=== PATIENT | female | born 1975 | race Caucasian/White ===

== ENCOUNTER → 2018-04-04 | Outpatient (CLI) | payer MEDICAID ==
[2018-04-04 10:02] LABS: Basophils % (A) 0 %; Eosinophils # (A) 0.1 k/uL (0-0.7); Eosinophils % (A) 1 %; HCT 36.9 % (34.0-46.0); HGB 12.3 gm/dL (11.4-16.0); Lymphocytes # (A) 2.4 k/uL (1.0-4.8); Lymphocytes % (A) 23 %; MCH 27.9 pg (25.0-35.0); MCHC 33.2 g/dL (31.0-37.0); MCV 84.1 fL (80.0-100.0); Mean Platelet Volume 6.9; Monocytes # (A) 0.4 k/uL (0-1.0); Monocytes % (A) 4 %; Neutrophils # (A) 7.2 k/uL (1.3-7.7); Neutrophils % (A) 69 %; Platelet Count 253 k/uL (150-450); RBC 4.39 m/uL (3.80-5.40); RDW 13.7 % (11.5-15.5); WBC 10.4 k/uL (3.8-10.6)
[2018-04-04 13:11] LABS: Erythrocyte Sedimentation Rate 8 mm/hr (0-20)
[2018-04-04 17:11] LABS: Gliadin AB IgA, Unit <0.2 U/mL
[2018-04-04 18:03] LABS: Peanut IgE <0.10 kU/L
[2018-04-04 18:25] LABS: Walnut IgE (Food) <0.10 kU/L
[2018-04-05 13:39] LABS: Almond IgE <0.35 kU/L (<0.35); Almond IgE Class CLASS 0; Cashew IgE <0.35 kU/L (<0.35); Pecan IgE <0.35 kU/L (<0.35); Pecan IgE Class CLASS 0
[2018-04-05 14:24] LABS: Immunoglobulin M 90.1 mg/dL (40.0-280.0)
[2018-04-05 14:27] LABS: Immunoglobulin A 73.7 mg/dL (60.0-350.0)
== END | disposition home or self-care (01) ==
LOC: LABWHC1 09:24
PROVIDERS: ATTEND Orthopaedic Surgery
DX: K21.9 Gastro-esophageal reflux disease without esophagitis (principal); H66.90 Otitis media, unspecified, unspecified ear; M12.9 Arthropathy, unspecified
CPT/HCPCS: 36415; 82784; 82785; 83516; 85025; 85652; 86003; 86140; 86160

== ENCOUNTER → 2018-04-11 | Outpatient (CLI) | payer MEDICAID ==
[2018-04-12 01:11] LABS: Vitamin D 25 Hydroxy 18.9 ng/mL (30.0-100.0)
[2018-04-12 12:11] LABS: IgG Subclass 4 30.4 mg/dL (3.0-175.0)
== END | disposition home or self-care (01) ==
LOC: LABWHC1 17:28
PROVIDERS: ATTEND Allergy & Immunology
DX: A41.9 Sepsis, unspecified organism (principal); E55.9 Vitamin D deficiency, unspecified; H66.91 Otitis media, unspecified, right ear; J32.9 Chronic sinusitis, unspecified
CPT/HCPCS: 36415; 82306; 82787; 86003; 86317

== ENCOUNTER 2018-05-07 14:46 | Emergency (ER) | payer MEDICAID ==
[2018-05-07 15:48] VITALS: RESP 18
[2018-05-07 18:49] LABS: Basophils % (A) 0 %; Eosinophils % (A) 0 %; HCT 38.5 % (34.0-46.0); HGB 12.3 gm/dL (11.4-16.0); Lymphocytes # (A) 1.4 k/uL (1.0-4.8); Lymphocytes % (A) 14 %; MCH 27.1 pg (25.0-35.0); MCHC 31.9 g/dL (31.0-37.0); MCV 84.9 fL (80.0-100.0); Mean Platelet Volume 7.5; Monocytes # (A) 0.3 k/uL (0-1.0); Monocytes % (A) 3 %; Neutrophils # (A) 8.3 k/uL (1.3-7.7); Neutrophils % (A) 82 %; Platelet Count 281 k/uL (150-450); RBC 4.54 m/uL (3.80-5.40); RDW 13.5 % (11.5-15.5); WBC 10.2 k/uL (3.8-10.6)
[2018-05-07 18:58] LABS: ALT 36 U/L (9-52); AST 21 U/L (14-36); Albumin 4.1 g/dL (3.5-5.0); Alkaline Phosphatase 94 U/L (38-126); Amylase 60 U/L (30-110); Anion Gap 11 mmol/L; Blood Urea Nitrogen 12 mg/dL (7-17); Calcium 9.2 mg/dL (8.4-10.2); Carbon Dioxide 21 mmol/L (22-30); Chloride 109 mmol/L (98-107); Glucose 159 mg/dL (74-99); Lipase 60 U/L (23-300); Sodium 141 mmol/L (137-145); Total Bilirubin 0.3 mg/dL (0.2-1.3); Total Protein 6.7 g/dL (6.3-8.2)
[2018-05-07] MEDS ORDERED: KETOROLAC 30 MG/ML 1 ML VIAL IVP STA (20:18)
[2018-05-07] MEDS ORDERED: MORPHINE SULFATE 2 MG/ML SYRINGE IVP STA (20:18)
[2018-05-07] MEDS ORDERED: ONDANSETRON 4 MG/2 ML VIAL IVP STA (20:18)
[2018-05-07] MEDS ORDERED: SODIUM CHLORIDE 0.9% 1,000 ML IV ONE (20:18)
--- NOTE | 2018-05-07 20:21 | ED ---
Abdominal Pain HPI - General Chief Complaint: Abdominal Pain Stated Complaint: Abd Pain Time Seen by Provider: 05/07/18 19:51 Source: patient Mode of arrival: ambulatory Limitations: no limitations - History of Present Illness Initial Comments: 43-year-old female patient presents the emergency department today for complaints of left flank pain that radiates into the left lower quadrant. Patient does have a history of kidney stones and states this feels similar. Patient states that pain started around 11 AM today. Patient states that the pain in her back is sharp and stabbing. States she has been nauseated has been vomiting all day today. States she hasn't been able to keep any food or fluids down. She denies any fevers or chills. States she hasn't been able to urinate. Denies any constipation or diarrhea. Patient denies any recent rash, shortness breath, chest pain, numbness, tingling, dizziness, weakness, hematuria , dysuria, urinary urgency, urinary frequency, headache, visual changes, or any other complaints. - Related Data Home Medications Medication Instructions Recorded Confirmed ARIPiprazole [Abilify] 2.5 mg PO DAILY 05/07/18 05/07/18 Butalb/APAP/Caff 50-325-40Mg 1 tab PO Q4H PRN 05/07/18 05/07/18 [Fioricet 50-325-40] Eszopiclone 3 mg PO HS 05/07/18 05/07/18 Lisinopril [Zestril] 20 mg PO DAILY 05/07/18 05/07/18 Metoprolol Succinate (ER) [Toprol 100 mg PO BID 05/07/18 05/07/18 Xl] Pregabalin [Lyrica] 200 mg PO BID 05/07/18 05/07/18 Vortioxetine Hydrobromide 10 mg PO DAILY 05/07/18 05/07/18 [Trintellix] Previous Rx's Medication Instructions Recorded Hydrocodone/Acetaminophen [Talala 1 tab PO Q6HR PRN #12 tab 05/07/18 5-325] Ibuprofen [Motrin] 600 mg PO Q8HR PRN #30 tab 05/07/18 Ondansetron [Zofran ODT] 4 mg PO Q8HR PRN #10 tab 05/07/18 Tamsulosin HCl [Flomax] 0.4 mg PO DAILY #7 cap 05/07/18 Allergies Allergy/AdvReac Type Severity Reaction Status Date / Time bupropion [From Wellbutrin] Allergy Hallucinati Verified 05/07/18 20:00 ons fluoxetine [From Prozac] Allergy Hallucinati Verified 05/07/18 20:00 ons venlafaxine [From Effexor] Allergy Hallucinati Verified 05/07/18 20:00 ons SAI Inhibitors AdvReac ANGIOEDEMA Verified 05/07/18 20:01 Review of Systems ROS Statement: Those systems with pertinent positive or pertinent negative responses have been documented in the HPI. ROS Other: All systems not noted in ROS Statement are negative. Past Medical History Past Medical History: Hypertension Additional Past Medical History / Comment(s): kidney stones History of Any Multi-Drug Resistant Organisms: None Reported Past Surgical History: Bariatric Surgery, Section, Cholecystectomy, Hysterectomy, Orthopedic Surgery Past Psychological History: Anxiety, Depression Smoking Status: Never smoker Past Alcohol Use History: None Reported Past Drug Use History: None Reported General Exam Limitations: no limitations General appearance: alert, in no apparent distress, other (This is a well- developed, obese adult female patient in no acute distress. Vital signs upon presentation are temperature 98.2F, pulse 68, respirations 18, blood pressure 146/89, pulse ox 98% on room air.) Eye exam: Present: normal appearance, PERRL, EOMI. Absent: scleral icterus, conjunctival injection, periorbital swelling ENT exam: Present: normal exam, normal oropharynx, mucous membranes moist Respiratory exam: Present: normal lung sounds bilaterally. Absent: respiratory distress, wheezes, rales, rhonchi, stridor Cardiovascular Exam: Present: regular rate, normal rhythm, normal heart sounds. Absent: systolic murmur, diastolic murmur, rubs, gallop, clicks GI/Abdominal exam: Present: soft, normal bowel sounds. Absent: distended, tenderness, guarding, rebound, rigid Back exam: Present: normal inspection, CVA tenderness (L). Absent: CVA tenderness (R) Neurological exam: Present: alert, oriented X3, CN II-XII intact Psychiatric exam: Present: normal affect, normal mood Skin exam: Present: warm, dry, intact, normal color. Absent: rash Course Vital Signs 08/20/18 08/20/18 15:46 22:31 Temperature 98 F 98.3 F Pulse Rate 68 95 Respiratory 18 18 Rate Blood Pressure 146/89 147/67 O2 Sat by Pulse 98 98 Oximetry Medical Decision Making - Medical Decision Making 43-year-old female patient presents the emergency department today for evaluation of left flank pain radiates down into her left lower quadrant. Patient does have history of kidney stones states that her pain is similar to her previous episode. Urinalysis did show evidence of calcium oxalate crystals as well as blood. Both her symptoms and urinalysis findings are consistent with kidney stone. Patient was given IV pain medication, IV fluids, and IV nausea medication, she is feeling improved upon reevaluation. She'll be given prescriptions for pain management as well as Flomax at home. She is instructed to follow-up with urology for further evaluation, she has seen Dr. Decker in the past. Patient also did have elevated blood sugar at 159 on lab evaluation. She also had presence of glucose in the urine. I did discuss this finding with the patient and did discuss my concern for possible diabetes. She was given follow-up for primary care physician. Return parameters were discussed in detail. Patient is discharged in stable condition. She verbalizes understanding and agrees this plan. - Lab Data Result diagrams: 05/07/18 18:37 05/07/18 18:37 Lab Results 05/07/18 05/07/18 05/07/18 Range/Units 18:37 18:37 21:00 WBC 10.2 (3.8-10.6) k/uL RBC 4.54 (3.80-5.40) m/uL Hgb 12.3 (11.4-16.0) gm/dL Hct 38.5 (34.0-46.0) % MCV 84.9 (80.0-100.0) fL MCH 27.1 (25.0-35.0) pg MCHC 31.9 (31.0-37.0) g/dL RDW 13.5 (11.5-15.5) % Plt Count 281 (150-450) k/uL Neutrophils % 82 % Lymphocytes % 14 % Monocytes % 3 % Eosinophils % 0 % Basophils % 0 % Neutrophils # 8.3 H (1.3-7.7) k/uL Lymphocytes # 1.4 (1.0-4.8) k/uL Monocytes # 0.3 (0-1.0) k/uL Eosinophils # 0.0 (0-0.7) k/uL Basophils # 0.0 (0-0.2) k/uL Sodium 141 (137-145) mmol/L Potassium 4.0 (3.5-5.1) mmol/L Chloride 109 H (98-107) mmol/L Carbon Dioxide 21 L (22-30) mmol/L Anion Gap 11 mmol/L BUN 12 (7-17) mg/dL Creatinine 0.67 (0.52-1.04) mg/dL Est GFR (CKD-EPI)AfAm >90 (>60 ml/min/1.73 sqM) Est GFR (CKD-EPI)NonAf >90 (>60 ml/min/1.73 sqM) Glucose 159 H (74-99) mg/dL Calcium 9.2 (8.4-10.2) mg/dL Total Bilirubin 0.3 (0.2-1.3) mg/dL AST 21 (14-36) U/L ALT 36 (9-52) U/L Alkaline Phosphatase 94 (38-126) U/L Total Protein 6.7 (6.3-8.2) g/dL Albumin 4.1 (3.5-5.0) g/dL Amylase 60 (30-110) U/L Lipase 60 (23-300) U/L Urine Color Yellow Urine Appearance Cloudy H (Clear) Urine pH 5.5 (5.0-8.0) Ur Specific Lequire 1.024 (1.001-1.035) Urine Protein 1+ H (Negative) Urine Glucose (UA) Trace H (Negative) Urine Ketones 1+ H (Negative) Urine Blood Moderate H (Negative) Urine Nitrite Negative (Negative) Urine Bilirubin Negative (Negative) Urine Urobilinogen <2.0 (<2.0) mg/dL Ur Leukocyte Esterase Negative (Negative) Urine RBC 53 H (0-5) /hpf Urine WBC 3 (0-5) /hpf Ur Squamous Epith Cells 10 H (0-4) /hpf Calcium Oxalate Crystal Occasional H (None) /hpf Urine Bacteria Rare H (None) /hpf Urine Mucus Occasional H (None) /hpf Urine HCG, Qual (Not Detectd) 05/07/18 Range/Units 21:00 WBC (3.8-10.6) k/uL RBC (3.80-5.40) m/uL Hgb (11.4-16.0) gm/dL Hct (34.0-46.0) % MCV (80.0-100.0) fL MCH (25.0-35.0) pg MCHC (31.0-37.0) g/dL RDW (11.5-15.5) % Plt Count (150-450) k/uL Neutrophils % % Lymphocytes % % Monocytes % % Eosinophils % % Basophils % % Neutrophils # (1.3-7.7) k/uL Lymphocytes # (1.0-4.8) k/uL Monocytes # (0-1.0) k/uL Eosinophils # (0-0.7) k/uL Basophils # (0-0.2) k/uL Sodium (137-145) mmol/L Potassium (3.5-5.1) mmol/L Chloride (98-107) mmol/L Carbon Dioxide (22-30) mmol/L Anion Gap mmol/L BUN (7-17) mg/dL Creatinine (0.52-1.04) mg/dL Est GFR (CKD-EPI)AfAm (>60 ml/min/1.73 sqM) Est GFR (CKD-EPI)NonAf (>60 ml/min/1.73 sqM) Glucose (74-99) mg/dL Calcium (8.4-10.2) mg/dL Total Bilirubin (0.2-1.3) mg/dL AST (14-36) U/L ALT (9-52) U/L Alkaline Phosphatase (38-126) U/L Total Protein (6.3-8.2) g/dL Albumin (3.5-5.0) g/dL Amylase (30-110) U/L Lipase (23-300) U/L Urine Color Urine Appearance (Clear) Urine pH (5.0-8.0) Ur Specific Lequire (1.001-1.035) Urine Protein (Negative) Urine Glucose (UA) (Negative) Urine Ketones (Negative) Urine Blood (Negative) Urine Nitrite (Negative) Urine Bilirubin (Negative) Urine Urobilinogen (<2.0) mg/dL Ur Leukocyte Esterase (Negative) Urine RBC (0-5) /hpf Urine WBC (0-5) /hpf Ur Squamous Epith Cells (0-4) /hpf Calcium Oxalate Crystal (None) /hpf Urine Bacteria (None) /hpf Urine Mucus (None) /hpf Urine HCG, Qual Not Detected (Not Detectd) - Radiology Data Radiology results: report reviewed, image reviewed Two-view x-ray of the abdomen is obtained. There is a gastric sleeve. There are clips from cholecystectomy. There is no sign of intestinal obstruction or pneumoperitoneum. Fecal pattern is normal. There are no pathologic calcifications. Impression by Dr. Solomon shows nonacute abdomen. Disposition Clinical Impression: Kidney stone Disposition: HOME SELF-CARE Condition: Good Instructions: Kidney Stones (ED), How to Strain Your Urine (ED) Additional Instructions: Increase fluids. Take medications as directed. Follow-up with urology for recheck as soon as possible. Return here immediately for any new, worsening, or concerning symptoms. Prescriptions: Hydrocodone/Acetaminophen [Talala 5-325] 1 tab PO Q6HR PRN #12 tab PRN Reason: Pain Ibuprofen [Motrin] 600 mg PO Q8HR PRN #30 tab PRN Reason: Pain Ondansetron [Zofran ODT] 4 mg PO Q8HR PRN #10 tab PRN Reason: Nausea Tamsulosin HCl [Flomax] 0.4 mg PO DAILY #7 cap Is patient prescribed a controlled substance at d/c from ED?: No Referrals: None,Stated [Primary Care Provider] - 1-2 days Marlon Decker MD [STAFF PHYSICIAN] - 1-2 days Time of Disposition: 21:40
[2018-05-07 21:22] LABS: Appearance,Urine Cloudy (Clear); Bacteria,Urine Rare /hpf; Bilirubin,Urine Negative (Negative); Blood,Urine Moderate (Negative); Calcium Oxalate Crystals,Urine Occasional /hpf; Color,Urine Yellow; Glucose,Urine (UA) Trace (Negative); Ketones,Urine 1+ (Negative); Leukocyte Esterase,Urine Negative (Negative); Mucus,Urine Occasional /hpf; Nitrite,Urine Negative (Negative); PH, Urine 5.5 (5.0-8.0); Protein,Urine 1+ (Negative); RBC,Urine 53 /hpf (0-5); Specific Gravity,Urine 1.024 (1.001-1.035); Squamous Epithelial Cell,Urine 10 /hpf (0-4); Urobilinogen,Urine <2.0 mg/dL (<2.0); WBC,Urine 3 /hpf (0-5)
--- NOTE | 2018-05-07 21:32 | XR ---
EXAMINATION TYPE: XR KUB DATE OF EXAM: 05/07/2018 COMPARISON: NONE HISTORY: Flank pain TECHNIQUE: 2 views FINDINGS: There is a gastric sleeve. There are clips from cholecystectomy. There is no sign of intest inal obstruction or pneumoperitoneum. Fecal pattern is normal. There are no pathologic calcifications . IMPRESSION: Nonacute abdomen.
[2018-05-07] MEDS ORDERED: ACET/COD 300 MG/30 MG STARTER PACK 6 TAB BTL PO STA (21:40)
[2018-05-07] MEDS ORDERED: ONDANSETRON 4 MG ODT STARTER PACK 2 TAB BTL PO STA (21:40)
[2018-05-07] MEDS ORDERED: MORPHINE SULFATE 4 MG/ML SYRINGE IVP STA (21:41)
[2018-05-07] MEDS ORDERED: IBUPROFEN 600 MG STARTER PACK 4 TAB BTL PO STA (21:41)
[2018-05-07 22:32] VITALS: BP 147/67; PULSE 95; TEMP 98.3
== END 2018-05-07 22:40 | disposition home or self-care (01) ==
LOC: EC 14:46
DX: N20.0 Calculus of kidney (principal); Z87.442 Personal history of urinary calculi; I10 Essential (primary) hypertension; F32.9 Major depressive disorder, single episode, unspecified; F41.9 Anxiety disorder, unspecified; Z79.899 Other long term (current) drug therapy; Z88.8 Allergy status to other drugs, medicaments and biological substances; Z90.49 Acquired absence of other specified parts of digestive tract; Z98.84 Bariatric surgery status
CPT/HCPCS: 36415; 80053; 82150; 83690; 85025; 81001; 81025; 74018; 99284; 96374; 96375 ×2; 96376; 96361 ×2; J2270 ×2; J2405; J1885; S0119

== ENCOUNTER → 2018-07-04 | Outpatient (CLI) | payer MEDICAID | LOC: LABWHC1 11:28 | PROVIDERS: ATTEND Allergy & Immunology | DX: J32.9 Chronic sinusitis, unspecified (principal); A41.9 Sepsis, unspecified organism | CPT/HCPCS: 36415; 82306; 86003; 86317 ==

== ENCOUNTER → 2018-07-04 | Outpatient (CLI) | payer MEDICAID ==
--- NOTE | 2018-07-04 13:00 | XR ---
EXAMINATION TYPE: XR shoulder complete LT DATE OF EXAM: 07/04/2018 COMPARISON: NONE HISTORY: 43-year-old female with left shoulder pain TECHNIQUE: 3 views FINDINGS: Mild degenerative spurring at the AC joint. Subacromial space is preserved. No tendinous or bursal ca lcifications. No acute fracture, subluxation, or dislocation. Hazy densities in the left lung could b e due to low lung volumes. IMPRESSION: Mild AC joint OA. No acute osseous abnormality seen. Hazy densities in the left lung could be due to low lung volumes and generalized atelectasis.
== END ==
LOC: RADXRMAIN 11:06
PROVIDERS: ATTEND Psychiatry & Neurology Neurology
DX: M19.012 Primary osteoarthritis, left shoulder (principal)

== ENCOUNTER 2018-09-11 14:14 | Observation (INO) | payer MEDICAID ==
[2018-09-11] MEDS ORDERED: ONDANSETRON 4 MG/2 ML VIAL IVP STA (14:46)
[2018-09-11] MEDS ORDERED: NITROGLYCERIN SL TABS 0.4 MG TAB SUBLINGUAL STA (14:46)
[2018-09-11] MEDS ORDERED: SODIUM CHLORIDE 0.9% 500 ML 500 ML IV STA (14:46)
[2018-09-11] MEDS ORDERED: ASPIRIN 81 MG PO STA (14:46)
[2018-09-11] MEDS ORDERED: MORPHINE SULFATE 4 MG/ML SYRINGE IV STA (14:46)
--- NOTE | 2018-09-11 14:49 | ED ---
Chest Pain HPI - General Chief Complaint: Chest Pain Stated Complaint: Flank Pain Time Seen by Provider: 09/11/18 14:40 Source: patient Mode of arrival: ambulatory Limitations: no limitations - History of Present Illness Initial Comments: 43-year-old female patient presents to the emergency department today for evaluation of left-sided chest pain radiating into the left shoulder. Patient states pain started 2 hours ago and has been constant since. Patient states the pain has been steadily worsening. She describes the pain as a dull ache with occasional sharp pains. States that she is feeling short of breath, nausea , and sweaty with this. Denies any dizziness or weakness. Patient states she has had a cough for the last couple of weeks that has been persistent. States she is coughing up sputum, denies any hemoptysis. Patient denies any recent rash , fever, chills, abdominal pain, diarrhea, constipation, back pain, numbness, tingling, dizziness, weakness, hematuria, dysuria, urinary urgency, urinary frequency, headache, visual changes, or any other complaints. - Related Data Home Medications Medication Instructions Recorded Confirmed Butalb/APAP/Caff 50-325-40Mg 1 tab PO Q4H PRN 05/07/18 09/11/18 [Fioricet 50-325-40] Eszopiclone 3 mg PO HS 05/07/18 09/11/18 Metoprolol Succinate (ER) [Toprol 100 mg PO BID 05/07/18 09/11/18 Xl] Pregabalin [Lyrica] 200 mg PO BID 05/07/18 09/11/18 Vortioxetine Hydrobromide 10 mg PO DAILY 05/07/18 09/11/18 [Trintellix] Ibuprofen [Advil] 800 mg PO Q8HR PRN 09/11/18 09/11/18 Allergies Allergy/AdvReac Type Severity Reaction Status Date / Time bupropion [From Wellbutrin] Allergy Hallucinati Verified 09/11/18 19:14 ons fluoxetine [From Prozac] Allergy Hallucinati Verified 09/11/18 19:14 ons venlafaxine [From Effexor] Allergy Hallucinati Verified 09/11/18 19:14 ons SAI Inhibitors AdvReac ANGIOEDEMA Verified 09/11/18 19:14 Review of Systems ROS Statement: Those systems with pertinent positive or pertinent negative responses have been documented in the HPI. ROS Other: All systems not noted in ROS Statement are negative. EKG Findings - EKG Comments: EKG Findings:: EKG obtained at 1435 shows normal sinus rhythm with a ventricular rate of 95, TX interval 136, QRS duration 82, QT 338, QTC 424. No evidence of ST elevation or depression. EKG #2 obtained at 1536 shows sinus rhythm with a ventricular rate of 80, TX interval 138, QRS duration 80, QT 368, QTC 424. No evidence of ST elevation or depression. Past Medical History Past Medical History: Hypertension Additional Past Medical History / Comment(s): kidney stones History of Any Multi-Drug Resistant Organisms: None Reported Past Surgical History: Bariatric Surgery, Section, Cholecystectomy, Hysterectomy, Orthopedic Surgery Past Psychological History: Anxiety, Depression Smoking Status: Never smoker Past Alcohol Use History: None Reported Past Drug Use History: None Reported General Exam Limitations: no limitations General appearance: alert, in no apparent distress Eye exam: Present: normal appearance, PERRL, EOMI. Absent: scleral icterus, conjunctival injection, periorbital swelling ENT exam: Present: normal exam, normal oropharynx, mucous membranes moist Respiratory exam: Present: normal lung sounds bilaterally. Absent: respiratory distress, wheezes, rales, rhonchi, stridor Cardiovascular Exam: Present: regular rate, normal rhythm, normal heart sounds. Absent: systolic murmur, diastolic murmur, rubs, gallop, clicks GI/Abdominal exam: Present: soft, normal bowel sounds. Absent: distended, tenderness, guarding, rebound, rigid Neurological exam: Present: alert, oriented X3, CN II-XII intact Psychiatric exam: Present: normal affect, normal mood Skin exam: Present: warm, dry, intact, normal color. Absent: rash Course Vital Signs 09/11/18 09/11/18 09/11/18 14:31 14:36 15:00 Temperature 98.0 F Pulse Rate 100 109 H 116 H Pulse Rate [ 110 H Camera Technician ] Respiratory 18 20 16 Rate Blood Pressure 184/112 178/126 176/102 O2 Sat by Pulse 96 95 97 Oximetry 09/11/18 09/11/18 09/11/18 15:30 16:00 16:40 Temperature Pulse Rate 93 88 72 Pulse Rate [ Camera Technician ] Respiratory 18 18 15 Rate Blood Pressure 150/100 152/97 162/97 O2 Sat by Pulse 98 93 L 97 Oximetry 09/11/18 09/11/18 09/11/18 16:50 17:00 17:10 Temperature Pulse Rate 75 84 73 Pulse Rate [ Camera Technician ] Respiratory 16 19 12 Rate Blood Pressure 162/97 162/97 145/78 O2 Sat by Pulse 97 99 99 Oximetry 09/11/18 09/11/18 09/11/18 17:20 17:30 17:40 Temperature Pulse Rate 73 80 67 Pulse Rate [ Camera Technician ] Respiratory 17 16 17 Rate Blood Pressure 145/78 145/78 162/101 O2 Sat by Pulse 97 99 99 Oximetry 09/11/18 09/11/18 09/11/18 17:50 18:00 18:10 Temperature Pulse Rate 65 65 78 Pulse Rate [ Camera Technician ] Respiratory 18 20 16 Rate Blood Pressure 162/101 162/101 159/88 O2 Sat by Pulse 100 99 99 Oximetry 09/11/18 09/11/18 09/11/18 18:20 18:30 18:40 Temperature 97.8 F Pulse Rate 67 69 80 Pulse Rate [ Camera Technician ] Respiratory 16 14 16 Rate Blood Pressure 159/88 159/88 156/89 O2 Sat by Pulse Oximetry Chest Pain [facility] RADIOLOGY:Two-view x-ray of the chest is obtained. Report was reviewed in its entirety. Impression by Dr. Solomon shows normal chest. CT chest with contrast for PE was obtained. Report was reviewed in its entirety. Impression by Dr. Solomon shows gastroesophageal reflux. No evidence of pulmonary embolism. Previous surgery. MDM: 43-year-old female patient presented to the emergency department today for evaluation of sharp stabbing left-sided chest pain, nausea, shortness of breath , and sweats. Physical examination did reveal clear equal lung sounds. Abdomen soft and nontender. Labs reviewed, no acute abnormalities. Chest x- ray showed no acute cardio pulmonary process. Given patient's symptoms we did obtain CT of the chest with contrast for PE, this showed no evidence of dissection, aneurysm, or evidence of PE. Given patient's symptoms and risk factors will admit for observation, serial troponin, and evaluation by cardiology tomorrow. Did discuss findings, results, plan with the patient, she is agreeable. Disposition Clinical Impression: Chest pain Disposition: ADMITTED IP TO THIS HOSP Condition: Serious Decision to Admit Reason: Admit from EC Decision Date: 09/11/18 Decision Time: 17:04
[2018-09-11 14:57] LABS: Glucose,Whole Blood 135 mg/dL (75-99)
[2018-09-11 15:08] LABS: Basophils % (A) 0 %; Eosinophils # (A) 0.2 k/uL (0-0.7); Eosinophils % (A) 2 %; HCT 40.7 % (34.0-46.0); HGB 13.6 gm/dL (11.4-16.0); Lymphocytes % (A) 32 %; MCH 27.9 pg (25.0-35.0); MCHC 33.4 g/dL (31.0-37.0); MCV 83.6 fL (80.0-100.0); Mean Platelet Volume 7.1; Monocytes # (A) 0.5 k/uL (0-1.0); Monocytes % (A) 5 %; Neutrophils # (A) 5.4 k/uL (1.3-7.7); Neutrophils % (A) 58 %; Platelet Count 246 k/uL (150-450); RBC 4.87 m/uL (3.80-5.40); WBC 9.3 k/uL (3.8-10.6)
[2018-09-11 15:18] LABS: ALT 26 U/L (9-52); AST 15 U/L (14-36); Albumin 3.9 g/dL (3.5-5.0); Alkaline Phosphatase 84 U/L (38-126); Anion Gap 8 mmol/L; Blood Urea Nitrogen 8 mg/dL (7-17); Calcium 9.4 mg/dL (8.4-10.2); Carbon Dioxide 25 mmol/L (22-30); Chloride 106 mmol/L (98-107); Glucose 156 mg/dL (74-99); Potassium 4.4 mmol/L (3.5-5.1); Sodium 139 mmol/L (137-145); Total Bilirubin 0.6 mg/dL (0.2-1.3); Total Protein 6.7 g/dL (6.3-8.2)
[2018-09-11 15:22] LABS: D-Dimer 0.23 mg/L FEU (<0.60); INR 0.9 (<1.2); Prothrombin Time 9.9 sec (9.0-12.0)
[2018-09-11 15:25] LABS: Creatine Kinase 35 U/L (30-135)
[2018-09-11 15:38] LABS: Creatine Kinase MB 0.3 ng/mL (0.0-2.4); Troponin I <0.012 ng/mL (0.000-0.034)
--- NOTE | 2018-09-11 15:53 | XR ---
EXAMINATION TYPE: XR chest 2V DATE OF EXAM: 09/11/2018 COMPARISON: NONE HISTORY: Left side chest pain TECHNIQUE: Frontal and lateral views of the chest are obtained. FINDINGS: Heart and mediastinum are normal. Lungs are clear. Diaphragm is normal. Bony thorax is nor mal. There are chest leads. IMPRESSION: Normal chest.
--- NOTE | 2018-09-11 15:58 | CT ---
EXAMINATION TYPE: CT chest angio for PE DATE OF EXAM: 09/11/2018 COMPARISON: None HISTORY: Left side chest pain, cough, and congestion. CT DLP: 511.2 mGycm Automated exposure control for dose reduction was used. CONTRAST: CT Chest for pulmonary embolism performed with with IV Contrast, patient injected with 100 mL of Isov ue 370. There are 3-D post processed images. FINDINGS: The lungs are clear of infiltrate. There is no evidence of a pulmonary mass. There is no mediastinal adenopathy. Heart size is normal. There is no pericardial effusion. Thoracic aorta appears intact wit hout evidence of aneurysm or dissection. There is normal contrast opacification of the pulmonary arteries. I see no filling defect. There is n o pleural effusion. There are no hilar masses. There is fluid in the distal esophagus consistent with reflux. There is probably a hiatal hernia. There is spurring in the thoracic spine. There is bariatr ic surgery and gastric sling noted. IMPRESSION: Gastroesophageal reflux. No evidence of pulmonary embolism. Previous surgery.
[2018-09-11] MEDS ORDERED: NITROGLYCERIN SL TABS 0.4 MG TAB SUBLINGUAL PRN (17:00)
[2018-09-11] MEDS ORDERED: MORPHINE SULFATE 2 MG/ML SYRINGE IV PRN (17:11)
[2018-09-11 17:13] LABS: Amylase 50 U/L (30-110); Lipase 89 U/L (23-300)
--- NOTE | 2018-09-11 17:28 | P.HPIM ---
History of Present Illness H&P Date: 09/11/18 Chief Complaint: chest pain 43-year-old female with PMH of depression, cervical disc herniation and tachycardia presents to the ED for chest pain. Patient reports experiencing chest pain that started around 11 AM as she was watching TV. Patient states that the chest pain is located directly under her left breast. Pain is 7 out of 10 in severity and occasionally radiates to the back. Patient reports that the pain is always aching, but has periods of sharp and stabbing episodes. Patient states that her chest pain is associated with sweating, left shoulder tingling and nausea. patient reports the pain to be worsened with cough and with deep inspiration. Of note, patient reports suffering from a cough for the past 2 weeks. Her cough is productive of yellow sputum, associated with rhinorrhea and nasal congestion. Patient reported going to her PCP, took a 3 day course of antibiotics. This did not resolve her infection, and she was then prescribed a 10 day course of antibiotics with a chest x ray. chest x-ray revealed no pneumonia but did show a pleural nodule for which she has the CT chest scheduled in the outpatient setting. Patient reports measuring a maximum temperature of 99.5F. She denies any headache, lower extremity edema, vomiting, palpitations, changes in urination or bowel habits. No changes in appetite or weight. In the ED, CBC and BMP was unremarkable except for a glucose of 156. Initial troponin was less than 0.012. D-dimer was 0.23, CTA of the chest was negative for PE. Vital signs were within normal limits except for a heart rate of 110. Chest x-ray was within normal limits. Patient is admitted for chest pain, rule out acute coronary syndrome. Cardiology is on consult. Review of Systems All systems: negative Past Medical History Past Medical History: Hypertension Additional Past Medical History / Comment(s): kidney stones History of Any Multi-Drug Resistant Organisms: None Reported Past Surgical History: Bariatric Surgery, Section, Cholecystectomy, Hysterectomy, Orthopedic Surgery Past Psychological History: Anxiety, Depression Smoking Status: Never smoker Past Alcohol Use History: None Reported Past Drug Use History: None Reported Medications and Allergies Home Medications Medication Instructions Recorded Confirmed Type ARIPiprazole [Abilify] 2.5 mg PO DAILY 05/07/18 05/07/18 History Butalb/APAP/Caff 50-325-40Mg 1 tab PO Q4H PRN 05/07/18 05/07/18 History [Fioricet 50-325-40] Eszopiclone 3 mg PO HS 05/07/18 05/07/18 History Hydrocodone/Acetaminophen [[place] 1 tab PO Q6HR PRN #12 tab 05/07/18 Rx 5-325] Ibuprofen [Motrin] 600 mg PO Q8HR PRN #30 tab 05/07/18 Rx Lisinopril [Zestril] 20 mg PO DAILY 05/07/18 05/07/18 History Metoprolol Succinate (ER) [Toprol 100 mg PO BID 05/07/18 05/07/18 History Xl] Ondansetron [Zofran ODT] 4 mg PO Q8HR PRN #10 tab 05/07/18 Rx Pregabalin [Lyrica] 200 mg PO BID 05/07/18 05/07/18 History Tamsulosin HCl [Flomax] 0.4 mg PO DAILY #7 cap 05/07/18 Rx Vortioxetine Hydrobromide 10 mg PO DAILY 05/07/18 05/07/18 History [Trintellix] Allergies Allergy/AdvReac Type Severity Reaction Status Date / Time bupropion [From Wellbutrin] Allergy Hallucinati Verified 05/07/18 20:00 ons fluoxetine [From Prozac] Allergy Hallucinati Verified 05/07/18 20:00 ons venlafaxine [From Effexor] Allergy Hallucinati Verified 05/07/18 20:00 ons SAI Inhibitors AdvReac ANGIOEDEMA Verified 05/07/18 20:01 Physical Exam Vitals: Vital Signs Temp Pulse Pulse Resp BP Pulse Ox 09/11/18 16:00 88 18 152/97 93 L 09/11/18 15:30 93 18 150/100 98 09/11/18 15:00 116 H 16 176/102 97 09/11/18 14:36 98.0 F 109 H 110 H 20 178/126 95 09/11/18 14:31 100 18 184/112 96 Intake and Output 09/11/18 09/11/18 09/11/18 06:59 14:59 22:59 Other: Weight 117.934 kg General: [non toxic], [no distress], [appears at stated age] Derm: [warm], [dry] Head: [atraumatic], [normocephalic], [symmetric] Eyes: [EOMI], [no lid lag], [anicteric sclera] Mouth: [no lip lesion], [mucus membranes moist] Cardiovascular: [sinus tachycardia], [no murmur], [positive DP pulse bilateral] Lungs: [CTA bilateral], [no rhonchi, no rales] , [no accessory muscle use] Abdominal: [soft], [ nontender to palpation], [no guarding], [no appreciable organomegaly] Ext: [no gross muscle atrophy], [no edema], [no contractures] Neuro: [no focal neuro deficits] Psych: [Alert], [oriented], [appropriate affect] Results CBC & Chem 7: 09/11/18 14:50 09/11/18 14:50 Labs: Abnormal Lab Results - Last 24 Hours (Table) 09/11/18 09/11/18 Range/Units 14:50 14:53 Glucose 156 H (74-99) mg/dL POC Glucose (mg/dL) 135 H (75-99) mg/dL Assessment and Plan Assessment: Assessment and Plan 1. Chest pain: Appears non cardiac, pleuritic in nature (pleuritis?). Patient is afebrile with no leukocytosis. Plans to r/o ACS. D-Dimer 0.23, CTA negative to PE. Troponin < 0.012 x 1, EKG showing sinus tachycardia. CXR is negative. Pain management with Tylenol, Nitrostat PRN and Morphine 2 mg IV Q4H PRN for breakthrough. Start ASA 325 mg PO QD. Trend 2 Trop/EKG to r/o ACS. Telemetry monitoring. FU Echocardiogram, Cardiology consult 2. Sinus tachycardia: Possibly due to pain? Patient reports a long history with no identifiable cause by her PCP. Continue Metoprolol 100 mg PO BID. Telemetry monitoring. FU Cardiology consult. 3. Depression: Stable. Continue Trintellix 10 mg PO QD. 4. C6/C7 disk herniation: Stable. Continue Lyrica 200 mg PO BID. 5. DVT Prophylaxis: Low risk, SCD boots only. Patient is admitted for likely > 48 hour stay for chest pain, rule out acute coronary syndrome. Cardiology is on consult.
[2018-09-11 19:52] VITALS: BMI 43.0
[2018-09-11] MEDS ORDERED: ZOLPIDEM 5 MG TAB PO PRN (20:04)
[2018-09-11] MEDS: METOPROLOL SUCCINATE (ER) 100 MG TAB.ER.24H PO SCH (20:55)
[2018-09-11] MEDS: PREGABALIN 100 MG CAP PO SCH (20:55)
[2018-09-11] MEDS: NITROGLYCERIN OINT 1 INCH/GM PACKET TOPICAL SCH ×2 (20:56→22:23)
[2018-09-11] MEDS: VORTIOXETINE HYDROBROMIDE 10 MG TABLET PO SCH (20:56)
[2018-09-11] MEDS: ACETAMINOPHEN TAB 325 MG TAB PO PRN (22:23)
[2018-09-11 22:51] LABS: Creatine Kinase 41 U/L (30-135)
[2018-09-11 23:05] LABS: Creatine Kinase MB 0.4 ng/mL (0.0-2.4); Troponin I <0.012 ng/mL (0.000-0.034)
[2018-09-12 02:31] VITALS: RESP 18
[2018-09-12 03:13] LABS: Cholesterol 184 mg/dL (<200); HDL Cholesterol 42 mg/dL (40-60); LDL Cholesterol,Calculated 110 mg/dL (0-99); Triglycerides 162 mg/dL (<150)
[2018-09-12 03:16] LABS: Creatine Kinase 37 U/L (30-135)
[2018-09-12 03:29] LABS: Creatine Kinase MB 0.4 ng/mL (0.0-2.4); Troponin I <0.012 ng/mL (0.000-0.034)
[2018-09-12] MEDS: NITROGLYCERIN OINT 1 INCH/GM PACKET TOPICAL SCH ×2 (05:23→10:55)
[2018-09-12 07:13] VITALS: BP 93/50; PULSE 67; TEMP 98.8
[2018-09-12] MEDS: PREGABALIN 100 MG CAP PO SCH (08:03)
[2018-09-12] MEDS: ACETAMINOPHEN TAB 325 MG TAB PO PRN (08:04)
[2018-09-12] MEDS: VORTIOXETINE HYDROBROMIDE 10 MG TABLET PO SCH (08:05)
[2018-09-12] MEDS: METOPROLOL SUCCINATE (ER) 100 MG TAB.ER.24H PO SCH (08:43)
--- NOTE | 2018-09-12 08:44 | P.CRDCN ---
History of Present Illness Consult date: 09/12/18 History of present illness: This is a 43-year-old female with history of hypertension being treated with metoprolol has been having symptoms of bronchitis and cough a couple weeks. Yesterday she was watching TV and suddenly felt pain which is sharp in nature and of the left breast area. He seemed to be very localized. The pain is constant in nature. It is somewhat aggravated by coughing and also deep breathing. Not related to the movements of the chest. Patient took Motrin at home without much relief. Patient came to the emergency room. Her EKG did not reveal any acute changes. Cardiac enzymes studies are negative. Computed tomography scan of the chest was negative for any pulmonary emboli. Her pains appear to be atypical and probably related to her cough. Patient is being scheduled for an echocardiogram and stress echo. If the test are negative patient could be discharged home Review of Systems As per the chart Past Medical History Past Medical History: Hypertension Additional Past Medical History / Comment(s): kidney stones History of Any Multi-Drug Resistant Organisms: None Reported Past Surgical History: Bariatric Surgery, Section, Cholecystectomy, Hysterectomy, Orthopedic Surgery Additional Past Surgical History / Comment(s): Left knee replacement Past Psychological History: Anxiety, Depression Smoking Status: Never smoker Past Alcohol Use History: None Reported Past Drug Use History: None Reported Medications and Allergies Home Medications Medication Instructions Recorded Confirmed Type Butalb/APAP/Caff 50-325-40Mg 1 tab PO Q4H PRN 05/07/18 09/11/18 History [Fioricet 50-325-40] Eszopiclone 3 mg PO HS 05/07/18 09/11/18 History Metoprolol Succinate (ER) [Toprol 100 mg PO BID 05/07/18 09/11/18 History Xl] Pregabalin [Lyrica] 200 mg PO BID 05/07/18 09/11/18 History Vortioxetine Hydrobromide 10 mg PO DAILY 05/07/18 09/11/18 History [Trintellix] Ibuprofen [Advil] 800 mg PO Q8HR PRN 09/11/18 09/11/18 History Allergies Allergy/AdvReac Type Severity Reaction Status Date / Time bupropion [From Wellbutrin] Allergy Hallucinati Verified 09/11/18 19:14 ons fluoxetine [From Prozac] Allergy Hallucinati Verified 09/11/18 19:14 ons venlafaxine [From Effexor] Allergy Hallucinati Verified 09/11/18 19:14 ons SAI Inhibitors AdvReac ANGIOEDEMA Verified 09/11/18 19:14 Physical Exam Vitals: Vital Signs Temp Pulse Pulse Pulse Resp BP BP 09/12/18 07:12 98.8 F 67 18 93/50 09/12/18 04:00 98.7 F 72 18 104/62 09/12/18 03:24 18 09/12/18 02:30 98.7 F 96 18 144/85 09/12/18 00:00 83 17 113/73 09/11/18 20:00 98.8 F 93 17 134/72 09/11/18 18:40 97.8 F 80 16 156/89 09/11/18 18:30 69 14 159/88 09/11/18 18:20 67 16 159/88 09/11/18 18:10 78 16 159/88 09/11/18 18:00 65 20 162/101 09/11/18 17:50 65 18 162/101 09/11/18 17:40 67 17 162/101 09/11/18 17:30 80 16 145/78 09/11/18 17:20 73 17 145/78 09/11/18 17:10 73 12 145/78 09/11/18 17:00 84 19 162/97 09/11/18 16:50 75 16 162/97 09/11/18 16:40 72 15 162/97 09/11/18 16:00 88 18 152/97 09/11/18 15:30 93 18 150/100 09/11/18 15:00 116 H 16 176/102 09/11/18 14:36 98.0 F 109 H 110 H 20 178/126 09/11/18 14:31 100 18 184/112 Pulse Ox 09/12/18 07:12 97 09/12/18 04:00 94 L 09/12/18 03:24 09/12/18 02:30 99 09/12/18 00:00 94 L 09/11/18 20:00 98 09/11/18 18:40 09/11/18 18:30 09/11/18 18:20 09/11/18 18:10 99 09/11/18 18:00 99 09/11/18 17:50 100 09/11/18 17:40 99 09/11/18 17:30 99 09/11/18 17:20 97 09/11/18 17:10 99 09/11/18 17:00 99 09/11/18 16:50 97 09/11/18 16:40 97 09/11/18 16:00 93 L 09/11/18 15:30 98 09/11/18 15:00 97 09/11/18 14:36 95 09/11/18 14:31 96 Intake and Output 09/11/18 09/12/18 09/12/18 22:59 06:59 14:59 Other: Voiding Method Toilet # Voids 1 2 Weight 117.1 kg GENERAL EXAM: Patient is alert and oriented and doesn't appear to be in any acute distress HEENT: Normocephalic. Normal reaction of pupils, equal size, normal range of extraocular motion. No erythema or exudates in the throat. NECK: No masses, no nuchal rigidity. CHEST: Mild tenderness noted under the left breast LUNGS: Accept default HEART: [S1 and S2 normal with no audible mumurs or gallops. Regular rhythm, femorals equal on both sides..] ABDOMEN: No hepatosplenomegaly, normal bowel sounds, no guarding or rigidity. SKIN: No rashes CENTRAL NERVOUS SYSTEM: No focal deficits. EXTREMITIES: [No cyanosis, clubbing or edema.] Results 09/11/18 14:50 09/11/18 14:50 Cardiac Enzymes 09/11/18 09/11/18 09/11/18 Range/Units 14:50 14:50 22:09 AST 15 (14-36) U/L CK-MB (CK-2) 0.3 0.4 (0.0-2.4) ng/mL Troponin I <0.012 <0.012 (0.000-0.034) ng/mL 09/12/18 Range/Units 02:43 AST (14-36) U/L CK-MB (CK-2) 0.4 (0.0-2.4) ng/mL Troponin I <0.012 (0.000-0.034) ng/mL Coagulation 09/11/18 Range/Units 14:50 PT 9.9 (9.0-12.0) sec APTT 24.0 (22.0-30.0) sec Lipids 09/12/18 Range/Units 02:43 Triglycerides 162 H (<150) mg/dL Cholesterol 184 (<200) mg/dL HDL Cholesterol 42 (40-60) mg/dL CBC 09/11/18 Range/Units 14:50 WBC 9.3 (3.8-10.6) k/uL RBC 4.87 (3.80-5.40) m/uL Hgb 13.6 (11.4-16.0) gm/dL Hct 40.7 (34.0-46.0) % Plt Count 246 (150-450) k/uL Comprehensive Metabolic Panel 09/11/18 Range/Units 14:50 Sodium 139 (137-145) mmol/L Potassium 4.4 (3.5-5.1) mmol/L Chloride 106 (98-107) mmol/L Carbon Dioxide 25 (22-30) mmol/L BUN 8 (7-17) mg/dL Creatinine 0.60 (0.52-1.04) mg/dL Glucose 156 H (74-99) mg/dL Calcium 9.4 (8.4-10.2) mg/dL AST 15 (14-36) U/L ALT 26 (9-52) U/L Alkaline Phosphatase 84 (38-126) U/L Total Protein 6.7 (6.3-8.2) g/dL Albumin 3.9 (3.5-5.0) g/dL Current Medications Generic Name Dose Route Start Last Admin Trade Name Freq PRN Reason Stop Dose Admin Acetaminophen 650 mg 09/11/18 17:11 09/12/18 08:04 Tylenol Tab PO 650 mg Q6HR PRN Administration Mild Pain or Fever > 100.5 Aspirin 325 mg 09/12/18 09:00 09/12/18 08:03 Aspirin PO Not Given DAILY ARIANA Metoprolol Succinate 100 mg 09/11/18 21:00 09/11/18 20:55 Toprol Xl PO 100 mg BID RAIANA Administration Morphine Sulfate 2 mg 09/11/18 17:11 09/12/18 02:14 Morphine Sulfate (Inj) IV 2 mg Q4HR PRN Administration Severe Pain Nitroglycerin 0.5 inch 09/11/18 20:15 09/12/18 05:23 Nitro-Bid Oint TOPICAL Not Given Q6HR ARIANA Pregabalin 200 mg 09/11/18 21:00 09/12/18 08:03 Lyrica PO Not Given BID ARIANA Vortioxetine 10 mg 09/11/18 21:00 09/12/18 08:05 Trintellix PO Not Given DAILY ARIANA Zolpidem Tartrate 5 mg 09/11/18 20:04 09/11/18 22:23 Ambien PO 5 mg HS PRN Administration Insomnia Intake and Output 09/11/18 09/12/18 09/12/18 22:59 06:59 14:59 Other: Voiding Method Toilet # Voids 1 2 Weight 117.1 kg 09/11/18 14:50 09/11/18 14:50 EKG Interpretations (text) Showed sinus rhythm Assessment and Plan (1) Atypical chest pain Current Visit: Yes Status: Acute Code(s): R07.89 - OTHER CHEST PAIN SNOMED Code(s): 366783115 (2) Hypertension Current Visit: Yes Status: Acute Code(s): I10 - ESSENTIAL (PRIMARY) HYPERTENSION SNOMED Code(s): 73851240 (3) Cough Current Visit: Yes Status: Acute Code(s): R05 - COUGH SNOMED Code(s): 74547458 Plan: We'll proceed with a stress echo and also echocardiogram. If the test are normal. Patient could be discharged home.
[2018-09-12] MEDS ORDERED: VORTIOXETINE HYDROBROMIDE 10 MG TABLET PO SCH (09:00)
[2018-09-12] MEDS ORDERED: ASPIRIN 325 MG TAB PO SCH (09:00)
--- NOTE | 2018-09-12 10:47 | P.STRESS ---
- Stress Test Note Stress Test Results/Findings: Exam Performed: stress echo exercise with con Exam Date: 09/12/18 Reason for Exam: Chest Pain Height: 5 ft 5 in Weight: 117.1 kg Protocol: Sress Echo Stage: 2 Duration of Exercise: 7:26 Resting Heart Rate: 72 Resting Blood Pressure: 114/72 Maximum Achieved Heart Rate: 149 Maximum Achieved Blood Pressure: 215/88 85% PMHR: 149 100% PMHR: 175 METS: 8.5 Technologist Comment: Stress Test Results/Findings: This is a 43-year-old female was admitted to the hospital chest pain. Appear to be atypical. Patient also has history of hypertension. Stress data: Baseline EKG showed a sinus rhythm with normal MO interval, QRS duration. Blood pressure at rest is 114/72 with pulse rate of 72. Patient walked on the Marshall protocol for 7 minutes and 26 seconds achieving a maximal rate of 147 with a blood pressure 189/60. EKGs taken during and after the exercise did not reveal any significant changes from the baseline. Patient did not experience any chest pain. Echo data: Baseline echo images showed normal wall motion and thickening. Exercise echo images showed augmentation of wall motion and thickening in all the segments. Final impression: #1. Negative stress test #2. Negative stress echo.
--- NOTE | 2018-09-12 10:57 | ECHOF ---
Referral Reason:Chest pain MEASUREMENTS -------- HEIGHT: 165.1 cm WEIGHT: 117.0 kg BP: RVIDd: 3.1 cm (< 3.3) IVSd: 1.0 cm (0.6 - 1.1) LVIDd: 4.2 cm (3.9 - 5.3) LVPWd: 1.2 cm (0.6 - 1.1) IVSs: 2.0 cm LVIDs: 1.8 cm LVPWs: 1.5 cm Ao Diam: 3.0 cm (2.0 - 3.7) AV Cusp: 1.9 cm (1.5 - 2.6) LA Diam: 3.7 cm (2.7 - 3.8) MV EXCURSION: 17.007 mm (> 18.000) MV EF SLOPE: 109 mm/s (70 - 150) EPSS: 0.5 cm MV E Ad: 0.80 m/s MV DecT: 251 ms MV A Ad: 0.63 m/s MV E/A Ratio: 1.28 RAP: 5.00 mmHg RVSP: 8.72 mmHg FINDINGS -------- Sinus rhythm. This was a technically adequate study. The left ventricular size is normal. Left ventricular wall thickness is normal. Overall left vent ricular systolic function is normal with, an EF between 55 - 60 %. The right ventricle is normal in size. The left atrium is normal in size. The right atrium is normal in size. The aortic valve is trileaflet, and appears structurally normal. No aortic stenosis or regurgitation. There is trace mitral regurgitation. Trace tricuspid regurgitation present. The right ventricular systolic pressure, as measured by Dopp ler, is 8.72mmHg. Pulmonic valve appears structurally normal. The aortic root size is normal. Normal inferior vena cava with normal inspiratory collapse consistent with estimated right atrial pre ssure of 5 mmHg. The pericardium is normal. CONCLUSIONS -------- 1. Sinus rhythm. 2. This was a technically adequate study. 3. The left ventricular size is normal. 4. Left ventricular wall thickness is normal. 5. Overall left ventricular systolic function is normal with, an EF between 55 - 60 %. 6. The right ventricle is normal in size. 7. The left atrium is normal in size. 8. The right atrium is normal in size. 9. The aortic valve is trileaflet, and appears structurally normal. No aortic stenosis or regurgitati on. 10. There is trace mitral regurgitation. 11. Trace tricuspid regurgitation present. 12. The right ventricular systolic pressure, as measured by Doppler, is 8.72mmHg. 13. Pulmonic valve appears structurally normal. 14. The aortic root size is normal. 15. Normal inferior vena cava with normal inspiratory collapse consistent with estimated right atrial pressure of 5 mmHg. 16. The pericardium is normal. PMP PROJECT MANAGER: Frieda Powers RDCS
--- NOTE | 2018-09-12 11:25 | P.DS ---
Providers Date of admission: 09/11/18 16:43 Expected date of discharge: 09/12/18 Attending physician: Attila Kirkland MD Consults: 09/11/18 17:00 Consult Physician Urgent Consulting Provider: [facility] Consult Reason/Comments: Chest Pain Do you want consulting provider notified?: Yes Primary care physician: Rosa Stewart - Discharge Diagnosis(es) (1) Sinus tachycardia Current Visit: Yes Status: Acute (2) Depression Current Visit: Yes Status: Acute (3) Cervical disc herniation Current Visit: Yes Status: Acute (4) Atypical chest pain Current Visit: Yes Status: Acute Hospital Course: 43-year-old female with PMH of depression, cervical disc herniation and tachycardia presents to the ED for chest pain. Patient reports experiencing chest pain that started around 11 AM as she was watching TV. Patient states that the chest pain is located directly under her left breast. Pain is 7 out of 10 in severity and occasionally radiates to the back. Patient reports that the pain is always aching, but has periods of sharp and stabbing episodes. Patient states that her chest pain is associated with sweating, left shoulder tingling and nausea. patient reports the pain to be worsened with cough and with deep inspiration. Of note, patient reports suffering from a cough for the past 2 weeks. Her cough is productive of yellow sputum, associated with rhinorrhea and nasal congestion. Patient reported going to her PCP, took a 3 day course of antibiotics. This did not resolve her infection, and she was then prescribed a 10 day course of antibiotics with a chest x ray. chest x-ray revealed no pneumonia but did show a pleural nodule for which she has the CT chest scheduled in the outpatient setting. Patient reports measuring a maximum temperature of 99.5F. She denies any headache, lower extremity edema, vomiting, palpitations, changes in urination or bowel habits. No changes in appetite or weight. In the ED, CBC and BMP was unremarkable except for a glucose of 156. Initial troponin was less than 0.012. D-dimer was 0.23, CTA of the chest was negative for PE. Vital signs were within normal limits except for a heart rate of 110. Chest x-ray was within normal limits. Patient is admitted for chest pain, rule out acute coronary syndrome. Cardiology is on consult. Troponin was less than 0.0123, EKG showing normal sinus rhythm. Cardiology was consulted and recommended stress test. Stress echo was negative. Patient was cleared for discharge from cardiology perspective. Patient seen and examined prior to discharge. No acute events overnight. Patient course resolution of her chest pain. No more shortness of breath or palpitations. She is looking for to going home. General: [non toxic], [no distress], [appears at stated age] Derm: [warm], [dry] Head: [atraumatic], [normocephalic], [symmetric] Eyes: [EOMI], [no lid lag], [anicteric sclera] Mouth: [no lip lesion], [mucus membranes moist] Cardiovascular: [sinus tachycardia], [no murmur], [positive DP pulse bilateral] Lungs: [CTA bilateral], [no rhonchi, no rales] , [no accessory muscle use] Abdominal: [soft], [ nontender to palpation], [no guarding], [no appreciable organomegaly] Ext: [no gross muscle atrophy], [no edema], [no contractures] Neuro: [no focal neuro deficits] Psych: [Alert], [oriented], [appropriate affect] Assessment and Plan 1. Chest pain: Appears non cardiac, pleuritic in nature (pleuritis?). Patient is afebrile with no leukocytosis. Plans to r/o ACS. D-Dimer 0.23, CTA negative to PE. Troponin < 0.012 x 3, EKG showing sinus tachycardia. CXR is negative. Pain management with Tylenol, Nitrostat PRN and Morphine 2 mg IV Q4H PRN for breakthrough. Start ASA 325 mg PO QD. Telemetry monitoring. Stress test negative. Cardiology consulted, cleared for discharge. 2. Sinus tachycardia: Possibly due to pain? Patient reports a long history with no identifiable cause by her PCP. Continue Metoprolol 100 mg PO BID. Telemetry monitoring. FU Cardiology consult. 3. Depression: Stable. Continue Trintellix 10 mg PO QD. 4. C6/C7 disk herniation: Stable. Continue Lyrica 200 mg PO BID. 5. DVT Prophylaxis: Low risk, SCD boots only. Pertinent Studies: Stress echo Chest x-ray Patient Condition at Discharge: Stable Plan - Discharge Summary Discharge Rx Participant: No New Discharge Prescriptions: Continue Vortioxetine Hydrobromide [Trintellix] 10 mg PO DAILY Pregabalin [Lyrica] 200 mg PO BID Eszopiclone 3 mg PO HS Butalb/APAP/Caff 50-325-40Mg [Fioricet 50-325-40] 1 tab PO Q4H PRN PRN Reason: Migraine Headache Metoprolol Succinate (ER) [Toprol XL] 100 mg PO BID Discontinued Ibuprofen [Advil] 800 mg PO Q8HR PRN PRN Reason: Pain Discharge Medication List Butalb/APAP/Caff 50-325-40Mg [Fioricet 50-325-40] 1 tab PO Q4H PRN 05/07/18 [ History] Eszopiclone 3 mg PO HS 05/07/18 [History] Metoprolol Succinate (ER) [Toprol XL] 100 mg PO BID 05/07/18 [History] Pregabalin [Lyrica] 200 mg PO BID 05/07/18 [History] Vortioxetine Hydrobromide [Trintellix] 10 mg PO DAILY 05/07/18 [History] Follow up Appointment(s)/Referral(s): Rosa Stewart MD [Primary Care Provider] - 1-2 days Activity/Diet/Wound Care/Special Instructions: Diet: Regular Please follow-up with your primary care provider within 1-2 days of discharge. Discharge Disposition: HOME SELF-CARE
[2018-09-12 11:36] LABS: Hemoglobin A1C 5.3 % (4.0-6.0)
--- NOTE | 2018-09-21 09:48 | ECHOS ---
Stress Test Results/Findings: Exam Performed: stress echo exercise with con Exam Date: 09/12/18 Reason for Exam: Chest Pain Height: 5 ft 5 in Weight: 117.1 kg Protocol: Sress Echo Stage: 2 Duration of Exercise: 7:26 Resting Heart Rate: 72 Resting Blood Pressure: 114/72 Maximum Achieved Heart Rate: 149 Maximum Achieved Blood Pressure: 215/88 85% PMHR: 149 100% PMHR: 175 METS: 8.5 Technologist Comment: Stress Test Results/Findings: This is a 43-year-old female was admitted to the hospital chest pain. Appear to be atypical. Patient also has history of hypertension. Stress data: Baseline EKG showed a sinus rhythm with normal DC interval, QRS duration. Blood pressure at rest is 114/72 with pulse rate of 72. Patient walked on the Marshall protocol for 7 minutes and 26 seconds achieving a maximal rate of 147 with a blood pressure 189/60. EKGs taken during and after the exercise did not reveal any significant changes from the baseline. Patient did not experience any chest pain. Echo data: Baseline echo images showed normal wall motion and thickening. Exercise echo images showed augmentation of wall motion and thickening in all the segments. Final impression: #1. Negative stress test #2. Negative stress echo. DENISE
== END 2018-09-12 11:52 | disposition home or self-care (01) ==
LOC: EC 14:14 → 3SCARD 16:43 → 1SOBS 09-12 01:59
PROVIDERS: ADMIT Family Medicine; ATTEND Family Medicine
DX: R07.89 Other chest pain (principal); F32.9 Major depressive disorder, single episode, unspecified; R00.0 Tachycardia, unspecified; M50.223 Other cervical disc displacement at C6-C7 level; F41.9 Anxiety disorder, unspecified; R05 Cough; I10 Essential (primary) hypertension; Z87.442 Personal history of urinary calculi; Z90.710 Acquired absence of both cervix and uterus; Z90.49 Acquired absence of other specified parts of digestive tract; Z79.899 Other long term (current) drug therapy; Z88.8 Allergy status to other drugs, medicaments and biological substances
CPT/HCPCS: 96376; 96361; 96374; 96375; 99285; 36415; 93005; 93306; 93351; 85379; 80061; 80053; 82150; 82550 ×2; 82553 ×2; 83690; 83735; 84484 ×2; 85025; 85610; 85730; 83036; 71046; 71275; G0378 ×2; J2270 ×2; J2405; Q9950; Q9967

== ENCOUNTER → 2018-12-26 | Outpatient (CLI) | payer MEDICAID ==
--- NOTE | 2018-12-26 22:38 | MR ---
EXAMINATION TYPE: MR brain wo con DATE OF EXAM: 12/26/2018 COMPARISON: NONE HISTORY: headache unusual duration TECHNIQUE: Multiplanar, multisequence imaging of the brain and brainstem is performed without IV cont rast. FINDINGS: Diffusion weighted images demonstrate no evidence of a recent infarct or other diffusion abnormality. There is no worrisome extra-axial fluid collection. The ventricular system and cisternal spaces are normal in size and appearance. The brain volume is age appropriate. There are 2-3 scattered T2 hyper intense lesions including a 3 mm posterior right frontal lesion at level of alvarado radiata. Lesions a re nonspecific in appearance and distribution. Midline structures demonstrate normal morphology. The craniocervical junction appears within normal limits. Normal vascular flow voids are present. The visualized sinuses are clear and the globes are i ntact. IMPRESSION: Minimal nonspecific white matter changes may be on basis of altered vascular blood flow r elated to product of migraine headaches.
--- NOTE | 2018-12-26 22:42 | MR ---
EXAMINATION TYPE: MR lumbar spine wo con DATE OF EXAM: 12/26/2018 COMPARISON: NONE HISTORY: Lumbago per order. Low back pain for 6 months per patient. TECHNIQUE: Multiplanar, multisequence imaging of the lumbar spine is performed without IV contrast. FINDINGS: Sagittal images of the lumbar spine show vertebral body heights and alignment to appear sat isfactory. There is disc desiccation with mild disc space narrowing L3-L4 through the L5-S1 levels. P osterior disc herniations are seen on sagittal images at L4-L5 and L5-S1 levels. Annular tear noted p osteriorly at L3-L4 level. The conus medullaris is normal in position and signal ending superior L1 l evel. Two hemangiomas are present at the L2 vertebra sagittal image 7. Axial images show the T12-L1, L1-L2, L2-L3, and L3-L4 levels all to appear within normal limits. Axial images at the L4-L5 level show mild facet degenerative changes with mild broad disc bulge mildl y effacing the anterior thecal sac on axial image 11. There is mild bilateral inferior neural foramin al narrowing. Axial images at the L5-S1 level mild facet degenerative changes bilaterally with [id number] bro ad disc bulge. Spinal canal is preserved. There is prominence of epidural fat at this level. There is moderate right and mild left-sided inferior neural foraminal narrowing, encroachment on right L5 ner ve is difficult to exclude sagittal image 11 and axial image 4. Extrarenal pelvis on the right is suspected as there is prominence of renal pelvis without calyceal d ilatation IMPRESSION: Multilevel degenerative changes mid to lower lumbar spine with suggestion of right L5 enc roachment due to disc herniation. Further details as discussed above.
== END | disposition home or self-care (01) ==
LOC: RADMRIMAIN 14:37
PROVIDERS: ATTEND Psychiatry & Neurology Pain Medicine
DX: M48.07 Spinal stenosis, lumbosacral region (principal); M51.27 Other intervertebral disc displacement, lumbosacral region; D18.09 Hemangioma of other sites; M47.816 Spondylosis without myelopathy or radiculopathy, lumbar region; R90.89 Other abnormal findings on diagnostic imaging of central nervous system; R51 Headache
CPT/HCPCS: 70551; 72148

== ENCOUNTER → 2019-10-28 | Outpatient (CLI) | payer MEDICAID | END | disposition home or self-care (01) | LOC: LABWHC1 09:18 | PROVIDERS: ATTEND Otolaryngology | DX: Z01.82 Encounter for allergy testing (principal) | CPT/HCPCS: 36415 ==

== ENCOUNTER 2020-04-21 20:20 | Emergency (ER) | payer MEDICAID ==
[2020-04-21 20:33] VITALS: TEMP 98.2
[2020-04-21] MEDS ORDERED: ONDANSETRON 4 MG/2 ML VIAL IVP STA (20:51)
[2020-04-21] MEDS ORDERED: SODIUM CHLORIDE 0.9% 1,000 ML IV STA (20:51)
[2020-04-21] MEDS ORDERED: KETOROLAC 30 MG/ML 1 ML VIAL IVP STA (20:51)
[2020-04-21 21:17] LABS: Basophils # (A) 0.1 k/uL (0-0.2); Basophils % (A) 1 %; Eosinophils # (A) 0.2 k/uL (0-0.7); Eosinophils % (A) 1 %; HCT 40.3 % (34.0-46.0); Lymphocytes # (A) 1.9 k/uL (1.0-4.8); Lymphocytes % (A) 18 %; MCH 27.8 pg (25.0-35.0); MCHC 32.2 g/dL (31.0-37.0); MCV 86.4 fL (80.0-100.0); Mean Platelet Volume 7.7; Monocytes # (A) 0.4 k/uL (0-1.0); Monocytes % (A) 4 %; Neutrophils % (A) 75 %; Platelet Count 283 k/uL (150-450); RBC 4.66 m/uL (3.80-5.40); RDW 13.3 % (11.5-15.5); WBC 10.7 k/uL (3.8-10.6)
[2020-04-21 21:24] LABS: ALT 26 U/L (4-34); AST 26 U/L (14-36); African American GFR (CKD) >90 (>60 ml/min/1.73 sqM); Albumin 4.4 g/dL (3.5-5.0); Alkaline Phosphatase 117 U/L (38-126); Amylase 75 U/L (30-110); Anion Gap 10 mmol/L; Blood Urea Nitrogen 15 mg/dL (7-17); Calcium 9.4 mg/dL (8.4-10.2); Carbon Dioxide 23 mmol/L (22-30); Chloride 106 mmol/L (98-107); Glucose 150 mg/dL (74-99); Non-African American GFR(CKD) >90 (>60 ml/min/1.73 sqM); Potassium 4.5 mmol/L (3.5-5.1); Sodium 139 mmol/L (137-145); Total Bilirubin 0.3 mg/dL (0.2-1.3); Total Protein 6.9 g/dL (6.3-8.2)
--- NOTE | 2020-04-21 22:05 | CT ---
EXAMINATION TYPE: CT abdomen pelvis wo con DATE OF EXAM: 04/21/2020 COMPARISON: None HISTORY: Left Flank Pain CT DLP: 1834.90 mGycm Automated exposure control for dose reduction was used. Multiple axial sections were obtained from the diaphragm to the floor the pelvis with no contrast. The lung bases are clear. There is no pleural effusion. Heart size is normal. There is no pericardial effusion. There is gastric sleeve noted. Liver spleen pancreas stomach appear intact. There is small hiatal hernia. The bile ducts are not dilated. There are clips from cholecystectomy. There is no adrenal mass. Kidneys have normal size and contour. There is some fullness of the left re nal pelvis. There are multiple bilateral renal calculi that measure up to 4 mm. There is 5 mm obstruc ting calculus at the left ureteropelvic junction. There is no retroperitoneal adenopathy. Ureters are not dilated. Bladder is almost empty. There is no inguinal hernia. There is no free fluid in the pelvis. There is no evidence of pelvic mass. There is apparent hysterec leah. Lumbar vertebra have normal spacing and alignment. Posterior elements are intact. There is no c ompression fracture. Bony pelvis is intact. There is no mesenteric edema. There is no ascites or free air. There is no bowel obstruction. Appendi x is posterior and appears normal. IMPRESSION: Multiple bilateral renal calculi. Obstructing calculus at the left ureteropelvic junction with left-s ided hydronephrosis. Normal appendix.
[2020-04-21] MEDS ORDERED: METOCLOPRAMIDE 5 MG/ML 2 ML VIAL IVP STA (22:07)
[2020-04-21] MEDS ORDERED: HYDROmorphone 0.5 MG/0.5 ML SYRINGE IVP STA ×2 (22:07→22:09)
--- NOTE | 2020-04-21 22:08 | ED ---
General Adult HPI - General Chief complaint: Abdominal Pain Stated complaint: Poss Kidney Stone Time Seen by Provider: 04/21/20 20:44 Source: patient, RN notes reviewed Mode of arrival: ambulatory - History of Present Illness Initial comments: 45-year-old female with a past medical history of hypertension, kidney stones presents to the emergency room for a chief complaint of left-sided low back and flank pain. Patient states this started this afternoon. Patient states it fe els like a previous kidney stone. Patient denies fevers or chills. Denies abdominal pain. Patient does admit to nausea vomiting associated with this.Patient has no other complaints at this time including shortness of breath, chest pain, headache, or visual changes. - Related Data Home Medications Medication Instructions Recorded Confirmed Butalb/APAP/Caff 50-325-40Mg 1 tab PO Q4H PRN 05/07/18 09/11/18 [Fioricet 50-325-40] Eszopiclone 3 mg PO HS 05/07/18 09/11/18 Metoprolol Succinate (ER) [Toprol 100 mg PO BID 05/07/18 09/11/18 XL] Pregabalin [Lyrica] 200 mg PO BID 05/07/18 09/11/18 Vortioxetine Hydrobromide 10 mg PO DAILY 05/07/18 09/11/18 [Trintellix] Previous Rx's Medication Instructions Recorded HYDROcodone/APAP 5-325MG [[place] 1 tab PO Q6HR PRN #10 tab 04/21/20 5-325] Ibuprofen [Motrin] 600 mg PO Q6HR PRN #20 tab 04/21/20 Ondansetron [Zofran ODT] 4 mg PO Q8HR PRN #15 tab 04/21/20 Tamsulosin [Flomax] 0.4 mg PO DAILY #14 cap 04/21/20 Allergies Allergy/AdvReac Type Severity Reaction Status Date / Time bupropion [From Wellbutrin] Allergy Hallucinati Verified 04/21/20 20:32 ons fluoxetine [From Prozac] Allergy Hallucinati Verified 04/21/20 20:32 ons venlafaxine [From Effexor] Allergy Hallucinati Verified 04/21/20 20:32 ons SAI Inhibitors AdvReac ANGIOEDEMA Verified 04/21/20 20:32 Review of Systems ROS Statement: Those systems with pertinent positive or pertinent negative responses have been documented in the HPI. ROS Other: All systems not noted in ROS Statement are negative. Past Medical History Past Medical History: Hypertension Additional Past Medical History / Comment(s): kidney stones History of Any Multi-Drug Resistant Organisms: None Reported Past Surgical History: Bariatric Surgery, Section, Cholecystectomy, Hysterectomy, Orthopedic Surgery Additional Past Surgical History / Comment(s): Left knee replacement Past Psychological History: Anxiety, Depression Smoking Status: Never smoker Past Alcohol Use History: None Reported Past Drug Use History: None Reported General Exam General appearance: alert, in no apparent distress Head exam: Present: atraumatic, normocephalic, normal inspection Eye exam: Present: normal appearance, PERRL, EOMI. Absent: scleral icterus, conjunctival injection, periorbital swelling ENT exam: Present: normal exam, mucous membranes moist Neck exam: Present: normal inspection, full ROM. Absent: tenderness, meningismus, lymphadenopathy Respiratory exam: Present: normal lung sounds bilaterally. Absent: respiratory distress, wheezes, rales, rhonchi, stridor Cardiovascular Exam: Present: regular rate, normal rhythm, normal heart sounds. Absent: systolic murmur, diastolic murmur, rubs, gallop, clicks GI/Abdominal exam: Present: soft, normal bowel sounds. Absent: distended, tenderness (no significant abdominal tenderness), guarding, rebound, rigid Back exam: Present: CVA tenderness (L) Course Vital Signs 04/21/20 04/21/20 20:29 22:23 Temperature 98.2 F Pulse Rate 86 104 H Respiratory 17 18 Rate Blood Pressure 190/102 156/81 O2 Sat by Pulse 97 96 Oximetry Medical Decision Making - Medical Decision Making Vitals are stable. HPI and physical exam as documented. CBC CMP unremarkable. Urinalysis shows 182 red blood cells which is consistent with kidney stone finding. CT abdomen and pelvis without contrast shows multiple bilateral renal calculi with an obstructing calculus at the left UPJ with left-sided hydronephrosis. This is measuring 5 mm. X-ray was ordered for urology. Patient's pain was much improved and she was in much better upon discharge. She was prescribed antiemetics and pain medication. Patient is a patient of Dr. Decker and will follow-up with him. She will return here for any worsening symptoms. I did discuss returning if pain is intolerable or she is not able to tolerate oral intake. - Lab Data Result diagrams: 04/21/20 20:59 04/21/20 20:59 Lab Results 04/21/20 04/21/20 04/21/20 Range/Units 20:59 20:59 21:03 WBC 10.7 H (3.8-10.6) k/uL RBC 4.66 (3.80-5.40) m/uL Hgb 13.0 (11.4-16.0) gm/dL Hct 40.3 (34.0-46.0) % MCV 86.4 (80.0-100.0) fL MCH 27.8 (25.0-35.0) pg MCHC 32.2 (31.0-37.0) g/dL RDW 13.3 (11.5-15.5) % Plt Count 283 (150-450) k/uL Neutrophils % 75 % Lymphocytes % 18 % Monocytes % 4 % Eosinophils % 1 % Basophils % 1 % Neutrophils # 8.0 H (1.3-7.7) k/uL Lymphocytes # 1.9 (1.0-4.8) k/uL Monocytes # 0.4 (0-1.0) k/uL Eosinophils # 0.2 (0-0.7) k/uL Basophils # 0.1 (0-0.2) k/uL Sodium 139 (137-145) mmol/L Potassium 4.5 (3.5-5.1) mmol/L Chloride 106 (98-107) mmol/L Carbon Dioxide 23 (22-30) mmol/L Anion Gap 10 mmol/L BUN 15 (7-17) mg/dL Creatinine 0.70 (0.52-1.04) mg/dL Est GFR (CKD-EPI)AfAm >90 (>60 ml/min/1.73 sqM) Est GFR (CKD-EPI)NonAf >90 (>60 ml/min/1.73 sqM) Glucose 150 H (74-99) mg/dL Calcium 9.4 (8.4-10.2) mg/dL Total Bilirubin 0.3 (0.2-1.3) mg/dL AST 26 (14-36) U/L ALT 26 (4-34) U/L Alkaline Phosphatase 117 (38-126) U/L Total Protein 6.9 (6.3-8.2) g/dL Albumin 4.4 (3.5-5.0) g/dL Amylase 75 (30-110) U/L Lipase 132 (23-300) U/L Urine Color Yellow Urine Appearance Cloudy H (Clear) Urine pH 5.5 (5.0-8.0) Ur Specific [place] 1.025 (1.001-1.035) Urine Protein 1+ H (Negative) Urine Glucose (UA) Negative (Negative) Urine Ketones Trace H (Negative) Urine Blood Large H (Negative) Urine Nitrite Negative (Negative) Urine Bilirubin Negative (Negative) Urine Urobilinogen 2.0 (<2.0) mg/dL Ur Leukocyte Esterase Negative (Negative) Urine RBC >182 H (0-5) /hpf Urine WBC 4 (0-5) /hpf Ur Squamous Epith Cells 6 H (0-4) /hpf Calcium Oxalate Crystal Rare H (None) /hpf Urine Bacteria Rare H (None) /hpf Hyaline Casts 6 H (0-2) /lpf Urine Mucus Many H (None) /hpf Disposition Clinical Impression: Kidney stone Disposition: HOME SELF-CARE Condition: Good Instructions (If sedation given, give patient instructions): Kidney Stones (ED) Additional Instructions: please take medications as directed. Do not drive or operate machinery while taking Simpson. Follow-up with urology by calling tomorrow for an appointment. If pain is intolerable at home with medication given or you are unable to t olerate oral intake because of nausea return here to the emergency room. Prescriptions: Tamsulosin [Flomax] 0.4 mg PO DAILY #14 cap Ibuprofen [Motrin] 600 mg PO Q6HR PRN #20 tab PRN Reason: Pain HYDROcodone/APAP 5-325MG [[place] 5-325] 1 tab PO Q6HR PRN #10 tab PRN Reason: Pain Ondansetron [Zofran ODT] 4 mg PO Q8HR PRN #15 tab PRN Reason: Nausea Is patient prescribed a controlled substance at d/c from ED?: Yes When asked, does pt state using other controlled substances?: No If prescribed controlled substance>3 days was MAPS reviewed?: Prescribed <3 Days If opioid is for acute pain is fill amount 7 days or less?: Yes If Rx opioid, was Start Talking consent form obtained?: Yes Referrals: Rosa Stewart MD [Primary Care Provider] - 1-2 days Time of Disposition: 22:39
[2020-04-21 22:17] LABS: Appearance,Urine Cloudy (Clear); Bacteria,Urine Rare /hpf; Bilirubin,Urine Negative (Negative); Blood,Urine Large (Negative); Calcium Oxalate Crystals,Urine Rare /hpf; Color,Urine Yellow; Glucose,Urine (UA) Negative (Negative); Hyaline Casts,Urine 6 /lpf (0-2); Ketones,Urine Trace (Negative); Leukocyte Esterase,Urine Negative (Negative); Mucus,Urine Many /hpf; Nitrite,Urine Negative (Negative); PH, Urine 5.5 (5.0-8.0); Protein,Urine 1+ (Negative); RBC,Urine >182 /hpf (0-5); Specific Gravity,Urine 1.025 (1.001-1.035); Squamous Epithelial Cell,Urine 6 /hpf (0-4); WBC,Urine 4 /hpf (0-5)
[2020-04-21 22:24] VITALS: BP 156/81; RESP 18
[2020-04-21] MEDS ORDERED: ACET/COD 300 MG/30 MG STARTER PACK 6 TAB BTL PO STA (22:41)
[2020-04-21 22:56] VITALS: PULSE 97
--- NOTE | 2020-04-21 22:57 | XR ---
EXAMINATION TYPE: XR KUB portable DATE OF EXAM: 04/21/2020 COMPARISON: 05/07/2018 HISTORY: Left flank pain TECHNIQUE: 2 views supine FINDINGS: There is no sign of intestinal obstruction or pneumoperitoneum. Fecal pattern is normal. Th ere is no evidence of a mass. There is gastric sleeve noted. There are clips from cholecystectomy. Th ere is 5 mm calcification over the proximal left ureter also demonstrated on the CT scan today. Fecal pattern is normal. There is no evidence of a mass. IMPRESSION: Nonacute abdomen. Proximal left ureteral calculus demonstrated.
== END 2020-04-21 22:57 | disposition home or self-care (01) ==
LOC: EC 20:20
DX: N13.2 Hydronephrosis with renal and ureteral calculous obstruction (principal); I10 Essential (primary) hypertension; F41.9 Anxiety disorder, unspecified; F32.9 Major depressive disorder, single episode, unspecified; Z79.899 Other long term (current) drug therapy; Z88.8 Allergy status to other drugs, medicaments and biological substances; Z96.652 Presence of left artificial knee joint; Z90.49 Acquired absence of other specified parts of digestive tract; Z98.84 Bariatric surgery status
CPT/HCPCS: 36415; 80053; 82150; 83690; 85025; 81001; 74018; 74176; 99284; 96374; 96375 ×3; 96361 ×2; J2765; J2405; J1885; J1170

== ENCOUNTER 2020-04-24 21:32 | Emergency (ER) | payer MEDICAID ==
[2020-04-24] MEDS ORDERED: SODIUM CHLORIDE 0.9% 1,000 ML IV STA (22:14)
[2020-04-24] MEDS ORDERED: MORPHINE SULFATE 4 MG/ML SYRINGE IV STA (22:28)
[2020-04-24 22:39] LABS: Appearance,Urine Cloudy (Clear); Bilirubin,Urine Negative (Negative); Blood,Urine Large (Negative); Color,Urine Light Red; Glucose,Urine (UA) Negative (Negative); Ketones,Urine Negative (Negative); Leukocyte Esterase,Urine Negative (Negative); Mucus,Urine Occasional /hpf; Nitrite,Urine Negative (Negative); Protein,Urine 1+ (Negative); RBC,Urine >182 /hpf (0-5); Specific Gravity,Urine 1.031 (1.001-1.035); Squamous Epithelial Cell,Urine 2 /hpf (0-4); WBC,Urine 5 /hpf (0-5)
[2020-04-24 22:43] LABS: ALT 33 U/L (4-34); AST 36 U/L (14-36); African American GFR (CKD) >90 (>60 ml/min/1.73 sqM); Albumin 4.1 g/dL (3.5-5.0); Alkaline Phosphatase 89 U/L (38-126); Anion Gap 8 mmol/L; Basophils # (A) 0.1 k/uL (0-0.2); Basophils % (A) 1 %; Blood Urea Nitrogen 16 mg/dL (7-17); Calcium 9.4 mg/dL (8.4-10.2); Carbon Dioxide 24 mmol/L (22-30); Chloride 105 mmol/L (98-107); Eosinophils # (A) 0.2 k/uL (0-0.7); Eosinophils % (A) 3 %; Glucose 113 mg/dL (74-99); HCT 36.9 % (34.0-46.0); HGB 12.2 gm/dL (11.4-16.0); Lymphocytes # (A) 2.5 k/uL (1.0-4.8); Lymphocytes % (A) 34 %; MCH 28.4 pg (25.0-35.0); MCV 85.9 fL (80.0-100.0); Mean Platelet Volume 7.6; Monocytes # (A) 0.4 k/uL (0-1.0); Monocytes % (A) 5 %; Neutrophils # (A) 3.9 k/uL (1.3-7.7); Neutrophils % (A) 55 %; Non-African American GFR(CKD) >90 (>60 ml/min/1.73 sqM); Platelet Count 189 k/uL (150-450); Potassium 4.5 mmol/L (3.5-5.1); RDW 13.3 % (11.5-15.5); Sodium 137 mmol/L (137-145); Total Bilirubin 0.5 mg/dL (0.2-1.3); Total Protein 6.8 g/dL (6.3-8.2); WBC 7.1 k/uL (3.8-10.6)
--- NOTE | 2020-04-24 23:01 | XR ---
EXAMINATION TYPE: XR KUB DATE OF EXAM: 04/24/2020 COMPARISON: 04/21/2020 HISTORY: Left flank pain TECHNIQUE: 2 views upright FINDINGS: There is no sign of intestinal obstruction or pneumoperitoneum. There is gastric sleeve not ed. There is no evidence of a mass. There are clips from cholecystectomy. Lung bases are clear. There are no pathologic calcifications over the kidneys. IMPRESSION: Nonacute abdomen. No adverse change.
--- NOTE | 2020-04-24 23:37 | ED ---
General Adult HPI - General Chief complaint: Abdominal Pain Stated complaint: Poss Kidney Stones Time Seen by Provider: 04/24/20 21:40 Source: patient, RN notes reviewed, old records reviewed Mode of arrival: ambulatory Limitations: no limitations - History of Present Illness Initial comments: 45-year-old female patient with pertinent past medical history of a ureteral calculi and 04/21 presents ED chief complaint of left lower flank pain. Patient was that she was doing well however now she feels as if the kidney stone starting to move again she is having pain lower in her flank region. Patient reports that of nausea without emesis. She called her urologist who recommended that if her symptoms don't improve she comes to the ER for pain control. She denies any other acute complaints. Systemic: Pt denies fatigue, fever/chills, rash. Pt denies weakness, night sweats, weight loss. Neuro: Pt denies headache, visual disturbances, syncope or pre-syncope. HEENT: Pt denies ocular discharge or irritation, otalgia, rhinorrhea, pharyngitis or notable lymphadenopathy. Cardiopulmonary: Pt denies chest pain, SOB, heart palpitations, dyspnea on exertion. Abdominal/GI: Pt denies abdominal pain, n/v/d. : Pt denies dysuria, burning w/ urination, frequency/urgency. Denies new onset urinary or bowel incontinence. MSK: Pt denies myalgia, loss of strength or function in extremities. Neuro: Pt denies new onset weakness, paresthesias. - Related Data Home Medications Medication Instructions Recorded Confirmed Butalb/APAP/Caff 50-325-40Mg 1 tab PO Q4H PRN 05/07/18 04/21/20 [Fioricet 50-325-40] Metoprolol Succinate (ER) [Toprol 100 mg PO BID 05/07/18 04/21/20 XL] ARIPiprazole [Abilify] 5 mg PO HS 04/21/20 04/21/20 Cyclobenzaprine [Flexeril] 10 mg PO DAILY PRN 04/21/20 04/21/20 Erenumab-Aooe [Aimovig 140 mg INJ Q28D 04/21/20 04/21/20 Autoinjector] Pregabalin [Lyrica] 150 mg PO HS 04/21/20 04/21/20 Rimegepant Sulfate [Nurtec Odt] 75 mg PO Q48H PRN 04/21/20 04/21/20 Vortioxetine Hydrobromide 20 mg PO HS 04/21/20 04/21/20 [Trintellix] Zolpidem [Ambien] 10 mg PO HS 04/21/20 04/21/20 cloNIDine HCL [Catapres] 0.1 mg PO HS 04/21/20 04/21/20 Previous Rx's Medication Instructions Recorded HYDROcodone/APAP 5-325MG [[place] 1 tab PO Q6HR PRN #10 tab 04/21/20 5-325] Ibuprofen [Motrin] 600 mg PO Q6HR PRN #20 tab 04/21/20 Ondansetron [Zofran ODT] 4 mg PO Q8HR PRN #15 tab 04/21/20 Tamsulosin [Flomax] 0.4 mg PO DAILY #14 cap 04/21/20 Allergies Allergy/AdvReac Type Severity Reaction Status Date / Time bupropion [From Wellbutrin] Allergy Hallucinati Verified 04/24/20 21:37 ons fluoxetine [From Prozac] Allergy Hallucinati Verified 04/24/20 21:37 ons venlafaxine [From Effexor] Allergy Hallucinati Verified 04/24/20 21:37 ons SAI Inhibitors AdvReac ANGIOEDEMA Verified 04/24/20 21:37 Review of Systems ROS Statement: Those systems with pertinent positive or pertinent negative responses have been documented in the HPI. ROS Other: All systems not noted in ROS Statement are negative. Past Medical History Past Medical History: Hypertension Additional Past Medical History / Comment(s): kidney stones History of Any Multi-Drug Resistant Organisms: None Reported Past Surgical History: Bariatric Surgery, Section, Cholecystectomy, Hysterectomy, Orthopedic Surgery Additional Past Surgical History / Comment(s): Left knee replacement Past Psychological History: Anxiety, Depression Smoking Status: Never smoker Past Alcohol Use History: None Reported Past Drug Use History: None Reported General Exam - General Exam Comments Initial Comments: Constitutional: NAD, AOX3, Pt has pleasant affect. HEENT: NC/AT, trachea midline, neck supple, no lymphadenopathy. External ears appear normal, without discharge. Mucous membranes moist. Eyes PERRLA, EOM intact. There is no scleral icterus. No pallor noted. Cardiopulmonary: RRR, no murmurs, rubs or gallops, no JVD noted. Lungs CTAB in anterior and posterior [place]. No peripheral edema. Abdominal exam: Abdomen soft and non-distended. Abdomen non-tender to palpation in all 4 quadrants. Bowel sounds active in LLQ. No hepatosplenomegaly. No ecchymosis. Flanks nontender bilaterally. Neuro: CN II-XII grossly intact. No nuchal rigidity. No cervical spinal tenderness. MSK: Full active ROM in upper and lower extremities. Limitations: no limitations Course Vital Signs 04/24/20 04/24/20 04/24/20 21:33 22:50 23:00 Temperature 99.0 F Pulse Rate 107 H Respiratory 18 Rate Blood Pressure 174/107 140/88 O2 Sat by Pulse 98 96 95 Oximetry Medical Decision Making - Medical Decision Making 45-year-old female patient with pertinent past medical history of a ureteral calculi and 04/21 presents ED chief complaint of left lower flank pain. Patient was that she was doing well however now she feels as if the kidney stone sta rting to move again she is having pain lower in her flank region. Patient reports that of nausea without emesis. She called her urologist who recommended that if her symptoms don't improve she comes to the ER for pain control. She denies any other acute complaints. Patient vital signs are stable, afebrile. Physical exam did not display acute pathology. Laboratory investigations are unremarkable. KUB did not display any acute process. Patient pain is well- controlled and patient will be discharged with outpatient urology as well as primary care follow-up and will return to ER with any worsening symptoms. Case discussed with Dr. Godfrey. - Lab Data Result diagrams: 04/24/20 22:27 04/24/20 22:27 Lab Results 04/24/20 04/24/20 04/24/20 Range/Units 22:27 22:27 22:27 WBC 7.1 (3.8-10.6) k/uL RBC 4.30 (3.80-5.40) m/uL Hgb 12.2 (11.4-16.0) gm/dL Hct 36.9 (34.0-46.0) % MCV 85.9 (80.0-100.0) fL MCH 28.4 (25.0-35.0) pg MCHC 33.0 (31.0-37.0) g/dL RDW 13.3 (11.5-15.5) % Plt Count 189 (150-450) k/uL Neutrophils % 55 % Lymphocytes % 34 % Monocytes % 5 % Eosinophils % 3 % Basophils % 1 % Neutrophils # 3.9 (1.3-7.7) k/uL Lymphocytes # 2.5 (1.0-4.8) k/uL Monocytes # 0.4 (0-1.0) k/uL Eosinophils # 0.2 (0-0.7) k/uL Basophils # 0.1 (0-0.2) k/uL Sodium 137 (137-145) mmol/L Potassium 4.5 (3.5-5.1) mmol/L Chloride 105 (98-107) mmol/L Carbon Dioxide 24 (22-30) mmol/L Anion Gap 8 mmol/L BUN 16 (7-17) mg/dL Creatinine 0.67 (0.52-1.04) mg/dL Est GFR (CKD-EPI)AfAm >90 (>60 ml/min/1.73 sqM) Est GFR (CKD-EPI)NonAf >90 (>60 ml/min/1.73 sqM) Glucose 113 H (74-99) mg/dL Calcium 9.4 (8.4-10.2) mg/dL Total Bilirubin 0.5 (0.2-1.3) mg/dL AST 36 (14-36) U/L ALT 33 (4-34) U/L Alkaline Phosphatase 89 (38-126) U/L Total Protein 6.8 (6.3-8.2) g/dL Albumin 4.1 (3.5-5.0) g/dL Lipase 81 (23-300) U/L Urine Color Light Red Urine Appearance Cloudy H (Clear) Urine pH 6.0 (5.0-8.0) Ur Specific [place] 1.031 (1.001-1.035) Urine Protein 1+ H (Negative) Urine Glucose (UA) Negative (Negative) Urine Ketones Negative (Negative) Urine Blood Large H (Negative) Urine Nitrite Negative (Negative) Urine Bilirubin Negative (Negative) Urine Urobilinogen 2.0 (<2.0) mg/dL Ur Leukocyte Esterase Negative (Negative) Urine RBC >182 H (0-5) /hpf Urine WBC 5 (0-5) /hpf Ur Squamous Epith Cells 2 (0-4) /hpf Urine Mucus Occasional H (None) /hpf Disposition Clinical Impression: Flank pain, Kidney stone Disposition: HOME SELF-CARE Condition: Stable Instructions (If sedation given, give patient instructions): Kidney Stones (ED) Additional Instructions: Follow-up with primary care provider tomorrow as well as urologist tomorrow. Return to ER if any worsening symptoms. Is patient prescribed a controlled substance at d/c from ED?: No Referrals: Rosa Stewart MD [Primary Care Provider] - 1-2 days
[2020-04-24 23:53] VITALS: BP 116/67
[2020-04-25 00:01] VITALS: PULSE 74; RESP 16; TEMP 98.6
== END 2020-04-24 23:50 | disposition home or self-care (01) ==
LOC: EC 21:32
DX: N20.0 Calculus of kidney (principal); I10 Essential (primary) hypertension; F32.9 Major depressive disorder, single episode, unspecified; F41.9 Anxiety disorder, unspecified; Z79.899 Other long term (current) drug therapy; Z88.8 Allergy status to other drugs, medicaments and biological substances; Z90.49 Acquired absence of other specified parts of digestive tract; Z90.710 Acquired absence of both cervix and uterus; Z96.652 Presence of left artificial knee joint; Z98.84 Bariatric surgery status; Z87.442 Personal history of urinary calculi
CPT/HCPCS: 36415; 80053; 83690; 85025; 81001; 74018; 99284; 96374; 96361; J2270

== ENCOUNTER → 2020-05-15 | Outpatient (CLI) | payer MEDICAID ==
[2020-05-15 12:07] LABS: Basophils % (A) 1 %; Eosinophils # (A) 0.2 k/uL (0-0.7); Eosinophils % (A) 2 %; HCT 38.3 % (34.0-46.0); HGB 12.3 gm/dL (11.4-16.0); Lymphocytes # (A) 2.4 k/uL (1.0-4.8); Lymphocytes % (A) 28 %; MCH 27.7 pg (25.0-35.0); MCHC 32.2 g/dL (31.0-37.0); Mean Platelet Volume 7.6; Monocytes # (A) 0.4 k/uL (0-1.0); Monocytes % (A) 5 %; Neutrophils # (A) 5.4 k/uL (1.3-7.7); Neutrophils % (A) 63 %; Platelet Count 228 k/uL (150-450); RBC 4.45 m/uL (3.80-5.40); RDW 13.5 % (11.5-15.5); WBC 8.5 k/uL (3.8-10.6)
[2020-05-15 12:33] LABS: African American GFR (CKD) >90 (>60 ml/min/1.73 sqM); Anion Gap 8 mmol/L; Blood Urea Nitrogen 13 mg/dL (7-17); Carbon Dioxide 24 mmol/L (22-30); Chloride 106 mmol/L (98-107); Glucose 102 mg/dL (74-99); Non-African American GFR(CKD) >90 (>60 ml/min/1.73 sqM); Potassium 4.2 mmol/L (3.5-5.1); Sodium 138 mmol/L (137-145)
== END | disposition home or self-care (01) ==
LOC: LABPAT 10:37
PROVIDERS: ATTEND Urology
DX: Z01.818 Encounter for other preprocedural examination (principal); N20.1 Calculus of ureter
CPT/HCPCS: 36415; 80048; 85025

== ENCOUNTER → 2020-05-22 | Day surgery (SDC) | payer MEDICAID ==
[2020-05-20 10:40] VITALS: BMI 44.9
[~2020-05-22] MED LIST: DEXAMETHASONE SOD PHOSPHATE 10 MG/ML 1 ML VIAL IV ONE; GENTAMICIN 120 MG in SODIUM CHLORIDE 0.9% 100 ML IVPB ONE; HYDROmorphone 0.5 MG/0.5 ML SYRINGE IVP PRN; IOPAMIDOL-370 50ML BTL MISCELLANE ONE; KETOROLAC 15 MG/ML 1 ML VIAL ONE; LACTATED RINGERS 1,000 ML IV SCH; LIDOCAINE 1% (10MG/ML) FOR IV START INTRADERMA PRN; LIDOCAINE 1% INJ 10MG/ML (20 ML MDV) ONE; MIDAZOLAM 2 MG/2 ML VIAL ONE; ONDANSETRON 4 MG/2 ML VIAL IVP ONE; PROPOFOL 10 MG/ML 20 ML VIAL IV ONE; SCOPOLAMINE 1.5MG/72HR PATCH TRANSDERM ONE; SUCCINYLCHOLINE CHLORIDE 100 MG/5 ML SYR IV ONE; fentaNYL (PF) 50 MCG/ML 2 ML AMP ONE
--- NOTE | 2020-05-22 15:53 | XR ---
EXAMINATION TYPE: XR KUB DATE OF EXAM: 05/22/2020 3:47 PM CLINICAL HISTORY: Left-sided kidney stones. Lithotripsy pending. TECHNIQUE: Supine images of the abdomen and pelvis were obtained COMPARISON: CT abdomen pelvis 04/21/2020. FINDINGS: Incompletely visualized gastric and. Visualized bowel gas pattern is nonspecific. Degenerat ana rosa changes of the lumbosacral spine. The renal shadows are obscured due to overlying bowel contents. No definitive renal calculi. Reconstructed left pelvic phlebolith. IMPRESSION: No definitive renal calculi. Nonspecific bowel gas pattern.
--- NOTE | 2020-05-22 17:38 | P.HPIHPCON ---
History of Present Illness H&P Date: 05/22/20 Chief Complaint: left ureteral stone Ms gooden is a 45-year-old female with history of a 5 mm left UPJ stone. She failed medical expulsive therapy. Option of ureteroscopy and ESWL were discussed with her. She agreed to proceed with left-sided ureteroscopy. I discussed with her the risk which includes but not limited to bleeding, infection, and injury to the ureter. She understood all the risk and agreed to proceed Consent for Procedure: I have explained the operation/procedure to the patient, including the risks, benefits, side effects, alternative therapies (including not receiving the proposed treatment or service), the likelihood of the patient achieving his/her goals, and potential recuperation problems for the procedure/sedation/analgesia, as well as any blood products, if indicated. I also explained to the patient the risks, benefits and side effects of the alternatives, as well as the risks related to not receiving the proposed procedure, care, treatment, or services. Past Medical History Past Medical History: Asthma, GERD/Reflux, Hypertension Additional Past Medical History / Comment(s): kidney stones, MIGRAINE HEADACHES , SEIZURE ONCE FROM MEDICATION , History of Any Multi-Drug Resistant Organisms: None Reported Past Surgical History: Bariatric Surgery, Section, Cholecystectomy, Hysterectomy, Joint Replacement, Orthopedic Surgery Additional Past Surgical History / Comment(s): TOTAL Left knee replacement, LAP BAND SURGERY , FLUID WAS REMOIVED ,LEFT KNEE ARTHROSCOPIC SURGERY , RIGHT CARPAL TUNNEL RELEASE Past Anesthesia/Blood Transfusion Reactions: Postoperative Nausea & Vomiting (PONV) Smoking Status: Never smoker - Past Family History Mother Family Medical History: Cancer Additional Family Medical History / Comment(s): BREAST CANCER Medications and Allergies Home Medications Medication Instructions Recorded Confirmed Type Butalb/APAP/Caff 50-325-40Mg 1 tab PO Q4H PRN 05/07/18 05/22/20 History [Fioricet 50-325-40] Metoprolol Succinate (ER) [Toprol 100 mg PO BID 05/07/18 05/22/20 History XL] ARIPiprazole [Abilify] 5 mg PO HS 04/21/20 05/22/20 History Cyclobenzaprine [Flexeril] 10 mg PO HS PRN 04/21/20 05/22/20 History Erenumab-Aooe [Aimovig 140 mg INJ Q28D 04/21/20 05/22/20 History Autoinjector] HYDROcodone/APAP 5-325MG [[place] 1 tab PO Q6HR PRN #10 tab 04/21/20 05/22/20 Rx 5-325] Ibuprofen [Motrin] 600 mg PO Q6HR PRN #20 tab 04/21/20 05/22/20 Rx Ondansetron [Zofran ODT] 4 mg PO Q8HR PRN #15 tab 04/21/20 05/22/20 Rx Pregabalin [Lyrica] 150 mg PO HS 04/21/20 05/22/20 History Rimegepant Sulfate [Nurtec Odt] 75 mg PO Q48H PRN 04/21/20 05/22/20 History Vortioxetine Hydrobromide 20 mg PO HS 04/21/20 05/22/20 History [Trintellix] Zolpidem [Ambien] 10 mg PO HS 04/21/20 05/22/20 History cloNIDine HCL [Catapres] 0.1 mg PO HS 04/21/20 05/22/20 History Allergies Allergy/AdvReac Type Severity Reaction Status Date / Time bupropion [From Wellbutrin] Allergy Hallucinati Verified 05/22/20 16:00 ons fluoxetine [From Prozac] Allergy Hallucinati Verified 05/22/20 16:00 ons venlafaxine [From Effexor] Allergy Hallucinati Verified 05/22/20 16:00 ons SAI Inhibitors AdvReac ANGIOEDEMA Verified 05/22/20 16:00 Surgical - Exam Vital Signs Temp Pulse Resp BP Pulse Ox 97.8 F 85 16 145/85 97 05/22/20 16:14 05/22/20 16:14 05/22/20 16:14 05/22/20 16:14 05/22/20 16:14 - General well developed, no distress - Respiratory normal expansion, normal respiratory effort - Abdomen Abdomen: soft, non tender Assessment and Plan Assessment: 45 yo female with left sided ureteral stone -OR for left sided ureteroscopy with holmium laser
--- NOTE | 2020-05-22 18:53 | P.OP ---
Date of Procedure: 05/22/20 Preoperative Diagnosis: Left ureteral stone Postoperative Diagnosis: Left renal stone Procedure(s) Performed: Cystoscopy, left retrograde pyelogram, ureteroscopy, holmium laser lithotripsy, stone basketing Implants: None Anesthesia: NEVILLEA Surgeon: Davin Marcelo Estimated Blood Loss (ml): 5 Pathology: other (Left renal stone) Condition: stable Disposition: PACU Indications for Procedure: Ms gooden is a 45-year-old female with history of a 5 mm left UPJ stone. She failed medical expulsive therapy. Option of ureteroscopy and ESWL were discussed with her. She agreed to proceed with left-sided ureteroscopy. I discussed with her the risk which includes but not limited to bleeding, infection, and injury to the ureter. She understood all the risk and agreed to proceed Operative Findings: Multiple stones within the left kidney Description of Procedure: Patient was brought to the operating room, general anesthesia was induced. She was prepped and draped so fashion was in a dorsal lithotomy position. Cystoscopy fitted with a 21 sheath was inserted per urethra, cystoscopy was performed showed no abnormality within the bladder. Attention was then carried to the left ureteral orifice which appeared to be dilated but no stones were seen protruding from it. At this time cystoscope was withdrawn and a semirigid ureteroscope was was inserted. ureteroscope was advanced up the left ureteral o rifice all the way up to the UPJ not stone was encountered in the ureter. Pullback ureteroscopy was performed showed no injury to the ureter or any ureteral stone. Next a sensor wire was advanced through the ureteroscope and the ureteroscope was withdrawn with the wire in place. Next a flexible ureteroscope was passed over the wire, and into the renal pelvis. Renoscopy was performed showed multiple stones throughout the kidney. The stones were dusted. one of the small fragment was removed and sent for chemical analysis. Repeat renoscopy showed no sizable fragments or any additional stones. Pullback ureteroscopy was performed which showed no injury to the ureter. The bladder was emptied and then the case. Patient tolerated the procedure well taken to PACU in stable condition
[2020-05-22 19:04] VITALS: TEMP 96.8
[2020-05-22 19:45] VITALS: RESP 17
[2020-05-22 19:51] VITALS: BP 138/89; PULSE 90
--- NOTE | 2020-05-24 11:57 | FL ---
EXAMINATION TYPE: FL urography retrograde DATE OF EXAM: 05/22/2020 FLUOROSCOPY Fluoroscopy time of 10 seconds was used during left ureteral stone intervention. 1 image/s document/ s the procedure.
== END ==
LOC: OR 15:32
PROVIDERS: ATTEND Urology
DX: N20.0 Calculus of kidney (principal); J45.909 Unspecified asthma, uncomplicated; K21.9 Gastro-esophageal reflux disease without esophagitis; I10 Essential (primary) hypertension; G43.909 Migraine, unspecified, not intractable, without status migrainosus; K08.89 Other specified disorders of teeth and supporting structures; F41.9 Anxiety disorder, unspecified; F32.9 Major depressive disorder, single episode, unspecified; Z88.8 Allergy status to other drugs, medicaments and biological substances; Z87.442 Personal history of urinary calculi; Z86.69 Personal history of other diseases of the nervous system and sense organs; Z98.84 Bariatric surgery status; Z98.890 Other specified postprocedural states; Z90.49 Acquired absence of other specified parts of digestive tract; Z90.710 Acquired absence of both cervix and uterus; Z96.652 Presence of left artificial knee joint; Z91.89 Other specified personal risk factors, not elsewhere classified; Z79.899 Other long term (current) drug therapy; Z80.3 Family history of malignant neoplasm of breast
CPT/HCPCS: 82365; 74420; 74018; 52352; C1769 ×2; J2250; J1100; J0690; J2405; J2001; J3010; J1580; J1885; J0330; J2704; Q9967

== ENCOUNTER → 2020-06-17 | Outpatient (CLI) | payer MEDICAID | END | disposition home or self-care (01) | LOC: LABWHC1 11:02 | PROVIDERS: ATTEND Orthopaedic Surgery | DX: M12.9 Arthropathy, unspecified (principal) | CPT/HCPCS: 36415; 85652; 86140 ==

== ENCOUNTER → 2020-09-23 | Outpatient (CLI) | payer MEDICAID | END | disposition home or self-care (01) | LOC: LABWHC1 14:35 | PROVIDERS: ATTEND Family Medicine | DX: Z20.828 Contact with and (suspected) exposure to other viral communicable diseases (principal); M79.10 Myalgia, unspecified site; R05 Cough; R52 Pain, unspecified; R11.2 Nausea with vomiting, unspecified | CPT/HCPCS: 87502; U0003; C9803 ==

== ENCOUNTER 2021-03-10 09:42 | Emergency (ER) | payer MEDICAID ==
[2021-03-10 09:48] VITALS: TEMP 97.5
[2021-03-10 10:29] LABS: Basophils % (A) 0 %; Eosinophils # (A) 0.1 k/uL (0-0.7); Eosinophils % (A) 1 %; HGB 12.8 gm/dL (11.4-16.0); Lymphocytes # (A) 2.9 k/uL (1.0-4.8); Lymphocytes % (A) 30 %; MCH 27.7 pg (25.0-35.0); MCHC 33.6 g/dL (31.0-37.0); MCV 82.4 fL (80.0-100.0); Monocytes # (A) 0.5 k/uL (0-1.0); Monocytes % (A) 5 %; Neutrophils % (A) 62 %; Platelet Count 278 k/uL (150-450); RBC 4.61 m/uL (3.80-5.40); RDW 14.5 % (11.5-15.5); WBC 9.6 k/uL (3.8-10.6)
--- NOTE | 2021-03-10 10:31 | XR ---
EXAMINATION TYPE: XR chest 2V DATE OF EXAM: 03/10/2021 COMPARISON: 09/11/2018 INDICATION: Chest pain TECHNIQUE: Frontal and lateral views of the chest are obtained. FINDINGS: The heart size is normal. The pulmonary vasculature is normal. The lungs are clear. IMPRESSION: 1. No acute pulmonary process.
[2021-03-10 10:38] LABS: ALT 37 U/L (4-34); AST 23 U/L (14-36); African American GFR (CKD) >90 (>60 ml/min/1.73 sqM); Alkaline Phosphatase 111 U/L (38-126); Anion Gap 7 mmol/L; Blood Urea Nitrogen 12 mg/dL (7-17); Carbon Dioxide 24 mmol/L (22-30); Chloride 107 mmol/L (98-107); Creatine Kinase 43 U/L (30-135); Glucose 114 mg/dL (74-99); Magnesium 1.8 mg/dL (1.6-2.3); Non-African American GFR(CKD) >90 (>60 ml/min/1.73 sqM); Potassium 4.2 mmol/L (3.5-5.1); Sodium 138 mmol/L (137-145); Total Bilirubin 0.1 mg/dL (0.2-1.3); Total Protein 6.4 g/dL (6.3-8.2)
[2021-03-10 11:00] LABS: D-Dimer 0.52 mg/L FEU (<0.60); INR 0.9 (<1.2); Prothrombin Time 9.9 sec (9.0-12.0)
[2021-03-10 11:26] LABS: Partial Thromboplastin Time 21.5 sec (22.0-30.0)
[2021-03-10 11:29] VITALS: RESP 18
[2021-03-10] MEDS ORDERED: KETOROLAC 15 MG/ML 1 ML VIAL IVP STA (11:42)
--- NOTE | 2021-03-10 12:17 | US ---
EXAMINATION TYPE: US venous doppler duplex LE LT DATE OF EXAM: 03/10/2021 12:09 PM COMPARISON: NONE CLINICAL HISTORY: Left leg swelling and pain. SIDE PERFORMED: Left TECHNIQUE: The lower extremity deep venous system is examined utilizing real time linear array sonog ann marie with graded compression, doppler sonography and color-flow sonography. VESSELS IMAGED: Common Femoral Vein Deep Femoral Vein Greater Saphenous Vein * Femoral Vein Popliteal Vein Proximal Calf Veins (* superficial vessels) Left Leg: Negative for DVT IMPRESSION: No sonographic evidence for left lower extremity deep vein thrombosis.
--- NOTE | 2021-03-10 12:34 | ED ---
Chest Pain HPI - General Chief Complaint: Chest Pain Stated Complaint: chest pressure, shoulder pain Time Seen by Provider: 03/10/21 09:55 Source: patient, RN notes reviewed Mode of arrival: wheelchair Limitations: no limitations - History of Present Illness Initial Comments: This is a 45-year-old female who was sent in by her doctor for evaluation of c hest pain and left leg swelling. She states she had this would last several days the left leg is gotten better however chest pain is left-sided or the neck and shoulder area. He does seem he is somewhat worse with movement. No cough no fevers chills nausea vomiting sweats. She does work as a nurse and as low lifting. He does not remember any particular incident however that may have hurt this area of her body. MD Complaint: chest pain, other - Related Data Home Medications Medication Instructions Recorded Confirmed Metoprolol Succinate (ER) [Toprol 100 mg PO BID 05/07/18 03/10/21 XL] Cyclobenzaprine [Flexeril] 10 mg PO HS PRN 04/21/20 03/10/21 Erenumab-Aooe [Aimovig 140 mg INJ Q28D 04/21/20 03/10/21 Autoinjector] Pregabalin [Lyrica] 150 mg PO TID 04/21/20 03/10/21 Rimegepant Sulfate [Nurtec Odt] 75 mg PO Q48H PRN 04/21/20 03/10/21 Vortioxetine Hydrobromide 20 mg PO HS 04/21/20 03/10/21 [Trintellix] Zolpidem [Ambien] 10 mg PO HS 04/21/20 03/10/21 cloNIDine HCL [Catapres] 0.1 mg PO HS 04/21/20 03/10/21 ARIPiprazole [Abilify] 2 mg PO HS 03/10/21 03/10/21 Albuterol Inhaler [Ventolin Hfa 1 - 2 puff INHALATION RT-QID PRN 03/10/21 03/10/21 Inhaler] Loratadine [Claritin] 10 mg PO DAILY PRN 03/10/21 03/10/21 Pantoprazole [Protonix] 40 mg PO BID 03/10/21 03/10/21 amLODIPine [Norvasc] 5 mg PO HS 03/10/21 03/10/21 diphenhydrAMINE HCL [Benadryl] 25 mg PO Q4H PRN 03/10/21 03/10/21 Previous Rx's Medication Instructions Recorded Ketorolac [Toradol] 10 mg PO Q6HR #20 tab 03/10/21 Allergies Allergy/AdvReac Type Severity Reaction Status Date / Time SAI Inhibitors AdvReac ANGIOEDEMA Verified 03/10/21 11:26 bupropion [From Wellbutrin] AdvReac Hallucinati Verified 03/10/21 11:26 ons fluoxetine [From Prozac] AdvReac Hallucinati Verified 03/10/21 11:26 ons venlafaxine [From Effexor] AdvReac Hallucinati Verified 03/10/21 11:26 ons Review of Systems ROS Statement: Those systems with pertinent positive or pertinent negative responses have been documented in the HPI. ROS Other: All systems not noted in ROS Statement are negative. EKG Findings - EKG Results: EKG: interpreted by KIERSTEN, sinus rhythm (Sinus rhythm rate 80 VT interval 136 QRS duration 82 QT/QTC 350/43 evidence of old inferior configuration) Past Medical History Past Medical History: Hypertension Additional Past Medical History / Comment(s): kidney stones History of Any Multi-Drug Resistant Organisms: None Reported Past Surgical History: Bariatric Surgery, Section, Cholecystectomy, Hysterectomy, Orthopedic Surgery Additional Past Surgical History / Comment(s): Left knee replacement Past Psychological History: Anxiety, Depression Smoking Status: Never smoker Past Alcohol Use History: None Reported General Exam - General Exam Comments Initial Comments: This is a well-developed well-nourished awake alert oriented 3 female Limitations: no limitations General appearance: alert, in no apparent distress Head exam: Present: atraumatic, normocephalic, normal inspection Eye exam: Present: normal appearance, PERRL, EOMI. Absent: scleral icterus, conjunctival injection, periorbital swelling ENT exam: Present: normal exam, mucous membranes moist Neck exam: Present: normal inspection, full ROM, other (No stridor JVD or bruits). Absent: tenderness, meningismus, lymphadenopathy Respiratory exam: Present: normal lung sounds bilaterally, chest wall tenderness (Tennis palpation of left lateral chest wall and costochondral margin no step- off or crepitation older anteriorly.). Absent: respiratory distress, wheezes, rales, rhonchi, stridor Cardiovascular Exam: Present: regular rate, normal rhythm, normal heart sounds. Absent: systolic murmur, diastolic murmur, rubs, gallop, clicks GI/Abdominal exam: Present: soft, normal bowel sounds. Absent: distended, te nderness, guarding, rebound, rigid Extremities exam: Present: normal inspection, full ROM, normal capillary refill. Absent: tenderness, pedal edema, joint swelling, calf tenderness Back exam: Present: normal inspection Neurological exam: Present: alert, oriented X3, CN II-XII intact Psychiatric exam: Present: normal affect, normal mood Skin exam: Present: warm, dry, intact, normal color. Absent: rash Course Vital Signs 03/10/21 03/10/21 03/10/21 09:47 09:48 10:48 Temperature 97.5 F L Pulse Rate 18 L 85 89 Respiratory 16 18 18 Rate Blood Pressure 125/82 147/87 148/99 O2 Sat by Pulse 100 96 96 Oximetry 03/10/21 11:00 Temperature Pulse Rate 92 Respiratory 18 Rate Blood Pressure 130/106 O2 Sat by Pulse 96 Oximetry Chest Pain MDM - MDM Imaging reviewed no acute findings no evidence of DVT. I did a long discussion with patient regarding the findings the current presentation is consistent with chest wall pain and costochondritis [address] on nonsteroidal anti-inflammatories will follow back up with her doctor return when necessary Disposition Clinical Impression: Costochondritis, Chest wall syndrome Disposition: HOME SELF-CARE Condition: Good Instructions (If sedation given, give patient instructions): Costochondritis (ED) Prescriptions: Ketorolac [Toradol] 10 mg PO Q6HR #20 tab Is patient prescribed a controlled substance at d/c from ED?: No Referrals: Rosa Stewart MD [Primary Care Provider] - 1-2 days
[2021-03-10 13:23] VITALS: BP 145/99; PULSE 97
== END 2021-03-10 12:58 | disposition home or self-care (01) ==
LOC: EC 09:42
DX: M94.0 Chondrocostal junction syndrome [Tietze] (principal); M79.89 Other specified soft tissue disorders; I10 Essential (primary) hypertension; Z79.899 Other long term (current) drug therapy; Z88.8 Allergy status to other drugs, medicaments and biological substances
CPT/HCPCS: 99285; 96374; 36415; 93005; 85379; 80053; 82550; 83735; 84484; 85025; 85610; 85730; 71046; 93971; J1885

== ENCOUNTER → 2021-03-15 | Outpatient (CLI) | payer MEDICAID ==
--- NOTE | 2021-03-15 20:31 | XR ---
EXAMINATION TYPE: XR Hip Complete LT DATE OF EXAM: 03/15/2021 COMPARISON: NONE HISTORY: 45-year-old female with left hip pain TECHNIQUE: 2 views FINDINGS: No acute fracture, subluxation, dislocation. Tiny os acetabuli or degenerative labral ossification giles perolateral aspect of the acetabulum. IMPRESSION: No acute osseous abnormality seen.
== END | disposition home or self-care (01) ==
LOC: RADXRMAIN 11:53
PROVIDERS: ATTEND Nurse Practitioner Adult Health
DX: M25.552 Pain in left hip (principal)
CPT/HCPCS: 73502

== ENCOUNTER → 2021-04-30 | Outpatient (CLI) | payer MEDICAID ==
--- NOTE | 2021-04-30 06:59 | MR ---
EXAMINATION TYPE: MR lumbar spine wo con DATE OF EXAM: 04/30/2021 COMPARISON: MRI lumbar spine December 26, 2018 HISTORY: Lower back pain into both thighs x 2 years TECHNIQUE: Multiplanar, multisequence imaging of the lumbar spine is performed without IV contrast. FINDINGS: Sagittal images of the lumbar spine show vertebral body heights and alignment to remain sat isfactory. There is multilevel disc desiccation redemonstrated. Mild disc space narrowing L5-S1 level again seen. Annular tear noted posteriorly at L3-L4 level Is once again noted. The conus medullaris remains normal in position and signal ending superior L1 le yash. Two hemangiomas are redemonstrated at the L2 vertebra sagittal image 7. Mild multilevel anterior spurring. Axial images show the T12-L1, L1-L2, L2-L3, and L3-L4 levels all to remain within normal limits. Axial images at the L4-L5 level show mild to moderate left greater than right facet degenerative fowler ges with mild broad disc bulge and posterior annular tear mildly effacing the anterior thecal sac on axial image 7. There is mild to moderate left greater than right bilateral anterior inferior neural f oraminal narrowing. Interval degenerative progression from 2019 MRI noted. Axial images at the L5-S1 level show mild to moderate right greater than left facet degenerative fowler ges bilaterally with mild broad disc bulge having right lateral disc protrusion component. Spinal can al is preserved as there is increased epidural fat redemonstrated. There is moderate to severe right and mild left-sided inferior neural foraminal narrowing, encroachment on right L5 nerve is once again suspected sagittal image 12 and axial image 2. Extrarenal pelvis on the right is suspected as there is prominence of renal pelvis without calyceal d ilatation. Paraspinal muscle bulk is maintained. Prominent retroperitoneal fat again seen. 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 Encroachment on the right L5 nerve once again suspected. Further details as di scussed above.
== END | disposition home or self-care (01) ==
LOC: RADMRIMAIN 06:08
PROVIDERS: ATTEND Psychiatry & Neurology Neurology
DX: M51.16 Intervertebral disc disorders with radiculopathy, lumbar region (principal)
CPT/HCPCS: 72148

== ENCOUNTER 2021-07-13 00:28 | Emergency (ER) | payer OTHER, MEDICAID ==
--- NOTE | 2021-07-13 00:51 | XR ---
EXAMINATION TYPE: XR knee complete RT DATE OF EXAM: 07/13/2021 COMPARISON: NONE HISTORY: Knee pain TECHNIQUE: 3 views FINDINGS: I see no fracture nor dislocation. Joint spaces are normal. There is no sign of knee joint effusion. IMPRESSION: Negative right knee exam.
[2021-07-13] MEDS ORDERED: KETOROLAC 15 MG/ML 1 ML VIAL IM STA (01:10)
--- NOTE | 2021-07-13 01:11 | ED ---
Lower Extremity Injury HPI - General Chief Complaint: Extremity Injury, Lower Stated Complaint: Right Knee Injury Time Seen by Provider: 07/13/21 00:37 Source: patient, RN notes reviewed Mode of arrival: wheelchair - History of Present Illness Initial Comments: Patient is a 46-year-old female that presents to emergency room complaining of right knee pain. She notes that she was walking when she twisted it yesterday. She notes that she has had continuing pain for the past day. She noted minimal relief with at home first for pain control. She came emergently get evaluated for possible injury. She denied any other issues or complaints. She was otherwise well-appearing. She denied chest pain first breath headache nausea vomiting diarrhea constipation fever fatigue chills. - Related Data Home Medications Medication Instructions Recorded Confirmed Metoprolol Succinate (ER) [Toprol 100 mg PO BID 05/07/18 03/10/21 XL] Cyclobenzaprine [Flexeril] 10 mg PO HS PRN 04/21/20 03/10/21 Erenumab-Aooe [Aimovig 140 mg INJ Q28D 04/21/20 03/10/21 Autoinjector] Pregabalin [Lyrica] 150 mg PO TID 04/21/20 03/10/21 Rimegepant Sulfate [Nurtec Odt] 75 mg PO Q48H PRN 04/21/20 03/10/21 Vortioxetine Hydrobromide 20 mg PO HS 04/21/20 03/10/21 [Trintellix] Zolpidem [Ambien] 10 mg PO HS 04/21/20 03/10/21 cloNIDine HCL [Catapres] 0.1 mg PO HS 04/21/20 03/10/21 ARIPiprazole [Abilify] 2 mg PO HS 03/10/21 03/10/21 Albuterol Inhaler [Ventolin Hfa 1 - 2 puff INHALATION RT-QID PRN 03/10/21 03/10/21 Inhaler] Loratadine [Claritin] 10 mg PO DAILY PRN 03/10/21 03/10/21 Pantoprazole [Protonix] 40 mg PO BID 03/10/21 03/10/21 amLODIPine [Norvasc] 5 mg PO HS 03/10/21 03/10/21 diphenhydrAMINE HCL [Benadryl] 25 mg PO Q4H PRN 03/10/21 03/10/21 Previous Rx's Medication Instructions Recorded Ketorolac [Toradol] 10 mg PO Q6HR #20 tab 03/10/21 Allergies Allergy/AdvReac Type Severity Reaction Status Date / Time SAI Inhibitors AdvReac ANGIOEDEMA Verified 07/13/21 00:32 bupropion [From Wellbutrin] AdvReac Hallucinati Verified 07/13/21 00:32 ons fluoxetine [From Prozac] AdvReac Hallucinati Verified 07/13/21 00:32 ons venlafaxine [From Effexor] AdvReac Hallucinati Verified 07/13/21 00:32 ons Review of Systems ROS Statement: Those systems with pertinent positive or pertinent negative responses have been documented in the HPI. ROS Other: All systems not noted in ROS Statement are negative. Past Medical History Past Medical History: Hypertension, Pneumonia Additional Past Medical History / Comment(s): kidney stones History of Any Multi-Drug Resistant Organisms: None Reported Past Surgical History: Bariatric Surgery, Section, Cholecystectomy, Hysterectomy, Orthopedic Surgery Additional Past Surgical History / Comment(s): Left knee replacement Past Psychological History: Anxiety, Depression Smoking Status: Never smoker Past Alcohol Use History: None Reported General Exam General appearance: alert, in no apparent distress Head exam: Present: atraumatic, normocephalic, normal inspection Eye exam: Present: normal appearance, PERRL, EOMI. Absent: scleral icterus, conjunctival injection, periorbital swelling ENT exam: Present: normal exam, mucous membranes moist Neck exam: Present: normal inspection Respiratory exam: Present: normal lung sounds bilaterally. Absent: respiratory distress, wheezes, rales, rhonchi, stridor Cardiovascular Exam: Present: regular rate, normal rhythm, normal heart sounds. Absent: systolic murmur, diastolic murmur, rubs, gallop, clicks Extremities exam: Present: normal inspection, full ROM, normal capillary refill. Absent: tenderness, pedal edema, joint swelling, calf tenderness Neurological exam: Present: alert, oriented X3 Psychiatric exam: Present: normal affect, normal mood Skin exam: Present: warm, dry, intact, normal color. Absent: rash Course Vital Signs 07/13/21 00:29 Temperature 98.5 F Pulse Rate 85 Respiratory 17 Rate Blood Pressure 179/99 O2 Sat by Pulse 97 Oximetry Medical Decision Making - Medical Decision Making 46-year-old female complaining of any pain after twisting it yesterday. X-ray the right knee, 15 mg of Toradol ordered. X-ray negative for any acute fractures dislocations. Patient most likely has a right knee sprain. Case discussed with Dr. Miller, patient discharge home with follow-up to primary care. - Radiology Data Radiology results: report reviewed, image reviewed X-ray right knee: Negative right knee exam. Disposition Clinical Impression: Right knee sprain Disposition: HOME SELF-CARE Condition: Stable Instructions (If sedation given, give patient instructions): Knee Sprain (ED) Additional Instructions: Please return to the Emergency Department if symptoms worsen or any other concerns. Follow-up with primary care 1-2 days. Rest ice compress elevate. Take Tylenol and Motrin as needed for pain. Is patient prescribed a controlled substance at d/c from ED?: No Referrals: Rosa Stewart MD [Primary Care Provider] - 1-2 days Time of Disposition: 01:11
[2021-07-13 01:36] VITALS: BP 142/88; PULSE 89; RESP 18; TEMP 98.9
== END 2021-07-13 01:20 | disposition home or self-care (01) ==
LOC: EC 00:28
DX: S83.91XA Sprain of unspecified site of right knee, initial encounter (principal); I10 Essential (primary) hypertension; Z88.8 Allergy status to other drugs, medicaments and biological substances; Z79.899 Other long term (current) drug therapy
CPT/HCPCS: 73562; 99283; 96372; J1885

== ENCOUNTER 2021-10-24 23:20 | Emergency (ER) | payer MEDICAID ==
[2021-10-25] MEDS ORDERED: SODIUM CHLORIDE 0.9% 1,000 ML IV STA (01:56)
[2021-10-25] MEDS ORDERED: DEXAMETHASONE SOD PHOSPHATE 10 MG/ML 1 ML VIAL IVP STA (01:57)
--- NOTE | 2021-10-25 02:02 | ED ---
SOB HPI - General Chief Complaint: Shortness of Breath Stated Complaint: COVID+, SOB Time Seen by Provider: 10/25/21 01:40 Source: patient Mode of arrival: wheelchair Limitations: no limitations - History of Present Illness Initial Comments: 46 year-old female patient presents to the emergency department for evaluation of shortness of breath, chest tightness, cough, and sore throat. She did have positive home COVID test on . States symptoms have been worsening. States she is having difficulty catching her breath. States she did have left lower lobe pneumonia 3 weeks ago, completed antibiotics and was feeling better. Her son came home from school with similar symptoms to her and tested positive. She states she did use albuterol inhaler at home and took cold medicine around 8pm with minimal relief. She reports dry cough. Feels like there is a band around her chest and upper abdomen. She also reports pain to her left shoulder blade that worsens with deep breathing. She denies history of blood clot. Denies use of hormonal medications or control. She denies leg pain or swelling. She has been vaccinated and did receive booster vaccine for COVID. Patient denies any recent rash, fever, chills, nausea, vomiting, diarrhea, constipation, back pain, numbness, tingling, dizziness, weakness, hematuria, dysuria, urinary urgency, urinary frequency, visual changes, or any other complaints. - Related Data Home Medications Medication Instructions Recorded Confirmed Metoprolol Succinate (ER) [Toprol 100 mg PO BID 05/07/18 03/10/21 XL] Cyclobenzaprine [Flexeril] 10 mg PO HS PRN 04/21/20 03/10/21 Erenumab-Aooe [Aimovig 140 mg INJ Q28D 04/21/20 03/10/21 Autoinjector] Pregabalin [Lyrica] 150 mg PO TID 04/21/20 03/10/21 Rimegepant Sulfate [Nurtec Odt] 75 mg PO Q48H PRN 04/21/20 03/10/21 Vortioxetine Hydrobromide 20 mg PO HS 04/21/20 03/10/21 [Trintellix] Zolpidem [Ambien] 10 mg PO HS 04/21/20 03/10/21 cloNIDine HCL [Catapres] 0.1 mg PO HS 04/21/20 03/10/21 ARIPiprazole [Abilify] 2 mg PO HS 03/10/21 03/10/21 Albuterol Inhaler [Ventolin Hfa 1 - 2 puff INHALATION RT-QID PRN 03/10/21 03/10/21 Inhaler] Loratadine [Claritin] 10 mg PO DAILY PRN 03/10/21 03/10/21 Pantoprazole [Protonix] 40 mg PO BID 03/10/21 03/10/21 amLODIPine [Norvasc] 5 mg PO HS 03/10/21 03/10/21 diphenhydrAMINE HCL [Benadryl] 25 mg PO Q4H PRN 03/10/21 03/10/21 Previous Rx's Medication Instructions Recorded Ketorolac [Toradol] 10 mg PO Q6HR #20 tab 03/10/21 Budesonide [Pulmicort Flexhaler] 2 puff INHALATION BID #1 each 10/25/21 Dexamethasone 6 mg PO DAILY #9 tablet 10/25/21 guaiFENesin-DM 600/30MG [Mucinex 2 each PO Q12HR PRN #20 tab 10/25/21 Dm] Allergies Allergy/AdvReac Type Severity Reaction Status Date / Time SAI Inhibitors AdvReac ANGIOEDEMA Verified 10/24/21 23:37 bupropion [From Wellbutrin] AdvReac Hallucinati Verified 10/24/21 23:37 ons fluoxetine [From Prozac] AdvReac Hallucinati Verified 10/24/21 23:37 ons venlafaxine [From Effexor] AdvReac Hallucinati Verified 10/24/21 23:37 ons Review of Systems ROS Statement: Those systems with pertinent positive or pertinent negative responses have been documented in the HPI. ROS Other: All systems not noted in ROS Statement are negative. Past Medical History Past Medical History: Hypertension, Pneumonia Additional Past Medical History / Comment(s): kidney stones History of Any Multi-Drug Resistant Organisms: None Reported Past Surgical History: Bariatric Surgery, Section, Cholecystectomy, Hysterectomy, Orthopedic Surgery Additional Past Surgical History / Comment(s): Left knee replacement Past Psychological History: Anxiety, Depression Smoking Status: Never smoker Past Alcohol Use History: None Reported Past Drug Use History: None Reported General Exam Limitations: no limitations General appearance: alert, in no apparent distress, other (This is a well- developed, well-nourished adult female in no acute distress.) ENT exam: Present: mucous membranes moist. Absent: normal oropharynx (Phary ngeal erythema, no tonsillar hypertrophy or exudate.) Respiratory exam: Present: normal lung sounds bilaterally. Absent: respiratory distress, wheezes, rales, rhonchi, stridor Cardiovascular Exam: Present: normal rhythm, tachycardia, normal heart sounds. Absent: systolic murmur, diastolic murmur, rubs, gallop, clicks GI/Abdominal exam: Present: soft, normal bowel sounds. Absent: distended, tenderness, guarding, rebound, rigid Neurological exam: Present: alert, oriented X3, CN II-XII intact Psychiatric exam: Present: normal affect, normal mood Skin exam: Present: warm, dry, intact, normal color. Absent: rash Course Vital Signs 10/24/21 10/25/21 10/25/21 23:33 01:46 01:48 Temperature 98.3 F Pulse Rate 125 H 112 H Respiratory 22 22 20 Rate Blood Pressure 128/88 134/90 O2 Sat by Pulse 95 96 Oximetry 10/25/21 02:35 Temperature Pulse Rate 103 H Respiratory 22 Rate Blood Pressure 157/80 O2 Sat by Pulse 98 Oximetry Medical Decision Making - Medical Decision Making 46 year-old female patient presents with shortness of breath and chest tightness. She tested positive for COVID at home on . Physical examination reveals clear equal lung sounds which is tachycardic oxygen saturati on between 95 and 97% on room air. Labs reviewed and did reveal d-dimer 0.2, CRP 1.2, LDH normal. Chest x-ray showed no evidence for pneumonia at this time. I did discuss findings and results with her. She'll be discharged with prescriptions for dexamethasone, Pulmicort, and Mucinex DM. She is given recommendations for supportive care at home. She is instructed to follow-up with the primary care physician for recheck in 1-2 days. Return parameters were discussed in detail. She verbalizes understanding and agrees with this plan. My attending is Dr. Medeiros. - Lab Data Result diagrams: 10/25/21 02:25 10/25/21 02:25 Lab Results 10/25/21 10/25/21 10/25/21 Range/Units 02:25 02:25 02:25 WBC 8.6 (3.8-10.6) k/uL RBC 4.73 (3.80-5.40) m/uL Hgb 12.5 (11.4-16.0) gm/dL Hct 39.6 (34.0-46.0) % MCV 83.6 (80.0-100.0) fL MCH 26.3 (25.0-35.0) pg MCHC 31.5 (31.0-37.0) g/dL RDW 14.9 (11.5-15.5) % Plt Count 252 (150-450) k/uL MPV 7.5 Neutrophils % 56 % Lymphocytes % 31 % Monocytes % 5 % Eosinophils % 3 % Basophils % 1 % Neutrophils # 4.8 (1.3-7.7) k/uL Lymphocytes # 2.7 (1.0-4.8) k/uL Monocytes # 0.5 (0-1.0) k/uL Eosinophils # 0.3 (0-0.7) k/uL Basophils # 0.1 (0-0.2) k/uL Hypochromasia Slight D-Dimer 0.23 (<0.60) mg/L FEU Sodium 137 (137-145) mmol/L Potassium 4.0 (3.5-5.1) mmol/L Chloride 104 (98-107) mmol/L Carbon Dioxide 22 (22-30) mmol/L Anion Gap 11 mmol/L BUN 10 (7-17) mg/dL Creatinine 0.58 (0.52-1.04) mg/dL Est GFR (CKD-EPI)AfAm >90 (>60 ml/min/1.73 sqM) Est GFR (CKD-EPI)NonAf >90 (>60 ml/min/1.73 sqM) Glucose 123 H (74-99) mg/dL Calcium 9.3 (8.4-10.2) mg/dL Total Bilirubin 0.5 (0.2-1.3) mg/dL AST 33 (14-36) U/L ALT 39 H (4-34) U/L Alkaline Phosphatase 126 (38-126) U/L Lactate Dehydrogenase 577 (313-618) U/L Troponin I (0.000-0.034) ng/mL C-Reactive Protein 1.2 H (<1.0) mg/dL Total Protein 6.9 (6.3-8.2) g/dL Albumin 4.2 (3.5-5.0) g/dL Coronavirus (PCR) (Not Detectd) 10/25/21 10/25/21 Range/Units 02:25 02:25 WBC (3.8-10.6) k/uL RBC (3.80-5.40) m/uL Hgb (11.4-16.0) gm/dL Hct (34.0-46.0) % MCV (80.0-100.0) fL MCH (25.0-35.0) pg MCHC (31.0-37.0) g/dL RDW (11.5-15.5) % Plt Count (150-450) k/uL MPV Neutrophils % % Lymphocytes % % Monocytes % % Eosinophils % % Basophils % % Neutrophils # (1.3-7.7) k/uL Lymphocytes # (1.0-4.8) k/uL Monocytes # (0-1.0) k/uL Eosinophils # (0-0.7) k/uL Basophils # (0-0.2) k/uL Hypochromasia D-Dimer (<0.60) mg/L FEU Sodium (137-145) mmol/L Potassium (3.5-5.1) mmol/L Chloride (98-107) mmol/L Carbon Dioxide (22-30) mmol/L Anion Gap mmol/L BUN (7-17) mg/dL Creatinine (0.52-1.04) mg/dL Est GFR (CKD-EPI)AfAm (>60 ml/min/1.73 sqM) Est GFR (CKD-EPI)NonAf (>60 ml/min/1.73 sqM) Glucose (74-99) mg/dL Calcium (8.4-10.2) mg/dL Total Bilirubin (0.2-1.3) mg/dL AST (14-36) U/L ALT (4-34) U/L Alkaline Phosphatase (38-126) U/L Lactate Dehydrogenase (313-618) U/L Troponin I <0.012 (0.000-0.034) ng/mL C-Reactive Protein (<1.0) mg/dL Total Protein (6.3-8.2) g/dL Albumin (3.5-5.0) g/dL Coronavirus (PCR) Detected A (Not Detectd) - Radiology Data Radiology results: report reviewed, image reviewed Two-views of the chest are obtained. Report was reviewed in its entirety. Impression by Dr. Solomon shows normal chest. There is clearing of small area of pneumonia left midlung field compared to last exam. Disposition Clinical Impression: COVID-19 Disposition: HOME SELF-CARE Condition: Good Instructions (If sedation given, give patient instructions): Coronavirus Disease 2019 (COVID-19) Additional Instructions: Tips to help you feel better: -Maintain adequate fluid intake - especially water. -Rest, you are healing your body will require extra sleep. -Eat even if you do not feel like it - broth, jello, toast are fine if you cannot eat full meals. -Take tylenol and motrin alternating (if you have no allergies or have not been instructed to avoid these medications) to help with body aches and fevers. -Obtain over the counter vitamin C, zinc, and vitamin D3. -Take medications as prescribed. Follow-up with your primary care physician for recheck in 1-2 days. Return for any new, worsening, or concerning symptoms. Prescriptions: Dexamethasone 6 mg PO DAILY #9 tablet guaiFENesin-DM 600/30MG [Mucinex Dm] 2 each PO Q12HR PRN #20 tab PRN Reason: Cough Budesonide [Pulmicort Flexhaler] 2 puff INHALATION BID #1 each Is patient prescribed a controlled substance at d/c from ED?: No Referrals: Nonstaff,Physician [Primary Care Provider] - 1-2 days Time of Disposition: 03:32
--- NOTE | 2021-10-25 02:22 | XR ---
EXAMINATION TYPE: XR chest 2V DATE OF EXAM: 10/25/2021 COMPARISON: 10/07/2021 HISTORY: Difficulty breathing TECHNIQUE: FINDINGS: Heart and mediastinum are normal. Lungs are clear. Diaphragm is normal. Bony thorax appears normal. IMPRESSION: Normal chest. There is clearing of the small area of pneumonia in left mid lung field com pared to last exam.
[2021-10-25 02:36] VITALS: RESP 22
[2021-10-25 03:01] LABS: Basophils # (A) 0.1 k/uL (0-0.2); Basophils % (A) 1 %; Eosinophils # (A) 0.3 k/uL (0-0.7); Eosinophils % (A) 3 %; HCT 39.6 % (34.0-46.0); HGB 12.5 gm/dL (11.4-16.0); Hypochromasia Slight; Lymphocytes # (A) 2.7 k/uL (1.0-4.8); Lymphocytes % (A) 31 %; MCH 26.3 pg (25.0-35.0); MCHC 31.5 g/dL (31.0-37.0); MCV 83.6 fL (80.0-100.0); Mean Platelet Volume 7.5; Monocytes # (A) 0.5 k/uL (0-1.0); Monocytes % (A) 5 %; Neutrophils # (A) 4.8 k/uL (1.3-7.7); Neutrophils % (A) 56 %; Platelet Count 252 k/uL (150-450); RBC 4.73 m/uL (3.80-5.40); RDW 14.9 % (11.5-15.5); WBC 8.6 k/uL (3.8-10.6)
[2021-10-25 03:16] LABS: ALT 39 U/L (4-34); AST 33 U/L (14-36); African American GFR (CKD) >90 (>60 ml/min/1.73 sqM); Albumin 4.2 g/dL (3.5-5.0); Alkaline Phosphatase 126 U/L (38-126); Anion Gap 11 mmol/L; Blood Urea Nitrogen 10 mg/dL (7-17); C Reactive Protein 1.2 mg/dL (<1.0); Calcium 9.3 mg/dL (8.4-10.2); Carbon Dioxide 22 mmol/L (22-30); Chloride 104 mmol/L (98-107); Glucose 123 mg/dL (74-99); LDH 577 U/L (313-618); Non-African American GFR(CKD) >90 (>60 ml/min/1.73 sqM); Sodium 137 mmol/L (137-145); Total Bilirubin 0.5 mg/dL (0.2-1.3); Total Protein 6.9 g/dL (6.3-8.2)
[2021-10-25 04:06] VITALS: BP 127/74; PULSE 74; TEMP 98.4
== END 2021-10-25 04:06 | disposition home or self-care (01) ==
LOC: EC 23:20
DX: U07.1 COVID-19 (principal); I10 Essential (primary) hypertension; Z88.8 Allergy status to other drugs, medicaments and biological substances; Z88.5 Allergy status to narcotic agent
CPT/HCPCS: 36415; 93005; 85379; 80053; 83615; 84484; 85025; 86140; 87635; 71046; 99285; 96374; 96361; J1100

== ENCOUNTER → 2022-03-17 | Outpatient (CLI) | payer MEDICAID ==
[2022-03-17 15:22] LABS: Basophils # (A) 0.05 X 10*3/uL (0.00-0.10); Basophils % (A) 0.7 %; Eosinophils # (A) 0.31 X 10*3/uL (0.04-0.35); Eosinophils % (A) 4.1 %; HCT 39.5 % (37.2-46.3); HGB 12.2 g/dL (12.0-15.0); Immature Grans, Automated 0.4 %; Lymphocytes # (A) 2.61 X 10*3/uL (0.90-5.00); Lymphocytes % (A) 34.8 %; MCH 25.3 pg (27.0-32.0); MCHC 30.9 g/dL (32.0-37.0); MCV 81.8 fL (80.0-97.0); Monocytes # (A) 0.53 X 10*3/uL (0.20-1.00); Monocytes % (A) 7.1 %; NRBC Per 100 WBC 0 /100 WBCS (0.0-0.0); Neutrophils # (A) 3.96 X 10*3/uL (1.80-7.70); Neutrophils % (A) 52.9 %; Platelet Count 287 X 10*3/uL (140-440); RBC 4.83 X 10*6/uL (4.10-5.20); RDW 15.6 % (11.5-14.5); WBC 7.49 X 10*3/uL (4.50-10.00)
[2022-03-17 16:22] LABS: Anion Gap 13.1 mmol/L (10.00-18.00); Carbon Dioxide 20.9 mmol/L (20.0-27.5); Potassium 3.9 mmol/L (3.5-5.5)
== END | disposition home or self-care (01) ==
LOC: LABPAT 09:56
PROVIDERS: ATTEND Orthopaedic Surgery Hand Surgery
DX: Z01.812 Encounter for preprocedural laboratory examination (principal); M65.322 Trigger finger, left index finger
CPT/HCPCS: 80051; 85025; 93005

== ENCOUNTER 2022-03-23 07:19 | Day surgery (SDC) | payer MEDICAID ==
[2022-03-18 10:52] VITALS: BMI 46.5
--- NOTE | 2022-03-22 11:03 | P.HPOR ---
History of Present Illness H&P Date: 03/22/22 Chief Complaint: Left middle finger trigger finger Subjective: This is a 46 year old female that presents today for initial evaluation regarding a 1 year history of left middle finger pain that has been progressively worsening over the past several months with locking catching and clicking of the finger. She had a right middle finger trigger finger that responded well to surgery over 10 years ago. She denies any injury or any paresthesias. Physical Examination: LUE: AIN/PIN/Radial/Ulnar/Median motor intact. Radial/Ulnar/Median SILT. 2+/4 Radial/Ulnar pulses palpated. 5/5 APB, 5/5 FDI. Negative Finkelsteins, negative CMC grind, negative Durkan's compression. TTP over left middle finger A1 andres with locking, catching and clicking of digit. Impression: 1.) Left middle finger stenosing tenosynovitis Plan: Diagnosis and treatment options were discussed with the patient. She would like to proceed with surgical intervention with a left middle finger A1 andres re lease since her symptoms have been present for over a year now. Risks and benefit of surgery including bleeding, infection, damage to surrounding tissue, need for further surgery, recurrence, residual numbness were discussed and the patient wished to go forward with surgery. Labs/EKG are ordered, MAC anesthesia is planned. -Ruslan Castro DO Orthopedic Hand/Upper Extremity Surgeon Past Medical History Past Medical History: GERD/Reflux, Hypertension, Pneumonia, Seizure Disorder Additional Past Medical History / Comment(s): Hx occ tachycardia. Allergies, bronchitis w/ any illness. Sl anemia. Migraines. Hx seizure x1 R/T Rx in 2009 est. Hx kidney stones. 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 Lt middle trigger finger. History of Any Multi-Drug Resistant Organisms: None Reported Past Surgical History: Bariatric Surgery, Section, Cholecystectomy, Hysterectomy, Joint Replacement, Orthopedic Surgery Additional Past Surgical History / Comment(s): Tonie Band 2007. C-S x2. Left knee replacement. Rt knee meniscus repair. Colonoscopy, EGD. Kidney stone stents. Past Anesthesia/Blood Transfusion Reactions: Motion Sickness, Postoperative Nausea & Vomiting (PONV) Additional Past Anesthesia/Blood Transfusion Reaction / Comment(s): Nausea after general anesthesia. Grandmother has a hard time waking up. Smoking Status: Never smoker - Past Family History Mother Family Medical History: Cancer Additional Family Medical History / Comment(s): breast cancer Medications and Allergies Home Medications Medication Instructions Recorded Confirmed Type Metoprolol Succinate (ER) [Toprol 100 mg PO BID 05/07/18 03/18/22 History XL] Erenumab-Aooe [Aimovig 140 mg INJ Q28D 04/21/20 03/18/22 History Autoinjector] Pregabalin [Lyrica] 150 mg PO TID 04/21/20 03/18/22 History Rimegepant Sulfate [Nurtec Odt] 75 mg PO Q48H PRN 04/21/20 03/18/22 History Vortioxetine Hydrobromide 20 mg PO HS 04/21/20 03/18/22 History [Trintellix] Zolpidem [Ambien] 10 mg PO HS 04/21/20 03/18/22 History cloNIDine HCL [Catapres] 0.1 mg PO HS 04/21/20 03/18/22 History ARIPiprazole [Abilify] 2 mg PO HS 03/10/21 03/18/22 History Albuterol Inhaler [Ventolin Hfa 1 - 2 puff INHALATION RT-QID PRN 03/10/21 03/18/22 History Inhaler] Loratadine [Claritin] 10 mg PO DAILY PRN 03/10/21 03/18/22 History Pantoprazole [Protonix] 40 mg PO BID 03/10/21 03/18/22 History amLODIPine [Norvasc] 5 mg PO HS 03/10/21 03/18/22 History diphenhydrAMINE HCL [Benadryl] 25 mg PO Q4H PRN 03/10/21 03/18/22 History Cyclobenzaprine [Flexeril] 10 mg PO TID PRN #30 tab 02/08/22 03/18/22 Rx Ibuprofen [Motrin Ib] 800 mg PO Q8H PRN 03/18/22 03/18/22 History Ketorolac [Toradol] 10 mg PO Q6HR PRN 03/18/22 03/18/22 History Prochlorperazine [Compazine] 10 mg PO Q4-6H PRN 03/18/22 03/18/22 History Allergies Allergy/AdvReac Type Severity Reaction Status Date / Time SAI Inhibitors Allergy ANGIOEDEMA Verified 03/18/22 10:22 bupropion [From Wellbutrin] AdvReac Hallucinati Verified 03/18/22 10:22 ons fluoxetine [From Prozac] AdvReac Hallucinati Verified 03/18/22 10:22 ons venlafaxine [From Effexor] AdvReac Hallucinati Verified 03/18/22 10:22 ons Physical Examination Osteopathic Statement: *. No significant issues noted on an osteopathic structural exam other than those noted in the History and Physical/Consult.
[~2022-03-23 07:19] MED LIST changes: -DEXAMETHASONE SOD PHOSPHATE 10 MG/ML 1 ML VIAL IV ONE; +DEXAMETHASONE SOD PHOSPHATE 4 MG/ML 1 ML VIAL IV ONE; -GENTAMICIN 120 MG in SODIUM CHLORIDE 0.9% 100 ML IVPB ONE; -IOPAMIDOL-370 50ML BTL MISCELLANE ONE; -KETOROLAC 15 MG/ML 1 ML VIAL ONE; -LIDOCAINE 1% (10MG/ML) FOR IV START INTRADERMA PRN; -LIDOCAINE 1% INJ 10MG/ML (20 ML MDV) ONE; +MIDAZOLAM 2 MG/2 ML VIAL IV PRN; -MIDAZOLAM 2 MG/2 ML VIAL ONE; -PROPOFOL 10 MG/ML 20 ML VIAL IV ONE; +Pre Op ABX Message 1 EACH MISC MISCELLANE ONE; +SCOPOLAMINE 1 MG/72 HR PATCH TRANSDERM ONE; -SCOPOLAMINE 1.5MG/72HR PATCH TRANSDERM ONE; -SUCCINYLCHOLINE CHLORIDE 100 MG/5 ML SYR IV ONE; -fentaNYL (PF) 50 MCG/ML 2 ML AMP ONE
[2022-03-23 08:10] VITALS: TEMP 98
[2022-03-23] MEDS ORDERED: fentaNYL (PF) 50 MCG/ML 2 ML AMP ONE (08:26)
[2022-03-23] MEDS ORDERED: PROPOFOL 10 MG/ML 20 ML VIAL IV ONE (08:26)
[2022-03-23] MEDS ORDERED: MIDAZOLAM 2 MG/2 ML VIAL ONE (08:26)
[2022-03-23] MEDS ORDERED: BUPIVACAINE (PF) 0.5% 30 ML VIAL SQ ONE ×3 (08:29→08:36)
[2022-03-23] MEDS ORDERED: LIDOCAINE 1% INJ 10MG/ML (20 ML MDV) SQ ONE ×3 (08:29→08:36)
--- NOTE | 2022-03-23 08:49 | P.OP ---
Date of Procedure: 03/23/22 Preoperative Diagnosis: 1.) Left middle finger trigger finger Postoperative Diagnosis: 1.) Left middle finger trigger finger Procedure(s) Performed: 1.) Left middle finger A1 andres release Anesthesia: MAC Surgeon: Ruslan Castro Open Soaper Tender #1: Fransico Thornton Estimated Blood Loss (ml): 0 Pathology: none sent Condition: stable Disposition: PACU Description of Procedure: This is a 46 year old female who presents today for a left middle finger trigger finger A1 andres release after having failed conservative treatment. Risks and benefits of surgery were discussed with the patient including bleeding, damage to surrounding tissue, infection, need for further surgery as well as risks of anesthesia including pulmonary embolism and even and the patient wished to proceed with surgical intervention. The patient was seen in the pre-operative area by myself. Consent and H&P were completed and updated. The correct extremity was marked in the pre-operative area by myself and all other questions were answered. Operative Narrative: The patient was brought to the operating room by the department of anesthesia. They remained on the portable stretcher and a rolling hand table was brought to the side of the operative extremity. Pre-operative time out was performed indicating the correct patient, procedure and laterality. All in the room agreed. Pre-operative antibiotics were given prior to skin incision. The patient was then drifted off to sleep by the department of anesthesia. MAC anesthesia was utilized and a 50:50 mixture of 1% Lidocaine and 0.5% bupivacaine was injected into the subcutaneous tissues of the palmar skin, 6ccs total. A nonsterile tourniquet was then applied to the operative extremity and the left upper extremity was then prepped and draped in normal sterile fashion. The operative extremity was the exsanguinated with an esmarch bandage and the tourniquet was inflated to 250mmHg. Oblique incision was made at the base of the left middle finger finger. Blunt dissection was taken down to the level of the A1 andres. Ragnell retractors were placed both radially and ulnarly to protect neurovascular bundles. Littler tenotomy scissors were then used to release the A1 andres from proximal to dis leonila under direct visualization. Proximal fascial attachments were released. The tendon was then taken through range of motion and no locking or catching was appreciated. The wound was then closed with interrupted 4-0 nylon sutures in a horizontal mattress fashion. Sterile dressing consisting of adaptic, 4x4s, webril, and an luis fernando wrap was applied. Tourniquet was let down and the hand was immediately well perfused. The patient was then woken by the department of anesthesia and transferred to PACU in stable condition. Ruslan Castro D.O. Orthopedic Hand/Upper Extremity Surgeon
[2022-03-23 09:05] VITALS: BP 116/73; PULSE 72; RESP 16
== END 2022-03-23 09:20 | disposition home or self-care (01) ==
LOC: OR 07:19
PROVIDERS: ATTEND Orthopaedic Surgery Hand Surgery
DX: M65.332 Trigger finger, left middle finger (principal); M65.842 Other synovitis and tenosynovitis, left hand; K21.9 Gastro-esophageal reflux disease without esophagitis; I10 Essential (primary) hypertension; Z87.01 Personal history of pneumonia (recurrent); G40.909 Epilepsy, unspecified, not intractable, without status epilepticus; Z87.442 Personal history of urinary calculi; M50.20 Other cervical disc displacement, unspecified cervical region; Z98.84 Bariatric surgery status; Z98.891 History of uterine scar from previous surgery; Z90.49 Acquired absence of other specified parts of digestive tract; Z90.710 Acquired absence of both cervix and uterus; Z96.652 Presence of left artificial knee joint; Z98.890 Other specified postprocedural states; Z80.3 Family history of malignant neoplasm of breast; F41.9 Anxiety disorder, unspecified; F32.A Depression, unspecified; G43.909 Migraine, unspecified, not intractable, without status migrainosus; Z79.899 Other long term (current) drug therapy; Z88.8 Allergy status to other drugs, medicaments and biological substances
CPT/HCPCS: 26055; J2250; J1100; J2405; J2001; J3010; J2704

== ENCOUNTER 2022-04-20 02:14 | Emergency (ER) | payer MEDICAID ==
[2022-04-20 02:28] VITALS: PULSE 77
[2022-04-20 03:05] LABS: Basophils % (A) 0 %; Eosinophils # (A) 0.2 k/uL (0-0.7); Eosinophils % (A) 1 %; HCT 38.1 % (34.0-46.0); HGB 12.1 gm/dL (11.4-16.0); Lymphocytes # (A) 1.4 k/uL (1.0-4.8); Lymphocytes % (A) 11 %; MCH 26.1 pg (25.0-35.0); MCHC 31.7 g/dL (31.0-37.0); MCV 82.3 fL (80.0-100.0); Mean Platelet Volume 7.7; Monocytes # (A) 0.7 k/uL (0-1.0); Monocytes % (A) 5 %; Neutrophils # (A) 10.4 k/uL (1.3-7.7); Neutrophils % (A) 82 %; Platelet Count 274 k/uL (150-450); RBC 4.63 m/uL (3.80-5.40); RDW 15.7 % (11.5-15.5); WBC 12.7 k/uL (3.8-10.6)
[2022-04-20 03:13] LABS: ALT 26 U/L (4-34); AST 24 U/L (14-36); African American GFR (CKD) >90 (>60 ml/min/1.73 sqM); Albumin 4.3 g/dL (3.5-5.0); Alkaline Phosphatase 115 U/L (38-126); Amylase 49 U/L (30-110); Anion Gap 10 mmol/L; Blood Urea Nitrogen 13 mg/dL (7-17); Calcium 9.4 mg/dL (8.4-10.2); Carbon Dioxide 21 mmol/L (22-30); Chloride 106 mmol/L (98-107); Glucose 171 mg/dL (74-99); Lipase 66 U/L (23-300); Non-African American GFR(CKD) 90 (>60 ml/min/1.73 sqM); Potassium 4.2 mmol/L (3.5-5.1); Sodium 137 mmol/L (137-145); Total Bilirubin 0.3 mg/dL (0.2-1.3); Total Protein 6.8 g/dL (6.3-8.2)
[2022-04-20 03:51] LABS: Appearance,Urine Clear (Clear); Bacteria,Urine Rare /hpf; Bilirubin,Urine Negative (Negative); Blood,Urine Moderate (Negative); Color,Urine Yellow; Glucose,Urine (UA) Negative (Negative); Ketones,Urine Negative (Negative); Leukocyte Esterase,Urine Negative (Negative); Mucus,Urine Rare /hpf; Nitrite,Urine Negative (Negative); PH, Urine 6.5 (5.0-8.0); Protein,Urine Negative (Negative); RBC,Urine 58 /hpf (0-5); Specific Gravity,Urine 1.018 (1.001-1.035); Squamous Epithelial Cell,Urine 3 /hpf (0-4); Urobilinogen,Urine <2.0 mg/dL (<2.0); WBC,Urine 1 /hpf (0-5)
[2022-04-20] MEDS ORDERED: ONDANSETRON 4 MG/2 ML VIAL IVP STA (04:08)
[2022-04-20] MEDS ORDERED: MORPHINE SULFATE 4 MG/ML SYRINGE IV STA (04:08)
[2022-04-20] MEDS ORDERED: TAMSULOSIN 0.4 MG CAP.ER.24H PO STA (05:26)
--- NOTE | 2022-04-20 05:28 | ED ---
General Adult HPI - General Chief complaint: Urogenital Stated complaint: Abd Pain, Vomiting Time Seen by Provider: 04/20/22 02:39 Source: patient Mode of arrival: ambulatory - History of Present Illness Initial comments: This patient is a 47-year-old woman presenting with left flank and abdomen pain that she states is very similar to previous kidney stone pain. The pain had s tarted some hours ago. She also has developed some nausea and vomiting associated. She feels like she is urinating more frequently. -: hour(s) Location: abdomen (Flank) Quality: aching Consistency: colicky Improves with: none Worsens with: none Associated Symptoms: nausea/vomiting Treatments Prior to Arrival: none - Related Data Home Medications Medication Instructions Recorded Confirmed Metoprolol Succinate (ER) [Toprol 100 mg PO BID 05/07/18 04/25/22 XL] Erenumab-Aooe [Aimovig 140 mg INJ Q28D 04/21/20 04/25/22 Autoinjector] Pregabalin [Lyrica] 150 mg PO HS 04/21/20 04/25/22 Rimegepant Sulfate [Nurtec Odt] 75 mg PO Q48H PRN 04/21/20 04/25/22 Vortioxetine Hydrobromide 20 mg PO HS 04/21/20 04/25/22 [Trintellix] Zolpidem [Ambien] 10 mg PO HS 04/21/20 04/25/22 cloNIDine HCL [Catapres] 0.1 mg PO HS 04/21/20 04/25/22 ARIPiprazole [Abilify] 2 mg PO HS 03/10/21 04/25/22 Pantoprazole [Protonix] 40 mg PO BID 03/10/21 04/25/22 amLODIPine [Norvasc] 5 mg PO HS 03/10/21 04/25/22 diphenhydrAMINE HCL [Benadryl] 25 mg PO Q4H PRN 03/10/21 04/25/22 Ibuprofen [Motrin Ib] 800 mg PO Q8H PRN 03/18/22 04/25/22 Cyclobenzaprine [Flexeril] 10 mg PO BID 04/22/22 04/25/22 Tamsulosin [Flomax] 0.4 mg PO HS 04/22/22 04/25/22 Topiramate [Topamax] 50 mg PO HS 04/22/22 04/25/22 Previous Rx's Medication Instructions Recorded HYDROcodone/APAP 5-325MG [[place] 1 tab PO Q4HR PRN 3 Days #18 tab 04/20/22 5-325] Ondansetron Odt [Zofran ODT] 4 mg PO Q8HR PRN #10 tab 04/20/22 Cephalexin [Keflex] 500 mg PO Q8HR #15 cap 04/25/22 Ketorolac [Toradol] 10 mg PO Q6HR PRN #10 tab 04/25/22 Allergies Allergy/AdvReac Type Severity Reaction Status Date / Time SAI Inhibitors Allergy ANGIOEDEMA Verified 04/25/22 09:36 ofloxacin [From Floxin] AdvReac Unknown Hallucinati Verified 04/25/22 09:36 ons bupropion [From Wellbutrin] AdvReac seizure Verified 04/25/22 09:36 fluoxetine [From Prozac] AdvReac Hallucinati Verified 04/25/22 09:36 ons venlafaxine [From Effexor] AdvReac seizure Verified 04/25/22 09:36 Review of Systems ROS Statement: Those systems with pertinent positive or pertinent negative responses have been documented in the HPI. ROS Other: All systems not noted in ROS Statement are negative. Constitutional: Denies: fever, chills Respiratory: Denies: cough, dyspnea Cardiovascular: Denies: chest pain, palpitations, edema Gastrointestinal: Reports: as per HPI, abdominal pain, nausea, vomiting. Denies: diarrhea, constipation, hematemesis, melena, hematochezia Genitourinary: Reports: frequency. Denies: dysuria, hematuria, abnormal menses Musculoskeletal: Denies: back pain Skin: Denies: rash Neurological: Denies: headache, weakness Past Medical History Past Medical History: Hypertension, Pneumonia Additional Past Medical History / Comment(s): kidney stones History of Any Multi-Drug Resistant Organisms: None Reported Past Surgical History: Bariatric Surgery, Section, Cholecystectomy, Hysterectomy, Orthopedic Surgery Additional Past Surgical History / Comment(s): Left knee replacement Past Psychological History: Anxiety, Depression Smoking Status: Never smoker Past Alcohol Use History: None Reported Past Drug Use History: None Reported General Exam General appearance: alert, in no apparent distress Head exam: Present: atraumatic, normocephalic Eye exam: Present: normal appearance. Absent: scleral icterus, conjunctival injection Neck exam: Present: normal inspection Respiratory exam: Present: normal lung sounds bilaterally. Absent: respiratory distress, wheezes, rales, rhonchi, stridor Cardiovascular Exam: Present: regular rate, normal rhythm, normal heart sounds. Absent: systolic murmur, diastolic murmur, rubs, gallop GI/Abdominal exam: Present: soft. Absent: distended, tenderness, guarding, rebound, rigid, mass, pulsatile mass, hernia Extremities exam: Present: normal inspection, normal capillary refill. Absent: pedal edema, calf tenderness Back exam: Present: normal inspection, CVA tenderness (L). Absent: CVA tenderness (R) Neurological exam: Present: alert Skin exam: Present: warm, dry, intact, normal color. Absent: rash Course Vital Signs 04/20/22 04/20/22 02:24 06:15 Temperature 98.2 F 97.7 F Pulse Rate 77 77 Respiratory 22 16 Rate Blood Pressure 167/107 167/95 O2 Sat by Pulse 97 97 Oximetry Medical Decision Making - Medical Decision Making Patient is 47-year-old woman presenting with colicky left flank pain she states is similar to previous episode kidney stone. She does have established urology care and would like to follow-up there. She has had good relief with symptomatic treatment here. We did discuss further testing including imaging that the patient would rather limit radiation exposure after the discussion of risks and benefits. She will follow with the urologist. We discussed the appropriate further care as well as return parameters. - Lab Data Result diagrams: 04/20/22 02:58 04/20/22 02:58 Lab Results 04/20/22 04/20/22 04/20/22 Range/Units 02:58 02:58 03:32 WBC 12.7 H (3.8-10.6) k/uL RBC 4.63 (3.80-5.40) m/uL Hgb 12.1 (11.4-16.0) gm/dL Hct 38.1 (34.0-46.0) % MCV 82.3 (80.0-100.0) fL MCH 26.1 (25.0-35.0) pg MCHC 31.7 (31.0-37.0) g/dL RDW 15.7 H (11.5-15.5) % Plt Count 274 (150-450) k/uL MPV 7.7 Neutrophils % 82 % Lymphocytes % 11 % Monocytes % 5 % Eosinophils % 1 % Basophils % 0 % Neutrophils # 10.4 H (1.3-7.7) k/uL Lymphocytes # 1.4 (1.0-4.8) k/uL Monocytes # 0.7 (0-1.0) k/uL Eosinophils # 0.2 (0-0.7) k/uL Basophils # 0.0 (0-0.2) k/uL Sodium 137 (137-145) mmol/L Potassium 4.2 (3.5-5.1) mmol/L Chloride 106 (98-107) mmol/L Carbon Dioxide 21 L (22-30) mmol/L Anion Gap 10 mmol/L BUN 13 (7-17) mg/dL Creatinine 0.78 (0.52-1.04) mg/dL Est GFR (CKD-EPI)AfAm >90 (>60 ml/min/1.73 sqM) Est GFR (CKD-EPI)NonAf 90 (>60 ml/min/1.73 sqM) Glucose 171 H (74-99) mg/dL Calcium 9.4 (8.4-10.2) mg/dL Total Bilirubin 0.3 (0.2-1.3) mg/dL AST 24 (14-36) U/L ALT 26 (4-34) U/L Alkaline Phosphatase 115 (38-126) U/L Total Protein 6.8 (6.3-8.2) g/dL Albumin 4.3 (3.5-5.0) g/dL Amylase 49 (30-110) U/L Lipase 66 (23-300) U/L Urine Color Yellow Urine Appearance Clear (Clear) Urine pH 6.5 (5.0-8.0) Ur Specific [place] 1.018 (1.001-1.035) Urine Protein Negative (Negative) Urine Glucose (UA) Negative (Negative) Urine Ketones Negative (Negative) Urine Blood Moderate H (Negative) Urine Nitrite Negative (Negative) Urine Bilirubin Negative (Negative) Urine Urobilinogen <2.0 (<2.0) mg/dL Ur Leukocyte Esterase Negative (Negative) Urine RBC 58 H (0-5) /hpf Urine WBC 1 (0-5) /hpf Ur Squamous Epith Cells 3 (0-4) /hpf Urine Bacteria Rare H (None) /hpf Urine Mucus Rare H (None) /hpf Disposition Clinical Impression: Kidney stone Disposition: HOME SELF-CARE Condition: Good Instructions (If sedation given, give patient instructions): Kidney Stones (ED) Prescriptions: HYDROcodone/APAP 5-325MG [[place] 5-325] 1 tab PO Q4HR PRN 3 Days #18 tab PRN Reason: Pain Ondansetron Odt [Zofran ODT] 4 mg PO Q8HR PRN #10 tab PRN Reason: Nausea Is patient prescribed a controlled substance at d/c from ED?: Yes Referrals: Rosa Stewart MD [Primary Care Provider] - 1-2 days Davin Marcelo MD [STAFF PHYSICIAN] - 1-2 days
[2022-04-20 06:33] VITALS: BP 167/95; RESP 16; TEMP 97.7
== END 2022-04-20 06:15 | disposition home or self-care (01) ==
LOC: EC 02:14
DX: N20.0 Calculus of kidney (principal); I10 Essential (primary) hypertension; Z79.899 Other long term (current) drug therapy; Z91.018 Allergy to other foods; Z88.1 Allergy status to other antibiotic agents; Z88.8 Allergy status to other drugs, medicaments and biological substances
CPT/HCPCS: 36415; 80053; 82150; 83690; 85025; 81001; 99284; 96374; 96375; J2270; J2405

== ENCOUNTER → 2022-04-21 | Outpatient (CLI) | payer MEDICAID ==
--- NOTE | 2022-04-21 09:09 | XR ---
EXAMINATION TYPE: XR KUB DATE OF EXAM: 04/21/2022 8:43 AM CLINICAL HISTORY: Left-sided kidney stone. TECHNIQUE: Single KUB image of the abdomen is obtained. COMPARISON: KUB 05/22/2020. FINDINGS: Scattered gas is seen in non-distended small bowel loops. Cholecystectomy clips in the oute r quadrant. Subtle radiopaque 7 mm density overlying the inferior pole of the right kidney. Subtle ra diopaque 7 mm density overlying the left expected location of the left ureteropelvic junction. Postsu rgical changes from gastric sleeve noted. Gas and fecal material is seen in non-distended colon. The osseous structures are intact. IMPRESSION: Subtle radiopaque densities which may represent renal calculi overlying the inferior pole the right k idney and expected location of the left uteropelvic junction.
== END | disposition home or self-care (01) ==
LOC: RADXRMAIN 08:32
PROVIDERS: ATTEND Urology
DX: N20.0 Calculus of kidney (principal)
CPT/HCPCS: 74018

== ENCOUNTER 2022-04-25 09:01 | Day surgery (SDC) | payer MEDICAID ==
[2022-04-22 10:18] VITALS: BMI 46.2
--- NOTE | 2022-04-22 13:56 | P.HPIHPCON ---
History of Present Illness H&P Date: 04/22/22 Chief Complaint: Left ureteral stone This is a 47-year-old female with history of a 7 mm left-sided proximal stone, she is symptomatic from her stone. Option of left-sided ureteroscopy with holmium laser was discussed with her in detail. Discussed with her the risk which includes but not limited to bleeding, infection, injury to the ureter. Risk of anesthesia was also discussed with her. She understood all the risk and agreed to proceed Consent for Procedure: I have explained the operation/procedure to the patient, including the risks, benefits, side effects, alternative therapies (including not receiving the proposed treatment or service), the likelihood of the patient achieving his/her goals, and potential recuperation problems for the procedure/sedation/analgesia, as well as any blood products, if indicated. I also explained to the patient the risks, benefits and side effects of the alternatives, as well as the risks related to not receiving the proposed procedure, care, treatment, or services. Past Medical History Past Medical History: GERD/Reflux, Hypertension, Osteoarthritis (OA), Pneumonia Additional Past Medical History / Comment(s): kidney stones, environmental allergies, pneumonia aug 2021 post-op, herniated discs., occasional tachycardia. History of Any Multi-Drug Resistant Organisms: None Reported Past Surgical History: Adenoidectomy, Bariatric Surgery, Section, Cholecystectomy, Hysterectomy, Joint Replacement, Orthopedic Surgery, Tonsillectomy Additional Past Surgical History / Comment(s): Left knee replacement, arthroscopy right knee ., lap band 16 yrs ago- no fluid in band per pt. surgery at [facility].) 03/23/22 trigger finger Past Anesthesia/Blood Transfusion Reactions: Postoperative Nausea & Vomiting (PONV) Additional Past Anesthesia/Blood Transfusion Reaction / Comment(s): grandmother-difficulty waking up, slight fever. Past Psychological History: Depression Smoking Status: Never smoker Past Alcohol Use History: Rare Past Drug Use History: None Reported Medications and Allergies Home Medications Medication Instructions Recorded Confirmed Type Metoprolol Succinate (ER) [Toprol 100 mg PO BID 05/07/18 04/22/22 History XL] Erenumab-Aooe [Aimovig 140 mg INJ Q28D 04/21/20 04/22/22 History Autoinjector] Pregabalin [Lyrica] 150 mg PO HS 04/21/20 04/22/22 History Rimegepant Sulfate [Nurtec Odt] 75 mg PO Q48H PRN 04/21/20 04/22/22 History Vortioxetine Hydrobromide 20 mg PO HS 04/21/20 04/22/22 History [Trintellix] Zolpidem [Ambien] 10 mg PO HS 04/21/20 04/22/22 History cloNIDine HCL [Catapres] 0.1 mg PO HS 04/21/20 04/22/22 History ARIPiprazole [Abilify] 2 mg PO HS 03/10/21 04/22/22 History Pantoprazole [Protonix] 40 mg PO BID 03/10/21 04/22/22 History amLODIPine [Norvasc] 5 mg PO HS 03/10/21 04/22/22 History diphenhydrAMINE HCL [Benadryl] 25 mg PO Q4H PRN 03/10/21 04/22/22 History Ibuprofen [Motrin Ib] 800 mg PO Q8H PRN 03/18/22 04/22/22 History HYDROcodone/APAP 5-325MG [[place] 1 tab PO Q4HR PRN 3 Days #18 tab 04/20/22 04/22/22 Rx 5-325] Ondansetron Odt [Zofran ODT] 4 mg PO Q8HR PRN #10 tab 04/20/22 04/22/22 Rx Cyclobenzaprine [Flexeril] 10 mg PO BID 04/22/22 04/22/22 History Tamsulosin [Flomax] 0.4 mg PO HS 04/22/22 04/22/22 History Topiramate [Topamax] 50 mg PO HS 04/22/22 04/22/22 History Allergies Allergy/AdvReac Type Severity Reaction Status Date / Time SAI Inhibitors Allergy ANGIOEDEMA Verified 04/20/22 02:28 ofloxacin [From Floxin] AdvReac Unknown Hallucinati Verified 04/22/22 10:08 ons bupropion [From Wellbutrin] AdvReac seizure Verified 04/22/22 10:07 fluoxetine [From Prozac] AdvReac Hallucinati Verified 04/20/22 02:28 ons venlafaxine [From Effexor] AdvReac seizure Verified 04/22/22 10:07 Surgical - Exam - General no distress, moderate pain - Eyes normal ocular movement, no pale - ENT normal nares, normal mucosa - Respiratory normal expansion, normal respiratory effort - Abdomen Abdomen: soft, non tender Assessment and Plan Assessment: OR for left-sided ureteroscopy, holmium laser lithotripsy, stone basketing and stent insertion
[~2022-04-25 09:01] MED LIST changes: +LIDOCAINE 1% (10MG/ML) FOR IV START INTRADERMA PRN; -Pre Op ABX Message 1 EACH MISC MISCELLANE ONE; -SCOPOLAMINE 1 MG/72 HR PATCH TRANSDERM ONE; +ceFAZolin 3 GM in SODIUM CHLORIDE 0.9% 100 ML IVPB PRN
--- NOTE | 2022-04-25 09:45 | XR ---
EXAMINATION TYPE: XR KUB DATE OF EXAM: 04/25/2022 9:31 AM CLINICAL HISTORY: Preop left renal stone TECHNIQUE: Upright KUB image of the abdomen is obtained. COMPARISON: KUB 04/21/2022. FINDINGS: Scattered gas is seen in non-distended small bowel loops. Gas and fecal material is seen in non-distended colon. This limits evaluation. Redemonstration of 5 mm subtle radiopaque density overl jessica the inferior pole of the right kidney. Previously demonstrated radiopaque density overlying the expected location of the left ureteropelvic junction is not definitively visualized. This may be obsc ured by overlying gastric lap band device. Postsurgical clips in the right upper quadrant. Postsurgic al changes from gastric lap band. No acute osseous adenopathy. IMPRESSION: Stable subtle radiopaque density overlying the inferior pole of the right kidney. Other previously de monstrated radiopaque density in the expected location of left ureteropelvic junction is not definiti vely visualized.
[2022-04-25] MEDS ORDERED: SCOPOLAMINE 1 MG/72 HR PATCH TRANSDERM ONE (10:02)
[2022-04-25] MEDS ORDERED: PROPOFOL 10 MG/ML 20 ML VIAL IV ONE (11:18)
[2022-04-25] MEDS ORDERED: fentaNYL (PF) 50 MCG/ML 2 ML AMP ONE (11:18)
[2022-04-25] MEDS ORDERED: MIDAZOLAM 2 MG/2 ML VIAL ONE (11:18)
[2022-04-25] MEDS ORDERED: SUCCINYLCHOLINE CHLORIDE 200 MG/10 ML VIAL IV ONE (11:18)
[2022-04-25] MEDS ORDERED: LIDOCAINE 2% INJ 20 MG/ML (2 ML VIAL) ONE (11:18)
--- NOTE | 2022-04-25 12:16 | P.OP ---
Date of Procedure: 04/25/22 Preoperative Diagnosis: Left ureteral stone Postoperative Diagnosis: Same Procedure(s) Performed: Cystoscopy, left ureteroscopy, holmium laser lithotripsy and stone basketing Implants: none Anesthesia: NEVILLEA Surgeon: Davin Marcelo Estimated Blood Loss (ml): 5 Pathology: other (left renal pelvis stone) Condition: stable Disposition: PACU Indications for Procedure: This is a 47-year-old female with history of a 7 mm left-sided proximal stone, she is symptomatic from her stone. Option of left-sided ureteroscopy with holmium laser was discussed with her in detail. Discussed with her the risk which includes but not limited to bleeding, infection, injury to the ureter. Risk of anesthesia was also discussed with her. She understood all the risk and agreed to proceed Description of Procedure: Patient brought to the operating room, general anesthesia was induced. He was prepped and draped in sterile fashion and placed in dorsal lithotomy position. s. A cystoscope fitted with a 17-[place]oc[place] sheath was inserted per urethra, cystoscopy was performed whixh showed no abnormality within the bladder, . At this time the cystoscope was withdrawn and a semirigid ureteroscope was inserted and advanced up the left ureteral orifice, the scope was advanced through the ureteral orifice, and the scope was advanced into the proximal ureter which showed no evidence of stone, pullback ureteroscopy was performed which showed no evidence of stones or injury to the ureter, as the ureteroscope was withdrawn a sensor wire was advanced through. Next under fluoroscopy 1113 [place] access sheath was passed over the wire and into the proximal ureter. Next a flexible ureteroscope was inserted through the access sheath, ureteroscopy was performed which showed no evidence of stone along the proximal ureter, renoscopy was performed which showed a stone in the renal pelvis, using the holmium laser the stone was dusted, sizable fragments were removed and sent for analysis. Repeat renoscopy showed no sizable fragments or injury to the kidney. Pullback ureteroscopy was performed which showed no injury to the ureter or any evidence of ureteral stones or fragments, there was no ureteral edema, thus a stent was not placed. The bladder was emptied at the end of the case. Patient tolerated the procedure well was taken to recovery in stable condition
[2022-04-25 12:27] VITALS: TEMP 96.9
[2022-04-25 13:01] VITALS: BP 140/68; PULSE 89; RESP 18
[2022-04-25] MEDS ORDERED: HYDROcodone/APAP 5-325MG 1 EACH TAB ONE (13:28)
[2022-04-25] MEDS ORDERED: HYDROcodone/APAP 5-325MG 1 EACH TAB PO ONE (13:30)
== END 2022-04-25 14:04 | disposition home or self-care (01) ==
LOC: OR 09:01
PROVIDERS: ATTEND Urology
DX: N20.1 Calculus of ureter (principal); I10 Essential (primary) hypertension; M19.90 Unspecified osteoarthritis, unspecified site; F41.9 Anxiety disorder, unspecified; F32.A Depression, unspecified; K21.9 Gastro-esophageal reflux disease without esophagitis; R56.9 Unspecified convulsions; Z88.8 Allergy status to other drugs, medicaments and biological substances; Z88.3 Allergy status to other anti-infective agents; Z80.3 Family history of malignant neoplasm of breast; Z90.49 Acquired absence of other specified parts of digestive tract; Z98.84 Bariatric surgery status
CPT/HCPCS: 82365; 74018; 52353; C1769; J2250; J0330; J1100; J0690; J2405; J3010; J2704; J2001

== ENCOUNTER → 2022-05-25 | Outpatient (CLI) | payer MEDICAID ==
--- NOTE | 2022-05-26 22:22 | XR ---
EXAMINATION TYPE: XR KUB DATE OF EXAM: 05/25/2022 10:38 AM CLINICAL HISTORY: Hematuria. TECHNIQUE: There are 3 supine KUB images of the abdomen are obtained. COMPARISON: Abdominal x-ray April 25, 2022 FINDINGS: Approximately 8 mm calculus projects over the lower pole right kidney. Approximate 18 mm ca lculus projects over the lower pole left kidney. Cholecystectomy clips are redemonstrated. LAP-BAND device again seen. Surgical clip projects over the right pelvis. Elevated right hemidiaphragm redemonstrated. Visualized osseous structures are intact. IMPRESSION: As above.
== END | disposition home or self-care (01) ==
LOC: LABWHC1 09:47
PROVIDERS: ATTEND Urology
DX: N20.1 Calculus of ureter (principal); N20.0 Calculus of kidney
CPT/HCPCS: 36415; 74018; 82310; 83970

== ENCOUNTER → 2022-06-14 | Outpatient (CLI) | payer MEDICAID ==
--- NOTE | 2022-06-14 09:22 | CT ---
EXAMINATION TYPE: CT abdomen pelvis wo con DATE OF EXAM: 06/14/2022 COMPARISON: 04/21/2020 HISTORY: 47-year-old female N20.0 Calculus of kidney. Left greater than right-sided pain CT DLP: 1427 mGycm. Automated exposure control for dose reduction was used. TECHNIQUE: Contiguous axial scanning of the abdomen and pelvis without IV contrast. Coronal and sagit leonila reconstructions performed. FINDINGS: Lack of IV contrast limits assessment of the solid abdominal viscera, lymph nodes, and vascular struc tures. LUNG BASES: Strandy atelectasis in the lower lungs. Heart normal size without pericardial effusion. LIVER/GB: Liver mildly enlarged measuring at least 18 cm. There is mildly diminished attenuation sugg esting possible mild fatty infiltration. Cholecystectomy clips. PANCREAS: No significant abnormality is seen. SPLEEN: No significant abnormality is seen. ADRENALS: No significant abnormality is seen. KIDNEYS: Extrarenal pelvis on the right. There is a solitary 8 mm nonobstructive right renal calculus . On the left, there are approximately 4 nonobstructive punctate calculi measuring up to 3 mm. No hyd ronephrosis on either side. No ureteral calculus is seen. BOWEL: Small to moderate-sized hiatal hernia. Abdomen device remains in place, overall similar orient ation as 2020. No dilated small bowel, free fluid, or free air. Mild overall stool burden. Normal jim endix. Mildly redundant sigmoid colon. No pericolonic inflammatory change. LYMPH NODES: No significant abnormality is seen. PELVIS: Bladder collapsed. Uterus surgically absent. Left ovary visualized. Right ovary not clearly d elineated from adjacent bowel loops. Dropped cholecystectomy clip within the right side of the pelvis . No abnormal fluid collection in the pelvis or pelvic lymphadenopathy. BONES: Mild degenerative change of the hips. Facet arthropathy lower lumbar spine with trace grade 1 anterolisthesis L4-L5. IMPRESSION: 1. Nonobstructing bilateral renal calculi measuring millimeters on the right. A few punctate 3 mm sm aller stones in the left kidney. No ureteral stone or obstructive uropathy. 2. Small to moderate sized hiatal hernia. Lap band device in place.
== END | disposition home or self-care (01) ==
LOC: RADCTMAIN 08:02
PROVIDERS: ATTEND Urology
DX: N20.0 Calculus of kidney (principal)
CPT/HCPCS: 74176

== ENCOUNTER 2022-08-21 20:06 | Inpatient (IN) | payer MEDICAID ==
[2022-08-21] MEDS ORDERED: MORPHINE SULFATE 4 MG/ML SYRINGE IVP STA (21:58)
[2022-08-21] MEDS ORDERED: SODIUM CHLORIDE 0.9% 1,000 ML IV ONE (21:58)
[2022-08-21] MEDS ORDERED: ONDANSETRON 4 MG/2 ML VIAL IVP STA (21:58)
--- NOTE | 2022-08-21 22:22 | ED ---
General Adult HPI - General Chief complaint: Abdominal Pain Stated complaint: abd pain Time Seen by Provider: 08/21/22 21:30 Source: patient Mode of arrival: ambulatory Limitations: no limitations - History of Present Illness Initial comments: This is a 47-year-old female with a past mental history including hypertension and tachycardia presents emergency department for left upper quadrant abdominal pain, nausea and vomiting. The patient stated that after dinner she experienced extreme left upper quadrant abdominal pain that radiated to her back. The patient stated that she also had severe nausea and vomiting secondary to this. The patient stated that she has never had any symptoms like this in the past. The patient is taking medicine for weight loss and has been taken this over the last month and was told to report to the emergency department immediately if she started to experience any severe abdominal pain. The patient denied any trauma to her abdomen and denied any other acute pain or complaints at this time. The patient was actively nauseous on my evaluation. The patient denied any fevers and chills however. - Related Data Home Medications Medication Instructions Recorded Confirmed Metoprolol Succinate (ER) [Toprol 100 mg PO BID 05/07/18 04/25/22 XL] Erenumab-Aooe [Aimovig 140 mg INJ Q28D 04/21/20 04/25/22 Autoinjector] Pregabalin [Lyrica] 150 mg PO HS 04/21/20 04/25/22 Rimegepant Sulfate [Nurtec Odt] 75 mg PO Q48H PRN 04/21/20 04/25/22 Vortioxetine Hydrobromide 20 mg PO HS 04/21/20 04/25/22 [Trintellix] Zolpidem [Ambien] 10 mg PO HS 04/21/20 04/25/22 cloNIDine HCL [Catapres] 0.1 mg PO HS 04/21/20 04/25/22 ARIPiprazole [Abilify] 2 mg PO HS 03/10/21 04/25/22 Pantoprazole [Protonix] 40 mg PO BID 03/10/21 04/25/22 amLODIPine [Norvasc] 5 mg PO HS 03/10/21 04/25/22 diphenhydrAMINE HCL [Benadryl] 25 mg PO Q4H PRN 03/10/21 04/25/22 Ibuprofen [Motrin Ib] 800 mg PO Q8H PRN 03/18/22 04/25/22 Cyclobenzaprine [Flexeril] 10 mg PO BID 04/22/22 04/25/22 Tamsulosin [Flomax] 0.4 mg PO HS 04/22/22 04/25/22 Topiramate [Topamax] 50 mg PO HS 04/22/22 04/25/22 Previous Rx's Medication Instructions Recorded HYDROcodone/APAP 5-325MG [[place] 1 tab PO Q4HR PRN 3 Days #18 tab 04/20/22 5-325] Ondansetron Odt [Zofran ODT] 4 mg PO Q8HR PRN #10 tab 04/20/22 Cephalexin [Keflex] 500 mg PO Q8HR #15 cap 04/25/22 Ketorolac [Toradol] 10 mg PO Q6HR PRN #10 tab 04/25/22 Allergies Allergy/AdvReac Type Severity Reaction Status Date / Time SAI Inhibitors Allergy ANGIOEDEMA Verified 08/21/22 21:30 ofloxacin [From Floxin] AdvReac Unknown Hallucinati Verified 08/21/22 21:30 ons bupropion [From Wellbutrin] AdvReac seizure Verified 08/21/22 21:30 fluoxetine [From Prozac] AdvReac Hallucinati Verified 08/21/22 21:30 ons venlafaxine [From Effexor] AdvReac seizure Verified 08/21/22 21:30 Review of Systems ROS Statement: Those systems with pertinent positive or pertinent negative responses have been documented in the HPI. ROS Other: All systems not noted in ROS Statement are negative. Past Medical History Past Medical History: GERD/Reflux, Hypertension, Osteoarthritis (OA), Pneumonia Additional Past Medical History / Comment(s): kidney stones, environmental allergies, pneumonia aug 2021 post-op, herniated discs., occasional tachycardia. History of Any Multi-Drug Resistant Organisms: None Reported Past Surgical History: Adenoidectomy, Bariatric Surgery, Section, Cholecystectomy, Hysterectomy, Joint Replacement, Orthopedic Surgery, Tonsillectomy Additional Past Surgical History / Comment(s): Left knee replacement, arthroscopy right knee ., lap band 16 yrs ago- no fluid in band per pt. surgery at [facility].) 03/23/22 trigger finger Past Anesthesia/Blood Transfusion Reactions: Postoperative Nausea & Vomiting ( PONV) Additional Past Anesthesia/Blood Transfusion Reaction / Comment(s): grandmother- difficulty waking up, slight fever. Past Psychological History: Depression Smoking Status: Never smoker Past Alcohol Use History: Rare General Exam Limitations: no limitations General appearance: alert, in no apparent distress, obese Head exam: Present: atraumatic, normocephalic, normal inspection Eye exam: Present: normal appearance, PERRL Pupils: Present: normal accommodation ENT exam: Present: normal exam, normal oropharynx, mucous membranes moist Neck exam: Present: normal inspection, full ROM Respiratory exam: Present: normal lung sounds bilaterally Cardiovascular Exam: Present: normal rhythm, tachycardia, normal heart sounds GI/Abdominal exam: Present: distended, tenderness (Tenderness noted to the left upper quadrant, epigastric tenderness) Extremities exam: Present: normal inspection, full ROM Back exam: Present: normal inspection, full ROM Neurological exam: Present: alert, oriented X3, CN II-XII intact Psychiatric exam: Present: normal affect, normal mood Skin exam: Present: warm, dry Course Vital Signs 08/21/22 08/21/22 08/21/22 21:28 22:30 23:30 Temperature 99.2 F Pulse Rate 152 H 126 H 107 H Respiratory 20 18 18 Rate Blood Pressure 173/90 139/90 146/99 O2 Sat by Pulse 98 96 96 Oximetry EKG Findings - EKG Comments: EKG Findings:: An EKG was obtained and was read by myself. EKG showed a rate of 1:30, NH interval 147, QRS duration of 86 and QTC of 357. This EKG showed a sinus tachycardia without any ST segment elevations or depressions noted. The sinus tachycardia is consistent with the patient's past medical history including previous tachycardia being treated medically. Medical Decision Making - Medical Decision Making The patient was seen and evaluated in the emergency department. Physical exam, the patient was resting in bed without any acute distress. Vital signs on admission did show tachycardia but normal blood pressure. Due to the patient's abdominal pain, laboratory workup, CT abdomen and pelvis with contrast was obtained. Medications including Zofran and fluids were given to the patient. Laboratory workup did show a mildly elevated white blood cell count at 16. The remainder laboratory workup was largely within normal limits. CT of the abdomen and pelvis with contrast was obtained and was interpreted by myself. CT abdomen and pelvis with contrast showed dilated large bowel with fluid levels suggestive of ileus. There was no obstructive lesions seen. There is normal appendix. There was a nonobstructing renal calculi present the abnormality of the large bowel appears new compared to the old exam. The patient reevaluation stated that she had still continued pain so she was given a dose of fentanyl. Due to the patient's significant abdominal pain and intractable abdominal pain in the setting of an ileus, the patient will be admitted for further workup and evaluation, the patient's primary care physician was being covered by Dr. Sanchez. He was contacted and did accept the patient for admission at 0024. The patient was understanding of this and all her questions were answered. The patient was admitted in stable condition. - Lab Data Result diagrams: 08/21/22 22:04 08/21/22 22:04 Lab Results 08/21/22 08/21/22 08/21/22 Range/Units 22:04 22:04 22:04 WBC 16.1 H (3.8-10.6) k/uL RBC 5.18 (3.80-5.40) m/uL Hgb 11.0 L (11.4-16.0) gm/dL Hct 37.0 (34.0-46.0) % MCV 71.4 L (80.0-100.0) fL MCH 21.2 L (25.0-35.0) pg MCHC 29.7 L (31.0-37.0) g/dL RDW 19.0 H (11.5-15.5) % Plt Count 398 (150-450) k/uL MPV 7.8 Neutrophils % 63 % Lymphocytes % 26 % Monocytes % 5 % Eosinophils % 2 % Basophils % 1 % Neutrophils # 10.2 H (1.3-7.7) k/uL Lymphocytes # 4.2 (1.0-4.8) k/uL Monocytes # 0.8 (0-1.0) k/uL Eosinophils # 0.4 (0-0.7) k/uL Basophils # 0.1 (0-0.2) k/uL Hypochromasia Marked Anisocytosis Slight Microcytosis Marked Sodium (137-145) mmol/L Potassium (3.5-5.1) mmol/L Chloride (98-107) mmol/L Carbon Dioxide (22-30) mmol/L Anion Gap mmol/L BUN (7-17) mg/dL Creatinine (0.52-1.04) mg/dL Est GFR (CKD-EPI)AfAm (>60 ml/min/1.73 sqM) Est GFR (CKD-EPI)NonAf (>60 ml/min/1.73 sqM) Glucose (74-99) mg/dL Calcium (8.4-10.2) mg/dL Magnesium (1.6-2.3) mg/dL Total Bilirubin (0.2-1.3) mg/dL AST (14-36) U/L ALT (4-34) U/L Alkaline Phosphatase (38-126) U/L Total Protein (6.3-8.2) g/dL Albumin (3.5-5.0) g/dL Lipase (23-300) U/L Urine Color Light Yellow Urine Appearance Clear (Clear) Urine pH 5.5 (5.0-8.0) Ur Specific [place] 1.015 (1.001-1.035) Urine Protein Negative (Negative) Urine Glucose (UA) Negative (Negative) Urine Ketones Negative (Negative) Urine Blood Negative (Negative) Urine Nitrite Negative (Negative) Urine Bilirubin Negative (Negative) Urine Urobilinogen <2.0 (<2.0) mg/dL Ur Leukocyte Esterase Negative (Negative) Urine HCG, Qual Not Detected (Not Detectd) 08/21/22 Range/Units 22:04 WBC (3.8-10.6) k/uL RBC (3.80-5.40) m/uL Hgb (11.4-16.0) gm/dL Hct (34.0-46.0) % MCV (80.0-100.0) fL MCH (25.0-35.0) pg MCHC (31.0-37.0) g/dL RDW (11.5-15.5) % Plt Count (150-450) k/uL MPV Neutrophils % % Lymphocytes % % Monocytes % % Eosinophils % % Basophils % % Neutrophils # (1.3-7.7) k/uL Lymphocytes # (1.0-4.8) k/uL Monocytes # (0-1.0) k/uL Eosinophils # (0-0.7) k/uL Basophils # (0-0.2) k/uL Hypochromasia Anisocytosis Microcytosis Sodium 137 (137-145) mmol/L Potassium 4.9 (3.5-5.1) mmol/L Chloride 109 H (98-107) mmol/L Carbon Dioxide 18 L (22-30) mmol/L Anion Gap 10 mmol/L BUN 15 (7-17) mg/dL Creatinine 0.59 (0.52-1.04) mg/dL Est GFR (CKD-EPI)AfAm >90 (>60 ml/min/1.73 sqM) Est GFR (CKD-EPI)NonAf >90 (>60 ml/min/1.73 sqM) Glucose 127 H (74-99) mg/dL Calcium 9.3 (8.4-10.2) mg/dL Magnesium 1.9 (1.6-2.3) mg/dL Total Bilirubin 0.4 (0.2-1.3) mg/dL AST 35 (14-36) U/L ALT 25 (4-34) U/L Alkaline Phosphatase 134 H (38-126) U/L Total Protein 7.4 (6.3-8.2) g/dL Albumin 4.5 (3.5-5.0) g/dL Lipase 208 (23-300) U/L Urine Color Urine Appearance (Clear) Urine pH (5.0-8.0) Ur Specific [place] (1.001-1.035) Urine Protein (Negative) Urine Glucose (UA) (Negative) Urine Ketones (Negative) Urine Blood (Negative) Urine Nitrite (Negative) Urine Bilirubin (Negative) Urine Urobilinogen (<2.0) mg/dL Ur Leukocyte Esterase (Negative) Urine HCG, Qual (Not Detectd) Disposition Clinical Impression: Intractable abdominal pain, Ileus Disposition: ADMITTED IP TO THIS [facility] Condition: Stable Is patient prescribed a controlled substance at d/c from ED?: No Referrals: Rosa Stewart MD [Primary Care Provider] - 1-2 days Time of Disposition: 00:24 Decision to Admit Reason: Admit from EC Decision Date: 08/22/22 Decision Time: 00:24
[2022-08-21 22:24] LABS: Anisocytosis Slight; Basophils # (A) 0.1 k/uL (0-0.2); Basophils % (A) 1 %; Eosinophils # (A) 0.4 k/uL (0-0.7); Eosinophils % (A) 2 %; Hypochromasia Marked; Lymphocytes # (A) 4.2 k/uL (1.0-4.8); Lymphocytes % (A) 26 %; MCH 21.2 pg (25.0-35.0); MCHC 29.7 g/dL (31.0-37.0); MCV 71.4 fL (80.0-100.0); Mean Platelet Volume 7.8; Microcytosis Marked; Monocytes # (A) 0.8 k/uL (0-1.0); Monocytes % (A) 5 %; Neutrophils # (A) 10.2 k/uL (1.3-7.7); Neutrophils % (A) 63 %; Platelet Count 398 k/uL (150-450); RBC 5.18 m/uL (3.80-5.40); WBC 16.1 k/uL (3.8-10.6)
[2022-08-21 22:32] LABS: Appearance,Urine Clear (Clear); Bilirubin,Urine Negative (Negative); Blood,Urine Negative (Negative); Color,Urine Light Yellow; Glucose,Urine (UA) Negative (Negative); Ketones,Urine Negative (Negative); Leukocyte Esterase,Urine Negative (Negative); Nitrite,Urine Negative (Negative); PH, Urine 5.5 (5.0-8.0); Protein,Urine Negative (Negative); Specific Gravity,Urine 1.015 (1.001-1.035); Urobilinogen,Urine <2.0 mg/dL (<2.0)
[2022-08-21 22:38] LABS: ALT 25 U/L (4-34); AST 35 U/L (14-36); African American GFR (CKD) >90 (>60 ml/min/1.73 sqM); Albumin 4.5 g/dL (3.5-5.0); Alkaline Phosphatase 134 U/L (38-126); Anion Gap 10 mmol/L; Blood Urea Nitrogen 15 mg/dL (7-17); Calcium 9.3 mg/dL (8.4-10.2); Carbon Dioxide 18 mmol/L (22-30); Chloride 109 mmol/L (98-107); Glucose 127 mg/dL (74-99); Lipase 208 U/L (23-300); Magnesium 1.9 mg/dL (1.6-2.3); Non-African American GFR(CKD) >90 (>60 ml/min/1.73 sqM); Potassium 4.9 mmol/L (3.5-5.1); Sodium 137 mmol/L (137-145); Total Bilirubin 0.4 mg/dL (0.2-1.3); Total Protein 7.4 g/dL (6.3-8.2)
[2022-08-21] MEDS ORDERED: fentaNYL (PF) 50 MCG/ML 2 ML AMP IVP STA (23:16)
--- NOTE | 2022-08-21 23:31 | CT ---
EXAMINATION TYPE: CT abdomen pelvis w con DATE OF EXAM: 08/21/2022 COMPARISON: 06/14/2022 HISTORY: LUQ pain CT DLP: 2495.5 mGycm Automated exposure control for dose reduction was used. CONTRAST: Performed with IV Contrast, patient injected with 100 mL of Isovue 300. The lung bases are clear. No pleural effusion. There is gastric bariatric surgery. There is hiatal he rnia. Liver and spleen are intact. Stomach is intact. The bile ducts are not dilated. There are clips from cholecystectomy. There is no adrenal mass. There is 7 mm calculus lower pole right kidney. There is 3 mm calculus late ral left kidney. No retroperitoneal adenopathy. The bladder distends smoothly. No inguinal hernia. No free fluid in the pelvis. No evidence of a pelvic mass. There is distended large bowel with fluid le vels. Appendix is medial and appears normal. There is distended distal small bowel with a few fluid l evels. No transition point seen. No obstructing lesion identified. The lumbar vertebra. Intact with no compression fracture. The facet joints are intact. Bony pelvis is intact. IMPRESSION: Dilated large bowel with fluid levels suggestive of ileus. No obstructing lesion seen. Normal appendi x. Nonobstructing renal calculi. Calculi appear reduced on the left side compared to old exam. Large bow el abnormality appears new compared to old exam
[2022-08-22] MEDS ORDERED: DICYCLOMINE 10 MG/ML 2 ML AMP IM STA (00:24)
[2022-08-22] MEDS ORDERED: ONDANSETRON 4 MG/2 ML VIAL IVP PRN (00:25)
[2022-08-22] MEDS ORDERED: NALOXONE 0.4 MG/ML 1 ML VIAL IV PRN (00:25)
--- NOTE | 2022-08-22 01:53 | P.HPIM ---
History of Present Illness H&P Date: 08/22/22 The patient is a 47-year-old female with a PMH of hypertension, depression, morbid obesity, who presents to the emergency room with complaints of nausea, vomiting, abdominal pain. The patient reports that her symptoms started suddenly this evening at around 5 PM. She states having her normal homemade dinner with right-sided around 4 PM. Reports multiple episodes of nonbloody nonbilious vomiting as well as left-sided abdominal discomfort, 8 out of 10 maximal intensity, aching in nature, radiating throughout her abdomen, worsened with movement. The patient reports that she recently started taking Lariglutide injections for weight loss roughly 30 days ago. Denied experiencing chest discomfort or shortness of breath. Also denied diarrhea, fever, chills. Reported that her pain had improved to a 5 out of 10 at the time of interview. Denies any prior history of such abdominal pain. CT abdomen and pelvis in the emergency room was consistent with ileus with laboratory evaluation remarkable for leukocytosis of 16.1, hemoglobin 11 with MCV 71.4. Review of systems: Pertinent positives and negatives as discussed in HPI, a complete review of systems was performed and all other systems are negative. Physical examination: General: non toxic, no distress, appears at stated age, morbid obesity Derm: no unusual rashes/lesions, warm Head: atraumatic, normocephalic, symmetric Eyes: EOMI, no lid lag, anicteric sclera, pupils equal round reactive to light ENT: Nose and ears atraumatic Neck: No cervical lymphadenopathy, trachea midline, supple Mouth: no lip lesion, mucus membranes moist Cardiovascular: S1S2 reg, no murmur, positive dorsalis pedis pulse bilateral, no edema Lungs: CTA bilateral, no rhonchi, no rales, no accessory muscle use Abdominal: soft, mild left upper quadrant abdominal tenderness, no guarding Ext: muscle strength 5 out of 5 in all 4 extremities grossly, no gross muscle atrophy, no contractures, Neuro: CN II-XI grossly intact, no gross focal neuro deficits Psych: Alert, oriented, appropriate affect Assessment/plan Intractable abdominal pain with nausea and vomiting -Unclear etiology -Nothing by mouth for now -Pain medication -Antiemetics -IV fluids Microcytic anemia -Check anemia panel Chronic conditions: Hypertension, morbid obesity, depression -Continue with home meds DVT prophylaxis -Heparin subcu The patient is admitted with an anticipated greater than 2 midnight stay for evaluation of abdominal pain CODE STATUS: Full Code Discussed with: Patient Anticipated discharge date: 2-[address]: Home Past Medical History Past Medical History: GERD/Reflux, Hypertension, Osteoarthritis (OA), Pneumonia Additional Past Medical History / Comment(s): kidney stones, environmental allergies, pneumonia aug 2021 post-op, herniated discs., occasional tachycardia. History of Any Multi-Drug Resistant Organisms: None Reported Past Surgical History: Adenoidectomy, Bariatric Surgery, Section, Cholecystectomy, Hysterectomy, Joint Replacement, Orthopedic Surgery, Tonsillectomy Additional Past Surgical History / Comment(s): Left knee replacement, arthrosco py right knee ., lap band 16 yrs ago- no fluid in band per pt. surgery at [facility].) 03/23/22 trigger finger Past Anesthesia/Blood Transfusion Reactions: Postoperative Nausea & Vomiting (PONV) Additional Past Anesthesia/Blood Transfusion Reaction / Comment(s): grandmother- difficulty waking up, slight fever. Past Psychological History: Depression Smoking Status: Never smoker Past Alcohol Use History: Rare - Past Family History Mother Family Medical History: Hypertension Medications and Allergies Home Medications Medication Instructions Recorded Confirmed Type Metoprolol Succinate (ER) [Toprol 100 mg PO BID 05/07/18 04/25/22 History XL] Erenumab-Aooe [Aimovig 140 mg INJ Q28D 04/21/20 04/25/22 History Autoinjector] Pregabalin [Lyrica] 150 mg PO HS 04/21/20 04/25/22 History Rimegepant Sulfate [Nurtec Odt] 75 mg PO Q48H PRN 04/21/20 04/25/22 History Vortioxetine Hydrobromide 20 mg PO HS 04/21/20 04/25/22 History [Trintellix] Zolpidem [Ambien] 10 mg PO HS 04/21/20 04/25/22 History cloNIDine HCL [Catapres] 0.1 mg PO HS 04/21/20 04/25/22 History ARIPiprazole [Abilify] 2 mg PO HS 03/10/21 04/25/22 History Pantoprazole [Protonix] 40 mg PO BID 03/10/21 04/25/22 History amLODIPine [Norvasc] 5 mg PO HS 03/10/21 04/25/22 History diphenhydrAMINE HCL [Benadryl] 25 mg PO Q4H PRN 03/10/21 04/25/22 History Ibuprofen [Motrin Ib] 800 mg PO Q8H PRN 03/18/22 04/25/22 History HYDROcodone/APAP 5-325MG [[place] 1 tab PO Q4HR PRN 3 Days #18 tab 04/20/22 04/25/22 Rx 5-325] Ondansetron Odt [Zofran ODT] 4 mg PO Q8HR PRN #10 tab 04/20/22 04/25/22 Rx Cyclobenzaprine [Flexeril] 10 mg PO BID 04/22/22 04/25/22 History Tamsulosin [Flomax] 0.4 mg PO HS 04/22/22 04/25/22 History Topiramate [Topamax] 50 mg PO HS 04/22/22 04/25/22 History Cephalexin [Keflex] 500 mg PO Q8HR #15 cap 04/25/22 Rx Ketorolac [Toradol] 10 mg PO Q6HR PRN #10 tab 04/25/22 Rx Allergies Allergy/AdvReac Type Severity Reaction Status Date / Time SAI Inhibitors Allergy ANGIOEDEMA Verified 08/21/22 21:30 ofloxacin [From Floxin] AdvReac Unknown Hallucinati Verified 08/21/22 21:30 ons bupropion [From Wellbutrin] AdvReac seizure Verified 08/21/22 21:30 fluoxetine [From Prozac] AdvReac Hallucinati Verified 08/21/22 21:30 ons venlafaxine [From Effexor] AdvReac seizure Verified 08/21/22 21:30 Physical Exam Vitals: Vital Signs Temp Pulse Resp BP Pulse Ox 08/21/22 23:30 107 H 18 146/99 96 08/21/22 22:30 126 H 18 139/90 96 08/21/22 21:28 99.2 F 152 H 20 173/90 98 Intake and Output 08/21/22 08/21/22 08/22/22 14:59 22:59 06:59 Other: Weight 119.295 kg Results CBC & Chem 7: 08/21/22 22:04 08/21/22 22:04 Labs: Abnormal Lab Results - Last 24 Hours (Table) 08/21/22 08/21/22 Range/Units 22:04 22:04 WBC 16.1 H (3.8-10.6) k/uL Hgb 11.0 L (11.4-16.0) gm/dL MCV 71.4 L (80.0-100.0) fL MCH 21.2 L (25.0-35.0) pg MCHC 29.7 L (31.0-37.0) g/dL RDW 19.0 H (11.5-15.5) % Neutrophils # 10.2 H (1.3-7.7) k/uL Chloride 109 H (98-107) mmol/L Carbon Dioxide 18 L (22-30) mmol/L Glucose 127 H (74-99) mg/dL Alkaline Phosphatase 134 H (38-126) U/L
[2022-08-22] MEDS: MORPHINE SULFATE 4 MG/ML SYRINGE IV PRN ×4 (03:40→19:43)
[2022-08-22] MEDS: SODIUM CHLORIDE 0.9% 1,000 ML IV SCH ×2 (03:42→13:30)
[2022-08-22 04:23] LABS: Anisocytosis Slight; HCT 33.9 % (34.0-46.0); HGB 9.9 gm/dL (11.4-16.0); Hypochromasia Marked; MCH 21.3 pg (25.0-35.0); MCHC 29.1 g/dL (31.0-37.0); MCV 73.3 fL (80.0-100.0); Mean Platelet Volume 8.5; Microcytosis Moderate; Platelet Count 306 k/uL (150-450); RBC 4.63 m/uL (3.80-5.40); RDW 18.9 % (11.5-15.5); WBC 10.4 k/uL (3.8-10.6)
[2022-08-22] MEDS: HEPARIN SODIUM,PORCINE/PF 5,000 UNIT/0.5 ML SYRINGE SQ SCH ×2 (07:51→17:19)
[2022-08-22] MEDS: PREGABALIN 75 MG CAP PO SCH ×2 (08:30→21:11)
[2022-08-22] MEDS: METOPROLOL SUCCINATE (ER) 100 MG TAB.ER.24H PO SCH ×2 (08:30→21:11)
[2022-08-22 09:23] LABS: % Iron Saturation 4.65 (12.00-45.00); ALT 28 U/L (8-44); AST 22 U/L (13-35); Albumin 4.2 g/dL (3.8-4.9); Albumin/Globulin Ratio 1.91 (1.60-3.17); Alkaline Phosphatase 121 U/L (41-126); BUN/Creat Ratio 23.33 Ratio (12.00-20.00); Calcium 8.8 mg/dL (8.7-10.3); Carbon Dioxide 17.3 mmol/L (20.0-27.5); Chloride 108 mmol/L (96-109); Globulin 2.2 g/dL (1.6-3.3); Glucose 105 mg/dL (70-110); Iron 27 ug/dL (50-170); Potassium 4.3 mmol/L (3.5-5.5); Sodium 138 mmol/L (135-145); Total Bilirubin <0.15 mg/dL (0.30-1.20); Total Iron Binding Capacity 589 ug/dL (228-460); Total Protein 6.4 g/dL (6.2-8.2)
--- NOTE | 2022-08-22 11:23 | P.PN ---
Subjective Progress Note Date: 08/22/22 47-year-old female with a PMH of hypertension, depression, morbid obesity, who presents to the emergency room with complaints of nausea, vomiting, abdominal pain. The patient reports that she recently started taking Lariglutide injections for weight loss roughly [address] abdomen and pelvis in the [facility] room was consistent with ileus with laboratory evaluation remarkable for leukocytosis of 16.1, hemoglobin 11 with MCV 71.4. Patient was seen and examined this morning. No acute events overnight. Patient reports no episodes of nausea or vomiting. She continues to complain of colicky abdominal pain that is relieved with morphine. She did have an episode of diarrhea today. She is passing gas. General: non toxic, no distress, appears at stated age Derm: warm, dry Head: atraumatic, normocephalic, symmetric Eyes: EOMI, no lid lag, anicteric sclera Mouth: no lip lesion, mucus membranes moist Cardiovascular: S1S2 reg, no murmur, positive posterior tibial pulse bilateral, Lungs: CTA bilateral, no rhonchi, no rales , no accessory muscle use Abdominal: soft, nontender to palpation, no guarding, sluggish bowel sounds Ext: no gross muscle atrophy, no edema, no contractures Neuro: no focal neuro deficits Psych: Alert, oriented, appropriate affect #Intractable abdominal pain with nausea and vomiting #Ileus Unclear etiology. Advance diet as tolerated. Morphine as needed for pain. Zofran as needed for nausea and vomiting. Start normal saline at 75 mL/h. Surgery consult. #Leukocytosis Likely reactive. Continue to monitor. #Microcytic anemia Iron studies show iron deficiency anemia. Transfuse if Hg < 7. Start ferrous sulfate. Chronic conditions: Hypertension, morbid obesity, depression Continue with home meds Objective - Vital Signs Vital signs: Vital Signs Temp 99.2 F 08/21/22 21:28 Pulse 105 H 08/22/22 07:51 Resp 18 08/22/22 07:51 BP 136/84 08/22/22 07:51 Pulse Ox 97 08/22/22 07:51 FiO2 Intake & Output 08/21/22 08/22/22 08/22/22 18:59 06:59 18:59 Weight 119.295 kg - Labs CBC & Chem 7: 08/22/22 03:28 08/22/22 03:28 Labs: Abnormal Lab Results - Last 24 Hours (Table) 08/21/22 08/21/22 08/22/22 Range/Units 22:04 22:04 03:28 WBC 16.1 H (3.8-10.6) k/uL Hgb 11.0 L 9.9 L (11.4-16.0) gm/dL Hct 33.9 L (34.0-46.0) % MCV 71.4 L 73.3 L (80.0-100.0) fL MCH 21.2 L 21.3 L (25.0-35.0) pg MCHC 29.7 L 29.1 L (31.0-37.0) g/dL RDW 19.0 H 18.9 H (11.5-15.5) % Neutrophils # 10.2 H (1.3-7.7) k/uL Chloride 109 H (98-107) mmol/L Carbon Dioxide 18 L (22-30) mmol/L BUN/Creatinine Ratio (12.00-20.00) Ratio Glucose 127 H (74-99) mg/dL Iron (50-170) ug/dL TIBC (228-460) ug/dL % Saturation (12.00-45.00) Transferrin (204.0-354.0) mg/dL Ferritin (10.0-291.0) ng/mL Total Bilirubin (0.30-1.20) mg/dL Alkaline Phosphatase 134 H (38-126) U/L 08/22/22 Range/Units 03:28 WBC (3.8-10.6) k/uL Hgb (11.4-16.0) gm/dL Hct (34.0-46.0) % MCV (80.0-100.0) fL MCH (25.0-35.0) pg MCHC (31.0-37.0) g/dL RDW (11.5-15.5) % Neutrophils # (1.3-7.7) k/uL Chloride (98-107) mmol/L Carbon Dioxide 17.3 L (22-30) mmol/L BUN/Creatinine Ratio 23.33 H (12.00-20.00) Ratio Glucose (74-99) mg/dL Iron 27 L (50-170) ug/dL TIBC 589 H (228-460) ug/dL % Saturation 4.65 L (12.00-45.00) Transferrin 421.0 H (204.0-354.0) mg/dL Ferritin 8.0 L (10.0-291.0) ng/mL Total Bilirubin <0.15 L (0.30-1.20) mg/dL Alkaline Phosphatase (38-126) U/L
--- NOTE | 2022-08-22 13:45 | P.GSCN ---
History of Present Illness Consult date: 08/22/22 History of present illness: CHIEF COMPLAINT: Abdominal pain HISTORY OF PRESENT ILLNESS: This is a 47-year-old female who presented to the emergency room with complaints of left upper quadrant abdominal pain that started at 5:30 last night after eating dinner. Her during her was chicken and rice. She reports she had nausea and vomited about 4 times which the emesis contained both food and bile. She reports having a normal bowel movement on Monday she did have an episode of diarrhea this morning. She is having flatus. Her last episode of vomiting was yesterday evening. Patient does have abdominal surgical history which includes a , cholecystectomy hysterectomy and lap band. Patient reports her lap band slips. All of the fluid has been removed from the LAP-BAND. And she is scheduled for a sleeve procedure with Dr. quinteros and Yoko Graff. Patient has been tachycardic with leukocytosis on admission computed tomography scan abdomen and pelvis that showed evidence of ileus. Patient does report she is feeling better this morning. Patient was seen and examined in the ER. Patient denies any prior history of ileus or bowel obstruction. PAST MEDICAL HISTORY: See below PAST SURGICAL HISTORY: See below MEDICATIONS: See below ALLERGIES: See below SOCIAL HISTORY: No illicit drug use. REVIEW OF SYSTEMS: CONSTITUTIONAL: Denies fever or chills. HEENT: Denies blurred vision, vision changes, or eye pain. Denies hemoptysis CARDIOVASCULAR: Denies chest pain or pressure. RESPIRATORY: No shortness of breath. GASTROINTESTINAL: See HPI for pertinent findings HEMATOLOGIC: Denies bleeding disorders. GENITOURINARY: Denies any blood in urine or increased urinary frequency. SKIN: Denies pruitis. Denies rash. PHYSICAL EXAM: VITAL SIGNS: Reviewed GENERAL: Well-developed in no acute distress. HEENT: No sclera icterus. Extraocular movements grossly intact. Moist buccal mucosa. Head is atraumatic, normocephalic. No nasal drainage. ABDOMEN: Soft. Obese. Nondistended. Minimal discomfort with palpation of the left upper quadrant. LAP-BAND port palpable left side of abdomen NEUROLOGIC: Alert and oriented. Cranial nerves II through XII grossly intact. LABORATORY DATA: WBC 16.1 down to 10.4 hemoglobin 11 down to 9.9 platelets 306 Sodium 138 potassium 4.3 creatinine 0.6 Total iron is 27 iron saturation low at 4.6 LFTs normal alk phos is down to 134-121 lipase 208 Urinalysis negative urine HCG not detect IMAGING: Computed tomography scan abdomen and pelvis dilated large bowel with fluid levels suggestive of ileus. rectal lesion seen. Normal appendix. Nonobstructing renal calculi. Calculi appear Reduced on the left side compared to old exam. Large bowel normal. New compared to old exam ASSESSMENT: 1. Left upper quadrant abdominal pain with evidence of ileus on computed tomography scan 2. Prior abdominal surgeries 3. Iron deficiency anemia started on oral Iron per medicine PLAN: -Start clear liquid diet -Encourage patient to ambulate -Continue IV fluid -Continue supportive care Thank you for this consultation Physician Audiometric Technician note has been reviewed by physician. Signing provider agrees with the documented findings, assessment, and plan of care. Past Medical History Past Medical History: GERD/Reflux, Hypertension, Osteoarthritis (OA), Pneumonia Additional Past Medical History / Comment(s): kidney stones, environmental allergies, pneumonia aug 2021 post-op, herniated discs., occasional tachycardia. History of Any Multi-Drug Resistant Organisms: None Reported Past Surgical History: Adenoidectomy, Bariatric Surgery, Section, Cholecystectomy, Hysterectomy, Joint Replacement, Orthopedic Surgery, Tonsillectomy Additional Past Surgical History / Comment(s): Left knee replacement, arthroscopy right knee ., lap band 16 yrs ago- no fluid in band per pt. surgery at [facility].) 03/23/22 trigger finger Past Anesthesia/Blood Transfusion Reactions: Postoperative Nausea & Vomiting (PONV) Additional Past Anesthesia/Blood Transfusion Reaction / Comm: grandmother- difficulty waking up, slight fever. Past Psychological History: Depression Smoking Status: Never smoker Past Alcohol Use History: Rare - Past Family History Mother Family Medical History: Hypertension Medications and Allergies Home Medications Medication Instructions Recorded Confirmed Type Metoprolol Succinate (ER) [Toprol 100 mg PO BID 05/07/18 08/22/22 History XL] Erenumab-Aooe [Aimovig 140 mg SQ Q28D 04/21/20 08/22/22 History Autoinjector] Pregabalin [Lyrica] 150 mg PO BID 04/21/20 08/22/22 History Rimegepant Sulfate [Nurtec Odt] 75 mg PO Q48H PRN 04/21/20 08/22/22 History Vortioxetine Hydrobromide 20 mg PO HS 04/21/20 08/22/22 History [Trintellix] Zolpidem [Ambien] 10 mg PO HS 04/21/20 08/22/22 History cloNIDine HCL [Catapres] 0.1 mg PO HS 04/21/20 08/22/22 History ARIPiprazole [Abilify] 2 mg PO HS 03/10/21 08/22/22 History amLODIPine [Norvasc] 5 mg PO HS 03/10/21 08/22/22 History diphenhydrAMINE HCL [Benadryl] 25 mg PO Q4H PRN 03/10/21 08/22/22 History Cyclobenzaprine [Flexeril] 10 mg PO BID PRN 04/22/22 08/22/22 History Liraglutide [Saxenda] 3 mg SQ DAILY 08/22/22 08/22/22 History Meloxicam [Mobic] 15 mg PO DAILY 08/22/22 08/22/22 History Topiramate [Topamax] 50 mg PO HS 08/22/22 08/22/22 History Allergies Allergy/AdvReac Type Severity Reaction Status Date / Time SAI Inhibitors Allergy ANGIOEDEMA Verified 08/22/22 07:49 ofloxacin [From Floxin] AdvReac Unknown Hallucinati Verified 08/22/22 07:49 ons bupropion [From Wellbutrin] AdvReac seizure Verified 08/22/22 07:49 fluoxetine [From Prozac] AdvReac Hallucinati Verified 08/22/22 07:49 ons venlafaxine [From Effexor] AdvReac seizure Verified 08/22/22 07:49 Surgical - Exam Vital Signs Temp Pulse Resp BP Pulse Ox 99.2 F 152 H 20 173/90 98 08/21/22 21:28 08/21/22 21:28 08/21/22 21:28 08/21/22 21:28 08/21/22 21:28 Results - Labs 08/22/22 03:28 08/22/22 03:28 Abnormal Lab Results - Last 24 Hours (Table) 08/21/22 08/21/22 08/22/22 Range/Units 22:04 22:04 03:28 WBC 16.1 H (3.8-10.6) k/uL Hgb 11.0 L 9.9 L (11.4-16.0) gm/dL Hct 33.9 L (34.0-46.0) % MCV 71.4 L 73.3 L (80.0-100.0) fL MCH 21.2 L 21.3 L (25.0-35.0) pg MCHC 29.7 L 29.1 L (31.0-37.0) g/dL RDW 19.0 H 18.9 H (11.5-15.5) % Neutrophils # 10.2 H (1.3-7.7) k/uL Chloride 109 H (98-107) mmol/L Carbon Dioxide 18 L (22-30) mmol/L BUN/Creatinine Ratio (12.00-20.00) Ratio Glucose 127 H (74-99) mg/dL Iron (50-170) ug/dL TIBC (228-460) ug/dL % Saturation (12.00-45.00) Transferrin (204.0-354.0) mg/dL Ferritin (10.0-291.0) ng/mL Total Bilirubin (0.30-1.20) mg/dL Alkaline Phosphatase 134 H (38-126) U/L 08/22/22 Range/Units 03:28 WBC (3.8-10.6) k/uL Hgb (11.4-16.0) gm/dL Hct (34.0-46.0) % MCV (80.0-100.0) fL MCH (25.0-35.0) pg MCHC (31.0-37.0) g/dL RDW (11.5-15.5) % Neutrophils # (1.3-7.7) k/uL Chloride (98-107) mmol/L Carbon Dioxide 17.3 L (22-30) mmol/L BUN/Creatinine Ratio 23.33 H (12.00-20.00) Ratio Glucose (74-99) mg/dL Iron 27 L (50-170) ug/dL TIBC 589 H (228-460) ug/dL % Saturation 4.65 L (12.00-45.00) Transferrin 421.0 H (204.0-354.0) mg/dL Ferritin 8.0 L (10.0-291.0) ng/mL Total Bilirubin <0.15 L (0.30-1.20) mg/dL Alkaline Phosphatase (38-126) U/L Diabetes panel 08/21/22 08/22/22 Range/Units 22:04 03:28 Sodium 137 138 (137-145) mmol/L Potassium 4.9 4.3 (3.5-5.1) mmol/L Chloride 109 H 108 (98-107) mmol/L Carbon Dioxide 18 L 17.3 L (22-30) mmol/L BUN 15 14.0 (7-17) mg/dL Creatinine 0.59 0.6 (0.52-1.04) mg/dL Glucose 127 H 105 (74-99) mg/dL Calcium 9.3 8.8 (8.4-10.2) mg/dL AST 35 22 (14-36) U/L ALT 25 28 (4-34) U/L Alkaline Phosphatase 134 H 121 (38-126) U/L Total Protein 7.4 6.4 (6.3-8.2) g/dL Albumin 4.5 4.2 (3.5-5.0) g/dL Calcium panel 08/21/22 08/22/22 Range/Units 22:04 03:28 Calcium 9.3 8.8 (8.4-10.2) mg/dL Albumin 4.5 4.2 (3.5-5.0) g/dL Pituitary panel 08/21/22 08/22/22 Range/Units 22:04 03:28 Sodium 137 138 (137-145) mmol/L Potassium 4.9 4.3 (3.5-5.1) mmol/L Chloride 109 H 108 (98-107) mmol/L Carbon Dioxide 18 L 17.3 L (22-30) mmol/L BUN 15 14.0 (7-17) mg/dL Creatinine 0.59 0.6 (0.52-1.04) mg/dL Glucose 127 H 105 (74-99) mg/dL Calcium 9.3 8.8 (8.4-10.2) mg/dL Adrenal panel 08/21/22 08/22/22 Range/Units 22:04 03:28 Sodium 137 138 (137-145) mmol/L Potassium 4.9 4.3 (3.5-5.1) mmol/L Chloride 109 H 108 (98-107) mmol/L Carbon Dioxide 18 L 17.3 L (22-30) mmol/L BUN 15 14.0 (7-17) mg/dL Creatinine 0.59 0.6 (0.52-1.04) mg/dL Glucose 127 H 105 (74-99) mg/dL Calcium 9.3 8.8 (8.4-10.2) mg/dL Total Bilirubin 0.4 <0.15 L (0.2-1.3) mg/dL AST 35 22 (14-36) U/L ALT 25 28 (4-34) U/L Alkaline Phosphatase 134 H 121 (38-126) U/L Total Protein 7.4 6.4 (6.3-8.2) g/dL Albumin 4.5 4.2 (3.5-5.0) g/dL
[2022-08-22] MEDS: CALCIUM CARBONATE 500 MG CHEWABLE PO PRN ×2 (15:30→19:42)
[2022-08-22] MEDS: FERROUS SULFATE 325 MG TAB PO SCH (17:19)
[2022-08-22] MEDS: TOPIRAMATE 25 MG TAB PO SCH (21:11)
[2022-08-22] MEDS: ARIPiprazole 2 MG TAB PO SCH (21:11)
[2022-08-23] MEDS: HEPARIN SODIUM,PORCINE/PF 5,000 UNIT/0.5 ML SYRINGE SQ SCH ×4 (00:12→23:30)
[2022-08-23] MEDS: ZOLPIDEM 5 MG TAB PO SCH ×2 (01:22→21:28)
[2022-08-23] MEDS: SODIUM CHLORIDE 0.9% 1,000 ML IV SCH ×2 (04:08→16:09)
[2022-08-23] MEDS: PREGABALIN 75 MG CAP PO SCH ×2 (10:01→21:27)
[2022-08-23] MEDS: FERROUS SULFATE 325 MG TAB PO SCH ×2 (10:01→16:29)
[2022-08-23] MEDS: CALCIUM CARBONATE 500 MG CHEWABLE PO PRN (10:01)
[2022-08-23] MEDS: METOPROLOL SUCCINATE (ER) 100 MG TAB.ER.24H PO SCH ×2 (10:06→21:27)
--- NOTE | 2022-08-23 13:06 | P.PN ---
Subjective Progress Note Date: 08/23/22 CHIEF COMPLAINT: Abdominal pain HISTORY OF PRESENT ILLNESS: Surgical service is following in regards to patient's ileus. Patient is having bowel movements. Her abdominal pain has resolved. She denies any nausea vomiting. Her BMs are small and loose. Afebrile. White count has normalized from 16-10.4. Hemoglobin 9.9 platelets 306 PHYSICAL EXAM: VITAL SIGNS: Reviewed. GENERAL: Well-developed in no acute distress. HEENT: No sclera icterus. Extraocular movements grossly intact. Moist buccal m ucosa. Head is atraumatic, normocephalic. ABDOMEN: Soft. Nondistended. Nontender. NEUROLOGIC: Alert and oriented. Cranial nerves II through XII grossly intact. ASSESSMENT: 1. Abdominal ileus possibly due to dehydration PLAN: -Patient can be discharged from surgical standpoint if tolerating advancement of diet -Advance diet to full liquids -Continue supportive care Physician Medical Assisting Program Director note has been reviewed by physician. Signing provider agrees with the documented findings, assessment, and plan of care. Objective - Vital Signs Vital signs: Vital Signs Temp 98.9 F 08/23/22 11:30 Pulse 81 08/23/22 11:30 Resp 16 08/23/22 11:30 BP 116/75 08/23/22 11:30 Pulse Ox 97 08/23/22 11:30 FiO2 Intake & Output 08/22/22 08/23/22 08/23/22 18:59 06:59 18:59 Intake Total 300 480 Balance 300 480 Weight 119.295 kg Intake: Oral 300 480 - Labs CBC & Chem 7: 08/22/22 03:28 08/22/22 03:28
--- NOTE | 2022-08-23 14:27 | P.PN ---
Subjective Progress Note Date: 08/23/22 47-year-old female with a PMH of hypertension, depression, morbid obesity, who presents to the emergency room with complaints of nausea, vomiting, abdominal pain. The patient reports that she recently started taking Lariglutide injections for weight loss roughly [address] [facility] was consistent with ileus with laboratory evaluation remarkable for leukocytosis of 16.1, hemoglobin 11 with MCV 71.4. Patient was seen and examined this morning. She was started on FLD today. She continues to complain of colicky abdominal pain after diet was advanced. She did have 5 episodes of diarrhea today. General: non toxic, no distress, appears at stated age Derm: warm, dry Head: atraumatic, normocephalic, symmetric Eyes: EOMI, no lid lag, anicteric sclera Mouth: no lip lesion, mucus membranes moist Cardiovascular: S1S2 reg, no murmur, positive posterior tibial pulse bilateral, Lungs: CTA bilateral, no rhonchi, no rales , no accessory muscle use Abdominal: soft, nontender to palpation, no guarding, sluggish bowel sounds Ext: no gross muscle atrophy, no edema, no contractures Neuro: no focal neuro deficits Psych: Alert, oriented, appropriate affect #Intractable abdominal pain with nausea and vomiting #Ileus Unclear etiology. Advance diet as tolerated. Morphine as needed for pain. Zofran as needed for nausea and vomiting. Increase IV hydration to NS 100 cc/hr. Surgery consult. #Leukocytosis Likely reactive. Continue to monitor. #Microcytic anemia Iron studies show iron deficiency anemia. Transfuse if Hg < 7. Start ferrous sulfate. Chronic conditions: Hypertension, morbid obesity, depression Continue with home meds Objective - Vital Signs Vital signs: Vital Signs Temp 98.9 F 08/23/22 11:30 Pulse 81 08/23/22 11:30 Resp 16 08/23/22 11:30 BP 116/75 08/23/22 11:30 Pulse Ox 97 08/23/22 11:30 FiO2 Intake & Output 08/22/22 08/23/22 08/23/22 18:59 06:59 18:59 Intake Total 300 480 Balance 300 480 Weight 119.295 kg Intake: Oral 300 480 Other: # Voids 1 # Bowel Movements 1 - Labs CBC & Chem 7: 08/22/22 03:28 08/22/22 03:28
[2022-08-23] MEDS: MORPHINE SULFATE 4 MG/ML SYRINGE IV PRN ×2 (18:30→22:30)
[2022-08-23] MEDS: ARIPiprazole 2 MG TAB PO SCH (21:28)
[2022-08-23] MEDS: TOPIRAMATE 25 MG TAB PO SCH (21:28)
[2022-08-24] MEDS: SODIUM CHLORIDE 0.9% 1,000 ML IV SCH ×2 (02:42→11:25)
[2022-08-24] MEDS: MORPHINE SULFATE 4 MG/ML SYRINGE IV PRN ×2 (02:53→11:25)
[2022-08-24] MEDS: CALCIUM CARBONATE 500 MG CHEWABLE PO PRN (02:53)
[2022-08-24] MEDS: FERROUS SULFATE 325 MG TAB PO SCH (05:50)
[2022-08-24 08:28] LABS: Anisocytosis Slight; HCT 31.5 % (34.0-46.0); HGB 9.5 gm/dL (11.4-16.0); Hypochromasia Marked; MCH 21.6 pg (25.0-35.0); MCV 71.9 fL (80.0-100.0); Mean Platelet Volume 8.4; Microcytosis Marked; Platelet Count 247 k/uL (150-450); RBC 4.38 m/uL (3.80-5.40); WBC 6.8 k/uL (3.8-10.6)
[2022-08-24] MEDS: HEPARIN SODIUM,PORCINE/PF 5,000 UNIT/0.5 ML SYRINGE SQ SCH ×2 (08:31→16:51)
[2022-08-24] MEDS: PREGABALIN 75 MG CAP PO SCH (08:31)
[2022-08-24] MEDS: METOPROLOL SUCCINATE (ER) 100 MG TAB.ER.24H PO SCH (08:35)
[2022-08-24 08:37] LABS: African American GFR (CKD) >90 (>60 ml/min/1.73 sqM); Anion Gap 6 mmol/L; Blood Urea Nitrogen 5 mg/dL (7-17); Calcium 8.6 mg/dL (8.4-10.2); Carbon Dioxide 23 mmol/L (22-30); Chloride 109 mmol/L (98-107); Glucose 138 mg/dL (74-99); Non-African American GFR(CKD) >90 (>60 ml/min/1.73 sqM); Potassium 3.6 mmol/L (3.5-5.1); Sodium 138 mmol/L (137-145)
[2022-08-24 13:47] VITALS: BP 108/65; PULSE 77; RESP 16; TEMP 99
[2022-08-24] MEDS: IOPAMIDOL CONTRAST (ORAL USE) VIAL PO PRN ×2 (13:47→14:46)
--- NOTE | 2022-08-24 14:04 | P.PN ---
Subjective Progress Note Date: 08/24/22 47-year-old female with a PMH of hypertension, depression, morbid obesity, who presents to the emergency room with complaints of nausea, vomiting, abdominal pain. The patient reports that she recently started taking Lariglutide injections for weight loss roughly [address] [facility] with [facility] with laboratory evaluation remarkable for leukocytosis of 16.1, hemoglobin 11 with MCV 71.4. Patient was seen and examined this morning. She was started on FLD yesterday. She continues to complain of colicky abdominal pain after diet was advanced. She did have 8 episodes of diarrhea yesterday. Plans for repeat CT later today. She has been able to tolerate oatmeal so far. General: non toxic, no distress, appears at stated age Derm: warm, dry Head: atraumatic, normocephalic, symmetric Eyes: EOMI, no lid lag, anicteric sclera Mouth: no lip lesion, mucus membranes moist Cardiovascular: S1S2 reg, no murmur, positive posterior tibial pulse bilateral, Lungs: CTA bilateral, no rhonchi, no rales , no accessory muscle use Abdominal: soft, nontender to palpation, no guarding, sluggish bowel sounds Ext: no gross muscle atrophy, no edema, no contractures Neuro: no focal neuro deficits Psych: Alert, oriented, appropriate affect #Intractable abdominal pain with nausea and vomiting #Ileus Unclear etiology. Advance diet as tolerated. Morphine as needed for pain. Zofran as needed for nausea and vomiting. Increase IV hydration to NS 100 cc/hr. Follow repeat CT AP. Surgery consult. #Leukocytosis Likely reactive. Continue to monitor. #Microcytic anemia Iron studies show iron deficiency anemia. Transfuse if Hg < 7. Start ferrous sulfate. Chronic conditions: Hypertension, morbid obesity, depression Continue with home meds Objective - Vital Signs Vital signs: Vital Signs Temp 99 F 08/24/22 13:00 Pulse 77 08/24/22 13:00 Resp 16 08/24/22 13:00 BP 108/65 08/24/22 13:00 Pulse Ox 98 08/24/22 13:00 FiO2 Intake & Output 08/23/22 08/24/22 08/24/22 18:59 06:59 18:59 Other: # Voids 1 3 # Bowel Movements 1 - Labs CBC & Chem 7: 08/24/22 08:08 08/24/22 08:08 Labs: Abnormal Lab Results - Last 24 Hours (Table) 08/24/22 08/24/22 Range/Units 08:08 08:08 Hgb 9.5 L (11.4-16.0) gm/dL Hct 31.5 L (34.0-46.0) % MCV 71.9 L (80.0-100.0) fL MCH 21.6 L (25.0-35.0) pg MCHC 30.0 L (31.0-37.0) g/dL RDW 19.0 H (11.5-15.5) % Chloride 109 H (98-107) mmol/L BUN 5 L (7-17) mg/dL Glucose 138 H (74-99) mg/dL
--- NOTE | 2022-08-24 14:17 | P.PN ---
Subjective Progress Note Date: 08/24/22 CHIEF COMPLAINT: Abdominal pain HISTORY OF PRESENT ILLNESS: Surgical service is following in regards to patient's ileus. Patient started on a full liquid diet yesterday. Patient reports about 20 minutes after eating she had left upper quadrant abdominal pain rated at 6 out of 10. It is similar to the pain that brought her into the hospital and she started to have watery stools. Patient reports having about 17 watery stools after eating yesterday. She had 2 watery stools this morning. No blood in the stools. Denies any nausea or vomiting. The left upper quadrant pain is more of a discomfort today. Her last colonoscopy was about a year ago. Her mother does have a history of ulcerative colitis. Afebrile. WBC 6.8 hemoglobin is 9.5 platelets 247 sodium was 138 potassium 3.6 creatinine 0.55 Patient seen and examined with Dr. Newton PHYSICAL EXAM: VITAL SIGNS: Reviewed. GENERAL: Well-developed in no acute distress. HEENT: No sclera icterus. Extraocular movements grossly intact. Moist buccal mucosa. Head is atraumatic, normocephalic. ABDOMEN: Soft. Nondistended. Mild discomfort with palpation left upper quadrant NEURO: Alert and oriented. Cranial nerves II through XII grossly intact. ASSESSMENT: 1. Left upper quadrant abdominal pain with diarrhea 2. Abdominal ileus PLAN: -Computed tomography scan abdomen and pelvis with oral contrast ordered for further wish patient's abdominal pain and diarrhea -Continue supportive care -Continue full liquid diet -Continue IV fluids Physician Assembling Fabricator note has been reviewed by physician. Signing provider agrees with the documented findings, assessment, and plan of care. Objective - Vital Signs Vital signs: Vital Signs Temp 99 F 08/24/22 13:00 Pulse 77 08/24/22 13:00 Resp 16 08/24/22 13:00 BP 108/65 08/24/22 13:00 Pulse Ox 98 08/24/22 13:00 FiO2 Intake & Output 08/23/22 08/24/22 08/24/22 18:59 06:59 18:59 Other: # Voids 1 3 # Bowel Movements 1 - Labs CBC & Chem 7: 08/24/22 08:08 08/24/22 08:08 Labs: Abnormal Lab Results - Last 24 Hours (Table) 08/24/22 08/24/22 Range/Units 08:08 08:08 Hgb 9.5 L (11.4-16.0) gm/dL Hct 31.5 L (34.0-46.0) % MCV 71.9 L (80.0-100.0) fL MCH 21.6 L (25.0-35.0) pg MCHC 30.0 L (31.0-37.0) g/dL RDW 19.0 H (11.5-15.5) % Chloride 109 H (98-107) mmol/L BUN 5 L (7-17) mg/dL Glucose 138 H (74-99) mg/dL
--- NOTE | 2022-08-24 15:42 | CT ---
EXAMINATION TYPE: CT abdomen pelvis wo con DATE OF EXAM: 08/24/2022 HISTORY: LUQ pain CT DLP: 1392.9 mGycm. Automated Exposure Control for Dose Reduction was Utilized. TECHNIQUE: CT scan of the abdomen and pelvis is performed with oral but without IV contrast. COMPARISON: Prior CT 3 days ago and older studies FINDINGS: Within the limitations of a non-contrast study, the following observations are made. LUNG BASES: Mild right basilar linear scarring. LIVER/GB: Cholecystectomy clips are redemonstrated. PANCREAS: No significant abnormality is seen. SPLEEN: No significant abnormality is seen. ADRENALS: No significant abnormality is seen. KIDNEYS: Scattered small renal calculi bilaterally redemonstrated. Approximately 8 tiny left renal ca lculi all measuring up to 3 mm in size image 60. There is a single larger 8 mm lower pole right renal calculus image 68. No hydronephrosis or obstructing ureteral calculi bilaterally. BOWEL: Oral contrast reaches level of the transverse colon. No suspicious small or large bowel dilata tion. Lap band device epigastric region is stable and satisfactory in position. Normal-appearing appe ndix redemonstrated. Fluid in the rectum is noted on current study. Improved air-fluid levels in tesha l prominence noted from prior study. GENITAL ORGANS: Uterus surgically absent or markedly atrophic. LYMPH NODES: No greater than 1cm abdominal or pelvic lymph nodes are appreciated. OSSEOUS STRUCTURES: No significant abnormality is seen. OTHER: No significant additional abnormality is seen. IMPRESSION: Possible mild uncomplicated distal colitis and/or diarrhea. Correlate clinically. Resolve d ileus noted. Otherwise no suspicious new or acute findings. No bowel obstruction. Bilateral nephrol ithiasis redemonstrated.
--- NOTE | 2022-08-24 18:47 | P.DS ---
Providers Date of admission: 08/22/22 00:25 Expected date of discharge: 08/24/22 Attending physician: Tez Sanchez MD Consults: 08/22/22 08:05 Consult Physician Routine Consulting Provider: Jose Luis Newton Consult Reason/Comments: ileus Do you want consulting provider notified?: Yes Primary care physician: [facility] Course: 47-year-old female with a PMH of hypertension, depression, morbid obesity, who presents to the emergency room with complaints of nausea, vomiting, abdominal pain. The patient reports that she recently started taking Lariglutide inject ions for weight loss roughly [address] abdomen and pelvis in the emergency room was consistent with ileus with laboratory evaluation remarkable for leukocytosis of 16.1, hemoglobin 11 with MCV 71.4. Surgery was consulted for management of this patient. Patient was placed NPO and diet was advanced as tolerated. She has some diarrhea on full liquid diet. Repeat CT with oral contrast showed mild uncomplicated distal colitis with resolved ileus. Patient was seen and examined. Tolatering breakfast. She has mild cramping. No bowel movements this morning. Pertinent studies include CT AP. General: non toxic, no distress, appears at stated age Derm: warm, dry Head: atraumatic, normocephalic, symmetric Eyes: EOMI, no lid lag, anicteric sclera Mouth: no lip lesion, mucus membranes moist Cardiovascular: S1S2 reg, no murmur, positive posterior tibial pulse bilateral, Lungs: CTA bilateral, no rhonchi, no rales , no accessory muscle use Abdominal: soft, nontender to palpation, no guarding, sluggish bowel sounds Ext: no gross muscle atrophy, no edema, no contractures Neuro: no focal neuro deficits Psych: Alert, oriented, appropriate affect Discharge Diagnosis: #Intractable abdominal pain with nausea and vomiting #Ileus #Leukocytosis #Microcytic anemia Chronic conditions: Hypertension, morbid obesity, depression She is discharged home with the following instructions: Diet: Full liquid diet and advance. Come back to the ED for worsening abdominal pain, intractable N/V Follow up with surgery within 1 week of discharge. You will need a colonoscopy after resolution of your colitis. This complex discharge took 35 minutes to complete. Patient Condition at Discharge: Stable Plan - Discharge Summary New Discharge Prescriptions: New Ferrous Sulfate [Iron (65 MG Elemental)] 325 mg PO BID-W/MEALS #60 tab Continue Metoprolol Succinate (ER) [Toprol XL] 100 mg PO BID Zolpidem [Ambien] 10 mg PO HS Vortioxetine Hydrobromide [Trintellix] 20 mg PO HS Rimegepant Sulfate [Nurtec Odt] 75 mg PO Q48H PRN PRN Reason: Migraine Headache Pregabalin [Lyrica] 150 mg PO BID Erenumab-Aooe [Aimovig Autoinjector] 140 mg SQ Q28D ARIPiprazole [Abilify] 2 mg PO HS Meloxicam [Mobic] 15 mg PO DAILY Liraglutide [Saxenda] 3 mg SQ DAILY Topiramate [Topamax] 50 mg PO HS amLODIPine [Norvasc] 5 mg PO HS Discontinued cloNIDine HCL [Catapres] 0.1 mg PO HS diphenhydrAMINE HCL [Benadryl] 25 mg PO Q4H PRN PRN Reason: Allergy Symptoms Cyclobenzaprine [Flexeril] 10 mg PO BID PRN PRN Reason: Muscle Spasm Discharge Medication List Metoprolol Succinate (ER) [Toprol XL] 100 mg PO BID 05/07/18 [History] Erenumab-Aooe [Aimovig Autoinjector] 140 mg SQ Q28D 04/21/20 [History] Pregabalin [Lyrica] 150 mg PO BID 04/21/20 [History] Rimegepant Sulfate [Nurtec Odt] 75 mg PO Q48H PRN 04/21/20 [History] Vortioxetine Hydrobromide [Trintellix] 20 mg PO HS 04/21/20 [History] Zolpidem [Ambien] 10 mg PO HS 04/21/20 [History] ARIPiprazole [Abilify] 2 mg PO HS 03/10/21 [History] amLODIPine [Norvasc] 5 mg PO HS 03/10/21 [History] Liraglutide [Saxenda] 3 mg SQ DAILY 08/22/22 [History] Meloxicam [Mobic] 15 mg PO DAILY 08/22/22 [History] Topiramate [Topamax] 50 mg PO HS 08/22/22 [History] Ferrous Sulfate [Iron (65 MG Elemental)] 325 mg PO BID-W/MEALS #60 tab 08/23/22 [Rx] Follow up Appointment(s)/Referral(s): Rosa Stewart MD [Primary Care Provider] - 1-2 days Jose Luis Newton MD [STAFF PHYSICIAN] - 1 Week Patient Instructions/Handouts: Ileus (DC) Activity/Diet/Wound Care/Special Instructions: Diet: Full liquid diet and advance. Come back to the ED for worsening abdominal pain, intractable N/V Follow up with surgery within 1 week of discharge. You will need a colonoscopy after resolution of your colitis. Discharge Disposition: HOME SELF-CARE
== END 2022-08-24 17:52 | disposition home or self-care (01) | DRG 389 ==
LOC: EC 20:06 → 4SSUR 08-22 00:25 → 5NMEDONC 08-22 13:25
PROVIDERS: ADMIT Internal Medicine; ATTEND Internal Medicine
DX: K56.7 Ileus, unspecified (principal); Z68.44 Body mass index [BMI] 60.0-69.9, adult; R11.2 Nausea with vomiting, unspecified; N20.0 Calculus of kidney; D50.9 Iron deficiency anemia, unspecified; R00.0 Tachycardia, unspecified; E66.01 Morbid (severe) obesity due to excess calories; J30.2 Other seasonal allergic rhinitis; F32.A Depression, unspecified; E86.0 Dehydration; I10 Essential (primary) hypertension; K52.9 Noninfective gastroenteritis and colitis, unspecified; Z98.84 Bariatric surgery status; Z79.1 Long term (current) use of non-steroidal anti-inflammatories (NSAID); Z79.899 Other long term (current) drug therapy; Z82.49 Family history of ischemic heart disease and other diseases of the circulatory system; Z87.442 Personal history of urinary calculi; Z90.710 Acquired absence of both cervix and uterus; Z96.652 Presence of left artificial knee joint; Z88.8 Allergy status to other drugs, medicaments and biological substances; Z87.01 Personal history of pneumonia (recurrent); Z90.49 Acquired absence of other specified parts of digestive tract
CPT/HCPCS: 36415; 74176; 74177; 80048; 80053; 81003; 81025; 82728; 83540; 83550; 83690; 83735; 85025; 85027; 93005; 96361; 96372; 96374; 96375; 96376; 99285

== ENCOUNTER 2022-08-29 07:32 | Emergency (ER) | payer MEDICAID ==
[2022-08-29 07:51] VITALS: RESP 18
[2022-08-29] MEDS ORDERED: ONDANSETRON 4 MG/2 ML VIAL IVP STA (08:16)
[2022-08-29] MEDS ORDERED: PANTOPRAZOLE 40 MG/10 ML VIAL IVP STA (08:16)
[2022-08-29] MEDS ORDERED: SODIUM CHLORIDE 0.9% 1,000 ML IV STA (08:16)
[2022-08-29] MEDS ORDERED: SODIUM CHLORIDE 0.9% 500 ML 500 ML IV STA (08:16)
--- NOTE | 2022-08-29 09:10 | XR ---
EXAMINATION TYPE: XR KUB DATE OF EXAM: 08/29/2022 COMPARISON: 05/25/2022 HISTORY: Pain TECHNIQUE: Single supine KUB image of the abdomen is obtained FINDINGS: Small bowel demonstrates no evidence for dilatation or air fluid levels. Gas and fecal material is seen in non-distended colon. No convincing evidence for pneumoperitoneum. Calculus overlying the lower pole right kidney measures 5.6 mm. The lung bases are clear. The osseous structures are intact. Gastric banding device is in place. IMPRESSION: 1. Overall nonobstructive bowel gas pattern.
[2022-08-29 09:17] LABS: Anisocytosis Moderate; Basophils % (A) 0 %; Eosinophils # (A) 0.5 k/uL (0-0.7); Eosinophils % (A) 6 %; HCT 34.5 % (34.0-46.0); HGB 10.6 gm/dL (11.4-16.0); Hypochromasia Marked; Lymphocytes # (A) 2.1 k/uL (1.0-4.8); Lymphocytes % (A) 23 %; MCH 22.3 pg (25.0-35.0); MCHC 30.8 g/dL (31.0-37.0); MCV 72.5 fL (80.0-100.0); Mean Platelet Volume 7.7; Microcytosis Marked; Monocytes # (A) 0.4 k/uL (0-1.0); Monocytes % (A) 5 %; Neutrophils # (A) 5.7 k/uL (1.3-7.7); Neutrophils % (A) 64 %; Platelet Count 283 k/uL (150-450); RBC 4.75 m/uL (3.80-5.40); RDW 20.4 % (11.5-15.5); WBC 8.8 k/uL (3.8-10.6)
[2022-08-29 09:18] LABS: ALT 28 U/L (4-34); AST 23 U/L (14-36); African American GFR (CKD) >90 (>60 ml/min/1.73 sqM); Albumin 3.8 g/dL (3.5-5.0); Alkaline Phosphatase 117 U/L (38-126); Amylase 58 U/L (30-110); Anion Gap 9 mmol/L; Blood Urea Nitrogen 6 mg/dL (7-17); Calcium 8.6 mg/dL (8.4-10.2); Carbon Dioxide 21 mmol/L (22-30); Chloride 111 mmol/L (98-107); Glucose 101 mg/dL (74-99); Lipase 190 U/L (23-300); Magnesium 1.8 mg/dL (1.6-2.3); Non-African American GFR(CKD) >90 (>60 ml/min/1.73 sqM); Sodium 141 mmol/L (137-145); Total Bilirubin 0.3 mg/dL (0.2-1.3); Total Protein 6.4 g/dL (6.3-8.2)
[2022-08-29] MEDS ORDERED: METOCLOPRAMIDE 5 MG/ML 2 ML VIAL IVP STA (09:53)
[2022-08-29 10:06] LABS: Appearance,Urine Cloudy (Clear); Bilirubin,Urine Negative (Negative); Blood,Urine Negative (Negative); Calcium Oxalate Crystals,Urine Occasional /hpf; Color,Urine Yellow; Glucose,Urine (UA) Negative (Negative); Hyaline Casts,Urine 7 /lpf (0-2); Ketones,Urine Negative (Negative); Leukocyte Esterase,Urine Trace (Negative); Mucus,Urine Many /hpf; Nitrite,Urine Negative (Negative); Protein,Urine 1+ (Negative); RBC,Urine 2 /hpf (0-5); Specific Gravity,Urine 1.027 (1.001-1.035); Squamous Epithelial Cell,Urine 7 /hpf (0-4); Urobilinogen,Urine <2.0 mg/dL (<2.0); WBC,Urine 5 /hpf (0-5)
[2022-08-29] MEDS ORDERED: SODIUM CHLORIDE 0.9% 500 ML 500 ML IV ONE (10:44)
--- NOTE | 2022-08-29 10:46 | ED ---
General Adult HPI - General Chief complaint: Nausea/Vomiting/Diarrhea Stated complaint: abd pain, diarrhea Time Seen by Provider: 08/29/22 08:06 Source: patient, RN notes reviewed Mode of arrival: ambulatory Limitations: no limitations - History of Present Illness Initial comments: 47-year-old female presents emergency Department chief complaint of diarrhea. Patient states that she was recently admitted for an ileus states that she had a CAT scan prior to discharge showing evidence ileus had resolved possible colitis versus diarrhea type changes. Patient states she's had persistent diarrhea she was not placed on antibiotics. Patient denies fever or chills currently but states she had 100 temp other day. Patient denies any localized abdominal pain states she's has mild discomfort no pain compared to her prior discomfort that brought her in emergency from. She does have a lap band which has been deflated states that he was dislodged. Patient denies any dysuria, hematuria she does admit to some ongoing nausea. - Related Data Home Medications Medication Instructions Recorded Confirmed Metoprolol Succinate (ER) [Toprol 100 mg PO BID 05/07/18 08/22/22 XL] Erenumab-Aooe [Aimovig 140 mg SQ Q28D 04/21/20 08/22/22 Autoinjector] Pregabalin [Lyrica] 150 mg PO BID 04/21/20 08/22/22 Rimegepant Sulfate [Nurtec Odt] 75 mg PO Q48H PRN 04/21/20 08/22/22 Vortioxetine Hydrobromide 20 mg PO HS 04/21/20 08/22/22 [Trintellix] Zolpidem [Ambien] 10 mg PO HS 04/21/20 08/22/22 ARIPiprazole [Abilify] 2 mg PO HS 03/10/21 08/22/22 amLODIPine [Norvasc] 5 mg PO HS 03/10/21 08/22/22 Liraglutide [Saxenda] 3 mg SQ DAILY 08/22/22 08/22/22 Meloxicam [Mobic] 15 mg PO DAILY 08/22/22 08/22/22 Topiramate [Topamax] 50 mg PO HS 08/22/22 08/22/22 Previous Rx's Medication Instructions Recorded Ferrous Sulfate [Iron (65 MG 325 mg PO BID-W/MEALS #60 tab 08/23/22 Elemental)] Amoxic-Pot Clav 875-125Mg 1 tab PO Q12HR #14 tab 08/29/22 [Augmentin 875-125] Dicyclomine [Bentyl] 20 mg PO TID #30 tablet 08/29/22 Ondansetron Odt [Zofran Odt] 4 mg PO Q8HR PRN #14 tab 08/29/22 Allergies Allergy/AdvReac Type Severity Reaction Status Date / Time SAI Inhibitors Allergy ANGIOEDEMA Verified 08/29/22 07:52 ofloxacin [From Floxin] AdvReac Unknown Hallucinati Verified 08/29/22 07:52 ons bupropion [From Wellbutrin] AdvReac seizure Verified 08/29/22 07:52 fluoxetine [From Prozac] AdvReac Hallucinati Verified 08/29/22 07:52 ons venlafaxine [From Effexor] AdvReac seizure Verified 08/29/22 07:52 Review of Systems ROS Statement: Those systems with pertinent positive or pertinent negative responses have been documented in the HPI. ROS Other: All systems not noted in ROS Statement are negative. Past Medical History Past Medical History: GERD/Reflux, Hypertension, Osteoarthritis (OA), Pneumonia Additional Past Medical History / Comment(s): kidney stones, environmental allergies, pneumonia aug 2021 post-op, herniated discs., occasional tachycardia. ileus History of Any Multi-Drug Resistant Organisms: None Reported Past Surgical History: Adenoidectomy, Bariatric Surgery, Section, Cholecystectomy, Hysterectomy, Joint Replacement, Orthopedic Surgery, Tonsillectomy Additional Past Surgical History / Comment(s): Left knee replacement, arthroscopy right knee ., lap band 16 yrs ago- no fluid in band per pt. surgery at [facility].) 03/23/22 trigger finger Past Anesthesia/Blood Transfusion Reactions: Postoperative Nausea & Vomiting (PONV) Additional Past Anesthesia/Blood Transfusion Reaction / Comment(s): grandmother- difficulty waking up, slight fever. Past Psychological History: Depression Smoking Status: Never smoker Past Alcohol Use History: Rare Past Drug Use History: None Reported - Past Family History Mother Family Medical History: Hypertension General Exam Limitations: no limitations General appearance: alert, in no apparent distress Head exam: Present: atraumatic, normocephalic, normal inspection Eye exam: Present: normal appearance, PERRL, EOMI. Absent: scleral icterus, conjunctival injection, periorbital swelling ENT exam: Present: normal exam, normal oropharynx, mucous membranes dry Neck exam: Present: normal inspection, full ROM. Absent: tenderness, meningismus, lymphadenopathy Respiratory exam: Present: normal lung sounds bilaterally. Absent: respiratory distress, wheezes, rales, rhonchi, stridor Cardiovascular Exam: Present: regular rate, normal rhythm, normal heart sounds. Absent: systolic murmur, diastolic murmur, rubs, gallop, clicks GI/Abdominal exam: Present: soft, tenderness (Minimal), normal bowel sounds. Absent: distended, guarding, rebound, rigid Back exam: Absent: CVA tenderness (R), CVA tenderness (L) Neurological exam: Present: alert, oriented X3 Skin exam: Present: warm, dry, intact, normal color. Absent: rash Course Vital Signs 08/29/22 07:49 Temperature 98.3 F Pulse Rate 96 Respiratory 18 Rate Blood Pressure 114/71 O2 Sat by Pulse 98 Oximetry Procedures - [place] Protocol (Time Out) Nurse: Keiko Mckay Medical Decision Making - Medical Decision Making 47-year-old female presented emergency department for diarrhea. I did review prior imaging including 2 CTs, lab work. Patient did have evidence of colitis type changes on CT versus diarrhea. She's had persistent diarrhea they did inform she may be treated for the sclerae if symptoms persist. She has not had any resolution of symptoms patient was acutely dehydrated she was given 2 L of fluid does feel greatly improved. - Lab Data Result diagrams: 08/29/22 09:00 08/29/22 09:00 Lab Results 08/29/22 08/29/22 08/29/22 Range/Units 09:00 09:00 09:00 WBC 8.8 (3.8-10.6) k/uL RBC 4.75 (3.80-5.40) m/uL Hgb 10.6 L (11.4-16.0) gm/dL Hct 34.5 (34.0-46.0) % MCV 72.5 L (80.0-100.0) fL MCH 22.3 L (25.0-35.0) pg MCHC 30.8 L (31.0-37.0) g/dL RDW 20.4 H (11.5-15.5) % Plt Count 283 (150-450) k/uL MPV 7.7 Neutrophils % 64 % Lymphocytes % 23 % Monocytes % 5 % Eosinophils % 6 % Basophils % 0 % Neutrophils # 5.7 (1.3-7.7) k/uL Lymphocytes # 2.1 (1.0-4.8) k/uL Monocytes # 0.4 (0-1.0) k/uL Eosinophils # 0.5 (0-0.7) k/uL Basophils # 0.0 (0-0.2) k/uL Hypochromasia Marked Anisocytosis Moderate Microcytosis Marked Sodium 141 (137-145) mmol/L Potassium 4.0 (3.5-5.1) mmol/L Chloride 111 H (98-107) mmol/L Carbon Dioxide 21 L (22-30) mmol/L Anion Gap 9 mmol/L BUN 6 L (7-17) mg/dL Creatinine 0.60 (0.52-1.04) mg/dL Est GFR (CKD-EPI)AfAm >90 (>60 ml/min/1.73 sqM) Est GFR (CKD-EPI)NonAf >90 (>60 ml/min/1.73 sqM) Glucose 101 H (74-99) mg/dL Plasma Lactic Acid Pietro 2.4 H* (0.7-2.0) mmol/L Calcium 8.6 (8.4-10.2) mg/dL Magnesium 1.8 (1.6-2.3) mg/dL Total Bilirubin 0.3 (0.2-1.3) mg/dL AST 23 (14-36) U/L ALT 28 (4-34) U/L Alkaline Phosphatase 117 (38-126) U/L Total Protein 6.4 (6.3-8.2) g/dL Albumin 3.8 (3.5-5.0) g/dL Amylase 58 (30-110) U/L Lipase 190 (23-300) U/L Urine Color Urine Appearance (Clear) Urine pH (5.0-8.0) Ur Specific [place] (1.001-1.035) Urine Protein (Negative) Urine Glucose (UA) (Negative) Urine Ketones (Negative) Urine Blood (Negative) Urine Nitrite (Negative) Urine Bilirubin (Negative) Urine Urobilinogen (<2.0) mg/dL Ur Leukocyte Esterase (Negative) Urine RBC (0-5) /hpf Urine WBC (0-5) /hpf Ur Squamous Epith Cells (0-4) /hpf Calcium Oxalate Crystal (None) /hpf Hyaline Casts (0-2) /lpf Urine Mucus (None) /hpf 08/29/22 Range/Units 09:39 WBC (3.8-10.6) k/uL RBC (3.80-5.40) m/uL Hgb (11.4-16.0) gm/dL Hct (34.0-46.0) % MCV (80.0-100.0) fL MCH (25.0-35.0) pg MCHC (31.0-37.0) g/dL RDW (11.5-15.5) % Plt Count (150-450) k/uL MPV Neutrophils % % Lymphocytes % % Monocytes % % Eosinophils % % Basophils % % Neutrophils # (1.3-7.7) k/uL Lymphocytes # (1.0-4.8) k/uL Monocytes # (0-1.0) k/uL Eosinophils # (0-0.7) k/uL Basophils # (0-0.2) k/uL Hypochromasia Anisocytosis Microcytosis Sodium (137-145) mmol/L Potassium (3.5-5.1) mmol/L Chloride (98-107) mmol/L Carbon Dioxide (22-30) mmol/L Anion Gap mmol/L BUN (7-17) mg/dL Creatinine (0.52-1.04) mg/dL Est GFR (CKD-EPI)AfAm (>60 ml/min/1.73 sqM) Est GFR (CKD-EPI)NonAf (>60 ml/min/1.73 sqM) Glucose (74-99) mg/dL Plasma Lactic Acid Pietro (0.7-2.0) mmol/L Calcium (8.4-10.2) mg/dL Magnesium (1.6-2.3) mg/dL Total Bilirubin (0.2-1.3) mg/dL AST (14-36) U/L ALT (4-34) U/L Alkaline Phosphatase (38-126) U/L Total Protein (6.3-8.2) g/dL Albumin (3.5-5.0) g/dL Amylase (30-110) U/L Lipase (23-300) U/L Urine Color Yellow Urine Appearance Cloudy H (Clear) Urine pH 6.0 (5.0-8.0) Ur Specific [place] 1.027 (1.001-1.035) Urine Protein 1+ H (Negative) Urine Glucose (UA) Negative (Negative) Urine Ketones Negative (Negative) Urine Blood Negative (Negative) Urine Nitrite Negative (Negative) Urine Bilirubin Negative (Negative) Urine Urobilinogen <2.0 (<2.0) mg/dL Ur Leukocyte Esterase Trace H (Negative) Urine RBC 2 (0-5) /hpf Urine WBC 5 (0-5) /hpf Ur Squamous Epith Cells 7 H (0-4) /hpf Calcium Oxalate Crystal Occasional H (None) /hpf Hyaline Casts 7 H (0-2) /lpf Urine Mucus Many H (None) /hpf Disposition Clinical Impression: Colitis, Diarrhea Disposition: HOME SELF-CARE Instructions (If sedation given, give patient instructions): Acute Nausea and Vomiting (ED), Acute Diarrhea (ED) Additional Instructions: Please return to the Emergency Department if symptoms worsen or any other concerns. Prescriptions: Amoxic-Pot Clav 875-125Mg [Augmentin 875-125] 1 tab PO Q12HR #14 tab Dicyclomine [Bentyl] 20 mg PO TID #30 tablet Ondansetron Odt [Zofran Odt] 4 mg PO Q8HR PRN #14 tab PRN Reason: Nausea Is patient prescribed a controlled substance at d/c from ED?: No Referrals: Rosa Stewart MD [Primary Care Provider] - 1-2 days Time of Disposition: 10:22
[2022-08-29 11:45] VITALS: BP 117/73; PULSE 83; TEMP 98.1
== END 2022-08-29 11:45 | disposition home or self-care (01) ==
LOC: EC 07:32
DX: K52.9 Noninfective gastroenteritis and colitis, unspecified (principal); I10 Essential (primary) hypertension; F32.A Depression, unspecified; M19.90 Unspecified osteoarthritis, unspecified site; Z88.1 Allergy status to other antibiotic agents; Z88.8 Allergy status to other drugs, medicaments and biological substances; Z79.899 Other long term (current) drug therapy
CPT/HCPCS: 36415; 80053; 82150; 83605; 83690; 83735; 85025; 81001; 74018; 99284; 96374; 96375 ×2; 96361; J2765; J2405; C9113

== ENCOUNTER 2022-09-08 10:03 | Day surgery (SDC) | payer MEDICAID ==
[2022-09-07 10:09] VITALS: BMI 42.4
[~2022-09-08 10:03] MED LIST changes: -DEXAMETHASONE SOD PHOSPHATE 4 MG/ML 1 ML VIAL IV ONE; -HYDROmorphone 0.5 MG/0.5 ML SYRINGE IVP PRN; -LIDOCAINE 1% (10MG/ML) FOR IV START INTRADERMA PRN; -MIDAZOLAM 2 MG/2 ML VIAL IV PRN; -ONDANSETRON 4 MG/2 ML VIAL IVP ONE; -ceFAZolin 3 GM in SODIUM CHLORIDE 0.9% 100 ML IVPB PRN
[2022-09-08 10:42] VITALS: TEMP 97.8
[2022-09-08] MEDS ORDERED: PROPOFOL 10 MG/ML 20 ML VIAL IV ONE (11:20)
--- NOTE | 2022-09-08 11:37 | P.OP ---
Date of Procedure: 09/08/22 Preoperative Diagnosis: Colitis Postoperative Diagnosis: Hemorrhoids Rectal biopsy pathology pending Procedure(s) Performed: Colonoscopy Anesthesia: MAC Surgeon: Jose Luis Newton Pathology: other (Rectum) Condition: stable Disposition: PACU Description of Procedure: The patient's placed on the endoscopy table in the lateral position. She received IV sedation. Digital rectal exam was performed. This revealed external hemorrhoids. Flexible colonoscope was then placed patient anus and passed throughout the entire colon. The ileocecal valve was visualized. The cecum, ascending and transverse colon appeared normal. The descending and sigmoid colon appeared normal. Scope summer back the rectum and this appeared normal. A random rectal biopsies performed due to the patient's symptoms of diarrhea. Scope was then withdrawn.
[2022-09-08 11:56] VITALS: BP 108/70; PULSE 69; RESP 15
== END 2022-09-08 12:35 | disposition home or self-care (01) ==
LOC: ORWHC2ENDO 10:03
PROVIDERS: ATTEND Surgery
DX: K52.9 Noninfective gastroenteritis and colitis, unspecified (principal); K64.4 Residual hemorrhoidal skin tags; I10 Essential (primary) hypertension; M19.90 Unspecified osteoarthritis, unspecified site; K21.9 Gastro-esophageal reflux disease without esophagitis; Z90.49 Acquired absence of other specified parts of digestive tract; Z90.710 Acquired absence of both cervix and uterus; Z90.89 Acquired absence of other organs; Z82.49 Family history of ischemic heart disease and other diseases of the circulatory system; Z96.60 Presence of unspecified orthopedic joint implant; Z79.899 Other long term (current) drug therapy
CPT/HCPCS: 88305; 45380; J2704

== ENCOUNTER 2023-04-04 05:20 | Emergency (ER) | payer MEDICAID ==
[2023-04-04] MEDS ORDERED: SODIUM CHLORIDE 0.9% 1,000 ML IV STA (06:00)
[2023-04-04] MEDS ORDERED: KETOROLAC 15 MG/ML 1 ML VIAL IVP STA (06:00)
--- NOTE | 2023-04-04 06:10 | ED ---
Back Pain HPI - General Chief Complaint: Urogenital Stated Complaint: Kidney Stone Time Seen by Provider: 04/04/23 05:56 Source: patient, RN notes reviewed Mode of arrival: ambulatory Limitations: no limitations - History of Present Illness Initial Comments: This is a 47-year-old female who presents to the emergency department for left flank pain. States that this started at around 4 AM, about 2 hours prior to arrival. States that this is intermittent in nature and she has associated nausea. She reports a history of kidney stones and states that this feels the same. Also states that her urine appears darker than normal. The pain does not wrap around to the abdomen. Denies any fevers, chills, sore throat, cough, dyspnea, chest pain, palpitations, abdominal pain, vomiting, diarrhea, or headaches. MD Complaint: back pain - Related Data Home Medications Medication Instructions Recorded Confirmed Metoprolol Succinate (ER) [Toprol 100 mg PO BID 05/07/18 09/07/22 XL] Erenumab-Aooe [Aimovig 140 mg SQ Q28D 04/21/20 09/07/22 Autoinjector] Pregabalin [Lyrica] 150 mg PO BID 04/21/20 09/07/22 Rimegepant Sulfate [Nurtec Odt] 75 mg PO Q48H PRN 04/21/20 09/07/22 Vortioxetine Hydrobromide 20 mg PO HS 04/21/20 09/07/22 [Trintellix] Zolpidem [Ambien] 10 mg PO HS 04/21/20 09/07/22 ARIPiprazole [Abilify] 2 mg PO HS 03/10/21 09/07/22 amLODIPine [Norvasc] 5 mg PO HS 03/10/21 09/07/22 Liraglutide [Saxenda] 3 mg SQ DAILY 08/22/22 09/07/22 Meloxicam [Mobic] 15 mg PO DAILY 08/22/22 09/07/22 Topiramate [Topamax] 50 mg PO HS 08/22/22 09/07/22 Ferrous Sulfate [Iron (65 MG 325 mg PO BID-W/MEALS 09/07/22 09/07/22 Elemental)] Previous Rx's Medication Instructions Recorded Dicyclomine [Bentyl] 20 mg PO TID #30 tablet 08/29/22 Ondansetron Odt [Zofran Odt] 4 mg PO Q8HR PRN #14 tab 08/29/22 Ketorolac [Toradol] 10 mg PO Q6HR PRN #15 tab 04/04/23 Ondansetron Odt [Zofran Odt] 4 mg PO Q8HR PRN #15 tab 04/04/23 Sulfamethox-Tmp 800-160Mg [Bactrim 1 tab PO Q12HR 7 Days #14 tab 04/04/23 DS 800-160 mg] Allergies Allergy/AdvReac Type Severity Reaction Status Date / Time SAI Inhibitors Allergy ANGIOEDEMA Verified 04/04/23 05:32 ofloxacin [From Floxin] AdvReac Unknown Hallucinati Verified 04/04/23 05:32 ons bupropion [From Wellbutrin] AdvReac seizure Verified 04/04/23 05:32 fluoxetine [From Prozac] AdvReac Hallucinati Verified 04/04/23 05:32 ons venlafaxine [From Effexor] AdvReac seizure Verified 04/04/23 05:32 Review of Systems ROS Statement: Those systems with pertinent positive or pertinent negative responses have been documented in the HPI. ROS Other: All systems not noted in ROS Statement are negative. Past Medical History Past Medical History: GERD/Reflux, Hypertension, Osteoarthritis (OA), Pneumonia Additional Past Medical History / Comment(s): kidney stones, environmental allergies, pneumonia aug 2021 post-op, herniated discs., occasional tachycardia. ileus History of Any Multi-Drug Resistant Organisms: None Reported Past Surgical History: Adenoidectomy, Bariatric Surgery, Section, Cholecystectomy, Hysterectomy, Joint Replacement, Orthopedic Surgery, Tonsillectomy Additional Past Surgical History / Comment(s): Left knee replacement, arthroscopy right knee ., lap band 16 yrs ago- no fluid in band per pt. surgery at [facility].) 03/23/22 trigger finger , KIDNEY STONE SX, COLONOSCOPY Past Anesthesia/Blood Transfusion Reactions: Postoperative Nausea & Vomiting (PONV) Additional Past Anesthesia/Blood Transfusion Reaction / Comment(s): grandmother- difficulty waking up, slight fever. Past Psychological History: Depression Smoking Status: Never smoker - Past Family History Mother Family Medical History: Cancer, Hypertension General Exam Limitations: no limitations General appearance: alert, in no apparent distress Head exam: Present: atraumatic, normocephalic, normal inspection Respiratory exam: Present: normal lung sounds bilaterally. Absent: respiratory distress, wheezes, rales, rhonchi, stridor Cardiovascular Exam: Present: regular rate, normal rhythm, normal heart sounds. Absent: systolic murmur, diastolic murmur, rubs, gallop, clicks GI/Abdominal exam: Present: soft, normal bowel sounds. Absent: distended, tenderness, guarding, rebound, rigid Back exam: Present: CVA tenderness (L). Absent: CVA tenderness (R) Neurological exam: Present: alert, oriented X3, CN II-XII intact Psychiatric exam: Present: normal affect, normal mood Skin exam: Present: warm, dry, intact, normal color. Absent: rash Course Vital Signs 04/04/23 04/04/23 05:29 07:34 Temperature 98.4 F 98.2 F Pulse Rate 77 69 Respiratory 18 16 Rate Blood Pressure 131/85 111/77 O2 Sat by Pulse 96 97 Oximetry Medical Decision Making - Medical Decision Making This is a 47-year-old female who presents to the emergency department for left flank pain. Was pt. sent in by a medical professional or institution? @ -No Did you speak to anyone other than the patient for history? @ -No Did you review nursing and triage notes? @ -Yes, and I agree, it is accurate with regards to the patient's symptoms. Were old charts reviewed? @ -No Differential Diagnosis? @ -Differential Flank Pain: UTI, pyelonephritis, kidney stone, musculoskeletal, pancreatitis, cholecystitis, this is not meant to be an all-inclusive list. EKG interpreted by me (3pts min.)? @ -Not obtained X-rays interpreted by me (1pt min.)? @ -Not obtained CT interpreted by me (1pt min.)? @ -Computed tomography scan of the abdomen and pelvis obtained. My interpretation identifies nephrolithiasis without evidence of a ureteral calculus. U/S interpreted by me (1pt. min.)? @ -Not obtained What testing was considered but not performed? (CT, X-rays, U/S, labs)? Why? @ -None What meds were considered but not given? Why? @ -None Did you discuss the management of the patient with other professionals? @ -No Did you reconcile home meds? @ -No Was smoking cessation discussed for >3mins.? @ -No Was critical care preformed (if so, how long)? @ -No Were there social determinants of health that impacted care today? How? (Homelessness, low income, unemployed, alcoholism, drug addiction, transportation, low edu. Level, literacy, decrease access to med. care, halfway, rehab)? @ -No Was there de-escalation of care discussed even if they declined? (Discuss DNR or withdrawal of care, Hospice)? @ -No What co-morbidities impacted this encounter? (DM, HTN, Smoking, COPD, CAD, Cancer, CVA, Hep., AIDS, mental health diagnosis, sleep apnea, morbid obesity)? @ -Morbid obesity Was patient admitted / discharged? @ -Discharged. Lab work obtained and found to be nonactionable. Urinalysis reveals a large amount of blood along with leukoesterase and white blood cells. She was treated with IV fluids and Toradol, which was beneficial for her symptoms. Computed tomography scan of the abdomen and pelvis obtained revealing nephrolithiasis, however there is no evidence of an acute process or ureteral calculus. Advised the patient that this may be musculoskeletal in nature. It may also be related to UTI given the blood and leukoesterase in her urine. We'll treat the patient for possible UTI and the urine was sent for culture. Prescription for Bactrim, Toradol, and Zofran provided with dosing instructions reviewed. Patient is instructed to take the Toradol with Tylenol if needed and avoid any other [id number] anti-inflammatories such as ibuprofen with the Toradol. Otherwise advised follow-up with her primary care provider for reevaluation. Undiagnosed new problem with uncertain prognosis? @ -None Drug Therapy requiring intensive monitoring for toxicity (Heparin, Nitro, Insulin, Cardizem)? @ -None Were any procedures done? @ -None Diagnosis/symptom? @ -Left flank pain, UTI Acute, or Chronic, or Acute on Chronic? @ -Acute Uncomplicated (without systemic symptoms) or Complicated (systemic symptoms)? @ -Uncomplicated Side effects of treatment? @ -None Exacerbation, Progression, or Severe Exacerbation] @ -Not applicable Poses a threat to life or bodily function? @ -No Return precautions reviewed in depth, the patient is instructed to return to the emergency department with any new, worsening, or concerning symptoms. Patient verbalized understanding. This case was discussed in detail with the attending ED physician, Dr. Daly. Presentation, findings, and treatment plan discussed in detail as well. - Lab Data Result diagrams: 04/04/23 05:56 04/04/23 05:56 Lab Results 04/04/23 04/04/23 04/04/23 Range/Units 05:56 05:56 05:56 WBC 9.3 (3.8-10.6) k/uL RBC 4.96 (3.80-5.40) m/uL Hgb 13.3 (11.4-16.0) gm/dL Hct 41.2 (34.0-46.0) % MCV 83.0 (80.0-100.0) fL MCH 26.8 (25.0-35.0) pg MCHC 32.2 (31.0-37.0) g/dL RDW 14.2 (11.5-15.5) % Plt Count 283 (150-450) k/uL MPV 8.0 Neutrophils % (Manual) 59 % Lymphocytes % (Manual) 34 % Monocytes % (Manual) 7 % Neutrophils # (Manual) 5.49 (1.3-7.7) k/uL Lymphocytes # (Manual) 3.16 (1.0-4.8) k/uL Monocytes # (Manual) 0.65 (0-1.0) k/uL Nucleated RBCs 0 (0-0) /100 WBC Manual Slide Review Performed RBC Morphology Normal Sodium 138 (137-145) mmol/L Potassium 4.4 (3.5-5.1) mmol/L Chloride 108 H (98-107) mmol/L Carbon Dioxide 23 (22-30) mmol/L Anion Gap 7 mmol/L BUN 16 (7-17) mg/dL Creatinine 0.60 (0.52-1.04) mg/dL Est GFR (CKD-EPI)AfAm >90 (>60 ml/min/1.73 sqM) Est GFR (CKD-EPI)NonAf >90 (>60 ml/min/1.73 sqM) Glucose 119 H (74-99) mg/dL Calcium 9.2 (8.4-10.2) mg/dL Total Bilirubin 0.4 (0.2-1.3) mg/dL AST 20 (14-36) U/L ALT 25 (4-34) U/L Alkaline Phosphatase 118 (38-126) U/L Total Protein 6.8 (6.3-8.2) g/dL Albumin 4.0 (3.5-5.0) g/dL Urine Color Yellow Urine Appearance Cloudy H (Clear) Urine pH 6.0 (5.0-8.0) Ur Specific [place] 1.020 (1.001-1.035) Urine Protein Trace H (Negative) Urine Glucose (UA) Negative (Negative) Urine Ketones Negative (Negative) Urine Blood Large H (Negative) Urine Nitrite Negative (Negative) Urine Bilirubin Negative (Negative) Urine Urobilinogen <2.0 (<2.0) mg/dL Ur Leukocyte Esterase Large H (Negative) Urine RBC 27 H (0-5) /hpf Urine WBC 6 H (0-5) /hpf Ur Squamous Epith Cells 13 H (0-4) /hpf Urine Mucus Few H (None) /hpf - Radiology Data Radiology results: report reviewed, image reviewed Disposition Clinical Impression: Urinary tract infection, Left flank pain Disposition: HOME SELF-CARE Instructions (If sedation given, give patient instructions): Urinary Tract Infection in Women (ED), Flank Pain (ED) Additional Instructions: Return to the emergency department with any new, worsening, or concerning symptoms. Take the antibiotic as prescribed for 7 days. Take the Toradol with Tylenol as needed for pain relief. If you choose to take the Toradol, do not take ibuprofen or any other [id number]-anr-[id number] anti-inflammatories. You can take the Zofran up to every 8 hours as needed for nausea and vomiting. Follow up with your primary care provider in 1-2 days. Prescriptions: Sulfamethox-Tmp 800-160Mg [Bactrim DS 800-160 mg] 1 tab PO Q12HR 7 Days #14 tab Ketorolac [Toradol] 10 mg PO Q6HR PRN #15 tab PRN Reason: Pain Ondansetron Odt [Zofran Odt] 4 mg PO Q8HR PRN #15 tab PRN Reason: Nausea And Vomiting Is patient prescribed a controlled substance at d/c from ED?: No Referrals: Rosa Stewart MD [Primary Care Provider] - 1-2 days
[2023-04-04 06:19] LABS: Appearance,Urine Cloudy (Clear); Bilirubin,Urine Negative (Negative); Blood,Urine Large (Negative); Color,Urine Yellow; Glucose,Urine (UA) Negative (Negative); Ketones,Urine Negative (Negative); Leukocyte Esterase,Urine Large (Negative); Mucus,Urine Few /hpf; Nitrite,Urine Negative (Negative); Protein,Urine Trace (Negative); RBC,Urine 27 /hpf (0-5); Squamous Epithelial Cell,Urine 13 /hpf (0-4); Urobilinogen,Urine <2.0 mg/dL (<2.0); WBC,Urine 6 /hpf (0-5)
[2023-04-04 06:31] LABS: ALT 25 U/L (4-34); AST 20 U/L (14-36); African American GFR (CKD) >90 (>60 ml/min/1.73 sqM); Alkaline Phosphatase 118 U/L (38-126); Anion Gap 7 mmol/L; Blood Urea Nitrogen 16 mg/dL (7-17); Calcium 9.2 mg/dL (8.4-10.2); Carbon Dioxide 23 mmol/L (22-30); Chloride 108 mmol/L (98-107); Glucose 119 mg/dL (74-99); Non-African American GFR(CKD) >90 (>60 ml/min/1.73 sqM); Potassium 4.4 mmol/L (3.5-5.1); Sodium 138 mmol/L (137-145); Total Bilirubin 0.4 mg/dL (0.2-1.3); Total Protein 6.8 g/dL (6.3-8.2)
[2023-04-04 06:35] LABS: HCT 41.2 % (34.0-46.0); HGB 13.3 gm/dL (11.4-16.0); MCH 26.8 pg (25.0-35.0); MCHC 32.2 g/dL (31.0-37.0); Platelet Count 283 k/uL (150-450); RBC 4.96 m/uL (3.80-5.40); RDW 14.2 % (11.5-15.5); WBC 9.3 k/uL (3.8-10.6)
[2023-04-04 07:00] LABS: Lymphocytes # (M) 3.16 k/uL (1.0-4.8); Monocytes # (M) 0.65 k/uL (0-1.0); Neutrophils # (M) 5.49 k/uL (1.3-7.7); Neutrophils % (M) 59 %; Nucleated Red Blood Cells 0 /100 WBC (0-0); RBC Morphology Normal; Total Cells Counted 100
[2023-04-04 07:35] VITALS: BP 111/77; PULSE 69; RESP 16; TEMP 98.2
--- NOTE | 2023-04-04 07:39 | CT ---
EXAMINATION TYPE: CT abdomen pelvis wo con DATE OF EXAM: 04/04/2023 COMPARISON: 08/24/2022 INDICATION: Left Flank pain; history of renal stones DLP: 1427.5 mGycm, Automated exposure control for dose reduction was used. CONTRAST: 0 mL of Isovue 300. Study performed without Oral Contrast TECHNIQUE: Axial images were obtained from above the diaphragm to the pubic rami in the axial plane a t 5 mm thick sections. Reconstructed images are reviewed on the computer in the coronal plane. FINDINGS: Limited CT sections are obtained the lung bases. The lung bases are clear. CT ABDOMEN: A lap band is present. Liver: Normal Spleen: Normal Pancreas: Normal Adrenal glands: The adrenal glands are normal. Gallbladder: Surgically absent Kidneys: No masses are evident. No hydronephrosis is present. No cysts are present. Several nonobs tructing renal stones are present. On the left this would include a 0.5 cm calcification at the infer ior pole, a 0.6 cm calcification within the posterior mid to inferior pole. A posterior mid renal trista cification measuring 0.2 cm, upper to mid posterior renal stone measuring 0.3 cm and a upper 0.4 cm c alcification. On the right this would include a 0.9 cm mid inferior pole right renal stone. Aorta: Vascular calcification is within the aorta. Inferior vena cava: Normal. CT PELVIS: Loops of bowel within the abdomen and pelvis are normal. The study is without oral contrast limit ing bowel evaluation. Appendix: Normal as visualized. Urinary bladder: Normal. Genitourinary structures: Uterus and ovaries are not identified. Osseous structures: No suspicious lytic or sclerotic lesions. IMPRESSIONS: 1. Multiple bilateral nonobstructing renal stones
== END 2023-04-04 07:58 | disposition home or self-care (01) ==
LOC: EC 05:20
DX: N39.0 Urinary tract infection, site not specified (principal); R10.32 Left lower quadrant pain; K21.9 Gastro-esophageal reflux disease without esophagitis; I10 Essential (primary) hypertension; M19.90 Unspecified osteoarthritis, unspecified site; F32.A Depression, unspecified; Z88.8 Allergy status to other drugs, medicaments and biological substances; Z88.1 Allergy status to other antibiotic agents; Z79.899 Other long term (current) drug therapy; Z90.49 Acquired absence of other specified parts of digestive tract
CPT/HCPCS: 36415; 80053; 85025; 81001; 87086; 74176; 99284; 96374; 96361; J1885

== ENCOUNTER 2023-07-09 12:33 | Inpatient (IN) | payer MEDICAID ==
--- NOTE | 2023-07-09 12:58 | ED ---
General Adult HPI - General Chief complaint: Fever Stated complaint: fever,aches Time Seen by Provider: 07/09/23 12:43 Source: patient, RN notes reviewed, old records reviewed Mode of arrival: ambulatory Limitations: no limitations - History of Present Illness Initial comments: 48-year-old female with 4 days of fever, dry cough, rhinorrhea. Patient had been seen at urgent care and was sent to the emergency department with request for chest x-ray and laboratory testing. Patient has not tested for coronavirus or influenza. She has history of hypertension but is otherwise healthy. No vomiting. No dysuria, patient has had some mild left-sided flank pain. - Related Data Home Medications Medication Instructions Recorded Confirmed Metoprolol Succinate (ER) [Toprol 100 mg PO BID 05/07/18 09/07/22 XL] Erenumab-Aooe [Aimovig 140 mg SQ Q28D 04/21/20 09/07/22 Autoinjector] Pregabalin [Lyrica] 150 mg PO BID 04/21/20 09/07/22 Rimegepant Sulfate [Nurtec Odt] 75 mg PO Q48H PRN 04/21/20 09/07/22 Vortioxetine Hydrobromide 20 mg PO HS 04/21/20 09/07/22 [Trintellix] Zolpidem [Ambien] 10 mg PO HS 04/21/20 09/07/22 ARIPiprazole [Abilify] 2 mg PO HS 03/10/21 09/07/22 amLODIPine [Norvasc] 5 mg PO HS 03/10/21 09/07/22 Liraglutide [Saxenda] 3 mg SQ DAILY 08/22/22 09/07/22 Meloxicam [Mobic] 15 mg PO DAILY 08/22/22 09/07/22 Topiramate [Topamax] 50 mg PO HS 08/22/22 09/07/22 Ferrous Sulfate [Iron (65 MG 325 mg PO BID-W/MEALS 09/07/22 09/07/22 Elemental)] Previous Rx's Medication Instructions Recorded Dicyclomine [Bentyl] 20 mg PO TID #30 tablet 08/29/22 Ondansetron Odt [Zofran Odt] 4 mg PO Q8HR PRN #14 tab 08/29/22 Ketorolac [Toradol] 10 mg PO Q6HR PRN #15 tab 04/04/23 Ondansetron Odt [Zofran Odt] 4 mg PO Q8HR PRN #15 tab 04/04/23 Sulfamethox-Tmp 800-160Mg [Bactrim 1 tab PO Q12HR 7 Days #14 tab 04/04/23 DS 800-160 mg] Allergies Allergy/AdvReac Type Severity Reaction Status Date / Time SAI Inhibitors Allergy ANGIOEDEMA Verified 07/09/23 12:42 ofloxacin [From Floxin] AdvReac Unknown Hallucinati Verified 07/09/23 12:42 ons bupropion [From Wellbutrin] AdvReac seizure Verified 07/09/23 12:42 fluoxetine [From Prozac] AdvReac Hallucinati Verified 07/09/23 12:42 ons venlafaxine [From Effexor] AdvReac seizure Verified 07/09/23 12:42 Review of Systems ROS Statement: Those systems with pertinent positive or pertinent negative responses have been documented in the HPI. ROS Other: All systems not noted in ROS Statement are negative. Past Medical History Past Medical History: GERD/Reflux, Hypertension, Osteoarthritis (OA), Pneumonia Additional Past Medical History / Comment(s): kidney stones, environmental allergies, pneumonia aug 2021 post-op, herniated discs., occasional tachycardia. ileus History of Any Multi-Drug Resistant Organisms: None Reported Past Surgical History: Adenoidectomy, Bariatric Surgery, Section, Cholecystectomy, Hysterectomy, Joint Replacement, Orthopedic Surgery, Tonsillectomy Additional Past Surgical History / Comment(s): Left knee replacement, arthroscopy right knee ., lap band 16 yrs ago- no fluid in band per pt. surgery at [facility].) 03/23/22 trigger finger , KIDNEY STONE SX, COLONOSCOPY Past Anesthesia/Blood Transfusion Reactions: Postoperative Nausea & Vomiting (PONV) Additional Past Anesthesia/Blood Transfusion Reaction / Comment(s): grandmother- difficulty waking up, slight fever. Past Psychological History: Depression Smoking Status: Never smoker - Past Family History Mother Family Medical History: Cancer, Hypertension General Exam Limitations: no limitations General appearance: alert, in no apparent distress Head exam: Present: atraumatic, normocephalic Eye exam: Present: normal appearance, PERRL ENT exam: Present: normal oropharynx, other (Mild rhinorrhea) Neck exam: Present: normal inspection. Absent: tenderness, meningismus Respiratory exam: Present: rhonchi (Scattered). Absent: respiratory distress, wheezes Cardiovascular Exam: Present: regular rate, normal rhythm GI/Abdominal exam: Present: soft. Absent: distended, tenderness Extremities exam: Present: normal inspection Neurological exam: Present: alert, oriented X3, CN II-XII intact. Absent: motor sensory deficit Psychiatric exam: Present: normal affect, normal mood Skin exam: Present: warm, dry, intact. Absent: cyanosis, diaphoretic Course Vital Signs 07/09/23 07/09/23 07/09/23 12:40 13:02 14:40 Temperature 98.7 F 98.5 F 99.9 F H Pulse Rate 94 90 105 H Respiratory 16 18 18 Rate Blood Pressure 176/100 124/78 145/84 O2 Sat by Pulse 96 98 98 Oximetry Medical Decision Making - Medical Decision Making Was pt. sent in by a medical professional or institution (, PA, FORM MAKER [employer]ER, urgent care, hospital, or senior care...) When possible be specific @ -No Did you speak to anyone other than the patient for history (EMS, parent, family, police, friend...)? What history was obtained from this source @ -No Did you review nursing and triage notes (agree or disagree)? Why? @ -I reviewed and agree with nursing and triage notes Were old charts reviewed (outside hosp., previous admission, EMS record, old EKG, old radiological studies, urgent care reports/EKG's, senior care records)? Report findings @ -No old charts were reviewed Differential Diagnosis (chest pain, altered mental status, abdominal pain women, abdominal pain men, vaginal bleeding, weakness, fever, dyspnea, syncope, headache, dizziness, GI bleed, back pain, seizure, CVA, palpatations, mental health, musculoskeletal)? @ -Differential Fever: Pneumonia, viral URI, endocarditis, myocarditis, pericarditis, otitis, sinusitis, peritonsillar Abscess, retropharyngeal Abscess, epiglottitis, peritonitis, appendicitis, Zakiya cystitis, diverticulitis, hepatitis, colitis, UTI, PID, TOA, pyelonephritis, prostatitis, epididymitis, meningitis, encephalitis, pulmonary embolism, CVA, thyroid storm, pancreatitis, adrenal crisis, cavernous sinus thrombosis, this is not meant to be an all-inclusive list. EKG interpreted by me (3pts min.). @ -As above X-rays interpreted by me (1pt min.). @ -[No focal pneumonia CT interpreted by me (1pt min.). @ -None done U/S interpreted by me (1pt. min.). @ -None done What testing was considered but not performed or refused? (CT, X-rays, U/S, labs)? Why? @ -None What meds were considered but not given or refused? Why? @ -None Did you discuss the management of the patient with other professionals (professionals i.e. , PA, FORM MAKER P[employer]ER, lab, RT, psych nurse, licensed social worker, deck mechanic, teacher, sports development officer, case fitter)? Give summary @ -[Sound physician Was smoking cessation discussed for >3mins.? @ -No Was critical care preformed (if so, how long)? @ -No Were there social determinants of health that impacted care today? How? (Homelessness, low income, unemployed, alcoholism, drug addiction, transportation, low edu. Level, literacy, decrease access to med. care, correction, rehab)? @ -No Was there de-escalation of care discussed even if they declined (Discuss DNR or withdrawal of care, Hospice)? DNR status @ -No What co-morbidities impacted this encounter? (DM, HTN, Smoking, COPD, CAD, Cancer, CVA, ARF, Chemo, Hep., AIDS, mental health diagnosis, sleep apnea, mor bid obesity)? @ -None Was patient admitted / discharged? Hospital course, mention meds given and route, prescriptions, significant lab abnormalities, going to OR and other pertinent info. @ -48-year-old female with fever, sent from urgent care. Testing reveals that the patient has a significant urinary tract infection with fever. Urine culture and blood cultures are pending. Patient started on Rocephin mold will be admitted for IV antibiotics and IV fluids. Undiagnosed new problem with uncertain prognosis? @ -No Drug Therapy requiring intensive monitoring for toxicity (Heparin, Nitro, Insulin, Cardizem)? @ -No Were any procedures done? @ -No Diagnosis/symptom? @ -[Pyelonephritis Acute, or Chronic, or Acute on Chronic? @ -acute Uncomplicated (without systemic symptoms) or Complicated (systemic symptoms)? @ -default Side effects of treatment? @ -No Exacerbation, Progression, or Severe Exacerbation? @ -No Poses a threat to life or bodily function? How? (Chest pain, USA, MS, pneumonia, PE, COPD, DKA, ARF, appy, cholecystitis, CVA, Diverticulitis, Homicidal, Suicidal, threat to staff... and all critical care pts) @ -yes, sepsis - Lab Data Result diagrams: 07/09/23 13:14 07/09/23 13:38 Lab Results 07/09/23 07/09/23 07/09/23 Range/Units 12:52 13:14 13:14 WBC 7.6 (3.8-10.6) k/uL RBC 4.23 (3.80-5.40) m/uL Hgb 12.1 (11.4-16.0) gm/dL Hct 36.9 (34.0-46.0) % MCV 87.4 (80.0-100.0) fL MCH 28.6 (25.0-35.0) pg MCHC 32.8 (31.0-37.0) g/dL RDW 15.7 H (11.5-15.5) % Plt Count 189 (150-450) k/uL MPV 8.9 Neutrophils % 77 % Lymphocytes % 12 % Monocytes % 6 % Eosinophils % 2 % Basophils % 0 % Neutrophils # 5.8 (1.3-7.7) k/uL Lymphocytes # 0.9 L (1.0-4.8) k/uL Monocytes # 0.4 (0-1.0) k/uL Eosinophils # 0.1 (0-0.7) k/uL Basophils # 0.0 (0-0.2) k/uL Sodium (137-145) mmol/L Potassium (3.5-5.1) mmol/L Chloride (98-107) mmol/L Carbon Dioxide (22-30) mmol/L Anion Gap mmol/L BUN (7-17) mg/dL Creatinine (0.52-1.04) mg/dL Est GFR (CKD-EPI)AfAm (>60 ml/min/1.73 sqM) Est GFR (CKD-EPI)NonAf (>60 ml/min/1.73 sqM) Glucose (74-99) mg/dL Calcium (8.4-10.2) mg/dL Total Bilirubin (0.2-1.3) mg/dL AST (14-36) U/L ALT (4-34) U/L Alkaline Phosphatase (38-126) U/L Total Protein (6.3-8.2) g/dL Albumin (3.5-5.0) g/dL Urine Color [place] Urine Appearance Cloudy H (Clear) Urine RBC 57 H (0-5) /hpf Urine WBC >182 H (0-5) /hpf Urine WBC Clumps Occasional H (None) /hpf Ur Squamous Epith Cells 2 (0-4) /hpf Amorphous Sediment Rare H (None) /hpf Urine Bacteria Rare H (None) /hpf Urine Mucus Few H (None) /hpf Heterophile Antibody (Negative) Influenza Type A (PCR) Not Detected (Not Detectd) Influenza Type B (PCR) Not Detected (Not Detectd) RSV (PCR) Not Detected (Not Detectd) SARS-CoV-2 (PCR) Not Detected (Not Detectd) 07/09/23 07/09/23 Range/Units 13:38 14:36 WBC (3.8-10.6) k/uL RBC (3.80-5.40) m/uL Hgb (11.4-16.0) gm/dL Hct (34.0-46.0) % MCV (80.0-100.0) fL MCH (25.0-35.0) pg MCHC (31.0-37.0) g/dL RDW (11.5-15.5) % Plt Count (150-450) k/uL MPV Neutrophils % % Lymphocytes % % Monocytes % % Eosinophils % % Basophils % % Neutrophils # (1.3-7.7) k/uL Lymphocytes # (1.0-4.8) k/uL Monocytes # (0-1.0) k/uL Eosinophils # (0-0.7) k/uL Basophils # (0-0.2) k/uL Sodium 137 (137-145) mmol/L Potassium 3.5 (3.5-5.1) mmol/L Chloride 102 (98-107) mmol/L Carbon Dioxide 23 (22-30) mmol/L Anion Gap 12 mmol/L BUN 22 H (7-17) mg/dL Creatinine 1.02 (0.52-1.04) mg/dL Est GFR (CKD-EPI)AfAm 75 (>60 ml/min/1.73 sqM) Est GFR (CKD-EPI)NonAf 65 (>60 ml/min/1.73 sqM) Glucose 183 H (74-99) mg/dL Calcium 9.0 (8.4-10.2) mg/dL Total Bilirubin 0.9 (0.2-1.3) mg/dL AST 40 H (14-36) U/L ALT 40 H (4-34) U/L Alkaline Phosphatase 259 H (38-126) U/L Total Protein 6.3 (6.3-8.2) g/dL Albumin 3.1 L (3.5-5.0) g/dL Urine Color Urine Appearance (Clear) Urine RBC (0-5) /hpf Urine WBC (0-5) /hpf Urine WBC Clumps (None) /hpf Ur Squamous Epith Cells (0-4) /hpf Amorphous Sediment (None) /hpf Urine Bacteria (None) /hpf Urine Mucus (None) /hpf Heterophile Antibody Negative (Negative) Influenza Type A (PCR) (Not Detectd) Influenza Type B (PCR) (Not Detectd) RSV (PCR) (Not Detectd) SARS-CoV-2 (PCR) (Not Detectd) Disposition Clinical Impression: Pyelonephritis Disposition: ADMITTED IP TO THIS HOSP Condition: Stable Is patient prescribed a controlled substance at d/c from ED?: No Referrals: Rosa Stewart MD [Primary Care Provider] - 1-2 days Time of Disposition: 15:22
[2023-07-09 13:25] LABS: Basophils % (A) 0 %; Eosinophils # (A) 0.1 k/uL (0-0.7); Eosinophils % (A) 2 %; HCT 36.9 % (34.0-46.0); HGB 12.1 gm/dL (11.4-16.0); Lymphocytes # (A) 0.9 k/uL (1.0-4.8); Lymphocytes % (A) 12 %; MCH 28.6 pg (25.0-35.0); MCHC 32.8 g/dL (31.0-37.0); MCV 87.4 fL (80.0-100.0); Mean Platelet Volume 8.9; Monocytes # (A) 0.4 k/uL (0-1.0); Monocytes % (A) 6 %; Neutrophils # (A) 5.8 k/uL (1.3-7.7); Neutrophils % (A) 77 %; Platelet Count 189 k/uL (150-450); RBC 4.23 m/uL (3.80-5.40); RDW 15.7 % (11.5-15.5); WBC 7.6 k/uL (3.8-10.6)
[2023-07-09 13:37] LABS: Amorphous Sediment,Urine Rare /hpf; Bacteria,Urine Rare /hpf; Mucus,Urine Few /hpf; RBC,Urine 57 /hpf (0-5); Squamous Epithelial Cell,Urine 2 /hpf (0-4); WBC,Urine >182 /hpf (0-5)
--- NOTE | 2023-07-09 13:38 | XR ---
EXAMINATION TYPE: XR chest 2V DATE OF EXAM: 07/09/2023 1:20 PM CLINICAL INDICATION:Female, 48 years old with history of fever; COMPARISON: Chest radiographs from 10/25/2021 TECHNIQUE: XR chest 2V Frontal and lateral views of the chest. FINDINGS: Lungs/Pleura: There is no evidence of pleural effusion, focal consolidation, or pneumothorax. Pulmonary vascularity: Unremarkable. Heart/mediastinum: Cardiomediastinal silhouette is unremarkable. Musculoskeletal: No acute osseous pathology. IMPRESSION: No acute cardiopulmonary disease/process.
[2023-07-09 13:39] LABS: Color,Urine Orange
[2023-07-09 13:40] LABS: Appearance,Urine Cloudy (Clear)
[2023-07-09] MEDS ORDERED: cefTRIAXone IN SWFI 1,000 MG/10 ML SYRINGE IVP STA (13:56)
[2023-07-09] MEDS ORDERED: SODIUM CHLORIDE 0.9% 1,000 ML IV ONE (13:58)
[2023-07-09 14:22] LABS: ALT 40 U/L (4-34); AST 40 U/L (14-36); African American GFR (CKD) 75 (>60 ml/min/1.73 sqM); Albumin 3.1 g/dL (3.5-5.0); Alkaline Phosphatase 259 U/L (38-126); Anion Gap 12 mmol/L; Blood Urea Nitrogen 22 mg/dL (7-17); Carbon Dioxide 23 mmol/L (22-30); Chloride 102 mmol/L (98-107); Glucose 183 mg/dL (74-99); Non-African American GFR(CKD) 65 (>60 ml/min/1.73 sqM); Potassium 3.5 mmol/L (3.5-5.1); Sodium 137 mmol/L (137-145); Total Bilirubin 0.9 mg/dL (0.2-1.3); Total Protein 6.3 g/dL (6.3-8.2)
[2023-07-09] MEDS ORDERED: IBUPROFEN 600 MG TAB PO STA (14:36)
[2023-07-09] MEDS ORDERED: IBUPROFEN 600 MG TAB PO PRN (15:17)
[2023-07-09] MEDS ORDERED: NALOXONE 0.4 MG/ML 1 ML VIAL IV PRN (15:17)
--- NOTE | 2023-07-09 16:06 | US ---
EXAMINATION TYPE: US renals and bladder DATE OF EXAM: 07/09/2023 COMPARISON: CT CLINICAL INDICATION: Female, 48 years old with history of Pyelonephritis; Flank pain, fever EXAM MEASUREMENTS: Right Kidney: 13.0 x 7.0 x 6.3 cm Left Kidney: 14.8 x 8.1 x 6.6 cm Incidental finding enlarged spleen The right kidney is normal in size and there is no cortical mass, cortical thinning or hydronephrosis . There is a 8mm nonobstructing right lower pole renal calcification. Left kidney is not enlarged and there is no cortical mass, cortical thinning or renal calcification. There is moderate hydronephrosis. No perinephric fluid collections are seen IMPRESSION: 1. Moderate left hydronephrosis. 2. nonobstructing lower pole right renal calculus. 3. splenomegaly.
[2023-07-09] MEDS: SODIUM CHLORIDE 0.9% 1,000 ML IV SCH ×2 (16:09→20:49)
--- NOTE | 2023-07-09 16:32 | P.HPIM ---
History of Present Illness H&P Date: 07/09/23 Patient is a 48-year-old female with history of hypertension, depression, migraine headaches presenting with flank pain. She claims that she started having myalgias and arthralgias as well as high fever starting . She was also experiencing left-sided flank pain. She had some dysuria and urgency. She presented to an urgent care and was asked to come to the emergency. She claims that she has some nausea but denies any abdominal pain, chest pain, shortness of breath, bowel complaints, any travel history. She currently works as a nurse on the medical surgical floor. She has an extensive history of renal stones, attributed to her history of bariatric surgery. In the ED, Temperature of 99.9, pulse 105, respiratory rate 18, blood pressure 145/84, saturating at 98% on room air. WBC 7.6, hemoglobin 12.1, potassium 3.5, creatinine 1.02, BUN 22, glucose 183, total bilirubin 0.9, AST 40, ALT 40, ALP 259, urinalysis shows greater than 182 WBCs with clumps, respiratory viral panel negative. Chest x-ray, independently interpreted, under inflated, otherwise no opacities. Patient was started on IV ceftriaxone, admitted for acute pyelonephritis. Pertinent positives and negatives as discussed in HPI, a complete review of systems was performed and all other systems are negative. Patient seen and examined at bedside. Vital signs reviewed General: nontoxic, no distress, appears at stated age, obese Derm: warm, dry bruising noted on left lower quadrant of abdomen from recent trauma at work place Head: atraumatic, normocephalic, symmetric Eyes: EOMI, no lid lag, anicteric sclera, pupils equal round reactive to light ENT: Nose and ears atraumatic Neck: No thyromegaly, supple Mouth: no lip lesion, mucus membranes moist Cardiovascular: S1S2 reg, no murmur, no edema Lungs: clear to auscultation bilateral, no rhonchi, no rales, no wheeze, no accessory muscle use Abdominal: soft, nontender to palpation, no guarding, no appreciable organomegaly, CVA tenderness on left side Ext: no gross muscle atrophy, muscle strength muscle strength 5 out of 5 in all 4 extremities, no contractures Neuro: CN II-XII grossly intact Psych: Alert, oriented, appropriate affect Assessment/Plan: Active: Acute pyelonephritis History of renal stones Prerenal azotemia -CT abdomen and pelvis with contrast ordered -Continue IV ceftriaxone -Blood cultures and urine cultures pending -Continue continue IV fluids at 1 30 mL an hour -Tylenol as needed for pain and fever Transaminitis -No left upper quadrant pain -Repeat CMP tomorrow Chronic: Depression Migraine Hypertension restart home meds when reconciled. The patient is admitted with an anticipated greater than 2 midnight stay as observation status for evaluation of pyelonephritis. Surrogate decision-maker: mother CODE STATUS:full code DVT prophylaxis: heparin sq Anticipated discharge date: pending clinical course Anticipated discharge place: pending clinical course A total of 55 minutes was spent on the care of this complex patient more than 50% of the time was spent in counseling and care coordination. Past Medical History Past Medical History: GERD/Reflux, Hypertension, Osteoarthritis (OA), Pneumonia Additional Past Medical History / Comment(s): kidney stones, environmental allergies, pneumonia aug 2021 post-op, herniated discs., occasional tachycardia. ileus History of Any Multi-Drug Resistant Organisms: None Reported Past Surgical History: Adenoidectomy, Bariatric Surgery, Section, Cholecystectomy, Hysterectomy, Joint Replacement, Orthopedic Surgery, Tonsillectomy Additional Past Surgical History / Comment(s): Left knee replacement, arthroscopy right knee ., lap band 16 yrs ago- no fluid in band per pt. surgery at [facility].) 03/23/22 trigger finger , KIDNEY STONE SX, COLONOSCOPY Past Anesthesia/Blood Transfusion Reactions: Postoperative Nausea & Vomiting (PONV) Additional Past Anesthesia/Blood Transfusion Reaction / Comment(s): grandmother- difficulty waking up, slight fever. Past Psychological History: Depression Smoking Status: Never smoker - Past Family History Mother Family Medical History: Cancer, Hypertension Medications and Allergies Home Medications Medication Instructions Recorded Confirmed Type Metoprolol Succinate (ER) [Toprol 100 mg PO BID 05/07/18 09/07/22 History XL] Erenumab-Aooe [Aimovig 140 mg SQ Q28D 04/21/20 09/07/22 History Autoinjector] Pregabalin [Lyrica] 150 mg PO BID 04/21/20 09/07/22 History Rimegepant Sulfate [Nurtec Odt] 75 mg PO Q48H PRN 04/21/20 09/07/22 History Vortioxetine Hydrobromide 20 mg PO HS 04/21/20 09/07/22 History [Trintellix] Zolpidem [Ambien] 10 mg PO HS 04/21/20 09/07/22 History ARIPiprazole [Abilify] 2 mg PO HS 03/10/21 09/07/22 History amLODIPine [Norvasc] 5 mg PO HS 03/10/21 09/07/22 History Liraglutide [Saxenda] 3 mg SQ DAILY 08/22/22 09/07/22 History Meloxicam [Mobic] 15 mg PO DAILY 08/22/22 09/07/22 History Topiramate [Topamax] 50 mg PO HS 08/22/22 09/07/22 History Dicyclomine [Bentyl] 20 mg PO TID #30 tablet 08/29/22 09/07/22 Rx Ondansetron Odt [Zofran Odt] 4 mg PO Q8HR PRN #14 tab 08/29/22 09/07/22 Rx Ferrous Sulfate [Iron (65 MG 325 mg PO BID-W/MEALS 09/07/22 09/07/22 History Elemental)] Ketorolac [Toradol] 10 mg PO Q6HR PRN #15 tab 04/04/23 Rx Ondansetron Odt [Zofran Odt] 4 mg PO Q8HR PRN #15 tab 04/04/23 Rx Sulfamethox-Tmp 800-160Mg [Bactrim 1 tab PO Q12HR 7 Days #14 tab 04/04/23 Rx DS 800-160 mg] Allergies Allergy/AdvReac Type Severity Reaction Status Date / Time SAI Inhibitors Allergy ANGIOEDEMA Verified 07/09/23 12:42 ofloxacin [From Floxin] AdvReac Unknown Hallucinati Verified 07/09/23 12:42 ons bupropion [From Wellbutrin] AdvReac seizure Verified 07/09/23 12:42 fluoxetine [From Prozac] AdvReac Hallucinati Verified 07/09/23 12:42 ons venlafaxine [From Effexor] AdvReac seizure Verified 07/09/23 12:42 Physical Exam Vitals: Vital Signs Temp Pulse Resp BP Pulse Ox 07/09/23 16:10 114 H 20 139/70 95 07/09/23 14:40 99.9 F H 105 H 18 145/84 98 07/09/23 13:02 98.5 F 90 18 124/78 98 07/09/23 12:40 98.7 F 94 16 176/100 96 Intake and Output 07/09/23 07/09/23 07/09/23 06:59 14:59 22:59 Other: Weight 123.377 kg Results CBC & Chem 7: 07/09/23 13:14 07/09/23 13:38 Labs: Abnormal Lab Results - Last 24 Hours (Table) 07/09/23 07/09/23 07/09/23 Range/Units 13:14 13:14 13:38 RDW 15.7 H (11.5-15.5) % Lymphocytes # 0.9 L (1.0-4.8) k/uL BUN 22 H (7-17) mg/dL Glucose 183 H (74-99) mg/dL AST 40 H (14-36) U/L ALT 40 H (4-34) U/L Alkaline Phosphatase 259 H (38-126) U/L Albumin 3.1 L (3.5-5.0) g/dL Urine Appearance Cloudy H (Clear) Urine RBC 57 H (0-5) /hpf Urine WBC >182 H (0-5) /hpf Urine WBC Clumps Occasional H (None) /hpf Amorphous Sediment Rare H (None) /hpf Urine Bacteria Rare H (None) /hpf Urine Mucus Few H (None) /hpf
--- NOTE | 2023-07-09 17:09 | CT ---
EXAMINATION TYPE: CT abdomen pelvis w con DATE OF EXAM: 07/09/2023 COMPARISON: 07/09/2023 HISTORY: Acute pyelonephritis, hx of multiple stones CT DLP: 3132.4 mGycm Automated exposure control for dose reduction was used. TECHNIQUE: Helical acquisition of images was performed from the lung bases through the pelvis. CONTRAST: Performed without Oral Contrast and with IV Contrast, patient injected with 100 mL of Isovue 370. FINDINGS: Visualized lung bases are clear. There is a moderate hiatal hernia. There are postsurgical changes of a lap band device. There is no focal mass or organomegaly involving the liver, pancreas or spleen. There are surgical ab sence of the gallbladder. The caliber the abdominal aorta is normal and there is no retroperitoneal adenopathy or hemorrhage. There is a persistent 9 on the left, there is interval development of moderate to marked hydronephros is and hydroureter secondary to an obstructing 10 mm calcification in the distal left ureter just pro ximal to the left UVJ. There are 3 additional nonobstructing left renal calcifications. The bowel loops are normal in caliber and there is no dilatation or obstruction. There is no pelvic mass or adenopathy. There are surgical absence of uterus. The osseous structures and soft tissues unremarkable. IMPRESSION: 1. Interval development of moderate to marked left hydronephrosis secondary to a 10 mm obstructing di stal left ureteral calcification. 2. persistent bilateral renal calcifications as described above. 3. Moderate hiatal hernia. 4. Lap band procedure. 5. Status post cholecystectomy and hysterectomy.
[2023-07-09] MEDS ORDERED: ACETAMINOPHEN TAB 325 MG TAB PO PRN (17:25)
[2023-07-09] MEDS: ONDANSETRON 4 MG/2 ML VIAL IVP PRN (18:22)
[2023-07-09] MEDS: HYDROmorphone 0.5 MG/0.5 ML SYRINGE IVP PRN ×2 (18:22→23:58)
[2023-07-09] MEDS: VORTIOXETINE HYDROBROMIDE 20 MG TABLET PO SCH (20:47)
[2023-07-09] MEDS: PREGABALIN 75 MG CAP PO SCH (20:47)
[2023-07-09] MEDS: ZOLPIDEM 5 MG TAB PO SCH (20:48)
[2023-07-09] MEDS: DULoxetine HCL 60 MG CAPSULE.DR PO SCH (20:48)
[2023-07-09] MEDS: ARIPiprazole 2 MG TAB PO SCH (20:48)
[2023-07-09] MEDS: METOPROLOL SUCCINATE (ER) 50 MG TAB.ER.24H PO SCH (20:48)
[2023-07-09] MEDS: cloNIDine HCL 0.1 MG TAB PO SCH (20:48)
[2023-07-09] MEDS: MULTIVITAMINS, THERA 1 EACH TAB PO SCH (20:48)
[2023-07-09] MEDS: HEPARIN SODIUM,PORCINE 5,000 UNIT/ML 1 ML VIAL SQ SCH (20:54)
[2023-07-10] MEDS: HYDROmorphone 0.5 MG/0.5 ML SYRINGE IVP PRN ×3 (04:35→22:02)
[2023-07-10] MEDS: SODIUM CHLORIDE 0.9% 1,000 ML IV SCH (04:36)
[2023-07-10] MEDS: ACETAMINOPHEN TAB 325 MG TAB PO PRN (06:14)
[2023-07-10 06:48] LABS: African American GFR (CKD) 65 (>60 ml/min/1.73 sqM); Anion Gap 16 mmol/L; Anisocytosis Slight; Blood Urea Nitrogen 20 mg/dL (7-17); Carbon Dioxide 18 mmol/L (22-30); Chloride 101 mmol/L (98-107); Glucose 139 mg/dL (74-99); HGB 10.8 gm/dL (11.4-16.0); Hypochromasia Slight; MCH 27.7 pg (25.0-35.0); MCHC 30.9 g/dL (31.0-37.0); MCV 89.8 fL (80.0-100.0); Mean Platelet Volume 9.8; Non-African American GFR(CKD) 57 (>60 ml/min/1.73 sqM); Platelet Count 116 k/uL (150-450); Potassium 3.9 mmol/L (3.5-5.1); RBC 3.89 m/uL (3.80-5.40); RDW 16.3 % (11.5-15.5); Sodium 135 mmol/L (137-145); WBC 8.3 k/uL (3.8-10.6)
--- NOTE | 2023-07-10 07:40 | P.GSCN ---
History of Present Illness Consult date: 07/10/23 History of present illness: 48-year-old female with a known history of kidney stones treated by in the past. She presents with left flank pain fever and chills of. She had a normal white count. Urine is infected. She developed temperature this morning. We are consult. She had a computed tomography scan identifying a 70 mm distal ureteral stone on the left with hydronephrosis. His urine is infected. Review of Systems All systems: negative - Constitutional Denies fever, Denies weight loss - EENT Eyes: denies blurred vision Ears, nose, mouth and throat: Denies dysphagia - Cardiovascular Denies chest pain, Denies shortness of breath - Respiratory Denies cough, Denies 7 - Gastrointestinal Reports as per HPI - Genitourinary Genitourinary: Denies dysuria, Denies hematuria - Integumentary Denies rash, Denies unusual bruising - Neurological Denies headaches, Denies syncope - Hematologic/Lymphatic Denies easy bleeding, Denies easy bruising Past Medical History Past Medical History: GERD/Reflux, Hypertension, Osteoarthritis (OA), Pneumonia Additional Past Medical History / Comment(s): kidney stones, environmental allergies, pneumonia aug 2021 post-op, herniated discs., occasional tachycardia. ileus History of Any Multi-Drug Resistant Organisms: None Reported Past Surgical History: Adenoidectomy, Bariatric Surgery, Section, Cholecystectomy, Hysterectomy, Joint Replacement, Orthopedic Surgery, Tonsillectomy Additional Past Surgical History / Comment(s): Left knee replacement, arthroscopy right knee ., lap band 16 yrs ago- no fluid in band per pt. surgery at [facility].) 03/23/22 trigger finger , KIDNEY STONE SX, COLONOSCOPY Past Anesthesia/Blood Transfusion Reactions: Postoperative Nausea & Vomiting (PONV) Additional Past Anesthesia/Blood Transfusion Reaction / Comm: grandmother- difficulty waking up, slight fever. Past Psychological History: Depression Smoking Status: Never smoker Past Alcohol Use History: Rare Past Drug Use History: None Reported - Past Family History Mother Family Medical History: Cancer, Hypertension Medications and Allergies Home Medications Medication Instructions Recorded Confirmed Type Metoprolol Succinate (ER) [Toprol 150 mg PO BID 05/07/18 07/09/23 History XL] Pregabalin [Lyrica] 150 mg PO HS 04/21/20 07/09/23 History Vortioxetine Hydrobromide 20 mg PO HS 04/21/20 07/09/23 History [Trintellix] Zolpidem [Ambien] 10 mg PO HS 04/21/20 07/09/23 History ARIPiprazole [Abilify] 2 mg PO HS 03/10/21 07/09/23 History amLODIPine [Norvasc] 5 mg PO HS 03/10/21 07/09/23 History Acetaminophen Tab [Tylenol] 650 mg PO Q6H PRN 07/09/23 07/09/23 History Cyclobenzaprine [Flexeril] 10 mg PO BID PRN 07/09/23 07/09/23 History DULoxetine HCL [Cymbalta] 60 mg PO HS 07/09/23 07/09/23 History Ibuprofen [Motrin Ib] 400 mg PO Q6H PRN 07/09/23 07/09/23 History Multivitamins, Thera [Multivitamin 1 tab PO HS 07/09/23 07/09/23 History (formulary)] cloNIDine HCL [Catapres] 0.1 mg PO HS 07/09/23 07/09/23 History Allergies Allergy/AdvReac Type Severity Reaction Status Date / Time ofloxacin [From Floxin] AdvReac Unknown Hallucinati Verified 07/09/23 16:39 ons SAI Inhibitors AdvReac ANGIOEDEMA Verified 07/09/23 16:39 bupropion [From Wellbutrin] AdvReac seizure Verified 07/09/23 16:39 fluoxetine [From Prozac] AdvReac Hallucinati Verified 07/09/23 16:39 ons venlafaxine [From Effexor] AdvReac seizure Verified 07/09/23 16:39 Surgical - Exam Vital Signs Temp Pulse Resp BP Pulse Ox 98.7 F 94 16 176/100 96 07/09/23 12:40 07/09/23 12:40 07/09/23 12:40 07/09/23 12:40 07/09/23 12:40 - General well developed, well nourished, no distress - Eyes normal ocular movement, no icteric - ENT no hearing loss, no congestion - Neck no masses, trachea midline - Respiratory normal respiratory effort, clear to auscultation - Abdomen Abdomen: soft, non tender, no guarding, no rigid, no rebound - Integumentary no rash, no abnormal pigmentation - Neurologic no disoriented, no combative - Psychiatric oriented to time, oriented to person, oriented to place, speech is normal, memory intact Results - Labs 07/10/23 05:55 07/10/23 05:55 Abnormal Lab Results - Last 24 Hours (Table) 07/09/23 07/09/23 07/09/23 Range/Units 13:14 13:14 13:38 Hgb (11.4-16.0) gm/dL MCHC (31.0-37.0) g/dL RDW 15.7 H (11.5-15.5) % Plt Count (150-450) k/uL Lymphocytes # 0.9 L (1.0-4.8) k/uL Sodium (137-145) mmol/L Carbon Dioxide (22-30) mmol/L BUN 22 H (7-17) mg/dL Creatinine (0.52-1.04) mg/dL Glucose 183 H (74-99) mg/dL Calcium (8.4-10.2) mg/dL AST 40 H (14-36) U/L ALT 40 H (4-34) U/L Alkaline Phosphatase 259 H (38-126) U/L Albumin 3.1 L (3.5-5.0) g/dL Urine Appearance Cloudy H (Clear) Urine RBC 57 H (0-5) /hpf Urine WBC >182 H (0-5) /hpf Urine WBC Clumps Occasional H (None) /hpf Amorphous Sediment Rare H (None) /hpf Urine Bacteria Rare H (None) /hpf Urine Mucus Few H (None) /hpf 07/10/23 07/10/23 Range/Units 05:55 05:55 Hgb 10.8 L (11.4-16.0) gm/dL MCHC 30.9 L (31.0-37.0) g/dL RDW 16.3 H (11.5-15.5) % Plt Count 116 L (150-450) k/uL Lymphocytes # (1.0-4.8) k/uL Sodium 135 L (137-145) mmol/L Carbon Dioxide 18 L (22-30) mmol/L BUN 20 H (7-17) mg/dL Creatinine 1.14 H (0.52-1.04) mg/dL Glucose 139 H (74-99) mg/dL Calcium 8.0 L (8.4-10.2) mg/dL AST (14-36) U/L ALT (4-34) U/L Alkaline Phosphatase (38-126) U/L Albumin (3.5-5.0) g/dL Urine Appearance (Clear) Urine RBC (0-5) /hpf Urine WBC (0-5) /hpf Urine WBC Clumps (None) /hpf Amorphous Sediment (None) /hpf Urine Bacteria (None) /hpf Urine Mucus (None) /hpf Diabetes panel 07/09/23 07/10/23 Range/Units 13:38 05:55 Sodium 137 135 L (137-145) mmol/L Potassium 3.5 3.9 (3.5-5.1) mmol/L Chloride 102 101 (98-107) mmol/L Carbon Dioxide 23 18 L (22-30) mmol/L BUN 22 H 20 H (7-17) mg/dL Creatinine 1.02 1.14 H (0.52-1.04) mg/dL Glucose 183 H 139 H (74-99) mg/dL Calcium 9.0 8.0 L (8.4-10.2) mg/dL AST 40 H (14-36) U/L ALT 40 H (4-34) U/L Alkaline Phosphatase 259 H (38-126) U/L Total Protein 6.3 (6.3-8.2) g/dL Albumin 3.1 L (3.5-5.0) g/dL Calcium panel 07/09/23 07/10/23 Range/Units 13:38 05:55 Calcium 9.0 8.0 L (8.4-10.2) mg/dL Albumin 3.1 L (3.5-5.0) g/dL Pituitary panel 07/09/23 07/10/23 Range/Units 13:38 05:55 Sodium 137 135 L (137-145) mmol/L Potassium 3.5 3.9 (3.5-5.1) mmol/L Chloride 102 101 (98-107) mmol/L Carbon Dioxide 23 18 L (22-30) mmol/L BUN 22 H 20 H (7-17) mg/dL Creatinine 1.02 1.14 H (0.52-1.04) mg/dL Glucose 183 H 139 H (74-99) mg/dL Calcium 9.0 8.0 L (8.4-10.2) mg/dL Adrenal panel 07/09/23 07/10/23 Range/Units 13:38 05:55 Sodium 137 135 L (137-145) mmol/L Potassium 3.5 3.9 (3.5-5.1) mmol/L Chloride 102 101 (98-107) mmol/L Carbon Dioxide 23 18 L (22-30) mmol/L BUN 22 H 20 H (7-17) mg/dL Creatinine 1.02 1.14 H (0.52-1.04) mg/dL Glucose 183 H 139 H (74-99) mg/dL Calcium 9.0 8.0 L (8.4-10.2) mg/dL Total Bilirubin 0.9 (0.2-1.3) mg/dL AST 40 H (14-36) U/L ALT 40 H (4-34) U/L Alkaline Phosphatase 259 H (38-126) U/L Total Protein 6.3 (6.3-8.2) g/dL Albumin 3.1 L (3.5-5.0) g/dL - Imaging CT scan - abdomen: report reviewed, image reviewed CT scan - pelvis: report reviewed, image reviewed Assessment and Plan Assessment: Impression: Left ureteral calculus with obstruction, urinary tract infection with sepsis, left pyelonephrosis. Medical comorbidities Recommendation: Patient will need a stent placement today to drain the infected pyelonephritis urine on the left side. The stone manipulation redundant later date. She's been made nothing by mouth.
[2023-07-10] MEDS: HEPARIN SODIUM,PORCINE 5,000 UNIT/ML 1 ML VIAL SQ SCH ×3 (08:55→22:01)
[2023-07-10] MEDS: METOPROLOL SUCCINATE (ER) 50 MG TAB.ER.24H PO SCH ×2 (08:57→20:21)
[2023-07-10] MEDS: MEROPENEM 500 MG in SODIUM CHLORIDE 0.9% 100 ML IVPB SCH ×3 (11:06→22:01)
--- NOTE | 2023-07-10 13:06 | P.PN ---
Subjective Progress Note Date: 07/10/23 Hospital Course: 48-year-old female with history of hypertension, depression, migraine headaches presenting with flank pain. In the ED, Temperature of 99.9, pulse 105, respiratory rate 18, blood pressure 145/84, saturating at 98% on room air. WBC 7.6, hemoglobin 12.1, potassium 3.5, creatinine 1.02, BUN 22, glucose 183, total bilirubin 0.9, AST 40, ALT 40, ALP 259, urinalysis shows greater than 182 WBCs with clumps, respiratory viral panel negative. Chest x-ray, independently inte rpreted, under inflated, otherwise no opacities. Patient was started on IV ceftriaxone, admitted for acute pyelonephritis. CT abdomen and pelvis shows left 10 mm obstructing distal ureteral calcification with moderate to marked left hydronephrosis, bilateral renal calcifications. Urology consulted, pending ureteral stent placement. Patient also has ESBL E. coli bacteremia. Started on meropenem. Subjective: Patient seen and examined at bedside. No acute events overnight. Feeling a little better today. Pertinent positives and negatives as discussed above, a complete review of systems was performed and all other systems are negative. Vitals Signs Reviewed. General: nontoxic, no distress, appears at stated age, obese Derm: warm, dry bruising noted on left lower quadrant of abdomen from recent trauma at work place Head: atraumatic, normocephalic, symmetric Eyes: EOMI, no lid lag, anicteric sclera, pupils equal round reactive to light ENT: Nose and ears atraumatic Neck: No thyromegaly, supple Mouth: no lip lesion, mucus membranes moist Cardiovascular: S1S2 reg, no murmur, no edema Lungs: clear to auscultation bilateral, no rhonchi, no rales, no wheeze, no accessory muscle use Abdominal: soft, nontender to palpation, no guarding, no appreciable organomegaly, CVA tenderness on left side Ext: no gross muscle atrophy, muscle strength muscle strength 5 out of 5 in all 4 extremities, no contractures Neuro: CN II-XII grossly intact Psych: Alert, oriented, appropriate affect Data Reviewed Today: Pertinent Labs: Hemoglobin 10.8, platelet 116, sodium 135, bicarbonate 18, creatinine 1.14 Imaging: No new imaging Assessment and Plan: Sepsis secondary to Acute pyelonephritis ESBL E. coli bacteremia Left obstructive ureteral stone with moderate to marked hydronephrosis Bilateral ureteral stones Prerenal azotemia Metabolic acidosis, high anion gap -Repeat cultures ordered -Started on IV meropenem, ceftriaxone discontinued -Urine cultures pending -Urology note reviewed, pending ureteral stent placement today -Tylenol as needed for pain and fever -Also on IV Dilaudid 0.5 every 4 hours as needed for pain -Fluids changed from normal saline to lactated Ringer at 1 25 mL an hour Transaminitis -No left upper quadrant pain -Repeat CMP tomorrow Chronic: Depression Migraine Hypertension DVT ppx: Subcu heparin Code status: Full code Anticipated discharge place: Pending clinical course Anticipated discharge time: Pending clinical course Objective - Vital Signs Vital signs: Vital Signs Temp 98.4 F 07/10/23 07:00 Pulse 104 H 07/10/23 07:00 Resp 14 07/10/23 07:00 BP 127/83 07/10/23 07:00 Pulse Ox 91 L 07/10/23 07:00 FiO2 Intake & Output 07/09/23 07/10/23 07/10/23 18:59 06:59 18:59 Weight 123.377 kg Other: # Voids 1 6 - Labs CBC & Chem 7: 07/10/23 05:55 07/10/23 05:55 Labs: Abnormal Lab Results - Last 24 Hours (Table) 07/09/23 07/09/23 07/09/23 Range/Units 13:14 13:14 13:38 Hgb (11.4-16.0) gm/dL MCHC (31.0-37.0) g/dL RDW 15.7 H (11.5-15.5) % Plt Count (150-450) k/uL Lymphocytes # 0.9 L (1.0-4.8) k/uL Sodium (137-145) mmol/L Carbon Dioxide (22-30) mmol/L BUN 22 H (7-17) mg/dL Creatinine (0.52-1.04) mg/dL Glucose 183 H (74-99) mg/dL Calcium (8.4-10.2) mg/dL AST 40 H (14-36) U/L ALT 40 H (4-34) U/L Alkaline Phosphatase 259 H (38-126) U/L Albumin 3.1 L (3.5-5.0) g/dL Urine Appearance Cloudy H (Clear) Urine RBC 57 H (0-5) /hpf Urine WBC >182 H (0-5) /hpf Urine WBC Clumps Occasional H (None) /hpf Amorphous Sediment Rare H (None) /hpf Urine Bacteria Rare H (None) /hpf Urine Mucus Few H (None) /hpf 07/10/23 07/10/23 Range/Units 05:55 05:55 Hgb 10.8 L (11.4-16.0) gm/dL MCHC 30.9 L (31.0-37.0) g/dL RDW 16.3 H (11.5-15.5) % Plt Count 116 L (150-450) k/uL Lymphocytes # (1.0-4.8) k/uL Sodium 135 L (137-145) mmol/L Carbon Dioxide 18 L (22-30) mmol/L BUN 20 H (7-17) mg/dL Creatinine 1.14 H (0.52-1.04) mg/dL Glucose 139 H (74-99) mg/dL Calcium 8.0 L (8.4-10.2) mg/dL AST (14-36) U/L ALT (4-34) U/L Alkaline Phosphatase (38-126) U/L Albumin (3.5-5.0) g/dL Urine Appearance (Clear) Urine RBC (0-5) /hpf Urine WBC (0-5) /hpf Urine WBC Clumps (None) /hpf Amorphous Sediment (None) /hpf Urine Bacteria (None) /hpf Urine Mucus (None) /hpf Microbiology - Last 24 Hours (Table) 07/09/23 16:15 Blood Culture Gram Stain - Preliminary Blood 07/09/23 16:20 Blood Culture Gram Stain - Preliminary Blood
[2023-07-10] MEDS: LACTATED RINGERS 1,000 ML IV SCH ×3 (13:17→20:21)
[2023-07-10] MEDS ORDERED: DEXAMETHASONE SOD PHOSPHATE 4 MG/ML 1 ML VIAL IVP ONE (14:00)
[2023-07-10] MEDS: ONDANSETRON 4 MG/2 ML VIAL IVP PRN (14:00)
[2023-07-10 14:05] LABS: Band Neutrophils % 1 %; Lymphocytes # (M) 1.66 k/uL (1.0-4.8); Monocytes # (M) 0.83 k/uL (0-1.0); Neutrophils % (M) 69 %; Nucleated Red Blood Cells 0 /100 WBC (0-0); Total Cells Counted 100
[2023-07-10] MEDS ORDERED: IV FLUID CONTINUATION 1,000 ML IV ONE ×2 (14:08)
[2023-07-10] MEDS ORDERED: LACTATED RINGERS 1,000 ML IV ONE ×2 (14:08)
--- NOTE | 2023-07-10 15:22 | P.OP ---
Date of Procedure: 07/10/23 Preoperative Diagnosis: Left ureteral calculus, urinary tract infection with obstruction and sepsis, left pyelonephrosis Postoperative Diagnosis: Same Procedure(s) Performed: Cystoscopy placement of 6 x 24 double-J catheter left Anesthesia: NEVILLEA Surgeon: Fam Berry Pathology: none sent Condition: stable Disposition: PACU Indications for Procedure: The patient has a 9 mm distal ureteral stone with obstruction, urinary tract infection with sepsis and pyelonephrosis on the left side Description of Procedure: Patient brought to the operating suite. Given general endotracheal anesthesia. Placed lithotomy position with a sterile prep and drape. Cystoscopy Foroblique lens and 21-Congolese sheath identifies a normal urethra. There is some mild cystitis on the floor the bladder. The rest the bladder is unremarkable. An 035 straight wires passed through the left ureteral orifice up the left ureter into the renal pelvis. Over the wires and passed a 6 x 24 double-J catheter that coils in the renal pelvis and in the bladder. The bladder is drained the patient is awakened and returned recovery room good condition Impression successful placement of left double-J catheter to relieve obstruction tract infection. The stone will be dealt with at a later date. This is been discussed with the patient and her
[2023-07-10] MEDS ORDERED: HYDROmorphone 0.5 MG/0.5 ML SYRINGE IVP ONE (15:23)
--- NOTE | 2023-07-10 15:40 | FL ---
Intraoperative/procedural fluoroscopic services were provided for left ureteral stent placement. Tota l fluoroscopy time is 16.9 seconds with a total of 3 submitted images to PACS. Total DAP 6.6018 Gycm2 . Please see the operative note for further details.
[2023-07-10] MEDS: cloNIDine HCL 0.1 MG TAB PO SCH (20:21)
[2023-07-10] MEDS: DULoxetine HCL 60 MG CAPSULE.DR PO SCH (20:21)
[2023-07-10] MEDS: ARIPiprazole 2 MG TAB PO SCH (20:22)
[2023-07-10] MEDS: VORTIOXETINE HYDROBROMIDE 20 MG TABLET PO SCH (20:22)
[2023-07-10] MEDS: PREGABALIN 75 MG CAP PO SCH (20:22)
[2023-07-10] MEDS: MULTIVITAMINS, THERA 1 EACH TAB PO SCH (20:22)
[2023-07-10] MEDS: ZOLPIDEM 5 MG TAB PO SCH (20:22)
[2023-07-11] MEDS: LACTATED RINGERS 1,000 ML IV SCH ×3 (03:41→19:56)
[2023-07-11] MEDS: HYDROmorphone 0.5 MG/0.5 ML SYRINGE IVP PRN ×2 (03:41→22:28)
[2023-07-11] MEDS: MEROPENEM 500 MG in SODIUM CHLORIDE 0.9% 100 ML IVPB SCH ×4 (03:43→22:29)
[2023-07-11] MEDS: METOPROLOL SUCCINATE (ER) 50 MG TAB.ER.24H PO SCH ×2 (09:22→19:53)
[2023-07-11] MEDS: HEPARIN SODIUM,PORCINE 5,000 UNIT/ML 1 ML VIAL SQ SCH ×3 (09:22→22:29)
[2023-07-11 11:24] LABS: Anisocytosis Slight; Basophils % (A) 0 %; Eosinophils % (A) 0 %; HCT 31.5 % (34.0-46.0); HGB 10.1 gm/dL (11.4-16.0); Hypochromasia Slight; Lymphocytes # (A) 1.4 k/uL (1.0-4.8); Lymphocytes % (A) 12 %; MCH 28.6 pg (25.0-35.0); MCHC 32.1 g/dL (31.0-37.0); MCV 89.1 fL (80.0-100.0); Mean Platelet Volume 9.7; Monocytes # (A) 0.8 k/uL (0-1.0); Monocytes % (A) 7 %; Neutrophils # (A) 8.8 k/uL (1.3-7.7); Neutrophils % (A) 77 %; RBC 3.54 m/uL (3.80-5.40); RDW 16.2 % (11.5-15.5); WBC 11.5 k/uL (3.8-10.6)
--- NOTE | 2023-07-11 11:36 | P.PN ---
Subjective Progress Note Date: 07/11/23 Hospital Course: 48-year-old female with history of hypertension, depression, migraine headaches presenting with flank pain. In the ED, Temperature of 99.9, pulse 105, respiratory rate 18, blood pressure 145/84, saturating at 98% on room air. WBC 7.6, hemoglobin 12.1, potassium 3.5, creatinine 1.02, BUN 22, glucose 183, total bilirubin 0.9, AST 40, ALT 40, ALP 259, urinalysis shows greater than 182 WBCs with clumps, respiratory viral panel negative. Chest x-ray, independently interpreted, under inflated, otherwise no opacities. Patient was started on IV ceftriaxone, admitted for sepsis secondary to acute pyelonephritis. CT abdomen and pelvis shows left 10 mm obstructing distal ureteral calcification with moderate to marked left hydronephrosis, bilateral renal calcifications. Urology consulted, ureteral stent placed. Patient also has ESBL E. coli bacteremia. Started on meropenem. Subjective: Patient seen and examined at bedside. No acute events overnight. Feeling a lit tle better today. Pertinent positives and negatives as discussed above, a complete review of systems was performed and all other systems are negative. Vitals Signs Reviewed. General: nontoxic, no distress, appears at stated age, obese Derm: warm, dry, bruising noted on left lower quadrant of abdomen from recent trauma at work place Head: atraumatic, normocephalic, symmetric Eyes: EOMI, no lid lag, anicteric sclera, pupils equal round reactive to light ENT: Nose and ears atraumatic Neck: No thyromegaly, supple Mouth: no lip lesion, mucus membranes moist Cardiovascular: S1S2 reg, no murmur, no edema Lungs: clear to auscultation bilateral, no rhonchi, no rales, no wheeze, no accessory muscle use Abdominal: soft, nontender to palpation, no guarding, no appreciable organomegaly Ext: no gross muscle atrophy, muscle strength muscle strength 5 out of 5 in all 4 extremities, no contractures Neuro: CN II-XII grossly intact Psych: Alert, oriented, appropriate affect Data Reviewed Today: Pertinent Labs: CBC and CMP pending, will be reviewed when available, blood cultures and urine cultures both growing gram-negative bacilli Imaging: No new imaging Assessment and Plan: Sepsis secondary to Acute pyelonephritis ESBL E. coli bacteremia Left obstructive ureteral stone with moderate to marked hydronephrosis status post ureteral stent Bilateral ureteral stones Prerenal azotemia Metabolic acidosis, high anion gap -Repeat cultures drawn, no growth to date -Continue IV meropenem until final speciation, and then switched to oral and discharge patient home -Urine cultures also growing gram-negative bacilli -Urology following, patient status post ureteral stent placement -Tylenol as needed for pain and fever -Also on IV Dilaudid 0.5 every 4 hours as needed for pain -On lactated Ringer's at 1 25 mL an hour -Labs pending, will be reviewed when available Transaminitis -No left upper quadrant pain -Repeat CMP pending Chronic: Depression Migraine Hypertension DVT ppx: Subcu heparin Code status: Full code Anticipated discharge place: Pending clinical course Anticipated discharge time: Pending clinical course Objective - Vital Signs Vital signs: Vital Signs Temp 98.7 F 07/11/23 07:00 Pulse 101 H 07/11/23 07:00 Resp 14 07/11/23 07:00 BP 134/84 07/11/23 07:00 Pulse Ox 94 L 07/11/23 07:00 FiO2 Intake & Output 07/10/23 07/11/23 07/11/23 18:59 06:59 18:59 Intake Total 1100 118 Output Total 0 Balance 1100 118 Intake: IV 1100 Oral 118 Output: Estimated Blood Loss 0 Other: # Voids 1 - Labs CBC & Chem 7: 07/10/23 05:55 07/10/23 05:55 Labs: Microbiology - Last 24 Hours (Table) 07/09/23 16:20 Blood Culture Gram Stain - Preliminary Blood Blood Culture - Preliminary Gram Neg Bacilli 07/09/23 16:15 Blood Culture Gram Stain - Preliminary Blood Blood Culture - Preliminary Gram Neg Bacilli 07/09/23 14:36 Urine Culture - Preliminary Urine,Clean Catch Gram Neg Bacilli
[2023-07-11 11:37] LABS: ALT 26 U/L (4-34); AST 23 U/L (14-36); African American GFR (CKD) >90 (>60 ml/min/1.73 sqM); Albumin 2.7 g/dL (3.5-5.0); Alkaline Phosphatase 262 U/L (38-126); Anion Gap 12 mmol/L; Blood Urea Nitrogen 21 mg/dL (7-17); Calcium 8.1 mg/dL (8.4-10.2); Carbon Dioxide 21 mmol/L (22-30); Chloride 104 mmol/L (98-107); Globulin 2.7 g/dL; Glucose 153 mg/dL (74-99); Non-African American GFR(CKD) 83 (>60 ml/min/1.73 sqM); Potassium 3.9 mmol/L (3.5-5.1); Sodium 137 mmol/L (137-145); Total Bilirubin 0.5 mg/dL (0.2-1.3); Total Protein 5.4 g/dL (6.3-8.2)
[2023-07-11 11:39] LABS: Platelet Count 182 k/uL (150-450)
[2023-07-11] MEDS: ACETAMINOPHEN TAB 325 MG TAB PO PRN (13:35)
[2023-07-11] MEDS: HYDROcodone/APAP 5-325MG 1 EACH TAB PO PRN ×2 (13:35→19:54)
--- NOTE | 2023-07-11 14:40 | P.PN ---
Subjective Progress Note Date: 07/11/23 underwent left sided stent insertion. denies any flank pain., urine and blood culture growing gram negative bacilli Objective - Vital Signs Vital signs: Vital Signs Temp 100.4 F H 07/11/23 13:57 Pulse 96 07/11/23 13:57 Resp 12 07/11/23 13:57 BP 129/86 07/11/23 13:57 Pulse Ox 94 L 07/11/23 13:57 FiO2 Intake & Output 07/10/23 07/11/23 07/11/23 18:59 06:59 18:59 Intake Total 1100 236 Output Total 0 Balance 1100 236 Intake: IV 1100 Oral 236 Output: Estimated Blood Loss 0 Other: # Voids 1 - Constitutional General appearance: Present: no acute distress - Gastrointestinal General gastrointestinal: Present: soft. Absent: distended, tenderness - Labs CBC & Chem 7: 07/11/23 07:27 07/11/23 07:27 Labs: Abnormal Lab Results - Last 24 Hours (Table) 07/11/23 07/11/23 Range/Units 07:27 07:27 WBC 11.5 H (3.8-10.6) k/uL RBC 3.54 L (3.80-5.40) m/uL Hgb 10.1 L (11.4-16.0) gm/dL Hct 31.5 L (34.0-46.0) % RDW 16.2 H (11.5-15.5) % Neutrophils # 8.8 H (1.3-7.7) k/uL Carbon Dioxide 21 L (22-30) mmol/L BUN 21 H (7-17) mg/dL Glucose 153 H (74-99) mg/dL Calcium 8.1 L (8.4-10.2) mg/dL Alkaline Phosphatase 262 H (38-126) U/L Total Protein 5.4 L (6.3-8.2) g/dL Albumin 2.7 L (3.5-5.0) g/dL Microbiology - Last 24 Hours (Table) 07/09/23 16:20 Blood Culture Gram Stain - Preliminary Blood Blood Culture - Preliminary Gram Neg Bacilli 07/09/23 16:15 Blood Culture Gram Stain - Preliminary Blood Blood Culture - Preliminary Gram Neg Bacilli 07/09/23 14:36 Urine Culture - Preliminary Urine,Clean Catch Gram Neg Bacilli Assessment and Plan Assessment: S/P left stent insertion for septic stone. CT showed a 10 mm left-sided distal stone, and a 9 mm right-sided midpole stone -F/U on urine and blood culture. Antibiotics based on culture susceptibility -We'll arrange for outpatient left-sided ureteroscopy with holmium laser possible right-sided ureteroscopy
[2023-07-11] MEDS: MULTIVITAMINS, THERA 1 EACH TAB PO SCH (19:53)
[2023-07-11] MEDS: ARIPiprazole 2 MG TAB PO SCH (19:53)
[2023-07-11] MEDS: ZOLPIDEM 5 MG TAB PO SCH (19:53)
[2023-07-11] MEDS: DULoxetine HCL 60 MG CAPSULE.DR PO SCH (19:53)
[2023-07-11] MEDS: VORTIOXETINE HYDROBROMIDE 20 MG TABLET PO SCH (19:53)
[2023-07-11] MEDS: cloNIDine HCL 0.1 MG TAB PO SCH (19:54)
[2023-07-11] MEDS: PREGABALIN 75 MG CAP PO SCH (19:54)
[2023-07-12] MEDS: ACETAMINOPHEN TAB 325 MG TAB PO PRN ×3 (03:41→23:12)
[2023-07-12] MEDS: HYDROcodone/APAP 5-325MG 1 EACH TAB PO PRN ×2 (03:41→09:24)
[2023-07-12] MEDS: LACTATED RINGERS 1,000 ML IV SCH ×3 (03:43→23:11)
[2023-07-12] MEDS: MEROPENEM 500 MG in SODIUM CHLORIDE 0.9% 100 ML IVPB SCH (06:01)
[2023-07-12] MEDS: METOPROLOL SUCCINATE (ER) 50 MG TAB.ER.24H PO SCH ×2 (08:59→21:03)
[2023-07-12] MEDS: HEPARIN SODIUM,PORCINE 5,000 UNIT/ML 1 ML VIAL SQ SCH ×3 (08:59→23:12)
--- NOTE | 2023-07-12 09:16 | P.PN ---
Progress Note - Text Progress Note Date: 07/12/23 The patient is status post placement of a left double-J catheter for an obstructing ureteral calculus, urinary tract infection with sepsis and left pyelonephrosis. She is feeling better. She has some stent irritation. She is afebrile. Pending cultures as to antibiotic recommendations orally. The patient will need a stone and stent removal later date. Is been discussed with the patient.
[2023-07-12 09:35] LABS: Anisocytosis Slight; Basophils % (A) 0 %; Eosinophils # (A) 0.1 k/uL (0-0.7); Eosinophils % (A) 1 %; HGB 10.2 gm/dL (11.4-16.0); Hypochromasia Slight; Lymphocytes # (A) 2.4 k/uL (1.0-4.8); Lymphocytes % (A) 21 %; MCH 29.2 pg (25.0-35.0); MCHC 32.8 g/dL (31.0-37.0); MCV 89.1 fL (80.0-100.0); Mean Platelet Volume 8.3; Monocytes # (A) 0.6 k/uL (0-1.0); Monocytes % (A) 5 %; Neutrophils # (A) 7.8 k/uL (1.3-7.7); Neutrophils % (A) 69 %; Platelet Count 246 k/uL (150-450); RBC 3.48 m/uL (3.80-5.40); RDW 16.2 % (11.5-15.5); WBC 11.3 k/uL (3.8-10.6)
[2023-07-12 10:56] LABS: African American GFR (CKD) >90 (>60 ml/min/1.73 sqM); Anion Gap 10 mmol/L; Blood Urea Nitrogen 17 mg/dL (7-17); Calcium 8.1 mg/dL (8.4-10.2); Carbon Dioxide 20 mmol/L (22-30); Chloride 107 mmol/L (98-107); Glucose 138 mg/dL (74-99); Non-African American GFR(CKD) >90 (>60 ml/min/1.73 sqM); Potassium 3.5 mmol/L (3.5-5.1); Sodium 137 mmol/L (137-145)
[2023-07-12] MEDS: ERTAPENEM 1 GM in SODIUM CHLORIDE 0.9% 50 ML IVPB SCH (11:12)
[2023-07-12] MEDS ORDERED: SUMAtriptan succinate 25 MG TAB PO STA (11:20)
--- NOTE | 2023-07-12 11:35 | P.PN ---
Subjective Progress Note Date: 07/12/23 Hospital Course: 48-year-old female with history of hypertension, depression, migraine headaches presenting with flank pain. In the ED, Temperature of 99.9, pulse 105, respiratory rate 18, blood pressure 145/84, saturating at 98% on room air. WBC 7.6, hemoglobin 12.1, potassium 3.5, creatinine 1.02, BUN 22, glucose 183, total bilirubin 0.9, AST 40, ALT 40, ALP 259, urinalysis shows greater than 182 WBCs with clumps, respiratory viral panel negative. Chest x-ray, independently interpreted, under inflated, otherwise no opacities. Patient was started on IV ceftriaxone, admitted for sepsis secondary to acute pyelonephritis. CT abdomen and pelvis shows left 10 mm obstructing distal ureteral calcification with moderate to marked left hydronephrosis, bilateral renal calcifications. Urology consulted, ureteral stent placed. Patient also has ESBL E. coli bacteremia. Started on meropenem. Still having fevers. ID also consulted. Subjective: Patient seen and examined at bedside. Had fevers overnight. Otherwise feeling okay. Pertinent positives and negatives as discussed above, a complete review of systems was performed and all other systems are negative. Vitals Signs Reviewed. General: nontoxic, no distress, appears at stated age, obese Derm: warm, dry, bruising noted on left lower quadrant of abdomen from recent trauma at work place Head: atraumatic, normocephalic, symmetric Eyes: EOMI, no lid lag, anicteric sclera, pupils equal round reactive to light ENT: Nose and ears atraumatic Neck: No thyromegaly, supple Mouth: no lip lesion, mucus membranes moist Cardiovascular: S1S2 reg, no murmur, no edema Lungs: clear to auscultation bilateral, no rhonchi, no rales, no wheeze, no accessory muscle use Abdominal: soft, nontender to palpation, no guarding, no appreciable organomegaly Ext: no gross muscle atrophy, muscle strength muscle strength 5 out of 5 in all 4 extremities, no contractures Neuro: CN II-XII grossly intact Psych: Alert, oriented, appropriate affect Data Reviewed Today: Pertinent Labs: WBC 11.3, hemoglobin 10.2, bicarbonate 20, creatinine 0.71 Imaging: No new imaging Assessment and Plan: Sepsis secondary to Acute pyelonephritis ESBL E. coli bacteremia Left obstructive ureteral stone with moderate to marked hydronephrosis status post ureteral stent Bilateral ureteral stones Prerenal azotemia Metabolic acidosis Normocytic anemia, likely in the setting of acute illness -Repeat blood cultures, no growth to date -Continue IV meropenem -Patient continues to have intermittent fevers -Urology note reviewed, no further interventions -ID consulted -Tylenol as needed for pain and fever -Also on IV Dilaudid 0.5 every 4 hours as needed for pain, and oral no: 5-6 hours as needed -On lactated Ringer's at 1 25 mL an hour Transaminitis, resolved Chronic: Depression Migraine Hypertension DVT ppx: Subcu heparin Code status: Full code Anticipated discharge place: Pending clinical course Anticipated discharge time: Pending clinical course Objective - Vital Signs Vital signs: Vital Signs Temp 99.2 F 07/12/23 07:05 Pulse 83 07/12/23 07:05 Resp 18 07/12/23 07:05 BP 133/80 07/12/23 07:05 Pulse Ox 93 L 07/12/23 07:05 FiO2 Intake & Output 07/11/23 07/12/23 07/12/23 18:59 06:59 18:59 Intake Total 836 Balance 836 Intake: Intake, IV Titration 600 Amount Lactated Ringers 1,000 ml 600 @ 125 mls/hr IV .Q8H [facility] Rx#:[id number] Oral 236 Other: Voiding Method Toilet # Voids 1 - Labs CBC & Chem 7: 07/12/23 09:15 07/12/23 09:15 Labs: Abnormal Lab Results - Last 24 Hours (Table) 07/11/23 07/11/23 07/12/23 Range/Units 07:27 07:27 09:15 WBC 11.5 H 11.3 H (3.8-10.6) k/uL RBC 3.54 L 3.48 L (3.80-5.40) m/uL Hgb 10.1 L 10.2 L (11.4-16.0) gm/dL Hct 31.5 L 31.0 L (34.0-46.0) % RDW 16.2 H 16.2 H (11.5-15.5) % Neutrophils # 8.8 H 7.8 H (1.3-7.7) k/uL Carbon Dioxide 21 L (22-30) mmol/L BUN 21 H (7-17) mg/dL Glucose 153 H (74-99) mg/dL Calcium 8.1 L (8.4-10.2) mg/dL Alkaline Phosphatase 262 H (38-126) U/L Total Protein 5.4 L (6.3-8.2) g/dL Albumin 2.7 L (3.5-5.0) g/dL 07/12/23 Range/Units 09:15 WBC (3.8-10.6) k/uL RBC (3.80-5.40) m/uL Hgb (11.4-16.0) gm/dL Hct (34.0-46.0) % RDW (11.5-15.5) % Neutrophils # (1.3-7.7) k/uL Carbon Dioxide 20 L (22-30) mmol/L BUN (7-17) mg/dL Glucose 138 H (74-99) mg/dL Calcium 8.1 L (8.4-10.2) mg/dL Alkaline Phosphatase (38-126) U/L Total Protein (6.3-8.2) g/dL Albumin (3.5-5.0) g/dL Microbiology - Last 24 Hours (Table) 07/09/23 16:20 Blood Culture Gram Stain - Final Blood Blood Culture - Final Escherichia coli 07/09/23 16:15 Blood Culture Gram Stain - Final Blood Blood Culture - Final Escherichia coli 07/10/23 16:56 Blood Culture - Preliminary Blood 07/10/23 13:45 Blood Culture - Preliminary Blood 07/09/23 14:36 Urine Culture - Final Urine,Clean Catch Escherichia coli
[2023-07-12] MEDS ORDERED: SENNOSIDES 8.6 MG TAB PO PRN (11:39)
[2023-07-12] MEDS: HYDROmorphone 0.5 MG/0.5 ML SYRINGE IVP PRN ×2 (13:33→21:35)
[2023-07-12] MEDS: cloNIDine HCL 0.1 MG TAB PO SCH (21:02)
[2023-07-12] MEDS: ARIPiprazole 2 MG TAB PO SCH (21:02)
[2023-07-12] MEDS: DULoxetine HCL 60 MG CAPSULE.DR PO SCH (21:02)
[2023-07-12] MEDS: PREGABALIN 75 MG CAP PO SCH (21:02)
[2023-07-12] MEDS: VORTIOXETINE HYDROBROMIDE 20 MG TABLET PO SCH (21:03)
[2023-07-12] MEDS: ZOLPIDEM 5 MG TAB PO SCH (21:03)
[2023-07-12] MEDS: MULTIVITAMINS, THERA 1 EACH TAB PO SCH (21:03)
--- NOTE | 2023-07-12 22:31 | P.CONS ---
History of Present Illness - Reason for Consult Consult date: 07/12/23 ESBL E. coli UTI and bacteremia Requesting physician: Som Coronel - Chief Complaint Fever and left flank pain x few days - History of Present Illness Patient is a 48-year-old female with a past medical history significant for hypertension reflux , kidney stone patient presenting to the hospital 3 days ago for evaluation of fever dry cough symptom has been going on for about 4 days before presentation to the hospital patient was complaining of some mild left flank pain describing it more of a sharp pain mild to moderate intensity without radiation patient did have mild burning frequency of urine but no hematuria did have some nausea but no vomiting with the symptoms the patient has been evaluated on presentation to the hospital patient did have low-grade fever however over the last 3 days the patient was running a fever of 101 F patient mild tachycardia but no hypotension or hypoxemia patient on admission to have a normal white count with a slightly up to 11.3 today creatinine has been normal urine has been positive influenza RSV COVID testing was negative patient did have a CT of abdominal pelvis with evidence of moderate left-sided hydrone phrosis secondary to 10 mm obstructing distal left ureteral calculus patient was taken to the OR and the patient is status post cystoscopy and left ureteral stent placement patient cultures are finalized with ESBL E. coli today that has prompted this infectious disease consultation she is growing the pathogen both the blood in the urine Review of Systems Positive point and negatives has been mentioned in the HPI, complete review of systems was performed and all other systems are negative Past Medical History Past Medical History: GERD/Reflux, Hypertension, Osteoarthritis (OA), Pneumonia Additional Past Medical History / Comment(s): kidney stones, environmental allergies, pneumonia aug 2021 post-op, herniated discs., occasional tachycardia. ileus History of Any Multi-Drug Resistant Organisms: None Reported Past Surgical History: Adenoidectomy, Bariatric Surgery, Section, Cholecystectomy, Hysterectomy, Joint Replacement, Orthopedic Surgery, Tonsillectomy Additional Past Surgical History / Comment(s): Left knee replacement, arthroscopy right knee ., lap band 16 yrs ago- no fluid in band per pt. surgery at [facility].) 03/23/22 trigger finger , KIDNEY STONE SX, COLONOSCOPY Past Anesthesia/Blood Transfusion Reactions: Postoperative Nausea & Vomiting (PONV) Additional Past Anesthesia/Blood Transfusion Reaction / Comm: grandmother- difficulty waking up, slight fever. Past Psychological History: Depression Smoking Status: Never smoker Past Alcohol Use History: Rare Past Drug Use History: None Reported - Past Family History Mother Family Medical History: Cancer, Hypertension Medications and Allergies Home Medications Medication Instructions Recorded Confirmed Type Metoprolol Succinate (ER) [Toprol 150 mg PO BID 05/07/18 07/09/23 History XL] Pregabalin [Lyrica] 150 mg PO HS 04/21/20 07/09/23 History Vortioxetine Hydrobromide 20 mg PO HS 04/21/20 07/09/23 History [Trintellix] Zolpidem [Ambien] 10 mg PO HS 04/21/20 07/09/23 History ARIPiprazole [Abilify] 2 mg PO HS 03/10/21 07/09/23 History amLODIPine [Norvasc] 5 mg PO HS 03/10/21 07/09/23 History Acetaminophen Tab [Tylenol] 650 mg PO Q6H PRN 07/09/23 07/09/23 History Cyclobenzaprine [Flexeril] 10 mg PO BID PRN 07/09/23 07/09/23 History DULoxetine HCL [Cymbalta] 60 mg PO HS 07/09/23 07/09/23 History Ibuprofen [Motrin Ib] 400 mg PO Q6H PRN 07/09/23 07/09/23 History Multivitamins, Thera [Multivitamin 1 tab PO HS 07/09/23 07/09/23 History (formulary)] cloNIDine HCL [Catapres] 0.1 mg PO HS 07/09/23 07/09/23 History Ertapenem [INVanz] 1 gm IVPB DAILY each 07/14/23 Rx HYDROcodone/APAP 5-325MG [[place] 1 each PO Q6HR PRN #12 tab 07/14/23 Rx 5-325] Allergies Allergy/AdvReac Type Severity Reaction Status Date / Time ofloxacin [From Floxin] AdvReac Unknown Hallucinati Verified 07/09/23 16:39 ons SAI Inhibitors AdvReac ANGIOEDEMA Verified 07/09/23 16:39 bupropion [From Wellbutrin] AdvReac seizure Verified 07/09/23 16:39 fluoxetine [From Prozac] AdvReac Hallucinati Verified 07/09/23 16:39 ons venlafaxine [From Effexor] AdvReac seizure Verified 07/09/23 16:39 Physical Exam Vitals: Vital Signs Temp Pulse Resp BP BP Pulse Ox 07/12/23 07:05 99.2 F 83 18 133/80 93 L 07/12/23 03:22 101.2 F H 96 19 169/95 95 07/11/23 18:38 99.1 F 84 15 136/86 93 L 07/11/23 13:57 100.4 F H 96 12 129/86 94 L 07/11/23 13:26 102.1 F H Intake and Output 07/11/23 07/12/23 07/12/23 22:59 06:59 14:59 Other: # Voids 1 1 GENERAL DESCRIPTION: Middle-aged female lying in bed, no distress. No tachypnea or accessory muscle of respiration use. HEENT: Shows Pallor , no scleral icterus. Oral mucous membrane is dry. No pharyngeal erythema or thrush NECK: Trachea central, no thyromegaly. LUNGS: Unlabored breathing. Clear to auscultation anteriorly. No wheeze or crackle. HEART: S1, S2, regular rate and rhythm. No loud murmur ABDOMEN: Soft, no tenderness , guarding or rigidity, no organomegaly EXTREMITIES: No edema of feet. SKIN: No rash, no masses palpable. NEUROLOGICAL: The patient is awake, alert, oriented x3, mood and affect normal. Results CBC & Chem 7: 07/14/23 05:39 07/14/23 05:39 Labs: Abnormal Lab Results - Last 24 Hours (Table) 07/11/23 07/11/23 07/12/23 Range/Units 07:27 07:27 09:15 WBC 11.5 H 11.3 H (3.8-10.6) k/uL RBC 3.54 L 3.48 L (3.80-5.40) m/uL Hgb 10.1 L 10.2 L (11.4-16.0) gm/dL Hct 31.5 L 31.0 L (34.0-46.0) % RDW 16.2 H 16.2 H (11.5-15.5) % Neutrophils # 8.8 H 7.8 H (1.3-7.7) k/uL Carbon Dioxide 21 L (22-30) mmol/L BUN 21 H (7-17) mg/dL Glucose 153 H (74-99) mg/dL Calcium 8.1 L (8.4-10.2) mg/dL Alkaline Phosphatase 262 H (38-126) U/L Total Protein 5.4 L (6.3-8.2) g/dL Albumin 2.7 L (3.5-5.0) g/dL Microbiology - Last 24 Hours (Table) 07/10/23 16:56 Blood Culture - Preliminary Blood 07/10/23 13:45 Blood Culture - Preliminary Blood 07/09/23 14:36 Urine Culture - Final Urine,Clean Catch Escherichia coli 07/09/23 16:20 Blood Culture Gram Stain - Preliminary Blood Blood Culture - Preliminary Gram Neg Bacilli 07/09/23 16:15 Blood Culture Gram Stain - Preliminary Blood Blood Culture - Preliminary Gram Neg Bacilli Assessment and Plan (1) Bacteremia Status: Acute Code(s): R78.81 - BACTEREMIA SNOMED Code(s): 7868327 (2) ESBL (extended spectrum beta-lactamase) producing bacteria infection Status: Acute Code(s): A49.9 - BACTERIAL INFECTION, UNSPECIFIED; Z16.12 - EXTENDED SPECTRUM BETA LACTAMASE (ESBL) RESISTANCE SNOMED Code(s): 554548745 (3) Pyelonephritis Status: Acute Code(s): N12 - TUBULO-INTERSTITIAL NEPHRITIS, NOT SPCF ACUTE OR CHRONIC SNOMED Code(s): 67982028 (4) Sepsis Status: Acute Code(s): A41.9 - SEPSIS, UNSPECIFIED ORGANISM SNOMED Code(s): 06680146 Plan: 1-patient with sepsis in this patient with a fever elevated white count Source is complicated UTI in this patient with a left-sided moderate hydronephrosis secondary to distal ureteral stone status post diascopy and left ureteral stent placement 2-ESBL E. coli bacteremia secondary to the complicated UTI. 3-We will discontinue meropenem. 4-Start the patient on Invanz 1 g daily. 5-Blood culture has been repeated and once the patient clears her bacteremia c she will be able to get her midline for outpatient IV antibiotic therapy We will follow on clinical condition and cultures to further adjust medication if needed Thank you for this consultation we will follow the patient along with you Dictation was produced using [employer] software. please excuse any grammatical, word or spelling errors. Time with Patient: Greater than 30
[2023-07-13] MEDS: HYDROmorphone 0.5 MG/0.5 ML SYRINGE IVP PRN ×3 (03:15→21:14)
[2023-07-13] MEDS: ONDANSETRON 4 MG/2 ML VIAL IVP PRN (08:22)
[2023-07-13] MEDS: LACTATED RINGERS 1,000 ML IV SCH (08:22)
[2023-07-13 08:56] LABS: HCT 29.5 % (37.2-46.3); HGB 9.5 d/dL (12.0-15.0); MCHC 32.2 d/dL (32.0-37.0); Mean Platelet Volume 10.9 FL (9.5-12.2); NRBC Per 100 WBC 0 X 10*3/uL (0.00-0.01); Platelet Count 241 X 10*3/uL (140-440); RBC 3.39 X 10*6/uL (4.10-5.20); RDW 16.2 % (11.5-14.5); WBC 12.67 X 10*3/uL (4.50-10.00)
[2023-07-13] MEDS: ERTAPENEM 1 GM in SODIUM CHLORIDE 0.9% 50 ML IVPB SCH (08:59)
[2023-07-13] MEDS: METOPROLOL SUCCINATE (ER) 50 MG TAB.ER.24H PO SCH ×2 (09:03→20:33)
[2023-07-13] MEDS: HEPARIN SODIUM,PORCINE 5,000 UNIT/ML 1 ML VIAL SQ SCH ×2 (09:03→16:09)
[2023-07-13 09:12] LABS: BUN/Creat Ratio 15.14 Ratio (12.00-20.00); Blood Urea Nitrogen 10.6 mg/dL (9.0-27.0); Calcium 8.3 mg/dL (8.7-10.3); Carbon Dioxide 24.5 mmol/L (21.6-31.8); Chloride 102 mmol/L (96-109); Glucose 134 mg/dL (70-110); Potassium 3.3 mmol/L (3.5-5.5); Sodium 139 mmol/L (135-145)
[2023-07-13 09:24] LABS: Basophils # (M) 0.25 X 10*3/uL (0.00-0.10); Eosinophils # (M) 0 X 10*3/uL (0.04-0.35); Lymphocytes # (M) 3.17 X 10*3/uL (0.90-5.00); Metamyelocytes % 3 % (0-0); Monocytes # (M) 0.89 X 10*3/uL (0.20-1.00); Neutrophils # (M) 7.86 X 10*3/uL (1.80-7.70); Neutrophils % (M) 62 %; Nucleated Red Blood Cells 1 /100 WBCS; Promyelocytes # (M) 0.13 k/uL (0); Promyelocytes % 1 %; RBC Morphology Normal (Normal)
[2023-07-13] MEDS ORDERED: POTASSIUM CHLORIDE ER 20 MEQ TAB.ER PO STA (12:26)
--- NOTE | 2023-07-13 12:27 | P.PN ---
Subjective Progress Note Date: 07/13/23 Hospital course: Patient is a very pleasant.48-year-old female with a past medical history of hypertension, depression, and migraine headaches. She presented to the ER on 07/09/23 with a chief complaint of flank pain. In the ED, Temperature of 99.9, pulse 105, respiratory rate 18, blood pressure 145/84, saturating at 98% on room air. WBC 7.6, hemoglobin 12.1, potassium 3.5, creatinine 1.02, BUN 22, glucose 183, total bilirubin 0.9, AST 40, ALT 40, ALP 259, urinalysis shows greater than 182 WBCs with clumps, respiratory viral panel negative. Chest x-ray, independently interpreted, under inflated, otherwise no opacities. Patient was started on IV ceftriaxone, admitted for sepsis secondary to acute pyelonephritis. CT abdomen and pelvis shows left 10 mm obstructing distal u reteral calcification with moderate to marked left hydronephrosis, bilateral renal calcifications. Urology consulted, ureteral stent placed. Patient also has ESBL E. coli bacteremia and was Started on meropenem. Still having fevers and ID consulted. Patient was then placed on IV antibiotics with Invanz 1 g daily. Physical exam: Vital signs reviewed and stable. General: Nontoxic, no distress and appears stated age. Derm: Skin warm and dry, normal coloration for ethnicity. Head: Atraumatic, normocephalic and symmetric. Eyes: EOMs intact, no lid lag, and anicteric sclera Mouth: no lip lesions, mucus membranes moist Cardiovascular: regular rate and rhythm with normal S1S2, no murmur, positive posterior tibial pulses bilaterally, and cap refill < 2 seconds. Lungs: Respirations even, regular, and unlabored on room air. Lungs CTA bilaterally, no rhonchi, no rales, no wheezing, and no accessory muscle usage. Abdominal: soft, nontender to palpation, no guarding, no appreciable or ganomegaly patient reports persistent left flank pain./CVA tenderness. Ext: ROM intact. No gross muscle atrophy, no edema, no contractures Neuro: Speech clear, face symmetrical and CN II-XII grossly intact with no noted focal neuro deficits Psych: Alert and oriented to person, place, time, and situation. Appropriate and pleasant affect. Assessment and Plan of Care: Sepsis secondary to Acute pyelonephritis ESBL E. coli bacteremia secondary to complicated UTI Left obstructive ureteral stone with moderate to marked hydronephrosis status post ureteral stent Bilateral ureteral stones Prerenal azotemia Metabolic acidosis Normocytic anemia, likely in the setting of acute illness -Repeat blood cultures, showing no growth to date. -Continue IV Invanz 1 g daily. -Patient continues to have intermittent fevers -Urology note reviewed, no further interventions -ID following and discontinued meropenem and started patient on Invanz. -Tylenol as needed for mild pain and fever, and [place] 5/325 mg tablets every 6 hours as needed for moderate pain, and Dilaudid 0.5 every 4 hours as needed for severe pain Transaminitis, resolved Depression Migraine Hypertension Patient to continue daily medication regimen with Abilify 2 mg nightly, Cymbalta 60 mg nightly, metoprolol 150 mg by mouth twice daily, Lyrica 150 mg nightly, and Ambien 10 mg nightly. Data reviewed: Vital signs reviewed. Blood pressure 152/103, heart rate 86, respiratory rate 16, temp 99.3F, SpO2 of 93% on room air. Temperature high over the past 24 hours 101.7F. Repeat blood cultures showing no growth to date. CBC showing worsening leukocytosis with WBC count of 12.67, hemoglobin of 9.5,. BMP revealing hyperkalemia with potassium of 3.3 and orders placed for K Dur 40 mEq by mouth 1 dose. CODE STATUS: Full code DVT prophylaxis: Heparin Anticipated discharge date: Clinical course to determine Anticipated discharge place: Clinical course to determine Patient was seen independently by Nurse Pracitioner. This document was prepared using [employer] dictation software. Please allow for errors in manager dish, while rare they do occur. Objective - Vital Signs Vital signs: Vital Signs Temp 99.3 F 07/13/23 07:00 Pulse 86 07/13/23 07:00 Resp 16 07/13/23 07:00 BP 152/103 07/13/23 07:00 Pulse Ox 93 L 07/13/23 07:00 FiO2 Intake & Output 07/12/23 07/13/23 07/13/23 18:59 06:59 18:59 Intake Total 300 Balance 300 Intake: Oral 300 Other: Voiding Method Toilet Toilet Toilet # Voids 2 2 - Labs CBC & Chem 7: 07/13/23 05:46 07/13/23 05:46 Labs: Abnormal Lab Results - Last 24 Hours (Table) 07/12/23 07/13/23 07/13/23 Range/Units 09:15 05:46 05:46 WBC 12.67 H (4.50-10.00) X 10*3/uL RBC 3.39 L (4.10-5.20) X 10*6/uL Hgb 9.5 L (12.0-15.0) d/dL Hct 29.5 L (37.2-46.3) % RDW 16.2 H (11.5-14.5) % Eosinophils # (Manual) 0 L (0.04-0.35) X 10*3/uL Basophils # (Manual) 0.25 H (0.00-0.10) X 10*3/uL Potassium 3.3 L (3.5-5.5) mmol/L Carbon Dioxide 20 L (22-30) mmol/L Anion Gap 12.50 H (4.00-12.00) mmol/L Glucose 138 H 134 H (74-99) mg/dL Calcium 8.1 L 8.3 L (8.4-10.2) mg/dL Microbiology - Last 24 Hours (Table) 07/10/23 16:56 Blood Culture - Preliminary Blood 07/10/23 13:45 Blood Culture - Preliminary Blood 07/09/23 16:20 Blood Culture Gram Stain - Final Blood Blood Culture - Final Escherichia coli 07/09/23 16:15 Blood Culture Gram Stain - Final Blood Blood Culture - Final Escherichia coli
[2023-07-13] MEDS: HYDROcodone/APAP 5-325MG 1 EACH TAB PO PRN (15:08)
--- NOTE | 2023-07-13 20:03 | CT ---
EXAMINATION TYPE: CT abdomen pelvis w con CT DLP: 2735.80 mGycm, Automated exposure control for dose reduction was used. DATE OF EXAM: 07/13/2023 7:48 PM COMPARISON: CT abdomen and 07/11/2022. CLINICAL INDICATION:Female, 48 years old with history of Persistent fevers, increasing leukocytosis; TECHNIQUE: Axial CT of the abdomen and pelvis. Sagittal and coronal reformats were created on a [employer] workstation. Contrast used:85ml mL of Isovue 300 with IV Contrast, (none if empty) Oral contrast used: without Oral Contrast (none if empty) FINDINGS: LOWER CHEST: The lung bases are within normal limits. ABDOMEN LIVER: Unremarkable GALLBLADDER AND BILE DUCTS: Gallbladder surgically absent. No evidence of biliary duct dilation. PANCREAS: Unremarkable. SPLEEN: Unremarkable. ADRENAL GLANDS: Unremarkable. KIDNEYS AND URETERS: Redemonstrated nonobstructive right renal calculus. The right ureter is unremark able. There is interval placement of a left-sided ureteral stent with distal tip within the bladder a nd proximal tip noted within the renal pelvis. Interval improvement of left-sided hydronephrosis. A p unctate left renal calculi are again identified. Lambdoid changes surrounding the left kidney are mil dly improved in the interval. PELVIS BLADDER: Unremarkable REPRODUCTIVE: Unremarkable. ABDOMEN & PELVIS STOMACH AND BOWEL: Postsurgical changes of the stomach with gastric banding identified. No evidence o f bowel obstruction. PERITONEUM/RETROPERITONEUM: No evidence of pneumoperitoneum or free fluid. VASCULATURE: No evidence of aortic aneurysm. MUSCULOSKELETAL: No acute osseous abnormalities. Mild disc degeneration changes are present throughou t the thoracolumbar spine. LYMPH NODES: No gross evidence for lymphadenopathy. SOFT TISSUE/ABDOMINAL WALL: Mild soft tissue anasarca. IMPRESSION: 1. Interval placement of left ureteral stent with improved hydronephrosis and inflammatory changes i nvolving the left kidney. 2. Redemonstration of bilateral nonobstructive renal calculi.
[2023-07-13] MEDS: ZOLPIDEM 5 MG TAB PO SCH (20:33)
[2023-07-13] MEDS: PREGABALIN 75 MG CAP PO SCH (20:33)
[2023-07-13] MEDS: DULoxetine HCL 60 MG CAPSULE.DR PO SCH (20:33)
[2023-07-13] MEDS: VORTIOXETINE HYDROBROMIDE 20 MG TABLET PO SCH (20:33)
[2023-07-13] MEDS: ARIPiprazole 2 MG TAB PO SCH (20:33)
[2023-07-13] MEDS: MULTIVITAMINS, THERA 1 EACH TAB PO SCH (20:33)
[2023-07-13] MEDS: cloNIDine HCL 0.1 MG TAB PO SCH (20:33)
[2023-07-13] MEDS: ACETAMINOPHEN TAB 325 MG TAB PO PRN (21:14)
--- NOTE | 2023-07-13 22:59 | P.PN ---
Subjective Progress Note Date: 07/13/23 Principal diagnosis: Sepsis/UTI/Bacteremia Patient is a 48 female with a past medical history significant for renal stone presenting the hospital with left flank pain nausea and vomiting and fever patient has been diagnosed with a complicated UTI with left-sided hydrone phrosis requiring cystoscopy and left ureteral stent placement urine has been finalized with ESBL E. coli blood culture with the same pathogen. On today's evaluation that is 07/13/2023 patient last temperature was last night afebrile this morning patient is complaining of not feeling very good today and did have an episode of vomiting no chest pain shortness of breath or cough and no diarrhea. Patient white count slightly up to 12.67 today creatinine 0.7 Objective - Vital Signs Vital signs: Vital Signs Temp 99.3 F 07/13/23 07:00 Pulse 86 07/13/23 07:00 Resp 16 07/13/23 07:00 BP 152/103 07/13/23 07:00 Pulse Ox 93 L 07/13/23 07:00 FiO2 Intake & Output 07/12/23 07/13/23 07/13/23 18:59 06:59 18:59 Intake Total 300 Balance 300 Intake: Oral 300 Other: Voiding Method Toilet Toilet Toilet # Voids 2 2 - Exam GENERAL DESCRIPTION: Middle-age female lying in bed in no distress RESPIRATORY SYSTEM: Unlabored breathing , decreased breath sounds at bases HEART: S1 S2 regular rate and rhythm ,no loud murmurs ABDOMEN: Soft , no tenderness EXTREMITIES: No edema feet - Labs CBC & Chem 7: 07/13/23 05:46 07/13/23 05:46 Labs: Abnormal Lab Results - Last 24 Hours (Table) 07/12/23 07/13/23 07/13/23 Range/Units 09:15 05:46 05:46 WBC 12.67 H (4.50-10.00) X 10*3/uL RBC 3.39 L (4.10-5.20) X 10*6/uL Hgb 9.5 L (12.0-15.0) d/dL Hct 29.5 L (37.2-46.3) % RDW 16.2 H (11.5-14.5) % Eosinophils # (Manual) 0 L (0.04-0.35) X 10*3/uL Basophils # (Manual) 0.25 H (0.00-0.10) X 10*3/uL Potassium 3.3 L (3.5-5.5) mmol/L Carbon Dioxide 20 L (22-30) mmol/L Anion Gap 12.50 H (4.00-12.00) mmol/L Glucose 138 H 134 H (74-99) mg/dL Calcium 8.1 L 8.3 L (8.4-10.2) mg/dL Microbiology - Last 24 Hours (Table) 07/10/23 16:56 Blood Culture - Preliminary Blood 07/10/23 13:45 Blood Culture - Preliminary Blood 07/09/23 16:20 Blood Culture Gram Stain - Final Blood Blood Culture - Final Escherichia coli 07/09/23 16:15 Blood Culture Gram Stain - Final Blood Blood Culture - Final Escherichia coli Assessment and Plan (1) Sepsis Current Visit: Yes Status: Acute Code(s): A41.9 - SEPSIS, UNSPECIFIED ORGANISM SNOMED Code(s): 64096196 (2) ESBL (extended spectrum beta-lactamase) producing bacteria infection Current Visit: Yes Status: Acute Code(s): A49.9 - BACTERIAL INFECTION, UNSPECIFIED; Z16.12 - EXTENDED SPECTRUM BETA LACTAMASE (ESBL) RESISTANCE SNOMED Code(s): 278915847 (3) Bacteremia Current Visit: Yes Status: Acute Code(s): R78.81 - BACTEREMIA SNOMED Code(s): 8403589 Plan: 1-patient with sepsis in this patient with a fever elevated white count Source is complicated UTI in this patient with a left-sided moderate hydronephrosis secondary to distal ureteral stone status post diascopy and left ureteral stent placement 2-ESBL E. coli bacteremia secondary to the complicated UTI. 3we will keep the patient on Invanz 1 g daily she did have episode of vomiting and white count slightly up we will monitor the patient in hospital and repeat his CBC and a CRP with a.m. lab to make sure they are trending down Dictation was produced using [email or web address] dictation software. please excuse any grammatical, word or spelling errors.
[2023-07-14] MEDS: HEPARIN SODIUM,PORCINE 5,000 UNIT/ML 1 ML VIAL SQ SCH ×2 (00:06→08:23)
[2023-07-14 03:41] VITALS: RESP 16
[2023-07-14] MEDS: ONDANSETRON 4 MG/2 ML VIAL IVP PRN (06:18)
[2023-07-14] MEDS: HYDROmorphone 0.5 MG/0.5 ML SYRINGE IVP PRN (06:18)
[2023-07-14] MEDS: METOPROLOL SUCCINATE (ER) 50 MG TAB.ER.24H PO SCH (08:23)
[2023-07-14] MEDS: ERTAPENEM 1 GM in SODIUM CHLORIDE 0.9% 50 ML IVPB SCH (08:23)
[2023-07-14 08:24] VITALS: BP 123/78; PULSE 82; TEMP 99
[2023-07-14 09:04] LABS: HCT 31.1 % (37.2-46.3); HGB 9.7 d/dL (12.0-15.0); MCH 27.3 pg (27.0-32.0); MCHC 31.2 d/dL (32.0-37.0); MCV 87.6 FL (80.0-97.0); Mean Platelet Volume 10.6 FL (9.5-12.2); NRBC Per 100 WBC 0 X 10*3/uL (0.00-0.01); Platelet Count 302 X 10*3/uL (140-440); RBC 3.55 X 10*6/uL (4.10-5.20); RDW 16.2 % (11.5-14.5); WBC 13.58 X 10*3/uL (4.50-10.00)
[2023-07-14 09:09] LABS: ALT 29 U/L (8-44); AST 19 U/L (13-35); Albumin 2.9 d/dL (3.8-4.9); Albumin/Globulin Ratio 1.07 Ratio (1.60-3.17); Alkaline Phosphatase 176 U/L (41-126); BUN/Creat Ratio 17.67 Ratio (12.00-20.00); Blood Urea Nitrogen 10.6 mg/dL (9.0-27.0); Calcium 8.8 mg/dL (8.7-10.3); Carbon Dioxide 30.6 mmol/L (21.6-31.8); Chloride 103 mmol/L (96-109); Globulin 2.7 d/dL (1.6-3.3); Glucose 141 mg/dL (70-110); Magnesium 1.7 mg/dL (1.5-2.4); Potassium 3.6 mmol/L (3.5-5.5); Sodium 141 mmol/L (135-145); Total Bilirubin 0.3 mg/dL (0.3-1.2); Total Protein 5.6 d/dL (6.2-8.2)
[2023-07-14 11:11] VITALS: BMI 45.2
[2023-07-14] MEDS: HYDROcodone/APAP 5-325MG 1 EACH TAB PO PRN (11:43)
--- NOTE | 2023-07-14 13:44 | P.DS ---
Providers Date of admission: 07/09/23 15:18 Expected date of discharge: 07/14/23 Attending physician: Som Coronel MD Consults: 07/09/23 17:24 Consult Physician Urgent Consulting Provider: Marlon Decker Consult Reason/Comments: left ureteral stone, obstructing Do you want consulting provider notified?: Yes 07/12/23 08:01 Consult Physician Routine Consulting Provider: Taye Motley Consult Reason/Comments: ESBL e.coli UTI, bacteremia Do you want consulting provider notified?: Yes Primary care physician: [facility] Course: Discharge Diagnosis: Sepsis secondary to Acute pyelonephritis and ESBL E. coli bacteremia.resulting from complicated UTI. Repeat blood cultures showing no growth to date. Midline placed andPatient discharged home on IV antibiotics with Invanz and discharged home with [facility] center and homecare. Patient to follow up outpatient with PCP, urologist, and infectious disease specialist as discussed. ESBL E. coli bacteremia secondary to complicated UTI Left obstructive ureteral stone with moderate to marked hydronephrosis status post ureteral stent Bilateral ureteral stones Prerenal azotemia Metabolic acidosis Normocytic anemia, likely in the setting of acute illness Transaminitis, resolved Depression Migraine Hypertension Hospital Course: Patient is a very pleasant.48-year-old female with a past medical history of hypertension, depression, and migraine headaches. She presented to the ER on 07/09/23 with a chief complaint of flank pain. In the ED, Temperature of 99.9, pulse 105, respiratory rate 18, blood pressure 145/84, saturating at 98% on room air. WBC 7.6, hemoglobin 12.1, potassium 3.5, creatinine 1.02, BUN 22, glucose 183, total bilirubin 0.9, AST 40, ALT 40, ALP 259, urinalysis shows greater than 182 WBCs with clumps, respiratory viral panel negative. Chest x-ray, independently interpreted, under inflated, otherwise no opacities. Patient was started on IV ceftriaxone, admitted for sepsis secondary to acute pyelonephritis. CT abdomen and pelvis shows left 10 mm obstructing distal uret eral calcification with moderate to marked left hydronephrosis, bilateral renal calcifications. Urology consulted, ureteral stent placed. Patient also has ESBL E. coli bacteremia and was Started on meropenem. Still having fevers and ID consulted. Patient was then placed on IV antibiotics with Invanz 1 g daily and a.repeat CT abdomen and pelvis was completed. CT revealed interval placement of left ureteral stent with improved hydronephrosis and inflammatory changes involving the left kidney and redemonstration of bilateral nonobstructive renal calculi. Patient now reporting improvement in painand repeat blood cultures showing no growth to date. Discussed with infectious disease physician and a midline placed and patient being discharged home on IV antibiotics with.Invanz. Patient to follow up outpatient with PCP, infectious disease specialist, and urology as discussed. Patient discharged home with [facility] and [facility] infusion center. Physical exam: Vital signs reviewed and stable. General: Nontoxic, no distress and appears stated age. Derm: Skin warm and dry, normal coloration for ethnicity. Head: Atraumatic, normocephalic and symmetric. Eyes: EOMs intact, no lid lag, and anicteric sclera Mouth: no lip lesions, mucus membranes moist Cardiovascular: regular rate and rhythm with normal S1S2, no murmur, positive posterior tibial pulses bilaterally, and cap refill < 2 seconds. Lungs: Respirations even, regular, and unlabored on room air. Lungs CTA bilaterally, no rhonchi, no rales, no wheezing, and no accessory muscle usage. Abdominal: soft, nontender to palpation, no guarding, no appreciable organomegaly. No CVA tenderness. Ext: ROM intact. No gross muscle atrophy, no edema, no contractures Neuro: Speech clear, face symmetrical and CN II-XII grossly intact with no noted focal neuro deficits Psych: Alert and oriented to person, place, time, and situation. Appropriate and pleasant affect. A total of 35 minutes of time were spent preparing this complex discharge summary. Pt was discharged on 07/14/23 at 1:41 PM. Patient was seen independently by Nurse Practitioner. This document was prepared using [employer] dictation software. Please allow for errors in lining machine operator while rare they do occur. Patient Condition at Discharge: Stable Plan - Discharge Summary New Discharge Prescriptions: New Ertapenem [INVanz] 1 gm IVPB DAILY each HYDROcodone/APAP 5-325MG [Leland 5-325] 1 each PO Q6HR PRN #12 tab PRN Reason: Pain Continue Metoprolol Succinate (ER) [Toprol XL] 150 mg PO BID Zolpidem [Ambien] 10 mg PO HS Vortioxetine Hydrobromide [Trintellix] 20 mg PO HS Pregabalin [Lyrica] 150 mg PO HS ARIPiprazole [Abilify] 2 mg PO HS Multivitamins, Thera [Multivitamin (formulary)] 1 tab PO HS Ibuprofen [Motrin Ib] 400 mg PO Q6H PRN PRN Reason: Fever And/ Or Pain Acetaminophen Tab [Tylenol] 650 mg PO Q6H PRN PRN Reason: Fever amLODIPine [Norvasc] 5 mg PO HS cloNIDine HCL [Catapres] 0.1 mg PO HS DULoxetine HCL [Cymbalta] 60 mg PO HS Cyclobenzaprine [Flexeril] 10 mg PO BID PRN PRN Reason: Muscle Spasm Discharge Medication List Metoprolol Succinate (ER) [Toprol XL] 150 mg PO BID 05/07/18 [History] Pregabalin [Lyrica] 150 mg PO HS 04/21/20 [History] Vortioxetine Hydrobromide [Trintellix] 20 mg PO HS 04/21/20 [History] Zolpidem [Ambien] 10 mg PO HS 04/21/20 [History] ARIPiprazole [Abilify] 2 mg PO HS 03/10/21 [History] amLODIPine [Norvasc] 5 mg PO HS 03/10/21 [History] Acetaminophen Tab [Tylenol] 650 mg PO Q6H PRN 07/09/23 [History] Cyclobenzaprine [Flexeril] 10 mg PO BID PRN 07/09/23 [History] DULoxetine HCL [Cymbalta] 60 mg PO HS 07/09/23 [History] Ibuprofen [Motrin Ib] 400 mg PO Q6H PRN 07/09/23 [History] Multivitamins, Thera [Multivitamin (formulary)] 1 tab PO HS 07/09/23 [History] cloNIDine HCL [Catapres] 0.1 mg PO HS 07/09/23 [History] Ertapenem [INVanz] 1 gm IVPB DAILY each 07/14/23 [Rx] HYDROcodone/APAP 5-325MG [Leland 5-325] 1 each PO Q6HR PRN #12 tab 07/14/23 [Rx] Follow up Appointment(s)/Referral(s): Rosa Stewart MD [Primary Care Provider] - 1-2 days [facility], [NON-STAFF] - 1 Week [facility], [REFERRING] - 1 Week Taye Motley MD [STAFF PHYSICIAN] - 1 Week Fam Berry MD [STAFF PHYSICIAN] - 1 Week Activity/Diet/Wound Care/Special Instructions: Patient to follow up with [facility] and [facility]. [facility] will deliver medications and supplies this evening 07/14/23 between 6:00PM and 8:00PM. Discharge Disposition: HOME WITH HOME HEALTH SERVICES
--- NOTE | 2023-07-14 14:39 | P.PN ---
Subjective Progress Note Date: 07/14/23 Principal diagnosis: Sepsis/UTI/Bacteremia Patient is a 48 female with a past medical history significant for renal stone presenting the hospital with left flank pain nausea and vomiting and fever patient has been diagnosed with a complicated UTI with left-sided hydrone phrosis requiring cystoscopy and left ureteral stent placement urine has been finalized with ESBL E. coli blood culture with the same pathogen. On today's evaluation that is 07/14/2023, the patient did have a low-grade fever 100.7 last night, the patient is afebrile since then, the patient is breathing comfortably on room air and no need for supplemental oxygen, the patient denies any chest pain or cough, patient denies any further nausea/vomiting or diarrhea and no abdominal pain Patient white count slightly up to 13.5 feet today creatinine 0.6, CT abdominal pelvis completed last night did shows overall improvement the left kidney Objective - Vital Signs Vital signs: Vital Signs Temp 99.0 F 07/14/23 07:50 Pulse 82 07/14/23 07:50 Resp 16 07/14/23 07:50 BP 123/78 07/14/23 07:50 Pulse Ox 93 L 07/14/23 07:50 FiO2 Intake & Output 07/13/23 07/14/23 07/14/23 18:59 06:59 18:59 Intake Total 740 168 Balance 740 168 Intake: Oral 740 168 Other: Voiding Method Toilet Toilet Toilet # Voids 1 2 - Exam GENERAL DESCRIPTION: Middle-age female lying in bed in no distress RESPIRATORY SYSTEM: Unlabored breathing , decreased breath sounds at bases HEART: S1 S2 regular rate and rhythm ,no loud murmurs ABDOMEN: Soft , no tenderness EXTREMITIES: No edema feet - Labs CBC & Chem 7: 07/14/23 05:39 07/14/23 05:39 Labs: Abnormal Lab Results - Last 24 Hours (Table) 07/14/23 07/14/23 Range/Units 05:39 05:39 WBC 13.58 H (4.50-10.00) X 10*3/uL RBC 3.55 L (4.10-5.20) X 10*6/uL Hgb 9.7 L (12.0-15.0) d/dL Hct 31.1 L (37.2-46.3) % MCHC 31.2 L (32.0-37.0) d/dL RDW 16.2 H (11.5-14.5) % Glucose 141 H (70-110) mg/dL Alkaline Phosphatase 176 H (41-126) U/L Total Protein 5.6 L (6.2-8.2) d/dL Albumin 2.9 L (3.8-4.9) d/dL Albumin/Globulin Ratio 1.07 L (1.60-3.17) Ratio Microbiology - Last 24 Hours (Table) 07/10/23 16:56 Blood Culture - Preliminary Blood 07/10/23 13:45 Blood Culture - Preliminary Blood Assessment and Plan (1) Sepsis Status: Acute Code(s): A41.9 - SEPSIS, UNSPECIFIED ORGANISM SNOMED Code(s): 09196280 (2) ESBL (extended spectrum beta-lactamase) producing bacteria infection Status: Acute Code(s): A49.9 - BACTERIAL INFECTION, UNSPECIFIED; Z16.12 - EXTENDED SPECTRUM BETA LACTAMASE (ESBL) RESISTANCE SNOMED Code(s): 939809131 (3) Bacteremia Status: Acute Code(s): R78.81 - BACTEREMIA SNOMED Code(s): 2807100 Plan: 1-patient with sepsis in this patient with a fever elevated white count Source is complicated UTI in this patient with a left-sided moderate hydronephrosis secondary to distal ureteral stone status post diascopy and left ureteral stent placement 2-ESBL E. coli bacteremia secondary to the complicated UTI. 3patient has shown clinical improvement with a repeat CAT scan did shows improv ement as well plan is to continue the patient on Invanz 1 g daily for 2 weeks and close outpatient follow-up prescription was provided to the caser shoe parts Dictation was produced using [employer] software. please excuse any grammatical, word or spelling errors. Time with Patient: Less than 30
== END 2023-07-14 14:30 | disposition home health service (06) | DRG 854 ==
LOC: EC 12:33 → 6NMEDSUR 15:17 → OBSVTOIN 15:18 → 6NMEDSUR 16:41
PROVIDERS: ADMIT Student in an Organized Health Care Education/Training Program; ATTEND Student in an Organized Health Care Education/Training Program
PROC: 0T778DZ Dilation of Left Ureter with Intraluminal Device, Via Natural or Artificial Opening Endoscopic (ICD-10-PCS; principal; 2023-07-10 10:20)
PROC: 05HF33Z Insertion of Infusion Device into Left Cephalic Vein, Percutaneous Approach (ICD-10-PCS; 2023-07-11)
DX: A41.51 Sepsis due to Escherichia coli [E. coli] (principal); E87.20 Acidosis, unspecified; N13.6 Pyonephrosis; Z16.12 Extended spectrum beta lactamase (ESBL) resistance; Z20.822 Contact with and (suspected) exposure to COVID-19; D64.9 Anemia, unspecified; I10 Essential (primary) hypertension; F32.A Depression, unspecified; K21.9 Gastro-esophageal reflux disease without esophagitis; G43.909 Migraine, unspecified, not intractable, without status migrainosus; M19.90 Unspecified osteoarthritis, unspecified site; R74.01 Elevation of levels of liver transaminase levels; R79.89 Other specified abnormal findings of blood chemistry; Z79.899 Other long term (current) drug therapy; Z98.84 Bariatric surgery status; Z96.652 Presence of left artificial knee joint; Z87.442 Personal history of urinary calculi; Z71.3 Dietary counseling and surveillance; Z88.8 Allergy status to other drugs, medicaments and biological substances
CPT/HCPCS: 36410; 36415; 71046; 74177; 76770; 76937; 80048; 80053; 81001; 83605; 83735; 85025; 85027; 86308; 87040; 87077; 87086; 87186; 87636; 96361; 96374; 99285

== ENCOUNTER 2023-08-01 20:10 | Emergency (ER) | payer MEDICAID ==
[2023-08-01 20:51] LABS: Basophils # (A) 0.1 k/uL (0-0.2); Basophils % (A) 1 %; Eosinophils # (A) 0.4 k/uL (0-0.7); Eosinophils % (A) 5 %; HCT 35.6 % (34.0-46.0); HGB 12.2 gm/dL (11.4-16.0); Lymphocytes # (A) 2.7 k/uL (1.0-4.8); Lymphocytes % (A) 35 %; MCH 29.2 pg (25.0-35.0); MCHC 34.2 g/dL (31.0-37.0); MCV 85.5 fL (80.0-100.0); Mean Platelet Volume 7.6; Monocytes # (A) 0.4 k/uL (0-1.0); Monocytes % (A) 6 %; Neutrophils # (A) 3.9 k/uL (1.3-7.7); Neutrophils % (A) 50 %; Platelet Count 216 k/uL (150-450); RBC 4.17 m/uL (3.80-5.40); RDW 15.1 % (11.5-15.5); WBC 7.8 k/uL (3.8-10.6)
[2023-08-01] MEDS ORDERED: SODIUM CHLORIDE 0.9% 1,000 ML IV STA (20:54)
--- NOTE | 2023-08-01 21:09 | ED ---
Chest Pain HPI - General Chief Complaint: Chest Pain Stated Complaint: Chest Pain Time Seen by Provider: 08/01/23 20:37 Source: patient, RN notes reviewed, old records reviewed Mode of arrival: wheelchair Limitations: no limitations - History of Present Illness Initial Comments: This is a 48-year-old female to the emergency department today. Patient pr esents today for evaluation multiple complaints chest pain left leg pain. In recent medical history is inpatient hospitalization with significant sepsis kidney stones urinary tract infection. Patient did admit to significant debility from this infection and the hospital she has concern for blood clot. Patient has pain and left lower extremity as well as chest pain that started today MD Complaint: chest pain -: days(s) Onset: during rest, during exertion Pain Location: left chest Pain Radiation: LUE Severity: mild Quality: tightness, heaviness Consistency: constant Improves With: nothing Worsens With: nothing Anginal Symptoms: dyspnea Treatments Prior to Arrival: none - Related Data Home Medications Medication Instructions Recorded Confirmed Metoprolol Succinate (ER) [Toprol 150 mg PO BID 05/07/18 08/04/23 XL] Pregabalin [Lyrica] 150 mg PO HS 04/21/20 08/04/23 Vortioxetine Hydrobromide 20 mg PO HS 04/21/20 08/04/23 [Trintellix] Zolpidem [Ambien] 10 mg PO HS 04/21/20 08/04/23 ARIPiprazole [Abilify] 2 mg PO HS 03/10/21 08/04/23 amLODIPine [Norvasc] 5 mg PO HS 03/10/21 08/04/23 Cyclobenzaprine [Flexeril] 10 mg PO BID PRN 07/09/23 08/04/23 DULoxetine HCL [Cymbalta] 60 mg PO HS 07/09/23 08/04/23 cloNIDine HCL [Catapres] 0.1 mg PO HS 07/09/23 08/04/23 Ketorolac [Toradol] 10 mg PO Q6HR PRN 08/01/23 08/04/23 Allergies Allergy/AdvReac Type Severity Reaction Status Date / Time ofloxacin [From Floxin] AdvReac Unknown Hallucinati Verified 08/04/23 15:00 ons SAI Inhibitors AdvReac ANGIOEDEMA Verified 08/04/23 15:00 bupropion [From Wellbutrin] AdvReac seizure Verified 08/04/23 15:00 fluoxetine [From Prozac] AdvReac Hallucinati Verified 08/04/23 15:00 ons venlafaxine [From Effexor] AdvReac seizure Verified 08/04/23 15:00 Review of Systems ROS Statement: Those systems with pertinent positive or pertinent negative responses have been documented in the HPI. ROS Other: All systems not noted in ROS Statement are negative. Past Medical History Past Medical History: GERD/Reflux, Hypertension, Osteoarthritis (OA), Pneumonia Additional Past Medical History / Comment(s): kidney stones, environmental allergies, pneumonia aug 2021 post-op, herniated discs., occasional tachycardia. ileus History of Any Multi-Drug Resistant Organisms: ESBL Date of last positivie culture/infection: 07/14/23 MDRO Source:: blood and urine Past Surgical History: Adenoidectomy, Bariatric Surgery, Section, Cholecystectomy, Hysterectomy, Joint Replacement, Orthopedic Surgery, Tonsillectomy Additional Past Surgical History / Comment(s): Left knee replacement, arthroscopy right knee ., lap band 16 yrs ago- no fluid in band per pt. surgery at [facility].) 03/23/22 trigger finger , KIDNEY STONE SX, COLONOSCOPY Past Anesthesia/Blood Transfusion Reactions: Postoperative Nausea & Vomiting (PONV) Additional Past Anesthesia/Blood Transfusion Reaction / Comment(s): grandmother- difficulty waking up, slight fever. Past Psychological History: Depression Smoking Status: Never smoker Past Alcohol Use History: Rare Past Drug Use History: None Reported - Past Family History Mother Family Medical History: Cancer, Hypertension General Exam Limitations: no limitations General appearance: alert, in no apparent distress, anxious Head exam: Present: atraumatic, normocephalic, normal inspection Eye exam: Present: normal appearance, PERRL, EOMI. Absent: scleral icterus, conjunctival injection, periorbital swelling ENT exam: Present: normal exam, mucous membranes moist Neck exam: Present: normal inspection. Absent: tenderness, meningismus, lymphadenopathy Respiratory exam: Present: normal lung sounds bilaterally. Absent: respiratory distress, wheezes, rales, rhonchi, stridor Cardiovascular Exam: Present: normal rhythm, tachycardia, normal heart sounds. Absent: systolic murmur, diastolic murmur, rubs, gallop, clicks GI/Abdominal exam: Present: soft, normal bowel sounds. Absent: distended, tenderness, guarding, rebound, rigid Extremities exam: Present: normal inspection, full ROM, normal capillary refill. Absent: tenderness, pedal edema, joint swelling, calf tenderness Back exam: Present: normal inspection Neurological exam: Present: alert, oriented X3, CN II-XII intact Psychiatric exam: Present: normal affect, normal mood Skin exam: Present: warm, dry, intact, normal color. Absent: rash Course Vital Signs 08/01/23 08/01/23 08/01/23 20:11 21:27 22:00 Temperature 98.5 F Pulse Rate 115 H 101 H Pulse Rate [ 109 H Left Sitting Radial] Respiratory 20 22 Rate Blood Pressure 174/106 163/106 O2 Sat by Pulse 97 96 Oximetry 08/01/23 08/02/23 08/02/23 23:00 00:00 01:00 Temperature 97.8 F Pulse Rate 97 108 H 98 Pulse Rate [ Left Sitting Radial] Respiratory 22 18 26 H Rate Blood Pressure 157/90 150/95 155/91 O2 Sat by Pulse 98 95 96 Oximetry - Reevaluation(s) Reevaluation #1: 08/01/23 21:30 Medical records reviewed Reevaluation #2: 08/01/23 21:30 Patient symptoms unchanged Studies CT is negative for acute disease. Ultrasound is negative for acute disease Reevaluation #3: patient informed results questions answered Reevaluation #4: 08/01/23 21:30 Was pt. sent in by a medical professional or institution (, DAR, SCALE AGENT, urgent care, hospital, or penitentiary...) When possible be specific @ -no Did you speak to anyone other than the patient for history (EMS, parent, family, police, friend...)? What history was obtained from this source @ -no Did you review nursing and triage notes (agree or disagree)? Why? @ -agree Are old charts reviewed (outside hosp., previous admission, EMS record, old EKG, old radiological studies, urgent care reports/EKG's, penitentiary records)? Report findings @ -yes Differential Diagnosis (chest pain, altered mental status, abdominal pain women, abdominal pain men, vaginal bleeding, weakness, fever, dyspnea, syncope, headache, dizziness, GI bleed, back pain, seizure, CVA, palpatations, mental health, musculoskeletal)? @ -prior EKG interpreted by me (3pts min.). @ -yes X-rays interpreted by me (1pt min.). @ -no CT interpreted by me (1pt min.). @ -yes U/S interpreted by me (1pt. min.). @ -yes What testing was considered but not performed or refused? (CT, X-rays, U/S, labs)? Why? @ -none What meds were considered but not given or refused? Why? @ -none Did you discuss the management of the patient with other professionals ( professionals i.e. , PA, SCALE AGENT, lab, RT, psych nurse, older adult social work specialist, pool cleaner, teacher, forestry technical officer, case coordinator)? Give summary @ -no Was smoking cessation discussed for >3mins.? @ -no Was critical care preformed (if so, how long)? @ -no Were there social determinants of health that impacted care today? How? (Homelessness, low income, unemployed, alcoholism, drug addiction, transportation, low edu. Level, literacy, decrease access to med. care, custodial, rehab)? @ -none Was there de-escalation of care discussed even if they declined (Discuss DNR or withdrawal of care, Hospice)? DNR status @ -no What co-morbidities impacted this encounter? (DM, HTN, Smoking, COPD, CAD, Cancer, CVA, ARF, Chemo, Hep., AIDS, mental health diagnosis, sleep apnea, morbid obesity)? @ -none Was patient admitted / discharged? Hospital course, mention meds given and route, prescriptions, significant lab abnormalities, going to OR and other pertinent info. @ - 48 female to the emergency department for evaluation of chest pain weakness leg pain. Patient has no DVT test CT angios chest and ultrasound of left lower extremity negative testing is negative patient can be discharged Discharged Undiagnosed new problem with uncertain prognosis? @ -no Drug Therapy requiring intensive monitoring for toxicity (Heparin, Nitro, Insulin, Cardizem)? @ -no Were any procedures done? @ -no Diagnosis/symptom? @ -Chest pain, leg pain, weakness, dizziness Acute, or Chronic, or Acute on Chronic? @ -Acute Uncomplicated (without systemic symptoms) or Complicated (systemic symptoms)? @ -Complicated Side effects of treatment? @ -no Exacerbation, Progression, or Severe Exacerbation? @ -exacerbation Poses a threat to life or bodily function? How? (Chest pain, [place], [place], pneumonia, PE, COPD, DKA, ARF, appy, cholecystitis, CVA, Diverticulitis, Homicidal, Suicidal, threat to staff... and all critical care pts) @ -yes if possible DVT and PE Reevaluation #5: 08/01/23 21:30 Differential Chest Pain: Stable Angina, Unstable Angina, STEMI, NSTEMI Aortic Dissection, Pneumothorax, Musculoskeletal, Esophageal Spasm GERD, Cholecystitis, Pancreatitis, Zoster, this is not meant to be an all-inclusive list. Chest Pain MDM - MDM 48 female to the emergency department for evaluation of chest pain weakness leg pain. Patient has no DVT test CT angios chest and ultrasound of left lower extremity negative testing is negative patient can be discharged Disposition Clinical Impression: Chest pain, Atypical chest pain, Left leg pain Disposition: HOME SELF-CARE Condition: Fair Instructions (If sedation given, give patient instructions): Chest Pain (ED), Leg Pain (ED) Is patient prescribed a controlled substance at d/c from ED?: No Referrals: Rosa Stewart MD [Primary Care Provider] - 1-2 days Time of Disposition: 23:00
[2023-08-01 21:11] LABS: ALT 44 U/L (4-34); AST 43 U/L (14-36); African American GFR (CKD) >90 (>60 ml/min/1.73 sqM); Albumin 4.1 g/dL (3.5-5.0); Alkaline Phosphatase 160 U/L (38-126); Anion Gap 11 mmol/L; Blood Urea Nitrogen 11 mg/dL (7-17); Calcium 9.4 mg/dL (8.4-10.2); Carbon Dioxide 24 mmol/L (22-30); Chloride 103 mmol/L (98-107); Glucose 276 mg/dL (74-99); Magnesium 1.6 mg/dL (1.6-2.3); Non-African American GFR(CKD) >90 (>60 ml/min/1.73 sqM); Potassium 3.8 mmol/L (3.5-5.1); Sodium 138 mmol/L (137-145); Total Bilirubin 0.4 mg/dL (0.2-1.3); Total Protein 7.3 g/dL (6.3-8.2)
[2023-08-01 21:16] LABS: INR 0.8 (<1.2); Partial Thromboplastin Time 23.3 sec (22.0-30.0); Prothrombin Time 9.6 sec (10.0-12.5)
--- NOTE | 2023-08-01 23:19 | US ---
EXAMINATION TYPE: US venous doppler duplex LE LT DATE OF EXAM: 08/01/2023 8:55 PM COMPARISON: NONE CLINICAL INDICATION: Female, 48 years old with history of pe; Left calf pain. Pt states now she is roy ving chest pain. No hx of DVT. NOt on blood thinners SIDE PERFORMED: Left TECHNIQUE: The lower extremity deep venous system is examined utilizing real time linear array sonog ann marie with graded compression, doppler sonography and color-flow sonography. VESSELS IMAGED: Common Femoral Vein Deep Femoral Vein Greater Saphenous Vein * Femoral Vein Popliteal Vein Small Saphenous Vein * Proximal Calf Veins (* superficial vessels) Left Leg: No evidence for DVT IMPRESSION: No evidence of DVT in the left lower extremity.
[2023-08-02] MEDS ORDERED: KETOROLAC 15 MG/ML 1 ML VIAL IVP STA (00:48)
--- NOTE | 2023-08-02 01:00 | CT ---
EXAM: CT Angiography Chest With Intravenous Contrast CLINICAL HISTORY: ITS.REASON CT Reason: pe TECHNIQUE: Axial computed tomographic angiography images of the chest with intravenous contrast. CTDI is 29.4 mGy and DLP is 730.9 mGy-cm. This CT exam was performed using one or more of the following dose reduction techniques: automated exposure control, adjustment of the mA and/or kV according to patient size, and/or use of iterative reconstruction technique. MIP reconstructed images were created and reviewed. COMPARISON: No relevant prior studies available. FINDINGS: Pulmonary arteries: Suboptimal bolus timing. No central pulmonary embolism. Aorta: No acute findings. Normal caliber. No dissection. Lungs: Unremarkable. Pleural space: Unremarkable. Heart: Unremarkable. Mediastinum: Small hiatal hernia. Bones/joints: No acute fracture. Soft tissues: Unremarkable. Lymph nodes: Unremarkable. Upper abdomen: Elevated right hemidiaphragm. IMPRESSION: 1. Suboptimal bolus timing. No central pulmonary embolism. 2. Small hiatal hernia. 3. Elevated right hemidiaphragm.
[2023-08-02 01:42] VITALS: BP 155/91; PULSE 98; RESP 26; TEMP 97.8
== END 2023-08-02 01:45 | disposition home or self-care (01) ==
LOC: EC 20:10
DX: R07.89 Other chest pain (principal); M79.605 Pain in left leg; K44.9 Diaphragmatic hernia without obstruction or gangrene; K21.9 Gastro-esophageal reflux disease without esophagitis; I10 Essential (primary) hypertension; M19.90 Unspecified osteoarthritis, unspecified site; Z86.59 Personal history of other mental and behavioral disorders; Z88.8 Allergy status to other drugs, medicaments and biological substances; Z88.1 Allergy status to other antibiotic agents; Z90.49 Acquired absence of other specified parts of digestive tract; Z79.1 Long term (current) use of non-steroidal anti-inflammatories (NSAID)
CPT/HCPCS: 99285 ×2; 96374 ×2; 96361 ×2; 36415; 93005; 85379; 80053; 83735; 84484; 85025; 85610; 85730; 93971; 71275; J1885; Q9967

== ENCOUNTER → 2023-08-02 | Outpatient (CLI) | payer MEDICAID ==
[2023-08-02 21:21] LABS: Appearance,Urine Clear (Clear); Bilirubin,Urine Negative (Negative); Blood,Urine Large (Negative); Color,Urine Yellow (Yellow); Ketones,Urine Negative (Negative); Nitrite,Urine Negative (Negative); PH, Urine 7.5; Specific Gravity,Urine 1.014 (1.001-1.030); Urobilinogen,Urine 0.2 E.U./DL
[2023-08-02 21:50] LABS: Bacteria,Urine Trace
== END | disposition home or self-care (01) ==
LOC: LABPAT 14:25
PROVIDERS: ATTEND Urology
DX: Z01.812 Encounter for preprocedural laboratory examination (principal); N20.1 Calculus of ureter; R31.29 Other microscopic hematuria
CPT/HCPCS: 81001; 87077; 87086; 87186

== ENCOUNTER 2023-08-09 09:01 | Day surgery (SDC) | payer MEDICAID ==
--- NOTE | 2023-08-07 20:07 | P.GSHP ---
History of Present Illness H&P Date: 08/07/23 48 yo female with a history of stones. Was recently in the hospital with an obstructing left ureteral stone with pyonephrosis. A stent was palced. She has done well and now comes for formal left ureteral stone and stent removal. - Constitutional Constitutional: Denies chills, Denies fever - EENT Eyes: denies blurred vision, denies pain Ears, nose, mouth and throat: Denies headache, Denies sore throat - Cardiovascular Cardiovascular: Denies chest pain, Denies shortness of breath - Respiratory Respiratory: Denies cough, Denies 7 - Gastrointestinal Gastrointestinal: Denies abdominal pain, Denies diarrhea, Denies nausea, Denies vomiting - Genitourinary (Female) Genitourinary: Denies dysuria, Denies hematuria - Genitourinary (Male) Genitourinary: Denies dysuria, Denies hematuria - Musculoskeletal Musculoskeletal: Denies myalgias - Integumentary Integumentary: Denies pruritus, Denies rash - Neurological Neurological: Denies numbness, Denies weakness - Psychiatric Psychiatric: Denies anxiety, Denies depression - Endocrine Endocrine: Denies fatigue, Denies weight change Past Medical History Past Medical History: GERD/Reflux, Hypertension, Osteoarthritis (OA), Pneumonia Additional Past Medical History / Comment(s): kidney stones, environmental allergies, pneumonia aug 2021 post-op, herniated discs., occasional tachycardia. ileus History of Any Multi-Drug Resistant Organisms: ESBL Date of last positivie culture/infection: 06/2023 MDRO Source:: blood and urine Past Surgical History: Adenoidectomy, Back Surgery, Bariatric Surgery, Section, Cholecystectomy, Hysterectomy, Joint Replacement, Orthopedic Surgery, Tonsillectomy Additional Past Surgical History / Comment(s): Left knee replacement, arthroscopy right knee ., lap band 16 yrs ago- no fluid in band per pt. surgery at [facility].) 03/23/22 trigger finger , KIDNEY STONE SX, COLONOSCOPY backk surgery at age 4 Past Anesthesia/Blood Transfusion Reactions: Postoperative Nausea & Vomiting (PONV) Additional Past Anesthesia/Blood Transfusion Reaction / Comment(s): grandmother- difficulty waking up, slight fever. Smoking Status: Never smoker - Past Family History Mother Family Medical History: Cancer, Hypertension Additional Family Medical History / Comment(s): breast Medications and Allergies Home Medications Medication Instructions Recorded Confirmed Type Metoprolol Succinate (ER) [Toprol 150 mg PO BID 05/07/18 08/04/23 History XL] Pregabalin [Lyrica] 150 mg PO HS 04/21/20 08/04/23 History Vortioxetine Hydrobromide 20 mg PO HS 04/21/20 08/04/23 History [Trintellix] Zolpidem [Ambien] 10 mg PO HS 04/21/20 08/04/23 History ARIPiprazole [Abilify] 2 mg PO HS 03/10/21 08/04/23 History amLODIPine [Norvasc] 5 mg PO HS 03/10/21 08/04/23 History Cyclobenzaprine [Flexeril] 10 mg PO BID PRN 07/09/23 08/04/23 History DULoxetine HCL [Cymbalta] 60 mg PO HS 07/09/23 08/04/23 History cloNIDine HCL [Catapres] 0.1 mg PO HS 07/09/23 08/04/23 History Ketorolac [Toradol] 10 mg PO Q6HR PRN 08/01/23 08/04/23 History Allergies Allergy/AdvReac Type Severity Reaction Status Date / Time ofloxacin [From Floxin] AdvReac Unknown Hallucinati Verified 08/04/23 15:00 ons SAI Inhibitors AdvReac ANGIOEDEMA Verified 08/04/23 15:00 bupropion [From Wellbutrin] AdvReac seizure Verified 08/04/23 15:00 fluoxetine [From Prozac] AdvReac Hallucinati Verified 08/04/23 15:00 ons venlafaxine [From Effexor] AdvReac seizure Verified 08/04/23 15:00 Surgical - Exam - General well developed, well nourished, no distress - Eyes normal ocular movement, no icteric - ENT no hearing loss, no congestion - Neck no masses, trachea midline - Respiratory normal respiratory effort, clear to auscultation - Abdomen Abdomen: soft, non tender, no guarding, no rigid, no rebound - Integumentary no rash, no abnormal pigmentation - Neurologic no disoriented, no combative - Psychiatric oriented to time, oriented to person, oriented to place, speech is normal, memory intact Results - Imaging CT scan - abdomen: report reviewed, image reviewed CT scan - pelvis: report reviewed, image reviewed Assessment and Plan Assessment: Impression: left ureteral stone with stent. Plan: cysto left ureteroscopy with laser lithotripsy, stent removal
[~2023-08-09 09:01] MED LIST changes: +AMPICILLIN 1,000 MG in SODIUM CHLORIDE 0.9% 50 ML IVPB PRN; +DEXAMETHASONE SOD PHOSPHATE 4 MG/ML 1 ML VIAL IV ONE; +GENTAMICIN 120 MG in SODIUM CHLORIDE 0.9% 100 ML IVPB PRN; +HYDROmorphone 0.5 MG/0.5 ML SYRINGE IVP PRN; +LIDOCAINE 1% (10MG/ML) FOR IV START INTRADERMA PRN; +MIDAZOLAM 2 MG/2 ML VIAL IV PRN; +ONDANSETRON 4 MG/2 ML VIAL IVP ONE
--- NOTE | 2023-08-09 09:51 | XR ---
EXAMINATION TYPE: XR KUB DATE OF EXAM: 08/09/2023 9:10 AM CLINICAL INDICATION:Female, 48 years old with history of kidney stones; H COMPARISON: None. TECHNIQUE: One radiographic view of the abdomen was obtained. FINDINGS: Left ureteral stent with inferior and superior pigtail catheters in appropriate position. C alcific densities project over the kidney measuring 13 mm on the right and 5 mm on the left. The tesha l gas pattern is nonspecific without dilated loops of small or large bowel. There is no evidence for organomegaly or pneumoperitoneum. The osseous structures are intact. Fecal material and gas are dem onstrated throughout the colon and rectum. IMPRESSION: 1. Ureteral stent in appropriate position. 2. Bilateral renal calculus. 3. Nonspecific bowel gas pattern without radiographic evidence for acute process.
[2023-08-09] MEDS ORDERED: ONDANSETRON 4 MG/2 ML VIAL IVP ONE ×2 (09:57→13:10)
[2023-08-09] MEDS ORDERED: DEXAMETHASONE SOD PHOSPHATE 4 MG/ML 1 ML VIAL IVP ONE (09:57)
[2023-08-09] MEDS ORDERED: ROCURONIUM 10 MG/ML (5 ML VIAL) IV ONE (11:32)
[2023-08-09] MEDS ORDERED: SUCCINYLCHOLINE CHLORIDE 200 MG/10 ML VIAL IV ONE (11:32)
[2023-08-09] MEDS ORDERED: PROPOFOL 10 MG/ML 20 ML VIAL IV ONE (11:32)
[2023-08-09] MEDS ORDERED: fentaNYL (PF) 50 MCG/ML 2 ML AMP ONE (11:32)
[2023-08-09] MEDS ORDERED: HYDROmorphone (PF) 1 MG/ML ONE (11:32)
[2023-08-09] MEDS ORDERED: GLYCOPYRROLATE 0.2 MG/ML 2 ML VIAL ONE (11:32)
[2023-08-09] MEDS ORDERED: MIDAZOLAM 2 MG/2 ML VIAL ONE (11:32)
[2023-08-09] MEDS ORDERED: LIDOCAINE 1% INJ 10MG/ML (20 ML MDV) ONE (11:32)
[2023-08-09] MEDS ORDERED: NEOSTIGMINE 1 MG/ML 10 ML VIAL ONE (11:32)
[2023-08-09] MEDS ORDERED: LACTATED RINGERS 1,000 ML IV ONE (12:20)
--- NOTE | 2023-08-09 12:42 | P.OP ---
Date of Procedure: 08/09/23 Preoperative Diagnosis: Left ureteral and renal stone status post stent placement Postoperative Diagnosis: Same Procedure(s) Performed: Left ureteroscopy with laser lithotripsy and stone basketing. Removal double-J catheter left Anesthesia: SEAN Surgeon: Fam Berry Estimated Blood Loss (ml): 10 Pathology: other (Stone) Condition: stable Disposition: PACU Indications for Procedure: Patient is 48. She recently was in the hospital with an obstructing ureteral stone on the left requiring a stent. She's been on antibiotics. She now comes for formal left stent and stone removal. She also is a stone in the left kidney that are removed Description of Procedure: Patient brought to the operating suite. She is given a general anesthetic on the operating table. She's placed in lithotomy position with a sterile prep and drape. Cystoscopy Foroblique lens identifies the left double-J catheter. It is grasped and pulled to the urethral meatus. An 035 wires and passed through the double-J cath into left kidney. I then place an 08-32-Eneiao reentry sheath. I removed the inner sheath and the wire. I passed the flexible ureteroscope up into the kidney. I explored the kidney completely and identify 2 stones in the lower pole consistent with the proximal ureter stone floating back into the kidney and the left lower pole stone seen originally. With the 272 probe I break the stones into tiny fragments. The largest fragments are basketed. I looked throughout the collecting system see no remaining stones. I do pullout ureteroscopy on the left side and there is no remaining stones. The bladder is drained the patient is awakened and returned recovery room good condition. Blood loss is 10 mL. She'll be discharged home upon recovery and found the office in one week.
[2023-08-09 12:45] VITALS: TEMP 98.3
[2023-08-09 12:47] LABS: Glucose,Whole Blood 194 mg/dL (70-110)
--- NOTE | 2023-08-09 13:50 | FL ---
Intraoperative/procedural fluoroscopic services were provided. Total fluoroscopy time is 31.2 seconds with a total of 5 submitted images to PACS. Please see the operative/procedural note for further det ails. DAP: [id number] mGym2
[2023-08-09 14:16] VITALS: BP 145/87; PULSE 83; RESP 18
== END 2023-08-09 14:07 | disposition home or self-care (01) ==
LOC: OR 09:01
PROVIDERS: ATTEND Urology
DX: N20.2 Calculus of kidney with calculus of ureter (principal); I10 Essential (primary) hypertension; K21.9 Gastro-esophageal reflux disease without esophagitis; M19.90 Unspecified osteoarthritis, unspecified site; Z87.442 Personal history of urinary calculi; Z90.49 Acquired absence of other specified parts of digestive tract; Z90.710 Acquired absence of both cervix and uterus; Z98.891 History of uterine scar from previous surgery; Z90.89 Acquired absence of other organs; Z82.49 Family history of ischemic heart disease and other diseases of the circulatory system; Z79.899 Other long term (current) drug therapy; Z88.1 Allergy status to other antibiotic agents
CPT/HCPCS: 82365; 74018; 52353; J2250; J0330; J1100; J2710; J2405; J2001; J3010; J1580; J0290; J1170; J2704

== ENCOUNTER → 2023-08-29 | Outpatient (CLI) | payer MEDICAID ==
[2023-08-29 15:39] LABS: Basophils # (A) 0.04 X 10*3/uL (0.00-0.10); Basophils % (A) 0.5 %; Eosinophils # (A) 0.39 X 10*3/uL (0.04-0.35); HCT 39.5 % (37.2-46.3); HGB 12.7 g/dL (12.0-15.0); Lymphocytes % (A) 29.3 %; MCH 28.2 pg (27.0-32.0); MCHC 32.2 g/dL (32.0-37.0); MCV 87.8 FL (80.0-97.0); Mean Platelet Volume 10.9 FL (9.5-12.2); Monocytes % (A) 7.6 %; NRBC Per 100 WBC 0 X 10*3/uL (0.00-0.01); Neutrophils % (A) 57.3 %; Platelet Count 279 X 10*3/uL (140-440); RDW 14.4 % (11.5-14.5); WBC 7.85 X 10*3/uL (4.50-10.00)
[2023-08-29 15:47] LABS: Blood Urea Nitrogen 9.6 mg/dL (9.0-27.0); Calcium 9.6 mg/dL (8.7-10.3); Carbon Dioxide 23.3 mmol/L (21.6-31.8); Chloride 104 mmol/L (96-109); Glucose 114 mg/dL (70-110); Potassium 4.6 mmol/L (3.5-5.5); Sodium 141 mmol/L (135-145)
[2023-08-29 15:54] LABS: Appearance,Urine Clear (Clear); Bilirubin,Urine Negative (Negative); Blood,Urine Negative (Negative); Color,Urine Yellow (Yellow); Ketones,Urine Negative (Negative); Nitrite,Urine Negative (Negative); Specific Gravity,Urine 1.015 (1.001-1.030); Urobilinogen,Urine 0.2 E.U./DL
[2023-08-29 15:59] LABS: Bacteria,Urine None Seen (None Seen)
== END | disposition home or self-care (01) ==
LOC: LABPAT 10:16
PROVIDERS: ATTEND Urology
DX: Z01.812 Encounter for preprocedural laboratory examination (principal); N20.0 Calculus of kidney; R31.29 Other microscopic hematuria
CPT/HCPCS: 36415; 80048; 81001; 85025; 87086

== ENCOUNTER 2023-09-06 09:49 | Day surgery (SDC) | payer MEDICAID ==
--- NOTE | 2023-09-05 15:56 | P.GSHP ---
History of Present Illness H&P Date: 09/05/23 48 yo female with a history of caox and infected stones. She had left sided stones that were removed. She had a 10 mm rlp stone. She was given treatment options and comes for a right ureteroscopy with laser lithotripsy. - Constitutional Constitutional: Denies chills, Denies fever - EENT Eyes: denies blurred vision, denies pain Ears, nose, mouth and throat: Denies headache, Denies sore throat - Cardiovascular Cardiovascular: Denies chest pain, Denies shortness of breath - Respiratory Respiratory: Denies cough, Denies 7 - Gastrointestinal Gastrointestinal: Denies abdominal pain, Denies diarrhea, Denies nausea, Denies vomiting - Genitourinary (Female) Genitourinary: Denies dysuria, Denies hematuria - Genitourinary (Male) Genitourinary: Denies dysuria, Denies hematuria - Musculoskeletal Musculoskeletal: Denies myalgias - Integumentary Integumentary: Denies pruritus, Denies rash - Neurological Neurological: Denies numbness, Denies weakness - Psychiatric Psychiatric: Denies anxiety, Denies depression - Endocrine Endocrine: Denies fatigue, Denies weight change Past Medical History Past Medical History: GERD/Reflux, Hypertension, Osteoarthritis (OA), Pneumonia Additional Past Medical History / Comment(s): kidney stones/septic stone, environmental allergies, pneumonia aug 2021 post-op, herniated discs., occasional tachycardia. ileus History of Any Multi-Drug Resistant Organisms: ESBL Date of last positivie culture/infection: 07/14/23 MDRO Source:: urine Past Surgical History: Adenoidectomy, Bariatric Surgery, Section, Cholecystectomy, Hysterectomy, Joint Replacement, Orthopedic Surgery, Tonsillectomy Additional Past Surgical History / Comment(s): 08/09/23 cystoscopy with L lithotripsy/L stent removed, left knee replacement, arthroscopy right knee ., lap band 16 yrs ago- no fluid in band per pt. surgery at [facility].) 03/23/22 trigger finger , KIDNEY STONE SX, COLONOSCOPY Past Anesthesia/Blood Transfusion Reactions: Postoperative Nausea & Vomiting (PONV) Additional Past Anesthesia/Blood Transfusion Reaction / Comment(s): grandmother- difficulty waking up, slight fever. Smoking Status: Never smoker - Past Family History Mother Family Medical History: Cancer, Hypertension Medications and Allergies Home Medications Medication Instructions Recorded Confirmed Type Metoprolol Succinate (ER) [Toprol 150 mg PO BID 05/07/18 09/04/23 History XL] Pregabalin [Lyrica] 150 mg PO HS 04/21/20 09/04/23 History Vortioxetine Hydrobromide 20 mg PO HS 04/21/20 09/04/23 History [Trintellix] Zolpidem [Ambien] 10 mg PO HS 04/21/20 09/04/23 History ARIPiprazole [Abilify] 2 mg PO HS 03/10/21 09/04/23 History amLODIPine [Norvasc] 5 mg PO HS 03/10/21 09/04/23 History Cyclobenzaprine [Flexeril] 10 mg PO BID PRN 07/09/23 09/04/23 History DULoxetine HCL [Cymbalta] 60 mg PO HS 07/09/23 09/04/23 History cloNIDine HCL [Catapres] 0.1 mg PO HS 07/09/23 09/04/23 History Allergies Allergy/AdvReac Type Severity Reaction Status Date / Time ofloxacin [From Floxin] AdvReac Unknown Hallucinati Verified 09/04/23 11:06 ons SAI Inhibitors AdvReac ANGIOEDEMA Verified 09/04/23 11:06 bupropion [From Wellbutrin] AdvReac seizure Verified 09/04/23 11:06 fluoxetine [From Prozac] AdvReac Hallucinati Verified 09/04/23 11:06 ons venlafaxine [From Effexor] AdvReac seizure Verified 09/04/23 11:06 Surgical - Exam - General well developed, well nourished, no distress, obese - Eyes normal ocular movement, no icteric - ENT no hearing loss, no congestion - Neck no masses, trachea midline - Respiratory normal respiratory effort, clear to auscultation - Abdomen Abdomen: soft, non tender, no guarding, no rigid, no rebound - Integumentary no rash, no abnormal pigmentation - Neurologic no disoriented, no combative - Psychiatric oriented to time, oriented to person, oriented to place, speech is normal, memory intact Results - Imaging Abdominal x-ray: report reviewed, image reviewed CT scan - abdomen: report reviewed, image reviewed CT scan - pelvis: report reviewed, image reviewed Assessment and Plan Assessment: Impression: rlp calyceal stone. Plan: right ureteroscopy with laser lithotripsy
[~2023-09-06 09:49] MED LIST changes: -DEXAMETHASONE SOD PHOSPHATE 4 MG/ML 1 ML VIAL IV ONE; -LIDOCAINE 1% (10MG/ML) FOR IV START INTRADERMA PRN; -MIDAZOLAM 2 MG/2 ML VIAL IV PRN
--- NOTE | 2023-09-06 10:29 | XR ---
EXAMINATION TYPE: XR KUB DATE OF EXAM: 09/06/2023 Comparison: 08/09/2023 Clinical History: 48-year-old female N20.0 right renal stone Findings: Cholecystectomy clips. Bilateral renal calculi measuring 1.0 cm on the right and 5 mm on the left are similar. Injection port for lap band device noted. Moderate stool burden. Nonobstructive bowel gas p attern. Retained clip or skin staple right paramedian pelvis. Impression: 1.0 cm right and 5 mm left renal calculi. Removal of the previous left ureteral stent.
[2023-09-06 10:46] VITALS: TEMP 97.8
[2023-09-06] MEDS ORDERED: SUCCINYLCHOLINE CHLORIDE 200 MG/10 ML VIAL IV ONE (11:50)
[2023-09-06] MEDS ORDERED: PHENYLEPHRINE 10 MG/ML VIAL ONE (11:50)
[2023-09-06] MEDS ORDERED: LIDOCAINE 1% INJ 10MG/ML (20 ML MDV) ONE (11:50)
[2023-09-06] MEDS ORDERED: fentaNYL (PF) 50 MCG/ML 2 ML AMP ONE (11:50)
[2023-09-06] MEDS ORDERED: MIDAZOLAM 2 MG/2 ML VIAL ONE (11:50)
[2023-09-06] MEDS ORDERED: PROPOFOL 10 MG/ML 20 ML VIAL IV ONE (11:50)
[2023-09-06] MEDS ORDERED: KETAMINE HCL IN 0.9 % NACL 50 MG/5 ML SYRINGE ONE (11:50)
--- NOTE | 2023-09-06 13:29 | P.OP ---
Date of Procedure: 09/06/23 Preoperative Diagnosis: Right renal stone Postoperative Diagnosis: Same Procedure(s) Performed: Cystoscopy, right ureteroscopy with laser lithotripsy stone basketing and placement of 624 stent Anesthesia: SEAN Surgeon: Fam Berry Estimated Blood Loss (ml): 0 Pathology: other Condition: stable Disposition: PACU Indications for Procedure: Patient is 48. She has active kidney stone disease. She had a percutaneous nephrostolithotomy recently. She now comes for ureteroscopy and laser lithotripsy Description of Procedure: Patient brought to the operating suite. Given general anesthesia. Placed lithotomy position with a sterile prep and drape. Cystoscopy Foroblique lens and 21-[place] sheath identifies a normal bladder. The right ureteral orifice is identified and 035 wires passed up into the kidney. Over the wires passed a 12-24-Jgdzyl reentry sheath. The inner sheath is removed. I passed the flexible ureteroscope up into the right kidney. There is a 10 mm stone on the right lower pole anteriorly. It is difficult access but I eventually access it. With the 272 laser probe the stone was broken into tiny fragments the largest of which are stone basketed. There is only dust remaining. Due to the tightness of the ureter a stent will be placed. An 035 wires and passed the ureteroscope back up into the kidney. I removed the ureteroscope and over the wires passed a 6 x 24 double-J catheter that coils in the right renal pelvis and the bladder the bladder strain the patient is awakened and returned recovery in good condition. She'll be discharged home upon recovery and found the office in one week for stent removal.
[2023-09-06] MEDS ORDERED: LACTATED RINGERS 1,000 ML IV ONE ×2 (13:39)
[2023-09-06] MEDS ORDERED: ONDANSETRON 4 MG/2 ML VIAL ONE (14:39)
[2023-09-06] MEDS ORDERED: ONDANSETRON 4 MG/2 ML VIAL IVP ONE (14:42)
[2023-09-06 15:22] VITALS: RESP 16
[2023-09-06] MEDS ORDERED: HYDROcodone/APAP 5-325MG 1 EACH TAB ONE (15:43)
[2023-09-06] MEDS ORDERED: HYDROcodone/APAP 5-325MG 1 EACH TAB PO ONE (15:45)
[2023-09-06 16:10] VITALS: BP 116/69; PULSE 74
--- NOTE | 2023-09-06 19:26 | FL ---
EXAMINATION TYPE: FL guidance operating room DATE OF EXAM: 09/06/2023 Comparison: None Clinical History: 48-year-old female Cysto for rt kidney stone Findings: Cysto for rt kidney stone 2.25min fluoro time 59.937 mGycm2 DAP 5 images provided Impression: Urology procedure fluoroscopy as above.
== END 2023-09-06 16:22 | disposition home or self-care (01) ==
LOC: OR 09:49
PROVIDERS: ATTEND Urology
DX: N20.0 Calculus of kidney (principal); I10 Essential (primary) hypertension; K21.9 Gastro-esophageal reflux disease without esophagitis; M19.90 Unspecified osteoarthritis, unspecified site; Z87.442 Personal history of urinary calculi; Z88.1 Allergy status to other antibiotic agents; Z88.8 Allergy status to other drugs, medicaments and biological substances; Z90.49 Acquired absence of other specified parts of digestive tract
CPT/HCPCS: 52356; 82365; 74018; C2625; C1769; J2250; J0330; J2405; J2001; J3010; J1580; J0290; J2704; J2371

== ENCOUNTER 2023-09-10 08:38 | Emergency (ER) | payer MEDICAID ==
[2023-09-10 08:44] VITALS: RESP 18
[2023-09-10] MEDS ORDERED: KETOROLAC 15 MG/ML 1 ML VIAL IVP STA (08:58)
[2023-09-10] MEDS ORDERED: SODIUM CHLORIDE 0.9% 1,000 ML IV ONE (08:59)
--- NOTE | 2023-09-10 09:03 | ED ---
General Adult HPI - General Chief complaint: Recheck/Abnormal Lab/Rx Stated complaint: kidney stone Time Seen by Provider: 09/10/23 08:40 Source: patient, RN notes reviewed, old records reviewed Mode of arrival: ambulatory Limitations: no limitations - History of Present Illness Initial comments: This a 48-year-old female presents emergency department stating that she had a stent placed for kidney stone on Monday and now she's having more pain. Hemant cerrato states this is typical of her stents usually cause her as much pain as a stones. Patient states normally Toradol works but she wasn't sent home with any Toradol. Patient states she does have [place] but it's not working at all. Patient states she also some blood in urine which is typical of her getting a stent. Patient states that only been one week and then they will remove it. Patient denies any fever chills. Patient states she has a little bit of back pain. Patient denies any vomiting. Patient denies any other symptoms at this time - Related Data Home Medications Medication Instructions Recorded Confirmed Metoprolol Succinate (ER) [Toprol 150 mg PO BID 05/07/18 09/06/23 XL] Pregabalin [Lyrica] 150 mg PO HS 04/21/20 09/06/23 Vortioxetine Hydrobromide 20 mg PO HS 04/21/20 09/06/23 [Trintellix] Zolpidem [Ambien] 10 mg PO HS 04/21/20 09/06/23 ARIPiprazole [Abilify] 2 mg PO HS 03/10/21 09/06/23 amLODIPine [Norvasc] 5 mg PO HS 03/10/21 09/06/23 Cyclobenzaprine [Flexeril] 10 mg PO BID PRN 07/09/23 09/06/23 DULoxetine HCL [Cymbalta] 60 mg PO HS 07/09/23 09/06/23 cloNIDine HCL [Catapres] 0.1 mg PO HS 07/09/23 09/06/23 Previous Rx's Medication Instructions Recorded HYDROcodone/APAP 5-325MG [[place] 1 tab PO Q4HR PRN #14 tab 09/06/23 5-325] Ketorolac [Toradol] 10 mg PO Q6HR #15 tab 09/10/23 Allergies Allergy/AdvReac Type Severity Reaction Status Date / Time ofloxacin [From Floxin] AdvReac Unknown Hallucinati Verified 09/10/23 08:41 ons SAI Inhibitors AdvReac ANGIOEDEMA Verified 09/10/23 08:41 bupropion [From Wellbutrin] AdvReac seizure Verified 09/10/23 08:41 fluoxetine [From Prozac] AdvReac Hallucinati Verified 09/10/23 08:41 ons venlafaxine [From Effexor] AdvReac seizure Verified 09/10/23 08:41 Review of Systems ROS Statement: Those systems with pertinent positive or pertinent negative responses have been documented in the HPI. ROS Other: All systems not noted in ROS Statement are negative. Past Medical History Past Medical History: GERD/Reflux, Hypertension, Osteoarthritis (OA), Pneumonia Additional Past Medical History / Comment(s): kidney stones/septic stone, env ironmental allergies, pneumonia aug 2021 post-op, herniated discs., occasional tachycardia. ileus History of Any Multi-Drug Resistant Organisms: ESBL Date of last positivie culture/infection: 07/14/23 MDRO Source:: urine Past Surgical History: Adenoidectomy, Bariatric Surgery, Section, Chol ecystectomy, Hysterectomy, Joint Replacement, Orthopedic Surgery, Tonsillectomy Additional Past Surgical History / Comment(s): 08/09/23 cystoscopy with L lithotripsy/L stent removed, left knee replacement, arthroscopy right knee ., lap band 16 yrs ago- no fluid in band per pt. surgery at [facility].) 03/23/22 trigger finger , KIDNEY STONE SX, COLONOSCOPY Past Anesthesia/Blood Transfusion Reactions: Postoperative Nausea & Vomiting (PONV) Additional Past Anesthesia/Blood Transfusion Reaction / Comment(s): grandmother-difficulty waking up, slight fever. Past Psychological History: Depression Smoking Status: Never smoker Past Alcohol Use History: None Reported Past Drug Use History: None Reported - Past Family History Mother Family Medical History: Cancer, Hypertension General Exam - General Exam Comments Initial Comments: GENERAL: Patient is well-developed and well-nourished. Patient is nontoxic and well- hydrated and is in moderate distress. ENT: Neck is soft and supple. No significant lymphadenopathy is noted. Oropharynx is clear. Moist mucous membranes. Neck has full range of motion without eliciting any pain. EYES: The sclera were anicteric and conjunctiva were pink and moist. Extraocular movements were intact and pupils were equal round and reactive to light. Eyelids were unremarkable. PULMONARY: Unlabored respirations. Good breath sounds bilaterally. No audible rales rhonchi or wheezing was noted. CARDIOVASCULAR: There is a regular rate and rhythm without any murmurs gallops or rubs. ABDOMEN: Soft and nontender with normal bowel sounds. SKIN: Skin is clear with no lesions or rashes and otherwise unremarkable. NEUROLOGIC: Patient is alert and oriented x3. Cranial nerves II through XII are grossly intact. Motor and sensory are also intact. Normal speech, volume and content. Symmetrical smile. MUSCULOSKELETAL: Normal extremities with adequate strength and full range of motion. Patient is very mild right CVA tenderness LYMPHATICS: No significant lymphadenopathy is noted PSYCHIATRIC: Normal psychiatric evaluation. Limitations: no limitations Course Vital Signs 09/10/23 09/10/23 08:39 10:19 Temperature 98.7 F Pulse Rate 99 86 Respiratory 18 18 Rate Blood Pressure 162/90 119/86 O2 Sat by Pulse 97 96 Oximetry Medical Decision Making - Medical Decision Making Was pt. sent in by a medical professional or institution (, PA, STOCK CHASER, urgent care, hospital, or detention...) When possible be specific @ -No Did you speak to anyone other than the patient for history (EMS, parent, family, police, friend...)? What history was obtained from this source @ -No Did you review nursing and triage notes (agree or disagree)? Why? @ -I reviewed and agree with nursing and triage notes Were old charts reviewed (outside hosp., previous admission, EMS record, old EK G, old radiological studies, urgent care reports/EKG's, detention records)? Report findings @ -I reviewed the prior chart from prior lab work on this patient Differential Diagnosis (chest pain, altered mental status, abdominal pain women, abdominal pain men, vaginal bleeding, weakness, fever, dyspnea, syncope, headache, dizziness, GI bleed, back pain, seizure, CVA, palpatations, mental health, musculoskeletal)? @ -Differential Abdominal Pain Women: Appendicitis, Cholecystitis, diverticulosis, ischemic bowel, pancreatitis, hepatitis, UTI, gastroenteritis, AAA, incarcerated hernia, bowel obstruction, constipation, inflammatory bowel, hepatitis, peptic ulcer disease, splenic infarction, perforated viscus, vulvitis, ovarian torsion, PID, kidney stone, placenta abruption, this is not meant to be an all-inclusive list EKG interpreted by me (3pts min.). @ -As above X-rays interpreted by me (1pt min.). @ -None done CT interpreted by me (1pt min.). @ -None done U/S interpreted by me (1pt. min.). @ -None done What testing was considered but not performed or refused? (CT, X-rays, U/S, labs)? Why? @ -None What meds were considered but not given or refused? Why? @ -None Did you discuss the management of the patient with other professionals (professionals i.e. , PA, STOCK CHASER, lab, RT, psych nurse, social media marketing specialist, seismic survey assistant, teacher, flight deck officer, wrapper caser)? Give summary @ -No Was smoking cessation discussed for >3mins.? @ -No Was critical care preformed (if so, how long)? @ -No Were there social determinants of health that impacted care today? How? (Homelessness, low income, unemployed, alcoholism, drug addiction, transportation, low edu. Level, literacy, decrease access to med. care, care home, rehab)? @ -No Was there de-escalation of care discussed even if they declined (Discuss DNR or withdrawal of care, Hospice)? DNR status @ -No What co-morbidities impacted this encounter? (DM, HTN, Smoking, COPD, CAD, Cancer, CVA, ARF, Chemo, Hep., AIDS, mental health diagnosis, sleep apnea, morbi d obesity)? @ -None Was patient admitted / discharged? Hospital course, mention meds given and route, prescriptions, significant lab abnormalities, going to OR and other pertinent info. @ -She was given Toradol was feeling considerably better she asked for some Toradol to go home with. Patient will receive some Toradol to go home with. Hemant cerrato's lab work showed no kidney dysfunction. Undiagnosed new problem with uncertain prognosis? @ -No Drug Therapy requiring intensive monitoring for toxicity (Heparin, Nitro, Insulin, Cardizem)? @ -No Were any procedures done? @ -No Diagnosis/symptom? @ -Flank pain Acute, or Chronic, or Acute on Chronic? @ -Acute Uncomplicated (without systemic symptoms) or Complicated (systemic symptoms)? @ -Complicated Side effects of treatment? @ -No Exacerbation, Progression, or Severe Exacerbation? @ -No Poses a threat to life or bodily function? How? (Chest pain, [place], [place], pneumonia, PE, COPD, DKA, ARF, appy, cholecystitis, CVA, Diverticulitis, Homicidal, Suicidal, threat to staff... and all critical care pts) @ -No - Lab Data Result diagrams: 09/10/23 09:10 09/10/23 09:10 Lab Results 09/10/23 09/10/23 Range/Units 09:10 09:10 WBC 9.5 (3.8-10.6) k/uL RBC 4.20 (3.80-5.40) m/uL Hgb 12.2 (11.4-16.0) gm/dL Hct 36.0 (34.0-46.0) % MCV 85.7 (80.0-100.0) fL MCH 29.2 (25.0-35.0) pg MCHC 34.1 (31.0-37.0) g/dL RDW 14.6 (11.5-15.5) % Plt Count 262 (150-450) k/uL MPV 7.6 Neutrophils % 66 % Lymphocytes % 21 % Monocytes % 5 % Eosinophils % 5 % Basophils % 1 % Neutrophils # 6.2 (1.3-7.7) k/uL Lymphocytes # 2.0 (1.0-4.8) k/uL Monocytes # 0.5 (0-1.0) k/uL Eosinophils # 0.4 (0-0.7) k/uL Basophils # 0.1 (0-0.2) k/uL Sodium 137 (137-145) mmol/L Potassium 4.4 (3.5-5.1) mmol/L Chloride 101 (98-107) mmol/L Carbon Dioxide 24 (22-30) mmol/L Anion Gap 12 mmol/L BUN 18 H (7-17) mg/dL Creatinine 0.91 (0.52-1.04) mg/dL Est GFR (CKD-EPI)AfAm 85 (>60 ml/min/1.73 sqM) Est GFR (CKD-EPI)NonAf 74 (>60 ml/min/1.73 sqM) Glucose 181 H (74-99) mg/dL Calcium 9.4 (8.4-10.2) mg/dL Total Bilirubin 0.2 (0.2-1.3) mg/dL AST 25 (14-36) U/L ALT 36 H (4-34) U/L Alkaline Phosphatase 157 H (38-126) U/L Total Protein 6.8 (6.3-8.2) g/dL Albumin 4.0 (3.5-5.0) g/dL Disposition Clinical Impression: Flank pain Disposition: HOME SELF-CARE Condition: Good Instructions (If sedation given, give patient instructions): Kidney Stones (ED) Prescriptions: Ketorolac [Toradol] 10 mg PO Q6HR #15 tab Is patient prescribed a controlled substance at d/c from ED?: No Referrals: Rosa Stewart MD [Primary Care Provider] - 1-2 days Time of Disposition: 10:34
[2023-09-10 09:34] LABS: Basophils # (A) 0.1 k/uL (0-0.2); Basophils % (A) 1 %; Eosinophils # (A) 0.4 k/uL (0-0.7); Eosinophils % (A) 5 %; HGB 12.2 gm/dL (11.4-16.0); Lymphocytes % (A) 21 %; MCH 29.2 pg (25.0-35.0); MCHC 34.1 g/dL (31.0-37.0); MCV 85.7 fL (80.0-100.0); Mean Platelet Volume 7.6; Monocytes # (A) 0.5 k/uL (0-1.0); Monocytes % (A) 5 %; Neutrophils # (A) 6.2 k/uL (1.3-7.7); Neutrophils % (A) 66 %; Platelet Count 262 k/uL (150-450); RDW 14.6 % (11.5-15.5); WBC 9.5 k/uL (3.8-10.6)
[2023-09-10 10:22] LABS: ALT 36 U/L (4-34); AST 25 U/L (14-36); African American GFR (CKD) 85 (>60 ml/min/1.73 sqM); Alkaline Phosphatase 157 U/L (38-126); Anion Gap 12 mmol/L; Blood Urea Nitrogen 18 mg/dL (7-17); Calcium 9.4 mg/dL (8.4-10.2); Carbon Dioxide 24 mmol/L (22-30); Chloride 101 mmol/L (98-107); Glucose 181 mg/dL (74-99); Non-African American GFR(CKD) 74 (>60 ml/min/1.73 sqM); Potassium 4.4 mmol/L (3.5-5.1); Sodium 137 mmol/L (137-145); Total Bilirubin 0.2 mg/dL (0.2-1.3); Total Protein 6.8 g/dL (6.3-8.2)
[2023-09-10 10:38] VITALS: BP 119/86; PULSE 86
[2023-09-10 11:00] VITALS: TEMP 97.8
== END 2023-09-10 10:44 | disposition home or self-care (01) ==
LOC: EC 08:38
DX: R10.9 Unspecified abdominal pain (principal); K21.9 Gastro-esophageal reflux disease without esophagitis; I10 Essential (primary) hypertension; F32.A Depression, unspecified; Z88.6 Allergy status to analgesic agent; Z88.8 Allergy status to other drugs, medicaments and biological substances; Z88.1 Allergy status to other antibiotic agents
CPT/HCPCS: 36415; 80053; 85025; 99283; 96374; 96361 ×2; J1885

== ENCOUNTER 2023-09-12 23:18 | Inpatient (IN) | payer MEDICAID ==
--- NOTE | 2023-09-12 23:22 | ED ---
General Adult HPI - General Source: patient, RN notes reviewed, old records reviewed Mode of arrival: ambulatory Limitations: no limitations <Fortunato Hernandez - Last Filed: 09/12/23 23:21> <Jennifer Medeiros - Last Filed: 09/13/23 05:22> - General Stated complaint: kidney stones Time Seen by Provider: 09/12/23 23:21 - History of Present Illness Initial comments: 48-year-old female presents emergency Department chief complaint of fever, flank pain. Patient states that he's had a history kidney stones with infections states that she was septic the past. She has a current stent placed by Dr. Berry. Patient reports that she's had 102 fever. Patient recent ER visit for flank pain. (Fortunato Hernandez) Patient with history of bacterial sepsis secondary to UTI with kidney stone/stent in Jul. Recent stenting of RIGHT side, into the emergency department today with concerns of fever nausea, vomiting and flank pain. Patient also notes she's had significant hematuria since having the stent placed last week. (Jennifer Medeiros) - Related Data Home Medications Medication Instructions Recorded Confirmed Metoprolol Succinate (ER) [Toprol 150 mg PO BID 05/07/18 09/06/23 XL] Pregabalin [Lyrica] 150 mg PO HS 04/21/20 09/06/23 Vortioxetine Hydrobromide 20 mg PO HS 04/21/20 09/06/23 [Trintellix] Zolpidem [Ambien] 10 mg PO HS 04/21/20 09/06/23 ARIPiprazole [Abilify] 2 mg PO HS 03/10/21 09/06/23 amLODIPine [Norvasc] 5 mg PO HS 03/10/21 09/06/23 Cyclobenzaprine [Flexeril] 10 mg PO BID PRN 07/09/23 09/06/23 DULoxetine HCL [Cymbalta] 60 mg PO HS 07/09/23 09/06/23 cloNIDine HCL [Catapres] 0.1 mg PO HS 07/09/23 09/06/23 Previous Rx's Medication Instructions Recorded HYDROcodone/APAP 5-325MG [[place] 1 tab PO Q4HR PRN #14 tab 09/06/23 5-325] Ketorolac [Toradol] 10 mg PO Q6HR #15 tab 09/10/23 Allergies Allergy/AdvReac Type Severity Reaction Status Date / Time ofloxacin [From Floxin] AdvReac Unknown Hallucinati Verified 09/12/23 23:32 ons SAI Inhibitors AdvReac ANGIOEDEMA Verified 09/12/23 23:32 bupropion [From Wellbutrin] AdvReac seizure Verified 09/12/23 23:32 fluoxetine [From Prozac] AdvReac Hallucinati Verified 09/12/23 23:32 ons venlafaxine [From Effexor] AdvReac seizure Verified 09/12/23 23:32 Review of Systems ROS Other: All systems not noted in ROS Statement are negative. <Fortunato Hernandez - Last Filed: 09/12/23 23:21> ROS Other: All systems not noted in ROS Statement are negative. <Jennifer Medeiros - Last Filed: 09/13/23 05:22> ROS Statement: Those systems with pertinent positive or pertinent negative responses have been documented in the HPI. Past Medical History Past Medical History: GERD/Reflux, Hypertension, Osteoarthritis (OA), Pneumonia Additional Past Medical History / Comment(s): kidney stones/septic stone, environmental allergies, pneumonia aug 2021 post-op, herniated discs., occasional tachycardia. ileus History of Any Multi-Drug Resistant Organisms: ESBL Date of last positivie culture/infection: 07/14/23 MDRO Source:: urine Past Surgical History: Adenoidectomy, Bariatric Surgery, Section, Cholecystectomy, Hysterectomy, Joint Replacement, Orthopedic Surgery, Tonsillectomy Additional Past Surgical History / Comment(s): 08/09/23 cystoscopy with L lithotripsy/L stent removed, left knee replacement, arthroscopy right knee ., lap band 16 yrs ago- no fluid in band per pt. surgery at [facility].) 03/23/22 trigger finger , KIDNEY STONE SX, COLONOSCOPY Past Anesthesia/Blood Transfusion Reactions: Postoperative Nausea & Vomiting (PONV) Additional Past Anesthesia/Blood Transfusion Reaction / Comment(s): grandmother- difficulty waking up, slight fever. Past Psychological History: Depression Smoking Status: Never smoker Past Alcohol Use History: None Reported Past Drug Use History: None Reported - Past Family History Mother Family Medical History: Cancer, Hypertension <Fortunato Hernandez - Last Filed: 09/12/23 23:21> General Exam General appearance: alert, other Head exam: Present: atraumatic, normocephalic (Ill appearing) Respiratory exam: Present: other (Tachypnea). Absent: respiratory distress Cardiovascular Exam: Present: tachycardia GI/Abdominal exam: Present: soft, other (Right-sided flank pain) Extremities exam: Present: normal inspection Back exam: Present: CVA tenderness (R) Neurological exam: Present: alert, oriented X3 Psychiatric exam: Present: normal affect, normal mood Skin exam: Present: warm, other (Last) <Jennifer Medeirso P - Last Filed: 09/13/23 05:22> Course Vital Signs 09/12/23 23:30 Temperature 100.5 F H Pulse Rate 118 H Respiratory 20 Rate Blood Pressure 137/61 O2 Sat by Pulse 94 L Oximetry Procedures - Sepsis Sepsis Focused Exam #1 Sepsis Focused Exam Date: 09/13/23 Sepsis Focused Exam Time: 05:17 Sepsis Focused Exam #2 Time Sepsis Criteria Met: 00:50 Sepsis Focused Exam Date: 09/13/23 Sepsis Focused Exam Time: 05:22 Sepsis Focused Exam Complete: Yes Vital Signs & RN Notes Reviewed: Yes Capillary Refill: < 2 Seconds: Fingers Peripheral Pulses: Strong: Radial (L) Skin Color: Normal for Patient Cardiovascular Exam: tachycardia (HR improved 103) <Jennifer Medeiros P - Last Filed: 09/13/23 05:22> Medical Decision Making - Lab Data Result diagrams: 09/13/23 00:25 09/13/23 00:25 <Jennifer Medeiros P - Last Filed: 09/13/23 05:22> - Medical Decision Making Was pt. sent in by a medical professional or institution (, PA, PYTHON WEB DEVELOPER, urgent care, hospital, or [facility]...) When possible be specific @ -No Did you speak to anyone other than the patient for history (EMS, parent, family, police, friend...)? What history was obtained from this source @ -No Did you review nursing and triage notes (agree or disagree)? Why? @ -I reviewed and agree with nursing and triage notes Were old charts reviewed (outside hosp., previous admission, EMS record, old EKG, old radiological studies, urgent care reports/EKG's, [facility] records)? Report findings @ -Asthma herbology reports were reviewed Differential Diagnosis (chest pain, altered mental status, abdominal pain women, abdominal pain men, vaginal bleeding, weakness, fever, dyspnea, syncope, headache, dizziness, GI bleed, back pain, seizure, CVA, palpatations, mental health)? @ Sepsis EKG interpreted by me (3pts min.). @ -As above X-rays interpreted by me (1pt min.). @ -None done CT interpreted by me (1pt min.). @ -None done U/S interpreted by me (1pt. min.). @ -None done What testing was considered but not performed or refused? (CT, X-rays, U/S, labs)? Why? @ -None What meds were considered but not given or refused? Why? @ -None Did you discuss the management of the patient with other professionals (professionals i.e. , PA, PYTHON WEB DEVELOPER, lab, RT, psych nurse, social service assistant, microbiology coordinator, teacher, ship officer, case assembler)? Give summary @ -Admitting physician Dr. Chahal Was smoking cessation discussed for >3mins.? @ -No Was critical care preformed (if so, how long)? @ -No Were there social determinants of health that impacted care today? How? (Homelessness, low income, unemployed, alcoholism, drug addiction, transportation, low edu. Level, literacy, decrease access to med. care, long-term, rehab)? @ -No Was there de-escalation of care discussed even if they declined (Discuss DNR or withdrawal of care, Hospice)? DNR status @ -No What co-morbidities impacted this encounter? (DM, HTN, Smoking, COPD, CAD, Cancer, CVA, ARF, Chemo, Hep., AIDS, mental health diagnosis, sleep apnea, morbid obesity)? @ -None Was patient admitted / discharged? Hospital course, mention meds given and route, prescriptions, significant lab abnormalities, going to OR and other pertinent info. @ -Admitted Labs obtained when patient in Waiting room - bam ordered, most recent urine culture with E faecalis susceptible to PCN PAtient to be admitted for sepsis secondary to UTI with stent in place Undiagnosed new problem with uncertain prognosis? @ -No Drug Therapy requiring intensive monitoring for toxicity (Heparin, Nitro, Insulin, Cardizem)? @ -No Were any procedures done? @ -No Diagnosis/symptom? @ -Sepsis Acute, or Chronic, or Acute on Chronic? @ Acute Uncomplicated (without systemic symptoms) or Complicated (systemic symptoms)? @ Complicated Side effects of treatment? @ Yes due to stenting Exacerbation, Progression, or Severe Exacerbation? @ -No Poses a threat to life or bodily function? How? (Chest pain, [place], [place], pneumonia, PE, COPD, DKA, ARF, appy, cholecystitis, CVA, Diverticulitis, Homicidal, Suicidal, threat to staff... and all critical care pts) @ Yes can progress to shock Diagnosis/symptom? @ Acute blood loss anemia Acute, or Chronic, or Acute on Chronic? @ Acute Uncomplicated (without systemic symptoms) or Complicated (systemic symptoms)? @ Complicated Side effects of treatment? @ Yes due to ureteral stenting Exacerbation, Progression, or Severe Exacerbation] @ -no Poses a threat to life or bodily function? @ Yes (Jennifer Medeiros) - Lab Data Lab Results 09/13/23 09/13/23 09/13/23 Range/Units 00:25 00:25 00:25 WBC 7.1 (3.8-10.6) k/uL RBC 2.78 L (3.80-5.40) m/uL Hgb 8.0 L D (11.4-16.0) gm/dL Hct 23.6 L (34.0-46.0) % MCV 84.7 (80.0-100.0) fL MCH 28.9 (25.0-35.0) pg MCHC 34.1 (31.0-37.0) g/dL RDW 14.9 (11.5-15.5) % Plt Count 276 (150-450) k/uL MPV 7.7 Neutrophils % 68 % Lymphocytes % 20 % Monocytes % 4 % Eosinophils % 5 % Basophils % 0 % Neutrophils # 4.9 (1.3-7.7) k/uL Lymphocytes # 1.4 (1.0-4.8) k/uL Monocytes # 0.3 (0-1.0) k/uL Eosinophils # 0.3 (0-0.7) k/uL Basophils # 0.0 (0-0.2) k/uL Sodium 133 L (137-145) mmol/L Potassium 4.3 (3.5-5.1) mmol/L Chloride 100 (98-107) mmol/L Carbon Dioxide 18 L (22-30) mmol/L Anion Gap 15 mmol/L BUN 27 H (7-17) mg/dL Creatinine 1.45 H (0.52-1.04) mg/dL Est GFR (CKD-EPI)AfAm 48 (>60 ml/min/1.73 sqM) Est GFR (CKD-EPI)NonAf 42 (>60 ml/min/1.73 sqM) Glucose 141 H (74-99) mg/dL Plasma Lactic Acid Piet[place] 1.7 (0.7-2.0) mmol/L Calcium 8.5 (8.4-10.2) mg/dL Total Bilirubin 0.6 (0.2-1.3) mg/dL AST 64 H (14-36) U/L ALT 51 H (4-34) U/L Alkaline Phosphatase 122 (38-126) U/L Total Protein 6.7 (6.3-8.2) g/dL Albumin 3.9 (3.5-5.0) g/dL Amylase 44 (30-110) U/L Lipase 33 (23-300) U/L Urine Color Urine Appearance (Clear) Urine pH (5.0-8.0) Ur Specific [place] (1.001-1.035) Urine Protein (Negative) Urine Glucose (UA) (Negative) Urine Ketones (Negative) Urine Blood (Negative) Urine Nitrite (Negative) Urine Bilirubin (Negative) Urine Urobilinogen (<2.0) mg/dL Ur Leukocyte Esterase (Negative) Urine RBC (0-5) /hpf Urine WBC (0-5) /hpf Ur Squamous Epith Cells (0-4) /hpf Amorphous Sediment (None) /hpf Urine Bacteria (None) /hpf Hyaline Casts (0-2) /lpf Granular Casts (0) /lpf 09/13/23 Range/Units 02:08 WBC (3.8-10.6) k/uL RBC (3.80-5.40) m/uL Hgb (11.4-16.0) gm/dL Hct (34.0-46.0) % MCV (80.0-100.0) fL MCH (25.0-35.0) pg MCHC (31.0-37.0) g/dL RDW (11.5-15.5) % Plt Count (150-450) k/uL MPV Neutrophils % % Lymphocytes % % Monocytes % % Eosinophils % % Basophils % % Neutrophils # (1.3-7.7) k/uL Lymphocytes # (1.0-4.8) k/uL Monocytes # (0-1.0) k/uL Eosinophils # (0-0.7) k/uL Basophils # (0-0.2) k/uL Sodium (137-145) mmol/L Potassium (3.5-5.1) mmol/L Chloride (98-107) mmol/L Carbon Dioxide (22-30) mmol/L Anion Gap mmol/L BUN (7-17) mg/dL Creatinine (0.52-1.04) mg/dL Est GFR (CKD-EPI)AfAm (>60 ml/min/1.73 sqM) Est GFR (CKD-EPI)NonAf (>60 ml/min/1.73 sqM) Glucose (74-99) mg/dL Plasma Lactic Acid Pietro (0.7-2.0) mmol/L Calcium (8.4-10.2) mg/dL Total Bilirubin (0.2-1.3) mg/dL AST (14-36) U/L ALT (4-34) U/L Alkaline Phosphatase (38-126) U/L Total Protein (6.3-8.2) g/dL Albumin (3.5-5.0) g/dL Amylase (30-110) U/L Lipase (23-300) U/L Urine Color Light Red Urine Appearance Cloudy H (Clear) Urine pH 5.5 (5.0-8.0) Ur Specific [place] 1.012 (1.001-1.035) Urine Protein 1+ H (Negative) Urine Glucose (UA) Negative (Negative) Urine Ketones Negative (Negative) Urine Blood Large H (Negative) Urine Nitrite Negative (Negative) Urine Bilirubin Negative (Negative) Urine Urobilinogen <2.0 (<2.0) mg/dL Ur Leukocyte Esterase Large H (Negative) Urine RBC >182 H (0-5) /hpf Urine WBC 31 H (0-5) /hpf Ur Squamous Epith Cells 3 (0-4) /hpf Amorphous Sediment Rare H (None) /hpf Urine Bacteria Moderate H (None) /hpf Hyaline Casts 12 H (0-2) /lpf Granular Casts 4 (0) /lpf Disposition <Fortunato Hernandez - Last Filed: 09/12/23 23:21> <Jennifer Medeiros - Last Filed: 09/13/23 05:22> Clinical Impression: Sepsis, Flank pain, UTI (urinary tract infection) Disposition: ADMITTED IP TO THIS HOSP Condition: Serious Referrals: Rosa Stewart MD [Primary Care Provider] - 1-2 days
[2023-09-13 00:46] LABS: ALT 51 U/L (4-34); AST 64 U/L (14-36); African American GFR (CKD) 48 (>60 ml/min/1.73 sqM); Albumin 3.9 g/dL (3.5-5.0); Alkaline Phosphatase 122 U/L (38-126); Amylase 44 U/L (30-110); Anion Gap 15 mmol/L; Blood Urea Nitrogen 27 mg/dL (7-17); Calcium 8.5 mg/dL (8.4-10.2); Carbon Dioxide 18 mmol/L (22-30); Chloride 100 mmol/L (98-107); Glucose 141 mg/dL (74-99); Lipase 33 U/L (23-300); Non-African American GFR(CKD) 42 (>60 ml/min/1.73 sqM); Potassium 4.3 mmol/L (3.5-5.1); Sodium 133 mmol/L (137-145); Total Bilirubin 0.6 mg/dL (0.2-1.3); Total Protein 6.7 g/dL (6.3-8.2)
[2023-09-13 00:49] LABS: Basophils % (A) 0 %; Eosinophils # (A) 0.3 k/uL (0-0.7); Eosinophils % (A) 5 %; HCT 23.6 % (34.0-46.0); Lymphocytes # (A) 1.4 k/uL (1.0-4.8); Lymphocytes % (A) 20 %; MCH 28.9 pg (25.0-35.0); MCHC 34.1 g/dL (31.0-37.0); MCV 84.7 fL (80.0-100.0); Mean Platelet Volume 7.7; Monocytes # (A) 0.3 k/uL (0-1.0); Monocytes % (A) 4 %; Neutrophils # (A) 4.9 k/uL (1.3-7.7); Neutrophils % (A) 68 %; Platelet Count 276 k/uL (150-450); RBC 2.78 m/uL (3.80-5.40); RDW 14.9 % (11.5-15.5); WBC 7.1 k/uL (3.8-10.6)
[2023-09-13] MEDS ORDERED: ACETAMINOPHEN TAB 325 MG TAB PO STA (00:54)
[2023-09-13] MEDS ORDERED: cefTRIAXone IN SWFI 1,000 MG/10 ML SYRINGE IVP STA (00:54)
[2023-09-13] MEDS ORDERED: ACETAMINOPHEN TAB 500 MG TAB PO STA (01:26)
[2023-09-13 03:07] LABS: Amorphous Sediment,Urine Rare /hpf; Appearance,Urine Cloudy (Clear); Bacteria,Urine Moderate /hpf; Bilirubin,Urine Negative (Negative); Blood,Urine Large (Negative); Color,Urine Light Red; Glucose,Urine (UA) Negative (Negative); Granular Casts,Urine 4 /lpf (0); Hyaline Casts,Urine 12 /lpf (0-2); Ketones,Urine Negative (Negative); Leukocyte Esterase,Urine Large (Negative); Nitrite,Urine Negative (Negative); PH, Urine 5.5 (5.0-8.0); Protein,Urine 1+ (Negative); RBC,Urine >182 /hpf (0-5); Specific Gravity,Urine 1.012 (1.001-1.035); Squamous Epithelial Cell,Urine 3 /hpf (0-4); Urobilinogen,Urine <2.0 mg/dL (<2.0); WBC,Urine 31 /hpf (0-5)
[2023-09-13] MEDS ORDERED: ONDANSETRON 4 MG/2 ML VIAL IVP STA (04:44)
[2023-09-13] MEDS ORDERED: KETOROLAC 15 MG/ML 1 ML VIAL IVP PRN (05:01)
[2023-09-13] MEDS ORDERED: ACETAMINOPHEN TAB 325 MG TAB PO PRN (05:01)
[2023-09-13] MEDS ORDERED: NALOXONE 0.4 MG/ML 1 ML VIAL IV PRN (05:01)
--- NOTE | 2023-09-13 05:14 | P.HPIM ---
History of Present Illness H&P Date: 09/13/23 Chief Complaint: hematuria , nausea and vomiting 48 year old female with hypertension she is coming in for hematuria , repeated nausea and vomiting,and fever. she was diagnosed with ESBL UTI and Bactremia and treated with long course of Antibiotics late June of this year 2022. where she was found to have large left kidney stone, requiring stenting . last week, she had another stent placed in right ureter for large 1 cm stone, and 2 days later , she noticed worsening hematuria after it started clearing up , and yesterday , she started having repeated nasuea vomiting, and 102 fever. reporting right flank pain , colicky in nature, non radiating . no aggravating or relieving factors , denies GI bleeding . review of systems Pertinent positives as noted in HPI. All other systems were reviewed and are negative on exam Constitutional: No acute distress, conversant, pleasant Eyes: Anicteric sclerae, moist conjunctiva, Pupils equal round reactive to light ENMT: NC/AT Oropharynx clear, no erythema, or exudates Neck: Supple, no masses, or JVD No carotid bruits No thyromegaly Lungs: Clear to auscultation Clear to percussion Normal respiratory effort, no accessory muscle use Cardiovascular: Heart regular in rate and rhythm, No murmurs, gallops, or rubs No peripheral edema Abdominal: Soft Nontender, no guarding, rebound or rigidity Abdomen moving with respiration Normoactive bowel sounds No hepatomegaly, No splenomegaly No palpable mass No abdominal wall hernia noted Extremities: No digital cyanosis No clubbing Pedal pulses intact and symmetrical Radial pulses intact and symmetrical No calf tenderness Psychiatric: Alert and oriented to person, place and time Appropriate affect fair judgement Neuro Muscles Strength 5/5 in all 4 extremities Sensation to light touch grossly present throughout Cranial nerves II-XII grossly intact Lymphatics: no palpable cervical or supraclavicular lymph nodes Past Medical History Past Medical History: GERD/Reflux, Hypertension, Osteoarthritis (OA), Pneumonia Additional Past Medical History / Comment(s): kidney stones/septic stone, environmental allergies, pneumonia aug 2021 post-op, herniated discs., occasional tachycardia. ileus History of Any Multi-Drug Resistant Organisms: ESBL Date of last positivie culture/infection: 07/14/23 MDRO Source:: urine Past Surgical History: Adenoidectomy, Bariatric Surgery, Section, C holecystectomy, Hysterectomy, Joint Replacement, Orthopedic Surgery, Tonsillectomy Additional Past Surgical History / Comment(s): 08/09/23 cystoscopy with L lithotripsy/L stent removed, left knee replacement, arthroscopy right knee ., lap band 16 yrs ago- no fluid in band per pt. surgery at [facility].) 03/23/22 trigger finger , KIDNEY STONE SX, COLONOSCOPY Past Anesthesia/Blood Transfusion Reactions: Postoperative Nausea & Vomiting (PONV) Additional Past Anesthesia/Blood Transfusion Reaction / Comment(s): grandmother-difficulty waking up, slight fever. Past Psychological History: Depression Smoking Status: Never smoker Past Alcohol Use History: None Reported Past Drug Use History: None Reported - Past Family History Mother Family Medical History: Cancer, Hypertension Medications and Allergies Home Medications Medication Instructions Recorded Confirmed Type Metoprolol Succinate (ER) [Toprol 150 mg PO BID 05/07/18 09/06/23 History XL] Pregabalin [Lyrica] 150 mg PO HS 04/21/20 09/06/23 History Vortioxetine Hydrobromide 20 mg PO HS 04/21/20 09/06/23 History [Trintellix] Zolpidem [Ambien] 10 mg PO HS 04/21/20 09/06/23 History ARIPiprazole [Abilify] 2 mg PO HS 03/10/21 09/06/23 History amLODIPine [Norvasc] 5 mg PO HS 03/10/21 09/06/23 History Cyclobenzaprine [Flexeril] 10 mg PO BID PRN 07/09/23 09/06/23 History DULoxetine HCL [Cymbalta] 60 mg PO HS 07/09/23 09/06/23 History cloNIDine HCL [Catapres] 0.1 mg PO HS 07/09/23 09/06/23 History HYDROcodone/APAP 5-325MG [[place] 1 tab PO Q4HR PRN #14 tab 09/06/23 Rx 5-325] Ketorolac [Toradol] 10 mg PO Q6HR #15 tab 09/10/23 Rx Allergies Allergy/AdvReac Type Severity Reaction Status Date / Time ofloxacin [From Floxin] AdvReac Unknown Hallucinati Verified 09/12/23 23:32 ons SAI Inhibitors AdvReac ANGIOEDEMA Verified 09/12/23 23:32 bupropion [From Wellbutrin] AdvReac seizure Verified 09/12/23 23:32 fluoxetine [From Prozac] AdvReac Hallucinati Verified 09/12/23 23:32 ons venlafaxine [From Effexor] AdvReac seizure Verified 09/12/23 23:32 Physical Exam Vitals: Vital Signs Temp Pulse Resp BP Pulse Ox 09/12/23 23:30 100.5 F H 118 H 20 137/61 94 L Intake and Output 09/12/23 09/12/23 09/13/23 14:59 22:59 06:59 Other: Weight 122.47 kg Results CBC & Chem 7: 09/13/23 00:25 09/13/23 00:25 Labs: Abnormal Lab Results - Last 24 Hours (Table) 09/13/23 09/13/23 09/13/23 Range/Units 00:25 00:25 02:08 RBC 2.78 L (3.80-5.40) m/uL Hgb 8.0 L D (11.4-16.0) gm/dL Hct 23.6 L (34.0-46.0) % Sodium 133 L (137-145) mmol/L Carbon Dioxide 18 L (22-30) mmol/L BUN 27 H (7-17) mg/dL Creatinine 1.45 H (0.52-1.04) mg/dL Glucose 141 H (74-99) mg/dL AST 64 H (14-36) U/L ALT 51 H (4-34) U/L Urine Appearance Cloudy H (Clear) Urine Protein 1+ H (Negative) Urine Blood Large H (Negative) Ur Leukocyte Esterase Large H (Negative) Urine RBC >182 H (0-5) /hpf Urine WBC 31 H (0-5) /hpf Amorphous Sediment Rare H (None) /hpf Urine Bacteria Moderate H (None) /hpf Hyaline Casts 12 H (0-2) /lpf Assessment and Plan Assessment: 48 year old female with bilateral kidney stones, had a new stent placed for right kidney stone last week, and now presenting with worsening hematuria , fever, nausea and vomiting for the past couple days .I discussed the case with ED doc and I accepted the admission for SERGIO with suspected obstructive uropathy, secondary to bilateral kidney stones, rule out sepsis UTI with anticipated length of stay > 2 midnights sepsis (tachy , fever), pyelonephritis with complex UTI bilateral kidney stones s/p stents SERGIO suspected obstructive uropathy follow up culture rocephine 1 gm IVPB daily pain control with morphine 4 mg IVP q 4hr ketorolac 15 mg IVP q 6hr prn zofran 4 mg IVP q 8 hr urology consult avoid nephro toxic meds IV F hydration with normal saline 150 cc per hour monitor renal function Cr 1.45 , BUN 27 , Na 133 ,K 4.3 acute anemia hematuria monitor hemoglobin Hgb 8 (drop of 3 gm from baseline ) kalie hematuria hypertension resume home meds amlodipine, clonidine , metoprolol verify home meds full code DVT PPX mechanical
[2023-09-13] MEDS ORDERED: SODIUM CHLORIDE 0.9% 2,000 ML IV ONE (05:20)
[2023-09-13] MEDS: SODIUM CHLORIDE 0.9% 1,000 ML IV SCH ×3 (07:01→20:09)
--- NOTE | 2023-09-13 07:36 | P.GSCN ---
History of Present Illness Consult date: 09/13/23 History of present illness: 48 yo female with history of stones She recently had a right ureterscopy with laser lithotripsy. She came to the hospital with nausea, vomiting,fever and hematuria. She had a stent placed post ureteroscopy. SHe is admitted for antibiotics. A KUB shows the right stent is in appropriate position. There is no notable hydronephrosis on ultrasound Review of Systems All systems: negative - Constitutional Denies fever, Denies weight loss - EENT Eyes: denies blurred vision Ears, nose, mouth and throat: Denies dysphagia - Cardiovascular Denies chest pain, Denies shortness of breath - Respiratory Denies cough, Denies 7 - Gastrointestinal Reports as per HPI - Genitourinary Genitourinary: Denies dysuria, Denies hematuria - Integumentary Denies rash, Denies unusual bruising - Neurological Denies headaches, Denies syncope - Hematologic/Lymphatic Denies easy bleeding, Denies easy bruising Past Medical History Past Medical History: GERD/Reflux, Hypertension, Osteoarthritis (OA), Pneumonia Additional Past Medical History / Comment(s): kidney stones/septic stone, environmental allergies, pneumonia aug 2021 post-op, herniated discs., occasional tachycardia. ileus History of Any Multi-Drug Resistant Organisms: ESBL Year Discovered:: 07/14/23 MDRO Source:: urine Past Surgical History: Adenoidectomy, Bariatric Surgery, Section, Cholecystectomy, Hysterectomy, Joint Replacement, Orthopedic Surgery, Tonsillectomy Additional Past Surgical History / Comment(s): 08/09/23 cystoscopy with L lithotripsy/L stent removed, left knee replacement, arthroscopy right knee ., lap band 16 yrs ago- no fluid in band per pt. surgery at [facility].) 03/23/22 trigger finger , KIDNEY STONE SX, COLONOSCOPY Past Anesthesia/Blood Transfusion Reactions: Postoperative Nausea & Vomiting (PONV) Additional Past Anesthesia/Blood Transfusion Reaction / Comm: grandmother- difficulty waking up, slight fever. Past Psychological History: Depression Smoking Status: Never smoker Past Alcohol Use History: None Reported Past Drug Use History: None Reported - Past Family History Mother Family Medical History: Cancer, Hypertension Medications and Allergies Home Medications Medication Instructions Recorded Confirmed Type Metoprolol Succinate (ER) [Toprol 150 mg PO BID 05/07/18 09/06/23 History XL] Pregabalin [Lyrica] 150 mg PO HS 04/21/20 09/06/23 History Vortioxetine Hydrobromide 20 mg PO HS 04/21/20 09/06/23 History [Trintellix] Zolpidem [Ambien] 10 mg PO HS 04/21/20 09/06/23 History ARIPiprazole [Abilify] 2 mg PO HS 03/10/21 09/06/23 History amLODIPine [Norvasc] 5 mg PO HS 03/10/21 09/06/23 History Cyclobenzaprine [Flexeril] 10 mg PO BID PRN 07/09/23 09/06/23 History DULoxetine HCL [Cymbalta] 60 mg PO HS 07/09/23 09/06/23 History cloNIDine HCL [Catapres] 0.1 mg PO HS 07/09/23 09/06/23 History HYDROcodone/APAP 5-325MG [[place] 1 tab PO Q4HR PRN #14 tab 09/06/23 Rx 5-325] Ketorolac [Toradol] 10 mg PO Q6HR #15 tab 09/10/23 Rx Allergies Allergy/AdvReac Type Severity Reaction Status Date / Time ofloxacin [From Floxin] AdvReac Unknown Hallucinati Verified 09/12/23 23:32 ons SAI Inhibitors AdvReac ANGIOEDEMA Verified 09/12/23 23:32 bupropion [From Wellbutrin] AdvReac seizure Verified 09/12/23 23:32 fluoxetine [From Prozac] AdvReac Hallucinati Verified 09/12/23 23:32 ons venlafaxine [From Effexor] AdvReac seizure Verified 09/12/23 23:32 Surgical - Exam Vital Signs Temp Pulse Resp BP Pulse Ox 100.5 F H 118 H 20 137/61 94 L 09/12/23 23:30 09/12/23 23:30 09/12/23 23:30 09/12/23 23:30 09/12/23 23:30 - General well developed, well nourished, no distress - Eyes normal ocular movement, no icteric - ENT no hearing loss, no congestion - Neck no masses, trachea midline - Respiratory normal respiratory effort, clear to auscultation - Abdomen Abdomen: soft, non tender, no guarding, no rigid, no rebound - Integumentary no rash, no abnormal pigmentation - Neurologic no disoriented, no combative - Psychiatric oriented to time, oriented to person, oriented to place, speech is normal, memory intact Results - Labs 09/13/23 00:25 09/13/23 00:25 Abnormal Lab Results - Last 24 Hours (Table) 09/13/23 09/13/23 09/13/23 Range/Units 00:25 00:25 02:08 RBC 2.78 L (3.80-5.40) m/uL Hgb 8.0 L D (11.4-16.0) gm/dL Hct 23.6 L (34.0-46.0) % Sodium 133 L (137-145) mmol/L Carbon Dioxide 18 L (22-30) mmol/L BUN 27 H (7-17) mg/dL Creatinine 1.45 H (0.52-1.04) mg/dL Glucose 141 H (74-99) mg/dL AST 64 H (14-36) U/L ALT 51 H (4-34) U/L Urine Appearance Cloudy H (Clear) Urine Protein 1+ H (Negative) Urine Blood Large H (Negative) Ur Leukocyte Esterase Large H (Negative) Urine RBC >182 H (0-5) /hpf Urine WBC 31 H (0-5) /hpf Amorphous Sediment Rare H (None) /hpf Urine Bacteria Moderate H (None) /hpf Hyaline Casts 12 H (0-2) /lpf Diabetes panel 09/13/23 Range/Units 00:25 Sodium 133 L (137-145) mmol/L Potassium 4.3 (3.5-5.1) mmol/L Chloride 100 (98-107) mmol/L Carbon Dioxide 18 L (22-30) mmol/L BUN 27 H (7-17) mg/dL Creatinine 1.45 H (0.52-1.04) mg/dL Glucose 141 H (74-99) mg/dL Calcium 8.5 (8.4-10.2) mg/dL AST 64 H (14-36) U/L ALT 51 H (4-34) U/L Alkaline Phosphatase 122 (38-126) U/L Total Protein 6.7 (6.3-8.2) g/dL Albumin 3.9 (3.5-5.0) g/dL Calcium panel 09/13/23 Range/Units 00:25 Calcium 8.5 (8.4-10.2) mg/dL Albumin 3.9 (3.5-5.0) g/dL Pituitary panel 09/13/23 Range/Units 00:25 Sodium 133 L (137-145) mmol/L Potassium 4.3 (3.5-5.1) mmol/L Chloride 100 (98-107) mmol/L Carbon Dioxide 18 L (22-30) mmol/L BUN 27 H (7-17) mg/dL Creatinine 1.45 H (0.52-1.04) mg/dL Glucose 141 H (74-99) mg/dL Calcium 8.5 (8.4-10.2) mg/dL Adrenal panel 09/13/23 Range/Units 00:25 Sodium 133 L (137-145) mmol/L Potassium 4.3 (3.5-5.1) mmol/L Chloride 100 (98-107) mmol/L Carbon Dioxide 18 L (22-30) mmol/L BUN 27 H (7-17) mg/dL Creatinine 1.45 H (0.52-1.04) mg/dL Glucose 141 H (74-99) mg/dL Calcium 8.5 (8.4-10.2) mg/dL Total Bilirubin 0.6 (0.2-1.3) mg/dL AST 64 H (14-36) U/L ALT 51 H (4-34) U/L Alkaline Phosphatase 122 (38-126) U/L Total Protein 6.7 (6.3-8.2) g/dL Albumin 3.9 (3.5-5.0) g/dL - Imaging Abdominal x-ray: report reviewed, image reviewed US - kidney/bladder: report reviewed, image reviewed Assessment and Plan Assessment: Impression: right pyelonephritis status post stone manipulation. Active uroli thiasis. Medical illnesses. Plan: cultures and antibiotics
[2023-09-13] MEDS ORDERED: LEVOFLOXACIN 750MG-D5W PMX 750 MG in DEXTROSE/WATER 1 150ML.BAG IVPB SCH (08:15)
--- NOTE | 2023-09-13 08:45 | US ---
EXAMINATION TYPE: US renals and bladder DATE OF EXAM: 09/13/2023 COMPARISON: US Renal 07/09/23; [place] guidance 09/06/23 CLINICAL INDICATION: Female, 48 years old with history of SERGIO stone; Hx recent right ureteral stent 1 11/07/24 EXAM MEASUREMENTS: Right Kidney: 13.2 x 7.6 x 6.0 cm Left Kidney: 12.2 x 7.4 x 5.7 cm Right Kidney: No masses seen no hydronephrosis. No calculi. Left Kidney: Small, echogenic focus with twinkle artifact - measuring 0.68 cm no hydronephrosis. No masses. Bladder: Not fully distended; 138 ml; anechoic Bilateral Jets seen: No IMPRESSION: 1. No evidence for obstructive uropathy. 2. left nonobstructing calculus.
--- NOTE | 2023-09-13 08:47 | XR ---
EXAMINATION TYPE: XR KUB DATE OF EXAM: 09/13/2023 7:31 AM CLINICAL INDICATION:Female, 48 years old with history of stent location right; [facility] COMPARISON: 09/06/2023.. TECHNIQUE: One radiographic view of the abdomen was obtained. FINDINGS/IMPRESSION: 1. Right ureteral stent with proximal and distal pigtails appearing in appropriate position. 2. Nonspecific bowel gas pattern. 3. Gastric lap banding fusion site present.
[2023-09-13] MEDS: ONDANSETRON 4 MG/2 ML VIAL IVP PRN (10:34)
[2023-09-13] MEDS: METOPROLOL SUCCINATE (ER) 50 MG TAB.ER.24H PO SCH ×2 (10:34→21:44)
[2023-09-13] MEDS: MORPHINE SULFATE 4 MG/ML SYRINGE IVP PRN ×3 (10:38→22:16)
[2023-09-13] MEDS: ERTAPENEM 1 GM in SODIUM CHLORIDE 0.9% 50 ML IVPB SCH (13:30)
[2023-09-13] MEDS: cloNIDine HCL 0.1 MG TAB PO SCH (21:44)
[2023-09-13] MEDS: amLODIPine 5 MG TAB PO SCH (21:44)
--- NOTE | 2023-09-13 22:51 | P.CONS ---
History of Present Illness - Reason for Consult Consult date: 09/13/23 - History of Present Illness Patient is a 48-year-old female with a past medical history definite for hypertension osteoarthritis patient did have a history of complicated UTI with recent admission to the hospital in June 2023 with the patient was admitted with a complicated UTI and did have ESBL E. coli bacteremia that has been treated with a course of IV antibiotic therapy patient mentions since discharge patient did have lithotripsy on both of her kidneys, patient mention her left kidney is free of stone however he still has some stones to the right kidney and recently did have right ureteroscopy with laser lithotripsy patient now presenting to the hospital with intractable nausea vomiting patient did have a fever of 102 F and has been complaining of some pain to the right flank area which is moderate intensity sharp in nature without any radiation with the symptoms the patient was evaluated on presentation to the hospital she did have a fever 100.5 degrees for night patient was tachycardic heart rate of 103 not hypotensive or hypoxic white count of 7.1 BUN/creatinine has been mildly eleva di does observe mildly elevated urine was positive COVID test was negative patient did have a renal ultrasound no evidence of obstructive uropathy left nonobstructing calculus patient also have a KUB x-ray right ureteral stent with proximal and distal pigtail is appearing in appropriate position patient did receive a dose of ceftriaxone Levaquin infectious he was consulted for further management of antibiotic therapy Past Medical History Past Medical History: GERD/Reflux, Hypertension, Osteoarthritis (OA), Pneumonia Additional Past Medical History / Comment(s): kidney stones/septic stone, environmental allergies, pneumonia aug 2021 post-op, herniated discs., occasional tachycardia. ileus History of Any Multi-Drug Resistant Organisms: ESBL Year Discovered:: 07/14/23 MDRO Source:: urine Past Surgical History: Adenoidectomy, Bariatric Surgery, Section, Cholecystectomy, Hysterectomy, Joint Replacement, Orthopedic Surgery, Tonsillectomy Additional Past Surgical History / Comment(s): 08/09/23 cystoscopy with L lithotripsy/L stent removed, left knee replacement, arthroscopy right knee ., l ap band 16 yrs ago- no fluid in band per pt. surgery at [facility].) 03/23/22 trigger finger , KIDNEY STONE SX, COLONOSCOPY Past Anesthesia/Blood Transfusion Reactions: Postoperative Nausea & Vomiting (PONV) Additional Past Anesthesia/Blood Transfusion Reaction / Comm: grandmother- difficulty waking up, slight fever. Past Psychological History: Depression Smoking Status: Never smoker Past Alcohol Use History: None Reported Past Drug Use History: None Reported - Past Family History Mother Family Medical History: Cancer, Hypertension Medications and Allergies Home Medications Medication Instructions Recorded Confirmed Type Metoprolol Succinate (ER) [Toprol 150 mg PO BID 05/07/18 09/13/23 History XL] Pregabalin [Lyrica] 150 mg PO HS 04/21/20 09/13/23 History Vortioxetine Hydrobromide 20 mg PO HS 04/21/20 09/13/23 History [Trintellix] Zolpidem [Ambien] 10 mg PO HS 04/21/20 09/13/23 History ARIPiprazole [Abilify] 2 mg PO HS 03/10/21 09/13/23 History amLODIPine [Norvasc] 5 mg PO HS 03/10/21 09/13/23 History Cyclobenzaprine [Flexeril] 10 mg PO BID PRN 07/09/23 09/13/23 History DULoxetine HCL [Cymbalta] 60 mg PO HS 07/09/23 09/13/23 History cloNIDine HCL [Catapres] 0.1 mg PO HS 07/09/23 09/13/23 History Ketorolac [Toradol] 10 mg PO Q6HR PRN 09/13/23 09/13/23 History Allergies Allergy/AdvReac Type Severity Reaction Status Date / Time ofloxacin [From Floxin] AdvReac Unknown Hallucinati Verified 09/13/23 08:11 ons SAI Inhibitors AdvReac ANGIOEDEMA Verified 09/13/23 08:11 bupropion [From Wellbutrin] AdvReac seizure Verified 09/13/23 08:11 fluoxetine [From Prozac] AdvReac Hallucinati Verified 09/13/23 08:11 ons venlafaxine [From Effexor] AdvReac seizure Verified 09/13/23 08:11 Physical Exam Vitals: Vital Signs Temp Pulse Resp BP Pulse Ox 09/13/23 10:41 100 18 144/88 96 09/13/23 07:53 98.2 F 103 H 16 131/82 96 09/13/23 05:31 105 H 18 123/78 96 09/12/23 23:30 100.5 F H 118 H 20 137/61 94 L Intake and Output 09/12/23 09/13/23 09/13/23 22:59 06:59 14:59 Other: Weight 122.47 kg Results CBC & Chem 7: 09/13/23 00:25 09/13/23 00:25 Labs: Abnormal Lab Results - Last 24 Hours (Table) 09/13/23 09/13/23 09/13/23 Range/Units 00:25 00:25 02:08 RBC 2.78 L (3.80-5.40) m/uL Hgb 8.0 L D (11.4-16.0) gm/dL Hct 23.6 L (34.0-46.0) % Sodium 133 L (137-145) mmol/L Carbon Dioxide 18 L (22-30) mmol/L BUN 27 H (7-17) mg/dL Creatinine 1.45 H (0.52-1.04) mg/dL Glucose 141 H (74-99) mg/dL AST 64 H (14-36) U/L ALT 51 H (4-34) U/L Urine Appearance Cloudy H (Clear) Urine Protein 1+ H (Negative) Urine Blood Large H (Negative) Ur Leukocyte Esterase Large H (Negative) Urine RBC >182 H (0-5) /hpf Urine WBC 31 H (0-5) /hpf Amorphous Sediment Rare H (None) /hpf Urine Bacteria Moderate H (None) /hpf Hyaline Casts 12 H (0-2) /lpf Assessment and Plan Plan: 1-patient was in the hospital with sepsis in this patient with fever and tachycardia positive UA source is likely complicated UTI, patient recently did have ESBL E. coli UTI and bacteremia and will need to cover for resistant gram- negative while waiting for the culture to be finalized 2-discontinue Levaquin 3-start the patient on Invanz 1 g daily while waiting for the culture to finalize We will follow on clinical condition and cultures to further adjust medication if needed Thank you for this consultation we will follow the patient along with you Dictation was produced using [employer] dictation software. please excuse any grammatical, word or spelling errors. Time with Patient: Greater than 30
[2023-09-14] MEDS: VORTIOXETINE HYDROBROMIDE 20 MG TABLET PO SCH ×2 (00:46→19:43)
[2023-09-14] MEDS: DULoxetine HCL 60 MG CAPSULE.DR PO SCH ×2 (00:46→19:44)
[2023-09-14] MEDS: PREGABALIN 75 MG CAP PO SCH ×2 (00:46→19:43)
[2023-09-14] MEDS: ARIPiprazole 2 MG TAB PO SCH ×2 (00:47→19:44)
[2023-09-14] MEDS: MORPHINE SULFATE 4 MG/ML SYRINGE IVP PRN ×4 (04:55→22:21)
[2023-09-14] MEDS: ONDANSETRON 4 MG/2 ML VIAL IVP PRN (04:55)
[2023-09-14 06:54] LABS: HCT 32.1 % (34.0-46.0); HGB 10.5 gm/dL (11.4-16.0); Hypochromasia Slight; MCH 28.4 pg (25.0-35.0); MCHC 32.7 g/dL (31.0-37.0); Mean Platelet Volume 7.8; Platelet Count 228 k/uL (150-450); RBC 3.69 m/uL (3.80-5.40); RDW 14.9 % (11.5-15.5); WBC 4.9 k/uL (3.8-10.6)
[2023-09-14 07:13] LABS: African American GFR (CKD) >90 (>60 ml/min/1.73 sqM); Anion Gap 10 mmol/L; Blood Urea Nitrogen 12 mg/dL (7-17); Calcium 8.5 mg/dL (8.4-10.2); Carbon Dioxide 23 mmol/L (22-30); Chloride 109 mmol/L (98-107); Glucose 155 mg/dL (74-99); Non-African American GFR(CKD) >90 (>60 ml/min/1.73 sqM); Potassium 4.1 mmol/L (3.5-5.1); Sodium 142 mmol/L (137-145)
[2023-09-14] MEDS: SODIUM CHLORIDE 0.9% 1,000 ML IV SCH ×2 (07:22→16:14)
[2023-09-14] MEDS: METOPROLOL SUCCINATE (ER) 50 MG TAB.ER.24H PO SCH ×2 (07:27→19:43)
--- NOTE | 2023-09-14 07:39 | P.PN ---
Subjective Progress Note Date: 09/14/23 It is in the hospital post-right ureteroscopy with laser lithotripsy and stent placement. She has a postoperative kidney infection. She is feeling better. Objective - Vital Signs Vital signs: Vital Signs Temp 97.6 F 09/14/23 00:51 Pulse 76 09/14/23 00:51 Resp 17 09/14/23 00:51 BP 112/69 09/14/23 00:51 Pulse Ox 92 L 09/14/23 00:51 FiO2 Intake & Output 09/13/23 09/14/23 09/14/23 18:59 06:59 18:59 Intake Total 240 Balance 240 Weight 122.47 kg Intake: Oral 240 Other: # Voids 0 2 - Labs CBC & Chem 7: 09/14/23 05:45 09/14/23 05:45 Labs: Abnormal Lab Results - Last 24 Hours (Table) 09/14/23 09/14/23 Range/Units 05:45 05:45 RBC 3.69 L (3.80-5.40) m/uL Hgb 10.5 L (11.4-16.0) gm/dL Hct 32.1 L (34.0-46.0) % Chloride 109 H (98-107) mmol/L Glucose 155 H (74-99) mg/dL Assessment and Plan Assessment: Impression: Postoperative urinary infection status post ureteroscopy laser lithotripsy Recommendations: The patient stent is in place on KUB. Once oral antibiotics are determine she can be discharged home. I will remove her stent later today upon discharge
[2023-09-14] MEDS: ERTAPENEM 1 GM in SODIUM CHLORIDE 0.9% 50 ML IVPB SCH (11:24)
[2023-09-14] MEDS ORDERED: BUTALB/APAP/CAFF 50-325-40MG TAB PO PRN (14:39)
[2023-09-14] MEDS ORDERED: BUTALB/APAP/CAFF 50-325-40MG TAB PO STA (14:39)
--- NOTE | 2023-09-14 14:46 | P.PN ---
Subjective Progress Note Date: 09/14/23 48-year-old female with history of ESBL UTI and bacteremia, history of large left nephrolithiasis requring stenting, hypertension presents to the ED for hematuria, N/V and fever. She recently underwent cystoscopy with right ureteroscopy with laser lithotripsy, stone basketing and stent placement in the right ureter on 09/[address] Berry. She reports right flank pain. In the ED, she underwent extensive evaluation. T 100.5F, HR 118, BP 137/61, RR 20, 94% on RA. CBC shows Hg 8 and Hct 23.6. CMP Na 133, bicarb 18, BUN 27, Cr 1.45, glu 141, AST 64, ALT 51. UA large blood, large LE. COVID negative. Renal US no evidence of obstructive uropathy, left nonobstructing calculus. Patient was given NS bolus, Rocpehin and admitted for further management. ID consulted, antibiotics switched to Ertapenem. 09/14 Patient was seen and examined. Generally feeling better since admission. Complains of headache associated with migraines. CBC Hg 10.5 Hct 32.1. BMP Cl 109, glu 155. UCx and BCx negative so far. General: non toxic, no distress, appears at stated age Derm: warm, dry Head: atraumatic, normocephalic, symmetric Eyes: EOMI, no lid lag, anicteric sclera Cardiovascular: S1S2 reg, no murmur Lungs: CTA bilateral, no rhonchi, no rales , no accessory muscle use Abdominal: soft, nontender to palpation, no guarding, no appreciable organomegaly Ext: no gross muscle atrophy, no edema, no contractures Neuro: no focal neuro deficits Psych: Alert, oriented, appropriate affect Based on my assessment of this patient, this patient meets a high complexity level of care. Patient has an acute diagnosis of UTI sepsis in the setting of recently underwent cystoscopy with right ureteroscopy with laser lithotripsy, stone basketing and stent placement in the right ureter on 09/[address] Berry that poses a threat to life or bodily function. She has a history of ESBL. Sepsis related to UTI: Continue Ertapenem 1g IV QD. Follow UCx and BCx. Telemetry monitoring. Continue NS at 100 cc/hr. ID and Urology on board. Acute blood loss anemia due to Hematuria: Trend CBC. Transfuse if Hg < 7. Resolved: SERGIO, HypoNa, metabolic acidosis CODE STATUS: FULL CODE. DVT Prophylaxis: SCDs GI Prophylaxis: Designated medical POA if patient is not able to make medical decisions for themselves: I have reviewed the following organizational effectiveness consultant notes: Urology note. I have reviewed the results of the following tests: CBC, BMP, UCx, BCx. I have ordered the following tests: CBC Objective - Vital Signs Vital signs: Vital Signs Temp 98.1 F 09/14/23 12:38 Pulse 75 09/14/23 12:38 Resp 17 09/14/23 12:38 BP 131/82 09/14/23 12:38 Pulse Ox 92 L 09/14/23 12:38 FiO2 Intake & Output 09/13/23 09/14/23 09/14/23 18:59 06:59 18:59 Intake Total 240 Balance 240 Weight 122.47 kg Intake: Oral 240 Other: # Voids 0 2 - Labs CBC & Chem 7: 09/14/23 05:45 09/14/23 05:45 Labs: Abnormal Lab Results - Last 24 Hours (Table) 09/14/23 09/14/23 Range/Units 05:45 05:45 RBC 3.69 L (3.80-5.40) m/uL Hgb 10.5 L (11.4-16.0) gm/dL Hct 32.1 L (34.0-46.0) % Chloride 109 H (98-107) mmol/L Glucose 155 H (74-99) mg/dL Microbiology - Last 24 Hours (Table) 09/13/23 00:06 Blood Culture - Preliminary Blood 09/13/23 02:08 Urine Culture - Final Urine,Voided
--- NOTE | 2023-09-14 15:56 | P.PN ---
Subjective Progress Note Date: 09/14/23 Principal diagnosis: Reason for follow-up is complicated UTI/pyonephritis Patient is a 48-year-old female with a past medical history definite for hypertension osteoarthritis patient did have a history of complicated UTI with recent admission to the hospital in June 2023 with ESBL E. coli bacteremia secondary coming complicated UTI present to hospital with intractable nausea vomiting fever abnormal UA concerning for pyelonephritis On today's evaluation that is 09/14/2023 patient did have resolution of her fever and is afebrile this morning patient is breathing comfortably on room air denies any chest pain shortness of breath or cough no further nausea vomiting abdominal pain or diarrhea Objective - Vital Signs Vital signs: Vital Signs Temp 98.1 F 09/14/23 12:38 Pulse 75 09/14/23 12:38 Resp 17 09/14/23 12:38 BP 131/82 09/14/23 12:38 Pulse Ox 92 L 09/14/23 12:38 FiO2 Intake & Output 09/13/23 09/14/23 09/14/23 18:59 06:59 18:59 Intake Total 240 Balance 240 Weight 122.47 kg Intake: Oral 240 Other: # Voids 0 2 - Exam GENERAL DESCRIPTION: Middle-aged female up n bed in no distress RESPIRATORY SYSTEM: Unlabored breathing , decreased breath sounds at bases HEART: S1 S2 regular rate and rhythm , ABDOMEN: Soft , no tenderness EXTREMITIES: No edema feet - Labs CBC & Chem 7: 09/14/23 05:45 09/14/23 05:45 Labs: Abnormal Lab Results - Last 24 Hours (Table) 09/14/23 09/14/23 Range/Units 05:45 05:45 RBC 3.69 L (3.80-5.40) m/uL Hgb 10.5 L (11.4-16.0) gm/dL Hct 32.1 L (34.0-46.0) % Chloride 109 H (98-107) mmol/L Glucose 155 H (74-99) mg/dL Microbiology - Last 24 Hours (Table) 09/13/23 00:06 Blood Culture - Preliminary Blood 09/13/23 02:08 Urine Culture - Final Urine,Voided Assessment and Plan (1) Sepsis Current Visit: Yes Status: Acute Code(s): A41.9 - SEPSIS, UNSPECIFIED ORGANISM SNOMED Code(s): 38251130 (2) UTI (urinary tract infection) Current Visit: Yes Status: Acute Code(s): N39.0 - URINARY TRACT INFECTION, SITE NOT SPECIFIED SNOMED Code(s): 21525826 Plan: 1-patient was in the hospital with sepsis in this patient with fever and tachycardia positive UA source is likely complicated UTI, patient recently did have ESBL E. coli UTI and bacteremia and will need to cover for resistant gram- negative while waiting for the culture to be finalized 2patient to continue with Invanz 1 g daily while waiting for the culture to fin jenny multiple question concern answered Dictation was produced using [employer] dictation software. please excuse any grammatical, word or spelling errors. Time with Patient: Less than 30
[2023-09-14] MEDS: cloNIDine HCL 0.1 MG TAB PO SCH (19:43)
[2023-09-14] MEDS: amLODIPine 5 MG TAB PO SCH (19:44)
[2023-09-15] MEDS: ALPRAZolam 0.25 MG TAB PO PRN (01:18)
[2023-09-15] MEDS: SODIUM CHLORIDE 0.9% 1,000 ML IV SCH ×3 (04:04→21:16)
[2023-09-15] MEDS: MORPHINE SULFATE 4 MG/ML SYRINGE IVP PRN (04:33)
[2023-09-15] MEDS: METOPROLOL SUCCINATE (ER) 50 MG TAB.ER.24H PO SCH ×2 (08:49→21:18)
[2023-09-15] MEDS: ERTAPENEM 1 GM in SODIUM CHLORIDE 0.9% 50 ML IVPB SCH (11:36)
--- NOTE | 2023-09-15 11:50 | CDI ---
Documentation Clarification Form Date: 09/15/2023 11:22:00 AM From: Zahraa Tompkins RN CCDS Phone: [phone] Admit Date: 09/13/2023 05:09:00 AM Patient Name: Katty Ruiz Visit Number: [id number] Discharge Date: ATTENTION: The Clinical Documentation Specialists (CDI) and [facility] Coding Staff appreciate your assistance in clarifying documentation. Please respond to the clarification below the line at the bottom and electronically sign. The CDI & [facility] Coding staff will review the response and follow-up if needed. Please note: Queries are made part of the Legal Health Record. If you have any questions, please contact the author of this message via ITS. Dr. Andra Selby Right pyelonephritis status post stone manipulation. Documented in Urology consult, 09/13. Additional clarification regarding this diagnosis is requested. History/Risk Factors: 48-year-old female recently underwent cystoscopy with right ureteroscopy with laser lithotripsy, stone basketing and stent placement in the right ureter on 09/06. Medical History: HTN. 09/14, Medicine note. Clinical Indicators: Vital Signs, 09/13: B/P 137/61; HR 118; RR 20; Temp 100.5 F Oral; Spo2 94% room air. WBC, 09/13: 7.1 Urinalysis 09/13: Appearance Light red, Cloudy, protein 1+, blood Large, Leukocyte Esterase, RBC >182, Wbc 31; Amorphous sediment rare, Bacteria Moderate, Hyaline casts 12, Granular Casts 4 Urine Tlkaiad05/27: No growth after 18 hours 09/04/23 Treatment: 09/13 0.9NS 2L IV Bolus; 09/13 0.9ns 100cc/hr; Accurate I &O's, Urology and ID consults. Antibiotics: 09/13 Rocepin IVP x 1; 09/13 Ertapenem IVPB Daily Please clarify if there is an additional diagnosis associated with the Pyelonephritis: [ ] Pyelonephritis secondary to recent right ureterscopy with laser lithotripsy procedure. [ ] Other, please specify [ ] Unable to determine (Template Last Revised: November 2020) Lico is not related to procedure MTDD
[2023-09-15] MEDS: HYDROcodone/APAP 5-325MG 1 EACH TAB PO PRN ×2 (15:02→21:18)
--- NOTE | 2023-09-15 15:18 | P.PN ---
Subjective Progress Note Date: 09/15/23 (delayed charting seen at 1045) Patient is a 48-year-old female with hypertension, GERD, osteoarthritis, and history of prior kidney stones with ESBL pyelonephritis who presented to the [facility] with complaints of hematuria, vomiting, and fever. She underwent cystoscopy with laser lithotripsy and stent insertion on 09/06/23. On arrival her labs were remarkable for BUN 27 and creatinine 1.45. There was concerns for possible urinary tract infection which was started on IV antibiotics. Arrangements were made for admission. She was seen by urology and infectious disease. Concern for possible recurrent ESBL in her urine and she was therefore started on ertapenem. Urine culture came back negative as well as blood cultures negative for 24 hours and antibiotics were D escalated to Rocephin. Patient seen and examined at bedside. She reports that she just doesn't feel well today. Her blood pressure was slightly low this morning at 87/54. She has no other complaints currently. She can does continue to have some right flank pain but it is getting better. Vital signs reviewed General: nontoxic, no distress, appears at stated age Cardiovascular: S1S2 reg, no murmur, positive posterior tibial pulse bilateral, Lungs: CTA bilateral, no rhonchi, no rales , no accessory muscle use Abdominal: soft, nontender to palpation, no guarding, no appreciable organomegaly Ext: no gross muscle atrophy, no edema b/l lower extremities, no contractures Neuro: CN II-XI grossly intact, no focal neuro deficits Psych: Alert, oriented, appropriate affect Assessment/Plan: Pyelonephritis, unrelated to recent surgical procedure Hematuria Nephrolithiasis -Case discussed with Dr. Motley. We'll transition to IV Rocephin given negative urine culture and monitor for 24 hours. If patient continues to be afebrile could consider discharge home on Ceftin. Patient will follow up with Dr. Trejo in the outpatient setting for removal of her stent Acute blood loss anemia -[place] to be related to recent stent placement -Repeat CBC in a.m. -No indication for transfusion Hypertension -One episode of hypotension this morning, metoprolol held - follow BP Class III Obesity - outpatient structured weight loss AK I, resolved Hyponatremia, resolved Sepsis, resolved About acidosis, resolved Imaging: None new Data Review: None new DVT prophylaxis: SCDs Anticipated discharge date: in AM Anticipated discharge place: home This dictation was prepared using [employer] voice recognition software. Though every attempt is made to correct errors during dictation some may still exist. Objective - Vital Signs Vital signs: Vital Signs Temp 98.7 F 09/15/23 07:44 Pulse 76 09/15/23 12:18 Resp 19 09/15/23 08:00 BP 127/84 09/15/23 12:18 Pulse Ox 93 L 09/15/23 07:44 FiO2 Intake & Output 09/14/23 09/15/23 09/15/23 18:59 06:59 18:59 Other: Voiding Method Toilet Toilet # Voids 4 - Labs CBC & Chem 7: 09/14/23 05:45 09/14/23 05:45 Labs: Microbiology - Last 24 Hours (Table) 09/13/23 00:06 Blood Culture - Preliminary Blood
[2023-09-15] MEDS: PREGABALIN 75 MG CAP PO SCH (21:18)
[2023-09-15] MEDS: DULoxetine HCL 60 MG CAPSULE.DR PO SCH (21:18)
[2023-09-15] MEDS: amLODIPine 5 MG TAB PO SCH (21:18)
[2023-09-15] MEDS: ARIPiprazole 2 MG TAB PO SCH (21:18)
[2023-09-15] MEDS: cloNIDine HCL 0.1 MG TAB PO SCH (21:18)
[2023-09-15] MEDS: VORTIOXETINE HYDROBROMIDE 20 MG TABLET PO SCH (21:18)
[2023-09-16] MEDS: MORPHINE SULFATE 4 MG/ML SYRINGE IVP PRN ×2 (00:04→08:42)
[2023-09-16] MEDS: ALPRAZolam 0.25 MG TAB PO PRN (00:04)
[2023-09-16] MEDS: SODIUM CHLORIDE 0.9% 1,000 ML IV SCH ×2 (06:10→16:05)
[2023-09-16 07:27] LABS: HCT 33.5 % (34.0-46.0); MCH 28.6 pg (25.0-35.0); MCHC 32.9 g/dL (31.0-37.0); MCV 86.9 fL (80.0-100.0); Mean Platelet Volume 7.6; Platelet Count 243 k/uL (150-450); RBC 3.85 m/uL (3.80-5.40); RDW 14.8 % (11.5-15.5); WBC 5.4 k/uL (3.8-10.6)
[2023-09-16 08:17] LABS: African American GFR (CKD) >90 (>60 ml/min/1.73 sqM); Anion Gap 9 mmol/L; Blood Urea Nitrogen 10 mg/dL (7-17); Calcium 8.4 mg/dL (8.4-10.2); Carbon Dioxide 24 mmol/L (22-30); Chloride 108 mmol/L (98-107); Glucose 123 mg/dL (74-99); Non-African American GFR(CKD) >90 (>60 ml/min/1.73 sqM); Potassium 3.8 mmol/L (3.5-5.1); Sodium 141 mmol/L (137-145)
[2023-09-16] MEDS: METOPROLOL SUCCINATE (ER) 50 MG TAB.ER.24H PO SCH (08:43)
[2023-09-16 09:15] VITALS: RESP 20; TEMP 97.9
--- NOTE | 2023-09-16 12:20 | P.PN ---
Subjective Progress Note Date: 09/15/23 Principal diagnosis: Reason for follow-up is complicated UTI/pyonephritis Patient is a 48-year-old female with a past medical history definite for hypertension osteoarthritis patient did have a history of complicated UTI with recent admission to the hospital in June 2023 with ESBL E. coli bacteremia secondary coming complicated UTI present to hospital with intractable nausea vomiting fever abnormal UA concerning for pyelonephritis On today's evaluation that is 09/15/2023, the patient remains to be afebrile the patient is breathing comfortably on room air, the patient denies having any chest pain or shortness of breath no nausea no vomiting no abdominal pain no diarrhea, feeling better. Patient did have white count of 4.9 creatinine 0.67 as of yesterday urine culture reported negative blood culture negative Objective - Vital Signs Vital signs: Vital Signs Temp 98.7 F 09/15/23 07:44 Pulse 76 09/15/23 07:44 Resp 19 09/15/23 08:00 BP 87/55 09/15/23 07:44 Pulse Ox 93 L 09/15/23 07:44 FiO2 Intake & Output 09/14/23 09/15/23 09/15/23 18:59 06:59 18:59 Other: Voiding Method Toilet Toilet # Voids 4 - Exam GENERAL DESCRIPTION: Middle-aged female up n bed in no distress RESPIRATORY SYSTEM: Unlabored breathing , decreased breath sounds at bases HEART: S1 S2 regular rate and rhythm , ABDOMEN: Soft , no tenderness EXTREMITIES: No edema feet - Labs CBC & Chem 7: 09/16/23 07:02 09/16/23 07:02 Labs: Microbiology - Last 24 Hours (Table) 09/13/23 00:06 Blood Culture - Preliminary Blood 09/13/23 02:08 Urine Culture - Final Urine,Voided Assessment and Plan (1) Sepsis Current Visit: Yes Status: Acute Code(s): A41.9 - SEPSIS, UNSPECIFIED ORGANISM SNOMED Code(s): 68070019 (2) UTI (urinary tract infection) Current Visit: Yes Status: Acute Code(s): N39.0 - URINARY TRACT INFECTION, S ITE NOT SPECIFIED SNOMED Code(s): 70997492 Plan: 1-patient was in the hospital with sepsis in this patient with fever and tachycardia positive UA source is likely complicated UTI, patient recently did have ESBL E. coli UTI and bacteremia and will need to cover for resistant gram- negative while waiting for the culture to be finalized 2-the patient did have resolution of the fever urine culture reported to be negative blood culture so far pending we will discontinue Invanz and start the patient on Rocephin also request for repeat UA if the patient remains to be afebrile and continued improved finishing therapy with oral Ceftin Dictation was produced using [employer] dictation software. please excuse any grammatical, word or spelling errors. Time with Patient: Less than 30
--- NOTE | 2023-09-16 12:22 | P.PN ---
Subjective Progress Note Date: 09/16/23 Principal diagnosis: Reason for follow-up is complicated UTI/pyonephritis Patient is a 48-year-old female with a past medical history definite for hypertension osteoarthritis patient did have a history of complicated UTI with recent admission to the hospital in June 2023 with ESBL E. coli bacteremia secondary coming complicated UTI present to hospital with intractable nausea vomiting fever abnormal UA concerning for pyelonephritis On today's evaluation that is 09/16/2023, the patient continues to be afebrile the patient is breathing comfortably on room air, the patient denies chest pain or shortness of breath or cough, the patient denies having any nausea no vomiting no abdominal pain no diarrhea, feeling better. And wants to go home Patient did have white count of 5.4 and creatinine 0.71 urine culture reported negative blood culture negative, repeat UA was requested yesterday but not done Objective - Vital Signs Vital signs: Vital Signs Temp 97.9 F 09/16/23 07:46 Pulse 70 09/16/23 07:46 Resp 20 09/16/23 07:46 BP 143/84 09/16/23 07:46 Pulse Ox 95 09/16/23 07:46 FiO2 Intake & Output 09/15/23 09/16/23 09/16/23 18:59 06:59 18:59 Other: Voiding Method Toilet Toilet # Voids 7 3 - Exam GENERAL DESCRIPTION: Middle-aged female up n bed in no distress RESPIRATORY SYSTEM: Unlabored breathing , decreased breath sounds at bases HEART: S1 S2 regular rate and rhythm , ABDOMEN: Soft , no tenderness EXTREMITIES: No edema feet - Labs CBC & Chem 7: 09/16/23 07:02 09/16/23 07:02 Labs: Abnormal Lab Results - Last 24 Hours (Table) 09/16/23 09/16/23 Range/Units 07:02 07:02 Hgb 11.0 L (11.4-16.0) gm/dL Hct 33.5 L (34.0-46.0) % Chloride 108 H (98-107) mmol/L Glucose 123 H (74-99) mg/dL Microbiology - Last 24 Hours (Table) 09/13/23 00:06 Blood Culture - Preliminary Blood Assessment and Plan (1) Sepsis Current Visit: Yes Status: Acute Code(s): A41.9 - SEPSIS, UNSPECIFIED ORGANISM SNOMED Code(s): 75197886 (2) UTI (urinary tract infection) Current Visit: Yes Status: Acute Code(s): N39.0 - URINARY TRACT INFECTION, SITE NOT SPECIFIED SNOMED Code(s): 91892593 Plan: 1-patient was in the hospital with sepsis in this patient with fever and tachycardia positive UA source is likely complicated UTI, patient recently did have ESBL E. coli UTI and bacteremia and will need to cover for resistant gram- negative while waiting for the culture to be finalized 2-the patient did have resolution of the fever urine culture reported to be negative and the blood culture has been negative repeat UA was requested yesterday unfortunately not done patient is on Rocephin if continue to improve to finish therapy with oral Ceftin Dictation was produced using [employer] dictation software. please excuse any grammatical, word or spelling errors. Time with Patient: Less than 30
[2023-09-16 15:38] VITALS: BP 151/84; PULSE 72
[2023-09-16] MEDS: HYDROcodone/APAP 5-325MG 1 EACH TAB PO PRN (16:08)
[2023-09-16 17:23] LABS: Appearance,Urine Clear (Clear); Bacteria,Urine Rare /hpf; Bilirubin,Urine Negative (Negative); Blood,Urine Large (Negative); Budding Yeast,Urine Rare /hpf; Color,Urine Colorless; Glucose,Urine (UA) Trace (Negative); Ketones,Urine Negative (Negative); Leukocyte Esterase,Urine Moderate (Negative); Mucus,Urine Rare /hpf; Nitrite,Urine Negative (Negative); Protein,Urine Negative (Negative); RBC,Urine 52 /hpf (0-5); Squamous Epithelial Cell,Urine 2 /hpf (0-4); Transitional Epi Cells,Urine <1 /hpf (0-1); Urobilinogen,Urine <2.0 mg/dL (<2.0); WBC,Urine 2 /hpf (0-5)
--- NOTE | 2023-09-16 17:34 | P.DS ---
Providers Date of admission: 09/13/23 05:09 Expected date of discharge: 09/16/23 Attending physician: Doyle Crawford MD Consults: 09/13/23 08:03 Consult Physician Routine Consulting Provider: Taye Motley Consult Reason/Comments: UTI Do you want consulting provider notified?: Yes [facility]: Discharge Diagnosis: Pyelonephritis, unrelated to recent surgical procedure Hematuria Nephrolithiasis Acute blood loss anemia Hypertension Class III Obesity SERGIO, resolved Hyponatremia, resolved Sepsis, resolved About acidosis, resolved Hospital Course: Patient is a 48-year-old female with hypertension, GERD, osteoarthritis, and history of prior kidney stones with ESBL pyelonephritis who presented to the hospital with complaints of hematuria, vomiting, and fever. She underwent cystoscopy with laser lithotripsy and stent insertion on 09/06/23. On arrival her labs were remarkable for BUN 27 and creatinine 1.45. There was concerns for possible urinary tract infection which was started on IV antibiotics. Arrangements were made for admission. She was seen by urology and infectious disease. Concern for possible recurrent ESBL in her urine and she was therefore started on ertapenem. Urine culture came back negative as well as blood cultures negative for 24 hours and antibiotics were Deescalated to Rocephin. Follow-up: Dr. Berry next week for stent removal, Dr. Ozuna next week, Ceftin 500 mg PO q 12 hours for an additional 10 days. Patient seen and examined at bedside. Doing well, renatapr is controlling pain well. No other complaints at this time. Opiate start talking from signed. Vital signs reviewed and stable. General: nontoxic, no distress, appears at stated age Cardiovascular: S1S2 reg, no murmur, positive posterior tibial pulse bilateral, Lungs: CTA bilateral, no rhonchi, no rales , no accessory muscle use Neuro: CN II-XI grossly intact, no focal neuro deficits Psych: Alert, oriented, appropriate affect A total of 32 minutes of time were spent preparing this complex discharge summary. Patient was discharged on 09/16/23. This dictation was prepared using [employer] voice recognition software. Though every attempt is made to correct errors during dictation some may still exist. Patient Condition at Discharge: Stable Plan - Discharge Summary Discharge Rx Participant: Yes New Discharge Prescriptions: New HYDROcodone/APAP 5-325MG [Firth 5-325] 1 each PO Q6HR PRN #12 tab PRN Reason: Pain Continue Metoprolol Succinate (ER) [Toprol XL] 150 mg PO BID Zolpidem [Ambien] 10 mg PO HS Vortioxetine Hydrobromide [Trintellix] 20 mg PO HS Pregabalin [Lyrica] 150 mg PO HS ARIPiprazole [Abilify] 2 mg PO HS amLODIPine [Norvasc] 5 mg PO HS cloNIDine HCL [Catapres] 0.1 mg PO HS DULoxetine HCL [Cymbalta] 60 mg PO HS Cyclobenzaprine [Flexeril] 10 mg PO BID PRN PRN Reason: Muscle Spasm Discontinued Ketorolac [Toradol] 10 mg PO Q6HR PRN PRN Reason: Pain Discharge Medication List Metoprolol Succinate (ER) [Toprol XL] 150 mg PO BID 05/07/18 [History] Pregabalin [Lyrica] 150 mg PO HS 04/21/20 [History] Vortioxetine Hydrobromide [Trintellix] 20 mg PO HS 04/21/20 [History] Zolpidem [Ambien] 10 mg PO HS 04/21/20 [History] ARIPiprazole [Abilify] 2 mg PO HS 03/10/21 [History] amLODIPine [Norvasc] 5 mg PO HS 03/10/21 [History] Cyclobenzaprine [Flexeril] 10 mg PO BID PRN 07/09/23 [History] DULoxetine HCL [Cymbalta] 60 mg PO HS 07/09/23 [History] cloNIDine HCL [Catapres] 0.1 mg PO HS 07/09/23 [History] HYDROcodone/APAP 5-325MG [Firth 5-325] 1 each PO Q6HR PRN #12 tab 09/16/23 [Rx] Follow up Appointment(s)/Referral(s): Rosa Stewart MD [Primary Care Provider] - 1-2 days Fam Berry MD [Family Provider] - 1 Week (Cystoscopy with stent removal) Activity/Diet/Wound Care/Special Instructions: Activity: As tolerated Diet: Heart Healthy Special Instructions: Ensure follow with Dr. Berry for stent removal. Discharge Disposition: HOME SELF-CARE
== END 2023-09-16 18:41 | disposition home or self-care (01) | DRG 872 ==
LOC: EC 23:18 → 5NMEDONC 09-13 05:09 → 4SSUR 09-13 16:01
PROVIDERS: ADMIT Internal Medicine; ATTEND Internal Medicine
DX: A41.9 Sepsis, unspecified organism (principal); D62 Acute posthemorrhagic anemia; E87.1 Hypo-osmolality and hyponatremia; E87.20 Acidosis, unspecified; Z68.41 Body mass index [BMI] 40.0-44.9, adult; N12 Tubulo-interstitial nephritis, not specified as acute or chronic; N17.9 Acute kidney failure, unspecified; E66.01 Morbid (severe) obesity due to excess calories; Z20.822 Contact with and (suspected) exposure to COVID-19; F32.A Depression, unspecified; G43.909 Migraine, unspecified, not intractable, without status migrainosus; I10 Essential (primary) hypertension; M19.90 Unspecified osteoarthritis, unspecified site; R31.0 Gross hematuria; Z82.49 Family history of ischemic heart disease and other diseases of the circulatory system; Z86.19 Personal history of other infectious and parasitic diseases; Z87.440 Personal history of urinary (tract) infections; Z90.710 Acquired absence of both cervix and uterus; Z96.652 Presence of left artificial knee joint; Z98.84 Bariatric surgery status; Z90.49 Acquired absence of other specified parts of digestive tract; Z87.01 Personal history of pneumonia (recurrent); Z88.8 Allergy status to other drugs, medicaments and biological substances
CPT/HCPCS: 36415; 74018; 76770; 80048; 80053; 81001; 82150; 83605; 83690; 85025; 85027; 87040; 87086; 87635; 96361; 96365; 96375; 96376

== ENCOUNTER → 2023-12-02 | Outpatient (CLI) | payer MEDICAID ==
--- NOTE | 2023-12-02 12:19 | XR ---
EXAMINATION TYPE: XR KUB DATE OF EXAM: 12/02/2023 11:48 AM CLINICAL INDICATION:Female, 48 years old with history of N20.0; [facility] COMPARISON: 09/13/2023. TECHNIQUE: One radiographic view of the abdomen was obtained. FINDINGS: The bowel gas pattern is nonspecific without dilated loops of small or large bowel. There i s no evidence for organomegaly or pneumoperitoneum. The osseous structures are intact. Bilateral re nal calculi measuring up to 5 mm in the left and 5 mm on the right. Fecal material and gas are demons trated throughout the colon and rectum. IMPRESSION: 1. Bilateral renal calculi. 2. Nonspecific bowel gas pattern without radiographic evidence for acute process.
== END | disposition home or self-care (01) ==
LOC: RADXRMAIN 11:27
PROVIDERS: ATTEND Urology
DX: N20.0 Calculus of kidney (principal)
CPT/HCPCS: 74018

== ENCOUNTER 2023-12-08 04:13 | Emergency (ER) | payer MEDICAID ==
--- NOTE | 2023-12-08 04:17 | ED ---
Abdominal Pain HPI - General Source: RN notes reviewed, old records reviewed Limitations: no limitations - History of Present Illness MD Complaint: abdominal pain, flank pain, other (Dysuria and diarrhea) -: days(s) Location: diffuse, suprapubic Radiation: suprapubic, bilateral flank, back Migration to: suprapubic Severity: moderate Severity scale (1-10): 7 Quality: sharp Consistency: intermittent Improves With: nothing Worsens With: nothing Associated Symptoms: nausea, vomiting, diarrhea Treatments Prior to Arrival: other (0) <Samuel Amezcua - Last Filed: 12/08/23 06:51> <Olu Red - Last Filed: 12/08/23 08:33> - General Stated Complaint: Pain in left flank Time Seen by Provider: 12/08/23 04:16 - History of Present Illness Initial Comments: This is a 48-year-old female to the ER for evaluation. Patient was today for evaluation of severe abdominal pain back pain flank pain nausea vomiting diarrhea dysuria with complex recent medical history. Patient does have severe and persistent diarrhea copious amounts of diarrhea with abdominal pain cramping and is taking antibiotics for both blood-borne as well as urinary tract infection (Samuel Amezcua) - Related Data Home Medications Medication Instructions Recorded Confirmed Metoprolol Succinate (ER) [Toprol 150 mg PO BID 05/07/18 09/13/23 XL] Pregabalin [Lyrica] 150 mg PO HS 04/21/20 09/13/23 Vortioxetine Hydrobromide 20 mg PO HS 04/21/20 09/13/23 [Trintellix] Zolpidem [Ambien] 10 mg PO HS 04/21/20 09/13/23 ARIPiprazole [Abilify] 2 mg PO HS 03/10/21 09/13/23 amLODIPine [Norvasc] 5 mg PO HS 03/10/21 09/13/23 Cyclobenzaprine [Flexeril] 10 mg PO BID PRN 07/09/23 09/13/23 DULoxetine HCL [Cymbalta] 60 mg PO HS 07/09/23 09/13/23 cloNIDine HCL [Catapres] 0.1 mg PO HS 07/09/23 09/13/23 Previous Rx's Medication Instructions Recorded HYDROcodone/APAP 5-325MG [Keymar 1 each PO Q6HR PRN #12 tab 09/16/23 5-325] cefUROXime axetiL [Ceftin] 500 mg PO BID 7 Days #14 tab 09/16/23 Allergies Allergy/AdvReac Type Severity Reaction Status Date / Time ofloxacin [From Floxin] AdvReac Unknown Hallucinati Verified 12/08/23 04:21 ons SAI Inhibitors AdvReac ANGIOEDEMA Verified 12/08/23 04:21 bupropion [From Wellbutrin] AdvReac seizure Verified 12/08/23 04:21 fluoxetine [From Prozac] AdvReac Hallucinati Verified 12/08/23 04:21 ons venlafaxine [From Effexor] AdvReac seizure Verified 12/08/23 04:21 Review of Systems ROS Other: All systems not noted in ROS Statement are negative. <Samuel Amezcua - Last Filed: 12/08/23 06:51> ROS Other: All systems not noted in ROS Statement are negative. <Olu Red - Last Filed: 12/08/23 08:33> ROS Statement: Those systems with pertinent positive or pertinent negative responses have been documented in the HPI. Past Medical History Past Medical History: GERD/Reflux, Hypertension, Osteoarthritis (OA), Pneumonia Additional Past Medical History / Comment(s): kidney stones/septic stone, environmental allergies, pneumonia aug 2021 post-op, herniated discs., occasional tachycardia. ileus History of Any Multi-Drug Resistant Organisms: ESBL Date of last positivie culture/infection: 07/14/23 MDRO Source:: urine Past Surgical History: Adenoidectomy, Bariatric Surgery, Section, Cholecystectomy, Hysterectomy, Joint Replacement, Orthopedic Surgery, Tonsillectomy Additional Past Surgical History / Comment(s): 08/09/23 cystoscopy with L lithotripsy/L stent removed, left knee replacement, arthroscopy right knee ., lap band 16 yrs ago- no fluid in band per pt. surgery at [facility].) 03/23/22 trigger finger , KIDNEY STONE SX, COLONOSCOPY Past Anesthesia/Blood Transfusion Reactions: Postoperative Nausea & Vomiting (PONV) Additional Past Anesthesia/Blood Transfusion Reaction / Comment(s): grandmother- difficulty waking up, slight fever. Past Psychological History: Depression Smoking Status: Never smoker Past Alcohol Use History: None Reported Past Drug Use History: None Reported - Past Family History Mother Family Medical History: Cancer, Hypertension <Samuel Amezcua - Last Filed: 12/08/23 06:51> General Exam General appearance: alert, in no apparent distress Head exam: Present: atraumatic, normocephalic, normal inspection Eye exam: Present: normal appearance, PERRL, EOMI. Absent: scleral icterus, conjunctival injection, periorbital swelling ENT exam: Present: normal exam, mucous membranes moist Neck exam: Present: normal inspection. Absent: tenderness, meningismus, lymphadenopathy Respiratory exam: Present: normal lung sounds bilaterally. Absent: respiratory distress, wheezes, rales, rhonchi, stridor Cardiovascular Exam: Present: regular rate, normal rhythm, normal heart sounds. Absent: systolic murmur, diastolic murmur, rubs, gallop, clicks GI/Abdominal exam: Present: soft, normal bowel sounds. Absent: distended, tende rness, guarding, rebound, rigid Extremities exam: Present: normal inspection, full ROM, normal capillary refill. Absent: tenderness, pedal edema, joint swelling, calf tenderness Back exam: Present: normal inspection Neurological exam: Present: alert, oriented X3, CN II-XII intact Psychiatric exam: Present: normal affect, normal mood Skin exam: Present: warm, dry, intact, normal color. Absent: rash <Samuel Amezcua - Last Filed: 12/08/23 06:51> Course <Samuel Amezcua - Last Filed: 12/08/23 06:51> Vital Signs 12/08/23 12/08/23 12/08/23 04:20 06:18 07:22 Temperature 99 F 98.1 F Pulse Rate 74 60 69 Respiratory 18 16 16 Rate Blood Pressure 141/81 123/79 125/80 O2 Sat by Pulse 98 97 98 Oximetry - Reevaluation(s) Reevaluation #1: 12/08/23 05:01 Medical records reviewed (Samuel Amezcua) Reevaluation #2: 12/08/23 06:51 Patient is showing mild improvement here in the ER (Samuel Amezcua) Reevaluation #4: Was pt. sent in by a medical professional or institution (, PA, GYRO MECHANIC, urgent care, hospital, or alf...) When possible be specific @ -no Did you speak to anyone other than the patient for history (EMS, parent, family, police, friend...)? What history was obtained from this source @ -no Did you review nursing and triage notes (agree or disagree)? Why? @ -agree Are old charts reviewed (outside hosp., previous admission, EMS record, old EKG, old radiological studies, urgent care reports/EKG's, alf records)? Report findings @ -yes Differential Diagnosis (chest pain, altered mental status, abdominal pain women, abdominal pain men, vaginal bleeding, weakness, fever, dyspnea, syncope, headache, dizziness, GI bleed, back pain, seizure, CVA, palpatations, mental health, musculoskeletal)? @ -prior EKG interpreted by me (3pts min.). @ -yes X-rays interpreted by me (1pt min.). @ -yes negative for acute disease CT interpreted by me (1pt min.). @ -no U/S interpreted by me (1pt. min.). @ -no What testing was considered but not performed or refused? (CT, X-rays, U/S, labs)? Why? @ -none What meds were considered but not given or refused? Why? @ -none Did you discuss the management of the patient with other professionals (professionals i.e. DAR Rocha, GYRO MECHANIC, lab, RT, psych nurse, high school social studies tutor, business continuity manager, teacher, traffic officer, block and case maker)? Give summary @ -no Was smoking cessation discussed for >3mins.? @ -no Was critical care preformed (if so, how long)? @ -no Were there social determinants of health that impacted care today? How? (Homelessness, low income, unemployed, alcoholism, drug addiction, transportation, low edu. Level, literacy, decrease access to med. care, nursing home, rehab)? @ -none Was there de-escalation of care discussed even if they declined (Discuss DNR or withdrawal of care, Hospice)? DNR status @ -no What co-morbidities impacted this encounter? (DM, HTN, Smoking, COPD, CAD, Cancer, CVA, ARF, Chemo, Hep., AIDS, mental health diagnosis, sleep apnea, morbid obesity)? @ -none Was patient admitted / discharged? Hospital course, mention meds given and route, prescriptions, significant lab abnormalities, going to OR and other pertinent info. @ - Undiagnosed new problem with uncertain prognosis? @ -no Drug Therapy requiring intensive monitoring for toxicity (Heparin, Nitro, Insulin, Cardizem)? @ -no Were any procedures done? @ -no Diagnosis/symptom? @ - Acute, or Chronic, or Acute on Chronic? @ -Acute Uncomplicated (without systemic symptoms) or Complicated (systemic symptoms)? @ -Complicated Side effects of treatment? @ -no Exacerbation, Progression, or Severe Exacerbation? @ -exacerbation Poses a threat to life or bodily function? How? (Chest pain, [place], [place], pneumonia, PE, COPD, DKA, ARF, appy, cholecystitis, CVA, Diverticulitis, Homicidal, Suicidal, threat to staff... and all critical care pts) @ -yes (Samuel Amezcua) Reevaluation #5: Differential Abdominal Pain Women: Appendicitis, Cholecystitis, diverticulosis, ischemic bowel, pancreatitis, hepatitis, UTI, gastroenteritis, AAA, incarcerated hernia, bowel obstruction, constipation, inflammatory bowel, hepatitis, peptic ulcer disease, splenic infarction, perforated viscus, vulvitis, ovarian torsion, PID, kidney stone, remberto centa abruption, this is not meant to be an all-inclusive list (Samuel Amezcua) Medical Decision Making - Lab Data Result diagrams: 12/08/23 04:58 12/08/23 04:58 <Samuel Amezcua - Last Filed: 12/08/23 06:51> - Lab Data Result diagrams: 12/08/23 04:58 12/08/23 04:58 <Olu Red - Last Filed: 12/08/23 08:33> - Medical Decision Making Patient is a 48-year-old female who presents emergency department complaining of back pain, abdominal pain, diarrhea. Has been on antibiotics for UTI. Was also on antibiotics late last year for bacteremia. Concern was for C. difficile. Patient was signed out to me pending results of C. difficile testing. Results so far show a contaminated urine, labs are unremarkable, as well as CT imaging is interpreted by myself that is unremarkable for acute intra-abdominal process. C. difficile results returned negative. I updated the patient. She is feeling improved. We did discuss her results and I recommend she complete the course of Macrobid. That might be the source of her diarrhea and she will follow-up with her PCP. She can take [id number] antidiarrheal agents. Patient was in agreement this plan. I instructed the patient to follow up with their PCP in the next 1-3 days. I explained that the patient should return to the emergency department if they experience any worsening symptoms. Strict return precautions were discussed with the patient. The patient expressed understanding of these instructions. I answered all questions that the patient had. The patient was discharged home in good condition with their prescriptions and follow up information. Diagnosis/symptom? @ -Diarrhea, abdominal pain of unknown etiology, Acute, or Chronic, or Acute on Chronic? @ -Acute Uncomplicated (without systemic symptoms) or Complicated (systemic symptoms)? @ -Complicated Side effects of treatment? @ -None Exacerbation, Progression, or Severe Exacerbation] @ -No Poses a threat to life or bodily function? @ -Unlikely (Olu Red) - Lab Data Lab Results 12/08/23 12/08/23 12/08/23 Range/Units 04:58 04:58 04:58 WBC 8.7 (3.8-10.6) k/uL RBC 4.60 (3.80-5.40) m/uL Hgb 11.8 (11.4-16.0) gm/dL Hct 37.9 (34.0-46.0) % MCV 82.3 (80.0-100.0) fL MCH 25.7 (25.0-35.0) pg MCHC 31.3 (31.0-37.0) g/dL RDW 15.0 (11.5-15.5) % Plt Count 284 (150-450) k/uL MPV 8.3 Neutrophils % 64 % Lymphocytes % 26 % Monocytes % 6 % Eosinophils % 2 % Basophils % 1 % Neutrophils # 5.5 (1.3-7.7) k/uL Lymphocytes # 2.3 (1.0-4.8) k/uL Monocytes # 0.5 (0-1.0) k/uL Eosinophils # 0.1 (0-0.7) k/uL Basophils # 0.1 (0-0.2) k/uL Sodium (137-145) mmol/L Potassium (3.5-5.1) mmol/L Chloride (98-107) mmol/L Carbon Dioxide (22-30) mmol/L Anion Gap mmol/L BUN (7-17) mg/dL Creatinine (0.52-1.04) mg/dL Est GFR (CKD-EPI)AfAm (>60 ml/min/1.73 sqM) Est GFR (CKD-EPI)NonAf (>60 ml/min/1.73 sqM) Glucose (74-99) mg/dL Plasma Lactic Acid Pietro (0.7-2.0) mmol/L Calcium (8.4-10.2) mg/dL Phosphorus (2.5-4.5) mg/dL Magnesium (1.6-2.3) mg/dL Total Bilirubin (0.2-1.3) mg/dL AST (14-36) U/L ALT (4-34) U/L Alkaline Phosphatase (38-126) U/L Total Protein (6.3-8.2) g/dL Albumin (3.5-5.0) g/dL Amylase (30-110) U/L Lipase (23-300) U/L Urine Color Yellow Urine Appearance Cloudy H (Clear) Urine pH 6.0 (5.0-8.0) Ur Specific Garland 1.025 (1.001-1.035) Urine Protein Trace H (Negative) Urine Glucose (UA) Negative (Negative) Urine Ketones Negative (Negative) Urine Blood Trace H (Negative) Urine Nitrite Negative (Negative) Urine Bilirubin Negative (Negative) Urine Urobilinogen 2.0 (<2.0) mg/dL Ur Leukocyte Esterase Small H (Negative) Urine RBC 12 H (0-5) /hpf Urine WBC 26 H (0-5) /hpf Ur Squamous Epith Cells 6 H (0-4) /hpf Calcium Oxalate Crystal Moderate H (None) /hpf Hyaline Casts 10 H (0-2) /lpf Urine Mucus Many H (None) /hpf Urine HCG, Qual Not Detected (Not Detectd) C. difficile (EIA) Intrp (Negative) 12/08/23 12/08/23 12/08/23 Range/Units 04:58 04:58 05:02 WBC (3.8-10.6) k/uL RBC (3.80-5.40) m/uL Hgb (11.4-16.0) gm/dL Hct (34.0-46.0) % MCV (80.0-100.0) fL MCH (25.0-35.0) pg MCHC (31.0-37.0) g/dL RDW (11.5-15.5) % Plt Count (150-450) k/uL MPV Neutrophils % % Lymphocytes % % Monocytes % % Eosinophils % % Basophils % % Neutrophils # (1.3-7.7) k/uL Lymphocytes # (1.0-4.8) k/uL Monocytes # (0-1.0) k/uL Eosinophils # (0-0.7) k/uL Basophils # (0-0.2) k/uL Sodium 139 (137-145) mmol/L Potassium 4.4 (3.5-5.1) mmol/L Chloride 107 (98-107) mmol/L Carbon Dioxide 21 L (22-30) mmol/L Anion Gap 11 mmol/L BUN 12 (7-17) mg/dL Creatinine 0.58 (0.52-1.04) mg/dL Est GFR (CKD-EPI)AfAm >90 (>60 ml/min/1.73 sqM) Est GFR (CKD-EPI)NonAf >90 (>60 ml/min/1.73 sqM) Glucose 81 (74-99) mg/dL Plasma Lactic Acid Pietro 1.8 (0.7-2.0) mmol/L Calcium 9.2 (8.4-10.2) mg/dL Phosphorus 3.5 (2.5-4.5) mg/dL Magnesium 2.1 (1.6-2.3) mg/dL Total Bilirubin 0.7 (0.2-1.3) mg/dL AST 43 H (14-36) U/L ALT 29 (4-34) U/L Alkaline Phosphatase 106 (38-126) U/L Total Protein 7.2 (6.3-8.2) g/dL Albumin 4.3 (3.5-5.0) g/dL Amylase 53 (30-110) U/L Lipase 108 (23-300) U/L Urine Color Urine Appearance (Clear) Urine pH (5.0-8.0) Ur Specific Garland (1.001-1.035) Urine Protein (Negative) Urine Glucose (UA) (Negative) Urine Ketones (Negative) Urine Blood (Negative) Urine Nitrite (Negative) Urine Bilirubin (Negative) Urine Urobilinogen (<2.0) mg/dL Ur Leukocyte Esterase (Negative) Urine RBC (0-5) /hpf Urine WBC (0-5) /hpf Ur Squamous Epith Cells (0-4) /hpf Calcium Oxalate Crystal (None) /hpf Hyaline Casts (0-2) /lpf Urine Mucus (None) /hpf Urine HCG, Qual (Not Detectd) C. difficile (EIA) Intrp (Negative) 12/08/23 Range/Units 06:34 WBC (3.8-10.6) k/uL RBC (3.80-5.40) m/uL Hgb (11.4-16.0) gm/dL Hct (34.0-46.0) % MCV (80.0-100.0) fL MCH (25.0-35.0) pg MCHC (31.0-37.0) g/dL RDW (11.5-15.5) % Plt Count (150-450) k/uL MPV Neutrophils % % Lymphocytes % % Monocytes % % Eosinophils % % Basophils % % Neutrophils # (1.3-7.7) k/uL Lymphocytes # (1.0-4.8) k/uL Monocytes # (0-1.0) k/uL Eosinophils # (0-0.7) k/uL Basophils # (0-0.2) k/uL Sodium (137-145) mmol/L Potassium (3.5-5.1) mmol/L Chloride (98-107) mmol/L Carbon Dioxide (22-30) mmol/L Anion Gap mmol/L BUN (7-17) mg/dL Creatinine (0.52-1.04) mg/dL Est GFR (CKD-EPI)AfAm (>60 ml/min/1.73 sqM) Est GFR (CKD-EPI)NonAf (>60 ml/min/1.73 sqM) Glucose (74-99) mg/dL Plasma Lactic Acid Pietro (0.7-2.0) mmol/L Calcium (8.4-10.2) mg/dL Phosphorus (2.5-4.5) mg/dL Magnesium (1.6-2.3) mg/dL Total Bilirubin (0.2-1.3) mg/dL AST (14-36) U/L ALT (4-34) U/L Alkaline Phosphatase (38-126) U/L Total Protein (6.3-8.2) g/dL Albumin (3.5-5.0) g/dL Amylase (30-110) U/L Lipase (23-300) U/L Urine Color Urine Appearance (Clear) Urine pH (5.0-8.0) Ur Specific Garland (1.001-1.035) Urine Protein (Negative) Urine Glucose (UA) (Negative) Urine Ketones (Negative) Urine Blood (Negative) Urine Nitrite (Negative) Urine Bilirubin (Negative) Urine Urobilinogen (<2.0) mg/dL Ur Leukocyte Esterase (Negative) Urine RBC (0-5) /hpf Urine WBC (0-5) /hpf Ur Squamous Epith Cells (0-4) /hpf Calcium Oxalate Crystal (None) /hpf Hyaline Casts (0-2) /lpf Urine Mucus (None) /hpf Urine HCG, Qual (Not Detectd) C. difficile (EIA) Intrp Negative (Negative) Disposition <Samuel Amezcua - Last Filed: 12/08/23 06:51> Is patient prescribed a controlled substance at d/c from ED?: No Time of Disposition: 08:25 <Olu Red - Last Filed: 12/08/23 08:33> Clinical Impression: Abdominal pain of unknown etiology, Diarrhea Disposition: HOME SELF-CARE Condition: Good Instructions (If sedation given, give patient instructions): Abdominal Pain (ED) Referrals: Rosa Stewart MD [Primary Care Provider] - 1-2 days
[2023-12-08 05:11] LABS: Basophils # (A) 0.1 k/uL (0-0.2); Basophils % (A) 1 %; Eosinophils # (A) 0.1 k/uL (0-0.7); Eosinophils % (A) 2 %; HCT 37.9 % (34.0-46.0); HGB 11.8 gm/dL (11.4-16.0); Lymphocytes # (A) 2.3 k/uL (1.0-4.8); Lymphocytes % (A) 26 %; MCH 25.7 pg (25.0-35.0); MCHC 31.3 g/dL (31.0-37.0); MCV 82.3 fL (80.0-100.0); Mean Platelet Volume 8.3; Monocytes # (A) 0.5 k/uL (0-1.0); Monocytes % (A) 6 %; Neutrophils # (A) 5.5 k/uL (1.3-7.7); Neutrophils % (A) 64 %; Platelet Count 284 k/uL (150-450); WBC 8.7 k/uL (3.8-10.6)
[2023-12-08] MEDS: KETOROLAC 15 MG/ML 1 ML VIAL IVP STA (05:14)
[2023-12-08] MEDS: SODIUM CHLORIDE 0.9% 1,000 ML IV STA ×2 (05:14)
[2023-12-08] MEDS: MORPHINE SULFATE 4 MG/ML SYRINGE IV STA (05:16)
[2023-12-08] MEDS: ONDANSETRON 4 MG/2 ML VIAL IVP STA (05:17)
[2023-12-08 05:26] LABS: ALT 29 U/L (4-34); African American GFR (CKD) >90 (>60 ml/min/1.73 sqM); Amylase 53 U/L (30-110); Anion Gap 11 mmol/L; Blood Urea Nitrogen 12 mg/dL (7-17); Calcium 9.2 mg/dL (8.4-10.2); Carbon Dioxide 21 mmol/L (22-30); Chloride 107 mmol/L (98-107); Glucose 81 mg/dL (74-99); Lipase 108 U/L (23-300); Non-African American GFR(CKD) >90 (>60 ml/min/1.73 sqM); Sodium 139 mmol/L (137-145)
[2023-12-08 05:34] LABS: AST 43 U/L (14-36); Albumin 4.3 g/dL (3.5-5.0); Alkaline Phosphatase 106 U/L (38-126); Potassium 4.4 mmol/L (3.5-5.1); Total Bilirubin 0.7 mg/dL (0.2-1.3); Total Protein 7.2 g/dL (6.3-8.2)
[2023-12-08 05:38] LABS: Appearance,Urine Cloudy (Clear); Bilirubin,Urine Negative (Negative); Blood,Urine Trace (Negative); Calcium Oxalate Crystals,Urine Moderate /hpf; Color,Urine Yellow; Glucose,Urine (UA) Negative (Negative); Hyaline Casts,Urine 10 /lpf (0-2); Ketones,Urine Negative (Negative); Leukocyte Esterase,Urine Small (Negative); Mucus,Urine Many /hpf; Nitrite,Urine Negative (Negative); Protein,Urine Trace (Negative); RBC,Urine 12 /hpf (0-5); Specific Gravity,Urine 1.025 (1.001-1.035); Squamous Epithelial Cell,Urine 6 /hpf (0-4); WBC,Urine 26 /hpf (0-5)
[2023-12-08 05:53] LABS: Magnesium 2.1 mg/dL (1.6-2.3); Phosphorus 3.5 mg/dL (2.5-4.5)
--- NOTE | 2023-12-08 06:03 | CT ---
EXAMINATION TYPE: CT abdomen pelvis wo con DATE OF EXAM: 12/08/2023 HISTORY: flank pain x 1 day, has had uti for 2 weeks. hx of multiple kidney stones with stent, cholec ystectomy and gastric sleeve CT DLP: 1564.4 mGycm. Automated Exposure Control for Dose Reduction was Utilized. TECHNIQUE: CT scan of the abdomen and pelvis is performed without oral or IV contrast. COMPARISON: Most recent prior CT July 13, 2023 FINDINGS: Within the limitations of a non-contrast study, the following observations are made. LUNG BASES: No significant abnormality is appreciated. LIVER/GB: Cholecystectomy clips are redemonstrated. PANCREAS: No significant abnormality is seen. SPLEEN: No significant abnormality is seen. ADRENALS: No significant abnormality is seen. KIDNEYS: Several nonobstructing calculi bilaterally greatest at lower pole level in both kidneys on c urrent study. Approximately 6 left renal calculi measuring up to 7 mm long axis sagittal image 104. T here are 2 right renal calculi measuring up to 7 mm in size axial image 79 on current study. Some pro minence of the right renal pelvis without calyceal dilatation. No left-sided hydronephrosis. No obstr ucting ureteric calculi are seen bilaterally. No intraluminal calculi in the poorly distended urinary bladder. New roughly 8 mm calcification between the superior aspect of the posterior bladder and the vaginal cuff axial image 144. BOWEL: Interval removal of lap band with surgical changes from gastric sleeve procedure now identifie d. No abnormal small or large bowel dilatation. GENITAL ORGANS: Uterus is surgically absent similar to prior.. LYMPH NODES: No greater than 1cm abdominal or pelvic lymph nodes are appreciated. OSSEOUS STRUCTURES: Mild disc space narrowing with vacuum disc phenomenon at L5-S1 level. OTHER: No significant additional abnormality is seen. IMPRESSION: Nonobstructing bilateral nephrolithiasis redemonstrated. No hydronephrosis obstructing ur eter calculi seen bilaterally on current study. No suspicious new or acute finding seen on noncontras t CT to account for patient's symptoms.
[2023-12-08 06:31] VITALS: RESP 16
[2023-12-08 07:43] VITALS: TEMP 98.1
[2023-12-08 08:56] VITALS: BP 120/78; PULSE 80
== END 2023-12-08 08:42 | disposition home or self-care (01) ==
LOC: EC 04:13
DX: R10.9 Unspecified abdominal pain (principal); R19.7 Diarrhea, unspecified; Z88.8 Allergy status to other drugs, medicaments and biological substances
CPT/HCPCS: 36415; 80053; 82150; 83605; 83690; 83735; 84100; 85025; 81001; 81025; 87040; 87324; 74176; 99285; 96374; 96375 ×2; 96361 ×2; J2270; J2405; J1885

== ENCOUNTER 2023-12-18 13:27 | Emergency (ER) | payer MEDICAID ==
--- NOTE | 2023-12-18 14:13 | ED ---
Arrhythmia/Palpitations HPI - General Chief Complaint: Arrhythmia/Palpitations Stated Complaint: palpitations Time Seen by Provider: 12/18/23 13:49 Source: patient, RN notes reviewed Mode of arrival: wheelchair Limitations: no limitations - History of Present Illness Initial Comments: 48-year-old female presents emergency department chief complaint of tachycardia. Patient states she has a history of tachycardia which she takes metoprolol 150 twice daily. She sees cardiology out of [facility]. Patient states that she has been admitted in the past for persistent tachycardia and was placed on IV metoprolol. Patient states that she was eating lunch today sitting down when she started feeling her heart racing she looked at her watch her heart rate was in the 130s. States it is worse when she ambulates. She has no history of DVT or PEs she denies any recent traveling but states that she did have surgery few months ago for gastric sleeve. Patient denies any leg pain or leg swelling patient offers no other associated symptoms. Denies fever. - Related Data Home Medications Medication Instructions Recorded Confirmed Metoprolol Succinate (ER) [Toprol 150 mg PO BID 05/07/18 12/18/23 XL] Pregabalin [Lyrica] 150 mg PO HS 04/21/20 12/18/23 Vortioxetine Hydrobromide 20 mg PO HS 04/21/20 12/18/23 [Trintellix] Zolpidem [Ambien] 10 mg PO HS 04/21/20 12/18/23 ARIPiprazole [Abilify] 2 mg PO HS 03/10/21 12/18/23 amLODIPine [Norvasc] 5 mg PO HS 03/10/21 12/18/23 Cyclobenzaprine [Flexeril] 10 mg PO BID PRN 07/09/23 12/18/23 DULoxetine HCL [Cymbalta] 60 mg PO HS 07/09/23 12/18/23 cloNIDine HCL [Catapres] 0.1 mg PO HS 07/09/23 12/18/23 Ondansetron Odt [Zofran Odt] 4 mg PO DAILY PRN 12/18/23 12/18/23 Allergies Allergy/AdvReac Type Severity Reaction Status Date / Time ofloxacin [From Floxin] AdvReac Unknown Hallucinati Verified 12/18/23 14:58 ons SAI Inhibitors AdvReac ANGIOEDEMA Verified 12/18/23 14:58 bupropion [From Wellbutrin] AdvReac seizure Verified 12/18/23 14:58 fluoxetine [From Prozac] AdvReac Hallucinati Verified 12/18/23 14:58 ons venlafaxine [From Effexor] AdvReac seizure Verified 12/18/23 14:58 Review of Systems ROS Statement: Those systems with pertinent positive or pertinent negative responses have been documented in the HPI. ROS Other: All systems not noted in ROS Statement are negative. Past Medical History Past Medical History: GERD/Reflux, Hypertension, Osteoarthritis (OA), Pneumonia Additional Past Medical History / Comment(s): kidney stones/septic stone, environmental allergies, pneumonia aug 2021 post-op, herniated discs., occasional tachycardia. ileus History of Any Multi-Drug Resistant Organisms: ESBL Date of last positivie culture/infection: 07/14/23 MDRO Source:: urine Past Surgical History: Adenoidectomy, Bariatric Surgery, Section, Cholecystectomy, Hysterectomy, Joint Replacement, Orthopedic Surgery, Tonsillectomy Additional Past Surgical History / Comment(s): 08/09/23 cystoscopy with L lithotripsy/L stent removed, left knee replacement, arthroscopy right knee ., lap band 16 yrs ago- no fluid in band per pt. surgery at [facility].) 03/23/22 trigger finger , KIDNEY STONE SX, COLONOSCOPY. gastric sleeve 10/11 Past Anesthesia/Blood Transfusion Reactions: Postoperative Nausea & Vomiting (PONV) Additional Past Anesthesia/Blood Transfusion Reaction / Comment(s): grandmother- difficulty waking up, slight fever. Past Psychological History: Depression Smoking Status: Never smoker Past Alcohol Use History: None Reported Past Drug Use History: None Reported - Past Family History Mother Family Medical History: Cancer, Hypertension General Exam Limitations: no limitations General appearance: alert, in no apparent distress Head exam: Present: atraumatic, normocephalic, normal inspection Eye exam: Present: normal appearance, PERRL, EOMI. Absent: scleral icterus, conjunctival injection, periorbital swelling ENT exam: Present: normal exam, mucous membranes moist Neck exam: Present: normal inspection, full ROM. Absent: tenderness, meningismus, lymphadenopathy Respiratory exam: Present: normal lung sounds bilaterally. Absent: respiratory distress, wheezes, rales, rhonchi, stridor Cardiovascular Exam: Present: normal rhythm, tachycardia, normal heart sounds. Absent: systolic murmur, diastolic murmur, rubs, gallop, clicks GI/Abdominal exam: Present: soft, normal bowel sounds. Absent: distended, tenderness, guarding, rebound, rigid Course Vital Signs 12/18/23 12/18/23 12/18/23 13:30 14:36 15:43 Temperature 98.1 F Pulse Rate 131 H 116 H 117 H Respiratory 18 18 16 Rate Blood Pressure 152/85 107/82 136/86 O2 Sat by Pulse 100 95 96 Oximetry 12/18/23 16:44 Temperature Pulse Rate 105 H Respiratory 18 Rate Blood Pressure 141/87 O2 Sat by Pulse 100 Oximetry EKG Findings - EKG Comments: EKG Findings:: EKG performed at 13: 44 sinus tachycardia rate of 123 CO 157 QRS 94 QT/QTc 325/398 - EKG Results: EKG: interpreted by KIERSTEN Medical Decision Making - Medical Decision Making Was pt. sent in by a medical professional or institution (, PA, CAT OPERATOR, urgent care, hospital, or fpc...) When possible be specific @ -No Did you speak to anyone other than the patient for history (EMS, parent, family, police, friend...)? What history was obtained from this source @ -No Did you review nursing and triage notes (agree or disagree)? Why? @ -I reviewed and agree with nursing and triage notes Were old charts reviewed (outside hosp., previous admission, EMS record, old EKG, old radiological studies, urgent care reports/EKG's, fpc records)? Report findings @ -[Reviewed prior laboratory findings Differential Diagnosis (chest pain, altered mental status, abdominal pain women, abdominal pain men, vaginal bleeding, weakness, fever, dyspnea, syncope, headache, dizziness, GI bleed, back pain, seizure, CVA, palpatations, mental health, musculoskeletal)? @ -Differential Palpitations Ventricular arrhythmias, atrial arrhythmias, myocardial infarction, anemia, thyrotoxicosis, electrolyte imbalance, hypokalemia, pulmonary embolism, pulmonary disease, drugs, alcohol, anxiety, stress.... This is not meant to be an all-inclusive list. EKG interpreted by me (3pts min.). @ -As above X-rays interpreted by me (1pt min.). @ -Chest x-ray shows no acute cardiopulmonary process. CT interpreted by me (1pt min.). @ -None done U/S interpreted by me (1pt. min.). @ -None done What testing was considered but not performed or refused? (CT, X-rays, U/S, labs)? Why? @ -None What meds were considered but not given or refused? Why? @ -None Did you discuss the management of the patient with other professionals (professionals i.e. DrMitul, PA, CAT OPERATOR, lab, RT, psych nurse, social director, breading machine tender, teacher, data officer, gearcase assembler)? Give summary @ -No Was smoking cessation discussed for >3mins.? @ -No Was critical care preformed (if so, how long)? @ -No Were there social determinants of health that impacted care today? How? (Homelessness, low income, unemployed, alcoholism, drug addiction, trans portation, low edu. Level, literacy, decrease access to med. care, fpc, rehab)? @ -No Was there de-escalation of care discussed even if they declined (Discuss DNR or withdrawal of care, Hospice)? DNR status @ -No What co-morbidities impacted this encounter? (DM, HTN, Smoking, COPD, CAD, Cancer, CVA, ARF, Chemo, Hep., AIDS, mental health diagnosis, sleep apnea, morbid obesity)? @ -Tachycardia, gastric sleeve surgery Was patient admitted / discharged? Hospital course, mention meds given and route , prescriptions, significant lab abnormalities, going to OR and other pertinent info. @ -Discharged patient symptoms are improved after IV fluids, patient does have mild hypokalemia and was given replacement. Patient feels comfortable with discharge and having close follow-up. Undiagnosed new problem with uncertain prognosis? @ -No Drug Therapy requiring intensive monitoring for toxicity (Heparin, Nitro, Insulin, Cardizem)? @ -No Were any procedures done? @ -No Diagnosis/symptom? @ -Tachycardia, dehydration, hypokalemia Acute, or Chronic, or Acute on Chronic? @ -Acute Uncomplicated (without systemic symptoms) or Complicated (systemic symptoms)? @ -Complicated Side effects of treatment? @ -No Exacerbation, Progression, or Severe Exacerbation? @ -No Poses a threat to life or bodily function? How? (Chest pain, USA, PA, pneumonia, PE, COPD, DKA, ARF, appy, cholecystitis, CVA, Diverticulitis, Homicidal, Suicidal, threat to staff... and all critical care pts) @ -No - Lab Data Result diagrams: 12/18/23 14:07 12/18/23 14:07 Lab Results 12/18/23 12/18/23 12/18/23 Range/Units 14:07 14:07 14:07 WBC 9.0 (3.8-10.6) k/uL RBC 4.44 (3.80-5.40) m/uL Hgb 11.5 (11.4-16.0) gm/dL Hct 36.8 (34.0-46.0) % MCV 83.0 (80.0-100.0) fL MCH 25.9 (25.0-35.0) pg MCHC 31.2 (31.0-37.0) g/dL RDW 15.5 (11.5-15.5) % Plt Count 248 (150-450) k/uL MPV 8.5 Neutrophils % 70 % Lymphocytes % 18 % Monocytes % 6 % Eosinophils % 4 % Basophils % 1 % Neutrophils # 6.3 (1.3-7.7) k/uL Lymphocytes # 1.7 (1.0-4.8) k/uL Monocytes # 0.5 (0-1.0) k/uL Eosinophils # 0.4 (0-0.7) k/uL Basophils # 0.0 (0-0.2) k/uL PT 9.6 L (10.0-12.5) sec INR 0.8 (<1.2) APTT 23.6 (22.0-30.0) sec D-Dimer 0.30 (<0.60) mg/L FEU Sodium 139 (137-145) mmol/L Potassium 3.0 L (3.5-5.1) mmol/L Chloride 108 H (98-107) mmol/L Carbon Dioxide 18 L (22-30) mmol/L Anion Gap 13 mmol/L BUN 9 (7-17) mg/dL Creatinine 0.63 (0.52-1.04) mg/dL Est GFR (CKD-EPI)AfAm >90 (>60 ml/min/1.73 sqM) Est GFR (CKD-EPI)NonAf >90 (>60 ml/min/1.73 sqM) Glucose 225 H (74-99) mg/dL Calcium 9.1 (8.4-10.2) mg/dL Magnesium 1.7 (1.6-2.3) mg/dL Total Bilirubin 0.2 (0.2-1.3) mg/dL AST 20 (14-36) U/L ALT 25 (4-34) U/L Alkaline Phosphatase 159 H (38-126) U/L Troponin I (0.000-0.034) ng/mL Total Protein 6.6 (6.3-8.2) g/dL Albumin 4.0 (3.5-5.0) g/dL 12/18/23 Range/Units 14:07 WBC (3.8-10.6) k/uL RBC (3.80-5.40) m/uL Hgb (11.4-16.0) gm/dL Hct (34.0-46.0) % MCV (80.0-100.0) fL MCH (25.0-35.0) pg MCHC (31.0-37.0) g/dL RDW (11.5-15.5) % Plt Count (150-450) k/uL MPV Neutrophils % % Lymphocytes % % Monocytes % % Eosinophils % % Basophils % % Neutrophils # (1.3-7.7) k/uL Lymphocytes # (1.0-4.8) k/uL Monocytes # (0-1.0) k/uL Eosinophils # (0-0.7) k/uL Basophils # (0-0.2) k/uL PT (10.0-12.5) sec INR (<1.2) APTT (22.0-30.0) sec D-Dimer (<0.60) mg/L FEU Sodium (137-145) mmol/L Potassium (3.5-5.1) mmol/L Chloride (98-107) mmol/L Carbon Dioxide (22-30) mmol/L Anion Gap mmol/L BUN (7-17) mg/dL Creatinine (0.52-1.04) mg/dL Est GFR (CKD-EPI)AfAm (>60 ml/min/1.73 sqM) Est GFR (CKD-EPI)NonAf (>60 ml/min/1.73 sqM) Glucose (74-99) mg/dL Calcium (8.4-10.2) mg/dL Magnesium (1.6-2.3) mg/dL Total Bilirubin (0.2-1.3) mg/dL AST (14-36) U/L ALT (4-34) U/L Alkaline Phosphatase (38-126) U/L Troponin I <0.012 (0.000-0.034) ng/mL Total Protein (6.3-8.2) g/dL Albumin (3.5-5.0) g/dL Disposition Clinical Impression: Tachycardia, Hypokalemia, Dehydration Disposition: HOME SELF-CARE Condition: Stable Instructions (If sedation given, give patient instructions): Heart Palpitations (ED) Additional Instructions: Please return the emergency department for any worsening symptoms or any other concerns Is patient prescribed a controlled substance at d/c from ED?: No Referrals: Rosa Stewart MD [Primary Care Provider] - 1-2 days Time of Disposition: 16:36
[2023-12-18 14:17] LABS: Basophils % (A) 1 %; Eosinophils # (A) 0.4 k/uL (0-0.7); Eosinophils % (A) 4 %; HCT 36.8 % (34.0-46.0); HGB 11.5 gm/dL (11.4-16.0); Lymphocytes # (A) 1.7 k/uL (1.0-4.8); Lymphocytes % (A) 18 %; MCH 25.9 pg (25.0-35.0); MCHC 31.2 g/dL (31.0-37.0); Mean Platelet Volume 8.5; Monocytes # (A) 0.5 k/uL (0-1.0); Monocytes % (A) 6 %; Neutrophils # (A) 6.3 k/uL (1.3-7.7); Neutrophils % (A) 70 %; Platelet Count 248 k/uL (150-450); RBC 4.44 m/uL (3.80-5.40); RDW 15.5 % (11.5-15.5)
--- NOTE | 2023-12-18 14:25 | XR ---
EXAMINATION TYPE: XR chest 2V DATE OF EXAM: 12/18/2023 COMPARISON: 07/09/2023 HISTORY: Shortness of breath TECHNIQUE: Frontal and lateral views of the chest are obtained. FINDINGS: Scattered senescent parenchymal changes noted. Hyperinflation compatible with COPD. No evidence for infiltrate. No evidence for atelectasis. Heart size is stable. Mediastinal structures are stable and grossly unremarkable. No evidence for hilar prominence. Degenerative changes dorsal spine. IMPRESSION: 1. No evidence for acute pulmonary disease.
[2023-12-18 14:29] LABS: INR 0.8 (<1.2); Partial Thromboplastin Time 23.6 sec (22.0-30.0); Prothrombin Time 9.6 sec (10.0-12.5)
[2023-12-18] MEDS: SODIUM CHLORIDE 0.9% 1,000 ML IV STA (14:31)
[2023-12-18] MEDS: SODIUM CHLORIDE 0.9% 500 ML 500 ML IV STA (14:31)
[2023-12-18 14:58] VITALS: TEMP 98.1
[2023-12-18 15:04] LABS: ALT 25 U/L (4-34); AST 20 U/L (14-36); African American GFR (CKD) >90 (>60 ml/min/1.73 sqM); Alkaline Phosphatase 159 U/L (38-126); Anion Gap 13 mmol/L; Blood Urea Nitrogen 9 mg/dL (7-17); Calcium 9.1 mg/dL (8.4-10.2); Carbon Dioxide 18 mmol/L (22-30); Chloride 108 mmol/L (98-107); Glucose 225 mg/dL (74-99); Magnesium 1.7 mg/dL (1.6-2.3); Non-African American GFR(CKD) >90 (>60 ml/min/1.73 sqM); Sodium 139 mmol/L (137-145); Total Bilirubin 0.2 mg/dL (0.2-1.3); Total Protein 6.6 g/dL (6.3-8.2)
[2023-12-18] MEDS: POTASSIUM BICARBONATE/CIT AC 20 MEQ TABLET.EFF PO ONE (15:41)
[2023-12-18 17:07] VITALS: BP 141/87; PULSE 105; RESP 18
== END 2023-12-18 16:48 | disposition home or self-care (01) ==
LOC: EC 13:27
DX: E87.6 Hypokalemia (principal); E86.0 Dehydration; R00.0 Tachycardia, unspecified
CPT/HCPCS: 36415; 71046; 80053; 83735; 84484; 85025; 85379; 85610; 85730; 93005; 96360; 99285

== ENCOUNTER → 2024-01-15 | Outpatient (CLI) | payer MEDICAID ==
--- NOTE | 2024-01-15 11:33 | XR ---
EXAMINATION TYPE: XR KUB DATE OF EXAM: 01/15/2024 COMPARISON: 12/02/2023 INDICATION: Renal stones TECHNIQUE: Single view abdomen FINDINGS: There is a normal bowel gas pattern. Psoas margins are normal. No organomegaly is present. Largest calcification on the right measures 0.9 cm. Largest calcification on the left measures 0.5 cm . Additional smaller renal calcifications are present on the right. No suspicious ureteral stones abiola dent. Calcifications are present previously. On the right this has increased in size. IMPRESSION: 1. Bilateral renal stones
== END | disposition home or self-care (01) ==
LOC: RADXRMAIN 10:53
PROVIDERS: ATTEND Urology
DX: N20.0 Calculus of kidney (principal)
CPT/HCPCS: 74018

== ENCOUNTER → 2024-01-15 | Outpatient (CLI) | payer MEDICAID ==
--- NOTE | 2024-01-17 14:22 | MM ---
Reason for Exam: Screening (asymptomatic). Last mammogram was performed 10 year(s) and 0 month(s) ago. Patient History: Menarche at age 11. First Full-Term at age 28. Late child-bearing (after 28). Hysterectomy at age 36. Mother had breast cancer, age 62. Risk Values: Sadia 5 year model risk: 2.0%. NCI Lifetime model risk: 17.3%. Prior Study Comparison: 12/31/2013 Bilateral Screening Mammogram, [facility]. Tissue Density: There are scattered areas of fibroglandular density. Findings: Analyzed By CAD. Right breast: There is no suspicious group of microcalcifications or new suspicious mass. Left breast: There is no suspicious group of microcalcifications or new suspicious mass. Overall Assessment: Negative, BI-RAD 1 Management: Screening Mammogram of both breasts in [address] [facility] will attempt to contact patient to return for supplemental views and ultrasound if indicated. Patient should continue monthly self-breast exams. A clinical breast exam by your physician is recommended on an annual basis. This exam should not preclude additional follow-up of suspicious palpable abnormalities. Note on Sadia scores and lifetime risk: 1. A Sadia score greater than 3% is considered moderate risk. If this is the case, consider specialist referral to assess eligibility for a risk reducing agent. 2. If overall lifetime risk for the development of breast cancer is 20% or higher, the patient may qualify for future screening with alternating mammogram and breast MRI. Electronically signed and approved by: Sher Lundy DO
== END | disposition home or self-care (01) ==
LOC: RADMAMWWP 12:54
PROVIDERS: ATTEND Obstetrics & Gynecology
DX: Z12.31 Encounter for screening mammogram for malignant neoplasm of breast (principal); Z80.3 Family history of malignant neoplasm of breast
CPT/HCPCS: 77063; 77067

== ENCOUNTER → 2024-01-15 | Outpatient (CLI) | payer MEDICAID ==
[2024-01-15 22:28] LABS: Basophils # (A) 0.02 X 10*3/uL (0.00-0.10); Basophils % (A) 0.2 %; Eosinophils # (A) 0.16 X 10*3/uL (0.04-0.35); Eosinophils % (A) 1.6 %; HCT 35.6 % (37.2-46.3); HGB 10.9 g/dL (12.0-15.0); Lymphocytes # (A) 1.87 X 10*3/uL (0.90-5.00); Lymphocytes % (A) 19.1 %; MCH 25.4 pg (27.0-32.0); MCHC 30.6 g/dL (32.0-37.0); Mean Platelet Volume 11.3 FL (9.5-12.2); Monocytes # (A) 0.59 X 10*3/uL (0.20-1.00); NRBC Per 100 WBC 0 X 10*3/uL (0.00-0.01); Neutrophils # (A) 7.12 X 10*3/uL (1.80-7.70); Neutrophils % (A) 72.9 %; Platelet Count 229 X 10*3/uL (140-440); RBC 4.29 X 10*6/uL (4.10-5.20); RDW 15.9 % (11.5-14.5); WBC 9.78 X 10*3/uL (4.50-10.00)
[2024-01-15 22:29] LABS: BUN/Creat Ratio 17.12 Ratio (12.00-20.00); Blood Urea Nitrogen 13.7 mg/dL (9.0-27.0); Carbon Dioxide 20.9 mmol/L (21.6-31.8); Chloride 103 mmol/L (96-109); Glucose 159 mg/dL (70-110); Potassium 3.9 mmol/L (3.5-5.5); Sodium 139 mmol/L (135-145)
== END | disposition home or self-care (01) ==
LOC: LABPAT 12:56
PROVIDERS: ATTEND Urology
DX: Z01.818 Encounter for other preprocedural examination (principal); N20.0 Calculus of kidney
CPT/HCPCS: 36415; 80048; 85025

== ENCOUNTER 2024-01-18 13:21 | Day surgery (SDC) | payer MEDICAID ==
[2024-01-17 09:00] VITALS: BMI 41.2
[~2024-01-18 13:21] MED LIST changes: -AMPICILLIN 1,000 MG in SODIUM CHLORIDE 0.9% 50 ML IVPB PRN; -GENTAMICIN 120 MG in SODIUM CHLORIDE 0.9% 100 ML IVPB PRN; -LACTATED RINGERS 1,000 ML IV SCH; +MIDAZOLAM 2 MG/2 ML VIAL IV PRN; -ONDANSETRON 4 MG/2 ML VIAL IVP ONE
--- NOTE | 2024-01-18 13:38 | XR ---
EXAMINATION TYPE: XR KUB DATE OF EXAM: 01/18/2024 1:34 PM CLINICAL INDICATION:Female, 48 years old with history of Bilateral Renal Stone N20.0; [facility] COMPARISON: 01/15/2024 TECHNIQUE: One radiographic view of the abdomen was obtained. FINDINGS: The bowel gas pattern is nonspecific without dilated loops of small or large bowel. There i s no evidence for organomegaly or pneumoperitoneum. The osseous structures are intact. Bilateral re nal calculi measuring up to 11 mm on the right and 6 mm on the left. Fecal material and gas are demon strated throughout the colon and rectum. Right upper quadrant cholecystectomy clips. Surgical clips project over the sacrum. Surgical clips on the left upper quadrant. IMPRESSION: 1. Bilateral renal calculi. 2. Nonspecific bowel gas pattern without radiographic evidence for acute process.
[2024-01-18] MEDS: LACTATED RINGERS 1,000 ML IV ONE ×2 (14:05→18:33)
[2024-01-18] MEDS: ONDANSETRON 4 MG/2 ML VIAL IVP ONE ×2 (14:06→19:56)
[2024-01-18] MEDS: GENTAMICIN 120 MG in SODIUM CHLORIDE 0.9% 100 ML IVPB PRN (14:06)
[2024-01-18] MEDS: SCOPOLAMINE 1 MG/72 HR PATCH TRANSDERM ONE (14:06)
[2024-01-18] MEDS: DEXAMETHASONE SOD PHOSPHATE 4 MG/ML 1 ML VIAL IV ONE (14:06)
--- NOTE | 2024-01-18 14:30 | P.HPIHPCON ---
History of Present Illness H&P Date: 01/18/24 Chief Complaint: Bilateral renal stones This is a 48-year-old female with history of a 1.1 cm right-sided renal pelvis stone, and a 6 mm left-sided midpole stone, she is having bilateral flank pain secondary to her stones. Option of bilateral ureteroscopy with holmium laser was discussed. Aware the risk which includes but not limited to bleeding, infection, injury to the ureter. Risk of anesthesia she understood all the risk and agreed to proceed Consent for Procedure: I have explained the operation/procedure to the patient, including the risks, benefits, side effects, alternative therapies (including not receiving the proposed treatment or service), the likelihood of the patient achieving his/her goals, and potential recuperation problems for the procedure/sedation/analgesia, as well as any blood products, if indicated. I also explained to the patient the risks, benefits and side effects of the alternatives, as well as the risks related to not receiving the proposed procedure, care, treatment, or services. Past Medical History Past Medical History: GERD/Reflux, Hypertension, Osteoarthritis (OA), Pneumonia Additional Past Medical History / Comment(s): kidney stones/septic stone, environmental allergies, pneumonia aug 2021 post-op, herniated discs, occasional tachycardia, ileus History of Any Multi-Drug Resistant Organisms: ESBL Date of last positivie culture/infection: 07/14/23 MDRO Source:: urine Past Surgical History: Adenoidectomy, Bariatric Surgery, Section, Cholecystectomy, Hysterectomy, Joint Replacement, Orthopedic Surgery, Tonsillectomy Additional Past Surgical History / Comment(s): 08/09/23 cystoscopy with L lithotripsy/L stent removed, left knee replacement, arthroscopy right knee, lap band 16 yrs ago- no fluid in band per pt. surgery at [facility]), 03/23/22 trigger finger, KIDNEY STONE SX, gastric sleeve 10/11, ankle cyst removed as child Past Anesthesia/Blood Transfusion Reactions: Postoperative Nausea & Vomiting (PONV) Additional Past Anesthesia/Blood Transfusion Reaction / Comment(s): grandmother- difficulty waking up, slight fever one time but not ever told it was malignant hyperthermia Past Psychological History: Depression Additional Psychological History / Comment(s): . Smoking Status: Never smoker Past Alcohol Use History: None Reported Past Drug Use History: None Reported - Past Family History Mother Family Medical History: Cancer, Hypertension Medications and Allergies Home Medications Medication Instructions Recorded Confirmed Type Metoprolol Succinate (ER) [Toprol 150 mg PO BID 05/07/18 01/18/24 History XL] Pregabalin [Lyrica] 150 mg PO HS 04/21/20 01/18/24 History Vortioxetine Hydrobromide 20 mg PO HS 04/21/20 01/18/24 History [Trintellix] Zolpidem [Ambien] 10 mg PO HS 04/21/20 01/18/24 History ARIPiprazole [Abilify] 2 mg PO HS 03/10/21 01/18/24 History amLODIPine [Norvasc] 5 mg PO HS 03/10/21 01/18/24 History Cyclobenzaprine [Flexeril] 10 mg PO BID PRN 07/09/23 01/18/24 History DULoxetine HCL [Cymbalta] 60 mg PO HS 07/09/23 01/18/24 History cloNIDine HCL [Catapres] 0.1 mg PO HS 07/09/23 01/18/24 History Ondansetron Odt [Zofran Odt] 4 mg PO DAILY PRN 12/18/23 01/18/24 History HYDROcodone/APAP 5-325MG [[place] 1 tab PO Q8H PRN 01/17/24 01/18/24 History 5-325] Ketorolac [Toradol] 10 mg PO Q6HR PRN 01/17/24 01/18/24 History Nitrofurantoin Monohyd/M-Cryst 100 mg PO Q12HR 01/17/24 01/18/24 History [Macrobid] Allergies Allergy/AdvReac Type Severity Reaction Status Date / Time ofloxacin [From Floxin] AdvReac Unknown Hallucinati Verified 01/18/24 13:54 ons SAI Inhibitors AdvReac ANGIOEDEMA Verified 01/18/24 13:54 bupropion [From Wellbutrin] AdvReac seizure Verified 01/18/24 13:54 venlafaxine [From Effexor] AdvReac seizure Verified 01/18/24 13:54 Surgical - Exam Vital Signs Temp Pulse Resp BP Pulse Ox 97.9 F 78 18 175/70 97 01/18/24 13:43 01/18/24 13:43 01/18/24 13:43 01/18/24 13:43 01/18/24 13:43 - General no distress, moderate pain - Eyes normal ocular movement, no pale - ENT normal nares, normal mucosa - Respiratory normal expansion, normal respiratory effort - Abdomen Abdomen: soft, non tender Assessment and Plan Assessment: OR for bilateral ureteroscopy, laser lithotripsy, stone basketing and stent insertion
[2024-01-18] MEDS ORDERED: PHENYLEPHRINE 10 MG/ML VIAL ONE (17:49)
[2024-01-18] MEDS ORDERED: LIDOCAINE 1% INJ 10MG/ML (20 ML MDV) ONE (17:49)
[2024-01-18] MEDS ORDERED: MIDAZOLAM 2 MG/2 ML VIAL ONE (17:49)
[2024-01-18] MEDS ORDERED: PROPOFOL 10 MG/ML 20 ML VIAL IV ONE (17:49)
[2024-01-18] MEDS ORDERED: KETOROLAC 30 MG/ML 1 ML VIAL ONE (17:49)
[2024-01-18] MEDS ORDERED: ALBUTEROL HFA INHALER INHALATION ONE (17:49)
[2024-01-18] MEDS ORDERED: fentaNYL (PF) 50 MCG/ML 2 ML AMP ONE (17:49)
[2024-01-18] MEDS ORDERED: SUCCINYLCHOLINE CHLORIDE 200 MG/10 ML VIAL IV ONE (17:49)
[2024-01-18 19:49] VITALS: RESP 16; TEMP 97
[2024-01-18] MEDS: LACTATED RINGERS 1,000 ML IV SCH (20:04)
--- NOTE | 2024-01-18 20:39 | P.OP ---
Date of Procedure: 01/18/24 Preoperative Diagnosis: Bilateral renal stones Postoperative Diagnosis: Same Procedure(s) Performed: Cystoscopy, bilateral ureteroscopy, holmium laser lithotripsy, stone basketing and stent insertion Implants: 6 Trin[place] by 26 cm stent in the bilateral ureter Anesthesia: SEAN Surgeon: Davin Marcelo Estimated Blood Loss (ml): 5 Pathology: other (Bilateral renal stones) Condition: stable Disposition: PACU Indications for Procedure: This is a 48-year-old female with history of a 1.1 cm right-sided renal pelvis stone, and a 6 mm left-sided midpole stone, she is having bilateral flank pain secondary to her stones. Option of bilateral ureteroscopy with holmium laser was discussed. Aware the risk which includes but not limited to bleeding, infection, injury to the ureter. Risk of anesthesia she understood all the risk and agreed to proceed Operative Findings: right: multiple stones within the renal pelvis, an additional stone in the lower pole on the right side Left: Large stone in the midpole Description of Procedure: Patient brought to the operating room, general anesthesia was induced. She was prepped and draped in sterile fashion and placed in dorsolithotomy position. Cystoscopy fitted with a 21 Trin[place] sheath was inserted per urethra, cystoscopy was performed which showed no abnormality within the bladder. Attention was then carried to the right ureteral orifice which was intubated with a sensor wire. Next under fluoroscopy 1113 Trin[place] access sheath was passed over the wire and into the proximal ureter. Next a flexible ureteroscope was inserted through the access sheath, renoscopy was performed showed approximately 3 large stones in the renal pelvis and an additional stone in the lower pole. Using the holmium laser the stones were dusted, any sizable stone fragments were removed using the stone basket. Of note patient did have slight narrowing at the UPJ but I was able to pass the scope without any difficulty. At this time pullback ureteroscopy was performed showed no injury to the ureter or any ureteral stones, as ureteroscope was withdrawn a sensor wire was advanced through. Next a ureteral stent was passed over the wire, the proximal curl was visualized on fluoroscopy and the distal curl was visualized using the cystoscope. Attention was then carried to the left side, a sensor wire was advanced per scope and up into the kidney. Next under fluoroscopy and 1113 [place] access sheath was passed over the wire into the proximal ureter. Next a flexible ureteroscope was inserted through the access sheath, a large stone was seen in the midpole. Usi ng the holmium laser the stone was dusted, any sizable stone fragments were removed using the stone basket. Repeat renoscopy showed no injury to the kidney or any ureteral stones, pullback ureteroscopy was performed showed no any ureteral stones or injury to the ureter as ureteroscope was withdrawn a sensor wire was advanced through next a ureteral stent was passed over the wire, the proximal curl was visualized on fluoroscopy and the distal curl was visualized using the cystoscope. The bladder was emptied at the end of the case. Patient tolerated procedure well taken to recovery in stable condition
[2024-01-18 21:05] VITALS: BP 120/61; PULSE 79
--- NOTE | 2024-01-19 09:18 | FL ---
EXAMINATION TYPE: FL guidance operating room Intraoperative/procedural fluoroscopic services were pro vided. Total fluoroscopy time is 17 seconds with a total of 1 submitted images to PACS. Please see th e operative/procedural note for further details. DAP: 2. 04/23/2020 Gycm2
== END 2024-01-18 21:03 | disposition home or self-care (01) ==
LOC: OR 13:21
PROVIDERS: ATTEND Urology
DX: N20.0 Calculus of kidney (principal); I10 Essential (primary) hypertension; K21.9 Gastro-esophageal reflux disease without esophagitis; F32.A Depression, unspecified; I48.91 Unspecified atrial fibrillation; M19.90 Unspecified osteoarthritis, unspecified site; Z90.49 Acquired absence of other specified parts of digestive tract; Z90.89 Acquired absence of other organs; Z98.891 History of uterine scar from previous surgery; Z90.710 Acquired absence of both cervix and uterus; Z98.890 Other specified postprocedural states; Z82.49 Family history of ischemic heart disease and other diseases of the circulatory system; Z88.1 Allergy status to other antibiotic agents; Z88.8 Allergy status to other drugs, medicaments and biological substances; Z79.899 Other long term (current) drug therapy; Z79.01 Long term (current) use of anticoagulants
CPT/HCPCS: 82365; 74018; 52356; C2625; C1769; J2250; J0330; J1100; J2405; J2001; J3010; J1885; J1580; J2704; J2371

== ENCOUNTER 2024-02-06 00:21 | Emergency (ER) | payer MEDICAID ==
--- NOTE | 2024-02-06 01:03 | ED ---
Abdominal Pain HPI - General Chief Complaint: Abdominal Pain Stated Complaint: Abd pain Time Seen by Provider: 02/06/24 00:29 Source: patient Mode of arrival: wheelchair Limitations: no limitations - History of Present Illness Initial Comments: 48-year-old female with a past medical history significant for kidney stones presenting to the ED with complaints of flank pain. Earlier this month, patient had bilateral stents and lithotripsy. States had stents removed last week. Reports she has been otherwise been doing well however over the past 2 or 3 days onset of bilateral flank pain right greater than left. Also notes associated pain with urination, cloudy urine, and hematuria. Since onset reports the symptoms have increased in severity prompting presentation to the ED for further evaluation. Notes chills however no fever. No chest pain shortness of breath. No changes in bowel habits. No other complaints at this time. - Related Data Home Medications Medication Instructions Recorded Confirmed Metoprolol Succinate (ER) [Toprol 150 mg PO BID 05/07/18 01/18/24 XL] Pregabalin [Lyrica] 150 mg PO HS 04/21/20 01/18/24 Vortioxetine Hydrobromide 20 mg PO HS 04/21/20 01/18/24 [Trintellix] Zolpidem [Ambien] 10 mg PO HS 04/21/20 01/18/24 ARIPiprazole [Abilify] 2 mg PO HS 03/10/21 01/18/24 amLODIPine [Norvasc] 5 mg PO HS 03/10/21 01/18/24 Cyclobenzaprine [Flexeril] 10 mg PO BID PRN 07/09/23 01/18/24 DULoxetine HCL [Cymbalta] 60 mg PO HS 07/09/23 01/18/24 cloNIDine HCL [Catapres] 0.1 mg PO HS 07/09/23 01/18/24 Ondansetron Odt [Zofran Odt] 4 mg PO DAILY PRN 12/18/23 01/18/24 HYDROcodone/APAP 5-325MG [[place]erkimer 1 tab PO Q8H PRN 01/17/24 01/18/24 5-325] Ketorolac [Toradol] 10 mg PO Q6HR PRN 01/17/24 01/18/24 Nitrofurantoin Monohyd/M-Cryst 100 mg PO Q12HR 01/17/24 01/18/24 [Macrobid] Previous Rx's Medication Instructions Recorded Sulfamethox-Tmp 800-160Mg [Bactrim 1 each PO Q12HR 14 Days #28 tab 02/06/24 Ds] Allergies Allergy/AdvReac Type Severity Reaction Status Date / Time ofloxacin [From Floxin] AdvReac Unknown Hallucinati Verified 02/06/24 00:27 ons SAI Inhibitors AdvReac ANGIOEDEMA Verified 02/06/24 00:27 bupropion [From Wellbutrin] AdvReac seizure Verified 02/06/24 00:27 venlafaxine [From Effexor] AdvReac seizure Verified 02/06/24 00:27 Review of Systems ROS Statement: Those systems with pertinent positive or pertinent negative responses have been documented in the HPI. ROS Other: All systems not noted in ROS Statement are negative. Past Medical History Past Medical History: GERD/Reflux, Hypertension, Osteoarthritis (OA), Pneumonia Additional Past Medical History / Comment(s): kidney stones/septic stone, environmental allergies, pneumonia aug 2021 post-op, herniated discs, occasional tachycardia, ileus History of Any Multi-Drug Resistant Organisms: ESBL Date of last positivie culture/infection: 07/14/23 MDRO Source:: urine Past Surgical History: Adenoidectomy, Bariatric Surgery, Section, Cholecystectomy, Hysterectomy, Joint Replacement, Orthopedic Surgery, Tonsillectomy Additional Past Surgical History / Comment(s): 08/09/23 cystoscopy with L lithotripsy/L stent removed, left knee replacement, arthroscopy right knee, lap band 16 yrs ago- no fluid in band per pt. surgery at [facility]), 03/23/22 trigger finger, KIDNEY STONE SX, gastric sleeve 10/11, ankle cyst removed as child samaria ureter stents Past Anesthesia/Blood Transfusion Reactions: Postoperative Nausea & Vomiting (PONV) Additional Past Anesthesia/Blood Transfusion Reaction / Comment(s): grandmother- difficulty waking up, slight fever one time but not ever told it was malignant hyperthermia Past Psychological History: Depression Smoking Status: Never smoker Past Alcohol Use History: None Reported Past Drug Use History: None Reported - Past Family History Mother Family Medical History: Cancer, Hypertension General Exam Limitations: no limitations General appearance: alert, in no apparent distress, obese Eye exam: Present: normal appearance Neck exam: Present: normal inspection Respiratory exam: Present: normal lung sounds bilaterally Cardiovascular Exam: Present: regular rate GI/Abdominal exam: Present: soft, normal bowel sounds, other (Right CVA tenderness to percussion). Absent: distended, tenderness, guarding, rebound, rigid Neurological exam: Present: alert, oriented X3 Skin exam: Present: warm, dry Course Vital Signs 02/06/24 00:24 Temperature 98.8 F Pulse Rate 77 Respiratory 20 Rate Blood Pressure 133/80 O2 Sat by Pulse 99 Oximetry Medical Decision Making - Medical Decision Making Was pt. sent in by a medical professional or institution (, PA, [facility], urgent care, hospital, or fpc...) When possible be specific @ -No Did you speak to anyone other than the patient for history (EMS, parent, family, police, friend...)? What history was obtained from this source @ -No Did you review nursing and triage notes (agree or disagree)? Why? @ -I reviewed and agree with nursing and triage notes Were old charts reviewed (outside hosp., previous admission, EMS record, old EKG, old radiological studies, urgent care reports/EKG's, fpc records)? Report findings @ -Reviewed prior documentation showing bilateral uteroscopy, lithotripsy, and stent placement on 01/18/2024. Differential Diagnosis (chest pain, altered mental status, abdominal pain women, abdominal pain men, vaginal bleeding, weakness, fever, dyspnea, syncope, headache, dizziness, GI bleed, back pain, seizure, CVA, palpatations, mental health, musculoskeletal)? @ -Differential Abdominal Pain Women: Appendicitis, Cholecystitis, diverticulosis, ischemic bowel, pancreatitis, hepatitis, UTI, gastroenteritis, AAA, incarcerated hernia, bowel obstruction, constipation, inflammatory bowel, hepatitis, peptic ulcer disease, splenic infarction, perforated viscus, vulvitis, ovarian torsion, PID, kidney stone, placenta abruption, this is not meant to be an all-inclusive list EKG interpreted by me (3pts min.). @ -None X-rays interpreted by me (1pt min.). @ -None done CT interpreted by me (1pt min.). @ -CT abdomen pelvis interpreted me. Previously noted nonobstructive nephrolit hiasis and inferior pole the right kidney no longer present with new small subcentimeter changes identified in the right renal pelvis. Nonobstructive nephrolithiasis in the inferior pole left kidney no longer evident. Similar sized mental nonobstructive nephrolithiasis is noted anterior in the inferior pole of the left kidney. There is new right pelviectasis and mild right hydroureteronephrosis with minimal periureteral fat stranding. No ureteral stones identified. U/S interpreted by me (1pt. min.). @ -None done What testing was considered but not performed or refused? (CT, X-rays, U/S, labs)? Why? @ -None What meds were considered but not given or refused? Why? @ -None Did you discuss the management of the patient with other professionals (professionals i.e. , PA, [facility], lab, RT, psych nurse, neonatal social worker, hay stacker operator, teacher, security officers and guards, spring encaser)? Give summary @ -Case discussed with Dr. Berry of urology who has no further recommendations at this time. Was smoking cessation discussed for >3mins.? @ -No Was critical care preformed (if so, how long)? @ -No Were there social determinants of health that impacted care today? How? (Ho melessness, low income, unemployed, alcoholism, drug addiction, transportation, low edu. Level, literacy, decrease access to med. care, long-term, rehab)? @ -No Was there de-escalation of care discussed even if they declined (Discuss DNR or withdrawal of care, Hospice)? DNR status @ -No What co-morbidities impacted this encounter? (DM, HTN, Smoking, COPD, CAD, Cancer, CVA, ARF, Chemo, Hep., AIDS, mental health diagnosis, sleep apnea, morbid obesity)? @ -None Was patient admitted / discharged? Hospital course, mention meds given and route, prescriptions, significant lab abnormalities, going to OR and other pertinent info. @ -Discharge 48-year-old female with past medical history of recent bilateral ureteroscopy, lithotripsy, and bilateral stent placement on 01/18/2024 removed outpatient 1 week ago presenting to the ED with complaints of bilateral flank pain right worse than left, dysuria, cloudy urine for the past 2 or 3 days worsening since onset. Laboratory studies reviewed. CBC shows no elevation white blood cell count. Chemistry panel largely unremarkable. UA does show evidence of urinary tract infection with small blood, positive nitrites, large leukocyte Estrace, greater than 180 white blood cells, and many bacteria. Urine culture was obtained. At this time vital signs stable afebrile. Patient provided 1 g of ceftriaxone here and discharged home with prescription for Bactrim. Discharged home in stable condition. Discussed strict return precautions with patient who verbalized agreement. Undiagnosed new problem with uncertain prognosis? @ -No Drug Therapy requiring intensive monitoring for toxicity (Heparin, Nitro, Insulin, Cardizem)? @ -No Were any procedures done? @ -No Diagnosis/symptom? @ -Pyelonephritis Acute, or Chronic, or Acute on Chronic? @ -Acute Uncomplicated (without systemic symptoms) or Complicated (systemic symptoms)? @ -Uncomplicated Side effects of treatment? @ -No Exacerbation, Progression, or Severe Exacerbation? @ -No Poses a threat to life or bodily function? How? (Chest pain, USA, MS, pneumonia, PE, COPD, DKA, ARF, appy, cholecystitis, CVA, Diverticulitis, Homicidal, Suicidal, threat to staff... and all critical care pts) @ -No - Lab Data Result diagrams: 02/06/24 01:10 02/06/24 01:10 Lab Results 02/06/24 02/06/24 02/06/24 Range/Units 01:10 01:10 02:06 WBC 8.0 (3.8-10.6) k/uL RBC 4.17 (3.80-5.40) m/uL Hgb 10.3 L (11.4-16.0) gm/dL Hct 33.3 L (34.0-46.0) % MCV 79.7 L (80.0-100.0) fL MCH 24.7 L (25.0-35.0) pg MCHC 31.0 (31.0-37.0) g/dL RDW 15.6 H (11.5-15.5) % Plt Count 254 (150-450) k/uL MPV 8.2 Neutrophils % 55 % Lymphocytes % 32 % Monocytes % 6 % Eosinophils % 3 % Basophils % 1 % Neutrophils # 4.4 (1.3-7.7) k/uL Lymphocytes # 2.6 (1.0-4.8) k/uL Monocytes # 0.5 (0-1.0) k/uL Eosinophils # 0.3 (0-0.7) k/uL Basophils # 0.1 (0-0.2) k/uL Hypochromasia Slight Sodium 138 (137-145) mmol/L Potassium 4.9 (3.5-5.1) mmol/L Chloride 112 H (98-107) mmol/L Carbon Dioxide 20 L (22-30) mmol/L Anion Gap 6 mmol/L BUN 23 H (7-17) mg/dL Creatinine 0.73 (0.52-1.04) mg/dL Est GFR (CKD-EPI)AfAm >90 (>60 ml/min/1.73 sqM) Est GFR (CKD-EPI)NonAf >90 (>60 ml/min/1.73 sqM) Glucose 104 H (74-99) mg/dL Calcium 8.8 (8.4-10.2) mg/dL Total Bilirubin 0.6 (0.2-1.3) mg/dL AST 38 H (14-36) U/L ALT 20 (4-34) U/L Alkaline Phosphatase 123 (38-126) U/L Total Protein 6.5 (6.3-8.2) g/dL Albumin 3.7 (3.5-5.0) g/dL Amylase 51 (30-110) U/L Lipase 101 (23-300) U/L Urine Color Colorless Urine Appearance Cloudy H (Clear) Urine pH 6.5 (5.0-8.0) Ur Specific [place] 1.016 (1.001-1.035) Urine Protein 1+ H (Negative) Urine Glucose (UA) Negative (Negative) Urine Ketones Negative (Negative) Urine Blood Small H (Negative) Urine Nitrite Positive H (Negative) Urine Bilirubin Negative (Negative) Urine Urobilinogen <2.0 (<2.0) mg/dL Ur Leukocyte Esterase Large H (Negative) Urine RBC 31 H (0-5) /hpf Urine WBC >182 H (0-5) /hpf Ur Squamous Epith Cells 3 (0-4) /hpf Urine Bacteria Many H (None) /hpf Urine Mucus Rare H (None) /hpf Urine Yeast (Budding) Occasional H (None) /hpf Urine HCG, Qual (Not Detectd) 02/06/24 Range/Units 02:06 WBC (3.8-10.6) k/uL RBC (3.80-5.40) m/uL Hgb (11.4-16.0) gm/dL Hct (34.0-46.0) % MCV (80.0-100.0) fL MCH (25.0-35.0) pg MCHC (31.0-37.0) g/dL RDW (11.5-15.5) % Plt Count (150-450) k/uL MPV Neutrophils % % Lymphocytes % % Monocytes % % Eosinophils % % Basophils % % Neutrophils # (1.3-7.7) k/uL Lymphocytes # (1.0-4.8) k/uL Monocytes # (0-1.0) k/uL Eosinophils # (0-0.7) k/uL Basophils # (0-0.2) k/uL Hypochromasia Sodium (137-145) mmol/L Potassium (3.5-5.1) mmol/L Chloride (98-107) mmol/L Carbon Dioxide (22-30) mmol/L Anion Gap mmol/L BUN (7-17) mg/dL Creatinine (0.52-1.04) mg/dL Est GFR (CKD-EPI)AfAm (>60 ml/min/1.73 sqM) Est GFR (CKD-EPI)NonAf (>60 ml/min/1.73 sqM) Glucose (74-99) mg/dL Calcium (8.4-10.2) mg/dL Total Bilirubin (0.2-1.3) mg/dL AST (14-36) U/L ALT (4-34) U/L Alkaline Phosphatase (38-126) U/L Total Protein (6.3-8.2) g/dL Albumin (3.5-5.0) g/dL Amylase (30-110) U/L Lipase (23-300) U/L Urine Color Urine Appearance (Clear) Urine pH (5.0-8.0) Ur Specific [place] (1.001-1.035) Urine Protein (Negative) Urine Glucose (UA) (Negative) Urine Ketones (Negative) Urine Blood (Negative) Urine Nitrite (Negative) Urine Bilirubin (Negative) Urine Urobilinogen (<2.0) mg/dL Ur Leukocyte Esterase (Negative) Urine RBC (0-5) /hpf Urine WBC (0-5) /hpf Ur Squamous Epith Cells (0-4) /hpf Urine Bacteria (None) /hpf Urine Mucus (None) /hpf Urine Yeast (Budding) (None) /hpf Urine HCG, Qual Not Detected (Not Detectd) Disposition Clinical Impression: Pyelonephritis Disposition: HOME SELF-CARE Condition: Good Instructions (If sedation given, give patient instructions): Kidney Infection (ED) Additional Instructions: Please return to the Emergency Department if symptoms worsen or any other concerns. Please follow-up with your PCP and urology. Prescriptions: Sulfamethox-Tmp 800-160Mg [Bactrim Ds] 1 each PO Q12HR 14 Days #28 tab Is patient prescribed a controlled substance at d/c from ED?: No Referrals: Rosa Stewart MD [Primary Care Provider] - 1-2 days Time of Disposition: 03:51
[2024-02-06] MEDS: ACETAMINOPHEN TAB 500 MG TAB PO STA (01:16)
[2024-02-06] MEDS: SODIUM CHLORIDE 0.9% 1,000 ML IV STA (01:17)
[2024-02-06] MEDS: KETOROLAC 15 MG/ML 1 ML VIAL IVP STA (01:18)
[2024-02-06 01:20] VITALS: TEMP 98.8
[2024-02-06] MEDS: ONDANSETRON 4 MG/2 ML VIAL IVP STA (01:21)
[2024-02-06 01:30] LABS: ALT 20 U/L (4-34); African American GFR (CKD) >90 (>60 ml/min/1.73 sqM); Amylase 51 U/L (30-110); Anion Gap 6 mmol/L; Blood Urea Nitrogen 23 mg/dL (7-17); Calcium 8.8 mg/dL (8.4-10.2); Carbon Dioxide 20 mmol/L (22-30); Chloride 112 mmol/L (98-107); Glucose 104 mg/dL (74-99); Lipase 101 U/L (23-300); Non-African American GFR(CKD) >90 (>60 ml/min/1.73 sqM); Sodium 138 mmol/L (137-145)
[2024-02-06 01:54] LABS: Basophils # (A) 0.1 k/uL (0-0.2); Basophils % (A) 1 %; Eosinophils # (A) 0.3 k/uL (0-0.7); Eosinophils % (A) 3 %; HCT 33.3 % (34.0-46.0); HGB 10.3 gm/dL (11.4-16.0); Hypochromasia Slight; Lymphocytes # (A) 2.6 k/uL (1.0-4.8); Lymphocytes % (A) 32 %; MCH 24.7 pg (25.0-35.0); MCV 79.7 fL (80.0-100.0); Mean Platelet Volume 8.2; Monocytes # (A) 0.5 k/uL (0-1.0); Monocytes % (A) 6 %; Neutrophils # (A) 4.4 k/uL (1.3-7.7); Neutrophils % (A) 55 %; Platelet Count 254 k/uL (150-450); RBC 4.17 m/uL (3.80-5.40); RDW 15.6 % (11.5-15.5)
[2024-02-06 02:17] LABS: AST 38 U/L (14-36); Albumin 3.7 g/dL (3.5-5.0); Alkaline Phosphatase 123 U/L (38-126); Potassium 4.9 mmol/L (3.5-5.1); Total Bilirubin 0.6 mg/dL (0.2-1.3); Total Protein 6.5 g/dL (6.3-8.2)
[2024-02-06 02:57] LABS: Appearance,Urine Cloudy (Clear); Bacteria,Urine Many /hpf; Bilirubin,Urine Negative (Negative); Blood,Urine Small (Negative); Budding Yeast,Urine Occasional /hpf; Color,Urine Colorless; Glucose,Urine (UA) Negative (Negative); Ketones,Urine Negative (Negative); Leukocyte Esterase,Urine Large (Negative); Mucus,Urine Rare /hpf; Nitrite,Urine Positive (Negative); PH, Urine 6.5 (5.0-8.0); Protein,Urine 1+ (Negative); RBC,Urine 31 /hpf (0-5); Specific Gravity,Urine 1.016 (1.001-1.035); Squamous Epithelial Cell,Urine 3 /hpf (0-4); Urobilinogen,Urine <2.0 mg/dL (<2.0); WBC,Urine >182 /hpf (0-5)
--- NOTE | 2024-02-06 03:33 | CT ---
EXAM: CT Abdomen and Pelvis Without Intravenous Contrast CLINICAL HISTORY: Bilateral flank pain r>l r/o stone TECHNIQUE: Axial computed tomography images of the abdomen and pelvis without intravenous contrast. CTDI is 22.5 mGy and DLP is 1405.3 mGy-cm. This CT exam was performed using one or more of the following dose reduction techniques: automated exposure control, adjustment of the mA and/or kV according to patient size, and/or use of iterative reconstruction technique. COMPARISON: CT abdomen and pelvis without contrast dated 12/08/2023 FINDINGS: Lung bases: Unremarkable. No mass. No consolidation. ABDOMEN: Liver: Unremarkable. Gallbladder and bile ducts: Cholecystectomy. No ductal dilation. Pancreas: Unremarkable. No ductal dilation. Spleen: Unremarkable. No splenomegaly. Adrenals: Unremarkable. No mass. Kidneys and ureters: The previously noted nonobstructive nephrolithiasis in the inferior pole the right kidney are no longer present with some new small subcentimeter changes identified in the right renal pelvis. The nonobstructive nephrolithiasis in the inferior pole the left kidney is no longer evident. Similar segmental nonobstructive nephrolithiasis noted anteriorly in the inferior pole the left kidney remains. There is new right pelviectasis and mild right hydroureteronephrosis with minimal periureteral fat stranding. No ureteral stones identified. Stomach and bowel: Postsurgical changes consistent with gastric reduction surgery, stable. No evidence for bowel obstruction. Evaluation of the bowel mucosa is slightly limited without contrast; however, no definite focal asymmetry suggested. Mild to moderate stool burden. No appreciable diverticulitis. PELVIS: Appendix: A normal caliber appendix is noted medial to the cecum in the right lower quadrant. Bladder: No bladder stones or bladder wall thickening. Reproductive: Status post hysterectomy. ABDOMEN and PELVIS: Intraperitoneal space: Unremarkable. No free air. No significant fluid collection. Bones/joints: No acute fracture. No dislocation. Soft tissues: Unremarkable. Vasculature: Unremarkable. No abdominal aortic aneurysm. Lymph nodes: Unremarkable. No enlarged lymph nodes. IMPRESSION: 1. The previously noted nonobstructive nephrolithiasis in the inferior pole the right kidney are no longer present with some new small subcentimeter changes identified in the right renal pelvis. The nonobstructive nephrolithiasis in the inferior pole the left kidney is no longer evident. Similar segmental nonobstructive nephrolithiasis noted anteriorly in the inferior pole the left kidney remains. 2. There is new right pelviectasis and mild right hydroureteronephrosis with minimal periureteral fat stranding. No ureteral stones identified. No bladder stones. Differential consideration includes recently passed right ureteral stone versus inflammation/infection of the urothelium leading to mild urinary retention.
[2024-02-06] MEDS: cefTRIAXone IN SWFI 1,000 MG/10 ML SYRINGE IVP STA (03:43)
[2024-02-06 04:31] VITALS: BP 130/79; PULSE 58; RESP 18
== END 2024-02-06 04:08 | disposition home or self-care (01) ==
LOC: EC 00:21
DX: N13.6 Pyonephrosis (principal); Z88.8 Allergy status to other drugs, medicaments and biological substances
CPT/HCPCS: 36415; 80053; 82150; 83690; 85025; 81001; 81025; 87086; 87077; 87186; 74176; 99284; 96374; 96375 ×2; 96361; J2405; J0696; J1885

== ENCOUNTER 2024-02-11 12:31 | Inpatient (IN) | payer MEDICAID ==
[2024-02-11 13:43] LABS: Basophils # (A) 0.1 k/uL (0-0.2); Basophils % (A) 1 %; Eosinophils # (A) 0.4 k/uL (0-0.7); Eosinophils % (A) 5 %; HGB 11.1 gm/dL (11.4-16.0); Hypochromasia Slight; Lymphocytes % (A) 29 %; MCH 25.5 pg (25.0-35.0); MCHC 31.7 g/dL (31.0-37.0); MCV 80.2 fL (80.0-100.0); Mean Platelet Volume 8.1; Monocytes # (A) 0.5 k/uL (0-1.0); Monocytes % (A) 8 %; Neutrophils # (A) 3.9 k/uL (1.3-7.7); Neutrophils % (A) 55 %; Platelet Count 285 k/uL (150-450); RBC 4.36 m/uL (3.80-5.40); RDW 15.6 % (11.5-15.5); WBC 7.1 k/uL (3.8-10.6)
--- NOTE | 2024-02-11 13:49 | ED ---
General Adult HPI - General Chief complaint: Abdominal Pain Stated complaint: [place] Pain Time Seen by Provider: 02/11/24 13:06 Source: patient, RN notes reviewed Mode of arrival: ambulatory Limitations: no limitations - History of Present Illness Initial comments: 48-year-old female presents to the emergency department for evaluation of bilateral flank pain and dysuria. Patient states that Monday she was diagnosed with pyelonephritis. She was started on Bactrim at that time. She reports that she was following with her urologist after the culture resulted she was switched to macrobid. Subjective fever at home last night. She reports continued flank pain that she feels is getting worse. Also reports continued urinary frequency and dysuria. - Related Data Home Medications Medication Instructions Recorded Confirmed Metoprolol Succinate (ER) [Toprol 150 mg PO BID 05/07/18 02/11/24 XL] Pregabalin [Lyrica] 150 mg PO HS 04/21/20 02/11/24 Vortioxetine Hydrobromide 20 mg PO HS 04/21/20 02/11/24 [Trintellix] Zolpidem [Ambien] 10 mg PO HS 04/21/20 02/11/24 ARIPiprazole [Abilify] 2 mg PO HS 03/10/21 02/11/24 amLODIPine [Norvasc] 5 mg PO HS 03/10/21 02/11/24 Cyclobenzaprine [Flexeril] 10 mg PO BID PRN 07/09/23 02/11/24 DULoxetine HCL [Cymbalta] 60 mg PO HS 07/09/23 02/11/24 cloNIDine HCL [Catapres] 0.1 mg PO HS 07/09/23 02/11/24 Nitrofurantoin Monohyd/M-Cryst 100 mg PO Q12HR 01/17/24 02/11/24 [Macrobid] Albuterol Inhaler [Ventolin Hfa 1 - 2 puff INHALATION RT-Q6H PRN 02/11/24 02/11/24 Inhaler] Allergies Allergy/AdvReac Type Severity Reaction Status Date / Time ofloxacin [From Floxin] AdvReac Unknown Hallucinati Verified 02/11/24 16:36 ons SAI Inhibitors AdvReac ANGIOEDEMA Verified 02/11/24 16:36 bupropion [From Wellbutrin] AdvReac seizure Verified 02/11/24 16:36 venlafaxine [From Effexor] AdvReac seizure Verified 02/11/24 16:36 Review of Systems ROS Statement: Those systems with pertinent positive or pertinent negative responses have been documented in the HPI. ROS Other: All systems not noted in ROS Statement are negative. Past Medical History Past Medical History: GERD/Reflux, Hypertension, Osteoarthritis (OA), Pneumonia, Renal Disease Additional Past Medical History / Comment(s): kidney stones/septic stone, environmental allergies, pneumonia aug 2021 post-op, herniated discs, occasional tachycardia, ileus History of Any Multi-Drug Resistant Organisms: ESBL Date of last positivie culture/infection: 07/14/23 MDRO Source:: urine Past Surgical History: Adenoidectomy, Bariatric Surgery, Section, Cholecystectomy, Hysterectomy, Joint Replacement, Orthopedic Surgery, Tonsillectomy Additional Past Surgical History / Comment(s): 08/09/23 cystoscopy with L lithotripsy/L stent removed, left knee replacement, arthroscopy right knee, lap band 16 yrs ago- no fluid in band per pt. surgery at [facility]), 03/23/22 trigger finger, KIDNEY STONE SX, gastric sleeve 10/11, ankle cyst removed as child samaria ureter stents Past Anesthesia/Blood Transfusion Reactions: Postoperative Nausea & Vomiting (PONV) Additional Past Anesthesia/Blood Transfusion Reaction / Comment(s): grandmother-difficulty waking up, slight fever one time but not ever told it was malignant hyperthermia Past Psychological History: Depression Smoking Status: Never smoker Past Alcohol Use History: None Reported Past Drug Use History: None Reported - Past Family History Mother Family Medical History: Cancer, Hypertension General Exam Limitations: no limitations General appearance: alert, in no apparent distress Head exam: Present: atraumatic, normocephalic, normal inspection Eye exam: Present: normal appearance, PERRL, EOMI. Absent: scleral icterus, conjunctival injection, periorbital swelling ENT exam: Present: normal exam, mucous membranes moist Neck exam: Present: normal inspection. Absent: tenderness, meningismus, lymphadenopathy Respiratory exam: Present: normal lung sounds bilaterally. Absent: respiratory distress, wheezes, rales, rhonchi, stridor Cardiovascular Exam: Present: regular rate, normal rhythm, normal heart sounds. Absent: systolic murmur, diastolic murmur, rubs, gallop, clicks GI/Abdominal exam: Present: soft, normal bowel sounds. Absent: distended, tenderness, guarding, rebound, rigid Back exam: Present: CVA tenderness (R), CVA tenderness (L) Neurological exam: Present: alert, oriented X3, CN II-XII intact Psychiatric exam: Present: normal affect, normal mood Skin exam: Present: warm, dry, intact, normal color. Absent: rash Course Vital Signs 02/11/24 02/11/24 12:54 16:30 Temperature 98.9 F Pulse Rate 82 80 Respiratory 16 20 Rate Blood Pressure 170/100 140/80 O2 Sat by Pulse 98 98 Oximetry Medical Decision Making - Medical Decision Making Was pt. sent in by a medical professional or institution (, PA, CRUTCHER HELPER, urgent care, hospital, or retirement...) When possible be specific @ -No Did you speak to anyone other than the patient for history (EMS, parent, family, police, friend...)? What history was obtained from this source @ -No Did you review nursing and triage notes (agree or disagree)? Why? @ -I reviewed and agree with nursing and triage notes Were old charts reviewed (outside hosp., previous admission, EMS record, old EKG, old radiological studies, urgent care reports/EKG's, retirement records)? Report findings @ -No old charts were reviewed Differential Diagnosis (chest pain, altered mental status, abdominal pain women, abdominal pain men, vaginal bleeding, weakness, fever, dyspnea, syncope, headache, dizziness, GI bleed, back pain, seizure, CVA, palpatations, mental health, musculoskeletal)? @ -Differential Back Pain: Strain, zoster, cauda equina syndrome, epidural abscess, vertebral osteomyelitis, discitis, fracture, subluxation, disc herniation, DJD, spinal stenosis, dissection, AAA, pancreatitis, peptic ulcer disease, pyelonephritis, kidney stone, this is not meant to be an all-inclusive list. EKG interpreted by me (3pts min.). @ -None X-rays interpreted by me (1pt min.). @ -None done CT interpreted by me (1pt min.). @ -None done U/S interpreted by me (1pt. min.). @ -None done What testing was considered but not performed or refused? (CT, X-rays, U/S, labs)? Why? @ -CT scan considered, patient underwent on 02/06/24 What meds were considered but not given or refused? Why? @ -None Did you discuss the management of the patient with other professionals (professionals i.e. , PA, CRUTCHER HELPER, lab, RT, psych nurse, social media marketing analyst, mail carrier, teacher, third officer, protective services case worker)? Give summary @ -Case discussed with Lynne physician who is accepting of the admission Was smoking cessation discussed for >3mins.? @ -No Was critical care preformed (if so, how long)? @ -No Were there social determinants of health that impacted care today? How? (Homelessness, low income, unemployed, alcoholism, drug addiction, transportation, low edu. Level, literacy, decrease access to med. care, fci, rehab)? @ -No Was there de-escalation of care discussed even if they declined (Discuss DNR or withdrawal of care, Hospice)? DNR status @ -No What co-morbidities impacted this encounter? (DM, HTN, Smoking, COPD, CAD, Cancer, CVA, ARF, Chemo, Hep., AIDS, mental health diagnosis, sleep apnea, morbid obesity)? @ -None Was patient admitted / discharged? Hospital course, mention meds given and route, prescriptions, significant lab abnormalities, going to OR and other pertinent info. @ -Admitted. Patient presented to the emergency department for evaluation of bilateral flank pain, urinary frequency, dysuria. Symptoms have been going on for around 6 days. She notes that she was originally started on Bactrim and then switched to Macrobid by her urologist. She admits to continued pain in bilateral flanks which seems to be slightly worse than previously. She also admits to continued frequency of urination and dysuria. Labs obtained. Patient has normal WBC. UA shows moderate leukocyte esterase, negative nitrite, 7 WBCs, 4 RBCs. This does appear to be improved from 02-06-2024 but there is still some evidence of infection and patient has continued symptoms without improvement. Patient will be admitted for IV antibiotics based on culture and sensitivity. Case discussed with Lynne who is accepting of the admission. Patient stable at time of admission. Case discussed with Dr. Almeida. Undiagnosed new problem with uncertain prognosis? @ -No Drug Therapy requiring intensive monitoring for toxicity (Heparin, Nitro, Insulin, Cardizem)? @ -No Were any procedures done? @ -No Diagnosis/symptom? @ -ESBL UTI, flank pain, failed outpatient treatment Acute, or Chronic, or Acute on Chronic? @ -Acute Uncomplicated (without systemic symptoms) or Complicated (systemic symptoms)? @ -complicated Side effects of treatment? @ -No Exacerbation, Progression, or Severe Exacerbation? @ -No Poses a threat to life or bodily function? How? (Chest pain, USA, GA, pneumonia, PE, COPD, DKA, ARF, appy, cholecystitis, CVA, Diverticulitis, Homicidal, Suicidal, threat to staff... and all critical care pts) @ -No - Lab Data Result diagrams: 02/11/24 13:36 02/11/24 13:36 Lab Results 02/11/24 02/11/24 02/11/24 Range/Units 13:36 13:36 13:36 WBC 7.1 (3.8-10.6) k/uL RBC 4.36 (3.80-5.40) m/uL Hgb 11.1 L (11.4-16.0) gm/dL Hct 35.0 (34.0-46.0) % MCV 80.2 (80.0-100.0) fL MCH 25.5 (25.0-35.0) pg MCHC 31.7 (31.0-37.0) g/dL RDW 15.6 H (11.5-15.5) % Plt Count 285 (150-450) k/uL MPV 8.1 Neutrophils % 55 % Lymphocytes % 29 % Monocytes % 8 % Eosinophils % 5 % Basophils % 1 % Neutrophils # 3.9 (1.3-7.7) k/uL Lymphocytes # 2.0 (1.0-4.8) k/uL Monocytes # 0.5 (0-1.0) k/uL Eosinophils # 0.4 (0-0.7) k/uL Basophils # 0.1 (0-0.2) k/uL Hypochromasia Slight Sodium 140 (137-145) mmol/L Potassium 3.9 (3.5-5.1) mmol/L Chloride 111 H (98-107) mmol/L Carbon Dioxide 21 L (22-30) mmol/L Anion Gap 8 mmol/L BUN 13 (7-17) mg/dL Creatinine 0.61 (0.52-1.04) mg/dL Est GFR (CKD-EPI)AfAm >90 (>60 ml/min/1.73 sqM) Est GFR (CKD-EPI)NonAf >90 (>60 ml/min/1.73 sqM) Glucose 105 H (74-99) mg/dL Plasma Lactic Acid Pietro (0.7-2.0) mmol/L Calcium 9.2 (8.4-10.2) mg/dL Total Bilirubin 0.2 (0.2-1.3) mg/dL AST 15 (14-36) U/L ALT 19 (4-34) U/L Alkaline Phosphatase 139 H (38-126) U/L Total Protein 6.2 L (6.3-8.2) g/dL Albumin 3.7 (3.5-5.0) g/dL Amylase 48 (30-110) U/L Lipase 71 (23-300) U/L Urine Color Yellow Urine Appearance Cloudy H (Clear) Urine pH 6.0 (5.0-8.0) Ur Specific [place] 1.013 (1.001-1.035) Urine Protein Trace H (Negative) Urine Glucose (UA) Negative (Negative) Urine Ketones Negative (Negative) Urine Blood Negative (Negative) Urine Nitrite Negative (Negative) Urine Bilirubin Negative (Negative) Urine Urobilinogen <2.0 (<2.0) mg/dL Ur Leukocyte Esterase Moderate H (Negative) Urine RBC 4 (0-5) /hpf Urine WBC 7 H (0-5) /hpf Ur Squamous Epith Cells 4 (0-4) /hpf Urine Bacteria Rare H (None) /hpf Urine Mucus Rare H (None) /hpf 02/11/24 Range/Units 13:36 WBC (3.8-10.6) k/uL RBC (3.80-5.40) m/uL Hgb (11.4-16.0) gm/dL Hct (34.0-46.0) % MCV (80.0-100.0) fL MCH (25.0-35.0) pg MCHC (31.0-37.0) g/dL RDW (11.5-15.5) % Plt Count (150-450) k/uL MPV Neutrophils % % Lymphocytes % % Monocytes % % Eosinophils % % Basophils % % Neutrophils # (1.3-7.7) k/uL Lymphocytes # (1.0-4.8) k/uL Monocytes # (0-1.0) k/uL Eosinophils # (0-0.7) k/uL Basophils # (0-0.2) k/uL Hypochromasia Sodium (137-145) mmol/L Potassium (3.5-5.1) mmol/L Chloride (98-107) mmol/L Carbon Dioxide (22-30) mmol/L Anion Gap mmol/L BUN (7-17) mg/dL Creatinine (0.52-1.04) mg/dL Est GFR (CKD-EPI)AfAm (>60 ml/min/1.73 sqM) Est GFR (CKD-EPI)NonAf (>60 ml/min/1.73 sqM) Glucose (74-99) mg/dL Plasma Lactic Acid Pietro 1.9 (0.7-2.0) mmol/L Calcium (8.4-10.2) mg/dL Total Bilirubin (0.2-1.3) mg/dL AST (14-36) U/L ALT (4-34) U/L Alkaline Phosphatase (38-126) U/L Total Protein (6.3-8.2) g/dL Albumin (3.5-5.0) g/dL Amylase (30-110) U/L Lipase (23-300) U/L Urine Color Urine Appearance (Clear) Urine pH (5.0-8.0) Ur Specific [place] (1.001-1.035) Urine Protein (Negative) Urine Glucose (UA) (Negative) Urine Ketones (Negative) Urine Blood (Negative) Urine Nitrite (Negative) Urine Bilirubin (Negative) Urine Urobilinogen (<2.0) mg/dL Ur Leukocyte Esterase (Negative) Urine RBC (0-5) /hpf Urine WBC (0-5) /hpf Ur Squamous Epith Cells (0-4) /hpf Urine Bacteria (None) /hpf Urine Mucus (None) /hpf Disposition Clinical Impression: UTI due to extended-spectrum beta lactamase (ESBL) producing Escherichia coli, Failure of outpatient treatment Disposition: ADMITTED IP TO THIS HOSP Condition: Stable Is patient prescribed a controlled substance at d/c from ED?: No
[2024-02-11] MEDS: ONDANSETRON 4 MG/2 ML VIAL IVP STA (13:50)
[2024-02-11] MEDS: KETOROLAC 15 MG/ML 1 ML VIAL IVP STA (13:50)
[2024-02-11] MEDS: SODIUM CHLORIDE 0.9% 1,000 ML IV STA (13:50)
[2024-02-11 13:53] LABS: ALT 19 U/L (4-34); AST 15 U/L (14-36); African American GFR (CKD) >90 (>60 ml/min/1.73 sqM); Albumin 3.7 g/dL (3.5-5.0); Alkaline Phosphatase 139 U/L (38-126); Amylase 48 U/L (30-110); Anion Gap 8 mmol/L; Blood Urea Nitrogen 13 mg/dL (7-17); Calcium 9.2 mg/dL (8.4-10.2); Carbon Dioxide 21 mmol/L (22-30); Chloride 111 mmol/L (98-107); Glucose 105 mg/dL (74-99); Lipase 71 U/L (23-300); Non-African American GFR(CKD) >90 (>60 ml/min/1.73 sqM); Potassium 3.9 mmol/L (3.5-5.1); Sodium 140 mmol/L (137-145); Total Bilirubin 0.2 mg/dL (0.2-1.3); Total Protein 6.2 g/dL (6.3-8.2)
[2024-02-11 14:07] LABS: Appearance,Urine Cloudy (Clear); Bacteria,Urine Rare /hpf; Bilirubin,Urine Negative (Negative); Blood,Urine Negative (Negative); Color,Urine Yellow; Glucose,Urine (UA) Negative (Negative); Ketones,Urine Negative (Negative); Leukocyte Esterase,Urine Moderate (Negative); Mucus,Urine Rare /hpf; Nitrite,Urine Negative (Negative); Protein,Urine Trace (Negative); RBC,Urine 4 /hpf (0-5); Specific Gravity,Urine 1.013 (1.001-1.035); Squamous Epithelial Cell,Urine 4 /hpf (0-4); Urobilinogen,Urine <2.0 mg/dL (<2.0); WBC,Urine 7 /hpf (0-5)
[2024-02-11] MEDS ORDERED: NALOXONE 0.4 MG/ML 1 ML VIAL IV PRN (15:45)
[2024-02-11] MEDS ORDERED: ACETAMINOPHEN TAB 325 MG TAB PO PRN (15:45)
[2024-02-11] MEDS ORDERED: KETOROLAC 15 MG/ML 1 ML VIAL IVP PRN (15:45)
[2024-02-11] MEDS: ERTAPENEM 1 GM in SODIUM CHLORIDE 0.9% 50 ML IVPB STA (16:18)
--- NOTE | 2024-02-11 17:40 | P.HPIM ---
History of Present Illness H&P Date: 02/11/24 Patient is a 48-year-old female with a history of recurrent pyelonephritis, hypertension, depression/anxiety, obesity, presenting with persistent dysuria, increased frequency, and flank pain. Patient was recently admitted 3 weeks ago for recurrent bilateral renal stones, underwent cystoscopy, bilateral ureteroscopy, holmium laser lithotripsy, stone basketing and stent insertion. Patient was subsequently seen by urology, and had stents removed. Cultures at that time were negative. However she started developing symptoms again about 1 week ago, and presented to the hospital, urine cultures were taken, patient was discharged on Bactrim. She was later called that cultures are growing MDRO bacteria resistant to Bactrim. Her symptoms have been persistent, causing worsening flank pain. She is also noticing chills, some nausea but denies any vomiting. She denies any high fevers. Denies any chest pain, shortness of breath, abdominal pain, or bowel complaints. In the ED, temperature was 98.9, pulse 82, respiratory 16, saturating at 98% on room air, blood pressure 170/100. WBC 7.1, hemoglobin 11.1, platelet 285, bicarb 21, creatinine 0.61, urinalysis negative for nitrates, positive for moderate leukocyte esterase, 7 WBCs noted in urine. Her last abdomen pelvis CT from 02/05 showed nonobstructive nephrolithiasis previously seen in the inferior pole of right kidney no longer present with some new small subcentimeter changes identified in the right renal pelvis, nonobstructive nephrolithiasis in the inferior pole of the left kidney is no longer evident, similar segmental nonobstructing nephrolithiasis noted anteriorly in the inferior pole of the left kidney remains. There is no new right pelviectasis and mild right hydro ureteral nephrosis with minimal periureteral fat stranding, concerning for recently passed right ureteral stone versus pyelonephritis. Patient being admitted for suspected pyelonephritis with failed outpatient antibiotic therapy. Urology consulted, started on ertapenem. Pertinent positives and negatives as discussed in HPI, a complete review of systems was performed and all other systems are negative. Patient seen and examined at bedside. Vital signs reviewed General: nontoxic, no distress, appears at stated age Derm: warm, dry Head: atraumatic, normocephalic, symmetric Eyes: EOMI, no lid lag, anicteric sclera, pupils equal round reactive to light ENT: Nose and ears atraumatic Neck: No thyromegaly, supple Mouth: no lip lesion, mucus membranes moist Cardiovascular: S1S2 reg, no murmur, no edema Lungs: clear to auscultation bilateral, no rhonchi, no rales, no wheeze, no accessory muscle use Abdominal: soft, nontender to palpation, no guarding, no appreciable organomegaly : CVA tenderness bilateral Ext: no gross muscle atrophy, muscle strength muscle strength 5 out of 5 in all 4 extremities, no contractures Neuro: CN II-XII grossly intact Psych: Alert, oriented, appropriate affect Assessment/Plan: Active: Acute on chronic pyelonephritis History of recurrent renal stones History of MDRO UTI -Continue ertapenem 1 g IV daily -Urine cultures pending -Consult urology -Renal ultrasound ordered -Pain control with oral Tylenol as needed, oral Motrin as needed, IV Toradol as needed, IV morphine as needed, monitor for sedation -Zofran 4 mg IV every 8 hours for nausea vomiting Chronic: Hypertension Anxiety/depression The patient is admitted with an anticipated greater than 2 midnight stay as inpatient status for evaluation of acute pyelonephritis. Surrogate decision-maker: Mother CODE STATUS: Full code DVT prophylaxis: Subcu heparin Anticipated discharge date: Pending clinical course Anticipated discharge place: Pending clinical course A total of 55 minutes was spent on the care of this complex patient more than 50% of the time was spent in counseling and care coordination. Past Medical History Past Medical History: GERD/Reflux, Hypertension, Osteoarthritis (OA), Pneumonia, Renal Disease Additional Past Medical History / Comment(s): kidney stones/septic stone, environmental allergies, pneumonia aug 2021 post-op, herniated discs, occasional tachycardia, ileus History of Any Multi-Drug Resistant Organisms: ESBL Date of last positivie culture/infection: 07/14/23 MDRO Source:: urine Past Surgical History: Adenoidectomy, Bariatric Surgery, Section, Cholecystectomy, Hysterectomy, Joint Replacement, Orthopedic Surgery, Tonsillectomy Additional Past Surgical History / Comment(s): 08/09/23 cystoscopy with L lithotripsy/L stent removed, left knee replacement, arthroscopy right knee, lap band 16 yrs ago- no fluid in band per pt. surgery at [facility]), 03/23/22 trigger finger, KIDNEY STONE SX, gastric sleeve 10/11, ankle cyst removed as child samaria ureter stents Past Anesthesia/Blood Transfusion Reactions: Postoperative Nausea & Vomiting (PONV) Additional Past Anesthesia/Blood Transfusion Reaction / Comment(s): grandmother- difficulty waking up, slight fever one time but not ever told it was malignant hyperthermia Past Psychological History: Depression Smoking Status: Never smoker Past Alcohol Use History: None Reported Past Drug Use History: None Reported - Past Family History Mother Family Medical History: Cancer, Hypertension Medications and Allergies Home Medications Medication Instructions Recorded Confirmed Type Metoprolol Succinate (ER) [Toprol 150 mg PO BID 05/07/18 02/11/24 History XL] Pregabalin [Lyrica] 150 mg PO HS 04/21/20 02/11/24 History Vortioxetine Hydrobromide 20 mg PO HS 04/21/20 02/11/24 History [Trintellix] Zolpidem [Ambien] 10 mg PO HS 04/21/20 02/11/24 History ARIPiprazole [Abilify] 2 mg PO HS 03/10/21 02/11/24 History amLODIPine [Norvasc] 5 mg PO HS 03/10/21 02/11/24 History Cyclobenzaprine [Flexeril] 10 mg PO BID PRN 07/09/23 02/11/24 History DULoxetine HCL [Cymbalta] 60 mg PO HS 07/09/23 02/11/24 History cloNIDine HCL [Catapres] 0.1 mg PO HS 07/09/23 02/11/24 History Nitrofurantoin Monohyd/M-Cryst 100 mg PO Q12HR 01/17/24 02/11/24 History [Macrobid] Albuterol Inhaler [Ventolin Hfa 1 - 2 puff INHALATION RT-Q6H PRN 02/11/24 02/11/24 History Inhaler] Allergies Allergy/AdvReac Type Severity Reaction Status Date / Time ofloxacin [From Floxin] AdvReac Unknown Hallucinati Verified 02/11/24 16:36 ons SAI Inhibitors AdvReac ANGIOEDEMA Verified 02/11/24 16:36 bupropion [From Wellbutrin] AdvReac seizure Verified 02/11/24 16:36 venlafaxine [From Effexor] AdvReac seizure Verified 02/11/24 16:36 Physical Exam Vitals: Vital Signs Temp Pulse Resp BP Pulse Ox 02/11/24 16:30 80 20 140/80 98 02/11/24 12:54 98.9 F 82 16 170/100 98 Intake and Output 02/11/24 02/11/24 02/11/24 06:59 14:59 22:59 Other: Weight 112.491 kg Results CBC & Chem 7: 02/11/24 13:36 02/11/24 13:36 Labs: Abnormal Lab Results - Last 24 Hours (Table) 02/11/24 02/11/24 02/11/24 Range/Units 13:36 13:36 13:36 Hgb 11.1 L (11.4-16.0) gm/dL RDW 15.6 H (11.5-15.5) % Chloride 111 H (98-107) mmol/L Carbon Dioxide 21 L (22-30) mmol/L Glucose 105 H (74-99) mg/dL Alkaline Phosphatase 139 H (38-126) U/L Total Protein 6.2 L (6.3-8.2) g/dL Urine Appearance Cloudy H (Clear) Urine Protein Trace H (Negative) Ur Leukocyte Esterase Moderate H (Negative) Urine WBC 7 H (0-5) /hpf Urine Bacteria Rare H (None) /hpf Urine Mucus Rare H (None) /hpf
--- NOTE | 2024-02-11 18:16 | US ---
EXAMINATION TYPE: US kidneys/renal and bladder DATE OF EXAM: 02/11/2024 COMPARISON: CT 2023, US 2022 CLINICAL INDICATION: Female, 48 years old with history of pyelonephritis; EXAM MEASUREMENTS: Right Kidney: 12.4 x 6.1 x 5.7 cm Left Kidney: 10.9 x 5.0 x 4.9 cm Right Kidney: fullness of renal pelvis Left Kidney: 0.5cm echogenic focus mid pole, lobulated contour Bladder: not fully distended IMPRESSION: 1. Nonobstructing 0.5 cm left renal stone
[2024-02-11] MEDS: MORPHINE SULFATE 4 MG/ML SYRINGE IV PRN (19:16)
[2024-02-11] MEDS: cloNIDine HCL 0.1 MG TAB PO SCH (21:29)
[2024-02-11] MEDS: ZOLPIDEM 5 MG TAB PO SCH (21:29)
[2024-02-11] MEDS: amLODIPine 5 MG TAB PO SCH (21:29)
[2024-02-11] MEDS: METOPROLOL SUCCINATE (ER) 50 MG TAB.ER.24H PO SCH (21:29)
[2024-02-11] MEDS: PREGABALIN 75 MG CAP PO SCH (22:09)
[2024-02-12] MEDS: HEPARIN SODIUM,PORCINE 5,000 UNIT/ML 1 ML VIAL SQ SCH (00:28)
[2024-02-12] MEDS: PHENAZOPYRIDINE 100 MG TAB PO ONE (05:18)
[2024-02-12 08:11] LABS: Basophils # (A) 0.1 k/uL (0-0.2); Basophils % (A) 1 %; Eosinophils # (A) 0.4 k/uL (0-0.7); Eosinophils % (A) 6 %; HCT 34.6 % (34.0-46.0); HGB 10.7 gm/dL (11.4-16.0); Hypochromasia Slight; Lymphocytes # (A) 2.2 k/uL (1.0-4.8); Lymphocytes % (A) 33 %; MCH 25.1 pg (25.0-35.0); MCHC 30.9 g/dL (31.0-37.0); MCV 81.2 fL (80.0-100.0); Monocytes # (A) 0.4 k/uL (0-1.0); Monocytes % (A) 6 %; Neutrophils # (A) 3.5 k/uL (1.3-7.7); Neutrophils % (A) 52 %; Platelet Count 242 k/uL (150-450); RBC 4.26 m/uL (3.80-5.40); RDW 15.7 % (11.5-15.5); WBC 6.8 k/uL (3.8-10.6)
[2024-02-12 08:23] LABS: African American GFR (CKD) >90 (>60 ml/min/1.73 sqM); Anion Gap 6 mmol/L; Blood Urea Nitrogen 13 mg/dL (7-17); Carbon Dioxide 26 mmol/L (22-30); Chloride 108 mmol/L (98-107); Glucose 94 mg/dL (74-99); Non-African American GFR(CKD) >90 (>60 ml/min/1.73 sqM); Potassium 3.8 mmol/L (3.5-5.1); Sodium 140 mmol/L (137-145)
[2024-02-12] MEDS: ERTAPENEM 1 GM in SODIUM CHLORIDE 0.9% 50 ML IVPB SCH (09:59)
--- NOTE | 2024-02-12 10:57 | P.GSCN ---
History of Present Illness Consult date: 02/12/24 Reason for Consult: UTI, kidney stone Requesting physician: Som Coronel History of present illness: The patient is a 48-year-old white female well-known to our service. She has a history of recurrent urolithiasis. Most recently, she underwent bilateral ureteroscopy with laser lithotripsy and stent placement on January 18, [address] scan performed last week showed evidence of mild right hydroureteronephrosis with right periureteral stranding and a small left renal calculus. A urine culture obtained February 06, 2024 showed ESBL E. coli, an organism also seen on a urine culture last month. Following that urine culture, she was treated with a 30-day course of Macrobid. Review of Systems - Constitutional Reports chills, Denies fever - Gastrointestinal Reports nausea - Genitourinary Genitourinary: Reports dysuria, Reports flank pain, Reports kidney stones Past Medical History Past Medical History: GERD/Reflux, Hypertension, Osteoarthritis (OA), Pneumonia, Renal Disease Additional Past Medical History / Comment(s): kidney stones/septic stone, environmental allergies, pneumonia aug 2021 post-op, herniated discs, occasional tachycardia, ileus History of Any Multi-Drug Resistant Organisms: ESBL Year Discovered:: 01/17/24 MDRO Source:: urine Past Surgical History: Adenoidectomy, Bariatric Surgery, Section, Cholecystectomy, Hysterectomy, Joint Replacement, Orthopedic Surgery, Tonsillectomy Additional Past Surgical History / Comment(s): 08/09/23 cystoscopy with L lithotripsy/L stent removed, left knee replacement, arthroscopy right knee, lap band 16 yrs ago- no fluid in band per pt. surgery at [facility]), 03/23/22 trigger finger, KIDNEY STONE SX, gastric sleeve 10/11, ankle cyst removed as child, samaria ureter stents Past Anesthesia/Blood Transfusion Reactions: Postoperative Nausea & Vomiting (PONV) Additional Past Anesthesia/Blood Transfusion Reaction / Comm: grandmother- difficulty waking up, slight fever one time but not ever told it was malignant hyperthermia Past Psychological History: Depression Additional Psychological History / Comment(s): . Smoking Status: Never smoker Past Alcohol Use History: None Reported Past Drug Use History: None Reported - Past Family History Mother Family Medical History: Cancer, Hypertension Medications and Allergies Home Medications Medication Instructions Recorded Confirmed Type Metoprolol Succinate (ER) [Toprol 150 mg PO BID 05/07/18 02/11/24 History XL] Pregabalin [Lyrica] 150 mg PO HS 04/21/20 02/11/24 History Vortioxetine Hydrobromide 20 mg PO HS 04/21/20 02/11/24 History [Trintellix] Zolpidem [Ambien] 10 mg PO HS 04/21/20 02/11/24 History ARIPiprazole [Abilify] 2 mg PO HS 03/10/21 02/11/24 History amLODIPine [Norvasc] 5 mg PO HS 03/10/21 02/11/24 History Cyclobenzaprine [Flexeril] 10 mg PO BID PRN 07/09/23 02/11/24 History DULoxetine HCL [Cymbalta] 60 mg PO HS 07/09/23 02/11/24 History cloNIDine HCL [Catapres] 0.1 mg PO HS 07/09/23 02/11/24 History Nitrofurantoin Monohyd/M-Cryst 100 mg PO Q12HR 01/17/24 02/11/24 History [Macrobid] Albuterol Inhaler [Ventolin Hfa 1 - 2 puff INHALATION RT-Q6H PRN 02/11/24 02/11/24 History Inhaler] Allergies Allergy/AdvReac Type Severity Reaction Status Date / Time ofloxacin [From Floxin] AdvReac Unknown Hallucinati Verified 02/11/24 16:36 ons SAI Inhibitors AdvReac ANGIOEDEMA Verified 02/11/24 16:36 bupropion [From Wellbutrin] AdvReac seizure Verified 02/11/24 16:36 venlafaxine [From Effexor] AdvReac seizure Verified 02/11/24 16:36 Surgical - Exam Vital Signs Temp Pulse Resp BP Pulse Ox 98.9 F 82 16 170/100 98 02/11/24 12:54 02/11/24 12:54 02/11/24 12:54 02/11/24 12:54 02/11/24 12:54 - General well developed, well nourished, no distress - Respiratory normal respiratory effort - Abdomen Soft, mild bilateral CVA tenderness, non-distended, no mass. - Psychiatric oriented to time, oriented to person, oriented to place, speech is normal, memory intact Results - Labs 02/12/24 07:40 02/12/24 07:40 Abnormal Lab Results - Last 24 Hours (Table) 02/11/24 02/11/24 02/11/24 Range/Units 13:36 13:36 13:36 Hgb 11.1 L (11.4-16.0) gm/dL RDW 15.6 H (11.5-15.5) % Chloride 111 H (98-107) mmol/L Carbon Dioxide 21 L (22-30) mmol/L Glucose 105 H (74-99) mg/dL Alkaline Phosphatase 139 H (38-126) U/L Total Protein 6.2 L (6.3-8.2) g/dL Urine Appearance Cloudy H (Clear) Urine Protein Trace H (Negative) Ur Leukocyte Esterase Moderate H (Negative) Urine WBC 7 H (0-5) /hpf Urine Bacteria Rare H (None) /hpf Urine Mucus Rare H (None) /hpf Diabetes panel 02/11/24 Range/Units 13:36 Sodium 140 (137-145) mmol/L Potassium 3.9 (3.5-5.1) mmol/L Chloride 111 H (98-107) mmol/L Carbon Dioxide 21 L (22-30) mmol/L BUN 13 (7-17) mg/dL Creatinine 0.61 (0.52-1.04) mg/dL Glucose 105 H (74-99) mg/dL Calcium 9.2 (8.4-10.2) mg/dL AST 15 (14-36) U/L ALT 19 (4-34) U/L Alkaline Phosphatase 139 H (38-126) U/L Total Protein 6.2 L (6.3-8.2) g/dL Albumin 3.7 (3.5-5.0) g/dL Calcium panel 02/11/24 Range/Units 13:36 Calcium 9.2 (8.4-10.2) mg/dL Albumin 3.7 (3.5-5.0) g/dL Pituitary panel 02/11/24 Range/Units 13:36 Sodium 140 (137-145) mmol/L Potassium 3.9 (3.5-5.1) mmol/L Chloride 111 H (98-107) mmol/L Carbon Dioxide 21 L (22-30) mmol/L BUN 13 (7-17) mg/dL Creatinine 0.61 (0.52-1.04) mg/dL Glucose 105 H (74-99) mg/dL Calcium 9.2 (8.4-10.2) mg/dL Adrenal panel 02/11/24 Range/Units 13:36 Sodium 140 (137-145) mmol/L Potassium 3.9 (3.5-5.1) mmol/L Chloride 111 H (98-107) mmol/L Carbon Dioxide 21 L (22-30) mmol/L BUN 13 (7-17) mg/dL Creatinine 0.61 (0.52-1.04) mg/dL Glucose 105 H (74-99) mg/dL Calcium 9.2 (8.4-10.2) mg/dL Total Bilirubin 0.2 (0.2-1.3) mg/dL AST 15 (14-36) U/L ALT 19 (4-34) U/L Alkaline Phosphatase 139 H (38-126) U/L Total Protein 6.2 L (6.3-8.2) g/dL Albumin 3.7 (3.5-5.0) g/dL - Imaging CT scan - abdomen: report reviewed, image reviewed US - kidney/bladder: report reviewed Assessment and Plan (1) UTI due to extended-spectrum beta lactamase (ESBL) producing Escherichia coli Current Visit: Yes Status: Acute Code(s): N39.0 - URINARY TRACT INFECTION, SITE NOT SPECIFIED; B96.29 - OTH ESCHERICHIA COLI THE CAUSE OF DISEASES CLASSD ELSWHR; Z16.12 - EXTENDED SPECTRUM BETA LACTAMASE (ESBL) RESISTANCE SNOMED Code(s): 632781785 (2) Calculus of kidney Current Visit: Yes Status: Acute Code(s): N20.0 - CALCULUS OF KIDNEY SNOMED Code(s): 85585049 Plan: Continue ertapenem. No urologic intervention is warranted at this time. Would make arrangements for outpatient IV antibiotic therapy. Time with Patient: Greater than 30
[2024-02-12] MEDS: ONDANSETRON 4 MG/2 ML VIAL IVP PRN (11:57)
--- NOTE | 2024-02-12 12:35 | P.PN ---
Subjective Progress Note Date: 02/12/24 Hospital Course: 48-year-old female with a history of recurrent pyelonephritis, hypertension, d epression/anxiety, obesity, presenting with persistent dysuria, increased frequency, and flank pain. In the ED, temperature was 98.9, pulse 82, respiratory 16, saturating at 98% on room air, blood pressure 170/100. WBC 7.1, hemoglobin 11.1, platelet 285, bicarb 21, creatinine 0.61, urinalysis negative for nitrates, positive for moderate leukocyte esterase, 7 WBCs noted in urine. Her last abdomen pelvis CT from 02/05 showed nonobstructive nephrolithiasis previously seen in the inferior pole of right kidney no longer present with some new small subcentimeter changes identified in the right renal pelvis, nonobstructive nephrolithiasis in the inferior pole of the left kidney is no longer evident, similar segmental nonobstructing nephrolithiasis noted anteriorly in the inferior pole of the left kidney remains. There is no new right pelviectasis and mild right hydro ureteral nephrosis with minimal periureteral fat stranding, concerning for recently passed right ureteral stone versus pyelonephritis. Patient being admitted for suspected pyelonephritis with failed outpatient antibiotic therapy. Urology consulted, started on ertapenem. ID also consulted. Urology not recommending any interventions at the moment. Subjective: Patient seen and examined at bedside. No acute events overnight. Still having some flank pain, and dysuria. Pertinent positives and negatives as discussed above, a complete review of systems was performed and all other systems are negative. Vitals Signs Reviewed. General: nontoxic, no distress, appears at stated age, obese Derm: warm, dry Head: atraumatic, normocephalic, symmetric Eyes: EOMI, no lid lag, anicteric sclera, pupils equal round reactive to light ENT: Nose and ears atraumatic Neck: No thyromegaly, supple Mouth: no lip lesion, mucus membranes moist Cardiovascular: S1S2 reg, no murmur, no edema Lungs: clear to auscultation bilateral, no rhonchi, no rales, no wheeze, no accessory muscle use Abdominal: soft, nontender to palpation, no guarding, no appreciable organomegaly : CVA tenderness bilateral Ext: no gross muscle atrophy, muscle strength muscle strength 5 out of 5 in all 4 extremities, no contractures Neuro: CN II-XII grossly intact Psych: Alert, oriented, appropriate affect Data Reviewed Today: Pertinent Labs: WBC 6.8, hemoglobin 10.7, bicarb 26, creatinine 0.67 Imaging: Renal ultrasound shows nonobstructing 0.5 cm left renal stone Assessment and Plan: Active: Acute on chronic pyelonephritis History of recurrent renal stones History of MDRO UTI -Continue ertapenem 1 g IV daily, ID consulted -Urine cultures pending -Urology note reviewed, no interventions planned -Pain control with oral Tylenol as needed, oral Motrin as needed, IV Toradol as needed, IV morphine as needed, monitor for sedation -Zofran 4 mg IV every 8 hours for nausea vomiting Chronic: Hypertension Anxiety/depression DVT ppx: Subcu heparin Code status: Full code Anticipated discharge place: Pending clinical course Anticipated discharge time: Pending clinical course Objective - Vital Signs Vital signs: Vital Signs Temp 98.2 F 02/12/24 06:40 Pulse 72 02/12/24 06:40 Resp 18 02/12/24 06:40 BP 126/77 02/12/24 06:40 Pulse Ox 96 02/12/24 06:40 FiO2 Intake & Output 02/11/24 02/12/24 02/12/24 18:59 06:59 18:59 Output Total 200 Balance -200 Weight 112.491 kg 112.491 kg Output: Urine 200 Other: # Voids 1 - Labs CBC & Chem 7: 02/12/24 07:40 02/12/24 07:40 Labs: Abnormal Lab Results - Last 24 Hours (Table) 02/11/24 02/11/24 02/11/24 Range/Units 13:36 13:36 13:36 Hgb 11.1 L (11.4-16.0) gm/dL MCHC (31.0-37.0) g/dL RDW 15.6 H (11.5-15.5) % Chloride 111 H (98-107) mmol/L Carbon Dioxide 21 L (22-30) mmol/L Glucose 105 H (74-99) mg/dL Alkaline Phosphatase 139 H (38-126) U/L Total Protein 6.2 L (6.3-8.2) g/dL Urine Appearance Cloudy H (Clear) Urine Protein Trace H (Negative) Ur Leukocyte Esterase Moderate H (Negative) Urine WBC 7 H (0-5) /hpf Urine Bacteria Rare H (None) /hpf Urine Mucus Rare H (None) /hpf 02/12/24 02/12/24 Range/Units 07:40 07:40 Hgb 10.7 L (11.4-16.0) gm/dL MCHC 30.9 L (31.0-37.0) g/dL RDW 15.7 H (11.5-15.5) % Chloride 108 H (98-107) mmol/L Carbon Dioxide (22-30) mmol/L Glucose (74-99) mg/dL Alkaline Phosphatase (38-126) U/L Total Protein (6.3-8.2) g/dL Urine Appearance (Clear) Urine Protein (Negative) Ur Leukocyte Esterase (Negative) Urine WBC (0-5) /hpf Urine Bacteria (None) /hpf Urine Mucus (None) /hpf
[2024-02-12] MEDS: IBUPROFEN 400 MG TAB PO PRN (16:33)
[2024-02-13 02:08] VITALS: RESP 16
--- NOTE | 2024-02-13 07:44 | P.CONS ---
History of Present Illness - Reason for Consult Consult date: 02/12/24 MDRO E. coli UTI Requesting physician: Som Coronel - Chief Complaint Right flank pain nausea vomiting x few days - History of Present Illness Patient is a 48-year-old female with past medical history significant for hypertension osteoarthritis pneumonia reflux and did have a history of kidney stone and recurrent UTI patient recently did have a cystoscopy and laser lithotripsy did have a UTI that has been treated with a month course of Macrobid and recently treated with the Cipro however urine cultures obtained on 02/06/2024 came back positive with ESBL that has been resistant to Cipro Levaquin and Bactrim though sensitive to Macrobid patient presenting to [facility] for evaluation of bilateral flank pain and dysuria patient describing the pain mostly to the right flank area describing it to be dull aching to show Home moderate intensity without any radiation did have some burning of urine but no hematuria patient did have some chills but no high-grade fever have been recorded on presentation to the hospital the patient was afebrile patient was not tachycardic hypotensive or hypoxic did have a white count of 7.1 creatinine 0.61 urine has been positive cultures currently pending abdominal pelvic ultrasound nonobstructing 0.5 cm left renal stone patient has been started on ertapenem, infectious disease was consulted for further management of antibiotic therapy Review of Systems Positive point and negatives has been mentioned in the HPI, complete review of systems was performed and all other systems are negative Past Medical History Past Medical History: GERD/Reflux, Hypertension, Osteoarthritis (OA), Pneumonia, Renal Disease Additional Past Medical History / Comment(s): kidney stones/septic stone, environmental allergies, pneumonia aug 2021 post-op, herniated discs, occasional tachycardia, ileus History of Any Multi-Drug Resistant Organisms: ESBL Year Discovered:: 01/17/24 MDRO Source:: urine Past Surgical History: Adenoidectomy, Bariatric Surgery, Section, Cholecystectomy, Hysterectomy, Joint Replacement, Orthopedic Surgery, Tonsillectomy Additional Past Surgical History / Comment(s): 08/09/23 cystoscopy with L lithotripsy/L stent removed, left knee replacement, arthroscopy right knee, lap band 16 yrs ago- no fluid in band per pt. surgery at [facility]), 03/23/22 trigger finger, KIDNEY STONE SX, gastric sleeve 10/11, ankle cyst removed as child, samaria ureter stents Past Anesthesia/Blood Transfusion Reactions: Postoperative Nausea & Vomiting (PONV) Additional Past Anesthesia/Blood Transfusion Reaction / Comm: grandmother-difficulty waking up, slight fever one time but not ever told it was malignant hyperthermia Past Psychological History: Depression Additional Psychological History / Comment(s): . Smoking Status: Never smoker Past Alcohol Use History: None Reported Past Drug Use History: None Reported - Past Family History Mother Family Medical History: Cancer, Hypertension Medications and Allergies Home Medications Medication Instructions Recorded Confirmed Type Metoprolol Succinate (ER) [Toprol 150 mg PO BID 05/07/18 02/11/24 History XL] Pregabalin [Lyrica] 150 mg PO HS 04/21/20 02/11/24 History Vortioxetine Hydrobromide 20 mg PO HS 04/21/20 02/11/24 History [Trintellix] Zolpidem [Ambien] 10 mg PO HS 04/21/20 02/11/24 History ARIPiprazole [Abilify] 2 mg PO HS 03/10/21 02/11/24 History amLODIPine [Norvasc] 5 mg PO HS 03/10/21 02/11/24 History Cyclobenzaprine [Flexeril] 10 mg PO BID PRN 07/09/23 02/11/24 History DULoxetine HCL [Cymbalta] 60 mg PO HS 07/09/23 02/11/24 History cloNIDine HCL [Catapres] 0.1 mg PO HS 07/09/23 02/11/24 History Albuterol Inhaler [Ventolin Hfa 1 - 2 puff INHALATION RT-Q6H PRN 02/11/24 02/11/24 History Inhaler] Ertapenem [INVanz] 1 gm IVPB DAILY 12 Days each 02/13/24 Rx Sennosides [Senokot] 8.6 mg PO BID PRN #30 tab 02/13/24 Rx Allergies Allergy/AdvReac Type Severity Reaction Status Date / Time ofloxacin [From Floxin] AdvReac Unknown Hallucinati Verified 02/11/24 16:36 ons SAI Inhibitors AdvReac ANGIOEDEMA Verified 02/11/24 16:36 bupropion [From Wellbutrin] AdvReac seizure Verified 02/11/24 16:36 venlafaxine [From Effexor] AdvReac seizure Verified 02/11/24 16:36 Physical Exam Vitals: Vital Signs Temp Pulse Pulse Resp BP BP Pulse Ox 02/12/24 12:49 98.7 F 66 16 108/71 94 L 02/12/24 06:40 98.2 F 72 18 126/77 96 02/12/24 01:13 98.4 F 75 18 125/79 98 02/11/24 20:23 98.1 F 84 18 133/81 98 02/11/24 19:18 100 18 141/88 98 02/11/24 16:30 80 20 140/80 98 Intake and Output 02/12/24 02/12/24 02/12/24 06:59 14:59 22:59 Other: # Voids 1 2 GENERAL DESCRIPTION: Middle-aged female lying in bed, no distress. No tachypnea or accessory muscle of respiration use. HEENT: Shows Pallor , no scleral icterus. Oral mucous membrane is dry. NECK: Trachea central, no thyromegaly. LUNGS: Unlabored breathing. Clear to auscultation anteriorly. No wheeze or crackle. HEART: S1, S2, regular rate and rhythm. No loud murmur ABDOMEN: Soft, no tenderness , EXTREMITIES: No edema of feet. SKIN: No rash, no masses palpable. NEUROLOGICAL: The patient is awake, alert, oriented x3, mood and affect normal. Results CBC & Chem 7: 02/12/24 07:40 02/12/24 07:40 Labs: Abnormal Lab Results - Last 24 Hours (Table) 02/12/24 02/12/24 Range/Units 07:40 07:40 Hgb 10.7 L (11.4-16.0) gm/dL MCHC 30.9 L (31.0-37.0) g/dL RDW 15.7 H (11.5-15.5) % Chloride 108 H (98-107) mmol/L Assessment and Plan (1) ESBL (extended spectrum beta-lactamase) producing bacteria infection Status: Acute Code(s): A49.9 - BACTERIAL INFECTION, UNSPECIFIED; Z16.12 - EXTENDED SPECTRUM BETA LACTAMASE (ESBL) RESISTANCE SNOMED Code(s): 034116209 (2) Pyelonephritis Status: Acute Code(s): N12 - TUBULO-INTERSTITIAL NEPHRITIS, NOT SPCF ACUTE OR CHRONIC SNOMED Code(s): 55843478 Plan: 1patient presented to hospital with flank pain urinary symptoms positive UA and this patient has been recently diagnosed with a pyelonephritis with urine culture showing ESBL E. coli that was resistant to Cipro but the patient has been treated with also resistant to Bactrim DS 2-ertapenem 1 g daily to continue 3-we will obtain a midline and plan for at least total of 2-week course of Invanz counting the days the patient received antibiotic here in the hospital. We will follow on clinical condition and cultures to further adjust medication if needed Thank you for this consultation we will follow the patient along with you Dictation was produced using [employer] dictation software. please excuse any grammatical, word or spelling errors. Time with Patient: Greater than 30
[2024-02-13 07:52] VITALS: TEMP 98.4
[2024-02-13] MEDS: SENNOSIDES 8.6 MG TAB PO PRN (11:03)
[2024-02-13 12:45] VITALS: BP 127/87; PULSE 66
--- NOTE | 2024-02-13 13:29 | P.DS ---
Providers Date of admission: 02/11/24 16:13 Expected date of discharge: 02/13/24 Attending physician: Som Coronel MD Consults: 02/11/24 17:37 Consult Physician Routine Consulting Provider: Fam Berry Consult Reason/Comments: recurrent stones, pyelonephritis Do you want consulting provider notified?: Yes 02/12/24 10:45 Consult Physician Routine Consulting Provider: Taye Motley Consult Reason/Comments: MDRO e. coli UTI Do you want consulting provider notified?: Yes Primary care physician: [facility] Course: Discharge Diagnosis: Acute on chronic pyelonephritis History of recurrent renal stones History of MDRO UTI Hypertension Anxiety/depression Hospital Course: 48-year-old female with a history of recurrent pyelonephritis, hypertension, depression/anxiety, obesity, presenting with persistent dysuria, increased frequency, and flank pain. In the ED, temperature was 98.9, pulse 82, respiratory 16, saturating at 98% on room air, blood pressure 170/100. WBC 7.1, hemoglobin 11.1, platelet 285, bicarb 21, creatinine 0.61, urinalysis negative for nitrates, positive for moderate leukocyte esterase, 7 WBCs noted in urine. Her last abdomen pelvis CT from 02/05 showed nonobstructive nephrolithiasis previously seen in the inferior pole of right kidney no longer present with some new small subcentimeter changes identified in the right renal pelvis, nonobstructive nephrolithiasis in the inferior pole of the left kidney is no longer evident, similar segmental nonobstructing nephrolithiasis noted anteriorly in the inferior pole of the left kidney remains. There is no new right pelviectasis and mild right hydro ureteral nephrosis with minimal periureteral fat stranding, concerning for recently passed right ureteral stone versus pyelonephritis. Patient being admitted for suspected pyelonephritis with failed outpatient antibiotic therapy. Urology consulted, not recommending any interventions at the moment. Started on ertapenem due to history of MDRO E. coli. ID also consulted. Patient being discharged on IV ertapenem for 12 days. Patient seen and examined at bedside. Vital signs reviewed and stable. General: Nontoxic, no distress, appears at stated age, morbidly obese Derm: Warm, dry Head: Atraumatic, normocephalic, symmetric Eyes: EOMI, no lid lag, anicteric sclera Mouth: No lip lesion, mucus membranes moist Cardiovascular: S1S2 reg, no murmur Lungs: CTA bilateral, no rhonchi, no rales, no accessory muscle use Abdominal: Soft, nontender to palpation, no guarding, no appreciable organomegaly Ext: No gross muscle atrophy, no edema, no contractures Neuro: CN II-XI grossly intact, no focal neuro deficits Psych: Alert, oriented, appropriate affect A total of 36 minutes of time were spent preparing this complex discharge summary. Patient was discharged on 02/13/2024 at 1327. Patient Condition at Discharge: Stable Plan - Discharge Summary New Discharge Prescriptions: New Ertapenem [INVanz] 1 gm IVPB DAILY 12 Days each Sennosides [Senokot] 8.6 mg PO BID PRN #30 tab PRN Reason: Constipation Continue Metoprolol Succinate (ER) [Toprol XL] 150 mg PO BID Zolpidem [Ambien] 10 mg PO HS Vortioxetine Hydrobromide [Trintellix] 20 mg PO HS Pregabalin [Lyrica] 150 mg PO HS ARIPiprazole [Abilify] 2 mg PO HS amLODIPine [Norvasc] 5 mg PO HS cloNIDine HCL [Catapres] 0.1 mg PO HS DULoxetine HCL [Cymbalta] 60 mg PO HS Cyclobenzaprine [Flexeril] 10 mg PO BID PRN PRN Reason: Muscle Spasm Albuterol Inhaler [Ventolin Hfa Inhaler] 1 - 2 puff INHALATION RT-Q6H PRN PRN Reason: Shortness Of Breath Discontinued Nitrofurantoin Monohyd/M-Cryst [Macrobid] 100 mg PO Q12HR Discharge Medication List Metoprolol Succinate (ER) [Toprol XL] 150 mg PO BID 05/07/18 [History] Pregabalin [Lyrica] 150 mg PO HS 04/21/20 [History] Vortioxetine Hydrobromide [Trintellix] 20 mg PO HS 04/21/20 [History] Zolpidem [Ambien] 10 mg PO HS 04/21/20 [History] ARIPiprazole [Abilify] 2 mg PO HS 03/10/21 [History] amLODIPine [Norvasc] 5 mg PO HS 03/10/21 [History] Cyclobenzaprine [Flexeril] 10 mg PO BID PRN 07/09/23 [History] DULoxetine HCL [Cymbalta] 60 mg PO HS 07/09/23 [History] cloNIDine HCL [Catapres] 0.1 mg PO HS 07/09/23 [History] Albuterol Inhaler [Ventolin Hfa Inhaler] 1 - 2 puff INHALATION RT-Q6H PRN 02/11/24 [History] Ertapenem [INVanz] 1 gm IVPB DAILY 12 Days each 02/13/24 [Rx] Sennosides [Senokot] 8.6 mg PO BID PRN #30 tab 02/13/24 [Rx] Follow up Appointment(s)/Referral(s): Rosa Stewart MD [Primary Care Provider] - [facility] - [facility], [REFERRING] - 1 Week Taye Motley MD [STAFF PHYSICIAN] - 2 Weeks Patient Instructions/Handouts: Kidney Infection (DC) Activity/Diet/Wound Care/Special Instructions: Please see your PCP and ID. Discharge Disposition: HOME WITH HOME HEALTH SERVICES
--- NOTE | 2024-02-13 17:14 | P.PN ---
Subjective Progress Note Date: 02/13/24 Principal diagnosis: Reason for follow-up is ESBL E. coli pyelonephritis Patient is a 48-year-old female with past medical history significant for hypertension osteoarthritis pneumonia reflux and did have a history of kidney stone and recurrent UTI patient presenting to the hospital with flank pain recent outpatient culture positive for ESBL E. coli failing outpatient oral Cipro therapy. On today's evaluation that is 02/13/2024, patient has been afebrile, patient is breathing comfortably and is currently on room air, patient denies having any significant cough no chest pain shortness of breath, patient denies nausea vomiting or diarrhea and no abdominal pain New labs were drawn today. Objective - Vital Signs Vital signs: Vital Signs Temp 98.4 F 02/13/24 12:19 Pulse 66 02/13/24 12:19 Resp 16 02/13/24 12:19 BP 127/87 02/13/24 12:19 Pulse Ox 99 02/13/24 12:19 FiO2 Intake & Output 02/12/24 02/13/24 02/13/24 18:59 06:59 18:59 Intake Total 600 Balance 600 Intake: Oral 600 Other: Voiding Method Toilet # Voids 2 2 - Exam GENERAL DESCRIPTION: Middle-aged female lying in bed in no distress RESPIRATORY SYSTEM: Unlabored breathing , decreased breath sounds at bases HEART: S1 S2 regular rate and rhythm , ABDOMEN: Soft , no tenderness EXTREMITIES: No edema feet - Labs CBC & Chem 7: 02/12/24 07:40 02/12/24 07:40 Labs: Microbiology - Last 24 Hours (Table) 02/11/24 20:16 Urine Culture - Final Urine,Clean Catch Assessment and Plan (1) Pyelonephritis Status: Acute Code(s): N12 - TUBULO-INTERSTITIAL NEPHRITIS, NOT SPCF ACUTE OR CHRONIC SNOMED Code(s): 11405850 (2) UTI due to extended-spectrum beta lactamase (ESBL) producing Escherichia coli Status: Acute Code(s): N39.0 - URINARY TRACT INFECTION, SITE NOT SPECIFIED; B96.29 - OTH ESCHERICHIA COLI THE CAUSE OF DISEASES CLASSD ELSWHR; Z16.12 - EXTENDED SPECTRUM BETA LACTAMASE (ESBL) RESISTANCE SNOMED Code(s): 705203438 Plan: 1patient presented to hospital with flank pain urinary symptoms positive UA and this patient has been recently diagnosed with a pyelonephritis with urine culture showing ESBL E. coli that was resistant to Cipro but the patient has been treated with also resistant to Bactrim DS 2-patient did get a midline plan is to continue with ertapenem 1 g daily to finish 2-week course repeat close outpatient follow-up discussed with the admitting physician prescription provided to the disease case manager rn Dictation was produced using [employer] dictation software. please excuse any grammatical, word or spelling errors. Time with Patient: Less than 30
== END 2024-02-13 16:12 | disposition home health service (06) | DRG 690 ==
LOC: EC 12:31 → 5NMEDONC 16:13
PROVIDERS: ADMIT Student in an Organized Health Care Education/Training Program; ATTEND Student in an Organized Health Care Education/Training Program
PROC: 05HF33Z Insertion of Infusion Device into Left Cephalic Vein, Percutaneous Approach (ICD-10-PCS; principal; 2024-02-13 13:30)
DX: N13.6 Pyonephrosis (principal); Z16.12 Extended spectrum beta lactamase (ESBL) resistance; Z16.24 Resistance to multiple antibiotics; Z16.29 Resistance to other single specified antibiotic; M19.90 Unspecified osteoarthritis, unspecified site; Z82.49 Family history of ischemic heart disease and other diseases of the circulatory system; F32.A Depression, unspecified; F41.9 Anxiety disorder, unspecified; I10 Essential (primary) hypertension; K21.9 Gastro-esophageal reflux disease without esophagitis; Z87.440 Personal history of urinary (tract) infections; Z87.442 Personal history of urinary calculi; Z90.710 Acquired absence of both cervix and uterus; Z96.652 Presence of left artificial knee joint; B96.20 Unspecified Escherichia coli [E. coli] as the cause of diseases classified elsewhere; Z87.01 Personal history of pneumonia (recurrent); Z90.49 Acquired absence of other specified parts of digestive tract; Z98.84 Bariatric surgery status
CPT/HCPCS: 36410; 36415; 76770; 76937; 80048; 80053; 81001; 82150; 83605; 83690; 85025; 87086; 96361; 96365; 96366; 96375; 99285

== ENCOUNTER 2024-03-31 04:12 | Inpatient (IN) | payer MEDICAID ==
[2024-03-31 04:46] LABS: Basophils % (A) 0 %; Eosinophils # (A) 0.3 k/uL (0-0.7); Eosinophils % (A) 4 %; HCT 36.7 % (34.0-46.0); HGB 11.6 gm/dL (11.4-16.0); Hypochromasia Slight; Lymphocytes # (A) 2.4 k/uL (1.0-4.8); Lymphocytes % (A) 30 %; MCH 25.7 pg (25.0-35.0); MCHC 31.6 g/dL (31.0-37.0); MCV 81.3 fL (80.0-100.0); Mean Platelet Volume 8.7; Monocytes # (A) 0.4 k/uL (0-1.0); Monocytes % (A) 5 %; Neutrophils # (A) 4.5 k/uL (1.3-7.7); Neutrophils % (A) 57 %; Platelet Count 254 k/uL (150-450); RBC 4.51 m/uL (3.80-5.40); RDW 15.8 % (11.5-15.5); WBC 7.8 k/uL (3.8-10.6)
[2024-03-31 04:51] LABS: Appearance,Urine Cloudy (Clear); Bilirubin,Urine Negative (Negative); Blood,Urine Large (Negative); Calcium Oxalate Crystals,Urine Many /hpf; Color,Urine Yellow; Glucose,Urine (UA) Trace (Negative); Hyaline Casts,Urine 16 /lpf (0-2); Ketones,Urine Trace (Negative); Leukocyte Esterase,Urine Moderate (Negative); Mucus,Urine Occasional /hpf; Nitrite,Urine Negative (Negative); Protein,Urine 1+ (Negative); RBC,Urine >182 /hpf (0-5); Specific Gravity,Urine 1.023 (1.001-1.035); Squamous Epithelial Cell,Urine 7 /hpf (0-4); WBC,Urine 59 /hpf (0-5)
--- NOTE | 2024-03-31 04:56 | ED ---
General Adult HPI - General Chief complaint: Urogenital Stated complaint: Kidney infection Time Seen by Provider: 03/31/24 04:20 Source: patient Mode of arrival: ambulatory Limitations: no limitations - History of Present Illness Initial comments: Dictation was produced using [employer] dictation software. please excuse any grammatical, word or spelling errors. Chief Complaint: 48-year-old female presents emergency department with back pain History of Present Illness: Patient 48-year-old female she has past medical history of ESBL presents to the ER for back pain. Patient has recently completed antibiotic treatment. Patient states that she gets serious urine infections. She follows up with infectious disease. Patient feels a little chills but denies any fevers. Started having back pain for the last couple days. She was told to seek emergency medical attention if she started to have recurrence of symptoms. Patient denies any dysuria. The ROS documented in this emergency department record has been reviewed and confirmed by me. Those systems with pertinent positive or negative responses have been documented in the HPI. All other systems are other negative and/or noncontributory. - Related Data Home Medications Medication Instructions Recorded Confirmed Metoprolol Succinate (ER) [Toprol 150 mg PO BID 05/07/18 02/11/24 XL] Pregabalin [Lyrica] 150 mg PO HS 04/21/20 02/11/24 Vortioxetine Hydrobromide 20 mg PO HS 04/21/20 02/11/24 [Trintellix] Zolpidem [Ambien] 10 mg PO HS 04/21/20 02/11/24 ARIPiprazole [Abilify] 2 mg PO HS 03/10/21 02/11/24 amLODIPine [Norvasc] 5 mg PO HS 03/10/21 02/11/24 Cyclobenzaprine [Flexeril] 10 mg PO BID PRN 07/09/23 02/11/24 DULoxetine HCL [Cymbalta] 60 mg PO HS 07/09/23 02/11/24 cloNIDine HCL [Catapres] 0.1 mg PO HS 07/09/23 02/11/24 Albuterol Inhaler [Ventolin Hfa 1 - 2 puff INHALATION RT-Q6H PRN 02/11/24 02/11/24 Inhaler] Previous Rx's Medication Instructions Recorded Ertapenem [INVanz] 1 gm IVPB DAILY 12 Days each 02/13/24 Sennosides [Senokot] 8.6 mg PO BID PRN #30 tab 02/13/24 Allergies Allergy/AdvReac Type Severity Reaction Status Date / Time ofloxacin [From Floxin] AdvReac Unknown Hallucinati Verified 03/31/24 04:17 ons SAI Inhibitors AdvReac ANGIOEDEMA Verified 03/31/24 04:17 bupropion [From Wellbutrin] AdvReac seizure Verified 03/31/24 04:17 venlafaxine [From Effexor] AdvReac seizure Verified 03/31/24 04:17 Review of Systems ROS Statement: Those systems with pertinent positive or pertinent negative responses have been documented in the HPI. ROS Other: All systems not noted in ROS Statement are negative. Past Medical History Past Medical History: GERD/Reflux, Hypertension, Osteoarthritis (OA), Pneumonia, Renal Disease Additional Past Medical History / Comment(s): kidney stones/septic stone, environmental allergies, pneumonia aug 2021 post-op, herniated discs, occasional tachycardia, ileus History of Any Multi-Drug Resistant Organisms: ESBL Date of last positivie culture/infection: 01/17/24 MDRO Source:: urine Past Surgical History: Adenoidectomy, Bariatric Surgery, Section, Cholecystectomy, Hysterectomy, Joint Replacement, Orthopedic Surgery, Tonsill ectomy Additional Past Surgical History / Comment(s): 08/09/23 cystoscopy with L lithotripsy/L stent removed, left knee replacement, arthroscopy right knee, lap band 16 yrs ago- no fluid in band per pt. surgery at [facility]), 03/23/22 trigger finger, KIDNEY STONE SX, gastric sleeve 10/11, ankle cyst removed as child, samaria ureter stents Past Anesthesia/Blood Transfusion Reactions: Postoperative Nausea & Vomiting (PONV) Additional Past Anesthesia/Blood Transfusion Reaction / Comment(s): grandmother- difficulty waking up, slight fever one time but not ever told it was malignant hyperthermia Past Psychological History: Depression Smoking Status: Never smoker Past Alcohol Use History: None Reported Past Drug Use History: None Reported - Past Family History Mother Family Medical History: Cancer, Hypertension General Exam - General Exam Comments Initial Comments: PHYSICAL EXAM: General Impression: Alert and oriented x3, not in acute distress HEENT: Normocephalic atraumatic, extra-ocular movements intact, pupils equal and reactive to light bilaterally, mucous membranes moist. Cardiovascular: Heart regular rate and rhythm Chest: Able to complete full sentences, no retractions, no tachypnea Abdomen: abdomen soft, non-tender, non-distended, no organomegaly Musculoskeletal: Pulses present and equal in all extremities, no peripheral edema, positive CVA pain Motor: no focal deficits noted Neurological: CN II-XII grossly intact, no focal motor or sensory deficits noted Skin: Intact with no visualized rashes Psych: Normal affect and mood Limitations: no limitations Course Vital Signs 03/31/24 04:16 Temperature 98.5 F Pulse Rate 95 Respiratory 18 Rate Blood Pressure 142/91 O2 Sat by Pulse 97 Oximetry Medical Decision Making - Medical Decision Making Was pt. sent in by a medical professional or institution (DAR Rocha, TRAIN STATION AGENT, urgent care, hospital, or detention...) When possible be specific @ -No Did you speak to anyone other than the patient for history (EMS, parent, family, police, friend...)? What history was obtained from this source @ -No Did you review nursing and triage notes (agree or disagree)? Why? @ -I reviewed and agree with nursing and triage notes Were old charts reviewed (outside hosp., previous admission, EMS record, old EKG, old radiological studies, urgent care reports/EKG's, detention records)? Report findings @ -Previous microbiology results reviewed showing positivity to ESBL with sensitivity to ertapenem Differential Diagnosis (chest pain, altered mental status, abdominal pain women, abdominal pain men, vaginal bleeding, musculoskeletal, weakness, fever, dyspnea, syncope, headache, dizziness, GI bleed, back pain, seizure, CVA, palpatations, mental health)? @ -Differential Back Pain: Strain, zoster, cauda equina syndrome, epidural abscess, vertebral osteomyelitis, discitis, fracture, subluxation, disc herniation, DJD, spinal stenosis, dissection, AAA, pancreatitis, peptic ulcer disease, pyelonephritis, kidney stone, this is not meant to be an all-inclusive list. EKG interpreted by me (3pts min.). @ -None done X-rays interpreted by me (1pt min.). @ -None done CT interpreted by me (1pt min.). @ -None done U/S interpreted by me (1pt. min.). @ -None done What testing was considered but not performed or refused? (CT, X-rays, U/S, labs)? Why? @ -None What meds were considered but not given or refused? Why? @ -None Was smoking cessation discussed for >3mins.? @ -No Were there social determinants of health that impacted care today? How? (Homelessness, low income, unemployed, alcoholism, drug addiction, transportation, low edu. Level, literacy, decrease access to med. care, custodial, rehab)? @ -No Was there de-escalation of care discussed even if they declined (Discuss DNR or withdrawal of care, Hospice)? DNR status @ -No What co-morbidities impacted this encounter? (DM, HTN, Smoking, COPD, CAD, Cancer, CVA, ARF, Chemo, Hep., AIDS, mental health diagnosis, sleep apnea, morbid obesity)? @ -None Was patient admitted / discharged? Hospital course, mention meds given and route , prescriptions, significant lab abnormalities, going to OR and other pertinent info. @ -48-year-old female with history of ESBL presents to the emergency department for back pain that is classic for her usual UTI symptoms. Vital signs upon arrival are within acceptable limits. Laboratory evaluation obtained. CBC metabolic panel is unremarkable. Urinalysis shows UTI. Patient has history of ESBL. Patient given 1 g of ertapenem. Will be admitted with consultation to infectious disease. Did you discuss the management of the patient with other professionals (professionals i.e. , PA, TRAIN STATION AGENT, lab, RT, psych nurse, child welfare social worker, real estate lawyer, teacher, classifications officer cc/cm, mental health case manager)? Give summary @ -Case discussed with hospitalist for admission Was critical care preformed (if so, how long)? @ -No Undiagnosed new problem with uncertain prognosis? @ -No Drug Therapy requiring intensive monitoring for toxicity (Heparin, Nitro, Insulin, Cardizem)? @ -No Were any procedures done? @ -No Diagnosis/symptom? Acute, or Chronic, or Acute on Chronic? Uncomplicated (without systemic symptoms) or Complicated (systemic symptoms)? @ -UTI, history of ESBL Side effects of treatment? @ -No Exacerbation, Progression, or Severe Exacerbation? @ -No Poses a threat to life or bodily function? How? (Chest pain, [place], [place], pneumonia, PE, COPD, DKA, ARF, appy, cholecystitis, CVA, Diverticulitis, Homicidal, Suicidal, threat to staff... and all critical care pts) @ -yes - Lab Data Result diagrams: 03/31/24 04:29 03/31/24 04:29 Lab Results 03/31/24 03/31/24 03/31/24 Range/Units 04:24 04:29 04:29 WBC 7.8 (3.8-10.6) k/uL RBC 4.51 (3.80-5.40) m/uL Hgb 11.6 (11.4-16.0) gm/dL Hct 36.7 (34.0-46.0) % MCV 81.3 (80.0-100.0) fL MCH 25.7 (25.0-35.0) pg MCHC 31.6 (31.0-37.0) g/dL RDW 15.8 H (11.5-15.5) % Plt Count 254 (150-450) k/uL MPV 8.7 Neutrophils % 57 % Lymphocytes % 30 % Monocytes % 5 % Eosinophils % 4 % Basophils % 0 % Neutrophils # 4.5 (1.3-7.7) k/uL Lymphocytes # 2.4 (1.0-4.8) k/uL Monocytes # 0.4 (0-1.0) k/uL Eosinophils # 0.3 (0-0.7) k/uL Basophils # 0.0 (0-0.2) k/uL Hypochromasia Slight Sodium 139 (137-145) mmol/L Potassium 4.4 (3.5-5.1) mmol/L Chloride 110 H (98-107) mmol/L Carbon Dioxide 21 L (22-30) mmol/L Anion Gap 8 mmol/L BUN 13 (7-17) mg/dL Creatinine 0.66 (0.52-1.04) mg/dL Est GFR (CKD-EPI)AfAm >90 (>60 ml/min/1.73 sqM) Est GFR (CKD-EPI)NonAf >90 (>60 ml/min/1.73 sqM) Glucose 160 H (74-99) mg/dL Calcium 8.9 (8.4-10.2) mg/dL Urine Color Yellow Urine Appearance Cloudy H (Clear) Urine pH 6.0 (5.0-8.0) Ur Specific [place] 1.023 (1.001-1.035) Urine Protein 1+ H (Negative) Urine Glucose (UA) Trace H (Negative) Urine Ketones Trace H (Negative) Urine Blood Large H (Negative) Urine Nitrite Negative (Negative) Urine Bilirubin Negative (Negative) Urine Urobilinogen 3.0 (<2.0) mg/dL Ur Leukocyte Esterase Moderate H (Negative) Urine RBC >182 H (0-5) /hpf Urine WBC 59 H (0-5) /hpf Ur Squamous Epith Cells 7 H (0-4) /hpf Calcium Oxalate Crystal Many H (None) /hpf Hyaline Casts 16 H (0-2) /lpf Urine Mucus Occasional H (None) /hpf Disposition Clinical Impression: UTI (urinary tract infection) Disposition: ADMITTED IP TO THIS HOSP Condition: Fair Referrals: Rosa Stewart MD [Primary Care Provider] - 1-2 days Decision Time: 05:29
[2024-03-31 05:01] LABS: African American GFR (CKD) >90 (>60 ml/min/1.73 sqM); Anion Gap 8 mmol/L; Blood Urea Nitrogen 13 mg/dL (7-17); Calcium 8.9 mg/dL (8.4-10.2); Carbon Dioxide 21 mmol/L (22-30); Chloride 110 mmol/L (98-107); Glucose 160 mg/dL (74-99); Non-African American GFR(CKD) >90 (>60 ml/min/1.73 sqM); Potassium 4.4 mmol/L (3.5-5.1); Sodium 139 mmol/L (137-145)
[2024-03-31] MEDS ORDERED: NALOXONE 0.4 MG/ML 1 ML VIAL IV PRN (05:26)
[2024-03-31] MEDS: ERTAPENEM 1 GM in SODIUM CHLORIDE 0.9% 50 ML IVPB STA (05:54)
[2024-03-31] MEDS ORDERED: SENNOSIDES 8.6 MG TAB PO PRN (09:17)
[2024-03-31] MEDS: CYCLOBENZAPRINE 10 MG TAB PO PRN (11:39)
[2024-03-31] MEDS ORDERED: BUTALB/APAP/CAFF 50-325-40MG TAB PO PRN (12:05)
[2024-03-31] MEDS: KETOROLAC 15 MG/ML 1 ML VIAL IVP STA (12:14)
[2024-03-31] MEDS: BUTALB/APAP/CAFF 50-325-40MG TAB PO STA (12:14)
--- NOTE | 2024-03-31 14:09 | P.HPIM ---
History of Present Illness H&P Date: 03/31/24 48 year old F with PMH of h/o ESBL UTIs, GERD, Hypertension, Depression and anxiety, Obesity presents to the ED for back pain. Recently discharged on 02/13/2024 on IV ertapenem for 12 days for pyelonephritis. She reports bilateral back pain L > R, dysuria and chills. Also reports a headache which she relates to chronic migraine. She denies any chest pain, shortness of breath, palpitations, lightheadedness or changes in bowel habits. In the ED she underwent extensive evaluation. BP 142/91, HR 95, T 98.5F, RR 18, 97% on RA. CBC, BMP RDW 15.8, Cl 110, bicarb 21, glu 160. UA large blood, moderate LE. Patient is admitted for treatment of UTI and ID consult. General: non toxic, no distress, appears at stated age Derm: warm, dry Head: atraumatic, normocephalic, symmetric Eyes: EOMI, no lid lag, anicteric sclera Mouth: no lip lesion, mucus membranes moist Cardiovascular: S1S2 reg, no murmur Lungs: CTA bilateral, no rhonchi, no rales , no accessory muscle use Abdominal: soft, nontender to palpation, no guarding, no appreciable organomegaly Ext: no gross muscle atrophy, no edema, no contractures Neuro: no focal neuro deficits Psych: Alert, oriented, appropriate affect Based on my assessment of this patient, this patient meets a high complexity level of care. ESBL UTI: No signs of sepsis. Start Ertapenem 1g IV QD. Collect urine culture. Consult ID. Migraine: Fioricet 1 tab PO Q4H PRN. Toradol 15 mg IV Q6H PRN. Hypertension: Amlodipine 5 mg PO QHS. Hold Metoprolol 150 mg PO BID as patient is normotensive right now. Depression and anxiety: Abilify 5 mg PO QHS. Cymbalta 60 mg PO QHS. Lyrica 150 mg PO QHS. Trintellix 20 mg PO QHS. Insomnia: Zolpidem 10 mg PO QHS. CODE STATUS: FULL CODE DVT Prophylaxis: Lovenox SQ GI Prophylaxis: Designated medical POA if patient is not able to make medical decisions for themselves: I have reviewed the following inside sales consultant notes: ED note I have reviewed the results of the following tests: As above I have ordered the following tests: As above I have discussed the care of this patient with the following independent historian: I have independently interpreted the following test below: I have discussed the management of this patient with the following physician: Past Medical History Past Medical History: GERD/Reflux, Hypertension, Osteoarthritis (OA), Pneumonia, Renal Disease Additional Past Medical History / Comment(s): kidney stones/septic stone, environmental allergies, pneumonia aug 2021 post-op, herniated discs, occasional tachycardia, ileus History of Any Multi-Drug Resistant Organisms: ESBL Date of last positivie culture/infection: 01/17/24 MDRO Source:: urine Past Surgical History: Adenoidectomy, Bariatric Surgery, Section, Cholecystectomy, Hysterectomy, Joint Replacement, Orthopedic Surgery, Tonsillectomy Additional Past Surgical History / Comment(s): 08/09/23 cystoscopy with L lithotripsy/L stent removed, left knee replacement, arthroscopy right knee, lap band 16 yrs ago- no fluid in band per pt. surgery at [facility]), 03/23/22 trigger finger, KIDNEY STONE SX, gastric sleeve 10/11, ankle cyst removed as child, samaria ureter stents Past Anesthesia/Blood Transfusion Reactions: Postoperative Nausea & Vomiting (PONV) Additional Past Anesthesia/Blood Transfusion Reaction / Comment(s): grandmother- difficulty waking up, slight fever one time but not ever told it was malignant hyperthermia Past Psychological History: Depression Additional Psychological History / Comment(s): . Smoking Status: Never smoker Past Alcohol Use History: None Reported Past Drug Use History: None Reported - Past Family History Mother Family Medical History: Cancer, Hypertension Medications and Allergies Home Medications Medication Instructions Recorded Confirmed Type Metoprolol Succinate (ER) [Toprol 150 mg PO BID 05/07/18 03/31/24 History XL] Pregabalin [Lyrica] 150 mg PO TID 04/21/20 03/31/24 History Vortioxetine Hydrobromide 20 mg PO HS 04/21/20 03/31/24 History [Trintellix] Zolpidem [Ambien] 10 mg PO HS 04/21/20 03/31/24 History ARIPiprazole [Abilify] 2 mg PO HS 03/10/21 03/31/24 History amLODIPine [Norvasc] 5 mg PO HS 03/10/21 03/31/24 History Cyclobenzaprine [Flexeril] 10 mg PO BID PRN 07/09/23 03/31/24 History DULoxetine HCL [Cymbalta] 60 mg PO HS 07/09/23 03/31/24 History cloNIDine HCL [Catapres] 0.1 mg PO HS 07/09/23 03/31/24 History Albuterol Inhaler [Ventolin Hfa 1 - 2 puff INHALATION RT-Q6H PRN 02/11/24 History Inhaler] Nitrofurantoin Monohyd/M-Cryst 100 mg PO Q12HR 03/31/24 03/31/24 History [Macrobid] Ondansetron Odt [Zofran Odt] 4 mg PO DAILY PRN 03/31/24 03/31/24 History Allergies Allergy/AdvReac Type Severity Reaction Status Date / Time ofloxacin [From Floxin] AdvReac Unknown Hallucinati Verified 03/31/24 12:11 ons SAI Inhibitors AdvReac ANGIOEDEMA Verified 03/31/24 12:11 bupropion [From Wellbutrin] AdvReac seizure Verified 03/31/24 12:11 venlafaxine [From Effexor] AdvReac seizure Verified 03/31/24 12:11 Physical Exam Vitals: Vital Signs Temp Pulse Pulse Resp BP BP Pulse Ox 03/31/24 07:49 97.3 F L 73 16 119/74 100 03/31/24 05:55 77 18 120/81 98 03/31/24 04:16 98.5 F 95 18 142/91 97 Intake and Output 03/30/24 03/31/24 03/31/24 22:59 06:59 14:59 Intake Total 540 Balance 540 Intake: Oral 540 Other: Voiding Method Toilet Weight 112.491 kg Results CBC & Chem 7: 03/31/24 04:29 03/31/24 04:29 Labs: Abnormal Lab Results - Last 24 Hours (Table) 03/31/24 03/31/24 03/31/24 Range/Units 04:24 04:29 04:29 RDW 15.8 H (11.5-15.5) % Chloride 110 H (98-107) mmol/L Carbon Dioxide 21 L (22-30) mmol/L Glucose 160 H (74-99) mg/dL Urine Appearance Cloudy H (Clear) Urine Protein 1+ H (Negative) Urine Glucose (UA) Trace H (Negative) Urine Ketones Trace H (Negative) Urine Blood Large H (Negative) Ur Leukocyte Esterase Moderate H (Negative) Urine RBC >182 H (0-5) /hpf Urine WBC 59 H (0-5) /hpf Ur Squamous Epith Cells 7 H (0-4) /hpf Calcium Oxalate Crystal Many H (None) /hpf Hyaline Casts 16 H (0-2) /lpf Urine Mucus Occasional H (None) /hpf Thrombosis Risk Factor Assmnt - Choose All That Apply Any of the Below Risk Factors Present?: Yes Each Factor Represents 1 point: Age 41-60 years, Obesity (BMI >25) Other Risk Factors: No Other congenital or acquired thrombophilia - If yes, enter type in comment: No Thrombosis Risk Factor Assessment Total Risk Factor Score: 2 Thrombosis Risk Factor Assessment Level: Low Risk
[2024-03-31] MEDS: HYDROmorphone 0.5 MG/0.5 ML SYRINGE IVP PRN (15:33)
[2024-03-31] MEDS: KETOROLAC 15 MG/ML 1 ML VIAL IVP SCH (18:19)
[2024-03-31] MEDS: ARIPiprazole 2 MG TAB PO SCH (21:56)
[2024-03-31] MEDS: PREGABALIN 75 MG CAP PO SCH (21:57)
[2024-03-31] MEDS: DULoxetine HCL 60 MG CAPSULE.DR PO SCH (21:57)
[2024-03-31] MEDS: cloNIDine HCL 0.1 MG TAB PO SCH (21:57)
[2024-03-31] MEDS: amLODIPine 5 MG TAB PO SCH (21:57)
[2024-03-31] MEDS: VORTIOXETINE HYDROBROMIDE 20 MG TABLET PO SCH (21:57)
[2024-03-31] MEDS: ZOLPIDEM 5 MG TAB PO PRN (22:05)
[2024-04-01] MEDS: ERTAPENEM 1 GM in SODIUM CHLORIDE 0.9% 50 ML IVPB SCH (08:21)
[2024-04-01] MEDS: ENOXAPARIN 40 MG/0.4 ML SYRINGE SQ SCH (08:21)
--- NOTE | 2024-04-01 08:38 | P.PN ---
Subjective Progress Note Date: 04/01/24 48 year old F with PMH of h/o ESBL UTIs, GERD, Hypertension, Depression and anxiety, Obesity presents to the ED for back pain. Recently discharged on 02/13/2024 on IV ertapenem for 12 days for pyelonephritis. She reports bilateral back pain L > R, dysuria and chills. Also reports a headache which she relates to chronic migraine. She denies any chest pain, shortness of breath, palpitations, lightheadedness or changes in bowel habits. In the ED she underwent extensive evaluation. BP 142/91, HR 95, T 98.5F, RR 18, 97% on RA. CBC, BMP RDW 15.8, Cl 110, bicarb 21, glu 160. UA large blood, moderate LE. Pat ient is admitted for treatment of UTI and ID consult. Patient was started on Ertapenem and ID consulted. ID recommended renal US. 04/01 Patient was seen and examined. Migraine improved with Fioricet. She reports right flank pain that is improved after getting dilaudid. UCx is pending. General: non toxic, no distress, appears at stated age Derm: warm, dry Head: atraumatic, normocephalic, symmetric Eyes: EOMI, no lid lag, anicteric sclera Mouth: no lip lesion, mucus membranes moist Cardiovascular: S1S2 reg, no murmur Lungs: CTA bilateral, no rhonchi, no rales , no accessory muscle use Abdominal: soft, nontender to palpation, no guarding, no appreciable organomegaly, R CVA tenderness Ext: no gross muscle atrophy, no edema, no contractures Neuro: no focal neuro deficits Psych: Alert, oriented, appropriate affect Based on my assessment of this patient, this patient meets a high complexity level of care. ESBL UTI with right flank pain: No signs of sepsis. Start Ertapenem 1g IV QD. Dilaudid 0.5 mg IV Q3H PRN for pain. Collect urine culture. Renal US pending. Consult ID. Migraine: Fioricet 1 tab PO Q4H PRN. Toradol 15 mg IV Q6H PRN. Hypertension: Amlodipine 5 mg PO QHS. Hold Metoprolol 150 mg PO BID as patient is normotensive right now. Depression and anxiety: Abilify 5 mg PO QHS. Cymbalta 60 mg PO QHS. Lyrica 150 mg PO QHS. Trintellix 20 mg PO QHS. Insomnia: Zolpidem 10 mg PO QHS. CODE STATUS: FULL CODE DVT Prophylaxis: Lovenox SQ GI Prophylaxis: Protonix PO Designated medical POA if patient is not able to make medical decisions for themselves: I have reviewed the following custom decorating consultant notes: I have reviewed the results of the following tests: I have ordered the following tests: Renal US pending. UCx pending. I have discussed the care of this patient with the following independent historian: I have independently interpreted the following test below: I have discussed the management of this patient with the following physician: Objective - Vital Signs Vital signs: Vital Signs Temp 98.3 F 04/01/24 01:11 Pulse 69 04/01/24 01:11 Resp 15 04/01/24 01:11 BP 104/64 04/01/24 01:11 Pulse Ox 97 04/01/24 01:11 FiO2 Intake & Output 03/31/24 04/01/24 04/01/24 18:59 06:59 18:59 Other: Voiding Method Toilet Toilet # Voids 4 5 - Labs CBC & Chem 7: 03/31/24 04:29 03/31/24 04:29
--- NOTE | 2024-04-01 08:41 | P.CONS ---
History of Present Illness - Reason for Consult Consult date: 03/31/24 ESBL Requesting physician: Rene Richards - Chief Complaint Burning urine and flank pain x 1 week - History of Present Illness Patient is a 48-year-old female with a past medical history significant for hypertension reflux osteoarthritis pneumonia kidney stone and recurrent urinary tract infection including ESBL E. coli patient recently completed a course of IV antibiotic therapy followed by 3-week course of nitrofurantoin with the patient completed about a week ago patient mention she was doing well while on antibiotic however after completion of oral antibiotics the patient started having some burning after urination cloudy urine and also develop pain to the flank area describing it to be sharp moderate intensity without radiation patient did have some nausea but no vomiting no diarrhea has been complaining of some headache but no URI symptoms no chest pain shortness of breath or cough with the symptoms the patient has been evaluated on presentation to the hospital the patient was afebrile and no fever have been recorded subsequently patient was not tachycardic hypotensive or hypoxic patient did have a white count of 7.8 creatinine 0.66 urine was positive with moderate leukocyte Estrace 59 WBC have more than 180 RBC patient did receive a dose of Invanz in the ER has been admitted to the hospital infectious disease was consulted for further management of antibiotic therapy Review of Systems Positive point and negatives has been mentioned in the HPI, complete review of systems was performed and all other systems are negative Past Medical History Past Medical History: GERD/Reflux, Hypertension, Osteoarthritis (OA), Pneumonia, Renal Disease Additional Past Medical History / Comment(s): kidney stones/septic stone, environmental allergies, pneumonia aug 2021 post-op, herniated discs, occasional tachycardia, ileus History of Any Multi-Drug Resistant Organisms: ESBL Year Discovered:: 01/17/24 MDRO Source:: urine Past Surgical History: Adenoidectomy, Bariatric Surgery, Section, Cholecystectomy, Hysterectomy, Joint Replacement, Orthopedic Surgery, Tonsillectomy Additional Past Surgical History / Comment(s): 08/09/23 cystoscopy with L lithotripsy/L stent removed, left knee replacement, arthroscopy right knee, lap band 16 yrs ago- no fluid in band per pt. surgery at [facility]), 03/23/22 trigger finger, KIDNEY STONE SX, gastric sleeve 10/11, ankle cyst removed as child, samaria ureter stents Past Anesthesia/Blood Transfusion Reactions: Postoperative Nausea & Vomiting (PONV) Additional Past Anesthesia/Blood Transfusion Reaction / Comm: grandmother-difficulty waking up, slight fever one time but not ever told it was malignant hyperthermia Past Psychological History: Depression Additional Psychological History / Comment(s): . Smoking Status: Never smoker Past Alcohol Use History: None Reported Past Drug Use History: None Reported - Past Family History Mother Family Medical History: Cancer, Hypertension Medications and Allergies Home Medications Medication Instructions Recorded Confirmed Type Metoprolol Succinate (ER) [Toprol 150 mg PO BID 05/07/18 03/31/24 History XL] Pregabalin [Lyrica] 150 mg PO TID 04/21/20 03/31/24 History Vortioxetine Hydrobromide 20 mg PO HS 04/21/20 03/31/24 History [Trintellix] Zolpidem [Ambien] 10 mg PO HS 04/21/20 03/31/24 History ARIPiprazole [Abilify] 2 mg PO HS 03/10/21 03/31/24 History amLODIPine [Norvasc] 5 mg PO HS 03/10/21 03/31/24 History Cyclobenzaprine [Flexeril] 10 mg PO BID PRN 07/09/23 03/31/24 History DULoxetine HCL [Cymbalta] 60 mg PO HS 07/09/23 03/31/24 History cloNIDine HCL [Catapres] 0.1 mg PO HS 07/09/23 03/31/24 History Albuterol Inhaler [Ventolin Hfa 1 - 2 puff INHALATION RT-Q6H PRN 02/11/24 03/31/24 History Inhaler] Nitrofurantoin Monohyd/M-Cryst 100 mg PO Q12HR 03/31/24 03/31/24 History [Macrobid] Ondansetron Odt [Zofran Odt] 4 mg PO DAILY PRN 03/31/24 03/31/24 History Allergies Allergy/AdvReac Type Severity Reaction Status Date / Time ofloxacin [From Floxin] AdvReac Unknown Hallucinati Verified 03/31/24 12:11 ons SAI Inhibitors AdvReac ANGIOEDEMA Verified 03/31/24 12:11 bupropion [From Wellbutrin] AdvReac seizure Verified 03/31/24 12:11 venlafaxine [From Effexor] AdvReac seizure Verified 03/31/24 12:11 Physical Exam Vitals: Vital Signs Temp Pulse Pulse Resp BP BP Pulse Ox 03/31/24 07:49 97.3 F L 73 16 119/74 100 03/31/24 05:55 77 18 120/81 98 03/31/24 04:16 98.5 F 95 18 142/91 97 Intake and Output 03/30/24 03/31/24 03/31/24 22:59 06:59 14:59 Intake Total 540 Balance 540 Intake: Oral 540 Other: Voiding Method Toilet Weight 112.491 kg GENERAL DESCRIPTION: Middle-aged female up in bed, no distress. No tachypnea or accessory muscle of respiration use. HEENT: Shows Pallor , no scleral icterus. Oral mucous membrane is dry. NECK: Trachea central, no thyromegaly. LUNGS: Unlabored breathing. Clear to auscultation anteriorly. No wheeze or crackle. HEART: S1, S2, regular rate and rhythm. No loud murmur ABDOMEN: Soft, no tenderness , guarding or rigidity, no organomegaly EXTREMITIES: No edema of feet. SKIN: No rash, no masses palpable. NEUROLOGICAL: The patient is awake, alert, oriented x3, mood and affect normal. Results CBC & Chem 7: 03/31/24 04:29 03/31/24 04:29 Labs: Abnormal Lab Results - Last 24 Hours (Table) 03/31/24 03/31/24 03/31/24 Range/Units 04:24 04:29 04:29 RDW 15.8 H (11.5-15.5) % Chloride 110 H (98-107) mmol/L Carbon Dioxide 21 L (22-30) mmol/L Glucose 160 H (74-99) mg/dL Urine Appearance Cloudy H (Clear) Urine Protein 1+ H (Negative) Urine Glucose (UA) Trace H (Negative) Urine Ketones Trace H (Negative) Urine Blood Large H (Negative) Ur Leukocyte Esterase Moderate H (Negative) Urine RBC >182 H (0-5) /hpf Urine WBC 59 H (0-5) /hpf Ur Squamous Epith Cells 7 H (0-4) /hpf Calcium Oxalate Crystal Many H (None) /hpf Hyaline Casts 16 H (0-2) /lpf Urine Mucus Occasional H (None) /hpf Assessment and Plan (1) History of ESBL E. coli infection Current Visit: Yes Status: Acute Code(s): Z86.19 - PERSONAL HISTORY OF OTHER INFECTIOUS AND PARASITIC DISEASES SNOMED Code(s): 665675979 (2) UTI (urinary tract infection) Current Visit: Yes Status: Acute Code(s): N39.0 - URINARY TRACT INFECTION, SITE NOT SPECIFIED SNOMED Code(s): 02019751 Plan: 1patient presenting to the hospital with burning urine and flank pain and nausea in this patient who did have a significantly positive UA concerning for symptomatic urinary tract infection and has previously grown ESBL E. coli could be related to the same pathogen. 2we will obtain ultrasound of the kidney and bladder to make sure no evidence of any residual kidney stones been responsible for this recurrent infection. 3we will start the patient on Invanz 1 g daily. 4we will wait for the culture to finalize extremities as antibiotics and may need to be on a long-term suppressive oral antibiotic therapy keeping in mind Recurrent infection once antibiotics are discontinued. Multiple question concern answered. We will follow on clinical condition and cultures to further adjust medication if needed Thank you for this consultation we will follow the patient along with you Dictation was produced using [employer] dictation software. please excuse any grammatical, word or spelling errors. Time with Patient: Greater than 30
--- NOTE | 2024-04-01 09:58 | US ---
EXAMINATION TYPE: US kidneys/renal and bladder DATE OF EXAM: 04/01/2024 COMPARISON: US 02/11/24 CLINICAL INDICATION: Female, 48 years old with history of uti and bacteremia; UTI EXAM MEASUREMENTS: Right Kidney: 12.1x6.4x5.4 cm Left Kidney: 10.3x5.0x4.1 cm Right Kidney: No hydronephrosis or masses seen Left Kidney: No hydronephrosis or masses seen Bladder: wnl Bilateral Jets seen: Rt jet visualized There is no evidence for hydronephrosis at this point in time. No nephrolithiasis is seen. No yobani s are identified. The urinary bladder is anechoic. Right ureteral jet seen. IMPRESSION: 1. Unremarkable renal ultrasound
--- NOTE | 2024-04-01 17:37 | P.PN ---
Subjective Progress Note Date: 04/01/24 Principal diagnosis: Reason for follow-up is recurrent urinary tract infection Patient is a 48-year-old female with a past medical history significant for hypertension reflux osteoarthritis pneumonia kidney stone and recurrent urinary tract infection including ESBL E. coli presenting to the hospital with burning cloudy urine and flank pain did have a positive UA admi tted the hospital for symptomatic urinary tract infection. On today's evaluation that is 04/01/2024,the patient denies any fever or any chills, patient is breathing comfortably on room air, the patient denies chest pain shortness of breath and no significant cough, patient denies abdominal pain, no nausea vomiting or diarrhea, patient mention some improvement in her urinary symptoms. No new lab has been repeated today cultures currently pending ultrasound no nephrolithiasis no hydronephrosis. Objective - Vital Signs Vital signs: Vital Signs Temp 98.3 F 04/01/24 01:11 Pulse 69 04/01/24 01:11 Resp 15 04/01/24 01:11 BP 104/64 04/01/24 01:11 Pulse Ox 97 04/01/24 01:11 FiO2 Intake & Output 03/31/24 04/01/24 04/01/24 18:59 06:59 18:59 Other: Voiding Method Toilet Toilet # Voids 4 5 - Exam GENERAL DESCRIPTION: Middle-aged female up in bed in no distress RESPIRATORY SYSTEM: Unlabored breathing , decreased breath sounds at bases HEART: S1 S2 regular rate and rhythm , ABDOMEN: Soft , no tenderness EXTREMITIES: No edema feet - Labs CBC & Chem 7: 03/31/24 04:29 03/31/24 04:29 Assessment and Plan (1) History of ESBL E. coli infection Current Visit: Yes Status: Acute Code(s): Z86.19 - PERSONAL HISTORY OF OTHER INFECTIOUS AND PARASITIC DISEASES SNOMED Code(s): 752889579 (2) UTI (urinary tract infection) Current Visit: Yes Status: Acute Code(s): N39.0 - URINARY TRACT INFECTION, SITE NOT SPECIFIED SNOMED Code(s): 23524523 Plan: 1patient presenting to the hospital with burning urine and flank pain and nausea in this patient who did have a significantly positive UA concerning for symptomatic urinary tract infection and has previously grown ESBL E. coli could be related to the same pathogen. 2patient did have ultrasound of the kidney and bladder with no evidence of any nephrolithiasis hydronephrosis or masses 3patient to continue with Invanz 1 g daily with the discharge antibiotic on the basis of final culture may or may not be IV Dictation was produced using [employer] dictation software. please excuse any grammatical, word or spelling errors. Time with Patient: Less than 30
[2024-04-02] MEDS: PANTOPRAZOLE 40 MG TABLET PO SCH (06:32)
--- NOTE | 2024-04-02 15:42 | P.PN ---
Subjective Progress Note Date: 04/02/24 Principal diagnosis: Reason for follow-up is recurrent urinary tract infection Patient is a 48-year-old female with a past medical history significant for hypertension reflux osteoarthritis pneumonia kidney stone and recurrent urinary tract infection including ESBL E. coli presenting to the hospital with burning cloudy urine and flank pain did have a positive UA admi tted the hospital for symptomatic urinary tract infection. On today's evaluation that is 04/02/2024,the patient remains to be afebrile, patient is on room air not requiring supplemental oxygen and denies any shortness of breath no chest pain or cough.Patient denies having any nausea or vomiting, no abdominal pain and no diarrhea, patient mention improvement in her urinary symptoms No new labs urine culture negative Objective - Vital Signs Vital signs: Vital Signs Temp 98.5 F 04/02/24 11:10 Pulse 94 04/02/24 11:10 Resp 18 04/02/24 11:10 BP 144/79 04/02/24 11:10 Pulse Ox 99 04/02/24 11:10 FiO2 Intake & Output 04/01/24 04/02/24 04/02/24 18:59 06:59 18:59 Intake Total 100 Balance 100 Intake: Oral 100 Other: Voiding Method Toilet # Voids 5 1 # Bowel Movements 1 1 - Exam GENERAL DESCRIPTION: Middle-aged female up in bed in no distress RESPIRATORY SYSTEM: Unlabored breathing , decreased breath sounds at bases HEART: S1 S2 regular rate and rhythm , ABDOMEN: Soft , no tenderness EXTREMITIES: No edema feet - Labs CBC & Chem 7: 03/31/24 04:29 03/31/24 04:29 Labs: Microbiology - Last 24 Hours (Table) 03/31/24 15:37 Urine Culture - Final Urine,Clean Catch Assessment and Plan (1) History of ESBL E. coli infection Current Visit: Yes Status: Acute Code(s): Z86.19 - PERSONAL HISTORY OF OTHER INFECTIOUS AND PARASITIC DISEASES SNOMED Code(s): 840318074 (2) UTI (urinary tract infection) Current Visit: Yes Status: Acute Code(s): N39.0 - URINARY TRACT INFECTION, SITE NOT SPECIFIED SNOMED Code(s): 88794320 Plan: 1patient presenting to the hospital with burning urine and flank pain and nausea in this patient who did have a significantly positive UA concerning for symptomatic urinary tract infection and has previously grown ESBL E. coli could be related to the same pathogen. 2patient did have ultrasound of the kidney and bladder with no evidence of any nephrolithiasis hydronephrosis or masses 3patient urine culture has been in so far we will repeat her UA continue with Invanz 1 g daily if did have overall improvement with repeat UA we will consider Macrobid on discharge Dictation was produced using [employer] dictation software. please excuse any grammatical, word or spelling errors. Time with Patient: Less than 30
--- NOTE | 2024-04-02 16:40 | P.PN ---
Subjective Progress Note Date: 04/02/24 Subjective: Patient seen and examined at bedside. No acute events overnight. Still complains of dysuria and right CVA tenderness. Says migraine have improved. Pertinent positives and negatives as discussed above, a complete review of systems was performed and all other systems are negative. Vitals: Signs Reviewed Physical Exam: General: nontoxic, no distress, appears at stated age Derm: warm, dry, intact Head: atraumatic, normocephalic, symmetric Eyes: EOMI, no lid lag, anicteric sclera Mouth: no lip lesion, mucus membranes moist Cardiovascular: S1 S2 reg, no murmur, rubs, or gallops Lungs: CTA bilateral, no rhonchi, no rales, no accessory muscle use Abdominal: soft, no appreciable organomegaly, right CVA tenderness Extremities: no gross muscle atrophy, no edema, no contractures Neuro: Alert, Oriented, CNII-XII grossly intact, gait normal Psych: well appearing, appropriate affect Data Received Today: Pertinent Labs: No new labs Imaging: No new imaging Assessment and Plan: Urinary tract infection History of recurrent ESBL UTI Presents with right flank pain Patient on Ertapenem 1 g IV daily Dilaudid 0.5 mg IV every 3 hours as needed for pain Urine culture: No growth after 18 hours Repeat UA pending result Renal ultrasound displayed no evidence of hydronephrosis, nephrolithiasis, mass. ID note reviewed, will continue with Ertapenem and monitor for improvement. Consider Macrobid on discharge. Migraine Fioricet 1 tab p.o. every 4 hours as needed. Toradol 15 mg IV every 6 hours as needed. Patient states symptoms have improved Hypertension Amlodipine 5 mg p.o. nightly metoprolol 150 mg p.o. twice daily - Clonidine 0.1 nightly Depression and anxiety, peripheral neuropathy Abilify 2 mg p.o. nightly Cymbalta 60 mg p.o. nightly Lyrica 50 mg p.o. nightly Trintellix 20 mg p.o. q. Hx Insomnia Zolpidem 10 mg p.o. nightly PRN F: N/A E: Replete as needed N: Regular diet A: N/A DVT ppx: Lovenox 40 mg SQ Code status: Full Anticipated discharge place: Pending clinical course Anticipated discharge time: Pending clinical course I have seen and evaluated the patient today. Discussed with the resident and agree with the residents finding and plan as documented in the resident's note. Changes highlighted in blue font. Objective - Vital Signs Vital signs: Vital Signs Temp 98.5 F 04/02/24 11:10 Pulse 94 04/02/24 11:10 Resp 18 04/02/24 11:10 BP 144/79 04/02/24 11:10 Pulse Ox 99 04/02/24 11:10 FiO2 Intake & Output 04/01/24 04/02/24 04/02/24 18:59 06:59 18:59 Intake Total 100 Balance 100 Intake: Oral 100 Other: Voiding Method Toilet # Voids 5 1 # Bowel Movements 1 1 - Labs CBC & Chem 7: 03/31/24 04:29 03/31/24 04:29 Labs: Microbiology - Last 24 Hours (Table) 03/31/24 15:37 Urine Culture - Final Urine,Clean Catch
[2024-04-02 17:07] LABS: Appearance,Urine Clear (Clear); Bilirubin,Urine Negative (Negative); Blood,Urine Trace (Negative); Color,Urine Yellow; Glucose,Urine (UA) Negative (Negative); Ketones,Urine Negative (Negative); Leukocyte Esterase,Urine Negative (Negative); Mucus,Urine Few /hpf; Nitrite,Urine Negative (Negative); PH, Urine 6.5 (5.0-8.0); Protein,Urine Trace (Negative); RBC,Urine 17 /hpf (0-5); Specific Gravity,Urine 1.023 (1.001-1.035); Squamous Epithelial Cell,Urine 3 /hpf (0-4); Urobilinogen,Urine <2.0 mg/dL (<2.0); WBC,Urine 4 /hpf (0-5)
[2024-04-02] MEDS: METOPROLOL SUCCINATE (ER) 100 MG TAB.ER.24H PO SCH (22:58)
[2024-04-03 07:34] LABS: Basophils % (A) 1 %; Eosinophils # (A) 0.3 k/uL (0-0.7); Eosinophils % (A) 5 %; HCT 33.4 % (34.0-46.0); Hypochromasia Slight; Lymphocytes # (A) 1.8 k/uL (1.0-4.8); Lymphocytes % (A) 33 %; MCH 26.9 pg (25.0-35.0); MCHC 32.8 g/dL (31.0-37.0); Monocytes # (A) 0.5 k/uL (0-1.0); Monocytes % (A) 10 %; Neutrophils # (A) 2.7 k/uL (1.3-7.7); Neutrophils % (A) 49 %; Platelet Count 181 k/uL (150-450); RBC 4.08 m/uL (3.80-5.40); RDW 15.8 % (11.5-15.5); WBC 5.5 k/uL (3.8-10.6)
[2024-04-03 07:35] LABS: ALT 32 U/L (4-34); AST 29 U/L (14-36); African American GFR (CKD) >90 (>60 ml/min/1.73 sqM); Albumin 3.8 g/dL (3.5-5.0); Alkaline Phosphatase 122 U/L (38-126); Anion Gap 5 mmol/L; Blood Urea Nitrogen 18 mg/dL (7-17); Calcium 9.1 mg/dL (8.4-10.2); Carbon Dioxide 28 mmol/L (22-30); Chloride 105 mmol/L (98-107); Glucose 92 mg/dL (74-99); Non-African American GFR(CKD) >90 (>60 ml/min/1.73 sqM); Potassium 4.3 mmol/L (3.5-5.1); Sodium 138 mmol/L (137-145); Total Bilirubin 0.5 mg/dL (0.2-1.3); Total Protein 6.2 g/dL (6.3-8.2)
[2024-04-03 08:02] VITALS: BP 124/81; PULSE 79; RESP 16; TEMP 98.5
--- NOTE | 2024-04-03 12:03 | P.PN ---
Subjective Progress Note Date: 04/03/24 Principal diagnosis: Reason for follow-up is recurrent urinary tract infection Patient is a 48-year-old female with a past medical history significant for hypertension reflux osteoarthritis pneumonia kidney stone and recurrent urinary tract infection including ESBL E. coli presenting to the hospital with burning cloudy urine and flank pain did have a positive UA admi tted the hospital for symptomatic urinary tract infection. On today's evaluation that is 04/03/2024, the patient continues to be afebrile, the patient is on room air and breathing comfortably, the Pt denies having any chest pain or cough, the patient denies having any abdominal pain no vomiting or any diarrhea did have improvement her urinary symptoms. Patient white count is 5.5, creatinine 0.5 9 repeat UA much better Objective - Vital Signs Vital signs: Vital Signs Temp 99.0 F 04/02/24 23:35 Pulse 83 04/02/24 23:35 Resp 17 04/02/24 23:35 BP 128/80 04/02/24 23:35 Pulse Ox 99 04/02/24 23:35 FiO2 Intake & Output 04/02/24 04/03/24 04/03/24 18:59 06:59 18:59 Intake Total 600 Balance 600 Intake: Oral 600 Other: # Voids 1 2 - Exam GENERAL DESCRIPTION: Middle-aged female up in bed in no distress RESPIRATORY SYSTEM: Unlabored breathing , decreased breath sounds at bases HEART: S1 S2 regular rate and rhythm , ABDOMEN: Soft , no tenderness EXTREMITIES: No edema feet - Labs CBC & Chem 7: 04/03/24 06:55 04/03/24 06:55 Labs: Abnormal Lab Results - Last 24 Hours (Table) 04/02/24 Range/Units 16:30 Urine Protein Trace H (Negative) Urine Blood Trace H (Negative) Urine RBC 17 H (0-5) /hpf Urine Mucus Few H (None) /hpf Microbiology - Last 24 Hours (Table) 03/31/24 15:37 Urine Culture - Final Urine,Clean Catch Assessment and Plan (1) History of ESBL E. coli infection Current Visit: Yes Status: Acute Code(s): Z86.19 - PERSONAL HISTORY OF OTHER INFECTIOUS AND PARASITIC DISEASES SNOMED Code(s): 086826570 (2) UTI (urinary tract infection) Current Visit: Yes Status: Acute Code(s): N39.0 - URINARY TRACT INFECTION, SITE NOT SPECIFIED SNOMED Code(s): 65514986 Plan: 1patient presenting to the hospital with burning urine and flank pain and nausea in this patient who did have a significantly positive UA concerning for symptomatic urinary tract infection and has previously grown ESBL E. coli could be related to the same pathogen. 2patient did have ultrasound of the kidney and bladder with no evidence of any nephrolithiasis hydronephrosis or masses 3patient urine culture has been negative did have improvement in the repeat UA with no pyuria white count is normal we will consider extended course of oral Macrobid on discharge and close outpatient follow-up prescription was sent to the pharmacy Dictation was produced using [employer] dictation software. please excuse any grammatical, word or spelling errors. Time with Patient: Less than 30
--- NOTE | 2024-04-03 15:43 | P.DS ---
Providers Date of admission: 03/31/24 05:26 Expected date of discharge: 04/03/24 Attending physician: Tez Sanchez MD Consults: 03/31/24 05:26 Consult Physician Routine Consulting Provider: Taye Motley Consult Reason/Comments: esbl Do you want consulting provider notified?: Yes Primary care physician: [facility] Course: Discharge Diagnosis: Urinary tract infection History of recurrent ESBL UTI Migraine Hypertension Depression Anxiety Peripheral neuropathy Insomnia Hospital Course: 48 year old F with PMH of h/o ESBL UTIs, GERD, Hypertension, Depression and anxiety, Obesity presents to the ED for back pain. Recently discharged on 02/13/2024 on IV ertapenem for 12 days for pyelonephritis. She reports bilateral back pain R > L, dysuria and chills. Also reports a headache which she relates to chronic migraine. She denies any chest pain, shortness of breath, palpitations, lightheadedness or changes in bowel habits. In the ED she underwent extensive evaluation. BP 142/91, HR 95, T 98.5F, RR 18, 97% on RA. CBC, BMP RDW 15.8, Cl 110, bicarb 21, glu 160. UA large blood, moderate LE. Patient is admitted for treatment of UTI and ID consult. Patient was started on Ertapenem. Renal ultrasound was unremarkable with no signs of hydronephrosis, nephrolithiasis, or mass. Migraine was improved with Fioricet. She reports right flank pain that is improved after getting dilaudid. UCx showed no growth after 18 hours. Follow-up UA showed marked improvement with no urine white blood cells. Patient is to be discharged with Macrobid. She will follow-up with PCP and ID. Patient is to be discharged home. Patient seen and examined at bedside. No acute events overnight. Mild soreness in the right CVA. Vital signs reviewed and stable. Physical Exam: General nontoxic, no distress, appears appropriate Derm: Warm, dry Head: Atraumatic, normocephalic, symmetric Eyes: EOMI, no lid lag Mouth: No lip lesion, mucous membrane moist Cardiovascular: S1-S2 regular, no murmur Lungs: CTA bilateral, no rhonchi, no rales, no accessory muscle use Abdominal: Soft, right CVA tenderness, no guarding, no appreciable organomegaly Ext: No gross muscle atrophy, no edema, no contractors Neuro: CN II-XI grossly intact, no focal neuro deficits Psych: alert, oriented, appropriate affect A total of 33 minutes of time were spent preparing this complex discharge summary. Patient was discharge on 04/03/2024 at 1120 I have seen and evaluated the patient today. Discussed with the resident and agree with the residents finding and plan as documented in the resident's note. Changes highlighted in blue font. Patient Condition at Discharge: Stable Plan - Discharge Summary Discharge Rx Participant: Yes New Discharge Prescriptions: New Nitrofurantoin Monohyd/M-Cryst [Macrobid] 100 mg PO Q12HR #60 cap Continue Metoprolol Succinate (ER) [Toprol XL] 150 mg PO BID Zolpidem [Ambien] 10 mg PO HS Vortioxetine Hydrobromide [Trintellix] 20 mg PO HS Pregabalin [Lyrica] 150 mg PO TID ARIPiprazole [Abilify] 2 mg PO HS Ondansetron Odt [Zofran ODT] 4 mg PO DAILY PRN PRN Reason: Nausea And Vomiting amLODIPine [Norvasc] 5 mg PO HS cloNIDine HCL [Catapres] 0.1 mg PO HS DULoxetine HCL [Cymbalta] 60 mg PO HS Cyclobenzaprine [Flexeril] 10 mg PO BID PRN PRN Reason: Muscle Spasm Albuterol Inhaler [Ventolin Hfa Inhaler] 1 - 2 puff INHALATION RT-Q6H PRN PRN Reason: Shortness Of Breath Discontinued Nitrofurantoin Monohyd/M-Cryst [Macrobid] 100 mg PO Q12HR Discharge Medication List Metoprolol Succinate (ER) [Toprol XL] 150 mg PO BID 05/07/18 [History] Pregabalin [Lyrica] 150 mg PO TID 04/21/20 [History] Vortioxetine Hydrobromide [Trintellix] 20 mg PO HS 04/21/20 [History] Zolpidem [Ambien] 10 mg PO HS 04/21/20 [History] ARIPiprazole [Abilify] 2 mg PO HS 03/10/21 [History] amLODIPine [Norvasc] 5 mg PO HS 03/10/21 [History] Cyclobenzaprine [Flexeril] 10 mg PO BID PRN 07/09/23 [History] DULoxetine HCL [Cymbalta] 60 mg PO HS 07/09/23 [History] cloNIDine HCL [Catapres] 0.1 mg PO HS 07/09/23 [History] Albuterol Inhaler [Ventolin Hfa Inhaler] 1 - 2 puff INHALATION RT-Q6H PRN 02/11/24 [History] Ondansetron Odt [Zofran ODT] 4 mg PO DAILY PRN 03/31/24 [History] Nitrofurantoin Monohyd/M-Cryst [Macrobid] 100 mg PO Q12HR #60 cap 04/03/24 [Rx] Follow up Appointment(s)/Referral(s): Rosa Stewart MD [Primary Care Provider] - 1-2 days Taye Motley MD [STAFF PHYSICIAN] - 2 Weeks Patient Instructions/Handouts: Urinary Tract Infection in Women (DC) Activity/Diet/Wound Care/Special Instructions: Please see your PCP and ID. Discharge Disposition: HOME SELF-CARE
== END 2024-04-03 13:13 | disposition home or self-care (01) | DRG 690 ==
LOC: EC 04:12 → 4SSUR 05:26 → 4FBP 04-02 10:04
PROVIDERS: ADMIT Internal Medicine; ATTEND Internal Medicine
DX: N39.0 Urinary tract infection, site not specified (principal); Z68.41 Body mass index [BMI] 40.0-44.9, adult; N12 Tubulo-interstitial nephritis, not specified as acute or chronic; G47.00 Insomnia, unspecified; G62.9 Polyneuropathy, unspecified; I10 Essential (primary) hypertension; F32.A Depression, unspecified; F41.9 Anxiety disorder, unspecified; G43.909 Migraine, unspecified, not intractable, without status migrainosus; Z79.899 Other long term (current) drug therapy; Z86.19 Personal history of other infectious and parasitic diseases; Z87.440 Personal history of urinary (tract) infections; Z87.442 Personal history of urinary calculi; Z96.652 Presence of left artificial knee joint; Z98.84 Bariatric surgery status; E66.9 Obesity, unspecified; K21.9 Gastro-esophageal reflux disease without esophagitis; M19.90 Unspecified osteoarthritis, unspecified site; Z88.1 Allergy status to other antibiotic agents; Z91.09 Other allergy status, other than to drugs and biological substances
CPT/HCPCS: 36415; 76770; 80048; 80053; 81001; 85025; 87086; 96374; 99284

== ENCOUNTER → 2024-04-05 | Outpatient (CLI) | payer MEDICAID ==
--- NOTE | 2024-04-05 13:29 | XR ---
EXAMINATION TYPE: XR KUB DATE OF EXAM: 04/05/2024 COMPARISON: 01/18/2024 HISTORY: Pain TECHNIQUE: Single supine KUB image of the abdomen is obtained FINDINGS: Small bowel demonstrates no evidence for dilatation or air fluid levels. Gas and fecal material is seen in non-distended colon. No convincing evidence for pneumoperitoneum. No unusual calcifications. The lung bases are clear. The osseous structures are intact. IMPRESSION: 1. Overall nonobstructive bowel gas pattern.
== END | disposition home or self-care (01) ==
LOC: RADXRMAIN 12:46
PROVIDERS: ATTEND Urology
DX: N20.0 Calculus of kidney (principal)
CPT/HCPCS: 74018

== ENCOUNTER → 2024-04-16 | Outpatient (CLI) | payer MEDICAID ==
[2024-04-16 14:10] LABS: African American GFR (CKD) >90 (>60 ml/min/1.73 sqM); Blood Urea Nitrogen 12 mg/dL (7-17); Non-African American GFR(CKD) >90 (>60 ml/min/1.73 sqM)
--- NOTE | 2024-04-16 22:24 | CT ---
EXAMINATION TYPE: CT urogram wo/w con DATE OF EXAM: 04/16/2024 COMPARISON: 02/06/2024 HISTORY: 48-year-old female R31.1, Bilateral flank pain and hematuria x 2 weeks. TECHNIQUE: Contiguous axial scanning of the abdomen and pelvis performed without and with IV Contrast , patient injected with 100ml mL of Isovue 370. Delayed images through the kidneys and bladder were o btained. Coronal/sagittal reconstructions performed. 3-D reconstructions generated on a dedicated [employer] workstation. CT DLP: 4512 mGycm Automated exposure control for dose reduction was used. FINDINGS: Heart borderline in size without pericardial effusion. Bandlike areas of atelectasis or scarring at t he lung bases remain unchanged. No pleural effusion. Small hiatal hernia. Postsurgical change of sleeve gastrectomy. Liver borderline in size at 17.8 cm. No focal liver lesion or biliary ductal dilatation. Portal venou s system is patent. Cholecystectomy clips. Adrenal glands, spleen, and pancreas within normal limits. A 6 mm nonobstructing stone within either. Similar right-sided pelviectasis. The previous mild right- sided hydroureteronephrosis has resolved. Some punctate hyperdense material is redemonstrated depende nt within the right renal pelvis though improved from prior exam. No suspicious renal mass or abnormal filling defect within the renal collecting system or along the c ourse of either ureter. No dilated small bowel, free fluid, or free air. No mesenteric or retroperitoneal lymphadenopathy. Normal appendix. Mild stool burden. Mildly redundant sigmoid colon. No pericolonic inflammatory carter e. Bladder is urine distended. Uterus surgically absent. Left ovary is visualized. Right ovary not seen. No abnormal fluid collection in the pelvis or pelvic lymphadenopathy. Bones: Mild spondylotic change mid to lower lumbar spine. Degenerative trace grade 1 anterolisthesis L4-L5. IMPRESSION: 1. SIMILAR NONOBSTRUCTIVE 6 MM LEFT RENAL STONE. A 6 MM STONE WITHIN THE RIGHT KIDNEY HAS DEVELOPED I N THE INTERVAL. 2. SOME PUNCTATE HYPERDENSE MATERIAL DEPENDENT WITHIN THE RIGHT RENAL PELVIS, POSSIBLY TINY CALCULUS. THERE WAS MORE HYPERDENSE MATERIAL HERE ON THE PATIENT'S 02/06/2024 EXAM. PROBABLE IMPENDING PASSAGE OF PUNCTATE STONE INTO THE RIGHT URETER. 3. THE PREVIOUS MILD RIGHT-SIDED HYDRONEPHROSIS HAS RESOLVED. 4. NO SUSPICIOUS RENAL MASS OR ABNORMAL FILLING DEFECT ALONG THE COURSE OF EITHER URETER. 5. SMALL HIATAL HERNIA; STATUS POST SLEEVE GASTRECTOMY.
== END | disposition home or self-care (01) ==
LOC: RADCTMAIN 13:08
PROVIDERS: ATTEND Urology
DX: R31.1 Benign essential microscopic hematuria (principal); N39.9 Disorder of urinary system, unspecified; N20.0 Calculus of kidney; K44.9 Diaphragmatic hernia without obstruction or gangrene; Z98.84 Bariatric surgery status
CPT/HCPCS: 82565; 84520; 74178; 36415; 74400; Q9967

== ENCOUNTER 2024-04-30 07:30 | Day surgery (SDC) | payer MEDICAID ==
[2024-04-30] MEDS ORDERED: DEXAMETHASONE SOD PHOSPHATE 4 MG/ML 1 ML VIAL ONE (09:01)
[2024-04-30] MEDS ORDERED: SCOPOLAMINE 1 MG/72 HR PATCH TRANSDERM ONE (09:01)
[2024-04-30] MEDS ORDERED: ONDANSETRON 4 MG/2 ML VIAL ONE (09:01)
[2024-04-30] MEDS ORDERED: fentaNYL (PF) 50 MCG/ML 2 ML AMP ONE (11:15)
[2024-04-30] MEDS ORDERED: KETOROLAC 30 MG/ML 1 ML VIAL ONE (11:15)
[2024-04-30] MEDS ORDERED: PROPOFOL 10 MG/ML 20 ML VIAL IV ONE (11:15)
[2024-04-30] MEDS ORDERED: HYDROmorphone (PF) 1 MG/ML ONE (11:15)
[2024-04-30] MEDS ORDERED: SODIUM CHLORIDE 0.9% 100 ML BAG ONE (11:15)
[2024-04-30] MEDS ORDERED: SUCCINYLCHOLINE CHLORIDE 200 MG/10 ML VIAL IV ONE (11:15)
[2024-04-30] MEDS ORDERED: GENTAMICIN 80 MG/2 ML (MDV) VIAL ONE (11:15)
[2024-04-30] MEDS ORDERED: LIDOCAINE 1% INJ 10MG/ML (20 ML MDV) ONE (11:15)
[2024-04-30] MEDS ORDERED: MIDAZOLAM 2 MG/2 ML VIAL ONE (11:15)
[2024-04-30] MEDS ORDERED: LACTATED RINGERS 1,000 ML BAG ONE (11:15)
--- NOTE | 2024-06-10 12:10 | OP ---
OPERATIVE REPORT DATE OF SERVICE : 04/30/2024 PREOPERATIVE DIAGNOSIS: Bilateral ureteral stones. POSTOPERATIVE DIAGNOSIS: Bilateral ureteral stones. OPERATION PROPOSED: Bilateral ureteroscopy, holmium laser lithotripsy, stone basketing, and stent insertion. IMPLANTS: 6-Emirati x 24 cm stents in bilateral ureter. COMPLICATIONS: None. CONDITION: Stable. ESTIMATED BLOOD LOSS: 5 mL. INDICATIONS: This is a 49-year-old female with history of recurrent kidney stones, underwent multiple ureteroscopies with holmium laser, had been having intermittent bilateral flank pain, underwent a CT abdomen and pelvis that showed evidence of bilateral renal stone, discussed with her the stone could be contributing to her pain. Option of bilateral ureteroscopy with holmium laser was discussed, reviewed the risks, which included, but not limited to bleeding, infection, injury to the ureter. Risk of anesthesia was also discussed. She understood all the risks and agreed to proceed. DESCRIPTION OF PROCEDURE: The patient was brought to the operating room, general anesthesia was induced. She was prepped and draped in sterile fashion, placed in the dorsal lithotomy position. Cystoscopy was carried out with a 21-Emirati sheath was inserted per urethra, cystoscopy was performed which showed no abnormality within the bladder. Attention was then carried to the left ureteral orifice, which was intubated with a sensor wire, the wire was advanced under fluoroscopy and into the renal pelvis. Under fluoroscopy, 11/13- Emirati access sheath was passed over the wire into the proximal ureter. Next, a flexible ureteroscope was inserted through the access sheath, renoscopy was performed which showed a large stone in the lower pole of the kidney, using the holmium laser, the stone was fragmented, stone fragments were removed using the stone basket. Repeat renoscopy showed no sizable fragments in the kidney, on fluoroscopy, there were no Radiopaque densities, pullback ureteroscopy was performed, which showed no injury to the ureter or ureteral stone. A Sensor wire was advanced as the ureteroscope was withdrawn. The stent was passed over the wire, the proximal curl which was visualized on fluoroscopy, and the distal curl was visualized using cystoscope. Attention was then carried to the right ureteral orifice, which was also intubated with a sensor wire, the wire was passed under fluoroscopy and into the renal pelvis. Next, under fluoroscopy, 1113 Emirati access sheath was passed that over the wire into the proximal ureter. Next, a flexible ureteroscope was inserted through the access sheath, renoscopy was performed which showed a large stone in the lower pole. On note, on ureteroscopy, there was slight narrowing at the proximal ureter, but I was able to navigate the scope past the narrowing into the kidney. Attention was then carried through the stone in the lower pole, using the holmium laser, the stone was dusted, any sizable stone fragments were removed using the stone basket. Repeat renoscopy showed no additional stones within the kidney, any sizable fragments were removed from the kidney. Pullback ureteroscopy was performed, which showed no injury to the ureter or the ureteral stone. As the ureteroscope was withdrawn, the sensor wire was advanced through. Next, the ureteral stent was passed over the wire, the proximal curl was visualized on fluoroscopy and the distal curl was visualized on cystoscope. The bladder was emptied at the end of the case. At this point, patient will follow up in 1 to 2 weeks for stent removal. The patient was awakened from anesthesia and taken to Recovery in stable condition. MMODL / IJN: [id number] / DENISE
--- NOTE | 2024-06-20 10:36 | FL ---
EXAMINATION TYPE: FL guidance operating room DATE OF EXAM: 05/28/2024 8:15 AM COMPARISON: Pre Operative Images if available both CT/MRI or plain film CLINICAL INDICATION: Female, 49 years old with history of DEYA LITHO WITH STENT INSERT OR; TECHNIQUE: FL guidance operating room, multiple fluoroscopic images provided for procedure. Total fluoroscopy time: 5 seconds Total submitted images to PACS: 2 DAP: [id number] mGym2 Gycm2 uGym2 cGycm2 or equivalent. FINDINGS: Fluoroscopic images taken for renal stone. Renal stone identified projecting over the renal sinus. No evidence of pneumoperitoneum. Multilevel degeneration changes of the spine. IMPRESSION: 1. No evidence for intraoperative complication. 2. Please see the operative/procedural note for further details. [facility], , 06/20/2024 10:33 AM
== END 2024-04-30 14:12 ==
LOC: OR 07:30
PROVIDERS: ATTEND Urology
DX: N20.0 Calculus of kidney

== ENCOUNTER 2024-05-07 05:02 | Emergency (ER) | payer MEDICAID ==
[2024-05-07] MEDS ORDERED: KETOROLAC 15 MG/ML 1 ML VIAL ONE ×2 (06:32→10:41)
[2024-05-07] MEDS ORDERED: ONDANSETRON 4 MG/2 ML VIAL ONE (06:32)
[2024-05-07] MEDS ORDERED: MORPHINE SULFATE 4 MG/ML SYRINGE ONE (06:32)
[2024-05-07] MEDS ORDERED: SODIUM CHLORIDE 0.9% 1,000 ML BAG ONE (09:00)
[2024-05-07] MEDS ORDERED: HYDROmorphone 1 MG/ML 1 ML SYRINGE ONE (10:41)
--- NOTE | 2024-05-28 13:41 | CT ---
Katty Ruiz ID: [id number] : 1975 EXAMINATION TYPE: CT renal stones wo con DATE OF EXAM: 05/07/2024 COMPARISON: 04/16/2024 HISTORY: 49-year-old female with bilateral back pain, recent stents placed last week for stones CT DLP: 1280.4 mGycm. Automated exposure control for dose reduction was used. TECHNIQUE: Contiguous axial scanning of the abdomen and pelvis without IV contrast. Coronal and sagit leonila reconstructions performed. FINDINGS: Heart normal size without pericardial effusion. Strandy scarring or atelectasis of the right base. Small to moderate-sized hiatal hernia with post surgical change of sleeve gastrectomy again noted. Noncontrast appearance of the liver, adrenal glands, spleen, and pancreas show no gross abnormality. No dilated small bowel, free fluid, or free air. No mesenteric or retroperitoneal lymphadenopathy. Normal appendix. Scattered mild stool. No pericolonic inflammatory change. 3 punctate nonobstructive right renal calculi measuring up to 4 mm. Dependent 4 mm hyperdensity withi n the right renal pelvis is also unchanged. Approximate 3 punctate 2 to 3 mm nonobstructive left jayesh l stones. Bilateral ureteral stents are demonstrated with the proximal pigtail loop in the renal pelv is and the distal pigtail loops within the bladder lumen. No hydronephrosis is seen. Bladder partially distended. Uterus surgically absent. No abnormal fluid collection in the pelvis or pelvic lymphadenopathy. Bones: Moderate degenerative disc disease L5-S1. Hypertrophic facet arthropathy lower lumbar spine wi th trace grade 1 anterolisthesis L4-L5. IMPRESSION: 1. Punctate bilateral nonobstructive nephrolithiasis measuring up to 4 mm on the right and 2 to 3 mm on the left. Bilateral ureteral stents appear satisfactorily positioned. No hydronephrosis. 2. Similar 4 mm high density focus along the posterior wall of the right renal pelvis. Given the unc hanged appearance from 04/16/2024, some type of postinflammatory mural calcification is an additional consideration to a tiny dependent collecting system stone. 3. Small to moderate-sized hiatal hernia. Status post sleeve gastrectomy.
== END 2024-05-07 10:54 | disposition home or self-care (01) ==
LOC: EC 05:02
DX: N20.0 Calculus of kidney (principal)
CPT/HCPCS: 74176; 96361; 96374; 96375; 99284

== ENCOUNTER 2024-06-07 16:29 | Emergency (ER) | payer MEDICAID ==
--- NOTE | 2024-06-07 17:07 | ED ---
Abdominal Pain HPI - General Chief Complaint: Abdominal Pain Stated Complaint: Abd pain, nausea Time Seen by Provider: 06/07/24 16:56 Source: patient, RN notes reviewed Mode of arrival: ambulatory Limitations: no limitations - History of Present Illness Initial Comments: This is a 49-year-old female who presents to the emergency department for abdominal pain. Patient reports left lower quadrant abdominal pain beginning this morning. She has associated nausea and vomiting. Denies any fevers or chills. She has been constipated and has not had a bowel movement in 5 to 6 days. She is passing very little gas at this point. She does have a history of kidney stones, but states that this feels different. The only pain that feels similar to this is when she had an ileus a few years ago. MD Complaint: abdominal pain - Related Data Home Medications Medication Instructions Recorded Confirmed Metoprolol Succinate (ER) [Toprol 150 mg PO BID 05/07/18 06/07/24 XL] Pregabalin [Lyrica] 150 mg PO TID 04/21/20 06/07/24 Vortioxetine Hydrobromide 20 mg PO HS 04/21/20 06/07/24 [Trintellix] Zolpidem [Ambien] 10 mg PO HS 04/21/20 06/07/24 ARIPiprazole [Abilify] 2 mg PO HS 03/10/21 06/07/24 amLODIPine [Norvasc] 5 mg PO HS 03/10/21 06/07/24 Cyclobenzaprine [Flexeril] 10 mg PO BID PRN 07/09/23 06/07/24 DULoxetine HCL [Cymbalta] 60 mg PO HS 07/09/23 06/07/24 cloNIDine HCL [Catapres] 0.1 mg PO HS 07/09/23 06/07/24 Albuterol Inhaler [Ventolin Hfa 1 - 2 puff INHALATION RT-Q6H PRN 02/11/24 06/07/24 Inhaler] Ondansetron Odt [Zofran ODT] 4 mg PO DAILY PRN 03/31/24 06/07/24 Butalb/APAP/Caff 50-325-40Mg 1 tab PO Q6H PRN 06/07/24 06/07/24 [Fioricet 50-325-40] Rizatriptan Benzoate [Rizatriptan] 10 mg PO BID PRN MDD 20 mg 06/07/24 06/07/24 hydroCHLOROthiazide [Hydrodiuril] 25 mg PO HS 06/07/24 06/07/24 Previous Rx's Medication Instructions Recorded Ketorolac [Toradol] 10 mg PO Q6HR PRN #15 tab 06/07/24 Metoclopramide [Reglan] 10 mg PO Q6H PRN #30 tab 06/07/24 Ondansetron Odt [Zofran Odt] 4 mg PO Q8HR PRN #30 tab 06/07/24 Allergies Allergy/AdvReac Type Severity Reaction Status Date / Time ofloxacin [From Floxin] AdvReac Unknown Hallucinati Verified 06/07/24 20:29 ons SAI Inhibitors AdvReac ANGIOEDEMA Verified 06/07/24 20:29 bupropion [From Wellbutrin] AdvReac seizure Verified 06/07/24 20:29 venlafaxine [From Effexor] AdvReac seizure Verified 06/07/24 20:29 Review of Systems ROS Statement: Those systems with pertinent positive or pertinent negative responses have been documented in the HPI. ROS Other: All systems not noted in ROS Statement are negative. Past Medical History Past Medical History: GERD/Reflux, Hypertension, Osteoarthritis (OA), Pneumonia, Renal Disease Additional Past Medical History / Comment(s): kidney stones/septic stone, environmental allergies, pneumonia aug 2021 post-op, herniated discs, occasional tachycardia, ileus History of Any Multi-Drug Resistant Organisms: VRE Date of last positivie culture/infection: 01/17/24 MDRO Source:: urine Past Surgical History: Adenoidectomy, Bariatric Surgery, Section, Cholecystectomy, Hysterectomy, Joint Replacement, Orthopedic Surgery, Tonsille ctomy Additional Past Surgical History / Comment(s): 08/09/23 cystoscopy with L lithotripsy/L stent removed, left knee replacement, arthroscopy right knee, lap band 16 yrs ago- no fluid in band per pt. surgery at [facility]), 03/23/22 trigger finger, KIDNEY STONE SX, gastric sleeve 10/11, ankle cyst removed as child, samaria ureter stents Past Anesthesia/Blood Transfusion Reactions: Postoperative Nausea & Vomiting (PONV) Additional Past Anesthesia/Blood Transfusion Reaction / Comment(s): grandmother- difficulty waking up, slight fever one time but not ever told it was malignant hyperthermia Past Psychological History: Depression Smoking Status: Never smoker Past Alcohol Use History: None Reported Past Drug Use History: None Reported - Past Family History Mother Family Medical History: Cancer, Hypertension General Exam Limitations: no limitations General appearance: alert, in no apparent distress Head exam: Present: atraumatic, normocephalic, normal inspection Respiratory exam: Present: normal lung sounds bilaterally. Absent: respiratory distress, wheezes, rales, rhonchi, stridor Cardiovascular Exam: Present: regular rate, normal rhythm, normal heart sounds. Absent: systolic murmur, diastolic murmur, rubs, gallop, clicks GI/Abdominal exam: Present: soft, tenderness (LLQ), normal bowel sounds. Absent: distended Neurological exam: Present: alert, oriented X3, CN II-XII intact Psychiatric exam: Present: normal affect, normal mood Skin exam: Present: warm, dry, intact, normal color. Absent: rash Course Vital Signs 06/07/24 06/07/24 16:32 21:18 Temperature 97.7 F 97.8 F Pulse Rate 85 69 Respiratory 14 18 Rate Blood Pressure 143/87 112/69 O2 Sat by Pulse 96 100 Oximetry Medical Decision Making - Medical Decision Making This is a 49 year old female who presents to the emergency department for abdominal pain. Was pt. sent in by a medical professional or institution? @ -No Did you speak to anyone other than the patient for history? @ -No Did you review nursing and triage notes? @ -Yes, and I agree, it is accurate with regards to the patient's symptoms. Were old charts reviewed? @ -No Differential Diagnosis? @ -Differential Abdominal Pain Women: Appendicitis, Cholecystitis, diverticulosis, ischemic bowel, pancreatitis, hepatitis, UTI, gastroenteritis, AAA, incarcerated hernia, bowel obstruction, constipation, inflammatory bowel, hepatitis, peptic ulcer disease, splenic infarction, perforated viscus, vulvitis, ovarian torsion, PID, kidney stone, placenta abruption, this is not meant to be an all-inclusive list EKG interpreted by me (3pts min.)? @ -EKG interpreted by me demonstrating the following: Sinus rhythm. V entricular rate 76 bpm, MS interval 160 ms, QRS duration 101 ms, QTc 391 ms. X-rays interpreted by me (1pt min.)? @ -Not obtained CT interpreted by me (1pt min.)? @ -CT scan of the abdomen and pelvis obtained. My interpretation identifies no evidence of bowel wall thickening or free air. U/S interpreted by me (1pt. min.)? @ -Not obtained What testing was considered but not performed? (CT, X-rays, U/S, labs)? Why? @ -None What meds were considered but not given? Why? @ -None Did you discuss the management of the patient with other professionals? @ -No Did you reconcile home meds? @ -No Was smoking cessation discussed for >3mins.? @ -No Was critical care preformed (if so, how long)? @ -No Were there social determinants of health that impacted care today? How? (Homelessness, low income, unemployed, alcoholism, drug addiction, transportation, low edu. Level, literacy, decrease access to med. care, [facility], rehab)? @ -No Was there de-escalation of care discussed even if they declined? (Discuss DNR or withdrawal of care, Hospice)? @ -No What co-morbidities impacted this encounter? (DM, HTN, Smoking, COPD, CAD, Cancer, CVA, Hep., AIDS, mental health diagnosis, sleep apnea, morbid obesity)? @ -GERD Was patient admitted / discharged? @ -Discharged. Lab work demonstrates leukocytosis with a white blood cell count of 13. Lactic acid elevated at 3.1. Findings are also suggestive of dehydration. Urinalysis is not overly suggestive of infection. CT scan of the abdomen and pelvis reveals no acute process. Symptoms well-controlled in the emergency department and she was tolerating oral intake. She felt comfortable discharge home at that point. Prescription for Zofran, Reglan, and Toradol provided with dosing instructions reviewed. Advised she slowly advance her diet as tolerated and remain well-hydrated. Patient discharged home in stable condition. Case discussed with ED attending Dr. Amezcua. Return precautions reviewed in depth, the patient is instructed to return to the emergency department with any new, worsening, or concerning symptoms. Patient verbalized understanding. Undiagnosed new problem with uncertain prognosis? @ -None Drug Therapy requiring intensive monitoring for toxicity (Heparin, Nitro, Insulin, Cardizem)? @ -None Were any procedures done? @ -None Diagnosis/symptom? @ -Abdominal pain, nausea and vomiting Acute, or Chronic, or Acute on Chronic? @ -Acute Uncomplicated (without systemic symptoms) or Complicated (systemic symptoms)? @ -Uncomplicated Side effects of treatment? @ -None Exacerbation, Progression, or Severe Exacerbation] @ -Not applicable Poses a threat to life or bodily function? @ -No - Lab Data Result diagrams: 06/07/24 17:32 06/07/24 19:03 Lab Results 06/07/24 06/07/24 06/07/24 Range/Units 17:32 17:32 17:54 WBC 13.0 H (3.8-10.6) k/uL RBC 5.06 (3.80-5.40) m/uL Hgb 13.9 (11.4-16.0) gm/dL Hct 41.5 (34.0-46.0) % MCV 82.1 (80.0-100.0) fL MCH 27.5 (25.0-35.0) pg MCHC 33.6 (31.0-37.0) g/dL RDW 15.6 H (11.5-15.5) % Plt Count 203 (150-450) k/uL MPV 8.5 Neutrophils % 87 % Lymphocytes % 7 % Monocytes % 4 % Eosinophils % 0 % Basophils % 0 % Neutrophils # 11.3 H (1.3-7.7) k/uL Lymphocytes # 0.9 L (1.0-4.8) k/uL Monocytes # 0.6 (0-1.0) k/uL Eosinophils # 0.0 (0-0.7) k/uL Basophils # 0.1 (0-0.2) k/uL Hypochromasia Moderate Sodium (137-145) mmol/L Potassium (3.5-5.1) mmol/L Chloride (98-107) mmol/L Carbon Dioxide (22-30) mmol/L Anion Gap mmol/L BUN (7-17) mg/dL Creatinine (0.52-1.04) mg/dL Est GFR (CKD-EPI)AfAm (>60 ml/min/1.73 sqM) Est GFR (CKD-EPI)NonAf (>60 ml/min/1.73 sqM) Glucose (74-99) mg/dL Lactic Ac Sepsis Rflx Plasma Lactic Acid Pietro 3.1 H* (0.7-2.0) mmol/L Calcium (8.4-10.2) mg/dL Phosphorus (2.5-4.5) mg/dL Magnesium (1.6-2.3) mg/dL Total Bilirubin (0.2-1.3) mg/dL AST (14-36) U/L ALT (4-34) U/L Alkaline Phosphatase (38-126) U/L Total Protein (6.3-8.2) g/dL Albumin (3.5-5.0) g/dL Amylase (30-110) U/L Lipase (23-300) U/L Urine Color Dark Brown Urine Appearance Cloudy H (Clear) Urine pH 5.5 (5.0-8.0) Ur Specific [place] 1.034 (1.001-1.035) Urine Protein 1+ H (Negative) Urine Glucose (UA) Negative (Negative) Urine Ketones Trace H (Negative) Urine Blood Trace H (Negative) Urine Nitrite Negative (Negative) Urine Bilirubin 1+ H (Negative) Urine Urobilinogen 6.0 (<2.0) mg/dL Ur Leukocyte Esterase Trace H (Negative) Urine RBC 48 H (0-5) /hpf Urine WBC 14 H (0-5) /hpf Ur Squamous Epith Cells 8 H (0-4) /hpf Hyaline Casts 55 H (0-2) /lpf Urine Mucus Few H (None) /hpf 06/07/24 06/07/24 Range/Units 18:57 19:03 WBC (3.8-10.6) k/uL RBC (3.80-5.40) m/uL Hgb (11.4-16.0) gm/dL Hct (34.0-46.0) % MCV (80.0-100.0) fL MCH (25.0-35.0) pg MCHC (31.0-37.0) g/dL RDW (11.5-15.5) % Plt Count (150-450) k/uL MPV Neutrophils % % Lymphocytes % % Monocytes % % Eosinophils % % Basophils % % Neutrophils # (1.3-7.7) k/uL Lymphocytes # (1.0-4.8) k/uL Monocytes # (0-1.0) k/uL Eosinophils # (0-0.7) k/uL Basophils # (0-0.2) k/uL Hypochromasia Sodium 137 (137-145) mmol/L Potassium 3.7 (3.5-5.1) mmol/L Chloride 104 (98-107) mmol/L Carbon Dioxide 24 (22-30) mmol/L Anion Gap 9 mmol/L BUN 30 H (7-17) mg/dL Creatinine 1.13 H (0.52-1.04) mg/dL Est GFR (CKD-EPI)AfAm 65 (>60 ml/min/1.73 sqM) Est GFR (CKD-EPI)NonAf 57 (>60 ml/min/1.73 sqM) Glucose 167 H (74-99) mg/dL Lactic Ac Sepsis Rflx Y Plasma Lactic Acid Pietro (0.7-2.0) mmol/L Calcium 9.3 (8.4-10.2) mg/dL Phosphorus 3.7 (2.5-4.5) mg/dL Magnesium 1.9 (1.6-2.3) mg/dL Total Bilirubin 0.5 (0.2-1.3) mg/dL AST 19 (14-36) U/L ALT 17 (4-34) U/L Alkaline Phosphatase 126 (38-126) U/L Total Protein 6.3 (6.3-8.2) g/dL Albumin 3.9 (3.5-5.0) g/dL Amylase 114 H (30-110) U/L Lipase 63 (23-300) U/L Urine Color Urine Appearance (Clear) Urine pH (5.0-8.0) Ur Specific [place] (1.001-1.035) Urine Protein (Negative) Urine Glucose (UA) (Negative) Urine Ketones (Negative) Urine Blood (Negative) Urine Nitrite (Negative) Urine Bilirubin (Negative) Urine Urobilinogen (<2.0) mg/dL Ur Leukocyte Esterase (Negative) Urine RBC (0-5) /hpf Urine WBC (0-5) /hpf Ur Squamous Epith Cells (0-4) /hpf Hyaline Casts (0-2) /lpf Urine Mucus (None) /hpf - Radiology Data Radiology results: report reviewed, image reviewed Disposition Clinical Impression: Abdominal pain, Nausea and vomiting Disposition: HOME SELF-CARE Instructions (If sedation given, give patient instructions): Acute Nausea and Vomiting (ED), Abdominal Pain (ED) Additional Instructions: Return to the emergency department with any new, worsening, or concerning symptoms. Take the Toradol with Tylenol as needed for pain relief. If you choose to take the Toradol, do not take any other anti-inflammatories such as ibuprofen, take one or the other. You can take the Zofran up to every 8 hours and the Reglan up to every 6 hours as needed for nausea and vomiting. Slowly advance your diet as tolerated and remain well-hydrated. Follow up with your primary care provider in 1-2 days. Prescriptions: Metoclopramide [Reglan] 10 mg PO Q6H PRN #30 tab PRN Reason: Nausea And Vomiting Ketorolac [Toradol] 10 mg PO Q6HR PRN #15 tab PRN Reason: Pain Ondansetron Odt [Zofran Odt] 4 mg PO Q8HR PRN #30 tab PRN Reason: Nausea And Vomiting Is patient prescribed a controlled substance at d/c from ED?: No Referrals: Rosa Stewart MD [Primary Care Provider] - 1-2 days Time of Disposition: 20:57
[2024-06-07 17:54] LABS: Basophils # (A) 0.1 k/uL (0-0.2); Basophils % (A) 0 %; Eosinophils % (A) 0 %; HCT 41.5 % (34.0-46.0); HGB 13.9 gm/dL (11.4-16.0); Hypochromasia Moderate; Lymphocytes # (A) 0.9 k/uL (1.0-4.8); Lymphocytes % (A) 7 %; MCH 27.5 pg (25.0-35.0); MCHC 33.6 g/dL (31.0-37.0); MCV 82.1 fL (80.0-100.0); Mean Platelet Volume 8.5; Monocytes # (A) 0.6 k/uL (0-1.0); Monocytes % (A) 4 %; Neutrophils # (A) 11.3 k/uL (1.3-7.7); Neutrophils % (A) 87 %; Platelet Count 203 k/uL (150-450); RBC 5.06 m/uL (3.80-5.40); RDW 15.6 % (11.5-15.5)
[2024-06-07 18:00] LABS: Appearance,Urine Cloudy (Clear); Bilirubin,Urine 1+ (Negative); Blood,Urine Trace (Negative); Color,Urine Dark Brown; Glucose,Urine (UA) Negative (Negative); Hyaline Casts,Urine 55 /lpf (0-2); Ketones,Urine Trace (Negative); Leukocyte Esterase,Urine Trace (Negative); Mucus,Urine Few /hpf; Nitrite,Urine Negative (Negative); PH, Urine 5.5 (5.0-8.0); Protein,Urine 1+ (Negative); RBC,Urine 48 /hpf (0-5); Specific Gravity,Urine 1.034 (1.001-1.035); Squamous Epithelial Cell,Urine 8 /hpf (0-4); WBC,Urine 14 /hpf (0-5)
[2024-06-07] MEDS: KETOROLAC 15 MG/ML 1 ML VIAL IVP STA (18:13)
[2024-06-07] MEDS: MORPHINE SULFATE 4 MG/ML SYRINGE IVP STA (18:14)
[2024-06-07] MEDS: ONDANSETRON 4 MG/2 ML VIAL IVP STA (18:15)
[2024-06-07] MEDS: PANTOPRAZOLE 40 MG/10 ML VIAL IVP STA (18:16)
[2024-06-07] MEDS: SODIUM CHLORIDE 0.9% 1,000 ML IV STA (18:17)
[2024-06-07 19:33] LABS: ALT 17 U/L (4-34); AST 19 U/L (14-36); African American GFR (CKD) 65 (>60 ml/min/1.73 sqM); Albumin 3.9 g/dL (3.5-5.0); Alkaline Phosphatase 126 U/L (38-126); Amylase 114 U/L (30-110); Anion Gap 9 mmol/L; Blood Urea Nitrogen 30 mg/dL (7-17); Calcium 9.3 mg/dL (8.4-10.2); Carbon Dioxide 24 mmol/L (22-30); Chloride 104 mmol/L (98-107); Glucose 167 mg/dL (74-99); Lipase 63 U/L (23-300); Magnesium 1.9 mg/dL (1.6-2.3); Non-African American GFR(CKD) 57 (>60 ml/min/1.73 sqM); Phosphorus 3.7 mg/dL (2.5-4.5); Potassium 3.7 mmol/L (3.5-5.1); Sodium 137 mmol/L (137-145); Total Bilirubin 0.5 mg/dL (0.2-1.3); Total Protein 6.3 g/dL (6.3-8.2)
[2024-06-07] MEDS: FAMOTIDINE 20 MG/2 ML VIAL IV STA (20:01)
--- NOTE | 2024-06-07 20:16 | CT ---
EXAMINATION TYPE: CT abdomen pelvis w con DATE OF EXAM: 06/07/2024 COMPARISON: 05/07/2024 INDICATION: LLQ pain. No N/V DLP: 2003.6 mGycm, Automated exposure control for dose reduction was used. CONTRAST: 80ml mL of Isovue 300. Study performed without Oral Contrast TECHNIQUE: Axial images were obtained from above the diaphragm to the pubic rami in the axial plane a t 5 mm thick sections. Reconstructed images are reviewed on the computer in the coronal plane. FINDINGS: Limited CT sections are obtained the lung bases. The lung bases are clear. Small hiatal hernia is p resent. Gastric sleeve is evident. CT ABDOMEN: Liver: Normal Spleen: Normal Pancreas: Normal Adrenal glands: The adrenal glands are normal. Gallbladder: Surgically absent Kidneys: No masses are evident. No hydronephrosis is present. No cysts are present. Delayed images were obtained through the kidneys, which remain unremarkable. Aorta: Normal Inferior vena cava: Normal. CT PELVIS: Loops of bowel within the abdomen and pelvis are normal. Study is a lateral contrast limiting bow el evaluation. Appendix: Normal as visualized. Urinary bladder: Normal. Genitourinary structures: Uterus and ovaries are not identified. Osseous structures: No suspicious lytic or sclerotic lesions. IMPRESSION: 1. No suspicious abnormality to account for left lower quadrant pain [facility], , 06/07/2024 8:14 PM
[2024-06-07] MEDS: METOCLOPRAMIDE 5 MG/ML 2 ML VIAL IVP STA (20:31)
[2024-06-07] MEDS: SODIUM CHLORIDE 0.9% 500 ML 500 ML IV STA (20:31)
[2024-06-07 21:19] VITALS: BP 112/69; PULSE 69; RESP 18; TEMP 97.8
== END 2024-06-07 21:19 | disposition home or self-care (01) ==
LOC: EC 16:29
CPT/HCPCS: 36415; 74177; 80053; 81001; 82150; 83605; 83690; 83735; 84100; 85025; 93005; 96361; 96374; 96375; 99284

== ENCOUNTER 2024-07-09 15:37 | Emergency (ER) | payer MEDICAID ==
--- NOTE | 2024-07-09 16:10 | ED ---
Female Urogenital HPI - General Source: patient, RN notes reviewed Mode of arrival: ambulatory Limitations: no limitations <Vivi Pedroza - Last Filed: 07/09/24 16:10> - General Source: patient, RN notes reviewed Mode of arrival: ambulatory Limitations: no limitations <Fortunato Hernandez - Last Filed: 07/09/24 19:43> - General Chief complaint: Urogenital Stated complaint: L sided flank pain Time Seen by Provider: 07/09/24 16:10 - History of Present Illness Initial comments: Quick note: 49-year-old female presented to ER with a chief complaint of left flank pain. Patient has a history of kidney stones. She states pain started this afternoon. Denies any hematuria or vomiting. Endorses nausea. Denies fevers. (Vivi Pedroza) 49-year-old female presents emergency department complaint of left flank pain. Patient has a history of kidney stone states it feels very similar. She denies any dysuria no fever chills she does admit to nausea without vomiting no chest pain no shortness of breath no other associated symptoms. (Fortunato Hernandez) - Related Data Home Medications Medication Instructions Recorded Confirmed Metoprolol Succinate (ER) [Toprol 150 mg PO BID 05/07/18 06/07/24 XL] Pregabalin [Lyrica] 150 mg PO TID 04/21/20 06/07/24 Vortioxetine Hydrobromide 20 mg PO HS 04/21/20 06/07/24 [Trintellix] Zolpidem [Ambien] 10 mg PO HS 04/21/20 06/07/24 ARIPiprazole [Abilify] 2 mg PO HS 03/10/21 06/07/24 amLODIPine [Norvasc] 5 mg PO HS 03/10/21 06/07/24 Cyclobenzaprine [Flexeril] 10 mg PO BID PRN 07/09/23 06/07/24 DULoxetine HCL [Cymbalta] 60 mg PO HS 07/09/23 06/07/24 cloNIDine HCL [Catapres] 0.1 mg PO HS 07/09/23 06/07/24 Albuterol Inhaler [Ventolin Hfa 1 - 2 puff INHALATION RT-Q6H PRN 02/11/24 06/07/24 Inhaler] Ondansetron Odt [Zofran ODT] 4 mg PO DAILY PRN 03/31/24 06/07/24 Butalb/APAP/Caff 50-325-40Mg 1 tab PO Q6H PRN 06/07/24 06/07/24 [Fioricet 50-325-40] Rizatriptan Benzoate [Rizatriptan] 10 mg PO BID PRN MDD 20 mg 06/07/24 06/07/24 hydroCHLOROthiazide [Hydrodiuril] 25 mg PO HS 06/07/24 06/07/24 Previous Rx's Medication Instructions Recorded Ketorolac [Toradol] 10 mg PO Q6HR PRN #15 tab 06/07/24 Metoclopramide [Reglan] 10 mg PO Q6H PRN #30 tab 06/07/24 Ondansetron Odt [Zofran Odt] 4 mg PO Q8HR PRN #30 tab 06/07/24 Ketorolac [Toradol] 10 mg PO Q8HR #15 tab 07/09/24 Ondansetron Odt [Zofran Odt] 4 mg PO Q8HR PRN #10 tab 07/09/24 Allergies Allergy/AdvReac Type Severity Reaction Status Date / Time ofloxacin [From Floxin] AdvReac Unknown Hallucinati Verified 06/07/24 20:29 ons SAI Inhibitors AdvReac ANGIOEDEMA Verified 06/07/24 20:29 bupropion [From Wellbutrin] AdvReac seizure Verified 06/07/24 20:29 venlafaxine [From Effexor] AdvReac seizure Verified 06/07/24 20:29 Review of Systems ROS Other: All systems not noted in ROS Statement are negative. <Vivi Pedroza - Last Filed: 07/09/24 16:10> ROS Other: All systems not noted in ROS Statement are negative. <Fortunato Hernandez - Last Filed: 07/09/24 19:43> ROS Statement: Those systems with pertinent positive or pertinent negative responses have been documented in the HPI. Past Medical History Past Medical History: GERD/Reflux, Hypertension, Osteoarthritis (OA), Pneumonia, Renal Disease Additional Past Medical History / Comment(s): kidney stones/septic stone, environmental allergies, pneumonia aug 2021 post-op, herniated discs, occasional tachycardia, ileus History of Any Multi-Drug Resistant Organisms: ESBL Date of last positivie culture/infection: 01/17/24 MDRO Source:: urine Past Surgical History: Adenoidectomy, Bariatric Surgery, Section, Cholecystectomy, Hysterectomy, Joint Replacement, Orthopedic Surgery, Tonsillectomy Additional Past Surgical History / Comment(s): 08/09/23 cystoscopy with L lithotripsy/L stent removed, left knee replacement, arthroscopy right knee, lap band 16 yrs ago- no fluid in band per pt. surgery at [facility]), 03/23/22 trigger finger, KIDNEY STONE SX, gastric sleeve 10/11, ankle cyst removed as child, samaria ureter stents Past Anesthesia/Blood Transfusion Reactions: Postoperative Nausea & Vomiting (PONV) Additional Past Anesthesia/Blood Transfusion Reaction / Comment(s): grandmother- difficulty waking up, slight fever one time but not ever told it was malignant hyperthermia Past Psychological History: Depression Smoking Status: Never smoker Past Alcohol Use History: None Reported Past Drug Use History: None Reported - Past Family History Mother Family Medical History: Cancer, Hypertension <Vivi Pedroza - Last Filed: 07/09/24 16:10> General Exam Limitations: no limitations <Vivi Pedroza - Last Filed: 07/09/24 16:10> General appearance: alert, in no apparent distress Head exam: Present: atraumatic, normocephalic, normal inspection Eye exam: Present: normal appearance, PERRL, EOMI. Absent: scleral icterus, conjunctival injection, periorbital swelling Respiratory exam: Present: normal lung sounds bilaterally. Absent: respiratory distress, wheezes, rales, rhonchi, stridor Cardiovascular Exam: Present: regular rate, normal rhythm, normal heart sounds. Absent: systolic murmur, diastolic murmur, rubs, gallop, clicks GI/Abdominal exam: Present: soft, normal bowel sounds. Absent: distended, tenderness, guarding, rebound, rigid Back exam: Present: CVA tenderness (L). Absent: CVA tenderness (R) <Fortunato Hernandez - Last Filed: 07/09/24 19:43> - General Exam Comments Initial Comments: Visual Physical Exam Vital signs reviewed General: Well-appearing, nontoxic, no acute distress. Head: Normocephalic, atraumatic Eyes: PERRLA, EOMI ENT: Airway patent Chest: Nonlabored breathing Skin: No visual rash, normal skin tone Neuro: Alert and oriented 3 Musculoskeletal: No gross abnormalities (Vivi Pedroza) Course Vital Signs 07/09/24 15:51 Temperature 98.7 F Pulse Rate 68 Respiratory 20 Rate Blood Pressure 151/85 O2 Sat by Pulse 99 Oximetry Medical Decision Making <Vivi Pedroza - Last Filed: 07/09/24 16:10> <Fortunato Hernandez - Last Filed: 07/09/24 19:43> - Medical Decision Making I performed the quick note portion of this chart. Electronically signed by Vivi Pedroza PA-C (Vivi Pedroza) Was pt. sent in by a medical professional or institution (DAR Rocha, BARN AND PROPERTY MANAGER, urgent care, hospital, or group home...) When possible be specific @ -No Did you speak to anyone other than the patient for history (EMS, parent, family, police, friend...)? What history was obtained from this source @ -No Did you review nursing and triage notes (agree or disagree)? Why? @ -I reviewed and agree with nursing and triage notes Were old charts reviewed (outside hosp., previous admission, EMS record, old EKG, old radiological studies, urgent care reports/EKG's, group home records)? Report findings @ -No old charts were reviewed Differential Diagnosis (chest pain, altered mental status, abdominal pain women, abdominal pain men, vaginal bleeding, weakness, fever, dyspnea, syncope, headache, dizziness, GI bleed, back pain, seizure, CVA, palpatations, mental health, musculoskeletal)? @ -Differential Abdominal Pain Women: Appendicitis, Cholecystitis, diverticulosis, ischemic bowel, pancreatitis, hepatitis, UTI, gastroenteritis, AAA, incarcerated hernia, bowel obstruction, constipation, inflammatory bowel, hepatitis, peptic ulcer disease, splenic infarction, perforated viscus, vulvitis, ovarian torsion, PID, kidney stone, placenta abruption, this is not meant to be an all-inclusive list EKG interpreted by me (3pts min.). @ -[None X-rays interpreted by me (1pt min.). @ -None done CT interpreted by me (1pt min.). @ -None done U/S interpreted by me (1pt. min.). @ -None done What testing was considered but not performed or refused? (CT, X-rays, U/S, labs)? Why? @ -None What meds were considered but not given or refused? Why? @ -None Did you discuss the management of the patient with other professionals (andreia esteban i.e. , PA, BARN AND PROPERTY MANAGER, lab, RT, psych nurse, licensed clinical social worker, adding machine mechanic, teacher, loan officer, casey saw operator)? Give summary @ -No Was smoking cessation discussed for >3mins.? @ -No Was critical care preformed (if so, how long)? @ -No Were there social determinants of health that impacted care today? How? (Homelessness, low income, unemployed, alcoholism, drug addiction, transportation, low edu. Level, literacy, decrease access to med. care, detention, rehab)? @ -No Was there de-escalation of care discussed even if they declined (Discuss DNR or withdrawal of care, Hospice)? DNR status @ -No What co-morbidities impacted this encounter? (DM, HTN, Smoking, COPD, CAD, Cancer, CVA, ARF, Chemo, Hep., AIDS, mental health diagnosis, sleep apnea, morbid obesity)? @ -None Was patient admitted / discharged? Hospital course, mention meds given and route, prescriptions, significant lab abnormalities, going to OR and other pertinent info. @ -Discharge patient presented for left flank pain. Patient urinalysis unremarkable. She states it feels like it is on the past I did offer laboratory studies she feels comfortable with Toradol and discharge and close follow-up. Vital stable Undiagnosed new problem with uncertain prognosis? @ -No Drug Therapy requiring intensive monitoring for toxicity (Heparin, Nitro, Insulin, Cardizem)? @ -No Were any procedures done? @ -No Diagnosis/symptom? @ -Flank pain Acute, or Chronic, or Acute on Chronic? @ -Acute Uncomplicated (without systemic symptoms) or Complicated (systemic symptoms)? @ -Uncomplicated Side effects of treatment? @ -No Exacerbation, Progression, or Severe Exacerbation? @ -No Poses a threat to life or bodily function? How? (Chest pain, [place], [place], pneumonia, PE, COPD, DKA, ARF, appy, cholecystitis, CVA, Diverticulitis, Homicidal, Suicidal, threat to staff... and all critical care pts) @ -No (Fortunato Hernandez) - Lab Data Lab Results 07/09/24 Range/Units 15:53 Urine Color Colorless Urine Appearance Clear (Clear) Urine pH 7.0 (5.0-8.0) Ur Specific [place] 1.017 (1.001-1.035) Urine Protein Negative (Negative) Urine Glucose (UA) Negative (Negative) Urine Ketones Negative (Negative) Urine Blood Negative (Negative) Urine Nitrite Negative (Negative) Urine Bilirubin Negative (Negative) Urine Urobilinogen <2.0 (<2.0) mg/dL Ur Leukocyte Esterase Negative (Negative) Disposition <Vivi Pedroza - Last Filed: 07/09/24 16:10> Is patient prescribed a controlled substance at d/c from ED?: No Time of Disposition: 19:38 <Fortunato Hernandez - Last Filed: 07/09/24 19:43> Clinical Impression: Flank pain Disposition: HOME SELF-CARE Condition: Stable Instructions (If sedation given, give patient instructions): Flank Pain (ED) Additional Instructions: Please return to the Emergency Department if symptoms worsen or any other concerns. Prescriptions: Ketorolac [Toradol] 10 mg PO Q8HR #15 tab Ondansetron Odt [Zofran Odt] 4 mg PO Q8HR PRN #10 tab PRN Reason: Nausea Referrals: Rosa Stewart MD [Primary Care Provider] - 1-2 days
[2024-07-09 16:11] LABS: Appearance,Urine Clear (Clear); Bilirubin,Urine Negative (Negative); Blood,Urine Negative (Negative); Color,Urine Colorless; Glucose,Urine (UA) Negative (Negative); Ketones,Urine Negative (Negative); Leukocyte Esterase,Urine Negative (Negative); Nitrite,Urine Negative (Negative); Protein,Urine Negative (Negative); Specific Gravity,Urine 1.017 (1.001-1.035); Urobilinogen,Urine <2.0 mg/dL (<2.0)
[2024-07-09] MEDS: ONDANSETRON 4 MG ODT STARTER PACK 2 TAB BTL PO STA (19:46)
[2024-07-09] MEDS: HYDROcodone/APAP 5-325MG 1 EACH TAB PO STA (19:46)
[2024-07-09] MEDS: KETOROLAC 15 MG/ML 1 ML VIAL IM STA (19:46)
[2024-07-09 20:09] VITALS: BP 143/82; PULSE 67; RESP 16; TEMP 98.6
== END 2024-07-09 19:50 | disposition home or self-care (01) ==
LOC: EC 15:37
CPT/HCPCS: 81003; 96372; 99283

== ENCOUNTER 2024-07-31 12:29 | Observation (INO) | payer MEDICAID ==
[2024-07-31 13:01] LABS: Basophils # (A) 0.1 k/uL (0-0.2); Basophils % (A) 1 %; Eosinophils # (A) 0.4 k/uL (0-0.7); Eosinophils % (A) 5 %; HCT 37.2 % (34.0-46.0); HGB 11.9 gm/dL (11.4-16.0); Hypochromasia Slight; Lymphocytes # (A) 2.6 k/uL (1.0-4.8); Lymphocytes % (A) 32 %; MCH 25.2 pg (25.0-35.0); MCHC 31.8 g/dL (31.0-37.0); Mean Platelet Volume 8.6; Monocytes # (A) 0.4 k/uL (0-1.0); Monocytes % (A) 5 %; Neutrophils # (A) 4.4 k/uL (1.3-7.7); Neutrophils % (A) 54 %; Platelet Count 251 k/uL (150-450); RBC 4.71 m/uL (3.80-5.40); RDW 15.3 % (11.5-15.5); WBC 8.1 k/uL (3.8-10.6)
[2024-07-31 13:19] LABS: Appearance,Urine Cloudy (Clear); Bacteria,Urine Rare /hpf; Bilirubin,Urine Negative (Negative); Blood,Urine Large (Negative); Color,Urine Yellow; Glucose,Urine (UA) Negative (Negative); Ketones,Urine Negative (Negative); Leukocyte Esterase,Urine Moderate (Negative); Mucus,Urine Many /hpf; Nitrite,Urine Negative (Negative); Protein,Urine 1+ (Negative); RBC,Urine >182 /hpf (0-5); Squamous Epithelial Cell,Urine 7 /hpf (0-4); WBC,Urine 11 /hpf (0-5)
[2024-07-31 13:22] LABS: African American GFR (CKD) >90 (>60 ml/min/1.73 sqM); Anion Gap 4 mmol/L; Blood Urea Nitrogen 14 mg/dL (7-17); Calcium 9.3 mg/dL (8.4-10.2); Carbon Dioxide 28 mmol/L (22-30); Chloride 107 mmol/L (98-107); Glucose 108 mg/dL (74-99); Non-African American GFR(CKD) 82 (>60 ml/min/1.73 sqM); Potassium 4.2 mmol/L (3.5-5.1); Sodium 139 mmol/L (137-145)
--- NOTE | 2024-07-31 13:35 | ED ---
General Adult HPI - General Chief complaint: Urogenital Stated complaint: Back pain Time Seen by Provider: 07/31/24 12:40 Source: patient Mode of arrival: ambulatory Limitations: no limitations - History of Present Illness Initial comments: Dictation was produced using [employer] dictation software. please excuse any grammatical, word or spelling errors. Chief Complaint: 49-year-old female history of ESBL presents to the emergency department with dysuria and left-sided flank pain History of Present Illness: Patient is 49-year-old female she has past medical history of ESBL she has been seen by Dr. Motley in the past from infectious disease. States that for the last several days she has had dysuria and left- sided flank pain. Patient is concerning she is having recurrent UTI. The ROS documented in this emergency department record has been reviewed and confirmed by me. Those systems with pertinent positive or negative responses have been documented in the HPI. All other systems are other negative and/or noncontributory. - Related Data Home Medications Medication Instructions Recorded Confirmed Metoprolol Succinate (ER) [Toprol 150 mg PO BID 05/07/18 06/07/24 XL] Pregabalin [Lyrica] 150 mg PO TID 04/21/20 06/07/24 Vortioxetine Hydrobromide 20 mg PO HS 04/21/20 06/07/24 [Trintellix] Zolpidem [Ambien] 10 mg PO HS 04/21/20 06/07/24 ARIPiprazole [Abilify] 2 mg PO HS 03/10/21 06/07/24 amLODIPine [Norvasc] 5 mg PO HS 03/10/21 06/07/24 Cyclobenzaprine [Flexeril] 10 mg PO BID PRN 07/09/23 06/07/24 DULoxetine HCL [Cymbalta] 60 mg PO HS 07/09/23 06/07/24 cloNIDine HCL [Catapres] 0.1 mg PO HS 07/09/23 06/07/24 Albuterol Inhaler [Ventolin Hfa 1 - 2 puff INHALATION RT-Q6H PRN 02/11/24 06/07/24 Inhaler] Ondansetron Odt [Zofran ODT] 4 mg PO DAILY PRN 03/31/24 06/07/24 Butalb/APAP/Caff 50-325-40Mg 1 tab PO Q6H PRN 06/07/24 06/07/24 [Fioricet 50-325-40] Rizatriptan Benzoate [Rizatriptan] 10 mg PO BID PRN MDD 20 mg 06/07/24 06/07/24 hydroCHLOROthiazide [Hydrodiuril] 25 mg PO HS 06/07/24 06/07/24 Previous Rx's Medication Instructions Recorded Ketorolac [Toradol] 10 mg PO Q6HR PRN #15 tab 06/07/24 Metoclopramide [Reglan] 10 mg PO Q6H PRN #30 tab 06/07/24 Ondansetron Odt [Zofran Odt] 4 mg PO Q8HR PRN #30 tab 06/07/24 Ketorolac [Toradol] 10 mg PO Q8HR #15 tab 07/09/24 Ketorolac [Toradol] 10 mg PO Q8HR #15 tab 07/09/24 Ondansetron Odt [Zofran Odt] 4 mg PO Q8HR PRN #10 tab 07/09/24 Ondansetron Odt [Zofran Odt] 4 mg PO Q8HR PRN #10 tab 07/09/24 Allergies Allergy/AdvReac Type Severity Reaction Status Date / Time ofloxacin [From Floxin] AdvReac Unknown Hallucinati Verified 07/31/24 12:39 ons SAI Inhibitors AdvReac ANGIOEDEMA Verified 07/31/24 12:39 bupropion [From Wellbutrin] AdvReac seizure Verified 07/31/24 12:39 venlafaxine [From Effexor] AdvReac seizure Verified 07/31/24 12:39 Review of Systems ROS Statement: Those systems with pertinent positive or pertinent negative responses have been documented in the HPI. ROS Other: All systems not noted in ROS Statement are negative. Past Medical History Past Medical History: GERD/Reflux, Hypertension, Osteoarthritis (OA), Pneumonia, Renal Disease Additional Past Medical History / Comment(s): kidney stones/septic stone, environmental allergies, pneumonia aug 2021 post-op, herniated discs, occasional tachycardia, ileus History of Any Multi-Drug Resistant Organisms: ESBL Date of last positivie culture/infection: 01/17/24 MDRO Source:: urine Past Surgical History: Adenoidectomy, Bariatric Surgery, Section, Cholecystectomy, Hysterectomy, Joint Replacement, Orthopedic Surgery, Tonsillectomy Additional Past Surgical History / Comment(s): 08/09/23 cystoscopy with L lithotripsy/L stent removed, left knee replacement, arthroscopy right knee, lap band 16 yrs ago- no fluid in band per pt. surgery at [facility]), 03/23/22 trigger finger, KIDNEY STONE SX, gastric sleeve 10/11, ankle cyst removed as child, samaria ureter stents Past Anesthesia/Blood Transfusion Reactions: Postoperative Nausea & Vomiting (PONV) Additional Past Anesthesia/Blood Transfusion Reaction / Comment(s): grandmother- difficulty waking up, slight fever one time but not ever told it was malignant hyperthermia Past Psychological History: Depression Smoking Status: Never smoker Past Alcohol Use History: None Reported Past Drug Use History: None Reported - Past Family History Mother Family Medical History: Cancer, Hypertension General Exam - General Exam Comments Initial Comments: PHYSICAL EXAM: General Impression: Alert and oriented x3, not in acute distress HEENT: Normocephalic atraumatic, extra-ocular movements intact, pupils equal and reactive to light bilaterally, mucous membranes moist. Cardiovascular: Heart regular rate and rhythm Chest: Able to complete full sentences, no retractions, no tachypnea Abdomen: abdomen soft, non-tender, non-distended, no organomegaly Musculoskeletal: Pulses present and equal in all extremities, no peripheral edema Motor: no focal deficits noted Neurological: CN II-XII grossly intact, no focal motor or sensory deficits noted Skin: Intact with no visualized rashes Psych: Normal affect and mood Limitations: no limitations Course Vital Signs 07/31/24 12:37 Temperature 98.5 F Pulse Rate 76 Respiratory 22 Rate Blood Pressure 141/86 O2 Sat by Pulse 97 Oximetry Medical Decision Making - Medical Decision Making Was pt. sent in by a medical professional or institution (, PA, MINER OPERATOR, urgent care, hospital, or group home...) When possible be specific @ -No Did you speak to anyone other than the patient for history (EMS, parent, family, police, friend...)? What history was obtained from this source @ -No Did you review nursing and triage notes (agree or disagree)? Why? @ -I reviewed and agree with nursing and triage notes Were old charts reviewed (outside hosp., previous admission, EMS record, old EKG, old radiological studies, urgent care reports/EKG's, group home records)? Report findings @ -No old charts were reviewed Differential Diagnosis (chest pain, altered mental status, abdominal pain women, abdominal pain men, vaginal bleeding, musculoskeletal, weakness, fever, dyspnea, syncope, headache, dizziness, GI bleed, back pain, seizure, CVA, palpatations, mental health)? @ -UTI, cystitis, pyelonephritis EKG interpreted by me (3pts min.). @ -None done X-rays interpreted by me (1pt min.). @ -None done CT interpreted by me (1pt min.). @ -None done U/S interpreted by me (1pt. min.). @ -None done What testing was considered but not performed or refused? (CT, X-rays, U/S, labs)? Why? @ -None What meds were considered but not given or refused? Why? @ -None Was smoking cessation discussed for >3mins.? @ -No Were there social determinants of health that impacted care today? How? (Homelessness, low income, unemployed, alcoholism, drug addiction, cooper sportation, low edu. Level, literacy, decrease access to med. care, usp, rehab)? @ -No Was there de-escalation of care discussed even if they declined (Discuss DNR or withdrawal of care, Hospice)? DNR status @ -No What co-morbidities impacted this encounter? (DM, HTN, Smoking, COPD, CAD, Cancer, CVA, ARF, Chemo, Hep., AIDS, mental health diagnosis, sleep apnea, morbid obesity)? @ -None Was patient admitted / discharged? Hospital course, mention meds given and route, prescriptions, significant lab abnormalities, going to OR and other pertinent info. @ -49-year-old female with history of ESBL presents to the emergency department for UTI symptoms. Vital signs upon arrival are within acceptable limits. Laboratory evaluation obtained. CBC metabolic panel negative. Urinalysis positive for UTI. Patient has history of ESBL. Patient started on ertapenem. She is high risk will be admitted consultation infectious disease. Case discussed with hospitalist for admission Did you discuss the management of the patient with other professionals (professionals i.e. , PA, MINER OPERATOR, lab, RT, psych nurse, social services analyst, miller distillery, teacher, commercial loan collection officer, lining caser)? Give summary @ -See above Was critical care preformed (if so, how long)? @ -No Undiagnosed new problem with uncertain prognosis? @ -No Drug Therapy requiring intensive monitoring for toxicity (Heparin, Nitro, Insulin, Cardizem)? @ -No Were any procedures done? @ -No Diagnosis/symptom? Acute, or Chronic, or Acute on Chronic? Uncomplicated (without systemic symptoms) or Complicated (systemic symptoms)? @ -UTI, suspect ESBL Side effects of treatment? @ -No Exacerbation, Progression, or Severe Exacerbation? @ -No Poses a threat to life or bodily function? How? (Chest pain, [place], [place], pneumonia, PE, COPD, DKA, ARF, appy, cholecystitis, CVA, Diverticulitis, Homicidal, Suicidal, threat to staff... and all critical care pts) @ -yes - Lab Data Result diagrams: 07/31/24 13:59 07/31/24 13:59 Lab Results 07/31/24 07/31/24 07/31/24 Range/Units 12:49 12:49 12:49 WBC 8.1 (3.8-10.6) k/uL RBC 4.71 (3.80-5.40) m/uL Hgb 11.9 (11.4-16.0) gm/dL Hct 37.2 (34.0-46.0) % MCV 79.0 L (80.0-100.0) fL MCH 25.2 (25.0-35.0) pg MCHC 31.8 (31.0-37.0) g/dL RDW 15.3 (11.5-15.5) % Plt Count 251 (150-450) k/uL MPV 8.6 Neutrophils % 54 % Lymphocytes % 32 % Monocytes % 5 % Eosinophils % 5 % Basophils % 1 % Neutrophils # 4.4 (1.3-7.7) k/uL Lymphocytes # 2.6 (1.0-4.8) k/uL Monocytes # 0.4 (0-1.0) k/uL Eosinophils # 0.4 (0-0.7) k/uL Basophils # 0.1 (0-0.2) k/uL Hypochromasia Slight Sodium 139 (137-145) mmol/L Potassium 4.2 (3.5-5.1) mmol/L Chloride 107 (98-107) mmol/L Carbon Dioxide 28 (22-30) mmol/L Anion Gap 4 mmol/L BUN 14 (7-17) mg/dL Creatinine 0.83 (0.52-1.04) mg/dL Est GFR (CKD-EPI)AfAm >90 (>60 ml/min/1.73 sqM) Est GFR (CKD-EPI)NonAf 82 (>60 ml/min/1.73 sqM) Glucose 108 H (74-99) mg/dL Calcium 9.3 (8.4-10.2) mg/dL Urine Color Yellow Urine Appearance Cloudy H (Clear) Urine pH 6.0 (5.0-8.0) Ur Specific [place] 1.030 (1.001-1.035) Urine Protein 1+ H (Negative) Urine Glucose (UA) Negative (Negative) Urine Ketones Negative (Negative) Urine Blood Large H (Negative) Urine Nitrite Negative (Negative) Urine Bilirubin Negative (Negative) Urine Urobilinogen 3.0 (<2.0) mg/dL Ur Leukocyte Esterase Moderate H (Negative) Urine RBC >182 H (0-5) /hpf Urine WBC 11 H (0-5) /hpf Ur Squamous Epith Cells 7 H (0-4) /hpf Urine Bacteria Rare H (None) /hpf Urine Mucus Many H (None) /hpf 07/31/24 07/31/24 Range/Units 13:59 13:59 WBC 6.9 (3.8-10.6) k/uL RBC 4.49 (3.80-5.40) m/uL Hgb 11.4 (11.4-16.0) gm/dL Hct 35.7 (34.0-46.0) % MCV 79.4 L (80.0-100.0) fL MCH 25.4 (25.0-35.0) pg MCHC 31.9 (31.0-37.0) g/dL RDW 15.3 (11.5-15.5) % Plt Count 248 (150-450) k/uL MPV 8.4 Neutrophils % 58 % Lymphocytes % 28 % Monocytes % 6 % Eosinophils % 5 % Basophils % 0 % Neutrophils # 4.0 (1.3-7.7) k/uL Lymphocytes # 1.9 (1.0-4.8) k/uL Monocytes # 0.4 (0-1.0) k/uL Eosinophils # 0.3 (0-0.7) k/uL Basophils # 0.0 (0-0.2) k/uL Hypochromasia Slight Sodium 139 (137-145) mmol/L Potassium 4.2 (3.5-5.1) mmol/L Chloride 103 (98-107) mmol/L Carbon Dioxide 29 (22-30) mmol/L Anion Gap 7 mmol/L BUN 14 (7-17) mg/dL Creatinine 0.81 (0.52-1.04) mg/dL Est GFR (CKD-EPI)AfAm >90 (>60 ml/min/1.73 sqM) Est GFR (CKD-EPI)NonAf 85 (>60 ml/min/1.73 sqM) Glucose 105 H (74-99) mg/dL Calcium 9.3 (8.4-10.2) mg/dL Urine Color Urine Appearance (Clear) Urine pH (5.0-8.0) Ur Specific [place] (1.001-1.035) Urine Protein (Negative) Urine Glucose (UA) (Negative) Urine Ketones (Negative) Urine Blood (Negative) Urine Nitrite (Negative) Urine Bilirubin (Negative) Urine Urobilinogen (<2.0) mg/dL Ur Leukocyte Esterase (Negative) Urine RBC (0-5) /hpf Urine WBC (0-5) /hpf Ur Squamous Epith Cells (0-4) /hpf Urine Bacteria (None) /hpf Urine Mucus (None) /hpf Disposition Clinical Impression: UTI (urinary tract infection) Disposition: ADMITTED IP TO THIS [facility] Condition: Fair Referrals: Rosa Stewart MD [Primary Care Provider] - 1-2 days Decision Time: 15:05
[2024-07-31 14:08] LABS: Basophils % (A) 0 %; Eosinophils # (A) 0.3 k/uL (0-0.7); Eosinophils % (A) 5 %; HCT 35.7 % (34.0-46.0); HGB 11.4 gm/dL (11.4-16.0); Hypochromasia Slight; Lymphocytes # (A) 1.9 k/uL (1.0-4.8); Lymphocytes % (A) 28 %; MCH 25.4 pg (25.0-35.0); MCHC 31.9 g/dL (31.0-37.0); MCV 79.4 fL (80.0-100.0); Mean Platelet Volume 8.4; Monocytes # (A) 0.4 k/uL (0-1.0); Monocytes % (A) 6 %; Neutrophils % (A) 58 %; Platelet Count 248 k/uL (150-450); RBC 4.49 m/uL (3.80-5.40); RDW 15.3 % (11.5-15.5); WBC 6.9 k/uL (3.8-10.6)
[2024-07-31 14:19] LABS: African American GFR (CKD) >90 (>60 ml/min/1.73 sqM); Anion Gap 7 mmol/L; Blood Urea Nitrogen 14 mg/dL (7-17); Calcium 9.3 mg/dL (8.4-10.2); Carbon Dioxide 29 mmol/L (22-30); Chloride 103 mmol/L (98-107); Glucose 105 mg/dL (74-99); Non-African American GFR(CKD) 85 (>60 ml/min/1.73 sqM); Potassium 4.2 mmol/L (3.5-5.1); Sodium 139 mmol/L (137-145)
[2024-07-31] MEDS ORDERED: NALOXONE 0.4 MG/ML 1 ML VIAL IV PRN (14:52)
[2024-07-31] MEDS: KETOROLAC 15 MG/ML 1 ML VIAL IVP STA (15:03)
[2024-07-31] MEDS: SODIUM CHLORIDE 0.9% 1,000 ML IV SCH (15:03)
[2024-07-31] MEDS: ERTAPENEM 1 GM in SODIUM CHLORIDE 0.9% 50 ML IVPB STA (15:21)
[2024-07-31] MEDS ORDERED: ALBUTEROL HFA INHALER INHALATION PRN (15:31)
[2024-07-31] MEDS: PREGABALIN 75 MG CAP PO SCH (15:51)
--- NOTE | 2024-07-31 16:19 | P.HPIM ---
History of Present Illness H&P Date: 07/31/24 Patient is a 49-year-old female with history of recurrent ESBL UTI, renal stones and hypertension presents to the ER with concerns for new onset urinary tract infection. Patient states that she has been endorsing left flank pain associated with burning pain upon urination and hematuria since Monday. Patient stated her symptoms have been progressively worsening. She has also been endorsing intermittent fever and chills associate with mild nausea. Denies any vomiting, abdominal pain, passage of renal stones. At the time of interview, patient said her pain has started to improve after she received Toradol. Her initial lab work in the ER shows WBC 8.1, hemoglobin 11.9, platelet count 251, sodium 139, potassium 4.2, chloride 107, bicarb 28, BUN 40, creatinine 0.83, glucose 108, calcium 9.3. Urinalysis show cloudy appearing urine positive for leukocyte esterase and negative nitrite. Vital signs: Tmax 98.5 F, pulse rate 76, respirate 22, blood pressure 141/86, oxygen saturation 97% on room air. Review of systems: Pertinent positives and negatives as discussed in HPI, a complete review of systems was performed and all other systems are negative. Physical examination: Vital signs reviewed General: non toxic, no distress, appears at stated age, normal weight HEENT: NC/AT, intact EOMI, PERRLA, Neck: No cervical lymphadenopathy, trachea midline, supple Mouth: no lip lesion, mucus membranes moist Cardiovascular: S1S2 reg, no murmur, positive dorsalis pedis pulse bilateral, no edema Lungs: CTA bilateral, no rhonchi, no rales, no accessory muscle use Abdominal: soft, nontender to palpation, no guarding, left flank tenderness upon palpation Ext: muscle strength 5 out of 5 in all 4 extremities grossly, no gross muscle atrophy, no contractures, Neuro: CN II-XI grossly intact, no gross focal neuro deficits Psych: Alert, oriented, appropriate affect Assessment/Plan: Patient is a 49-year-old female with history of recurrent ESBL UTI, renal stones and hypertension presents to the ER with concerns for new onset urinary tract infection. ED documentation reviewed and case discussed with ED provider. Patient was admitted to internal medicine service for suspected pyelonephritis. #Acute complicated UTI #History of ESBL UTI #History of renal stones Patient has left flank pain and dysuria since 6 days UA positive for leukocyte esterase Based on culture and sensitivity report from 02/06/2024 patient is sensitive to carbapenems Order ertapenem 1 g IVP daily No SIRS Consult infectious disease Order urine culture Order CT abdomen/pelvis with IV contrast IV normal saline at KVO #Hyperglycemia Glucose 108 Continue monitor glucose level #Chronic conditions: Hypertension: Resume amlodipine 5 mg p.o. at bedtime, metoprolol 50 mg p.o. twice daily, hydrochlorothiazide 25 mg p.o. at bedtime Depression/anxiety: Resume Abilify 2 mg p.o. at bedtime, Lyrica 150 mg p.o. 3 times daily, Cymbalta 60 mg p.o. at bedtime Insomnia: Resume zolpidem 10 mg p.o. at bedtime Asthma: Resume albuterol inhaler DVT prophylaxis: Not indicated, low risk for DVT F: IV NS at KVO E: Replete as needed N: Heart healthy diet A: Ambulatory without assist The patient is admitted with an anticipated less than 2 midnight stay for evaluation of acute pyelonephritis/UTI CODE STATUS: Full code Discussed with: Patient Anticipated discharge place: Home Anticipated discharge time: Pending clinical course I have seen and evaluated the patient today. Discussed with the resident and agree with the residents finding and plan as documented in the resident's note. Changes highlighted in blue font. Past Medical History Past Medical History: GERD/Reflux, Hypertension, Osteoarthritis (OA), Pneumonia, Renal Disease Additional Past Medical History / Comment(s): kidney stones/septic stone, environmental allergies, pneumonia aug 2021 post-op, herniated discs, occasional tachycardia, ileus History of Any Multi-Drug Resistant Organisms: ESBL Date of last positivie culture/infection: 01/17/24 MDRO Source:: urine Past Surgical History: Adenoidectomy, Bariatric Surgery, Section, Cholecystectomy, Hysterectomy, Joint Replacement, Orthopedic Surgery, Tonsillectomy Additional Past Surgical History / Comment(s): 08/09/23 cystoscopy with L lithotripsy/L stent removed, left knee replacement, arthroscopy right knee, lap band 16 yrs ago- no fluid in band per pt. surgery at [facility]), 03/23/22 trigger finger, KIDNEY STONE SX, gastric sleeve 10/11, ankle cyst removed as child, samaria ureter stents Past Anesthesia/Blood Transfusion Reactions: Postoperative Nausea & Vomiting (PONV) Additional Past Anesthesia/Blood Transfusion Reaction / Comment(s): grandmother- difficulty waking up, slight fever one time but not ever told it was malignant hyperthermia Past Psychological History: Depression Smoking Status: Never smoker Past Alcohol Use History: None Reported Past Drug Use History: None Reported - Past Family History Mother Family Medical History: Cancer, Hypertension Medications and Allergies Home Medications Medication Instructions Recorded Confirmed Type Metoprolol Succinate (ER) [Toprol 150 mg PO BID 05/07/18 07/31/24 History XL] Pregabalin [Lyrica] 150 mg PO TID 04/21/20 07/31/24 History Vortioxetine Hydrobromide 20 mg PO HS 04/21/20 07/31/24 History [Trintellix] Zolpidem [Ambien] 10 mg PO HS 04/21/20 07/31/24 History ARIPiprazole [Abilify] 2 mg PO HS 03/10/21 07/31/24 History amLODIPine [Norvasc] 5 mg PO HS 03/10/21 07/31/24 History Cyclobenzaprine [Flexeril] 10 mg PO BID PRN 07/09/23 07/31/24 History DULoxetine HCL [Cymbalta] 60 mg PO HS 07/09/23 07/31/24 History cloNIDine HCL [Catapres] 0.1 mg PO HS 07/09/23 07/31/24 History Albuterol Inhaler [Ventolin Hfa 1 - 2 puff INHALATION RT-Q6H PRN 02/11/24 1 09/30/23 History Inhaler] Butalb/APAP/Caff 50-325-40Mg 1 tab PO Q6H PRN 06/07/24 07/31/24 History [Fioricet 50-325-40] Metoclopramide [Reglan] 10 mg PO Q6H PRN #30 tab 06/07/24 07/31/24 Rx Ondansetron Odt [Zofran Odt] 4 mg PO Q8HR PRN #30 tab 06/07/24 07/31/24 Rx Rizatriptan Benzoate [Rizatriptan] 10 mg PO BID PRN MDD 20 mg 06/07/24 07/31/24 History hydroCHLOROthiazide [Hydrodiuril] 25 mg PO HS 06/07/24 07/31/24 History Azelastine HCl [Astelin Nasal 2 spr EA NOSTRIL BID 07/31/24 07/31/24 History [place]] Ketorolac [Toradol] 10 mg PO Q8H PRN 07/31/24 07/31/24 History Allergies Allergy/AdvReac Type Severity Reaction Status Date / Time ofloxacin [From Floxin] AdvReac Unknown Hallucinati Verified 07/31/24 15:23 ons SAI Inhibitors AdvReac ANGIOEDEMA Verified 07/31/24 15:23 bupropion [From Wellbutrin] AdvReac seizure Verified 07/31/24 15:23 venlafaxine [From Effexor] AdvReac seizure Verified 07/31/24 15:23 Physical Exam Vitals: Vital Signs Temp Pulse Resp BP Pulse Ox 07/31/24 12:37 98.5 F 76 22 141/86 97 Intake and Output 07/31/24 07/31/24 07/31/24 06:59 14:59 22:59 Other: Weight 109.769 kg Results CBC & Chem 7: 07/31/24 13:59 07/31/24 13:59 Labs: Abnormal Lab Results - Last 24 Hours (Table) 07/31/24 07/31/24 07/31/24 Range/Units 12:49 12:49 12:49 MCV 79.0 L (80.0-100.0) fL Glucose 108 H (74-99) mg/dL Urine Appearance Cloudy H (Clear) Urine Protein 1+ H (Negative) Urine Blood Large H (Negative) Ur Leukocyte Esterase Moderate H (Negative) Urine RBC >182 H (0-5) /hpf Urine WBC 11 H (0-5) /hpf Ur Squamous Epith Cells 7 H (0-4) /hpf Urine Bacteria Rare H (None) /hpf Urine Mucus Many H (None) /hpf 07/31/24 07/31/24 Range/Units 13:59 13:59 MCV 79.4 L (80.0-100.0) fL Glucose 105 H (74-99) mg/dL Urine Appearance (Clear) Urine Protein (Negative) Urine Blood (Negative) Ur Leukocyte Esterase (Negative) Urine RBC (0-5) /hpf Urine WBC (0-5) /hpf Ur Squamous Epith Cells (0-4) /hpf Urine Bacteria (None) /hpf Urine Mucus (None) /hpf
--- NOTE | 2024-07-31 16:41 | CT ---
EXAMINATION TYPE: CT abdomen pelvis w con DATE OF EXAM: 07/31/2024 4:28 PM COMPARISON: CT abdomen/pelvis 06/07/2024. CLINICAL INDICATION: Female, 49 years old with history of acute pyelonephritis; acute pyelonephritis TECHNIQUE: Axial CT abdomen pelvis w con;Sagittal and coronal reformats were created on a separate w orkstation. Contrast used:100ml mL of Isovue 300 with IV Contrast, (none if empty) Oral contrast used: without Oral Contrast (none if empty) CT DLP: 2062 mGycm, Automated exposure control for dose reduction was used. FINDINGS: LOWER CHEST: Unremarkable ABDOMEN Liver parenchyma indicates decreased attenuation suggesting steatosis. Portal veins appear patent. Ga llbladder surgically absent. Spleen normal size mammography. No suspicious adrenal gland nodule. Panc reas unremarkable. No abnormal biliary ductal dilatation. Bilateral kidneys demonstrate symmetric enh ancement. No CT evidence of acute pyelonephritis. No obstructing renal or ureteral calculus. Nonobstr ucting punctate calculi in the inferior left kidney. Imaging through the gastrointestinal tract demonstrates no evidence of bowel structure in. Postsurgic al changes in previously gastrectomy and small hilar hernia. Appendix unremarkable. Calcified atherosclerotic disease of the abdominal aorta without aneurysmal dilatation. Celiac artery and SMA appear patent. No acute fracture or aggressive osseous lesion. IMPRESSION: No acute abnormality in the abdomen/pelvis. Specifically, no evidence of acute pyelonephritis. [facility], , 07/31/2024 4:39 PM
[2024-07-31] MEDS: DULoxetine HCL 60 MG CAPSULE.DR PO SCH (20:32)
[2024-07-31] MEDS: amLODIPine 5 MG TAB PO SCH (20:32)
[2024-07-31] MEDS: cloNIDine HCL 0.1 MG TAB PO SCH (20:32)
[2024-07-31] MEDS: ARIPiprazole 2 MG TAB PO SCH (21:01)
[2024-07-31] MEDS: VORTIOXETINE HYDROBROMIDE 20 MG TABLET PO SCH (21:01)
[2024-07-31] MEDS: METOPROLOL SUCCINATE (ER) 100 MG TAB.ER.24H PO SCH (21:01)
[2024-07-31] MEDS: hydroCHLOROthiazide 25 MG TAB PO SCH (21:01)
[2024-07-31] MEDS: AZELASTINE 137MCG/SPRAY EA NOSTRIL SCH (21:04)
[2024-07-31] MEDS: ZOLPIDEM 5 MG TAB PO SCH (22:02)
[2024-07-31] MEDS: ONDANSETRON ODT 4 MG TAB PO PRN (22:02)
[2024-08-01] MEDS: KETOROLAC 15 MG/ML 1 ML VIAL IVP PRN (04:56)
--- NOTE | 2024-08-01 08:32 | P.CONS ---
History of Present Illness - Reason for Consult Consult date: 07/31/24 ESBL Requesting physician: Rene Richards - Chief Complaint Left flank pain burning of urine hematuria x few days - History of Present Illness Patient is a 49-year-old female with a past medical history significant for hypertension reflux osteoarthritis pneumonia did have a history of kidney stones and recurrent urinary tract infection secondary to ESBL E. coli patient was advised suppressive oral Macrobid with the patient was taking and has felt better however the patient stopped taking her Macrobid about 4 weeks ago and subsequently started having pain to the left flank area along with burning of urine and hematuria concerning for UTI for the patient presented to hospital patient symptom has been going on for the last few days pain to the left leg area is mostly dull aching to sharp mild to moderate intense without any radiation did have burning of urine as well as some hematuria patient did have some nausea but no vomiting denies high-grade fever or chills no nausea vomiting no diarrhea no chest pain shortness of breath or cough patient prese nted to the hospital was afebrile patient was not tachycardic hypotensive or hypoxic she did have white count of 8.1 creatinine is 0.83 electrolytes are normal urine was positive with moderate leukocyte esterase 11 WBC patient did have abdominal pelvis CT no acute abnormality in the abdominal pelvis no evidence for acute pyelonephritis patient was started on Invanz infectious disease was consulted for further management of antibiotic therapy Review of Systems Positive point and negatives has been mentioned in the HPI, complete review of systems was performed and all other systems are negative Past Medical History Past Medical History: GERD/Reflux, Hypertension, Osteoarthritis (OA), Pneumonia, Renal Disease Additional Past Medical History / Comment(s): kidney stones/septic stone, environmental allergies, pneumonia aug 2021 post-op, herniated discs, occasional tachycardia, ileus History of Any Multi-Drug Resistant Organisms: ESBL Year Discovered:: 01/17/24 MDRO Source:: urine Past Surgical History: Adenoidectomy, Bariatric Surgery, Section, Cholecystectomy, Hysterectomy, Joint Replacement, Orthopedic Surgery, Tonsillectomy Additional Past Surgical History / Comment(s): 08/09/23 cystoscopy with L lithotripsy/L stent removed, left knee replacement, arthroscopy right knee, lap band 16 yrs ago- no fluid in band per pt. surgery at [facility]), 03/23/22 trigger finger, KIDNEY STONE SX, gastric sleeve 10/11, ankle cyst removed as child, samaria ureter stents Past Anesthesia/Blood Transfusion Reactions: Postoperative Nausea & Vomiting (PONV) Additional Past Anesthesia/Blood Transfusion Reaction / Comm: grandmother- difficulty waking up, slight fever one time but not ever told it was malignant hyperthermia Past Psychological History: Depression Smoking Status: Never smoker Past Alcohol Use History: None Reported Past Drug Use History: None Reported - Past Family History Mother Family Medical History: Cancer, Hypertension Medications and Allergies Home Medications Medication Instructions Recorded Confirmed Type Metoprolol Succinate (ER) [Toprol 150 mg PO BID 05/07/18 07/31/24 History XL] Pregabalin [Lyrica] 150 mg PO TID 04/21/20 07/31/24 History Vortioxetine Hydrobromide 20 mg PO HS 04/21/20 07/31/24 History [Trintellix] Zolpidem [Ambien] 10 mg PO HS 04/21/20 07/31/24 History ARIPiprazole [Abilify] 2 mg PO HS 03/10/21 07/31/24 History amLODIPine [Norvasc] 5 mg PO HS 03/10/21 07/31/24 History Cyclobenzaprine [Flexeril] 10 mg PO BID PRN 07/09/23 07/31/24 History DULoxetine HCL [Cymbalta] 60 mg PO HS 07/09/23 07/31/24 History cloNIDine HCL [Catapres] 0.1 mg PO HS 07/09/23 07/31/24 History Albuterol Inhaler [Ventolin Hfa 1 - 2 puff INHALATION RT-Q6H PRN 02/11/24 History Inhaler] Butalb/APAP/Caff 50-325-40Mg 1 tab PO Q6H PRN 06/07/24 07/31/24 History [Fioricet 50-325-40] Metoclopramide [Reglan] 10 mg PO Q6H PRN #30 tab 06/07/24 07/31/24 Rx Ondansetron Odt [Zofran Odt] 4 mg PO Q8HR PRN #30 tab 06/07/24 07/31/24 Rx Rizatriptan Benzoate [Rizatriptan] 10 mg PO BID PRN MDD 20 mg 06/07/24 07/31/24 History hydroCHLOROthiazide [Hydrodiuril] 25 mg PO HS 06/07/24 07/31/24 History Azelastine HCl [Astelin Nasal 2 spr EA NOSTRIL BID 07/31/24 07/31/24 History [place]] Ketorolac [Toradol] 10 mg PO Q8H PRN 07/31/24 07/31/24 History Allergies Allergy/AdvReac Type Severity Reaction Status Date / Time ofloxacin [From Floxin] AdvReac Unknown Hallucinati Verified 07/31/24 15:23 ons SAI Inhibitors AdvReac ANGIOEDEMA Verified 07/31/24 15:23 bupropion [From Wellbutrin] AdvReac seizure Verified 07/31/24 15:23 venlafaxine [From Effexor] AdvReac seizure Verified 07/31/24 15:23 Physical Exam Vitals: Vital Signs Temp Pulse Pulse Resp BP BP Pulse Ox 07/31/24 19:39 98.7 F 69 17 149/90 98 07/31/24 17:36 67 18 125/84 98 07/31/24 16:37 62 18 132/81 100 07/31/24 12:37 98.5 F 76 22 141/86 97 Intake and Output 07/31/24 07/31/24 07/31/24 06:59 14:59 22:59 Other: Weight 109.769 kg 109.769 kg GENERAL DESCRIPTION: Middle-aged female lying in bed, no distress. No tachypnea or accessory muscle of respiration use. HEENT: Shows Pallor , no scleral icterus. Oral mucous membrane is dry. NECK: Trachea central, no thyromegaly. LUNGS: Unlabored breathing. Clear to auscultation anteriorly. No wheeze or crackle. HEART: S1, S2, regular rate and rhythm. No loud murmur ABDOMEN: Soft, no tenderness , guarding or rigidity, EXTREMITIES: No edema of feet. SKIN: No rash, no masses palpable. NEUROLOGICAL: The patient is awake, alert, oriented x3, mood and affect normal. Results CBC & Chem 7: 07/31/24 13:59 07/31/24 13:59 Labs: Abnormal Lab Results - Last 24 Hours (Table) 07/31/24 07/31/24 07/31/24 Range/Units 12:49 12:49 12:49 MCV 79.0 L (80.0-100.0) fL Glucose 108 H (74-99) mg/dL Urine Appearance Cloudy H (Clear) Urine Protein 1+ H (Negative) Urine Blood Large H (Negative) Ur Leukocyte Esterase Moderate H (Negative) Urine RBC >182 H (0-5) /hpf Urine WBC 11 H (0-5) /hpf Ur Squamous Epith Cells 7 H (0-4) /hpf Urine Bacteria Rare H (None) /hpf Urine Mucus Many H (None) /hpf 07/31/24 07/31/24 Range/Units 13:59 13:59 MCV 79.4 L (80.0-100.0) fL Glucose 105 H (74-99) mg/dL Urine Appearance (Clear) Urine Protein (Negative) Urine Blood (Negative) Ur Leukocyte Esterase (Negative) Urine RBC (0-5) /hpf Urine WBC (0-5) /hpf Ur Squamous Epith Cells (0-4) /hpf Urine Bacteria (None) /hpf Urine Mucus (None) /hpf Assessment and Plan (1) UTI (urinary tract infection) Current Visit: Yes Status: Acute Code(s): N39.0 - URINARY TRACT INFECTION, SITE NOT SPECIFIED SNOMED Code(s): 14496699 (2) History of ESBL E. coli infection Current Visit: No Status: Acute Code(s): Z86.19 - PERSONAL HISTORY OF OTHER INFECTIOUS AND PARASITIC DISEASES SNOMED Code(s): 265464699 Plan: 1patient presented to hospital with left flank pain also complaining of burning of urine and did have some hematuria concerning for symptomatic urinary tract infection patient did not have any fever or elevated white count clinic suspicious low for pyelonephritis and there was no evidence of any stones or hydronephrosis on the CT 2-patient did have history of ESBL infection and worthwhile coverage while waiting for the culture to finalize 3-Invanz 1 g daily while waiting for the culture to finalize determine discharge antibiotics We will follow on clinical condition and cultures to further adjust medication if needed Thank you for this consultation we will follow the patient along with you Dictation was produced using [employer] dictation software. please excuse any grammatical, word or spelling errors. Time with Patient: Greater than 30
[2024-08-01 08:51] LABS: BUN/Creat Ratio 23.57 Ratio (12.00-20.00); Blood Urea Nitrogen 16.5 mg/dL (9.0-27.0); Calcium 8.8 mg/dL (8.7-10.3); Carbon Dioxide 25.5 mmol/L (21.6-31.8); Chloride 102 mmol/L (96-109); Glucose 97 mg/dL (70-110); Sodium 141 mmol/L (135-145)
[2024-08-01] MEDS: ERTAPENEM 1 GM in SODIUM CHLORIDE 0.9% 50 ML IVPB SCH (10:37)
[2024-08-01] MEDS: BUTALB/APAP/CAFF 50-325-40MG TAB PO PRN (11:25)
--- NOTE | 2024-08-01 14:57 | P.PN ---
Subjective Progress Note Date: 08/01/24 Hospital course: This is a 49-year-old female with history of recurrent ESBL UTI, renal stones and hypertension came to the ER with concerns for new onset urinary tract infection. Her initial lab work in the ER shows WBC 8.1, hemoglobin 11.9, platelet count 251, sodium 139, potassium 4.2, chloride 107, bicarb 28, BUN 40, creatinine 0.83, glucose 108, calcium 9.3. Urinalysis show cloudy appearing urine positive for leukocyte esterase and negative nitrite. Vital signs: Tmax 98.5 F, pulse rate 76, respirate 22, blood pressure 141/86, oxygen saturation 97% on room air. Patient admitted to internal medicine service for suspected pyelonephritis. Patient is started on IV ertapenem. Infectious diseases consulted. CT abdomen/pelvis shows no evidence of acute pyelonephritis and no obstructing renal or ureteral calculus. Subjective: Patient seen and examined at the bedside. No acute events overnight. All Systems reviewed and pertinent positives and negatives noted in HPI, all other symptoms are negative Objective: Vital signs reviewed. General: non toxic, no distress, appears at stated age, normal weight HEENT: NC/AT, intact EOMI, PERRLA, Neck: No cervical lymphadenopathy, trachea midline, supple Mouth: no lip lesion, mucus membranes moist Cardiovascular: S1S2 reg, no murmur, positive dorsalis pedis pulse bilateral, no edema Lungs: CTA bilateral, no rhonchi, no rales, no accessory muscle use Abdominal: soft, nontender to palpation, no guarding, left flank tenderness upon palpation Ext: muscle strength 5 out of 5 in all 4 extremities grossly, no gross muscle atrophy, no contractures, Neuro: CN II-XI grossly intact, no gross focal neuro deficits Psych: Alert, oriented, appropriate affect Data reviewed today: Labs: Sodium 141, potassium 4.2, chloride 102, bicarbonate 25.5, BUN 16.5, creatinine 0.7 Images: No new imaging Assessment and Plan: Patient is a 49-year-old female with history of recurrent ESBL UTI, renal stones and hypertension presents to the ER with concerns for new onset urinary tract infection. ED documentation reviewed and case discussed with ED provider. Patient was admitted to internal medicine service for suspected pyelonephritis. #Acute complicated UTI #History of ESBL UTI #History of renal stones UA positive for leukocyte esterase Based on culture and sensitivity report from 02/06/2024 patient is sensitive to carbapenems Continue with ertapenem 1 g IVP daily No SIRS History disease consulted, recs appreciated Follow-up on urine culture; results pending CT abdomen pelvis is unremarkable IV normal saline at KVO #Hyperglycemia Glucose 108 Continue monitor glucose level #Chronic conditions: Hypertension: Resume amlodipine 5 mg p.o. at bedtime, metoprolol 50 mg p.o. twice daily, hydrochlorothiazide 25 mg p.o. at bedtime Depression/anxiety: Resume Abilify 2 mg p.o. at bedtime, Lyrica 150 mg p.o. 3 times daily, Cymbalta 60 mg p.o. at bedtime Insomnia: Resume zolpidem 10 mg p.o. at bedtime Asthma: Resume albuterol inhaler DVT prophylaxis: Not indicated, low risk for DVT F: IV NS at KVO E: Replete as needed N: Heart healthy diet A: Ambulatory without assist CODE STATUS: Full code Discussed with: Patient Anticipated discharge place: Home Anticipated discharge time: Pending clinical course I have seen and evaluated the patient today. Discussed with the resident and agree with the residents finding and plan as documented in the resident's note. Changes highlighted in blue font. Objective - Vital Signs Vital signs: Vital Signs Temp 98.2 F 08/01/24 14:07 Pulse 75 08/01/24 14:07 Resp 20 08/01/24 14:07 BP 132/81 08/01/24 14:07 Pulse Ox 95 08/01/24 14:07 FiO2 Intake & Output 07/31/24 08/01/24 08/01/24 18:59 06:59 18:59 Intake Total 122 Balance 122 Weight 109.769 kg Intake: Oral 122 Other: Voiding Method Toilet # Voids 2 2 - Labs CBC & Chem 7: 07/31/24 13:59 08/01/24 04:34 Labs: Abnormal Lab Results - Last 24 Hours (Table) 08/01/24 Range/Units 04:34 Anion Gap 13.50 H (4.00-12.00) mmol/L BUN/Creatinine Ratio 23.57 H (12.00-20.00) Ratio
--- NOTE | 2024-08-01 23:22 | P.PN ---
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 On today's evaluation that is 08/01/2024, Patient is afebrile patient is currently on room air and denies having any shortness of breath, the patient denies any chest pain or cough, the patient denies any nausea vomiting still complaining of some pain to the flank area but no further hematuria. The patient did have a creatinine 0.7 urine cultures currently pending Objective - Vital Signs Vital signs: Vital Signs Temp 97.7 F 08/01/24 07:00 Pulse 60 08/01/24 07:00 Resp 20 08/01/24 07:00 BP 114/70 08/01/24 07:00 Pulse Ox 97 08/01/24 07:00 FiO2 Intake & Output 07/31/24 08/01/24 08/01/24 18:59 06:59 18:59 Weight 109.769 kg Other: Voiding Method Toilet # Voids 2 - Exam GENERAL DESCRIPTION: Middle-age female lying in bed in no distress RESPIRATORY SYSTEM: Unlabored breathing , decreased breath sounds at bases HEART: S1 S2 regular rate and rhythm , ABDOMEN: Soft , no tenderness EXTREMITIES: No edema feet - Labs CBC & Chem 7: 07/31/24 13:59 08/01/24 04:34 Labs: Abnormal Lab Results - Last 24 Hours (Table) 07/31/24 07/31/24 07/31/24 Range/Units 12:49 12:49 13:59 MCV 79.4 L (80.0-100.0) fL Anion Gap (4.00-12.00) mmol/L BUN/Creatinine Ratio (12.00-20.00) Ratio Glucose 108 H (74-99) mg/dL Urine Appearance Cloudy H (Clear) Urine Protein 1+ H (Negative) Urine Blood Large H (Negative) Ur Leukocyte Esterase Moderate H (Negative) Urine RBC >182 H (0-5) /hpf Urine WBC 11 H (0-5) /hpf Ur Squamous Epith Cells 7 H (0-4) /hpf Urine Bacteria Rare H (None) /hpf Urine Mucus Many H (None) /hpf 07/31/24 08/01/24 Range/Units 13:59 04:34 MCV (80.0-100.0) fL Anion Gap 13.50 H (4.00-12.00) mmol/L BUN/Creatinine Ratio 23.57 H (12.00-20.00) Ratio Glucose 105 H (74-99) mg/dL Urine Appearance (Clear) Urine Protein (Negative) Urine Blood (Negative) Ur Leukocyte Esterase (Negative) Urine RBC (0-5) /hpf Urine WBC (0-5) /hpf Ur Squamous Epith Cells (0-4) /hpf Urine Bacteria (None) /hpf Urine Mucus (None) /hpf Assessment and Plan (1) UTI (urinary tract infection) Current Visit: Yes Status: Acute Code(s): N39.0 - URINARY TRACT INFECTION, SITE NOT SPECIFIED SNOMED Code(s): 90505879 (2) History of ESBL E. coli infection Current Visit: No Status: Acute Code(s): Z86.19 - PERSONAL HISTORY OF OTHER INFECTIOUS AND PARASITIC DISEASES SNOMED Code(s): 784705303 Plan: 1patient presented to hospital with left flank pain also complaining of burning of urine and did have some hematuria concerning for symptomatic urinary tract infection patient did not have any fever or elevated white count clinic s uspicious low for pyelonephritis and there was no evidence of any stones or hydronephrosis on the CT 2-patient did have history of ESBL infection and worthwhile coverage while waiting for the culture to finalize 3-patient mentions some improvement symptoms we will continue Invanz 1 g daily while waiting for the culture to finalize determine discharge antibiotics Question concern answered Dictation was produced using [employer] dictation software. please excuse any grammatical, word or spelling errors. Time with Patient: Less than 30
[2024-08-02 07:44] VITALS: RESP 20; TEMP 98
[2024-08-02] MEDS: PHENAZOPYRIDINE 200 MG TAB PO SCH (10:06)
--- NOTE | 2024-08-02 12:38 | P.PN ---
Subjective Progress Note Date: 08/02/24 Principal diagnosis: Reason for follow-up is a UTI Patient is a 49-year-old female with a past medical history significant for hypertension reflux osteoarthritis pneumonia did have a history of kidney stones and recurrent urinary tract infection secondary to ESBL E. coli presenting to the hospital for left flank pain urinary burning and hematuria concerning for symptomatic UTI CT abdominal pelvis did not show any stone hydronephrosis or pyelonephritis. On today's evaluation that is 08/02/2024, patient has been afebrile, patient is breathing comfortably and is currently on room air, patient denies having any significant cough no chest pain, patient denies nausea vomiting or diarrhea still complaining of some burning of urine but no further hematuria. Patient did not have any lab draw today urine cultures came back negative Objective - Vital Signs Vital signs: Vital Signs Temp 98.0 F 08/02/24 07:00 Pulse 63 08/02/24 09:04 Resp 20 08/02/24 07:00 BP 114/59 08/02/24 07:00 Pulse Ox 94 L 08/02/24 07:00 FiO2 Intake & Output 08/01/24 08/02/24 08/02/24 18:59 06:59 18:59 Intake Total 122 488 Balance 122 488 Intake: Oral 122 488 Other: Voiding Method Toilet # Voids 2 3 - Exam GENERAL DESCRIPTION: Middle-age female lying in bed in no distress RESPIRATORY SYSTEM: Unlabored breathing , decreased breath sounds at bases HEART: S1 S2 regular rate and rhythm , ABDOMEN: Soft , no tenderness EXTREMITIES: No edema feet - Labs CBC & Chem 7: 07/31/24 13:59 08/01/24 04:34 Labs: Microbiology - Last 24 Hours (Table) 07/31/24 12:49 Urine Culture - Final Urine,Voided Assessment and Plan (1) UTI (urinary tract infection) Current Visit: Yes Status: Acute Code(s): N39.0 - URINARY TRACT INFECTION, SITE NOT SPECIFIED SNOMED Code(s): 57908497 (2) History of ESBL E. coli infection Current Visit: No Status: Acute Code(s): Z86.19 - PERSONAL HISTORY OF OTHER INFECTIOUS AND PARASITIC DISEASES SNOMED Code(s): 430876260 Plan: 1patient presented to hospital with left flank pain also complaining of burning of urine and did have some hematuria concerning for symptomatic urinary tract infection patient did not have any fever or elevated white count clinic suspicious low for pyelonephritis and there was no evidence of any stones or hydronephrosis on the CT 2-patient did have history of ESBL infection and worthwhile coverage while waiting for the culture to finalize 3-patient patient did have resolution of her hematuria still some burning of urine culture have been negative repeat UA has been requested if it shows overall improvement may consider Macrobid 100 twice daily for 7 days on discharge Dictation was produced using [employer] dictation software. please excuse any grammatical, word or spelling errors. Time with Patient: Less than 30
--- NOTE | 2024-08-02 13:36 | P.PN ---
Subjective Progress Note Date: 08/02/24 Hospital course: This is a 49-year-old female with history of recurrent ESBL UTI, renal stones and hypertension came to the ER with concerns for new onset urinary tract infection. Her initial lab work in the ER shows WBC 8.1, hemoglobin 11.9, platelet count 251, sodium 139, potassium 4.2, chloride 107, bicarb 28, BUN 40, creatinine 0.83, glucose 108, calcium 9.3. Urinalysis show cloudy appearing urine positive for leukocyte esterase and negative nitrite. Vital signs: Tmax 98.5 F, pulse rate 76, respirate 22, blood pressure 141/86, oxygen saturation 97% on room air. Patient admitted to internal medicine service for suspected pyelonephritis. Patient is started on IV ertapenem. Infectious diseases consulted. CT abdomen/pelvis shows no evidence of acute pyelonephritis and no obstructing renal or ureteral calculus. Subjective: Patient seen and examined at the bedside. No acute events overnight. Patient still complaining of mild burning pain upon urination but denies any hematuria. Denies any abdominal pain and CVA tenderness. All Systems reviewed and pertinent positives and negatives noted in HPI, all other symptoms are negative Objective: Vital signs reviewed. General: non toxic, no distress, appears at stated age, normal weight HEENT: NC/AT, intact EOMI, PERRLA, Neck: No cervical lymphadenopathy, trachea midline, supple Mouth: no lip lesion, mucus membranes moist Cardiovascular: S1S2 reg, no murmur, positive dorsalis pedis pulse bilateral, no edema Lungs: CTA bilateral, no rhonchi, no rales, no accessory muscle use Abdominal: soft, nontender to palpation, no guarding, no CVA tenderness Ext: muscle strength 5 out of 5 in all 4 extremities grossly, no gross muscle atrophy, no contractures, Neuro: CN II-XI grossly intact, no gross focal neuro deficits Psych: Alert, oriented, appropriate affect Data reviewed today: Labs: No labs Images: No new imaging Assessment and Plan: Patient is a 49-year-old female with history of recurrent ESBL UTI, renal stones and hypertension presents to the ER with concerns for new onset urinary tract infection. ED documentation reviewed and case discussed with ED provider. Patient was admitted to internal medicine service for suspected pyelonephritis. #Acute complicated UTI #History of ESBL UTI #History of renal stones UA positive for leukocyte esterase Based on culture and sensitivity report from 02/06/2024 patient is sensitive to carbapenems No SIRS Urine culture is negative Infectious diseases consulted, case discussed with ID, repeat UA, if overall improvement then patient can be discharged on Macrobid 200 mg p.o. daily Order Pyridium 200 mg p.o. twice daily Continue with ertapenem 1 g IVP daily, awaiting repeat UA results CT abdomen pelvis is unremarkable IV normal saline at KVO #Hyperglycemia Glucose 108 Continue monitor glucose level #Chronic conditions: Hypertension: Resume amlodipine 5 mg p.o. at bedtime, metoprolol 50 mg p.o. twice daily, hydrochlorothiazide 25 mg p.o. at bedtime Depression/anxiety: Resume Abilify 2 mg p.o. at bedtime, Lyrica 150 mg p.o. 3 times daily, Cymbalta 60 mg p.o. at bedtime Insomnia: Resume zolpidem 10 mg p.o. at bedtime Asthma: Resume albuterol inhaler DVT prophylaxis: Not indicated, low risk for DVT F: IV NS at KVO E: Replete as needed N: Heart healthy diet A: Ambulatory without assist CODE STATUS: Full code Discussed with: Patient Anticipated discharge place: Home Anticipated discharge time: Pending clinical course I saw and evaluated the patient during the prieto and critical portions of this encounter, and discussed the case in detail with the resident author of this note, I agree with the Assessment and Plan, and my changes, if any, are highlighted in blue. Objective - Vital Signs Vital signs: Vital Signs Temp 98.0 F 08/02/24 07:00 Pulse 63 08/02/24 11:57 Resp 20 08/02/24 11:57 BP 114/59 08/02/24 07:00 Pulse Ox 94 L 08/02/24 07:00 FiO2 Intake & Output 08/01/24 08/02/24 08/02/24 18:59 06:59 18:59 Intake Total 122 488 Balance 122 488 Intake: Oral 122 488 Other: Voiding Method Toilet Toilet # Voids 2 3 - Labs CBC & Chem 7: 07/31/24 13:59 08/01/24 04:34 Labs: Microbiology - Last 24 Hours (Table) 07/31/24 12:49 Urine Culture - Final Urine,Voided
[2024-08-02 14:01] LABS: Appearance,Urine Clear (Clear); Bilirubin,Urine Negative (Negative); Blood,Urine Negative (Negative); Color,Urine Yellow; Glucose,Urine (UA) Negative (Negative); Ketones,Urine Negative (Negative); Leukocyte Esterase,Urine Negative (Negative); Nitrite,Urine Negative (Negative); Protein,Urine Negative (Negative); Specific Gravity,Urine 1.017 (1.001-1.035); Urobilinogen,Urine <2.0 mg/dL (<2.0)
[2024-08-02 16:06] VITALS: BP 131/81; PULSE 66
--- NOTE | 2024-08-02 16:50 | P.DS ---
Providers Date of admission: 07/31/24 14:54 Attending physician: Som Coronel Consults: 07/31/24 14:52 Consult Physician Routine Consulting Provider: Taye Motley Consult Reason/Comments: esbl Do you want consulting provider notified?: Yes [facility] Course: Discharge Diagnosis: #Acute complicated UTI #History of ESBL UTI #History of renal stones #Hyperglycemia Hospital Course: This is a 49-year-old female with history of recurrent ESBL UTI, renal stones and hypertension came to the ER with concerns for new onset urinary tract infection. Her initial lab work in the ER shows WBC 8.1, hemoglobin 11.9, platelet count 251, sodium 139, potassium 4.2, chloride 107, bicarb 28, BUN 40, creatinine 0.83, glucose 108, calcium 9.3. Urinalysis show cloudy appearing urine positive for leukocyte esterase and negative nitrite. Vital signs: Tmax 98.5 F, pulse rate 76, respirate 22, blood pressure 141/86, oxygen saturation 97% on room air. Patient admitted to internal medicine service for suspected pyelonephritis. Patient is started on IV ertapenem. Infectious diseases consulted. CT abdomen/pelvis shows no evidence of acute pyelonephritis and no obstructing renal or ureteral calculus. Repeat UA negative. Urine blood culture is negative. Patient still complaining of mild burning pain upon urination. Patient is medically optimized and hemodynamically stable to be discharged. Patient to be discharged home on Macrobid 100 mg twice daily for 7 days. Discharge instructions: Patient is advised to follow-up with PCP Patient to take Macrobid 100 mg p.o. daily for 7 days Patient reported instructions on UTI. Vital signs reviewed. Gen: in no apparent distress, resting comfortably in bed Eyes: PERRL, no scleral injection or icterus HENT: normocephalic, atraumatic, good hearing acuity, moist mucous membranes Neck: full range of motion Resp: CTAB, no rales, rhonchi, or wheezes CVS: normal S1 and S2, no murmurs, rubs or gallops, no edema GI: soft, NTTP, ND, no hepatosplenomegaly : no suprapubic tenderness, no CVAT, bates catheter is not present MSK: no clubbing, no cyanosis, no noted contractures of extremities Skin: no noted rashes, petechiae; temperature of skin is appropriate Neuro: moving all extremities without signs of weakness, CN II-XII intact Psych: cooperative, euthymic mood, insight and judgment intact I saw and evaluated the patient during the prieto and critical portions of this encounter, and discussed the case in detail with the resident author of this note, I agree with the Assessment and Plan, and my changes, if any, are highlighted in blue. Patient Condition at Discharge: Fair Plan - Discharge Summary Discharge Rx Participant: No New Discharge Prescriptions: New Nitrofurantoin Monohyd/M-Cryst [Macrobid] 100 mg PO Q12HR #14 cap Continue Metoprolol Succinate (ER) [Toprol XL] 150 mg PO BID Zolpidem [Ambien] 10 mg PO HS Vortioxetine Hydrobromide [Trintellix] 20 mg PO HS Pregabalin [Lyrica] 150 mg PO TID ARIPiprazole [Abilify] 2 mg PO HS Rizatriptan Benzoate [Rizatriptan] 10 mg PO BID PRN MDD 20 mg PRN Reason: Migraine Headache Metoclopramide [Reglan] 10 mg PO Q6H PRN #30 tab PRN Reason: Nausea And Vomiting Ondansetron Odt [Zofran ODT] 4 mg PO Q8HR PRN #30 tab PRN Reason: Nausea And Vomiting Ketorolac [Toradol] 10 mg PO Q8H PRN PRN Reason: Pain Azelastine HCl [Astelin Nasal [place]] 2 spr EA NOSTRIL BID amLODIPine [Norvasc] 5 mg PO HS cloNIDine HCL [Catapres] 0.1 mg PO HS DULoxetine HCL [Cymbalta] 60 mg PO HS Cyclobenzaprine [Flexeril] 10 mg PO BID PRN PRN Reason: Muscle Spasm Albuterol Inhaler [Ventolin Hfa Inhaler] 1 - 2 puff INHALATION RT-Q6H PRN PRN Reason: Shortness Of Breath hydroCHLOROthiazide [Hydrodiuril] 25 mg PO HS Butalb/APAP/Caff 50-325-40Mg [Fioricet 50-325-40] 1 tab PO Q6H PRN PRN Reason: Migraine Headache Discharge Medication List Metoprolol Succinate (ER) [Toprol XL] 150 mg PO BID 05/07/18 [History] Pregabalin [Lyrica] 150 mg PO TID 04/21/20 [History] Vortioxetine Hydrobromide [Trintellix] 20 mg PO HS 04/21/20 [History] Zolpidem [Ambien] 10 mg PO HS 04/21/20 [History] ARIPiprazole [Abilify] 2 mg PO HS 03/10/21 [History] amLODIPine [Norvasc] 5 mg PO HS 03/10/21 [History] Cyclobenzaprine [Flexeril] 10 mg PO BID PRN 07/09/23 [History] DULoxetine HCL [Cymbalta] 60 mg PO HS 07/09/23 [History] cloNIDine HCL [Catapres] 0.1 mg PO HS 07/09/23 [History] Albuterol Inhaler [Ventolin Hfa Inhaler] 1 - 2 puff INHALATION RT-Q6H PRN 02/11/24 [History] Butalb/APAP/Caff 50-325-40Mg [Fioricet 50-325-40] 1 tab PO Q6H PRN 06/07/24 [History] Metoclopramide [Reglan] 10 mg PO Q6H PRN #30 tab 06/07/24 [Rx] Ondansetron Odt [Zofran ODT] 4 mg PO Q8HR PRN #30 tab 06/07/24 [Rx] Rizatriptan Benzoate [Rizatriptan] 10 mg PO BID PRN MDD 20 mg 06/07/24 [History] hydroCHLOROthiazide [Hydrodiuril] 25 mg PO HS 06/07/24 [History] Azelastine HCl [Astelin Nasal [place]] 2 spr EA NOSTRIL BID 07/31/24 [History] Ketorolac [Toradol] 10 mg PO Q8H PRN 07/31/24 [History] Nitrofurantoin Monohyd/M-Cryst [Macrobid] 100 mg PO Q12HR #14 cap 08/02/24 [Rx] Follow up Appointment(s)/Referral(s): Rosa Stewart MD [Primary Care Provider] - 1-2 days (please call and make appointment ) Patient Instructions/Handouts: Urinary Tract Infection in Women (DC) Activity/Diet/Wound Care/Special Instructions: Please follow up with your PCP. Continue with Macrobid 100mg 1 tablet two times a day for 7 days. Discharge Disposition: HOME SELF-CARE
== END 2024-08-02 17:24 | disposition home or self-care (01) ==
LOC: EC 12:29 → 6NMEDSUR 14:54
PROVIDERS: ADMIT Student in an Organized Health Care Education/Training Program; ATTEND Student in an Organized Health Care Education/Training Program
DX: N39.0 Urinary tract infection, site not specified (principal); R73.9 Hyperglycemia, unspecified; F32.A Depression, unspecified; F41.9 Anxiety disorder, unspecified; G47.00 Insomnia, unspecified; I10 Essential (primary) hypertension; K21.9 Gastro-esophageal reflux disease without esophagitis; J45.909 Unspecified asthma, uncomplicated; M19.90 Unspecified osteoarthritis, unspecified site; Z87.442 Personal history of urinary calculi; Z87.440 Personal history of urinary (tract) infections; Z79.899 Other long term (current) drug therapy; Z86.19 Personal history of other infectious and parasitic diseases; Z90.710 Acquired absence of both cervix and uterus; Z88.1 Allergy status to other antibiotic agents; Z88.8 Allergy status to other drugs, medicaments and biological substances
CPT/HCPCS: 96376 ×3; 96365; 96366; 96375; 99285; 36415; 80048 ×2; 85025; 81003; 81001; 87086; 74177; G0378 ×3; J1335 ×3; J1885 ×3; Q9967

== ENCOUNTER 2024-08-06 17:10 | Emergency (ER) | payer MEDICAID ==
--- NOTE | 2024-08-06 18:10 | ED ---
Headache HPI - General Chief Complaint: Headache Stated Complaint: migraine Time Seen by Provider: 08/06/24 17:18 Source: patient, RN notes reviewed Mode of arrival: ambulatory Limitations: no limitations - History of Present Illness Initial Comments: This is a 49-year-old female with history of migraines complaining of constant pain (7 out of 10) above left eye x 6 days. Patient states she was sent by her primary care, stating they did not have the normal saline required for a migraine cocktail. Patient states it feels like a nail is being driven into her head. Patient endorses associated photophobia, phonophobia and nausea. Endorses some numbness from her left fingers to her left elbow. Denies upper extremity weakness or her left lower extremity weakness/paresthesia. Patient states that this feels like past migraines. Patient denies fever, chills, neck stiffness, chest pain, shortness of breath, abdominal pain, vomiting, diarrhea, dizziness. MD Complaint: "migraine" Onset/Timin -: days(s) Onset Description: gradual Location: left Severity scale (1-10): 7 Quality: sharp Consistency: constant Improves With: nothing Worsens With: none Associated Symptoms: photophobia, sensitivity to sound, tingling/numbness - Related Data Home Medications Medication Instructions Recorded Confirmed Metoprolol Succinate (ER) [Toprol 150 mg PO BID 05/07/18 07/31/24 XL] Pregabalin [Lyrica] 150 mg PO TID 04/21/20 07/31/24 Vortioxetine Hydrobromide 20 mg PO HS 04/21/20 07/31/24 [Trintellix] Zolpidem [Ambien] 10 mg PO HS 04/21/20 07/31/24 ARIPiprazole [Abilify] 2 mg PO HS 03/10/21 07/31/24 amLODIPine [Norvasc] 5 mg PO HS 03/10/21 07/31/24 Cyclobenzaprine [Flexeril] 10 mg PO BID PRN 07/09/23 07/31/24 DULoxetine HCL [Cymbalta] 60 mg PO HS 07/09/23 07/31/24 cloNIDine HCL [Catapres] 0.1 mg PO HS 07/09/23 07/31/24 Albuterol Inhaler [Ventolin Hfa 1 - 2 puff INHALATION RT-Q6H PRN 02/11/24 07/31/24 Inhaler] Butalb/APAP/Caff 50-325-40Mg 1 tab PO Q6H PRN 06/07/24 07/31/24 [Fioricet 50-325-40] Rizatriptan Benzoate [Rizatriptan] 10 mg PO BID PRN MDD 20 mg 06/07/24 07/31/24 hydroCHLOROthiazide [Hydrodiuril] 25 mg PO HS 06/07/24 07/31/24 Azelastine HCl [Astelin Nasal 2 spr EA NOSTRIL BID 07/31/24 07/31/24 [place]] Ketorolac [Toradol] 10 mg PO Q8H PRN 07/31/24 07/31/24 Previous Rx's Medication Instructions Recorded Metoclopramide [Reglan] 10 mg PO Q6H PRN #30 tab 06/07/24 Ondansetron Odt [Zofran ODT] 4 mg PO Q8HR PRN #30 tab 06/07/24 Nitrofurantoin Monohyd/M-Cryst 100 mg PO Q12HR #14 cap 08/02/24 [Macrobid] Allergies Allergy/AdvReac Type Severity Reaction Status Date / Time ofloxacin [From Floxin] AdvReac Unknown Hallucinati Verified 08/06/24 17:28 ons SAI Inhibitors AdvReac ANGIOEDEMA Verified 08/06/24 17:28 bupropion [From Wellbutrin] AdvReac seizure Verified 08/06/24 17:28 venlafaxine [From Effexor] AdvReac seizure Verified 08/06/24 17:28 Review of Systems ROS Statement: Those systems with pertinent positive or pertinent negative responses have been documented in the HPI. ROS Other: All systems not noted in ROS Statement are negative. Past Medical History Past Medical History: GERD/Reflux, Hypertension, Osteoarthritis (OA), Pneumonia, Renal Disease Additional Past Medical History / Comment(s): kidney stones/septic stone, environmental allergies, pneumonia aug 2021 post-op, herniated discs, occasional tachycardia, ileus History of Any Multi-Drug Resistant Organisms: ESBL Date of last positivie culture/infection: 01/17/24 MDRO Source:: urine Past Surgical History: Adenoidectomy, Bariatric Surgery, Section, Cholecystectomy, Hysterectomy, Joint Replacement, Orthopedic Surgery, Tonsillectomy Additional Past Surgical History / Comment(s): 08/09/23 cystoscopy with L lithotripsy/L stent removed, left knee replacement, arthroscopy right knee, lap band 16 yrs ago- no fluid in band per pt. surgery at [facility]), 03/23/22 trigger finger, KIDNEY STONE SX, gastric sleeve 10/11, ankle cyst removed as child, samaria ureter stents Past Anesthesia/Blood Transfusion Reactions: Postoperative Nausea & Vomiting (PONV) Additional Past Anesthesia/Blood Transfusion Reaction / Comment(s): grandmother- difficulty waking up, slight fever one time but not ever told it was malignant hyperthermia Past Psychological History: Depression Smoking Status: Never smoker Past Alcohol Use History: None Reported Past Drug Use History: None Reported - Past Family History Mother Family Medical History: Cancer, Hypertension General Exam - General Exam Comments Initial Comments: Patient seen lying in bed covering eyes with shirt to block light Limitations: no limitations General appearance: alert, in no apparent distress Head exam: Present: atraumatic, normocephalic, normal inspection Eye exam: Present: normal appearance, PERRL, EOMI. Absent: scleral icterus, conjunctival injection, nystagmus, periorbital swelling Pupils: Present: normal accommodation ENT exam: Present: normal exam, mucous membranes moist Neck exam: Present: normal inspection. Absent: tenderness, meningismus, lymphadenopathy Respiratory exam: Present: normal lung sounds bilaterally. Absent: respiratory distress, wheezes, rales, rhonchi, stridor Cardiovascular Exam: Present: regular rate, normal rhythm, normal heart sounds. Absent: systolic murmur, diastolic murmur, rubs, gallop, clicks GI/Abdominal exam: Present: soft, normal bowel sounds. Absent: distended, tenderness, guarding, rebound, rigid Extremities exam: Present: normal inspection, full ROM, normal capillary refill, other (Left upper extremity strength 5 out of 5 at shoulder, elbow and drug worker. Bilateral radial pulses +2. Capillary refill less than 2 seconds.). Absent: tenderness, pedal edema, joint swelling, calf tenderness Back exam: Present: normal inspection Neurological exam: Present: alert, oriented X3, CN II-XII intact, other (Orient stroke scale negative.) Psychiatric exam: Present: normal affect, normal mood Skin exam: Present: warm, dry, intact, normal color. Absent: rash Course Vital Signs 08/06/24 08/06/24 17:28 18:50 Temperature 98.7 F 97.8 F Pulse Rate 80 76 Respiratory 18 16 Rate Blood Pressure 121/80 164/82 O2 Sat by Pulse 96 99 Oximetry Medical Decision Making - Medical Decision Making Was pt. sent in by a medical professional or institution (, PA, RRTS, urgent care, hospital, or custodial...) When possible be specific @ -[No] Did you speak to anyone other than the patient for history (EMS, parent, family, police, friend...)? What history was obtained from this source @ -[No] Did you review nursing and triage notes (agree or disagree)? Why? @ -[I reviewed and agree with nursing and triage notes] Were old charts reviewed (outside hosp., previous admission, EMS record, old EKG, old radiological studies, urgent care reports/EKG's, custodial records)? Report findings @ -[No old charts were reviewed] Differential Diagnosis (chest pain, altered mental status, abdominal pain women, abdominal pain men, vaginal bleeding, weakness, fever, dyspnea, syncope, headache, dizziness, GI bleed, back pain, seizure, CVA, palpatations, mental health, musculoskeletal)? @ -Differential Headache: Migraine, tension, cluster, carbon monoxide, central venous thrombosis, pension karma temporal arteritis, acute closure glaucoma, intercranial hemorrhage, mastoiditis, sinusitis, head injury, this is not meant to be an all-inclusive list. EKG interpreted by me (3pts min.). @ -Not done X-rays interpreted by me (1pt min.). @ -[None done] CT interpreted by me (1pt min.). @ -[None done] U/S interpreted by me (1pt. min.). @ -[None done] What testing was considered but not performed or refused? (CT, X-rays, U/S, labs)? Why? @ -[None] What meds were considered but not given or refused? Why? @ -[None] Did you discuss the management of the patient with other professionals (professionals i.e. , DAR, RRTS, lab, RT, psych nurse, renal social worker, emergency room registered nurse, teacher, science and operations officer, case management manager)? Give summary @ -[No] Was smoking cessation discussed for >3mins.? @ -[No] Was critical care preformed (if so, how long)? @ -[No] Were there social determinants of health that impacted care today? How? (Homelessness, low income, unemployed, alcoholism, drug addiction, transportation, low edu. Level, literacy, decrease access to med. care, long term, rehab)? @ -[No] Was there de-escalation of care discussed even if they declined (Discuss DNR or withdrawal of care, Hospice)? DNR status @ -[No] What co-morbidities impacted this encounter? (DM, HTN, Smoking, COPD, CAD, Cancer, CVA, ARF, Chemo, Hep., AIDS, mental health diagnosis, sleep apnea, morbid obesity)? @ -[None] Was patient admitted / discharged? Hospital course, mention meds given and route, prescriptions, significant lab abnormalities, going to OR and other pertinent info. @ -[hospital course] Undiagnosed new problem with uncertain prognosis? @ -[No] Drug Therapy requiring intensive monitoring for toxicity (Heparin, Nitro, Insulin, Cardizem)? @ -[No] Were any procedures done? @ -[No] Diagnosis/symptom? @ -Migraine without aura Acute, or Chronic, or Acute on Chronic? @ -Acute Uncomplicated (without systemic symptoms) or Complicated (systemic symptoms)? @ -[default] Side effects of treatment? @ -[No] Exacerbation, Progression, or Severe Exacerbation? @ -[No] Poses a threat to life or bodily function? How? (Chest pain, [place], [place], pneumonia, PE, COPD, DKA, ARF, appy, cholecystitis, CVA, Diverticulitis, Homicidal, Suicidal, threat to staff... and all critical care pts) @ -[No] Disposition Clinical Impression: Migraine headache Disposition: HOME SELF-CARE Condition: Good Instructions (If sedation given, give patient instructions): Migraine Headache (ED) Is patient prescribed a controlled substance at d/c from ED?: No Referrals: Rosa Stewart MD [Primary Care Provider] - 1-2 days Time of Disposition: 20:36
[2024-08-06] MEDS: KETOROLAC 15 MG/ML 1 ML VIAL IM STA (18:47)
[2024-08-06] MEDS: METOCLOPRAMIDE 5 MG/ML 2 ML VIAL IM STA (18:47)
[2024-08-06] MEDS: ONDANSETRON 4 MG/2 ML VIAL IM STA (18:48)
[2024-08-06 18:55] VITALS: RESP 16; TEMP 97.8
[2024-08-06] MEDS: diphenhydrAMINE 50 MG/ML 1 ML VIAL IVP STA (20:07)
[2024-08-06] MEDS: KETOROLAC 15 MG/ML 1 ML VIAL IVP STA (20:10)
[2024-08-06 20:50] VITALS: BP 135/86; PULSE 65
== END 2024-08-06 20:50 | disposition home or self-care (01) ==
LOC: EC 17:10
DX: G43.909 Migraine, unspecified, not intractable, without status migrainosus (principal); Z88.8 Allergy status to other drugs, medicaments and biological substances
CPT/HCPCS: 99283; 96374; 96375; 96372 ×3; J1200; J2765; J2405; J1885

== ENCOUNTER 2024-09-14 14:53 | Emergency (ER) | payer MEDICAID ==
--- NOTE | 2024-09-14 16:46 | ED ---
URI HPI - General Chief Complaint: Upper Respiratory Infection Stated Complaint: cough, chills Time Seen by Provider: 09/14/24 15:10 Source: patient, RN notes reviewed Mode of arrival: ambulatory Limitations: no limitations - History of Present Illness Initial Comments: This is a 49-year-old female with history of pneumonia and renal issues presenting with cough and congestion x 5 days. Patient endorses having hot/cold flashes and brown sputum. Also mentions left lower lung pain. Endorses use of Mucinex and cold/flu medication with minimal relief. Denies dyspnea/SOB, hemoptysis, dizziness, abdominal pain, N/V/D. MD Complaint: cough, nasal congestion Onset/Timin -: days(s) - Related Data Home Medications Medication Instructions Recorded Confirmed Metoprolol Succinate (ER) [Toprol 150 mg PO BID 05/07/18 07/31/24 XL] Pregabalin [Lyrica] 150 mg PO TID 04/21/20 07/31/24 Vortioxetine Hydrobromide 20 mg PO HS 04/21/20 07/31/24 [Trintellix] Zolpidem [Ambien] 10 mg PO HS 04/21/20 07/31/24 ARIPiprazole [Abilify] 2 mg PO HS 03/10/21 07/31/24 amLODIPine [Norvasc] 5 mg PO HS 03/10/21 07/31/24 Cyclobenzaprine [Flexeril] 10 mg PO BID PRN 07/09/23 07/31/24 DULoxetine HCL [Cymbalta] 60 mg PO HS 07/09/23 07/31/24 cloNIDine HCL [Catapres] 0.1 mg PO HS 07/09/23 07/31/24 Albuterol Inhaler [Ventolin Hfa 1 - 2 puff INHALATION RT-Q6H PRN 02/11/24 07/31/24 Inhaler] Butalb/APAP/Caff 50-325-40Mg 1 tab PO Q6H PRN 06/07/24 07/31/24 [Fioricet 50-325-40] Rizatriptan Benzoate [Rizatriptan] 10 mg PO BID PRN MDD 20 mg 06/07/24 07/31/24 hydroCHLOROthiazide [Hydrodiuril] 25 mg PO HS 06/07/24 07/31/24 Azelastine HCl [Astelin Nasal 2 spr EA NOSTRIL BID 07/31/24 07/31/24 [place]] Ketorolac [Toradol] 10 mg PO Q8H PRN 07/31/24 07/31/24 Previous Rx's Medication Instructions Recorded Metoclopramide [Reglan] 10 mg PO Q6H PRN #30 tab 06/07/24 Ondansetron Odt [Zofran ODT] 4 mg PO Q8HR PRN #30 tab 06/07/24 Nitrofurantoin Monohyd/M-Cryst 100 mg PO Q12HR #14 cap 08/02/24 [Macrobid] methylPREDNISolone Dose Pack 4 mg PO DIRECTED #21 tab 09/14/24 [Medrol Dose Pack] Allergies Allergy/AdvReac Type Severity Reaction Status Date / Time ofloxacin [From Floxin] AdvReac Unknown Hallucinati Verified 09/14/24 15:39 ons SAI Inhibitors AdvReac ANGIOEDEMA Verified 09/14/24 15:39 bupropion [From Wellbutrin] AdvReac seizure Verified 09/14/24 15:39 venlafaxine [From Effexor] AdvReac seizure Verified 09/14/24 15:39 Review of Systems ROS Statement: Those systems with pertinent positive or pertinent negative responses have been documented in the HPI. ROS Other: All systems not noted in ROS Statement are negative. Past Medical History Past Medical History: GERD/Reflux, Hypertension, Osteoarthritis (OA), Pneumonia, Renal Disease Additional Past Medical History / Comment(s): kidney stones/septic stone, environmental allergies, pneumonia aug 2021 post-op, herniated discs, occasional tachycardia, ileus History of Any Multi-Drug Resistant Organisms: ESBL Date of last positivie culture/infection: 01/17/24 MDRO Source:: urine Past Surgical History: Adenoidectomy, Bariatric Surgery, Section, Cholecystectomy, Hysterectomy, Joint Replacement, Orthopedic Surgery, Tonsillectomy Additional Past Surgical History / Comment(s): 08/09/23 cystoscopy with L lithotripsy/L stent removed, left knee replacement, arthroscopy right knee, lap band 16 yrs ago- no fluid in band per pt. surgery at [facility]), 03/23/22 trigger finger, KIDNEY STONE SX, gastric sleeve 10/11, ankle cyst removed as child, samaria ureter stents Past Anesthesia/Blood Transfusion Reactions: Postoperative Nausea & Vomiting (PONV) Additional Past Anesthesia/Blood Transfusion Reaction / Comment(s): grandmother- difficulty waking up, slight fever one time but not ever told it was malignant hyperthermia Past Psychological History: Depression Smoking Status: Never smoker Past Alcohol Use History: None Reported Past Drug Use History: None Reported - Past Family History Mother Family Medical History: Cancer, Hypertension General Exam Limitations: no limitations Course Vital Signs 09/14/24 15:35 Temperature 98.1 F Pulse Rate 80 Respiratory 20 Rate Blood Pressure 141/93 O2 Sat by Pulse 98 Oximetry Medical Decision Making - Medical Decision Making Was pt. sent in by a medical professional or institution (, PA, FINANCIAL REPORTING MANAGER, urgent care, hospital, or longterm...) When possible be specific @ -[No] Did you speak to anyone other than the patient for history (EMS, parent, family, police, friend...)? What history was obtained from this source @ -[No] Did you review nursing and triage notes (agree or disagree)? Why? @ -[I reviewed and agree with nursing and triage notes] Were old charts reviewed (outside hosp., previous admission, EMS record, old EKG, old radiological studies, urgent care reports/EKG's, longterm records)? Report findings @ -[No old charts were reviewed] Differential Diagnosis (chest pain, altered mental status, abdominal pain women, abdominal pain men, vaginal bleeding, weakness, fever, dyspnea, syncope, headache, dizziness, GI bleed, back pain, seizure, CVA, palpatations, mental health, musculoskeletal)? @ -Differential Fever: Pneumonia, viral URI, endocarditis, myocarditis, pericarditis, otitis, sinusitis, peritonsillar Abscess, retropharyngeal Abscess, epiglottitis, peritonitis, appendicitis, [place] cystitis, diverticulitis, hepatitis, colitis, UTI, PID, TOA, pyelonephritis, prostatitis, epididymitis, meningitis, encephalitis, pulmonary embolism, CVA, thyroid storm, pancreatitis, adrenal crisis, cavernous sinus thrombosis, this is not meant to be an all-inclusive list. EKG interpreted by me (3pts min.). @ -Not done X-rays interpreted by me (1pt min.). @ -[None done] CT interpreted by me (1pt min.). @ -[None done] U/S interpreted by me (1pt. min.). @ -[None done] What testing was considered but not performed or refused? (CT, X-rays, U/S, labs)? Why? @ -[None] What meds were considered but not given or refused? Why? @ -[None] Did you discuss the management of the patient with other professionals (professionals i.e. , PA, FINANCIAL REPORTING MANAGER, lab, RT, psych nurse, licensed clinical social worker, superintendent recreation, teacher, supervisor dog license officer, case management social worker)? Give summary @ -[No] Was smoking cessation discussed for >3mins.? @ -[No] Was critical care preformed (if so, how long)? @ -[No] Were there social determinants of health that impacted care today? How? (Homelessness, low income, unemployed, alcoholism, drug addiction, transportation, low edu. Level, literacy, decrease access to med. care, halfway, rehab)? @ -[No] Was there de-escalation of care discussed even if they declined (Discuss DNR or withdrawal of care, Hospice)? DNR status @ -[No] What co-morbidities impacted this encounter? (DM, HTN, Smoking, COPD, CAD, Cancer, CVA, ARF, Chemo, Hep., AIDS, mental health diagnosis, sleep apnea, morbid obesity)? @ -[None] Was patient admitted / discharged? Hospital course, mention meds given and route, prescriptions, significant lab abnormalities, going to OR and other pertinent info. @ -[hospital course] Undiagnosed new problem with uncertain prognosis? @ -[No] Drug Therapy requiring intensive monitoring for toxicity (Heparin, Nitro, Insulin, Cardizem)? @ -[No] Were any procedures done? @ -[No] Diagnosis/symptom? @ -URI Acute, or Chronic, or Acute on Chronic? @ -Acute Uncomplicated (without systemic symptoms) or Complicated (systemic symptoms)? @ -Complicated Side effects of treatment? @ -[No] Exacerbation, Progression, or Severe Exacerbation? @ -[No] Poses a threat to life or bodily function? How? (Chest pain, [place], [place], pneumonia, PE, COPD, DKA, ARF, appy, cholecystitis, CVA, Diverticulitis, Homicidal, Suicidal, threat to staff... and all critical care pts) @ -[No] - Lab Data Lab Results 09/14/24 Range/Units 17:31 Influenza Type A (PCR) Not Detected (Not Detectd) Influenza Type B (PCR) Not Detected (Not Detectd) RSV (PCR) Not Detected (Not Detectd) SARS-CoV-2 (PCR) Not Detected (Not Detectd) Disposition Clinical Impression: Bronchitis, Upper respiratory tract infection Disposition: HOME SELF-CARE Condition: Good Instructions (If sedation given, give patient instructions): Upper Respiratory Infection (ED) Prescriptions: methylPREDNISolone Dose Pack [Medrol Dose Pack] 4 mg PO DIRECTED #21 tab Is patient prescribed a controlled substance at d/c from ED?: No Referrals: Rosa Stewart MD [Primary Care Provider] - 1-2 days Time of Disposition: 19:11
--- NOTE | 2024-09-14 17:27 | XR ---
EXAMINATION TYPE: XR chest 2V DATE OF EXAM: 09/14/2024 5:12 PM COMPARISON: Chest radiographs from 12/18/2023 CLINICAL INDICATION: Female, 49 years old with history of Productive cough; [facility] TECHNIQUE: XR chest 2V Frontal and lateral views of the chest. FINDINGS: Lungs/Pleura: There is no evidence of pleural effusion, focal consolidation, or pneumothorax. Pulmonary vascularity: Unremarkable. Heart/mediastinum: Cardiomediastinal silhouette is unremarkable. Musculoskeletal: No acute osseous pathology. IMPRESSION: No acute cardiopulmonary disease/process. [facility], , 09/14/2024 5:24 PM
[2024-09-14] MEDS: methylPREDNISolone SOD SUCCI 125 MG/2 ML VIAL IM ONE (19:17)
[2024-09-14 19:21] VITALS: BP 118/79; PULSE 79; RESP 18; TEMP 97.8
== END 2024-09-14 19:20 | disposition home or self-care (01) ==
LOC: EC 14:53
DX: J40 Bronchitis, not specified as acute or chronic (principal); J06.9 Acute upper respiratory infection, unspecified; Z88.1 Allergy status to other antibiotic agents; Z88.8 Allergy status to other drugs, medicaments and biological substances
CPT/HCPCS: 87636; 71046; 99284; 96372; J2919

== ENCOUNTER 2024-10-16 22:24 | Inpatient (IN) | payer MEDICAID ==
--- NOTE | 2024-10-16 22:41 | ED ---
Psych HPI - General Chief Complaint: Psychiatric Symptoms Stated Complaint: Suicidal Ideation Time Seen by Provider: 10/16/24 22:34 Source: patient, RN notes reviewed Mode of arrival: ambulatory - History of Present Illness Initial Comments: This is a 49-year-old female presenting with intentional overdose. Patient states she intentionally took 50 tablets of Tylenol migraine (500 mg APAP, 65 mg caffeine) at 2100 this evening. (50 x 500 = 25 grams APAP) States she called the crisis hotline who advised her to go to the ER. Patient states she is going through a tough time since her children went to college, leaving her "alone". Patient states one of her sons also 12 years ago. States she does not want to be committed, just wants someone to talk to. States her psychiatrist is unavailable until Monday. States she currently takes Trintellix and Abilify, stating she does not feel they are working well. Patient denies history of past suicide attempts. Patient denies any physical symptoms. Denies chest pain, dyspnea, abdominal pain, N/V/D, dizziness, palpitations. MD Complaint: suicidal ideation Onset/Timin -: hour(s) Associated Psychiatric Symptoms: depression, suicidal ideation Associated Symptoms: denies other symptoms Treatments Prior to Arrival: none If Self Harm: admits thoughts of self harm, has plan, has acted on plan, intentional overdose - Related Data Home Medications Medication Instructions Recorded Confirmed Metoprolol Succinate (ER) [Toprol 150 mg PO BID 05/07/18 07/31/24 XL] Pregabalin [Lyrica] 150 mg PO TID 04/21/20 07/31/24 Vortioxetine Hydrobromide 20 mg PO HS 04/21/20 07/31/24 [Trintellix] Zolpidem [Ambien] 10 mg PO HS 04/21/20 07/31/24 ARIPiprazole [Abilify] 2 mg PO HS 03/10/21 07/31/24 amLODIPine [Norvasc] 5 mg PO HS 03/10/21 07/31/24 Cyclobenzaprine [Flexeril] 10 mg PO BID PRN 07/09/23 07/31/24 DULoxetine HCL [Cymbalta] 60 mg PO HS 07/09/23 07/31/24 cloNIDine HCL [Catapres] 0.1 mg PO HS 07/09/23 07/31/24 Albuterol Inhaler [Ventolin Hfa 1 - 2 puff INHALATION RT-Q6H PRN 02/11/24 07/31/24 Inhaler] Butalb/APAP/Caff 50-325-40Mg 1 tab PO Q6H PRN 06/07/24 07/31/24 [Fioricet 50-325-40] Rizatriptan Benzoate [Rizatriptan] 10 mg PO BID PRN MDD 20 mg 06/07/24 07/31/24 hydroCHLOROthiazide [Hydrodiuril] 25 mg PO HS 06/07/24 07/31/24 Azelastine HCl [Astelin Nasal 2 spr EA NOSTRIL BID 07/31/24 07/31/24 [place]] Ketorolac [Toradol] 10 mg PO Q8H PRN 07/31/24 07/31/24 Previous Rx's Medication Instructions Recorded Metoclopramide [Reglan] 10 mg PO Q6H PRN #30 tab 06/07/24 Ondansetron Odt [Zofran ODT] 4 mg PO Q8HR PRN #30 tab 06/07/24 Nitrofurantoin Monohyd/M-Cryst 100 mg PO Q12HR #14 cap 08/02/24 [Macrobid] methylPREDNISolone Dose Pack 4 mg PO DIRECTED #21 tab 09/14/24 [Medrol Dose Pack] Allergies Allergy/AdvReac Type Severity Reaction Status Date / Time ofloxacin [From Floxin] AdvReac Unknown Hallucinati Verified 10/16/24 22:29 ons SAI Inhibitors AdvReac ANGIOEDEMA Verified 10/16/24 22:29 bupropion [From Wellbutrin] AdvReac seizure Verified 10/16/24 22:29 venlafaxine [From Effexor] AdvReac seizure Verified 10/16/24 22:29 Review of Systems ROS Statement: Those systems with pertinent positive or pertinent negative responses have been documented in the HPI. ROS Other: All systems not noted in ROS Statement are negative. Past Medical History Past Medical History: GERD/Reflux, Hypertension, Osteoarthritis (OA), Pneumonia, Renal Disease Additional Past Medical History / Comment(s): kidney stones/septic stone, environmental allergies, pneumonia aug 2021 post-op, herniated discs, occasional tachycardia, ileus History of Any Multi-Drug Resistant Organisms: ESBL Date of last positivie culture/infection: 01/17/24 MDRO Source:: urine Past Surgical History: Adenoidectomy, Bariatric Surgery, Section, Cholecystectomy, Hysterectomy, Joint Replacement, Orthopedic Surgery, Tonsillectomy Additional Past Surgical History / Comment(s): 08/09/23 cystoscopy with L lithotripsy/L stent removed, left knee replacement, arthroscopy right knee, lap band 16 yrs ago- no fluid in band per pt. surgery at [facility]), 03/23/22 trigger finger, KIDNEY STONE SX, gastric sleeve 10/11, ankle cyst removed as child, samaria ureter stents Past Anesthesia/Blood Transfusion Reactions: Postoperative Nausea & Vomiting (PONV) Additional Past Anesthesia/Blood Transfusion Reaction / Comment(s): grandmother- difficulty waking up, slight fever one time but not ever told it was malignant hyperthermia Past Psychological History: Depression Smoking Status: Never smoker Past Alcohol Use History: None Reported Past Drug Use History: None Reported - Past Family History Mother Family Medical History: Cancer, Hypertension General Exam General appearance: alert, in distress (Patient is very tearful) Head exam: Present: atraumatic, normocephalic, normal inspection Eye exam: Present: normal appearance, PERRL, EOMI. Absent: scleral icterus, conjunctival injection, periorbital swelling ENT exam: Present: normal exam, mucous membranes moist Neck exam: Present: normal inspection. Absent: tenderness, meningismus, lymphadenopathy Respiratory exam: Present: normal lung sounds bilaterally. Absent: respiratory distress, wheezes, rales, rhonchi, stridor Cardiovascular Exam: Present: regular rate, normal rhythm, normal heart sounds. Absent: systolic murmur, diastolic murmur, rubs, gallop, clicks GI/Abdominal exam: Present: soft, normal bowel sounds. Absent: distended, tenderness, guarding, rebound, rigid Extremities exam: Present: normal inspection, full ROM, normal capillary refill. Absent: tenderness, pedal edema, joint swelling, calf tenderness Back exam: Present: normal inspection Neurological exam: Present: alert, oriented X3, CN II-XII intact Psychiatric exam: Present: normal affect, normal mood Skin exam: Present: warm, dry, intact, normal color. Absent: rash Course Vital Signs 01/29/25 01/30/25 01/30/25 22:26 00:07 01:05 Temperature 97.5 F L Pulse Rate 71 72 68 Respiratory 18 17 17 Rate Blood Pressure 149/88 110/50 113/67 O2 Sat by Pulse 99 97 98 Oximetry 10/17/24 10/17/24 02:00 03:07 Temperature 97.8 F Pulse Rate 59 L 62 Respiratory 18 17 Rate Blood Pressure 105/60 111/55 O2 Sat by Pulse 97 97 Oximetry Medical Decision Making - Medical Decision Making Was pt. sent in by a medical professional or institution (, PA, SYSTEMS ENG, urgent care, hospital, or care home...) When possible be specific @ -[No] Did you speak to anyone other than the patient for history (EMS, parent, family, police, friend...)? What history was obtained from this source @ -[No] Did you review nursing and triage notes (agree or disagree)? Why? @ -[I reviewed and agree with nursing and triage notes] Were old charts reviewed (outside hosp., previous admission, EMS record, old EKG, old radiological studies, urgent care reports/EKG's, care home records)? Report findings @ -[No old charts were reviewed] Differential Diagnosis (chest pain, altered mental status, abdominal pain women, abdominal pain men, vaginal bleeding, weakness, fever, dyspnea, syncope, headache, dizziness, GI bleed, back pain, seizure, CVA, palpatations, mental health, musculoskeletal)? @ -Differential Mental Health Depression, anxiety, bipolar, psychosis, schizophrenia, borderline personality, situational depression, adjustment disorder, behavioral disorder, brain tumor, malingering, substance abuse, encephalopathy, medication reaction, dementia, hypothyroidism, degenerative neurologic disorder, lupus.... This is not meant to be all-inclusive list EKG interpreted by me (3pts min.). @ -Sinus bradycardia without ST deviation or T wave inversion. Ventricular rate 58 bpm, SONYA 164 ms, QRS duration 106 ms, QTc 440 ms. X-rays interpreted by me (1pt min.). @ -[None done] CT interpreted by me (1pt min.). @ -[None done] U/S interpreted by me (1pt. min.). @ -[None done] What testing was considered but not performed or refused? (CT, X-rays, U/S, labs)? Why? @ -[None] What meds were considered but not given or refused? Why? @ -[None] Did you discuss the management of the patient with other professionals (professionals i.e. , PA, SYSTEMS ENG, lab, RT, psych nurse, social sciences research scientist, prototyper, teacher, operations officer afloat, director case management)? Give summary @ -[No] Was smoking cessation discussed for >3mins.? @ -[No] Was critical care preformed (if so, how long)? @ -[No] Were there social determinants of health that impacted care today? How? (Homele ssness, low income, unemployed, alcoholism, drug addiction, transportation, low edu. Level, literacy, decrease access to med. care, long term, rehab)? @ -[No] Was there de-escalation of care discussed even if they declined (Discuss DNR or withdrawal of care, Hospice)? DNR status @ -[No] What co-morbidities impacted this encounter? (DM, HTN, Smoking, COPD, CAD, Cancer, CVA, ARF, Chemo, Hep., AIDS, mental health diagnosis, sleep apnea, morbid obesity)? @ -[None] Was patient admitted / discharged? Hospital course, mention meds given and route, prescriptions, significant lab abnormalities, going to OR and other pertinent info. @ -[hospital course] Undiagnosed new problem with uncertain prognosis? @ -[No] Drug Therapy requiring intensive monitoring for toxicity (Heparin, Nitro, Insulin, Cardizem)? @ -[No] Were any procedures done? @ -[No] Diagnosis/symptom? @ -Intentional acetaminophen overdose, suicidal ideation Acute, or Chronic, or Acute on Chronic? @ -Acute Uncomplicated (without systemic symptoms) or Complicated (systemic symptoms)? @ -Uncomplicated Side effects of treatment? @ -[No] Exacerbation, Progression, or Severe Exacerbation? @ -[No] Poses a threat to life or bodily function? How? (Chest pain, [place], [place], pneumonia, PE, COPD, DKA, ARF, appy, cholecystitis, CVA, Diverticulitis, Homicidal, Suicidal, threat to staff... and all critical care pts) @ -Overdose of acetaminophen, liver failure - Lab Data Result diagrams: 10/16/24 23:18 10/16/24 23:02 Lab Results 10/16/24 10/16/24 10/16/24 Range/Units 23:00 23:02 23:18 WBC 11.3 H (3.8-10.6) k/uL RBC 4.30 (3.80-5.40) m/uL Hgb 10.9 L (11.4-16.0) gm/dL Hct 34.1 (34.0-46.0) % MCV 79.2 L (80.0-100.0) fL MCH 25.3 (25.0-35.0) pg MCHC 31.9 (31.0-37.0) g/dL RDW 17.3 H (11.5-15.5) % Plt Count 304 (150-450) k/uL MPV 8.3 Neutrophils % 50 % Lymphocytes % 40 % Monocytes % 4 % Eosinophils % 2 % Basophils % 0 % Neutrophils # 5.7 (1.3-7.7) k/uL Lymphocytes # 4.6 (1.0-4.8) k/uL Monocytes # 0.5 (0-1.0) k/uL Eosinophils # 0.3 (0-0.7) k/uL Basophils # 0.0 (0-0.2) k/uL Hypochromasia Slight Anisocytosis Slight Microcytosis Slight PT (10.0-12.5) sec INR (<1.2) APTT (22.0-30.0) sec VBG pH (7.31-7.41) VBG pCO2 (37-51) mmHg VBG HCO3 (24-28) mmol/L Sodium 135 L (137-145) mmol/L Potassium 4.0 (3.5-5.1) mmol/L Chloride 103 (98-107) mmol/L Carbon Dioxide 20 L (22-30) mmol/L Anion Gap 12 mmol/L BUN 20 H (7-17) mg/dL Creatinine 0.82 (0.52-1.04) mg/dL Est GFR (CKD-EPI)AfAm >90 (>60 ml/min/1.73 sqM) Est GFR (CKD-EPI)NonAf 83 (>60 ml/min/1.73 sqM) Glucose 158 H (74-99) mg/dL Lactic Ac Sepsis Rflx Plasma Lactic Acid Pietro (0.7-2.0) mmol/L Calcium 9.4 (8.4-10.2) mg/dL Total Bilirubin 0.2 (0.2-1.3) mg/dL AST 28 (14-36) U/L ALT 31 (4-34) U/L Alkaline Phosphatase 149 H (38-126) U/L Total Protein 6.6 (6.3-8.2) g/dL Albumin 4.1 (3.5-5.0) g/dL Salicylates 21.9 mg/dL Urine Opiates Screen (NotDetected) Ur Oxycodone Screen (NotDetected) Urine Methadone Screen (NotDetected) Acetaminophen 64.9 H* ug/mL Ur Barbiturates Screen (NotDetected) U Tricyclic Antidepress (NotDetected) Ur Phencyclidine Scrn (NotDetected) Ur Amphetamines Screen (NotDetected) U Methamphetamines Scrn (NotDetected) U Benzodiazepines Scrn (NotDetected) Urine Cocaine Screen (NotDetected) U Marijuana (THC) Screen (NotDetected) Serum Alcohol <10 mg/dL Acetone, Qual (Negative) Influenza Type A (PCR) Not Detected (Not Detectd) Influenza Type B (PCR) Not Detected (Not Detectd) RSV (PCR) Not Detected (Not Detectd) SARS-CoV-2 (PCR) Not Detected (Not Detectd) 10/16/24 10/16/24 10/16/24 Range/Units 23:18 23:18 23:19 WBC (3.8-10.6) k/uL RBC (3.80-5.40) m/uL Hgb (11.4-16.0) gm/dL Hct (34.0-46.0) % MCV (80.0-100.0) fL MCH (25.0-35.0) pg MCHC (31.0-37.0) g/dL RDW (11.5-15.5) % Plt Count (150-450) k/uL MPV Neutrophils % % Lymphocytes % % Monocytes % % Eosinophils % % Basophils % % Neutrophils # (1.3-7.7) k/uL Lymphocytes # (1.0-4.8) k/uL Monocytes # (0-1.0) k/uL Eosinophils # (0-0.7) k/uL Basophils # (0-0.2) k/uL Hypochromasia Anisocytosis Microcytosis PT 10.1 (10.0-12.5) sec INR 0.9 (<1.2) APTT 22.1 (22.0-30.0) sec VBG pH 7.44 H (7.31-7.41) VBG pCO2 34 L (37-51) mmHg VBG HCO3 23 L (24-28) mmol/L Sodium (137-145) mmol/L Potassium (3.5-5.1) mmol/L Chloride (98-107) mmol/L Carbon Dioxide (22-30) mmol/L Anion Gap mmol/L BUN (7-17) mg/dL Creatinine (0.52-1.04) mg/dL Est GFR (CKD-EPI)AfAm (>60 ml/min/1.73 sqM) Est GFR (CKD-EPI)NonAf (>60 ml/min/1.73 sqM) Glucose (74-99) mg/dL Lactic Ac Sepsis Rflx Plasma Lactic Acid Pietro 3.2 H* (0.7-2.0) mmol/L Calcium (8.4-10.2) mg/dL Total Bilirubin (0.2-1.3) mg/dL AST (14-36) U/L ALT (4-34) U/L Alkaline Phosphatase (38-126) U/L Total Protein (6.3-8.2) g/dL Albumin (3.5-5.0) g/dL Salicylates mg/dL Urine Opiates Screen (NotDetected) Ur Oxycodone Screen (NotDetected) Urine Methadone Screen (NotDetected) Acetaminophen ug/mL Ur Barbiturates Screen (NotDetected) U Tricyclic Antidepress (NotDetected) Ur Phencyclidine Scrn (NotDetected) Ur Amphetamines Screen (NotDetected) U Methamphetamines Scrn (NotDetected) U Benzodiazepines Scrn (NotDetected) Urine Cocaine Screen (NotDetected) U Marijuana (THC) Screen (NotDetected) Serum Alcohol mg/dL Acetone, Qual (Negative) Influenza Type A (PCR) (Not Detectd) Influenza Type B (PCR) (Not Detectd) RSV (PCR) (Not Detectd) SARS-CoV-2 (PCR) (Not Detectd) 10/17/24 10/17/24 10/17/24 Range/Units 00:19 00:51 01:05 WBC (3.8-10.6) k/uL RBC (3.80-5.40) m/uL Hgb (11.4-16.0) gm/dL Hct (34.0-46.0) % MCV (80.0-100.0) fL MCH (25.0-35.0) pg MCHC (31.0-37.0) g/dL RDW (11.5-15.5) % Plt Count (150-450) k/uL MPV Neutrophils % % Lymphocytes % % Monocytes % % Eosinophils % % Basophils % % Neutrophils # (1.3-7.7) k/uL Lymphocytes # (1.0-4.8) k/uL Monocytes # (0-1.0) k/uL Eosinophils # (0-0.7) k/uL Basophils # (0-0.2) k/uL Hypochromasia Anisocytosis Microcytosis PT (10.0-12.5) sec INR (<1.2) APTT (22.0-30.0) sec VBG pH (7.31-7.41) VBG pCO2 (37-51) mmHg VBG HCO3 (24-28) mmol/L Sodium (137-145) mmol/L Potassium (3.5-5.1) mmol/L Chloride (98-107) mmol/L Carbon Dioxide (22-30) mmol/L Anion Gap mmol/L BUN (7-17) mg/dL Creatinine (0.52-1.04) mg/dL Est GFR (CKD-EPI)AfAm (>60 ml/min/1.73 sqM) Est GFR (CKD-EPI)NonAf (>60 ml/min/1.73 sqM) Glucose (74-99) mg/dL Lactic Ac Sepsis Rflx Y Plasma Lactic Acid Pietro (0.7-2.0) mmol/L Calcium (8.4-10.2) mg/dL Total Bilirubin (0.2-1.3) mg/dL AST (14-36) U/L ALT (4-34) U/L Alkaline Phosphatase (38-126) U/L Total Protein (6.3-8.2) g/dL Albumin (3.5-5.0) g/dL Salicylates mg/dL Urine Opiates Screen Not Detected (NotDetected) Ur Oxycodone Screen Not Detected (NotDetected) Urine Methadone Screen Not Detected (NotDetected) Acetaminophen 39.5 ug/mL Ur Barbiturates Screen Detected H (NotDetected) U Tricyclic Antidepress Not Detected (NotDetected) Ur Phencyclidine Scrn Not Detected (NotDetected) Ur Amphetamines Screen Not Detected (NotDetected) U Methamphetamines Scrn Not Detected (NotDetected) U Benzodiazepines Scrn Not Detected (NotDetected) Urine Cocaine Screen Not Detected (NotDetected) U Marijuana (THC) Screen Not Detected (NotDetected) Serum Alcohol mg/dL Acetone, Qual Negative (Negative) Influenza Type A (PCR) (Not Detectd) Influenza Type B (PCR) (Not Detectd) RSV (PCR) (Not Detectd) SARS-CoV-2 (PCR) (Not Detectd) 10/17/24 Range/Units 01:05 WBC (3.8-10.6) k/uL RBC (3.80-5.40) m/uL Hgb (11.4-16.0) gm/dL Hct (34.0-46.0) % MCV (80.0-100.0) fL MCH (25.0-35.0) pg MCHC (31.0-37.0) g/dL RDW (11.5-15.5) % Plt Count (150-450) k/uL MPV Neutrophils % % Lymphocytes % % Monocytes % % Eosinophils % % Basophils % % Neutrophils # (1.3-7.7) k/uL Lymphocytes # (1.0-4.8) k/uL Monocytes # (0-1.0) k/uL Eosinophils # (0-0.7) k/uL Basophils # (0-0.2) k/uL Hypochromasia Anisocytosis Microcytosis PT (10.0-12.5) sec INR (<1.2) APTT (22.0-30.0) sec VBG pH (7.31-7.41) VBG pCO2 (37-51) mmHg VBG HCO3 (24-28) mmol/L Sodium (137-145) mmol/L Potassium (3.5-5.1) mmol/L Chloride (98-107) mmol/L Carbon Dioxide (22-30) mmol/L Anion Gap mmol/L BUN (7-17) mg/dL Creatinine (0.52-1.04) mg/dL Est GFR (CKD-EPI)AfAm (>60 ml/min/1.73 sqM) Est GFR (CKD-EPI)NonAf (>60 ml/min/1.73 sqM) Glucose (74-99) mg/dL Lactic Ac Sepsis Rflx Plasma Lactic Acid Pietro (0.7-2.0) mmol/L Calcium (8.4-10.2) mg/dL Total Bilirubin (0.2-1.3) mg/dL AST (14-36) U/L ALT (4-34) U/L Alkaline Phosphatase (38-126) U/L Total Protein (6.3-8.2) g/dL Albumin (3.5-5.0) g/dL Salicylates 26.2 mg/dL Urine Opiates Screen (NotDetected) Ur Oxycodone Screen (NotDetected) Urine Methadone Screen (NotDetected) Acetaminophen ug/mL Ur Barbiturates Screen (NotDetected) U Tricyclic Antidepress (NotDetected) Ur Phencyclidine Scrn (NotDetected) Ur Amphetamines Screen (NotDetected) U Methamphetamines Scrn (NotDetected) U Benzodiazepines Scrn (NotDetected) Urine Cocaine Screen (NotDetected) U Marijuana (THC) Screen (NotDetected) Serum Alcohol mg/dL Acetone, Qual (Negative) Influenza Type A (PCR) (Not Detectd) Influenza Type B (PCR) (Not Detectd) RSV (PCR) (Not Detectd) SARS-CoV-2 (PCR) (Not Detectd) Disposition Clinical Impression: Attempted suicide, Intentional acetaminophen overdose Condition: Stable Is patient prescribed a controlled substance at d/c from ED?: No Referrals: Rosa Stewart MD [Primary Care Provider] - 1-2 days Time of Disposition: 02:55
[2024-10-16] MEDS: SODIUM CHLORIDE 0.9% 1,000 ML IV STA (23:36)
[2024-10-16 23:41] LABS: VBG PH 7.44 (7.31-7.41)
[2024-10-16 23:41] LABS: Anisocytosis Slight; Basophils % (A) 0 %; Eosinophils # (A) 0.3 k/uL (0-0.7); Eosinophils % (A) 2 %; HCT 34.1 % (34.0-46.0); HGB 10.9 gm/dL (11.4-16.0); Hypochromasia Slight; Lymphocytes # (A) 4.6 k/uL (1.0-4.8); Lymphocytes % (A) 40 %; MCH 25.3 pg (25.0-35.0); MCHC 31.9 g/dL (31.0-37.0); MCV 79.2 fL (80.0-100.0); Mean Platelet Volume 8.3; Microcytosis Slight; Monocytes # (A) 0.5 k/uL (0-1.0); Monocytes % (A) 4 %; Neutrophils # (A) 5.7 k/uL (1.3-7.7); Neutrophils % (A) 50 %; Platelet Count 304 k/uL (150-450); RDW 17.3 % (11.5-15.5); WBC 11.3 k/uL (3.8-10.6)
[2024-10-16 23:54] LABS: ALT 31 U/L (4-34); AST 28 U/L (14-36); African American GFR (CKD) >90 (>60 ml/min/1.73 sqM); Albumin 4.1 g/dL (3.5-5.0); Alcohol <10 mg/dL; Alkaline Phosphatase 149 U/L (38-126); Anion Gap 12 mmol/L; Blood Urea Nitrogen 20 mg/dL (7-17); Calcium 9.4 mg/dL (8.4-10.2); Carbon Dioxide 20 mmol/L (22-30); Chloride 103 mmol/L (98-107); Glucose 158 mg/dL (74-99); Non-African American GFR(CKD) 83 (>60 ml/min/1.73 sqM); Salicylate 21.9 mg/dL; Sodium 135 mmol/L (137-145); Total Bilirubin 0.2 mg/dL (0.2-1.3); Total Protein 6.6 g/dL (6.3-8.2)
[2024-10-16 23:55] LABS: INR 0.9 (<1.2); Partial Thromboplastin Time 22.1 sec (22.0-30.0); Prothrombin Time 10.1 sec (10.0-12.5)
[2024-10-17 00:16] LABS: Acetaminophen 64.9 ug/mL
[2024-10-17 01:21] LABS: Amphetamine Screen,Urine Not Detected (NotDetected); Barbiturate Screen,Urine Detected (NotDetected); Benzodiazepines Screen,Urine Not Detected (NotDetected); Cocaine Screen,Urine Not Detected (NotDetected); Methadone Screen, Urine Not Detected (NotDetected); Opiate Screen,Urine Not Detected (NotDetected); Oxycodone Screen, Urine Not Detected (NotDetected); Phencyclidine Screen,Urine Not Detected (NotDetected); Tricyclic Antidepressant,Urine Not Detected (NotDetected); Urn Cannabinoid Scrn Not Detected (NotDetected)
[2024-10-17 01:57] LABS: Acetaminophen 39.5 ug/mL
[2024-10-17] MEDS: MECLIZINE 12.5 MG TAB PO STA (02:44)
[2024-10-17 03:42] LABS: Influenza A Not Detected (Not Detectd); Influenza B Not Detected (Not Detectd); RSV Not Detected (Not Detectd)
[2024-10-17] MEDS: SODIUM CHLORIDE 0.9% 1,000 ML IV ONE ×2 (04:46)
[2024-10-17] MEDS ORDERED: OLANZapine 10 MG VIAL IM PRN (05:24)
[2024-10-17] MEDS ORDERED: MAGNESIUM HYDROXIDE 2,400 MG/30 ML CUP PO PRN (05:24)
[2024-10-17] MEDS ORDERED: hydrOXYzine HCL 50 MG/ML 1 ML VIAL IM PRN (05:24)
[2024-10-17] MEDS ORDERED: CYCLOBENZAPRINE 10 MG TAB PO PRN (05:29)
[2024-10-17] MEDS ORDERED: OLANZapine 5 MG TAB PO PRN (06:00)
[2024-10-17 07:25] VITALS: RESP 16
[2024-10-17] MEDS ORDERED: ALBUTEROL INHALER 60 PUFF/8 GM INHALER (MHU) INHALATION PRN (08:00)
[2024-10-17] MEDS: METOPROLOL SUCCINATE (ER) 50 MG TAB.ER.24H PO SCH (08:17)
[2024-10-17] MEDS ORDERED: AZELASTINE 137MCG/SPRAY EA NOSTRIL PRN (09:00)
[2024-10-17] MEDS: hydrOXYzine HCL 25 MG TAB PO PRN (12:59)
[2024-10-17 13:35] LABS: Appearance,Urine Clear (Clear); Bilirubin,Urine Negative (Negative); Blood,Urine Negative (Negative); Color,Urine Colorless; Glucose,Urine (UA) Trace (Negative); Ketones,Urine Negative (Negative); Leukocyte Esterase,Urine Negative (Negative); Nitrite,Urine Negative (Negative); Protein,Urine Negative (Negative); Specific Gravity,Urine 1.023 (1.001-1.035); Urobilinogen,Urine <2.0 mg/dL (<2.0)
--- NOTE | 2024-10-17 14:15 | P.HP ---
Psychiatric H&P - . H&P Date: 10/17/24 History & Physical: Allergies Allergy/AdvReac Type Severity Reaction Status Date / Time ofloxacin from Floxin AdvReac Unknown Hallucinati Verified 10/16/24 22:29 ons SAI Inhibitors AdvReac ANGIOEDEMA Verified 10/16/24 22:29 bupropion from Wellbutrin AdvReac seizure Verified 10/16/24 22:29 venlafaxine from Effexor AdvReac seizure Verified 10/16/24 22:29 Vital Signs Temp 98.0 F 10/17/24 06:44 Pulse 76 10/17/24 08:19 Resp 16 10/17/24 06:44 BP 151/90 10/17/24 08:19 Pulse Ox 98 10/17/24 06:44 FiO2 Intake & Output 10/16/24 10/17/24 10/17/24 18:59 06:59 18:59 Weight 115.666 kg Laboratory Last Values WBC 11.3 k/uL (3.8-10.6) H 10/16/24 23:18 RBC 4.30 m/uL (3.80-5.40) 10/16/24 23:18 Hgb 10.9 gm/dL (11.4-16.0) L 10/16/24 23:18 Hct 34.1 % (34.0-46.0) 10/16/24 23:18 MCV 79.2 fL (80.0-100.0) L 10/16/24 23:18 MCH 25.3 pg (25.0-35.0) 10/16/24 23:18 MCHC 31.9 g/dL (31.0-37.0) 10/16/24 23:18 RDW 17.3 % (11.5-15.5) H 10/16/24 23:18 Plt Count 304 k/uL (150-450) 10/16/24 23:18 MPV 8.3 10/16/24 23:18 Neutrophils % 50 % 10/16/24 23:18 Lymphocytes % 40 % 10/16/24 23:18 Monocytes % 4 % 10/16/24 23:18 Eosinophils % 2 % 10/16/24 23:18 Basophils % 0 % 10/16/24 23:18 Neutrophils # 5.7 k/uL (1.3-7.7) 10/16/24 23:18 Lymphocytes # 4.6 k/uL (1.0-4.8) 10/16/24 23:18 Monocytes # 0.5 k/uL (0-1.0) 10/16/24 23:18 Eosinophils # 0.3 k/uL (0-0.7) 10/16/24 23:18 Basophils # 0.0 k/uL (0-0.2) 10/16/24 23:18 Hypochromasia Slight 10/16/24 23:18 Anisocytosis Slight 10/16/24 23:18 Microcytosis Slight 10/16/24 23:18 PT 10.1 sec (10.0-12.5) 10/16/24 23:18 INR 0.9 (<1.2) 10/16/24 23:18 APTT 22.1 sec (22.0-30.0) 10/16/24 23:18 VBG pH 7.44 (7.31-7.41) H 10/16/24 23:19 VBG pCO2 34 mmHg (37-51) L 10/16/24 23:19 VBG HCO3 23 mmol/L (24-28) L 10/16/24 23:19 Sodium 135 mmol/L (137-145) L 10/16/24 23:02 Potassium 4.0 mmol/L (3.5-5.1) 10/16/24 23:02 Chloride 103 mmol/L (98-107) 10/16/24 23:02 Carbon Dioxide 20 mmol/L (22-30) L 10/16/24 23:02 Anion Gap 12 mmol/L 10/16/24 23:02 BUN 20 mg/dL (7-17) H 10/16/24 23:02 Creatinine 0.82 mg/dL (0.52-1.04) 10/16/24 23:02 Est GFR (CKD-EPI)AfAm >90 (>60 ml/min/1.73 sqM) 10/16/24 23:02 Est GFR (CKD-EPI)NonAf 83 (>60 ml/min/1.73 sqM) 10/16/24 23:02 Glucose 158 mg/dL (74-99) H 10/16/24 23:02 Lactic Ac Sepsis Rflx Y 10/17/24 04:13 Plasma Lactic Acid Pietro 1.9 mmol/L (0.7-2.0) 10/17/24 06:49 Calcium 9.4 mg/dL (8.4-10.2) 10/16/24 23:02 Total Bilirubin 0.2 mg/dL (0.2-1.3) 10/16/24 23:02 AST 28 U/L (14-36) 10/16/24 23:02 ALT 31 U/L (4-34) 10/16/24 23:02 Alkaline Phosphatase 149 U/L (38-126) H 10/16/24 23:02 Total Protein 6.6 g/dL (6.3-8.2) 10/16/24 23:02 Albumin 4.1 g/dL (3.5-5.0) 10/16/24 23:02 Urine Color Colorless 10/17/24 00:51 Urine Appearance Clear (Clear) 10/17/24 00:51 Urine pH 6.0 (5.0-8.0) 10/17/24 00:51 Ur Specific [place] 1.023 (1.001-1.035) 10/17/24 00:51 Urine Protein Negative (Negative) 10/17/24 00:51 Urine Glucose (UA) Trace (Negative) H 10/17/24 00:51 Urine Ketones Negative (Negative) 10/17/24 00:51 Urine Blood Negative (Negative) 10/17/24 00:51 Urine Nitrite Negative (Negative) 10/17/24 00:51 Urine Bilirubin Negative (Negative) 10/17/24 00:51 Urine Urobilinogen <2.0 mg/dL (<2.0) 10/17/24 00:51 Ur Leukocyte Esterase Negative (Negative) 10/17/24 00:51 Salicylates 23.5 mg/dL 10/17/24 04:51 Urine Opiates Screen Not Detected (NotDetected) 10/17/24 00:51 Ur Oxycodone Screen Not Detected (NotDetected) 10/17/24 00:51 Urine Methadone Screen Not Detected (NotDetected) 10/17/24 00:51 Acetaminophen 39.5 ug/mL 10/17/24 01:05 Ur Barbiturates Screen Detected (NotDetected) H 10/17/24 00:51 U Tricyclic Antidepress Not Detected (NotDetected) 10/17/24 00:51 Ur Phencyclidine Scrn Not Detected (NotDetected) 10/17/24 00:51 Ur Amphetamines Screen Not Detected (NotDetected) 10/17/24 00:51 U Methamphetamines Scrn Not Detected (NotDetected) 10/17/24 00:51 U Benzodiazepines Scrn Not Detected (NotDetected) 10/17/24 00:51 Urine Cocaine Screen Not Detected (NotDetected) 10/17/24 00:51 U Marijuana (THC) Screen Not Detected (NotDetected) 10/17/24 00:51 Serum Alcohol <10 mg/dL 10/16/24 23:02 Acetone, Qual Negative (Negative) 10/17/24 01:05 Influenza Type A (PCR) Not Detected (Not Detectd) 10/16/24 23:00 Influenza Type B (PCR) Not Detected (Not Detectd) 10/16/24 23:00 RSV (PCR) Not Detected (Not Detectd) 10/16/24 23:00 SARS-CoV-2 (PCR) Not Detected (Not Detectd) 10/16/24 23:00 10/17/24 14:03 IDENTIFYING DATA: Patient is a 49-year-old female, currently working as a nurse and living independently CHIEF COMPLAINT: Suicide attempt via OD HPI: Patient presented to the hospital with intentional overdose. EPS note states, "Patient brought self to ER after being referred by mobile crisis. Patient had intentionally overdosed on 50 tabs of tylenol migraine. Prior to suicide attempt pt states she tried to contact her psychiatrist Dr. Jimenez, but the lady at the office was "not helping her get in touch with him". Patient states she last met with Dr. Jimenez via telehealth approx 1 month ago. Patient states it is coming up on the anniversary of the of her step-son. Patient states in 2009, her 15 yr old adrianne was caught drinking and driving (weeks prior to this the minh had enlisted in the [employer]). Per pt the officer who pulled over the minh said that his career in the [employer] was over. Pt found the note and went to the basement to find the sindyon, the minh had committed suicide by self inflicted GSW to head. Patient states she later from her d/t different ways of dealing with the . Pt states they had sold the house and moved and went her 2 younger children turned 17 yrs old pt was worried something similar may happen with them. Patient states the 2 sons are now away at college and she feels "alone". Patient states she does have contact with her sons talking every day or other day. Patient denying SI currently stating "I know what I did was stupid and I just wanted help, if I really wanted to hurt myself I wouldn't have called anyone". Pt denies access to guns/ weapons, denies HI, A/VH, free of delusion thought. Patient concerned with being admitted to unit and missing work, along with calling someone to care for her dog. Patient states she has her sons as support and her mother, but states her mom views "depression as something you just get over". No hx of psych IP, pt states she has always had trouble with sleep but states she works midnights. Pt reports no substance or alcohol use. Multiple comorbidities." Patient seen and evaluated on the unit and was agreeable with speaking to medical underwriter in office. She states "too any Tylenol" which she denies as being a suicide attempt but more so a "cry for help". She expresses feeling depressed for the last 15 years ever since her stepson completed suicide to which she was the one who found him. She states that since then she has her , stating things were difficult after the loss of her stepson and that her 2 sons are away in college which causes her to feel lonely. She is the anniversary of her stepson's passing is coming up on November 12. She states her psychiatrist is away and will not be back until next week and that this was what prompted her to take the Tylenol. She reports feeling useless, low mood, low energy, anhedonia, increase in appetite and poor concentration. Patient denies any suicidal or homicidal ideations intent or plan. At this time patient denies any auditory or visual hallucinations. Patient denies any flight of ideas racing thoughts and increased in goal directed behavior. Patient admits to using no substances PAST PSYCHIATRIC HISTORY: Patient has a history of depression. Patient is currently taking Trintellix 20 mg at bedtime, Ambien 10 mg at bedtime, Abilify 2 mg at bedtime. She reports previously trying Wellbutrin and Effexor however did suffer from a seizure from this in addition to Paxil, Zoloft and Cymbalta. Patient denies any previous psychiatric hospitalizations. Patient sees Dr. Jimenez for outpatient. Patient denies any history of suicide attempts in the past. PMH: as per ER note ALLERGIES: as per EMR SUBSTANCE USE HISTORY: Denies FAMILY PSYCHIATRIC/SUBSTANCE USE HISTORY: Denies SOCIAL HISTORY: Patient was born and raised in [place]. She is an RN at [employer] and has 2 sons who are adults. She is . She expresses support from her dog. MENTAL STATUS EXAM: General Appearance: Patient appears to be stated age is alert, directable, and attempts to cooperate. Patient appears to have fair hygiene and grooming. Behavior: Patient is seated without any agitated behavior. She is intermittently tearful Speech: Patient's speech is fluent and nonpressured. Mood/Affect: Patient reports their mood is depressed, affect is congruent and constricted. Suicidality/Homicidality: Patient denies having any homicidal ideation intent or plan. Denies any suicidal ideations intent or plan Perceptions: Patient denies any visual hallucinations and denies any auditory hallucinations Though content/process: There is no evidence of any delusional thought content and thought process is linear. Memory and concentration: AOX3, grossly intact for the purposes of this session. Can spell "WORLD" backwards Judgment and insight: Poor STRENGTHS/WEAKNESSES: strength is that patient is resilient and has family support. Weakness is that patient has poor judgment and is impulsive INTELLECT: Average IMPRESSIONS: Suicide attempt via OD Major depressive disorder, recurrent, severe Persistent depressive disorder PLAN: -Patient is admitted under voluntary status to MHU for stabilization of psychiatric symptoms and safety. Patient has signed adult voluntary form and medication consent and is placed in patient's chart. -Medications : Start cross tapering Trintellix with Pristiq, decreasing Trintellix to 10 mg at bedtime tonight and starting Pristiq at 50 mg at bedtime for depression, continue Abilify 2 mg at bedtime as an adjunct, Ambien 10 mg at bedtime for insomnia -Zyprexa and hydroxyzine PRN for agitation/aggression -Patient was informed of the risks, benefits and side effects of the medication and patient verbally consented to taking the medications. Patient signed med consent form and was placed in chart. -Internal Medicine consult to perform medical evaluation and physical. -NRT -not needed as patient does not smoke -SW on board for discharge planning. Encourage patient to participate in groups to work on coping skills.
[2024-10-17] MEDS: IBUPROFEN 600 MG TAB PO PRN (14:16)
[2024-10-17] MEDS ORDERED: VORTIOXETINE HYDROBROMIDE 20 MG TABLET PO SCH (21:00)
[2024-10-17] MEDS ORDERED: DULoxetine HCL 60 MG CAPSULE.DR PO SCH (21:00)
--- NOTE | 2024-10-17 21:06 | P.MDCNMH ---
History of Present Illness H&P Date: 10/17/24 Patient is a 49-year-old female with history of hypertension, migraine headaches, chronic pain, and history of ESBL UTIs who has been admitted to mental health unit for suicide attempt via overdose. Sound physicians have been consulted for medical management. The patient currently denies any fevers, chills, chest pain, shortness of breath, abdominal pain, nausea, vomiting, urinary or bowel complaints. LABS on admission reflected mixed with base disturbance. Hyperglycemia. Lactic acid was initially elevated but has since normalized. Serum levels of acetaminophen were initially elevated, but have since normalized. UA was unremarkable. UDS was positive for barbiturates. Cepheid was negative. Pertinent positives and negatives as discussed in HPI, a complete review of systems was performed and all other systems are negative. Patient seen and examined at bedside. Physical examination: Vital signs reviewed General: nontoxic, no distress, appears at stated age Derm: warm, dry, intact Head: atraumatic, normocephalic, symmetric Eyes: anicteric sclera Mouth: no lip lesion, mucus membranes moist Cardiovascular: S1 S2 reg, no murmur Lungs: CTA bilateral, no rhonchi, no rales, no accessory muscle use Abdominal: soft, non-tender to palpation, nondistended Extremities: No cyanosis, clubbing, or pedal edema. Neuro: Alert, Oriented to person, time and place, Gross neurological examination did not reveal any focal deficits. Cranial nerves II to XII grossly intact. Bilateral upper and lower extremity muscle strength intact and sensation intact. Psych: well appearing, appropriate affect Assessment/Plan: Chronic Conditions: Hypertension Resumed amlodipine 5 mg p.o. at bedtime Resumed hydrochlorothiazide 25 mg p.o. at bedtime Resume metoprolol 150 mg twice daily Chronic pain Continue Motrin 600 mg every 6 hours as needed History of ESBL UTIs Patient does not currently endorse any dysuria or frequency or urgency Continue to monitor for UTI symptoms and initiate antibiotics if necessary Suicide attempt via OD Major depressive disorder, recurrent, severe Persistent depressive disorder Management per psychiatry. Thank you for this consultation. We will continue to follow. Past Medical History Past Medical History: Asthma, GERD/Reflux, Hypertension, Osteoarthritis (OA), Pneumonia, Renal Disease, Seizure Disorder Additional Past Medical History / Comment(s): kidney stones/septic stone, environmental allergies, pneumonia aug 2021 post-op, herniated discs, occasional tachycardia, ileus History of Any Multi-Drug Resistant Organisms: ESBL Date of last positivie culture/infection: 01/17/24 MDRO Source:: urine and blood Past Surgical History: Adenoidectomy, Bariatric Surgery, Section, Cho lecystectomy, Hysterectomy, Joint Replacement, Orthopedic Surgery, Tonsillectomy Additional Past Surgical History / Comment(s): 08/09/23 cystoscopy with L lithotripsy/L stent removed, left knee replacement, arthroscopy right knee, lap band 16 yrs ago- no fluid in band per pt. surgery at [facility]), 03/23/22 trigger finger, KIDNEY STONE SX, gastric sleeve 10/11, ankle cyst removed as child, samaria ureter stents Past Anesthesia/Blood Transfusion Reactions: Postoperative Nausea & Vomiting (PONV) Additional Past Anesthesia/Blood Transfusion Reaction / Comment(s): grandmother- difficulty waking up, slight fever one time but not ever told it was malignant hyperthermia Past Psychological History: Depression, PTSD Smoking Status: Never smoker Past Alcohol Use History: None Reported Past Drug Use History: None Reported - Past Family History Mother Family Medical History: Cancer, Hypertension Medications and Allergies Home Medications Medication Instructions Recorded Confirmed Type Metoprolol Succinate (ER) [Toprol 150 mg PO BID 05/07/18 07/31/24 History XL] Pregabalin [Lyrica] 150 mg PO TID 04/21/20 07/31/24 History Vortioxetine Hydrobromide 20 mg PO HS 04/21/20 07/31/24 History [Trintellix] Zolpidem [Ambien] 10 mg PO HS 04/21/20 07/31/24 History ARIPiprazole [Abilify] 2 mg PO HS 03/10/21 07/31/24 History amLODIPine [Norvasc] 5 mg PO HS 03/10/21 07/31/24 History Cyclobenzaprine [Flexeril] 10 mg PO BID PRN 07/09/23 07/31/24 History DULoxetine HCL [Cymbalta] 60 mg PO HS 07/09/23 07/31/24 History cloNIDine HCL [Catapres] 0.1 mg PO HS 07/09/23 07/31/24 History Albuterol Inhaler [Ventolin Hfa 1 - 2 puff INHALATION RT-Q6H PRN 02/11/24 07/31/24 History Inhaler] Butalb/APAP/Caff 50-325-40Mg 1 tab PO Q6H PRN 06/07/24 07/31/24 History [Fioricet 50-325-40] Metoclopramide [Reglan] 10 mg PO Q6H PRN #30 tab 06/07/24 07/31/24 Rx Ondansetron Odt [Zofran ODT] 4 mg PO Q8HR PRN #30 tab 06/07/24 07/31/24 Rx Rizatriptan Benzoate [Rizatriptan] 10 mg PO BID PRN MDD 20 mg 06/07/24 07/31/24 History hydroCHLOROthiazide [Hydrodiuril] 25 mg PO HS 06/07/24 07/31/24 History Azelastine HCl [Astelin Nasal 2 spr EA NOSTRIL BID 07/31/24 07/31/24 History [place]] Ketorolac [Toradol] 10 mg PO Q8H PRN 07/31/24 07/31/24 History Nitrofurantoin Monohyd/M-Cryst 100 mg PO Q12HR #14 cap 08/02/24 Rx [Macrobid] methylPREDNISolone Dose Pack 4 mg PO DIRECTED #21 tab 09/14/24 Rx [Medrol Dose Pack] Allergies Allergy/AdvReac Type Severity Reaction Status Date / Time ofloxacin [From Floxin] AdvReac Unknown Hallucinati Verified 10/16/24 22:29 ons SAI Inhibitors AdvReac ANGIOEDEMA Verified 10/16/24 22:29 bupropion [From Wellbutrin] AdvReac seizure Verified 10/16/24 22:29 venlafaxine [From Effexor] AdvReac seizure Verified 10/16/24 22:29 Physical Exam Vitals: Vital Signs Temp Pulse Pulse Pulse Resp BP BP 10/17/24 08:19 76 151/90 10/17/24 06:44 98.0 F 69 16 10/17/24 06:37 98.2 F 61 18 116/61 10/17/24 03:07 97.8 F 62 17 111/55 10/17/24 02:00 59 L 18 105/60 10/17/24 01:05 68 17 113/67 10/17/24 00:07 72 17 110/50 01/29/25 22:26 97.5 F L 71 18 149/88 BP Pulse Ox 10/17/24 08:19 10/17/24 06:44 123/59 98 10/17/24 06:37 97 10/17/24 03:07 97 10/17/24 02:00 97 10/17/24 01:05 98 10/17/24 00:07 97 10/16/24 22:26 99 Intake and Output 10/17/24 10/17/24 10/17/24 06:59 14:59 22:59 Other: Weight 115.666 kg Results CBC & Chem 7: 10/16/24 23:18 10/16/24 23:02 Labs: Abnormal Lab Results - Last 24 Hours (Table) 10/16/24 10/16/24 10/16/24 Range/Units 23:02 23:18 23:18 WBC 11.3 H (3.8-10.6) k/uL Hgb 10.9 L (11.4-16.0) gm/dL MCV 79.2 L (80.0-100.0) fL RDW 17.3 H (11.5-15.5) % VBG pH (7.31-7.41) VBG pCO2 (37-51) mmHg VBG HCO3 (24-28) mmol/L Sodium 135 L (137-145) mmol/L Carbon Dioxide 20 L (22-30) mmol/L BUN 20 H (7-17) mg/dL Glucose 158 H (74-99) mg/dL Plasma Lactic Acid Pietro 3.2 H* (0.7-2.0) mmol/L Alkaline Phosphatase 149 H (38-126) U/L Urine Glucose (UA) (Negative) Acetaminophen 64.9 H* ug/mL Ur Barbiturates Screen (NotDetected) 10/16/24 10/17/24 10/17/24 Range/Units 23:19 00:51 00:51 WBC (3.8-10.6) k/uL Hgb (11.4-16.0) gm/dL MCV (80.0-100.0) fL RDW (11.5-15.5) % VBG pH 7.44 H (7.31-7.41) VBG pCO2 34 L (37-51) mmHg VBG HCO3 23 L (24-28) mmol/L Sodium (137-145) mmol/L Carbon Dioxide (22-30) mmol/L BUN (7-17) mg/dL Glucose (74-99) mg/dL Plasma Lactic Acid [place] (0.7-2.0) mmol/L Alkaline Phosphatase (38-126) U/L Urine Glucose (UA) Trace H (Negative) Acetaminophen ug/mL Ur Barbiturates Screen Detected H (NotDetected) 10/17/24 Range/Units 02:59 WBC (3.8-10.6) k/uL Hgb (11.4-16.0) gm/dL MCV (80.0-100.0) fL RDW (11.5-15.5) % VBG pH (7.31-7.41) VBG pCO2 (37-51) mmHg VBG HCO3 (24-28) mmol/L Sodium (137-145) mmol/L Carbon Dioxide (22-30) mmol/L BUN (7-17) mg/dL Glucose (74-99) mg/dL Plasma Lactic Acid [place] 3.6 H* (0.7-2.0) mmol/L Alkaline Phosphatase (38-126) U/L Urine Glucose (UA) (Negative) Acetaminophen ug/mL Ur Barbiturates Screen (NotDetected)
[2024-10-17] MEDS: PREGABALIN 75 MG CAP PO SCH (22:08)
[2024-10-17] MEDS: ZOLPIDEM 5 MG TAB PO SCH (22:08)
[2024-10-17] MEDS: cloNIDine HCL 0.1 MG TAB PO SCH (22:08)
[2024-10-17] MEDS: ARIPiprazole 2 MG TAB PO SCH (22:08)
[2024-10-17] MEDS: hydroCHLOROthiazide 25 MG TAB PO SCH (22:08)
[2024-10-17] MEDS: DESVENLAFAXINE SUCCINATE 50 MG TAB.ER.24H PO SCH (22:08)
[2024-10-17] MEDS: amLODIPine 5 MG TAB PO SCH (22:08)
[2024-10-17] MEDS: VORTIOXETINE HYDROBROMIDE 20 MG TABLET PO SCH (22:09)
[2024-10-18 08:15] LABS: ALT 28 U/L (4-34); AST 25 U/L (14-36); Albumin 3.8 g/dL (3.5-5.0); Alkaline Phosphatase 124 U/L (38-126); Bilirubin, Delta 0.2 mg/dL (0.0-0.2); Bilirubin,Unconjugated 0.3 mg/dL (0.0-1.1); Total Bilirubin 0.5 mg/dL (0.2-1.3); Total Protein 6.2 g/dL (6.3-8.2)
[2024-10-18] MEDS: ONDANSETRON ODT 4 MG TAB PO PRN (08:35)
[2024-10-18] MEDS ORDERED: LOPERAMIDE 2 MG CAP PO PRN (10:02)
--- NOTE | 2024-10-18 12:22 | P.PN ---
Progress Note - Text Progress Note Date: 10/18/24 Interval History: Patient was seen in bed and was directable and agreeable to speak with caption writer in the office. Patient has been largely isolative in her room and was encouraged to attend groups. She states sleeping better last night but does report several side effects including nausea, headache and loose stools. She expresses nausea being more chronic related to her gastric sleeve and that she feels as though the headache is due to the paint that is being done on the unit. She denied any worsening in her depression with the cross taper, no discontinuation symptoms. She expresses how she was able to talk to her family yesterday and let them know that she was in the hospital which was difficult however she does feel relieved. At this time patient denies any suicidal or homicidal ideations, intent or plan. Patient denies any auditory, visual hallucinations and denies any paranoia or delusions. Patient denies any side effects from the medications and has been compliant with meds. Mental Status Exam: General Appearance: Patient appears to be stated age is alert, directable, and cooperative. Behavior: Patient is calmly seated without any agitated behavior. She is less tearful today Speech: Patient's speech is fluent and nonpressured. Mood/Affect: Mood is improving mildly, affect is congruent and constricted. Suicidality/Homicidality: Patient denies having any suicidal or homicidal ideation intent or plan. Perceptions: Patient denies any visual hallucinations and denies any auditory hallucinations Though content/process: There is no evidence of any delusional thought content and thought process is linear. Memory and concentration: AOX3, grossly intact for the purposes of this session Judgment and insight: Improving mildly Assessment Suicide attempt via OD Major depressive disorder, recurrent, severe Persistent depressive disorder Plan: -Patient continues to meet criteria for inpatient psychiatric admission for symptom stabilization and safety. Patient has signed adult voluntary form and medication consent and was placed in patient's chart. -Medications: Continue Trintellix 10 mg at bedtime, Pristiq 50 mg at bedtime for depression, will continue the cross taper pending resolution and adverse effects. Continue Abilify 2 mg at bedtime as an adjunct, Ambien 10 mg at bedtime for insomnia -When necessary Zyprexa and hydroxyzine for agitation/aggression. -Labs: Reviewed -SW on board for discharge planning. Encouraged the patient to participate in milieu. Anticipate discharge back home on Monday
[2024-10-18] MEDS: MAG HYDROX/AL HYDROX/SIMETH 355 ML BOTTLE PO PRN (14:26)
[2024-10-18 15:21] LABS: LDL Cholesterol,Calculated 136.3 mg/dL (0.0-131.0)
[2024-10-19] MEDS: PANTOPRAZOLE 40 MG TABLET PO SCH (00:50)
--- NOTE | 2024-10-19 10:05 | P.PN ---
Progress Note - Text Progress Note Date: 10/19/24 Dictation was produced using [employer] dictation software. Please excuse any grammatical, word or spelling errors. Interval history: Patient was in her room and was directable and agreeable to speak with the commercial underwriter in the office for psychiatric follow-up. She states that she lost her son in 2009 to suicide, since then she has been dealing with depression. She states that his anniversary is coming up and she was overwhelmed, she overdosed on Tylenol, she reported that she called for help right away. She states that she lives by herself and recently got a dog, reported that her 2 boys left to college, and reported that her parents does not believe in mental health and told her that depression would go away by itself. She was able to reflect back on her suicide attempt and reported that "I was looking for help, did not want to ," reported that she could not reach out to her psychiatrist since they was out of town, she states that she think "it is a mistake, never do again," "I don't know what i was thinking." She admitted to moderate depression and anxiety, reported that depression is getting better which she rated at 3 per 10 compared to 8 per 10 on admission. She reported anxiety mainly due to being in the unit since it is a new place which she rated at 2 per 10. She denied any current SI/HI or AVH. denied any past suicidal history. Reported that sleep is not great, kept waking up, reported that she has been taking Ambien for 15 yrs. Reported that her appetite is coming back. She is compliant with her medication, she denied any side effects, reported that diarrhea is better, reported that she always has nausea since she did the gastric sleeve. She denies any Auditory or visual hallucinations. She reported that she gets along well with everyone in the unit, denied any safety concern. 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 Mental status exam: General Appearance: Patient appears to be stated age is alert, directable, and cooperative. Behavior: No agitated behavior. Patient is calm and directable Speech: Patient's speech is fluent and nonpressured. Mood/Affect: Mood is improving mildly, affect is congruent and constricted. Suicidality/Homicidality: Patient denies having any suicidal or homicidal ideation intent or plan. Perceptions: Patient denies any auditory or visual hallucinations. Though content/process: There is no evidence of any delusional thought content and thought process is linear and goal-directed. Memory and concentration: AOX3, grossly intact for the purposes of this session Judgment and insight: improving mildly Impression: Suicide attempt via OD Major depressive disorder, recurrent, severe Persistent depressive disorder Assessment/Plan: Continue with current diagnosis. Patient continues to meet criteria for inpatient psychiatric admission for symptom stabilization and safety. Patient will be maintained on current psychotropic medication regimen, continue cross titration between Trintellix and Pristiq continue Abilify 2 mg at bedtime, Ambien 10 mg at bedtime. Monitor for medication compliance and for any psychotropic medication side effects. Will continue to monitor ongoing response to treatment. Encouraged participation in milieu.
[2024-10-20] MEDS: CALCIUM CARBONATE 500 MG CHEWABLE PO PRN (01:09)
--- NOTE | 2024-10-20 09:09 | P.PN ---
Progress Note - Text Progress Note Date: 10/20/24 Dictation was produced using [employer] dictation software. Please excuse any grammatical, word or spelling errors. Interval history: Patient was seen in her room and was directable and agreeable to speak with the functional tester typewriters in the office for psychiatric follow-up. The pt states that she is feeling a bit tired today, reported that she did not sleep well last night, reported that the hospital bed is not comfortable, and it was hard for her to fall a sleep. She reported depression and anxiety to be at the low to moderate side, she rated both at 3/10. She denied any current suicidal, self-harm or homicidal thoughts or behavior, denied any auditory or visual hallucination. She reported that her appetite is good giving her post sleeve status, reported that she vomited twice yesterday after eating however reported that she usually happen at home and she was able to get some Zofran which was helpful. She spoke with her mother yesterday, reported that her mother does not believe in depression and is not supportive, reported that she was arguing with her about being in the hospital, reported that she spoke with her 2 sons who are very supportive and worried about her. She reported that she used to see a therapist over the phone every few months and we recommend to see a therapist more often which she agreed to. She is compliant with her medication, denied any side effects, reported that cross titration is working fine and she does not have any discontinuation symptoms. She is tending to her ADL, getting along well with everyone. No issues of aggression or agitation. Mental status exam: General Appearance: Patient appears to be stated age is alert, directable, and cooperative. Behavior: No agitated behavior. Patient is calm and directable Speech: Patient's speech is fluent and nonpressured. Mood/Affect: Mood is improving mildly, affect is congruent and constricted. Suicidality/Homicidality: Patient denies having any suicidal or homicidal ideation intent or plan. Perceptions: Patient denies any auditory or visual hallucinations. Though content/process: There is no evidence of any delusional thought content and thought process is linear and goal-directed. Memory and concentration: AOX3, grossly intact for the purposes of this session Judgment and insight: improving mildly Impression: Suicide attempt via OD Major depressive disorder, recurrent, severe Persistent depressive disorder Assessment/Plan: Continue with current diagnosis. Patient continues to meet criteria for inpatient psychiatric admission for symptom stabilization and safety. Patient will be maintained on current psychotropic medication regimen, continue cross titration between Trintellix and Pristiq, continue Abilify 2 mg at bedtime, Ambien 10 mg at bedtime. Monitor for medication compliance and for any psychotropic medication side effects. Will continue to monitor ongoing response to treatment. Encouraged participation in milieu.
[2024-10-20 19:15] LABS: Influenza A Not Detected (Not Detectd); Influenza B Not Detected (Not Detectd); RSV Not Detected (Not Detectd)
[2024-10-20 20:09] LABS: Appearance,Urine Clear (Clear); Bilirubin,Urine Negative (Negative); Blood,Urine Negative (Negative); Color,Urine Light Yellow; Glucose,Urine (UA) Negative (Negative); Ketones,Urine Negative (Negative); Leukocyte Esterase,Urine Negative (Negative); Nitrite,Urine Negative (Negative); Protein,Urine Trace (Negative); Specific Gravity,Urine 1.019 (1.001-1.035); Urobilinogen,Urine <2.0 mg/dL (<2.0)
[2024-10-21 05:46] VITALS: BP 121/74; PULSE 101; TEMP 98.1
--- NOTE | 2024-10-21 11:58 | P.DS ---
Providers Date of admission: 10/17/24 04:18 Expected date of discharge: 10/21/24 Attending physician: Azul Marie MD Consults: 10/17/24 05:24 Consult Physician Routine Consulting Provider: Tez Sanchez Consult Reason/Comments: H & P Do you want consulting provider notified?: Yes Primary care physician: Rosa Stewart - Discharge Diagnosis(es) (1) Attempted suicide Current Visit: Yes Status: Acute Priority: High (2) Major depressive disorder, recurrent episode, severe Current Visit: Yes Status: Acute Priority: High (3) Persistent depressive disorder Current Visit: Yes Status: Chronic Priority: Low Hospital Course: Admission HPI: Admission note was completed by lyric writer "Patient presented to the hospital with intentional overdose. EPS note states, "Patient brought self to ER after being referred by mobile crisis. Patient had intentionally overdosed on 50 tabs of tylenol migraine. Prior to suicide attempt pt states she tried to contact her psychiatrist Dr. Jimenez, but the lady at the office was "not helping her get in touch with him". Patient states she last met with Dr. Jimenez via telehealth approx 1 month ago. Patient states it is coming up on the anniversary of the of her step-son. Patient states in 2009, her 15 yr old adrianne was caught drinking and driving (weeks prior to this the minh had enlisted in the [employer]). Per pt the officer who pulled over the minh said that his career in the [employer] was over. Pt found the note and went to the basement to find the sindyon, the minh had committed suicide by self inflicted GSW to head. Patient states she later from her d/t different ways of dealing with the . Pt states they had sold the house and moved and went her 2 younger children turned 17 yrs old pt was worried something similar may happen with them. Patient states the 2 sons are now away at college and she feels "alone". Patient states she does have contact with her sons talking every day or other day. Patient denying SI currently stating "I know what I did was stupid and I just wanted help, if I really wanted to hurt myself I wouldn't have called anyone". Pt denies access to guns/ weapons, denies HI, A/VH, free of delusion thought. Patient concerned with being admitted to unit and missing work, along with calling someone to care for her dog. Patient states she has her sons as support and her mother, but states her mom views "depression as something you just get over". No hx of psych IP, pt states she has always had trouble with sleep but states she works midnights. Pt reports no substance or alcohol use. Multiple comorbidities." Patient seen and evaluated on the unit and was agre eable with speaking to lyric writer in office. She states "too any Tylenol" which she denies as being a suicide attempt but more so a "cry for help". She expresses feeling depressed for the last 15 years ever since her stepson completed suicide to which she was the one who found him. She states that since then she has her , stating things were difficult after the loss of her stepson and that her 2 sons are away in college which causes her to feel lonely. She is the anniversary of her stepson's passing is coming up on November 12. She states her psychiatrist is away and will not be back until next week and that this was what prompted her to take the Tylenol. She reports feeling useless, low mood, low energy, anhedonia, increase in appetite and poor concentration. Patient denies any suicidal or homicidal ideations intent or plan. At this time patient denies any auditory or visual hallucinations. Patient denies any flight of ideas racing thoughts and increased in goal d irected behavior. Patient admits to using no substances" Hospital course: Upon admission to the unit patient was directable and agreeable to commence treatment and signed adult voluntary form.. Patient was largely isolative however followed unit protocol. Patient was compliant with the medications and denied any side effects throughout hospital course. Patient was started on a cross tapering given the ineffectiveness of Trintellix with this being decreased to 10 mg at bedtime and Pristiq being started at 50 mg at bedtime for depression. Given patient's history of intolerance with cross titration, this cross tapering will happen slowly to mitigate this, continuing on the outpatient side. Abilify was continued at 2 mg at bedtime as an adjunct, Ambien 10 mg at bedtime for insomnia. Patient spoke of her stressors and engaged in therapy both group and individual. Patient was also seen by medical team for history and physical exam. Throughout the course of the hospitalization patient gradually improved with regards to mood, anxiety, sleep and became more future oriented with improved insight and judgment. On the day of discharge patient denied any suicidal or homicidal ideations intent or plan denied any auditory or visual hallucinations. The patient denied any access to guns or weapons. Patient denied any paranoia and did not endorse any delusions. Patient does not have a significant history of substance abuse and was counseled on abstaining from all substances including alcohol and marijuana. Patient was also counseled on the medications and need for regular compliance and was encouraged to follow- up with their outpatient appointment for mental health and also for primary care. Patient to be discharged back home and will follow-up with her outpatient provider Dr. Jimenez in [place]. Mental status exam: General Appearance: Patient appears to be stated age is alert, pleasant, and cooperative. Patient is in no acute distress and has fair hygiene and grooming Behavior: Patient is calmly seated without any agitated behavior. Speech: Patient's speech is fluent and nonpressured. Mood/Affect: Patient reports their mood is "better", affect is congruent and euthymic. Suicidality/Homicidality: Patient denies having any suicidal or homicidal ideation intent or plan. Perceptions: Patient denies any auditory or visual hallucinations. Though content/process: There is no evidence of any delusional thought content and thought process is linear and goal-directed. More future oriented Memory and concentration: AOX3, grossly intact for the purposes of this session. Can spell "WORLD" backwards correctly. Judgment and insight: Fair Impression: Suicide attempt via OD Major depressive disorder, recurrent, severe Persistent depressive disorder Plan: -Continue with discharge today as patient has improved and stabilized psychiatrically and is not currently an imminent threat to themself and/or others. -Continue medications: Trintellix 10 mg at bedtime, Pristiq 50 mg at bedtime, Abilify 2 mg at bedtime, Ambien 10 mg at bedtime -Patient was counseled on the need for medication compliance and appropriate follow-up at mental health and also primary care for medical issues. Patient verbalized understanding and agreed. -Social work to [help coordinate patients discharge today. also to ensure safe home environment that guns/weapons are either removed from the home or locked away. Social work also to arrange for patients follow up appointments with Dr. Jimenez for psychiatric care along with follow up with primary care provider. -Patient counseled on abstaining from recreational drugs and marijuana and alcohol. Was informed/educated on the adverse effects on their physical and mental health. Patient verbally agreed and understood. -Patient was instructed to return to the hospital or seek immediate medical care if their psychiatric or medical symptoms do worsen or reoccur. Abnormal Labs 10/16/24 10/16/24 10/16/24 23:02 23:18 23:18 WBC 11.3 H Hgb 10.9 L MCV 79.2 L RDW 17.3 H VBG pH VBG pCO2 VBG HCO3 Sodium 135 L Carbon Dioxide 20 L BUN 20 H Glucose 158 H Hemoglobin A1c Plasma Lactic Acid Pietro 3.2 H* Alkaline Phosphatase 149 H Total Protein Triglycerides Cholesterol LDL Cholesterol, Calc VLDL Cholesterol, Calc Urine Protein Urine Glucose (UA) Acetaminophen 64.9 H* Ur Barbiturates Screen 10/16/24 10/17/24 10/17/24 23:19 00:51 00:51 WBC Hgb MCV RDW VBG pH 7.44 H VBG pCO2 34 L VBG HCO3 23 L Sodium Carbon Dioxide BUN Glucose Hemoglobin A1c Plasma Lactic Acid Pietro Alkaline Phosphatase Total Protein Triglycerides Cholesterol LDL Cholesterol, Calc VLDL Cholesterol, Calc Urine Protein Urine Glucose (UA) Trace H Acetaminophen Ur Barbiturates Screen Detected H 10/17/24 10/18/24 10/18/24 02:59 07:02 07:02 WBC Hgb MCV RDW VBG pH VBG pCO2 VBG HCO3 Sodium Carbon Dioxide BUN Glucose Hemoglobin A1c 6.7 H Plasma Lactic Acid Pietro 3.6 H* Alkaline Phosphatase Total Protein 6.2 L Triglycerides 373.00 H Cholesterol 260.00 H LDL Cholesterol, Calc 136.3 H VLDL Cholesterol, Calc 74.60 H Urine Protein Urine Glucose (UA) Acetaminophen Ur Barbiturates Screen 10/20/24 19:30 WBC Hgb MCV RDW VBG pH VBG pCO2 VBG HCO3 Sodium Carbon Dioxide BUN Glucose Hemoglobin A1c Plasma Lactic Acid Pietro Alkaline Phosphatase Total Protein Triglycerides Cholesterol LDL Cholesterol, Calc VLDL Cholesterol, Calc Urine Protein Trace H Urine Glucose (UA) Acetaminophen Ur Barbiturates Screen Vital Signs Temp 98.1 F 10/21/24 05:45 Pulse 101 H 10/21/24 05:45 Resp 16 10/21/24 05:45 BP 121/74 10/21/24 05:45 Pulse Ox 99 10/21/24 05:45 FiO2 Intake & Output 10/20/24 10/21/24 10/21/24 18:59 06:59 18:59 Weight 109.8 kg Allergies Allergy/AdvReac Type Severity Reaction Status Date / Time ofloxacin [From Floxin] AdvReac Unknown Hallucinati Verified 10/16/24 22:29 ons SAI Inhibitors AdvReac ANGIOEDEMA Verified 10/16/24 22:29 bupropion [From Wellbutrin] AdvReac seizure Verified 10/16/24 22:29 venlafaxine [From Effexor] AdvReac seizure Verified 10/16/24 22:29 Patient Condition at Discharge: Stable Plan - Discharge Summary Discharge Rx Participant: No New Discharge Prescriptions: New Pantoprazole [Protonix] 40 mg PO AC-BRKFST tab Vortioxetine Hydrobromide [Trintellix] 10 mg PO HS tab Desvenlafaxine Succinate [Pristiq ER] 50 mg PO HS 30 Days #30 tab Continue Metoprolol Succinate (ER) [Toprol XL] 150 mg PO BID Zolpidem [Ambien] 10 mg PO HS Pregabalin [Lyrica] 150 mg PO TID ARIPiprazole [Abilify] 2 mg PO HS amLODIPine [Norvasc] 5 mg PO HS cloNIDine HCL [Catapres] 0.1 mg PO HS hydroCHLOROthiazide [Hydrodiuril] 25 mg PO HS Discontinued Vortioxetine Hydrobromide [Trintellix] 20 mg PO HS Rizatriptan Benzoate [Rizatriptan] 10 mg PO BID PRN MDD 20 mg PRN Reason: Migraine Headache Metoclopramide [Reglan] 10 mg PO Q6H PRN #30 tab PRN Reason: Nausea And Vomiting Ondansetron Odt [Zofran ODT] 4 mg PO Q8HR PRN #30 tab PRN Reason: Nausea And Vomiting Ketorolac [Toradol] 10 mg PO Q8H PRN PRN Reason: Pain Azelastine HCl [Astelin Nasal [place]] 2 spr EA NOSTRIL BID Nitrofurantoin Monohyd/M-Cryst [Macrobid] 100 mg PO Q12HR #14 cap methylPREDNISolone Dose Pack [Medrol Dose Pack] 4 mg PO DIRECTED #21 tab DULoxetine HCL [Cymbalta] 60 mg PO HS Cyclobenzaprine [Flexeril] 10 mg PO BID PRN PRN Reason: Muscle Spasm Albuterol Inhaler [Ventolin Hfa Inhaler] 1 - 2 puff INHALATION RT-Q6H PRN PRN Reason: Shortness Of Breath Butalb/APAP/Caff 50-325-40Mg [Fioricet 50-325-40] 1 tab PO Q6H PRN PRN Reason: Migraine Headache Discharge Medication List Metoprolol Succinate (ER) [Toprol XL] 150 mg PO BID 05/07/18 [History] Pregabalin [Lyrica] 150 mg PO TID 04/21/20 [History] Zolpidem [Ambien] 10 mg PO HS 04/21/20 [History] ARIPiprazole [Abilify] 2 mg PO HS 03/10/21 [History] amLODIPine [Norvasc] 5 mg PO HS 03/10/21 [History] cloNIDine HCL [Catapres] 0.1 mg PO HS 07/09/23 [History] hydroCHLOROthiazide [Hydrodiuril] 25 mg PO HS 06/07/24 [History] Desvenlafaxine Succinate [Pristiq ER] 50 mg PO HS 30 Days #30 tab 10/21/24 [Rx] Pantoprazole [Protonix] 40 mg PO AC-BRKFST tab 10/21/24 [Rx] Vortioxetine Hydrobromide [Trintellix] 10 mg PO HS tab 10/21/24 [Rx] Follow up Appointment(s)/Referral(s): Dr Tony [Other] - 10/23/24 12:45 pm (10/23 @ 12:45 ) Rosa Stewart MD [Primary Care Provider] - 1-2 days Activity/Diet/Wound Care/Special Instructions: [facility] Discharge Info Avoid the use of street drugs and alcohol. Take all medications as prescribed. When you are in need of refills on your medications, please contact your outpatient medical provider and/or outpatient psychiatrist. Please go to your scheduled outpatient appointments for aftercare treatment. If symptoms return or become worse, call the crisis line at or and/or visit the nearest emergency room for assistance. National Suicide and Crisis Lifeline - call or text 988 Discharge Disposition: HOME SELF-CARE
== END 2024-10-21 12:04 | disposition home or self-care (01) | DRG 885 ==
LOC: EC 22:24 → 3MHU 10-17 04:18
PROVIDERS: ADMIT Psychiatry & Neurology Psychiatry; ATTEND Psychiatry & Neurology Psychiatry
DX: F33.2 Major depressive disorder, recurrent severe without psychotic features (principal); F34.1 Dysthymic disorder; I10 Essential (primary) hypertension; J45.909 Unspecified asthma, uncomplicated; T39.1X2A Poisoning by 4-Aminophenol derivatives, intentional self-harm, initial encounter; F43.10 Post-traumatic stress disorder, unspecified; F41.9 Anxiety disorder, unspecified; G43.909 Migraine, unspecified, not intractable, without status migrainosus; G47.00 Insomnia, unspecified; G89.29 Other chronic pain; K21.9 Gastro-esophageal reflux disease without esophagitis; M19.90 Unspecified osteoarthritis, unspecified site; R73.9 Hyperglycemia, unspecified; Z96.652 Presence of left artificial knee joint; Z79.899 Other long term (current) drug therapy; Z63.5 Disruption of family by separation and divorce; Z88.8 Allergy status to other drugs, medicaments and biological substances
CPT/HCPCS: 36415; 80053; 80061; 80076; 80143; 80179; 80306; 80320; 81003; 82009; 82075; 82803; 83036; 83605; 84443; 85025; 85610; 85730; 87636; 93005; 96360; 96361; 99285

== ENCOUNTER → 2025-01-08 | Outpatient (CLI) | payer MEDICAID ==
--- NOTE | 2025-01-08 12:52 | US ---
EXAMINATION TYPE: US mass soft tissue chest/back DATE OF EXAM: 01/08/2025 COMPARISON: NONE CLINICAL INDICATION: Female, 49 years old with history of R22.31 LOCALIZED SWELLING, MASS AND LUMP, R IGHT UP; Lump x 2 weeks in the right clavicle area. Painful to touch. TECHNIQUE: Scanned right clavicle area at patient's area of concern. FINDINGS: No abnormalities seen by ultrasound. IMPRESSION: 1. No discrete abnormality or correlate with the palpable region [facility], Workstation: [facility], 01/08/2025 12:50 PM
== END | disposition home or self-care (01) ==
LOC: RADUSWWP 12:20
PROVIDERS: ATTEND Family Medicine
DX: R22.31 Localized swelling, mass and lump, right upper limb (principal)

== ENCOUNTER 2025-03-03 06:17 | Emergency (ER) | payer MEDICAID ==
[2025-03-03 06:21] VITALS: RESP 18
--- NOTE | 2025-03-03 06:35 | ED ---
Arrhythmia/Palpitations HPI - General Chief Complaint: Recheck/Abnormal Lab/Rx Stated Complaint: Heart Palpitations, Dizziness, Fatigue Time Seen by Provider: 03/03/25 06:22 Source: patient, RN notes reviewed Mode of arrival: ambulatory Limitations: no limitations - History of Present Illness Initial Comments: This is a 49-year-old female who presents to the emergency department for palpitations. States that when she woke up this morning she was feeling fatigued with palpitations and cramping in her legs. The cramping has since subsided, however she still feels fatigued with palpitations. Denies any chest pain or shortness of breath. She felt fine before going to bed last night. States that the last time this happened her potassium was critically low. This had originally been attributed to the hydrochlorothiazide she was taking to help prevent kidney stones. This was stopped, however she was started on Diamox 6 days ago by her neurologist after an LP revealed elevated ICP and she wonders if that may be causing it. MD Complaint: palpitations - Related Data Home Medications Medication Instructions Recorded Confirmed Metoprolol Succinate (ER) [Toprol 100 mg PO BID 05/07/18 02/13/25 XL] Pregabalin [Lyrica] 150 mg PO HS 04/21/20 02/13/25 Zolpidem [Ambien] 10 mg PO HS 04/21/20 02/13/25 ARIPiprazole [Abilify] 1 mg PO HS 03/10/21 02/13/25 Atogepant [Qulipta] 60 mg PO HS 02/13/25 02/13/25 Butalb/APAP/Caff 50-325-40Mg 1 tab PO Q6H PRN 02/13/25 02/13/25 [Fioricet 50-325-40] Cyclobenzaprine [Flexeril] 10 mg PO BID PRN 02/13/25 02/13/25 Desvenlafaxine [Pristiq ER] 100 mg PO HS 02/13/25 02/13/25 Ondansetron Odt [Zofran ODT] 4 mg PO DAILY PRN 02/13/25 02/13/25 Ubrogepant [Ubrelvy] 100 mg PO DAILY PRN 02/13/25 02/13/25 Previous Rx's Medication Instructions Recorded Cholecalciferol [Vitamin D3 (25 25 mcg PO DAILY #90 tab 02/14/25 Mcg = 1000 Iu)] HYDROcodone/APAP 5-325MG [[place] 1 each PO Q4HR PRN #18 tab 02/14/25 5-325] Potassium Chloride [Potassium 20 meq PO DAILY #10 tab 03/03/25 Chloride ER (K-Dur GEQ)] Allergies Allergy/AdvReac Type Severity Reaction Status Date / Time ofloxacin [From Floxin] AdvReac Unknown Hallucinati Verified 03/03/25 06:21 ons SAI Inhibitors AdvReac ANGIOEDEMA Verified 03/03/25 06:21 bupropion [From Wellbutrin] AdvReac seizure Verified 03/03/25 06:21 venlafaxine [From Effexor] AdvReac seizure Verified 03/03/25 06:21 Review of Systems ROS Statement: Those systems with pertinent positive or pertinent negative responses have been documented in the HPI. ROS Other: All systems not noted in ROS Statement are negative. Past Medical History Past Medical History: GERD/Reflux, Hypertension, Osteoarthritis (OA), Pneumonia, Renal Disease Additional Past Medical History / Comment(s): kidney stones/septic stone, environmental allergies, pneumonia aug 2021 post-op, herniated discs, occasional tachycardia, ileus History of Any Multi-Drug Resistant Organisms: ESBL Date of last positivie culture/infection: 01/17/24 MDRO Source:: urine Past Surgical History: Adenoidectomy, Bariatric Surgery, Section, Cholecystectomy, Hysterectomy, Joint Replacement, Orthopedic Surgery, Tonsill ectomy Additional Past Surgical History / Comment(s): 08/09/23 cystoscopy with L lithotripsy/L stent removed, left knee replacement, arthroscopy right knee, lap band 16 yrs ago- no fluid in band per pt. surgery at [facility]), 03/23/22 trigger finger, KIDNEY STONE SX, gastric sleeve 10/11, ankle cyst removed as child, samaria ureter stents Past Anesthesia/Blood Transfusion Reactions: Postoperative Nausea & Vomiting (PONV) Additional Past Anesthesia/Blood Transfusion Reaction / Comment(s): grandmother- difficulty waking up, slight fever one time but not ever told it was malignant hyperthermia Past Psychological History: Depression Smoking Status: Never smoker Past Alcohol Use History: None Reported Past Drug Use History: None Reported - Past Family History Mother Family Medical History: Cancer, Hypertension General Exam Limitations: no limitations General appearance: alert, in no apparent distress Head exam: Present: atraumatic, normocephalic, normal inspection Respiratory exam: Present: normal lung sounds bilaterally. Absent: respiratory distress, wheezes, rales, rhonchi, stridor Cardiovascular Exam: Present: regular rate, normal rhythm Neurological exam: Present: alert, oriented X3, CN II-XII intact Psychiatric exam: Present: normal affect, normal mood Skin exam: Present: warm, dry, intact, normal color. Absent: rash Course Vital Signs 03/03/25 03/03/25 06:18 06:43 Temperature 98.5 F Pulse Rate 78 Pulse Rate [ 69 Right Sitting Radial] Respiratory 18 Rate Blood Pressure 118/77 O2 Sat by Pulse 98 Oximetry Medical Decision Making - Medical Decision Making This is a 49 year old female who presents to the emergency department for palpitations. Was pt. sent in by a medical professional or institution? @ -No Did you speak to anyone other than the patient for history? @ -No Did you review nursing and triage notes? @ -Yes, and I agree, it is accurate with regards to the patient's symptoms. Were old charts reviewed? @ -No Differential Diagnosis? @ -Differential Palpitations Ventricular arrhythmias, atrial arrhythmias, myocardial infarction, anemia, thyrotoxicosis, electrolyte imbalance, hypokalemia, pulmonary embolism, pulmonary disease, drugs, alcohol, anxiety, stress.... This is not meant to be an all-inclusive list. EKG interpreted by me (3pts min.)? @ -EKG interpreted by me demonstrating the following: Sinus rhythm. Ventricu lar rate 73 bpm, TN interval 168 ms, QRS duration 101 ms, QTc 416 ms. X-rays interpreted by me (1pt min.)? @ -Chest x-ray obtained, my interpretation identifies no localized consolidations or infiltrates. CT interpreted by me (1pt min.)? @ -Not obtained U/S interpreted by me (1pt. min.)? @ -Not obtained What testing was considered but not performed? (CT, X-rays, U/S, labs)? Why? @ -None What meds were considered but not given? Why? @ -None Did you discuss the management of the patient with other professionals? @ -No Did you reconcile home meds? @ -No Was smoking cessation discussed for >3mins.? @ -No Was critical care preformed (if so, how long)? @ -No Were there social determinants of health that impacted care today? How? (Homelessness, low income, unemployed, alcoholism, drug addiction, transportation, low edu. Level, literacy, decrease access to med. care, penitentiary, rehab)? @ -No Was there de-escalation of care discussed even if they declined? (Discuss DNR or withdrawal of care, Hospice)? @ -No What co-morbidities impacted this encounter? (DM, HTN, Smoking, COPD, CAD, Cancer, CVA, Hep., AIDS, mental health diagnosis, sleep apnea, morbid obesity)? @ -GERD, HTN, renal disease, kidney stones Was patient admitted / discharged? @ -Discharged. Lab work demonstrates hypokalemia with a potassium of 2.8 as well as signs of dehydration with a creatinine of 1.2 and eGFR of 52. 1L of IV fluids administered along with 40 mEq of K-Dur and 20 mEq of IVPB potassium chloride. Urinalysis negative for signs of infection. Chest x-ray reveals no acute process. Advised that the Diamox could be depleting her potassium to some extent, even if it is less severe than the hydrochlorothiazide. Advised that she should consider a daily potassium supplement if this becomes a recurrent issue. 10-day supply of potassium chloride prescribed. Advised follow-up with her PCP for reevaluation and repeat laboratory testing to see if she does need to be on this daily and if so determine the correct dosing. Patient discharged home in stable condition. Case discussed with ED attending Dr. Miller. Return precautions reviewed in depth, the patient is instructed to return to the emergency department with any new, worsening, or concerning symptoms. Patient v erbalized understanding. Undiagnosed new problem with uncertain prognosis? @ -None Drug Therapy requiring intensive monitoring for toxicity (Heparin, Nitro, Insu valencia, Cardizem)? @ -None Were any procedures done? @ -None Diagnosis/symptom? @ -Hypokalemia, dehydration, palpitations Acute, or Chronic, or Acute on Chronic? @ -Acute Uncomplicated (without systemic symptoms) or Complicated (systemic symptoms)? @ -Uncomplicated Side effects of treatment? @ -None Exacerbation, Progression, or Severe Exacerbation] @ -Not applicable Poses a threat to life or bodily function? @ -No - Lab Data Result diagrams: 03/03/25 06:33 03/03/25 06:33 Lab Results 03/03/25 03/03/25 03/03/25 Range/Units 06:33 06:33 06:33 WBC 9.96 (4.50-10.00) 10*3/uL RBC 4.68 (4.10-5.20) 10*6/uL Hgb 11.0 L (12.0-15.0) g/dL Hct 34.4 L (37.2-46.3) % MCV 73.5 L (80.0-97.0) fL MCH 23.5 L (27.0-32.0) pg MCHC 32.0 (32.0-37.0) g/dL Plt Count 348 (140-440) 10*3/uL MPV 10.2 (9.5-12.2) fL Immature Gran % (Auto) 0.4 % Neutrophils % 64.0 % Lymphocytes % 24.7 % Monocytes % 8.0 % Eosinophils % 2.3 % Basophils % 0.6 % Immature Gran # 0.04 (0.00-0.04) 10*3/uL Neutrophils # 6.37 (1.80-7.70) 10*3/uL Lymphocytes # 2.46 (0.90-5.00) 10*3/uL Monocytes # 0.80 (0.20-1.00) 10*3/uL Eosinophils # 0.23 (0.04-0.35) 10*3/uL Basophils # 0.06 (0.00-0.10) 10*3/uL Sodium 137 (137-145) mmol/L Potassium 2.8 L (3.5-5.1) mmol/L Chloride 101 (98-107) mmol/L Carbon Dioxide 22 (22-30) mmol/L Anion Gap 14 mmol/L BUN 20 H (7-17) mg/dL Creatinine 1.22 H (0.52-1.04) mg/dL Est GFR (CKD-EPI)AfAm 59 (>60 ml/min/1.73 sqM) Est GFR (CKD-EPI)NonAf 52 (>60 ml/min/1.73 sqM) Glucose 202 H (74-99) mg/dL Calcium 9.6 (8.4-10.2) mg/dL Magnesium 2.1 (1.6-2.3) mg/dL Total Bilirubin 0.4 (0.2-1.3) mg/dL AST 28 (14-36) U/L ALT 27 (4-34) U/L Alkaline Phosphatase 138 H (38-126) U/L Troponin I <0.012 (0.000-0.034) ng/mL Total Protein 7.4 (6.3-8.2) g/dL Albumin 4.7 (3.5-5.0) g/dL Urine Color Urine Appearance (Clear) Urine pH (5.0-8.0) Ur Specific [place] (1.001-1.035) Urine Protein (Negative) Urine Glucose (UA) (Negative) Urine Ketones (Negative) Urine Blood (Negative) Urine Nitrite (Negative) Urine Bilirubin (Negative) Urine Urobilinogen (<2.0) mg/dL Ur Leukocyte Esterase (Negative) 03/03/25 Range/Units 06:59 WBC (4.50-10.00) 10*3/uL RBC (4.10-5.20) 10*6/uL Hgb (12.0-15.0) g/dL Hct (37.2-46.3) % MCV (80.0-97.0) fL MCH (27.0-32.0) pg MCHC (32.0-37.0) g/dL Plt Count (140-440) 10*3/uL MPV (9.5-12.2) fL Immature Gran % (Auto) % Neutrophils % % Lymphocytes % % Monocytes % % Eosinophils % % Basophils % % Immature Gran # (0.00-0.04) 10*3/uL Neutrophils # (1.80-7.70) 10*3/uL Lymphocytes # (0.90-5.00) 10*3/uL Monocytes # (0.20-1.00) 10*3/uL Eosinophils # (0.04-0.35) 10*3/uL Basophils # (0.00-0.10) 10*3/uL Sodium (137-145) mmol/L Potassium (3.5-5.1) mmol/L Chloride (98-107) mmol/L Carbon Dioxide (22-30) mmol/L Anion Gap mmol/L BUN (7-17) mg/dL Creatinine (0.52-1.04) mg/dL Est GFR (CKD-EPI)AfAm (>60 ml/min/1.73 sqM) Est GFR (CKD-EPI)NonAf (>60 ml/min/1.73 sqM) Glucose (74-99) mg/dL Calcium (8.4-10.2) mg/dL Magnesium (1.6-2.3) mg/dL Total Bilirubin (0.2-1.3) mg/dL AST (14-36) U/L ALT (4-34) U/L Alkaline Phosphatase (38-126) U/L Troponin I (0.000-0.034) ng/mL Total Protein (6.3-8.2) g/dL Albumin (3.5-5.0) g/dL Urine Color Colorless Urine Appearance Clear (Clear) Urine pH 7.0 (5.0-8.0) Ur Specific [place] 1.016 (1.001-1.035) Urine Protein Negative (Negative) Urine Glucose (UA) Negative (Negative) Urine Ketones Negative (Negative) Urine Blood Negative (Negative) Urine Nitrite Negative (Negative) Urine Bilirubin Negative (Negative) Urine Urobilinogen <2.0 (<2.0) mg/dL Ur Leukocyte Esterase Negative (Negative) - Radiology Data Radiology results: report reviewed, image reviewed Disposition Clinical Impression: Hypokalemia, Dehydration, Palpitations Disposition: HOME SELF-CARE Instructions (If sedation given, give patient instructions): Hypokalemia (ED) Additional Instructions: Return to the emergency department with any new, worsening, or concerning symptoms. Begin taking the potassium supplements daily. Take your first dose tomorrow since you received it in the emergency department today. Follow-up with your primary care provider in the next couple of days for reevaluation and repeat laboratory testing to see if you are on the correct dose of potassium or if it needs to be adjusted. Prescriptions: Potassium Chloride [Potassium Chloride ER (K-Dur GEQ)] 20 meq PO DAILY #10 tab Is patient prescribed a controlled substance at d/c from ED?: No Referrals: Rosa Stewart MD [Primary Care Provider] - 1-2 days Time of Disposition: 07:39
[2025-03-03 06:42] LABS: Basophils # (A) 0.06 10*3/uL (0.00-0.10); Basophils % (A) 0.6 %; Eosinophils # (A) 0.23 10*3/uL (0.04-0.35); Eosinophils % (A) 2.3 %; HCT 34.4 % (37.2-46.3); Lymphocytes # (A) 2.46 10*3/uL (0.90-5.00); Lymphocytes % (A) 24.7 %; MCH 23.5 pg (27.0-32.0); MCV 73.5 fL (80.0-97.0); Mean Platelet Volume 10.2 fL (9.5-12.2); Neutrophils # (A) 6.37 10*3/uL (1.80-7.70); Platelet Count 348 10*3/uL (140-440); RBC 4.68 10*6/uL (4.10-5.20); RDW 17.2 % (11.5-14.5); WBC 9.96 10*3/uL (4.50-10.00)
[2025-03-03 07:05] LABS: ALT 27 U/L (4-34); AST 28 U/L (14-36); African American GFR (CKD) 59 (>60 ml/min/1.73 sqM); Albumin 4.7 g/dL (3.5-5.0); Alkaline Phosphatase 138 U/L (38-126); Anion Gap 14 mmol/L; Blood Urea Nitrogen 20 mg/dL (7-17); Calcium 9.6 mg/dL (8.4-10.2); Carbon Dioxide 22 mmol/L (22-30); Chloride 101 mmol/L (98-107); Glucose 202 mg/dL (74-99); Magnesium 2.1 mg/dL (1.6-2.3); Non-African American GFR(CKD) 52 (>60 ml/min/1.73 sqM); Potassium 2.8 mmol/L (3.5-5.1); Sodium 137 mmol/L (137-145); Total Bilirubin 0.4 mg/dL (0.2-1.3); Total Protein 7.4 g/dL (6.3-8.2)
[2025-03-03 07:18] LABS: Appearance,Urine Clear (Clear); Bilirubin,Urine Negative (Negative); Blood,Urine Negative (Negative); Color,Urine Colorless; Glucose,Urine (UA) Negative (Negative); Ketones,Urine Negative (Negative); Leukocyte Esterase,Urine Negative (Negative); Nitrite,Urine Negative (Negative); Protein,Urine Negative (Negative); Specific Gravity,Urine 1.016 (1.001-1.035); Urobilinogen,Urine <2.0 mg/dL (<2.0)
--- NOTE | 2025-03-03 07:27 | XR ---
EXAMINATION TYPE: XR chest 2V DATE OF EXAM: 03/03/2025 6:53 AM COMPARISON: 09/14/2024 CLINICAL INDICATION: Female, 49 years old with history of dysrhythmia, TECHNIQUE: XR chest 2V view(s) obtained. FINDINGS: The heart size is normal. The pulmonary vasculature is normal. The lungs are clear. There is elevation of the right foramen. IMPRESSION: 1. No acute pulmonary process. [facility], , 03/03/2025 7:25 AM
[2025-03-03] MEDS: POTASSIUM CHLORIDE ER 20 MEQ TAB.ER PO STA (07:39)
[2025-03-03] MEDS: POTASSIUM CHLORIDE 20 MEQ in WATER FOR INJECTION 1 100ML.BAG IVPB STA (07:40)
[2025-03-03] MEDS: SODIUM CHLORIDE 0.9% 1,000 ML IV ONE (07:42)
[2025-03-03 09:50] VITALS: BP 116/62; PULSE 68; TEMP 97.8
== END 2025-03-03 09:51 | disposition home or self-care (01) ==
LOC: EC 06:17
DX: E86.0 Dehydration (principal); E87.6 Hypokalemia; R00.2 Palpitations; I10 Essential (primary) hypertension; Z87.442 Personal history of urinary calculi; Z87.448 Personal history of other diseases of urinary system; Z87.19 Personal history of other diseases of the digestive system; Z88.1 Allergy status to other antibiotic agents; Z88.8 Allergy status to other drugs, medicaments and biological substances
CPT/HCPCS: 36415; 93005; 80053; 83735; 84484; 85025; 81003; 71046; 99285; 96365; 96366; J3480

== ENCOUNTER 2025-03-10 14:22 | Emergency (ER) | payer MEDICAID ==
--- NOTE | 2025-03-10 14:43 | ED ---
General Adult HPI - General Source: patient, RN notes reviewed Mode of arrival: ambulatory Limitations: no limitations <Vivi Pedroza - Last Filed: 03/10/25 14:42> - General Source: patient, RN notes reviewed Limitations: no limitations <Alan Marie - Last Filed: 03/10/25 18:43> - General Stated complaint: L flank pain Time Seen by Provider: 03/10/25 14:42 - History of Present Illness Initial comments: Quick note: 49-year-old female presented the ER for evaluation of left flank pain. Patient states she has a known history of kidney stones and this pain feels similar. She states pain wraps around to the left abdomen. She denies any fevers, chills, hematuria or dysuria. Patient admits to nausea without vomiting. Patient follows up with urology, . (Vivi Pedroza) Patient is a 49-year-old female presenting to the emergency department with left flank pain. Onset of symptoms was around noon today. Patient has history of similar discomfort associated with kidney stones. Discomfort is left lateral posterior flank region. No dysuria. No fever. Has nausea without vomiting. (Alan Marie) - Related Data Home Medications Medication Instructions Recorded Confirmed Metoprolol Succinate (ER) [Toprol 100 mg PO BID 05/07/18 02/13/25 XL] Pregabalin [Lyrica] 150 mg PO HS 04/21/20 02/13/25 Zolpidem [Ambien] 10 mg PO HS 04/21/20 02/13/25 ARIPiprazole [Abilify] 1 mg PO HS 03/10/21 02/13/25 Atogepant [Qulipta] 60 mg PO HS 02/13/25 02/13/25 Butalb/APAP/Caff 50-325-40Mg 1 tab PO Q6H PRN 02/13/25 02/13/25 [Fioricet 50-325-40] Cyclobenzaprine [Flexeril] 10 mg PO BID PRN 02/13/25 02/13/25 Desvenlafaxine [Pristiq ER] 100 mg PO HS 02/13/25 02/13/25 Ondansetron Odt [Zofran ODT] 4 mg PO DAILY PRN 02/13/25 02/13/25 Ubrogepant [Ubrelvy] 100 mg PO DAILY PRN 02/13/25 02/13/25 Previous Rx's Medication Instructions Recorded Cholecalciferol [Vitamin D3 (25 25 mcg PO DAILY #90 tab 02/14/25 Mcg = 1000 Iu)] HYDROcodone/APAP 5-325MG [[place] 1 each PO Q4HR PRN #18 tab 02/14/25 5-325] Potassium Chloride [Potassium 20 meq PO DAILY #10 tab 03/03/25 Chloride ER (K-Dur GEQ)] Allergies Allergy/AdvReac Type Severity Reaction Status Date / Time ofloxacin [From Floxin] AdvReac Unknown Hallucinati Verified 03/10/25 14:45 ons SAI Inhibitors AdvReac ANGIOEDEMA Verified 03/10/25 14:45 bupropion [From Wellbutrin] AdvReac seizure Verified 03/10/25 14:45 venlafaxine [From Effexor] AdvReac seizure Verified 03/10/25 14:45 Review of Systems ROS Other: All systems not noted in ROS Statement are negative. <Vivi Pedroza - Last Filed: 03/10/25 14:42> ROS Other: All systems not noted in ROS Statement are negative. Constitutional: Denies: fever Eyes: Denies: eye pain ENT: Denies: ear pain Respiratory: Denies: dyspnea Cardiovascular: Denies: chest pain Gastrointestinal: Reports: as per HPI, nausea. Denies: abdominal pain, vomiting Musculoskeletal: Reports: as per HPI Skin: Denies: lesions <Alan Marie - Last Filed: 03/10/25 18:43> ROS Statement: Those systems with pertinent positive or pertinent negative responses have been documented in the HPI. Past Medical History Past Medical History: GERD/Reflux, Hypertension, Osteoarthritis (OA), Pneumonia, Renal Disease Additional Past Medical History / Comment(s): kidney stones/septic stone, environmental allergies, pneumonia aug 2021 post-op, herniated discs, occasional tachycardia, ileus History of Any Multi-Drug Resistant Organisms: ESBL Date of last positivie culture/infection: 01/17/24 MDRO Source:: urine Past Surgical History: Adenoidectomy, Bariatric Surgery, Section, Cholecystectomy, Hysterectomy, Joint Replacement, Orthopedic Surgery, Tonsillectomy Additional Past Surgical History / Comment(s): 08/09/23 cystoscopy with L lithotripsy/L stent removed, left knee replacement, arthroscopy right knee, lap band 16 yrs ago- no fluid in band per pt. surgery at [facility]), 03/23/22 trigger finger, KIDNEY STONE SX, gastric sleeve 10/11, ankle cyst removed as child, samaria ureter stents Past Anesthesia/Blood Transfusion Reactions: Postoperative Nausea & Vomiting (PONV) Additional Past Anesthesia/Blood Transfusion Reaction / Comment(s): grandmother- difficulty waking up, slight fever one time but not ever told it was malignant hyperthermia Past Psychological History: Depression Smoking Status: Never smoker Past Alcohol Use History: None Reported Past Drug Use History: None Reported - Past Family History Mother Family Medical History: Cancer, Hypertension <Vivi Pedroza - Last Filed: 03/10/25 14:42> General Exam <Vivi Pedroza - Last Filed: 03/10/25 14:42> Limitations: no limitations General appearance: alert, in no apparent distress Head exam: Present: normocephalic Eye exam: Present: normal appearance Neck exam: Present: normal inspection Respiratory exam: Present: normal lung sounds bilaterally Cardiovascular Exam: Present: regular rate, normal rhythm Expanded Peripheral pulses: 2+: Dorsalis Pedis (R), Dorsalis Pedis (L) GI/Abdominal exam: Present: soft. Absent: distended, tenderness Extremities exam: Present: normal inspection. Absent: pedal edema, calf tenderness Back exam: Present: tenderness (Minimal tenderness below left CVA, laterally) Neurological exam: Present: alert. Absent: motor sensory deficit Psychiatric exam: Present: normal affect, normal mood Skin exam: Present: normal color <Alan Marie - Last Filed: 03/10/25 18:43> - General Exam Comments Initial Comments: Visual Physical Exam Vital signs reviewed General: Well-appearing, nontoxic, no acute distress. Head: Normocephalic, atraumatic Eyes: PERRLA, EOMI ENT: Airway patent Chest: Nonlabored breathing Skin: No visual rash, normal skin tone Neuro: Alert and oriented 3 Musculoskeletal: No gross abnormalities (Vivi Pedroza) Course Vital Signs 03/10/25 14:43 Temperature 98.0 F Pulse Rate 86 Respiratory 18 Rate Blood Pressure 116/81 O2 Sat by Pulse 98 Oximetry Medical Decision Making <Vivi Pedroza - Last Filed: 03/10/25 14:42> - Lab Data Result diagrams: 03/10/25 15:58 03/10/25 15:58 <Alan Marie - Last Filed: 03/10/25 18:43> - Medical Decision Making I performed the quick note portion of this chart. Electronically signed by Vivi Pedroza PA-C (Vivi Pedroza) Was pt. sent in by a medical professional or institution ([facility], COMPOSITION WORKER, urgent care, hospital, or alf...) When possible be specific @ -No Did you speak to anyone other than the patient for history (EMS, parent, family, police, friend...)? What history was obtained from this source @ -No Did you review nursing and triage notes (agree or disagree)? Why? @ -I reviewed and agree with nursing and triage notes Were old charts reviewed (outside hosp., previous admission, EMS record, old EKG, old radiological studies, urgent care reports/EKG's, alf records)? Report findings @ -No old charts were reviewed Differential Diagnosis (chest pain, altered mental status, abdominal pain women, abdominal pain men, vaginal bleeding, weakness, fever, dyspnea, syncope, headache, dizziness, GI bleed, back pain, seizure, CVA, palpatations, mental health, musculoskeletal)? @ -Differential Back Pain: Strain, zoster, cauda equina syndrome, epidural abscess, vertebral osteomyelitis, discitis, fracture, subluxation, disc herniation, DJD, spinal stenosis, dissection, AAA, pancreatitis, peptic ulcer disease, pyelonephritis, kidney stone, this is not meant to be an all-inclusive list. EKG interpreted by me (3pts min.). @ -As above X-rays interpreted by me (1pt min.). @ -None done CT interpreted by me (1pt min.). @ -CT scan abdomen pelvis does show small renal calculi. Nonobstructing. Otherwise no acute intercranial abnormality. U/S interpreted by me (1pt. min.). @ -None done What testing was considered but not performed or refused? (CT, X-rays, U/S, labs)? Why? @ -None What meds were considered but not given or refused? Why? @ -None Did you discuss the management of the patient with other professionals (professionals i.e. , PA, COMPOSITION WORKER, lab, RT, psych nurse, social human services assistants, tube repairer, teacher, mortgage loan officer originator, embedded case manager)? Give summary @ -No Was smoking cessation discussed for >3mins.? @ -No Was critical care preformed (if so, how long)? @ -No Were there social determinants of health that impacted care today? How? (Homelessness, low income, unemployed, alcoholism, drug addiction, transportation, low edu. Level, literacy, decrease access to med. care, prison, rehab)? @ -No Was there de-escalation of care discussed even if they declined (Discuss DNR or withdrawal of care, Hospice)? DNR status @ -No What co-morbidities impacted this encounter? (DM, HTN, Smoking, COPD, CAD, Cancer, CVA, ARF, Chemo, Hep., AIDS, mental health diagnosis, sleep apnea, morbid obesity)? @ -None Was patient admitted / discharged? Hospital course, mention meds given and route, prescriptions, significant lab abnormalities, going to OR and other pertinent info. @ -Patient presents with left lower lateral back/flank pain. Evaluation unremarkable. Patient has mild improvement with medication. Patient offered further medication however refuses as she has to drive. Patient states she does have muscle relaxers at home that she can try. Patient is updated on results and need for follow-up Undiagnosed new problem with uncertain prognosis? @ -No Drug Therapy requiring intensive monitoring for toxicity (Heparin, Nitro, Insulin, Cardizem)? @ -No Were any procedures done? @ -No Diagnosis/symptom? @ -Back pain Acute, or Chronic, or Acute on Chronic? @ -Acute Uncomplicated (without systemic symptoms) or Complicated (systemic symptoms)? @ -Default Side effects of treatment? @ -No Exacerbation, Progression, or Severe Exacerbation? @ -No Poses a threat to life or bodily function? How? (Chest pain, [place], [place], pneumonia, PE, COPD, DKA, ARF, appy, cholecystitis, CVA, Diverticulitis, Homicidal, Suicidal, threat to staff... and all critical care pts) @ -No (Alan Marie) - Lab Data Lab Results 03/10/25 03/10/25 03/10/25 Range/Units 15:14 15:58 15:58 WBC 7.17 (4.50-10.00) 10*3/uL RBC 4.20 (4.10-5.20) 10*6/uL Hgb 10.2 L (12.0-15.0) g/dL Hct 32.2 L (37.2-46.3) % MCV 76.7 L (80.0-97.0) fL MCH 24.3 L (27.0-32.0) pg MCHC 31.7 L (32.0-37.0) g/dL Plt Count 306 (140-440) 10*3/uL MPV 11.2 (9.5-12.2) fL Immature Gran % (Auto) 0.4 % Neutrophils % 62.6 % Lymphocytes % 26.2 % Monocytes % 6.8 % Eosinophils % 3.3 % Basophils % 0.7 % Immature Gran # 0.03 (0.00-0.04) 10*3/uL Neutrophils # 4.48 (1.80-7.70) 10*3/uL Lymphocytes # 1.88 (0.90-5.00) 10*3/uL Monocytes # 0.49 (0.20-1.00) 10*3/uL Eosinophils # 0.24 (0.04-0.35) 10*3/uL Basophils # 0.05 (0.00-0.10) 10*3/uL Sodium 142 (137-145) mmol/L Potassium 4.3 (3.5-5.1) mmol/L Chloride 108 H (98-107) mmol/L Carbon Dioxide 22 (22-30) mmol/L Anion Gap 12 mmol/L BUN 19 H (7-17) mg/dL Creatinine 0.93 (0.52-1.04) mg/dL Est GFR (CKD-EPI)AfAm 83 (>60 ml/min/1.73 sqM) Est GFR (CKD-EPI)NonAf 72 (>60 ml/min/1.73 sqM) Glucose 106 H (74-99) mg/dL Lactic Ac Sepsis Rflx Plasma Lactic Acid Pietro (0.7-2.0) mmol/L Calcium 9.9 (8.4-10.2) mg/dL Total Bilirubin 0.5 (0.2-1.3) mg/dL AST 41 H (14-36) U/L ALT 22 (4-34) U/L Alkaline Phosphatase 130 H (38-126) U/L Total Protein 6.8 (6.3-8.2) g/dL Albumin 4.2 (3.5-5.0) g/dL Amylase 57 (30-110) U/L Lipase 217 (23-300) U/L Urine Color Yellow Urine Appearance Cloudy H (Clear) Urine pH 6.5 (5.0-8.0) Ur Specific Carpenter 1.030 (1.001-1.035) Urine Protein 1+ H (Negative) Urine Glucose (UA) Negative (Negative) Urine Ketones Trace H (Negative) Urine Blood Trace H (Negative) Urine Nitrite Negative (Negative) Urine Bilirubin 1+ H (Negative) Urine Urobilinogen 6.0 (<2.0) mg/dL Ur Leukocyte Esterase Small H (Negative) Urine RBC 2 (0-5) /hpf Urine WBC 7 H (0-5) /hpf Ur Squamous Epith Cells 12 H (0-4) /hpf Urine Bacteria Moderate H (None) /hpf Hyaline Casts 20 H (0-2) /lpf Urine Mucus Many H (None) /hpf 03/10/25 03/10/25 Range/Units 15:58 16:38 WBC (4.50-10.00) 10*3/uL RBC (4.10-5.20) 10*6/uL Hgb (12.0-15.0) g/dL Hct (37.2-46.3) % MCV (80.0-97.0) fL MCH (27.0-32.0) pg MCHC (32.0-37.0) g/dL Plt Count (140-440) 10*3/uL MPV (9.5-12.2) fL Immature Gran % (Auto) % Neutrophils % % Lymphocytes % % Monocytes % % Eosinophils % % Basophils % % Immature Gran # (0.00-0.04) 10*3/uL Neutrophils # (1.80-7.70) 10*3/uL Lymphocytes # (0.90-5.00) 10*3/uL Monocytes # (0.20-1.00) 10*3/uL Eosinophils # (0.04-0.35) 10*3/uL Basophils # (0.00-0.10) 10*3/uL Sodium (137-145) mmol/L Potassium (3.5-5.1) mmol/L Chloride (98-107) mmol/L Carbon Dioxide (22-30) mmol/L Anion Gap mmol/L BUN (7-17) mg/dL Creatinine (0.52-1.04) mg/dL Est GFR (CKD-EPI)AfAm (>60 ml/min/1.73 sqM) Est GFR (CKD-EPI)NonAf (>60 ml/min/1.73 sqM) Glucose (74-99) mg/dL Lactic Ac Sepsis Rflx Y Plasma Lactic Acid Pietro 2.6 H* (0.7-2.0) mmol/L Calcium (8.4-10.2) mg/dL Total Bilirubin (0.2-1.3) mg/dL AST (14-36) U/L ALT (4-34) U/L Alkaline Phosphatase (38-126) U/L Total Protein (6.3-8.2) g/dL Albumin (3.5-5.0) g/dL Amylase (30-110) U/L Lipase (23-300) U/L Urine Color Urine Appearance (Clear) Urine pH (5.0-8.0) Ur Specific Carpenter (1.001-1.035) Urine Protein (Negative) Urine Glucose (UA) (Negative) Urine Ketones (Negative) Urine Blood (Negative) Urine Nitrite (Negative) Urine Bilirubin (Negative) Urine Urobilinogen (<2.0) mg/dL Ur Leukocyte Esterase (Negative) Urine RBC (0-5) /hpf Urine WBC (0-5) /hpf Ur Squamous Epith Cells (0-4) /hpf Urine Bacteria (None) /hpf Hyaline Casts (0-2) /lpf Urine Mucus (None) /hpf Disposition <Vivi Pedroza - Last Filed: 03/10/25 14:42> Is patient prescribed a controlled substance at d/c from ED?: No Time of Disposition: 18:43 <Alan Marie - Last Filed: 03/10/25 18:43> Clinical Impression: Back pain Disposition: HOME SELF-CARE Condition: Stable Instructions (If sedation given, give patient instructions): Acute Low Back Pain (ED) Additional Instructions: Please do follow-up with your primary care physician in the next couple of days for recheck. Return for increased pain, fever, vomiting, weakness, worsening or changing symptoms or other concerns. Referrals: Rosa Stewart MD [Primary Care Provider] - 1-2 days
[2025-03-10 15:30] VITALS: TEMP 98
[2025-03-10 15:37] LABS: Appearance,Urine Cloudy (Clear); Bacteria,Urine Moderate /hpf; Bilirubin,Urine 1+ (Negative); Blood,Urine Trace (Negative); Color,Urine Yellow; Glucose,Urine (UA) Negative (Negative); Hyaline Casts,Urine 20 /lpf (0-2); Ketones,Urine Trace (Negative); Leukocyte Esterase,Urine Small (Negative); Mucus,Urine Many /hpf; Nitrite,Urine Negative (Negative); PH, Urine 6.5 (5.0-8.0); Protein,Urine 1+ (Negative); RBC,Urine 2 /hpf (0-5); Squamous Epithelial Cell,Urine 12 /hpf (0-4); WBC,Urine 7 /hpf (0-5)
[2025-03-10 16:14] LABS: Basophils # (A) 0.05 10*3/uL (0.00-0.10); Basophils % (A) 0.7 %; Eosinophils # (A) 0.24 10*3/uL (0.04-0.35); Eosinophils % (A) 3.3 %; HCT 32.2 % (37.2-46.3); HGB 10.2 g/dL (12.0-15.0); Lymphocytes # (A) 1.88 10*3/uL (0.90-5.00); Lymphocytes % (A) 26.2 %; MCH 24.3 pg (27.0-32.0); MCHC 31.7 g/dL (32.0-37.0); MCV 76.7 fL (80.0-97.0); Mean Platelet Volume 11.2 fL (9.5-12.2); Monocytes # (A) 0.49 10*3/uL (0.20-1.00); Monocytes % (A) 6.8 %; Neutrophils # (A) 4.48 10*3/uL (1.80-7.70); Neutrophils % (A) 62.6 %; RDW 17.2 % (11.5-14.5); WBC 7.17 10*3/uL (4.50-10.00)
[2025-03-10 16:24] LABS: ALT 22 U/L (4-34); African American GFR (CKD) 83 (>60 ml/min/1.73 sqM); Amylase 57 U/L (30-110); Anion Gap 12 mmol/L; Blood Urea Nitrogen 19 mg/dL (7-17); Calcium 9.9 mg/dL (8.4-10.2); Carbon Dioxide 22 mmol/L (22-30); Chloride 108 mmol/L (98-107); Glucose 106 mg/dL (74-99); Lipase 217 U/L (23-300); Non-African American GFR(CKD) 72 (>60 ml/min/1.73 sqM); Sodium 142 mmol/L (137-145); Total Bilirubin 0.5 mg/dL (0.2-1.3)
[2025-03-10 16:39] LABS: AST 41 U/L (14-36); Albumin 4.2 g/dL (3.5-5.0); Alkaline Phosphatase 130 U/L (38-126); Potassium 4.3 mmol/L (3.5-5.1); Total Protein 6.8 g/dL (6.3-8.2)
[2025-03-10] MEDS: METOCLOPRAMIDE 5 MG/ML 2 ML VIAL IVP STA (16:43)
[2025-03-10] MEDS: KETOROLAC 15 MG/ML 1 ML VIAL IVP STA (16:43)
[2025-03-10 16:51] LABS: Platelet Count 306 10*3/uL (140-440)
--- NOTE | 2025-03-10 18:14 | CT ---
EXAMINATION TYPE: CT abdomen pelvis wo con DATE OF EXAM: 03/10/2025 5:17 PM COMPARISON: 02/13/2025 CLINICAL INDICATION: Female, 49 years old with history of L flank pain, L flank pain, hx of kidney st ones TECHNIQUE: Axial images were obtained from above the diaphragm to the pubic rami in the axial plane a t 5 mm thick sections. Reconstructed images are reviewed on the computer in the coronal plane. CONTRAST: mL of . Study performed without Oral Contrast DLP: 1314.4 mGycm, Automated exposure control for dose reduction was used. FINDINGS: Limited CT sections are obtained the lung bases. The lung bases are clear. Small hiatal hernia is p resent. CT ABDOMEN: Gastric sleeve is present Liver: Normal Spleen: Normal Pancreas: Normal Adrenal glands: The adrenal glands are normal. Gallbladder: Surgically absent Kidneys: No masses are evident. No hydronephrosis is present. No cysts are present. There is a pun ctate nonobstructing renal stone inferior pole left kidney right nonobstructing mid to inferior later al nonobstructing renal stones present. Findings are stable from comparison Aorta: Vascular calcification is within the aorta. Inferior vena cava: Normal. CT PELVIS: Loops of bowel within the abdomen and pelvis are normal. Diverticular changes are within the sigmoid colon. No acute diverticulitis. There are loops of bowel which are incompletely distended or lack oral contrast limiting their evaluation. Appendix: Normal as visualized. Urinary bladder: Normal. Genitourinary structures: Uterus and ovaries are not identified. Osseous structures: No suspicious lytic or sclerotic lesions. Facet changes are within lumbar spine IMPRESSION: 1. Nonobstructing left renal stones. 2. Diverticulosis without acute diverticulitis. 3. Hiatal hernia. [facility], , 03/10/2025 6:11 PM
[2025-03-10 18:51] VITALS: BP 114/78; PULSE 64; RESP 14
== END 2025-03-10 19:04 | disposition home or self-care (01) ==
LOC: EC 14:22
DX: M54.9 Dorsalgia, unspecified (principal); Z88.8 Allergy status to other drugs, medicaments and biological substances; Z88.1 Allergy status to other antibiotic agents
CPT/HCPCS: 36415; 80053; 82150; 83605; 83690; 85025; 81001; 74176; 99284; 96374; 96375; J2765; J1885